=== PATIENT | male | born 1940 | race Caucasian/White ===

== ENCOUNTER → 2018-04-19 10:49 | Outpatient (BNVA) | payer MEDICARE, SELFPAY | PROVIDERS: PCP Nurse Practitioner Family; Referring Provider Nurse Practitioner Family; Visit Provider Student in an Organized Health Care Education/Training Program | DX: M25.551 Pain in right hip (principal); M25.552 Pain in left hip; M70.61 Trochanteric bursitis, right hip; M70.62 Trochanteric bursitis, left hip | CPT/HCPCS: 20610; 99213; J1040 ==

== ENCOUNTER 2018-10-06 12:19 | Outpatient (REF) | payer MEDICARE, SELFPAY | END 2018-10-06 12:39 | LOC: LBN 12:19 | PROVIDERS: PCP Nurse Practitioner Family; Visit Provider Nurse Practitioner Family | DX: R05 Cough (principal) | CPT/HCPCS: 87077; 87070; 87205 ==

== ENCOUNTER 2018-10-06 15:59 | Outpatient (CLI) | payer MEDICARE, SELFPAY ==
--- NOTE | 2018-10-06 10:42 | DI.RAD_ITS ---
SYMPTOMS/DIAGNOSIS: COPD EXACERBATION, ADVENTITIOUS BREATH SOUNDS, ? PNEUMONIA, ? COARSE CRACKLES LLL, J44.1, R06.89 PA AND LATERAL CHEST: Comparison 03/25/17. The heart size and pulmonary vasculature are within normal limits. The lungs are clear and well expanded. No effusions or pneumothoraces are identified. There is an old compression deformity at T 12. IMPRESSION: No acute pulmonary process.
== END 2018-10-06 16:19 ==
PROVIDERS: PCP Nurse Practitioner Family; Visit Provider Nurse Practitioner Family
DX: J44.1 Chronic obstructive pulmonary disease with (acute) exacerbation (principal); R06.89 Other abnormalities of breathing; R09.89 Other specified symptoms and signs involving the circulatory and respiratory systems
CPT/HCPCS: 71046

== ENCOUNTER 2018-10-27 09:00 | Outpatient (CLI) | payer MEDICARE, SELFPAY ==
[2018-10-27 10:09] LABS: Anion Gap 10.6 mmol/L (3-11); BUN 20 mg/dL (7-18); CO2 26.4 mmol/L (21.0-32.0); CREATININE 0.87 mg/dL (0.70-1.30); Calcium 8.9 mg/dL (8.5-10.1); Chloride 103 mmol/L (98-107); Cholesterol 136 mg/dL (50-200); Glucose 139 mg/dL (70-100); HDL Cholesterol 42 mg/dL (40-60); LDL CHOLESTEROL 74 mg/dL (<100); Magnesium 1.6 mg/dL (1.8-2.4); Potassium 4.1 mmol/L (3.5-5.1); Sodium 140 mmol/L (136-145); Triglyceride 95 mg/dL (30-150)
== END 2018-10-27 09:20 ==
PROVIDERS: PCP Nurse Practitioner Family; Visit Provider Nurse Practitioner Family
DX: I25.10 Atherosclerotic heart disease of native coronary artery without angina pectoris (principal); I10 Essential (primary) hypertension; E83.42 Hypomagnesemia
CPT/HCPCS: 36415; 80048; 80061; 83721; 83735

== ENCOUNTER 2018-12-06 02:02 | Outpatient (CLI) | payer MEDICARE, SELFPAY ==
--- NOTE | 2018-12-12 12:10 | DIABASSESS_ITS ---
DESCRIPTION/ASSESSMENT: Mr Villavicencio presents with his for Medical Nutrition Therapy for diabetes with focus on weight loss due to discomfort and inability to do some activities. He had lost 50 pounds, but has regained 20 over the past few years.A1c 6.6 BMI: NUTRITION: He and his have standard breakfast alternating between egg, potato cooked in olive oil, turkey mendoza with hot cereal, blueberries, banana, sausage, yogurt. Big meal at noon of meat, starch vegetable. Supper ice cream and nuts, cold meat [facility]; chips salsa, cereal and milk. Snacks on nuts. At bedtime he has chocolate milk, sujit crackers. PHYSICAL ACTIVITY: Walks the dog 1 mile every day and is active outside doing chores. MONITORING: Monitors blood sugars fasting in ~150s.; Denies stress. Overall healthy food choices and lifestyle. INTERVENTION: Reviewed food choices; hunger/fullness; times and amounts of food to see where decrease in amount consumed would not decrease satiety. PLAN: Cut out bedtime snack; cut out potatoes in AM; consider hunger when snacking. Monitor blood sugars occasionally at bedtime to assess impact of food choices if disired. IN 909: out 1000 - 3 MNT billed
== END 2018-12-06 02:22 ==
PROVIDERS: PCP Nurse Practitioner Family; Visit Provider Dietitian, Registered
DX: E11.9 Type 2 diabetes mellitus without complications (principal); Z71.3 Dietary counseling and surveillance
CPT/HCPCS: 97802

== ENCOUNTER → 2019-01-23 08:36 | Outpatient (BNVA) | payer MEDICARE, SELFPAY | PROVIDERS: PCP Nurse Practitioner Family; Visit Provider Psychiatry & Neurology Neurology | DX: G25.0 Essential tremor (principal); E11.9 Type 2 diabetes mellitus without complications; I10 Essential (primary) hypertension; J44.9 Chronic obstructive pulmonary disease, unspecified; Z87.891 Personal history of nicotine dependence | CPT/HCPCS: 99213 ==

== ENCOUNTER 2019-02-01 10:33 | Outpatient (REF) | payer MEDICARE, SELFPAY ==
[2019-02-01 12:33] LABS: COMMENT (LAB VIEW ONLY) 143.01 mg/dL; Microalb ug/mg Crea 4.6 ug/mg Cr
== END 2019-02-01 10:53 ==
LOC: LBN 10:33
PROVIDERS: PCP Nurse Practitioner Family; Visit Provider Nurse Practitioner Family
DX: E11.9 Type 2 diabetes mellitus without complications (principal)
CPT/HCPCS: 82043; 82570

== ENCOUNTER 2020-02-06 04:00 | Outpatient (CLI) | payer MEDICARE, SELFPAY ==
[2020-02-06 08:44] LABS: Hemoglobin A1C 6.3 % (3.8-5.6)
[2020-02-06 09:26] LABS: ALT 26 U/L (16-63); AST 18 U/L (15-37); Albumin 4.1 g/dL (3.4-5.0); Alkaline Phosphatase 81 U/L (46-116); Anion Gap 8.2 mmol/L (3-11); BUN 20 mg/dL (7-18); Bilirubin, Total 0.8 mg/dL (0.2-1.0); CO2 26.8 mmol/L (21.0-32.0); CREATININE 0.92 mg/dL (0.70-1.30); Calcium 9.1 mg/dL (8.5-10.1); Calculated LDL 53 mg/dL (<100); Chloride 105 mmol/L (98-107); Cholesterol 113 mg/dL (<200); Glucose 142 mg/dL (74-106); HDL Cholesterol 42 mg/dL (40-60); Magnesium 1.9 mg/dL (1.8-2.4); Potassium 4.3 mmol/L (3.5-5.1); Sodium 140 mmol/L (136-145); Total Protein 6.7 g/dL (6.4-8.2); Triglyceride 94 mg/dL (<150)
[2020-02-06 09:36] LABS: COMMENT (LAB VIEW ONLY) 127.31 mg/dL; Microalb ug/mg Crea 4.8 ug/mg Cr
== END 2020-02-06 04:20 ==
PROVIDERS: PCP Nurse Practitioner Family; Visit Provider Nurse Practitioner Family
DX: E11.9 Type 2 diabetes mellitus without complications (principal); E78.5 Hyperlipidemia, unspecified; E83.42 Hypomagnesemia
CPT/HCPCS: 80053; 80061; 82043; 82570; 83036; 83735

== ENCOUNTER 2020-04-07 09:04 | Outpatient (CLI) | payer MEDICARE, SELFPAY ==
[2020-04-09 13:41] LABS: Patient Race White; SARS-CoV-2 RNA Undetected (Undetected); SARS-CoV-2 Specimen Source Nasopharynx
== END 2020-04-07 09:24 ==
PROVIDERS: PCP Nurse Practitioner Family; Visit Provider Nurse Practitioner Family
DX: Z11.59 Encounter for screening for other viral diseases (principal)
CPT/HCPCS: U0003

== ENCOUNTER 2021-02-19 04:16 | Outpatient (CLI) | payer OTHER, SELFPAY ==
[2021-02-19 08:07] LABS: Abs Immature Grans 0.29 10^3/uL (0.0-0.06); Absolute Basophil Count 0.07 10^3/uL (0.0-0.2); Absolute Eosinophil Count 0.34 10^3/uL (0.0-0.7); Absolute Lymphocyte Count 1.46 10^3/uL (1.2-3.4); Absolute Monocyte Count 0.64 10^3/uL (0.1-0.8); Absolute Neutrophil Count 5.37 10^3/uL (1.2-6.7); Basophils % 0.9; Eosinophils % 4.2; HCT 40.1 % (40.0-50.0); HGB 13.1 g/dL (13.5-17.5); Immature Grans % 3.5; Lymphocytes % 17.9; MCH 30.5 pg (27.0-33.0); MCHC 32.7 % (32.0-36.0); MCV 93.5 fL (80-95); MPV 9.1 fL (8.0-11.0); Monocytes % 7.8; Neutrophils % 65.7; Nucleated RBC 0 %; Platelet Count 225 10^3/uL (130-400); RBC 4.29 10^6/uL (4.36-5.78); RDW 13.1 % (11.8-14.1); RDW-SD 44.8 fL; WBC 8.17 10^3/uL (4.4-10.8)
[2021-02-19 08:22] LABS: COMMENT (LAB VIEW ONLY) 106.43 mg/dL; Microalb ug/mg Crea 7.9 ug/mg Cr
[2021-02-19 08:25] LABS: Hemoglobin A1C 6.8 % (<5.7)
[2021-02-19 08:26] LABS: ALT 22 U/L (16-63); AST 14 U/L (15-37); Albumin 3.7 g/dL (3.4-5.0); Alkaline Phosphatase 95 U/L (46-116); Anion Gap 10.6 mmol/L (3-11); BUN 18 mg/dL (7-18); Bilirubin, Total 0.6 mg/dL (0.2-1.0); CO2 25.4 mmol/L (21.0-32.0); Calcium 8.7 mg/dL (8.5-10.1); Calculated LDL 65 mg/dL (<100); Chloride 103 mmol/L (98-107); Cholesterol 122 mg/dL (<200); Glucose 153 mg/dL (74-106); HDL Cholesterol 38 mg/dL (40-60); Potassium 4.3 mmol/L (3.5-5.1); Sodium 139 mmol/L (136-145); Total Protein 6.8 g/dL (6.4-8.2); Triglyceride 96 mg/dL (<150)
== END 2021-02-19 04:17 | disposition home or self-care (01) ==
PROVIDERS: PCP Nurse Practitioner Family; Visit Provider Nurse Practitioner Family
DX: E11.9 Type 2 diabetes mellitus without complications (principal); E78.5 Hyperlipidemia, unspecified; I10 Essential (primary) hypertension; K76.0 Fatty (change of) liver, not elsewhere classified; Z51.81 Encounter for therapeutic drug level monitoring
CPT/HCPCS: 36415; 80053; 80061; 82043; 82570; 83036; 85025

== ENCOUNTER 2021-02-20 01:22 | Outpatient (CLI) | payer OTHER, SELFPAY ==
[2021-02-20] MEDS: Albuterol HFA 18 GM 200 PUFF INH IH (11:17)
[2021-02-20] MEDS: Inhaler, Assist Device 1 EACH MC (11:17)
--- NOTE | 2021-02-22 18:37 | W.PFT ---
Date of service: 02/20/21 Time of Service: 10:13 Pulmonary Function Test Result Interpretation Spirometry: There is moderate airflow obstruction with significant bronchodilator response Lung Volumes: Lung volumes are normal Diffusion Capacity: Diffusion is normal Airway Pressure: Airway resistance is normal Impression Moderate airflow obstruction with a significant bronchodilator response. Note: When compared to 09/05/12, the FEV1, FVC and DLCO have all decreased. Clinical Correlation therefore is recommended.
== END 2021-02-20 01:23 | disposition home or self-care (01) ==
PROVIDERS: PCP Nurse Practitioner Family; Visit Provider Student in an Organized Health Care Education/Training Program
DX: J44.9 Chronic obstructive pulmonary disease, unspecified (principal)
CPT/HCPCS: 94060; 94618; 94726; 94729

== ENCOUNTER 2021-03-16 11:35 | Outpatient (CLI) | payer OTHER, SELFPAY ==
--- NOTE | 2021-03-16 15:13 | DI.RAD_ITS ---
Exam(s) XR RIBS LT W PA LAT CHEST EXAM: XR RIBS LT W PA LAT CHEST CLINICAL HISTORY: Pain on ribs 10-12 after a fall, r/o frx, R07.81PLEURODYNIA TECHNIQUE: 2D digital imaging was performed. COMPARISON: No exams were available for comparison FINDINGS: MEDIASTINUM: Normal. HEART: Normal. PULMONARY VASCULATURE: Normal. LUNGS: Clear. PLEURAL SPACE: No pleural effusion or pneumothorax. BONE:Normal. LEFT RIBS: Normal. OTHER FINDINGS:Sternal wires are in place. IMPRESSION: 1. No acute pulmonary findings. 2. Unremarkable left ribs. DATA REPOSITORY: RADIATION DOSE DELIVERED:
== END 2021-03-16 11:55 ==
PROVIDERS: PCP Nurse Practitioner Family; Visit Provider Family Medicine
DX: R07.81 Pleurodynia (principal)
CPT/HCPCS: 71046; 71100

== ENCOUNTER 2021-06-09 01:18 | Outpatient (CLI) | payer MEDICARE, SELFPAY ==
[2021-06-09 08:26] LABS: CREATININE 0.8 mg/dL (0.70-1.30)
[2021-06-09] MEDS: Normal Saline - Diluent 50 ML VIAL IV (08:40)
[2021-06-09] MEDS: Omnipaque 350 MG/ML 100 ML BTL IJ (08:41)
--- NOTE | 2021-06-09 08:59 | DI.CT_ITS ---
Exam(s) CT ABDOMEN WO/W EXAM: CT ABDOMEN WO/W CLINICAL HISTORY: adrenal nodule seen on LDCT,E27.8 TECHNIQUE: COMPARISON: CT RENAL COLIC WO CONTRAST from 04/27/2015 FINDINGS: CT examination of the upper abdomen was performed prior to and following intravenous infusion of 100 cc of Omnipaque 350. Venous phase images 15 minutes delayed images were obtained. A recent LD CT of the chest showed left adrenal nodule. On today's examination to left adrenal nodules are visible, each measuring 1.4 cm in diameter. These each have attenuation on noncontrast scanning between -30 and -40 Hounsfield units, these are consis tent with adrenal adenomas. Small nodules also show negative Hounsfield units on both venous phase a nd delayed imaging. Liver and spleen appear normal as does the pancreas. Gallbladder is contracted. No biliary dilatati on. No adenopathy identified. Multiple bilateral renal cysts and nonobstructing renal calculi are seen. IMPRESSION: There are 2 left adrenal nodules, these each have appearance consistent with adrenal adenomas and no further follow-up is recommended. RADIATION DOSE DELIVERED: 2,078.21mGy.cm Total DLP CTDIvol RADIATION OPTIMIZATION: All CT scans at this facility use at least one of these dose optimization te chniques: automated exposure control; mA and/or kV adjustment per patient size (includes targeted exa ms where dose is matched to clinical indication); or iterative reconstruction.
== END 2021-06-09 01:38 ==
PROVIDERS: PCP Nurse Practitioner Family; Visit Provider Student in an Organized Health Care Education/Training Program
DX: E27.8 Other specified disorders of adrenal gland (principal)
CPT/HCPCS: 74170; 82565; J3490

== ENCOUNTER 2021-06-22 15:30 | Outpatient (CLI) | payer MEDICARE, SELFPAY ==
--- NOTE | 2021-06-22 11:15 | DI.RAD_ITS ---
Exam(s) XR LUMBAR SPINE COMPLETE EXAM: XR LUMBAR SPINE COMPLETE CLINICAL HISTORY: assess bony alignment,decreased rom, acute lumbar radiculopathy,m54.16,. TECHNIQUE: 2D digital imaging was performed. COMPARISON: No exams were available for comparison FINDINGS: No evidence of acute fracture nor listhesis. Multilevel disc space narrowing noted at each level in the lumbosacral spine. Also degenerative facet joint [id number]. Bridging right-sided os teophytes at L2-3 level. Sacroiliac joints appear unremarkable. No osseous lesions. IMPRESSION: Multilevel chronic degenerative disc disease. At L3-4 level the amount of narrowing on the right nirali e of the disc space exceeds that on the left and this may imply asymmetric foraminal stenosis. There is probably also an element of central spinal canal stenosis in the lumbosacral spinal column. DATA REPOSITORY: RADIATION DOSE DELIVERED:
== END 2021-06-22 15:50 ==
PROVIDERS: PCP Nurse Practitioner Family; Visit Provider Nurse Practitioner Adult Health
DX: M51.36 Other intervertebral disc degeneration, lumbar region (principal); M25.78 Osteophyte, vertebrae
CPT/HCPCS: 72110

== ENCOUNTER 2021-07-25 09:08 | Emergency (ER) | payer OTHER, MEDICARE, SELFPAY ==
[2021-07-25 09:12] VITALS: BP 184/72; PULSE 69; RESP 20; TEMP 36; O2SAT 97
--- NOTE | 2021-07-25 09:30 | DI.CT_ITS ---
Exam(s) CT ABDOMEN PELVIS W EXAM: CT ABDOMEN PELVIS W CLINICAL HISTORY: L lower abd pain, L low back/sciatic pain. TECHNIQUE: Imaging Protocol: Axial computed tomography images with coronal and sagittal reformatted images were created and reviewed CONTRAST MATERIAL: Intravenous: Omnipaque 350 Contrast volume:100 ml Oral: / no COMPARISON: CT CT ABDOMEN WO/W from 06/09/2021 FINDINGS: ABDOMEN: Lung Bases: Mild dependent changes. Is dilated left ventricle and left atrium. Liver: Mild fatty infiltration.. No measurable mass. Gallbladder and biliary tract: No radiodense calculus or dilation. Pancreas: Normal density, no inflammatory process. Stable calcification in head. Spleen: Normal. Kidneys: Normal size, contour and axis. Bilateral cysts and nonobstructing stones. Adrenal glands: Stable small low-density nodule left. Abdominal Aorta: Abdominal portion non-dilated. Severe atherosclerotic changes Abdominal wall: There is a stable subxiphoid fatty containing hernia. PELVIS: Bladder: No gross wall thickening. No calculi.No focal mass. Bowel: Diverticulosis. No obstruction or bowel wall thickening. Appendix normal. Peritoneal cavity: No ascites, collection or mesenteric inflammatory response. Bones: Stable compression fracture of T11, moderate. Severe degenerative disc changes are noted thro ughout, most severe at L1-2. The prominent facet degenerative changes and disc bulging is also prese nt. Mild spondylolisthesis L4-5 secondary to facet degenerative changes. Severe central canal steno sis and severe neural foraminal narrowing is present at this level. Reproductive organs: Within normal limits. Lymph nodes: Unremarkable. Impression: Nonobstructing bilateral renal calculi. Severe degenerative changes in the spine causing neural foraminal and central canal stenosis. Stable appearing moderate compression fracture of T11. RADIATION DOSE DELIVERED: 1,514.52mGy.cm Total DLP DATA REPOSITORY: All CT scans at this facility are submitted to the National Radiology Data Registry (NRDR) Dose Index Registry (DIR) with the [employer] ([employer]). RADIATION OPTIMIZATION: All CT scans at this facility use at least one of these dose optimization te chniques: automated exposure control; mA and/or kV adjustment per patient size (includes targeted exa ms where dose is matched to clinical indication); or iterative reconstruction.
--- NOTE | 2021-07-25 09:35 | ED.GENADUL_ITS ---
Discharge Plan Disposition Patient Disposition: HOME Condition: Improving Discharge Details Clinical Impression: Acute left-sided back pain with sciatica Primary Care Provider: Sangita Rose ED Provider: Marko Romero Home Meds and New Rx's Prescriptions: New prednisone 20 mg tablet 20 mg PO BID 4 Days Qty: 8 RF: 0 Continued atorvastatin 80 mg tablet 80 mg PO DAILY RF: 0 magnesium oxide 500 mg capsule 500 mg PO DAILY Qty: 90 RF: 3 cbd 1,200 mg solution PO RF: 0 pantoprazole 20 mg tablet,delayed release (DR/EC) 20 mg PO DAILY Qty: 90 RF: 0 acetaminophen 500 mg tablet 1,000 mg PO TID PRNRF: 0 methocarbamol 500 mg tablet 500 - 1,000 mg PO TID PRN (Reason: muscle spasm) Qty: 40 RF: 0 albuterol sulfate 2.5 mg/0.5 mL solution for nebulization 2.5 mg Inhalation Q4-6H PRN Qty: 60 RF: 3 ibuprofen 200 mg tablet 400 mg PO BID PRNRF: 0 Hold Instructions: Home Medication placed on hold at Doctor's office aspirin 81 MG tablet,delayed release (DR/EC) 81 mg PO DAILY RF: 0 (DME) Aerochamber Plus Flow-Vu,S Msk 1 EACH spacer 1 ea Miscellaneous PRN RF: 0 polyethylene glycol 3350 [GlycoLax] 527 GM powder 17 g PO DAILY RF: 0 (DME) lancets [OneTouch Delica Lancets] 1 EACH misc 1 ea Miscellaneous DAILY Qty: 100 RF: 3 albuterol sulfate [ProAir HFA] 8.5 GM HFA aerosol inhaler 1 - 2 puff Inhalation Q4-6H PRN Qty: 1 RF: 3 Breo Ellipta 1 EACH blister with device 1 ea Inhalation DAILY RF: 0 Incruse Ellipta 62.5 MCG blister with device 62.5 mcg Inhalation DAILY RF: 0 cholecalciferol (vitamin D3) 25 mcg (1,000 unit) tablet 1,000 unit PO BID RF: 0 benzonatate 100 mg capsule 100 mg PO TID PRN (Reason: cough) Qty: 90 RF: 3 (DME) Blood Glucose Test Strip See Rx Instructions .ROUTE .MEDSUPPLY Qty: 100 RF: 3 metoprolol succinate 25 mg tablet extended release 24 hr 25 mg PO DAILY Qty: 90 RF: 3 losartan 25 mg tablet 12.5 mg PO DAILY Qty: 45 RF: 3 primidone 50 mg tablet 100 mg PO HS Qty: 180 RF: 3 citalopram 40 mg tablet 40 mg PO DAILY Qty: 90 RF: 3 Discharge Instructions Instructions: Back Pain (ED) Additional Instructions: Follow-up with physical therapy this week as planned. Avoid heavy lifting, bending over, prolonged car ride or sitting as these may exacerbate your discomfort. Take prednisone as prescribed until finished, next dose is tomorrow. You may use the provided hydrocodone if needed for severe or break pain. This medication contains 325 mg of Tylenol and you should not take it in addition to your Tylenol. May apply ice to area to reduce discomfort. Return to the emergency department for any acute concerns. Medical Decision Making 80-year-old male presents with his from home. He has had 2 weeks of left low back/left SI joint pain for which he has had a number of outpatient trials including physical therapy with water based treatment, an x-ray obtained on June 22 showing degenerative disease of the L-spine. He has also been placed on methocarbamol he states the pain was improved after physical therapy on Tuesday and over the past 2-1/2 days has worsened and now located in his left SI joint area with some radiation to the hip. He also endorses left lower quadrant abdominal pain that he began to feel this morning. Patient is slightly hypertensive and in some discomfort that he describes as mild to moderate. His vital signs show a blood pressure of 184/72, temp of 36. He is tender in the left SI joint, left sciatic notch and somewhat so although mildly in the left lower quadrant. Differential diagnosis is broad including sciatica, lumbar radiculopathy, bony disease, pyriformis syndrome, & must exclude mass or inflammation of the left lower quadrant. Patient IV established, given parenteral meds, further laboratory testing and CT imaging. The patient's diagnostic studies reveal reassuring chemistries, unremarkable CBC and urinalysis that is concentrated. CT imaging reveals multilevel degenerative disc disease of the spine. Chronic T11 compression deformity. Note of diverticulosis, note of right renal calculi, note of borderline splenomegaly. Most consistent with sciatica or piriformis syndrome. We will discussed with the patient low-dose steroids and ongoing NSAID, physical therapy stretching. Lab Data Lab results reviewed: Yes I reviewed the patient's lab results. Labs: Laboratory Results - last 24 hr 07/25/21 07/25/21 07/25/21 09:48 09:48 09:48 WBC 6.99 RBC 4.30 L Hgb 13.5 Hct 40.3 MCV 93.7 MCH 31.4 MCHC 33.5 RDW 13.0 Plt Count 188 MPV 9.4 Immature Gran % 1.1 Neutrophils % 71.7 Lymphocytes % 14.3 Monocytes % 8.7 Eosinophils % 3.6 Basophils % 0.6 Nucleated RBC % 0 Absolute Neutrophils 5.01 Absolute Lymphocytes 1.00 L Absolute Monocytes 0.61 Absolute Eosinophils 0.25 Absolute Basophils 0.04 VBG Lactate 1.4 Sodium 139 Potassium 4.3 Chloride 104 Carbon Dioxide 28.4 Anion Gap 6.6 BUN 14 Creatinine 0.9 Estimated GFR/1.73 m2 >= 60.00 Glucose 162 H Calcium 8.6 Total Bilirubin 0.7 AST 15 ALT 21 Alkaline Phosphatase 96 Total Protein 6.7 Albumin 3.8 Lipase 110 Urine Color Urine Clarity Urine pH Ur Specific [place] Urine Protein Urine Ketones Urine Blood Urine Nitrite Urine Bilirubin Urine Urobilinogen Ur Leukocyte Esterase Urine Glucose 07/25/21 09:50 WBC RBC Hgb Hct MCV MCH MCHC RDW Plt Count MPV Immature Gran % Neutrophils % Lymphocytes % Monocytes % Eosinophils % Basophils % Nucleated RBC % Absolute Neutrophils Absolute Lymphocytes Absolute Monocytes Absolute Eosinophils Absolute Basophils VBG Lactate Sodium Potassium Chloride Carbon Dioxide Anion Gap BUN Creatinine Estimated GFR/1.73 m2 Glucose Calcium Total Bilirubin AST ALT Alkaline Phosphatase Total Protein Albumin Lipase Urine Color Yellow Urine Clarity Clear Urine pH 5.5 Ur Specific [place] >= 1.030 H Urine Protein Negative Urine Ketones Negative Urine Blood Negative Urine Nitrite Negative Urine Bilirubin Negative Urine Urobilinogen 0.2 Ur Leukocyte Esterase Negative Urine Glucose Negative HPI General Mode of arrival: ambulatory . Date/Time Provider Initiated Documentation: 07/25/21 09:09 . Limitations to Documentation: no limitations . Information obtained by: patient . History of Present Illness 80 year old M presents to the emergency department with the chief complaint of Left lower quadrant and left low back pain, described as moderate and similar to prior episodes, Quality is described as dull and constant, and is localized to the back, abdomen and left. Patient distal. Patient started experiencing this week(s) and it has been intermittent. Rest improves symptom(s), Patient notes denies fever/chills and loss of appetite. Patient did receive the following treatments prior to arrival, other (Physical therapy, methocarbamol, [id number] pain medication) Related Data Home Medications Medication Instructions Recorded Confirmed Aerochamber Plus Flow-Vu,S Msk 09/28/12 07/25/21 aspirin 81 mg PO DAILY tab-cap 09/28/12 07/25/21 lancets [OneTouch Delica Lancets] #100 ea 10/13/16 07/15/21 polyethylene glycol 3350 [GlycoLax] 17 g PO DAILY 10/13/16 07/25/21 albuterol sulfate [ProAir HFA] 1 - 2 puff INHALATION Q4-6H PRN #1 04/18/17 07/25/21 inhaler Breo Ellipta 1 ea INHALATION DAILY 09/28/17 07/25/21 Incruse Ellipta 62.5 mcg INHALATION DAILY 09/28/17 07/25/21 atorvastatin 80 mg tablet 80 mg PO DAILY 04/07/18 07/25/21 magnesium oxide 500 mg capsule 500 mg PO DAILY #90 tab-cap 11/02/18 07/25/21 cholecalciferol (vitamin D3) 25 1,000 unit PO BID tab 11/01/19 07/25/21 mcg (1,000 unit) tablet benzonatate 100 mg capsule 100 mg PO TID PRN #90 tab-cap 11/08/19 07/25/21 blood sugar diagnostic #100 each 07/24/20 07/25/21 cbd PO 08/15/20 07/15/21 pantoprazole 20 mg tablet,delayed 20 mg PO DAILY #90 tab-cap 08/15/20 07/25/21 release metoprolol succinate 25 mg 25 mg PO DAILY #90 tab-cap 10/06/20 07/25/21 tablet,extended release 24 hr losartan 25 mg tablet 12.5 mg PO DAILY #45 tab-cap 11/10/20 07/25/21 primidone 50 mg tablet 100 mg PO HS #180 tab-cap 11/27/20 07/25/21 citalopram 40 mg tablet 40 mg PO DAILY #90 tab-cap 01/15/21 07/25/21 albuterol sulfate 2.5 mg/0.5 mL 2.5 mg INHALATION Q4-6H PRN #60 02/09/21 07/25/21 solution for nebulization vial ibuprofen 200 mg tablet 400 mg PO BID PRN tab 06/15/21 07/25/21 acetaminophen 500 mg tablet 1,000 mg PO TID PRN tab 07/15/21 07/25/21 methocarbamol 500 mg tablet 500 - 1,000 mg PO TID PRN #40 tab 07/15/21 07/25/21 prednisone 20 mg PO BID 4 Days #8 tab 07/25/21 Previous Rx's Medication Instructions Recorded albuterol sulfate [ProAir HFA] 1 - 2 puff INHALATION Q4-6H PRN #1 04/18/17 inhaler magnesium oxide 500 mg capsule 500 mg PO DAILY #90 tab-cap 11/02/18 benzonatate 100 mg capsule 100 mg PO TID PRN #90 tab-cap 11/08/19 blood sugar diagnostic #100 each 07/24/20 pantoprazole 20 mg tablet,delayed 20 mg PO DAILY #90 tab-cap 08/15/20 release metoprolol succinate 25 mg 25 mg PO DAILY #90 tab-cap 10/06/20 tablet,extended release 24 hr losartan 25 mg tablet 12.5 mg PO DAILY #45 tab-cap 11/10/20 primidone 50 mg tablet 100 mg PO HS #180 tab-cap 11/27/20 citalopram 40 mg tablet 40 mg PO DAILY #90 tab-cap 01/15/21 albuterol sulfate 2.5 mg/0.5 mL 2.5 mg INHALATION Q4-6H PRN #60 02/09/21 solution for nebulization vial methocarbamol 500 mg tablet 500 - 1,000 mg PO TID PRN #40 tab 07/15/21 prednisone 20 mg PO BID 4 Days #8 tab 07/25/21 Allergies Allergy/AdvReac Type Severity Reaction Status Date / Time codeine AdvReac Unknown Verified 07/25/21 09:17 General Stated Complaint: Nk/Back Pain YUE: 3 Review of Systems Narrative: 6 systems reviewed and otherwise negative, immunized against COVID-19 x3 PFSH All Active Problems (Updated 07/25/21 @ 11:27 by Marko Romero MD) Acute left-sided back pain with sciatica (Acute) Adrenal nodule (Acute) Rib pain on left side (Acute) Trochanteric bursitis of both hips (Chronic) Non-alcoholic fatty liver disease (Chronic 09/29/12) Type 2 diabetes mellitus (Chronic) Dx: 10/2018 Obesity (BMI 30-39.9) (Chronic) Advance directive in chart (Chronic 04/22/15) On-file with [facility] as of 04/22/2015 Sensorineural hearing loss, bilateral (Chronic 08/29/17) Osteoarthritis of knee (Chronic 08/13/13) Hypomagnesemia (Chronic 10/07/17) Hyperlipidemia, unspecified (Chronic 07/09/11) LDL GOAL 100 Gastroesophageal reflux disease (Chronic 07/09/11) Essential tremor (Chronic 07/27/11) Essential hypertension (Chronic 07/09/11) GOAL <130/80 Depression (Chronic 06/04/14) Long-term Celexa Rx Chronic obstructive pulmonary disease (COPD) (Chronic 09/29/12) MILD, 08/2012 PFTs FEV1 2.06 (70% pred and FVC), no response to bronchodilator; 11/17/15 bronchoscopy [facility]: NEG for [employer], fungus, & bacteria; cytology NEG for malignancy Cardiomyopathy (Chronic 04/10/12) BPH (benign prostatic hyperplasia) (Chronic 04/10/12) ASCVD (arteriosclerotic cardiovascular disease) (Chronic) S/p 5 vessel CABG 1995 Echo 09/27/2014 with normal LVEF Medical History Cataract 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 Essential tremor Sister Hypertensive disorder, systemic arterial Heart disease Brother , [place] at age 78. Heart disease Essential tremor Brother Heart disease Daughter Essential tremor Social History Smoking/Tobacco Use Status: Former Tobacco Use Smoking risk assessment performed?: Yes Alcohol Intake: current Alcohol Intake frequency: holidays/special occasions only Drug use: Never Substance use type: does not use Adopted: No Caregiver/Support person: No Foster care: No Household members: spouse Number of Children: 3 Communication Needs: Hard of Hearing Education Level: high school current occupation: Ret[employer] Pets and animals: Yes Pets and animals: dog(s) Current gender identity: male What type of physical activity do you participate in: walking Duration: > 90 minutes/day Frequency: daily Seatbelt use: always Water heater temp set <120 deg: Yes Working smoke detector in home: Yes Fire extinguisher in home: Yes Carbon monox detector in home: Yes Do you feel safe at home: Yes Do you feel safe in your relationship?: Yes Additional Social history: He has 5 step-children in addition to 3 biological. Exam Narrative Exam Narrative: GEN: awake, alert, oriented 3. Pleasant, well groomed, interactive. HEAD: Normocephalic, atraumatic ENT: Mucous membranes moist, oropharynx unremarkable, External ear exam unremarkable EYES: PERRL, EOMI NECK: Full ROM, no ANGELITO, no menigismus CHEST/RESP: Nontender, clear to auscultation bilateral, no wheeze/rhonchi/rales CARDIOVASCULAR: RRR, no murmur, rub [place]. 2+ Rad pulse bilateral ABDOMEN: Soft, tender left lower quadrant to deep palpation without rebound or guarding, no mass. +Bowel sounds EXT: Full ROM, no edema, no rash. No pain with internal or external rotation of hips. Sensation intact throughout including saddle distribution. Great toe proprioception intact bilaterally. Motor 5 out of 5 bilaterally. Tender at left sciatic notch, left SI joint. Back: No midline tenderness, step-off or deformity. Neuro: Grossly normal neurologic exam, conversant, interactive. Psych: Speech fluent, thoughts congruent, affect normal Course Vital Signs Vital signs: Vital Signs Temperature 36 C L 07/25/21 09:12 Pulse 69 07/25/21 09:12 Respiratory Rate 20 07/25/21 09:12 Blood Pressure 184/72 H 07/25/21 09:12 Pulse Oximetry 97 07/25/21 09:12 Temperature 36 C L 07/25/21 09:12 Temperature Source Temporal Artery Scan 07/25/21 09:12 Pulse 69 07/25/21 09:12 Respiratory Rate 20 07/25/21 09:12 Respiratory Effort Non-Labored 07/25/21 09:15 Blood Pressure 184/72 H 07/25/21 09:12 Blood Pressure Position Supine 07/25/21 09:12 Pulse Oximetry 97 07/25/21 09:12 Oxygen Delivery Method Room Air 07/25/21 09:12 Oxygen Flow Rate 0 07/25/21 09:12 Pain Level 9 07/25/21 09:18
[2021-07-25] MEDS: Normal Saline 1,000 ML 125 ML IV (09:48)
[2021-07-25 09:53] LABS: Lactate 1.4 mmol/L (0.6-1.4)
[2021-07-25] MEDS: ACETAMINOPHEN 1,000 MG/100 ML BTL 400 MG IVPB (09:53)
[2021-07-25 09:56] LABS: Abs Immature Grans 0.08 10^3/uL (0.0-0.06); Absolute Basophil Count 0.04 10^3/uL (0.0-0.2); Absolute Eosinophil Count 0.25 10^3/uL (0.0-0.7); Absolute Monocyte Count 0.61 10^3/uL (0.1-0.8); Absolute Neutrophil Count 5.01 10^3/uL (1.2-6.7); Basophils % 0.6; Eosinophils % 3.6; HCT 40.3 % (40.0-50.0); HGB 13.5 g/dL (13.5-17.5); Immature Grans % 1.1; Lymphocytes % 14.3; MCH 31.4 pg (27.0-33.0); MCHC 33.5 % (32.0-36.0); MCV 93.7 fL (80-95); MPV 9.4 fL (8.0-11.0); Monocytes % 8.7; Neutrophils % 71.7; Nucleated RBC 0 %; Platelet Count 188 10^3/uL (130-400); RDW-SD 44.7 fL; WBC 6.99 10^3/uL (4.4-10.8)
[2021-07-25 09:59] LABS: Bilirubin Negative (Negative); Blood Negative (Negative); Clarity Clear (Clear); Glucose Negative (Negative); Ketones Negative (Negative); Leukocyte Esterase Negative (Negative); Nitrite Negative (Negative); Specific Gravity >= 1.030 (1.005-1.025); Urobilinogen 0.2 EU/dL (Up TO 0.2); pH 5.5 (5-8)
[2021-07-25 10:10] LABS: ALT 21 U/L (16-63); AST 15 U/L (15-37); Albumin 3.8 g/dL (3.4-5.0); Alkaline Phosphatase 96 U/L (46-116); Anion Gap 6.6 mmol/L (3-11); BUN 14 mg/dL (7-18); Bilirubin, Total 0.7 mg/dL (0.2-1.0); CO2 28.4 mmol/L (21.0-32.0); CREATININE 0.9 mg/dL (0.70-1.30); Calcium 8.6 mg/dL (8.5-10.1); Chloride 104 mmol/L (98-107); Glucose 162 mg/dL (74-106); Lipase 110 U/L (73-393); Potassium 4.3 mmol/L (3.5-5.1); Sodium 139 mmol/L (136-145); Total Protein 6.7 g/dL (6.4-8.2)
[2021-07-25] MEDS: Omnipaque 350 MG/ML 100 ML BTL IJ (10:53)
--- NOTE | 2021-07-25 11:17 | DI.VRAD_ITS ---
PROCEDURE INFORMATION: Exam: CT Abdomen And Pelvis With Contrast Exam date and time: 07/25/2021 9:35 AM Age: 80 years old Clinical indication: Other: L lower abd pain, L low back/sciatic pain TECHNIQUE: Imaging protocol: Computed tomography of the abdomen and pelvis with contrast. Contrast material: OMNIPAQUE 350; Contrast volume: 100 ml; Contrast route: INTRAVENOUS (IV); COMPARISON: CT ABDOMEN WO/W 06/09/2021 8:41 AM FINDINGS: Lungs: Mild dependent changes at the lung bases. Liver: Stable subcentimeter low-attenuation structure in the lateral segment of left hepatic lobe, too small to characterize by CT, but likely benign. Otherwise unremarkable liver. Gallbladder and bile ducts: Normal. No calcified stones. No ductal dilation. Pancreas: Stable linear calcification in the pancreatic head. Otherwise unremarkable pancreas. Spleen: Calcified splenic granuloma. 13.1 cm maximum dimension of the spleen. Adrenal glands: Fat containing left adrenal nodule, consistent with a benign myelolipoma requiring no further follow-up, measuring 1.2 x 1.1 cm (-25 HU), stable. Unremarkable right adrenal gland. Kidneys and ureters: Rounded water attenuation cystic structures in the right kidney, requiring no further follow-up, measuring as large as 3 cm in the right lower pole. Rounded water attenuation simple cyst in the left kidney, which requires no further follow-up, measuring 1.4 cm in the lower pole. Two nonobstructive right kidney stones, measuring as large as 6 mm in the upper pole. Two nonobstructive left kidney stones, measuring as large as 3 mm. Otherwise unremarkable kidneys. Stomach and bowel: Scattered colonic diverticula, without evidence of diverticulitis. No other gross bowel abnormalities. No bowel obstruction. Appendix: A normal appendix is seen. Intraperitoneal space: Unremarkable. No free air. No significant fluid collection. Vasculature: Unremarkable. No abdominal aortic aneurysm. Lymph nodes: Unremarkable. No enlarged lymph nodes. Urinary bladder: Unremarkable as visualized. Reproductive: Unremarkable as visualized. Bones/joints: Demineralization of the osseous structures somewhat limits sensitivity for detection of fractures. Median sternotomy wires. No acute or suspicious osseous abnormalities. Chronic compression deformity of T11 superior vertebral endplate which demonstrates moderate loss of height. Severe degenerative disc disease is seen at L1-L2, with associated marked disc space narrowing and sclerosis of the vertebral endplates. Moderate disc space height loss at L2 through L4. Mild disc space height loss at L5/S1. Grade I degenerative anterior spondylolisthesis of L4 on L5. Soft tissues: Small to moderate size stable fat containing subxiphoid ventral midline hernia. IMPRESSION: 1. Diverticulosis. 2. Bilateral right renal calculi. 3. Borderline splenomegaly. 4. Chronic compression deformity of T11 superior vertebral endplate which demonstrates moderate loss of height. 5. Severe multilevel degenerative disc disease. Dictated and Authenticated by: Patience Martinez MD. Ordering:CHARLOTTE Zhu MD
[2021-07-25 11:32] VITALS: BP 129/65; RESP 16; O2SAT 96
[2021-07-25] MEDS: predniSONE 20 MG TAB 40 MG PO (11:32)
[2021-07-25 11:43] VITALS: BP 129/65; PULSE 69; RESP 16; TEMP 36; O2SAT 96
== END 2021-07-25 11:45 | disposition home or self-care (01) ==
PROVIDERS: Emergency Provider Emergency Medicine; PCP Nurse Practitioner Family
DX: M54.42 Lumbago with sciatica, left side (principal); R10.32 Left lower quadrant pain; I10 Essential (primary) hypertension; M51.36 Other intervertebral disc degeneration, lumbar region
CPT/HCPCS: 36415; 80053; 83690; 96365; 96375; 99285; 74177; 81003; 83605; 85025; 99284; J0131; J3490; J7512

== ENCOUNTER 2022-04-07 11:56 | Outpatient (REF) | payer MEDICARE, SELFPAY ==
[2022-04-08 20:00] LABS: Albumin ug/mg Crea 7 (<30); Albumin, Ur 0.9 mg/dL (See Note); Creatinine, Ur 132.8 mg/dL (See Note)
== END 2022-04-07 11:57 | disposition home or self-care (01) ==
LOC: LBN 11:56
PROVIDERS: PCP Nurse Practitioner Family; Visit Provider Nurse Practitioner Family
DX: E11.9 Type 2 diabetes mellitus without complications (principal)
CPT/HCPCS: 82043; 82570

== ENCOUNTER 2022-05-07 08:54 | Outpatient (CLI) | payer MEDICARE, SELFPAY ==
--- NOTE | 2022-05-07 08:45 | DI.RAD_ITS ---
Exam(s) XR KNEE RT 3V AP,LAT,YESY EXAM: XR KNEE RT 3V AP,LAT,YESY CLINICAL HISTORY: right knee DJD. TECHNIQUE: 2D digital imaging was performed. COMPARISON: CR KNEES BILAT AP STANDING LATS from 01/03/2017 FINDINGS: 3 views No evidence fracture. Small amount of joint fluid. There is no significant narrowing of the medial lateral compartments on the weight-bearing view. Mil d chondrocalcinosis noted in outer aspect of compartment. There is no marginal osteophytosis. Minim al degenerative changes noted patellofemoral compartment. Bone density normal. No osseous lesions. Vascular calcification noted in the popliteal artery and runoff vessels of the calf. IMPRESSION: DATA REPOSITORY: RADIATION DOSE DELIVERED:
--- NOTE | 2022-05-07 08:45 | DI.RAD_ITS ---
Exam(s) XR SHOULDER RT COMPLETE 2+V EXAM: XR SHOULDER RT COMPLETE 2+V CLINICAL HISTORY: right shoulder pain. TECHNIQUE: 2D digital imaging was performed. COMPARISON: No exams were available for comparison FINDINGS: 3 views No evidence of fracture or dislocation nor abnormal soft tissue calcification. There is no significa nt diminution of the subacromial space. There is some degenerative change in glenohumeral joint incl uding joint space narrowing and moderate size osteophyte on the inferior articular surface of humeral head. Also some degenerative change in the AC joint. IMPRESSION: Degenerative changes in the glenohumeral joint, as described above. Sternotomy wires incidentally noted. DATA REPOSITORY: RADIATION DOSE DELIVERED:
== END 2022-05-07 08:55 | disposition home or self-care (01) ==
LOC: DIORS 08:54
PROVIDERS: PCP Nurse Practitioner Family; Referring Provider Nurse Practitioner Family; Visit Provider Physician Assistant
DX: M17.11 Unilateral primary osteoarthritis, right knee; M19.011 Primary osteoarthritis, right shoulder
CPT/HCPCS: 20610; 73562; 99213; 73030; J1040

== ENCOUNTER → 2022-05-20 02:35 | Outpatient (CLI) | payer MEDICARE, SELFPAY ==
--- NOTE | 2022-05-20 08:30 | DI.RAD_ITS ---
Exam(s) RF JOINT INJECTION FLUORO GUID EXAM: RF JOINT INJECTION FLUORO GUID CLINICAL HISTORY: R SHOULDER INJ UNDER FLUORO,ARTHRITIS RT GLENOHUMERAL JOINT, M19.011 TECHNIQUE: 2D and realtime digital imaging was performed. COMPARISON: No exams were available for comparison FINDINGS: Fluoroscopy was utilized by Dr. Linn during right shoulder injection. Hard copy confirms intra-a rticular injection. IMPRESSION: RADIATION DOSE DELIVERED: gino Groves=0.24 mGy Total DLP
[2022-05-20] MEDS: Bupivacaine 0.5% Pres-Free 10 ML VIAL 5 ML IJ (15:42)
[2022-05-20] MEDS: Omnipaque 300 MG/ML 10 ML BTL IJ (15:42)
[2022-05-20] MEDS: methylPREDNISolone ACETATE 80 MG/ML VIAL IM (15:43)
--- NOTE | 2022-05-21 07:14 | W.PROCNOTE ---
Date of service: 05/20/22 Time of Service: 15:40 Procedure Note Date of procedure: 05/20/22 Procedure: Right Shoulder Injection Surgeon/Proceduralist/Physician: Mainor Linn Procedure Diagnosis: Right Shoulder Arthritis Procedure Indications: Mr. Villavicencio has had persistent pain of the RIGHT shoulder. Noninvasive measures have been tried. To serve as both diagnostic and therapeutic, an injection under fluoroscopy was recommended. I had discussed the risks of the procedure and the patient elected to proceed. Procedure Description: Mr. Villavicencio was greeted in the flouroscopy room. The correct side was identified and the consent was reviewed with the patient and signed. The patient was then placed in the supine position on the fluoroscopy table. The RIGHT shoulder was then prepped with Chloraprep. The anterior injection starting point was identiifed by bony landmarks and fluoroscopy. The skin and soft tissue in the tract of the injection was anesthetized with 1% Lidocaine. A spinal needle was then inserted deep into the shoulder joint at the level of the recess between the glenoid and superior humeral head. A small amount of Omnipaque solution was injected to confirm intraarticular placement. Once confirmed, the shoulder was injected with 5cc of 0.5% Bupivicaine and 80mg of Depo-Medrol. A bandaid was placed on the injection site. The patient tolerated the procedure well.
== END ==
PROVIDERS: PCP Nurse Practitioner Family; Visit Provider Student in an Organized Health Care Education/Training Program
DX: M19.011 Primary osteoarthritis, right shoulder (principal); M25.511 Pain in right shoulder
CPT/HCPCS: 20610; 77002; J1040

== ENCOUNTER 2022-06-02 16:21 | Outpatient (REF) | payer MEDICARE, SELFPAY ==
[2022-06-02 21:13] LABS: COVID-19 PCR Negative (Negative); Influenza A PCR Negative (Negative); Influenza B PCR Negative (Negative); RSV PCR Negative (Negative)
[2022-06-02 21:18] LABS: Source Nasopharynx
== END 2022-06-02 16:22 | disposition home or self-care (01) ==
LOC: LBN 16:21
PROVIDERS: Nurse Practitioner Adult Health; PCP Nurse Practitioner Family; Visit Provider Nurse Practitioner Family
DX: R68.83 Chills (without fever) (principal); R05.8 Other specified cough; Z20.822 Contact with and (suspected) exposure to COVID-19
CPT/HCPCS: 87637

== ENCOUNTER → 2022-06-07 13:09 | Outpatient (CLI) | payer MEDICARE, SELFPAY ==
--- NOTE | 2022-06-07 13:50 | DI.RAD_ITS ---
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 COMPARISON: CR XR RIBS LT W PA LAT CHEST from 03/16/2021 FINDINGS: HEART: Normal size. Aorta: Mildly ectatic. PULMONARY VASCULATURE: Normal. LUNGS: Areas of linear scarring bilaterally, otherwise clear. PLEURAL SPACE: No pleural effusion or pneumothorax. BONE:Stable T12 compression fracture. Degenerative disc changes. Sternal wires. IMPRESSION: No acute abnormality. DATA REPOSITORY: RADIATION DOSE DELIVERED:
== END ==
PROVIDERS: PCP Nurse Practitioner Family; Visit Provider Nurse Practitioner Adult Health
DX: R05.8 Other specified cough (principal); R68.83 Chills (without fever); J44.9 Chronic obstructive pulmonary disease, unspecified; I42.8 Other cardiomyopathies
CPT/HCPCS: 71046

== ENCOUNTER 2022-06-30 03:06 | Outpatient (CLI) | payer MEDICARE, SELFPAY ==
[2022-06-30 08:32] LABS: Abs Immature Grans 0.05 10^3/uL (0.0-0.06); Absolute Basophil Count 0.05 10^3/uL (0.0-0.2); Absolute Eosinophil Count 0.29 10^3/uL (0.0-0.7); Absolute Lymphocyte Count 1.05 10^3/uL (1.2-3.4); Absolute Monocyte Count 0.64 10^3/uL (0.1-0.8); Absolute Neutrophil Count 2.98 10^3/uL (1.2-6.7); Eosinophils % 5.7; HCT 40.7 % (40.0-50.0); HGB 13.3 g/dL (13.5-17.5); Lymphocytes % 20.8; MCH 31.1 pg (27.0-33.0); MCHC 32.7 % (32.0-36.0); MCV 95 fL (80-95); MPV 9.3 fL (8.0-11.0); Monocytes % 12.6; Neutrophils % 58.9; Platelet Count 185 10^3/uL (130-400); RBC 4.28 10^6/uL (4.36-5.78); RDW 13.4 % (11.8-14.1); RDW-SD 47.1 fL; WBC 5.06 10^3/uL (4.4-10.8)
[2022-06-30 08:47] LABS: Hemoglobin A1C 7.1 % (<5.7)
[2022-06-30 09:02] LABS: ALT 27 U/L (16-63); AST 22 U/L (15-37); Albumin 3.8 g/dL (3.4-5.0); Alkaline Phosphatase 106 U/L (46-116); Anion Gap 7.2 mmol/L (3-11); BUN 16 mg/dL (7-18); Bilirubin, Total 0.7 mg/dL (0.2-1.0); CO2 29.8 mmol/L (21.0-32.0); Calcium 8.9 mg/dL (8.5-10.1); Calculated LDL 71 mg/dL (<100); Chloride 102 mmol/L (98-107); Cholesterol 137 mg/dL (<200); Estimated GFR 74.68 (mL/min/1.73m2); Glucose 165 mg/dL (74-106); HDL Cholesterol 51 mg/dL (40-60); Potassium 4.6 mmol/L (3.5-5.1); Sodium 139 mmol/L (136-145); Total Protein 7.1 g/dL (6.4-8.2); Triglyceride 77 mg/dL (<150)
== END 2022-06-30 03:07 | disposition home or self-care (01) ==
LOC: LBO 03:06
PROVIDERS: PCP Nurse Practitioner Family; Visit Provider Nurse Practitioner Family
DX: I10 Essential (primary) hypertension (principal); E78.5 Hyperlipidemia, unspecified; E11.9 Type 2 diabetes mellitus without complications; E83.42 Hypomagnesemia
CPT/HCPCS: 36415; 80053; 80061; 83036; 83735; 85025

== ENCOUNTER 2022-07-16 00:33 | Outpatient (CLI) | payer MEDICARE, SELFPAY ==
--- NOTE | 2022-07-16 08:15 | DI.US_ITS ---
Exam(s) US LOWER EXTREMITY VENOUS RT EXAM: US LOWER EXTREMITY VENOUS RT CLINICAL HISTORY: lt sided rib pain, rt knee effusion,pleurodynia, r07.81,m25.461,?dvt. TECHNIQUE: Lower extremity venous ultrasound performed using grayscale, color-flow, and spectral Do ppler analysis. COMPARISON: No exams were available for comparison FINDINGS: The common femoral, femoral and popliteal veins demonstrate normal compressibility, augmentation, and color Doppler. The posterior tibial veins are patent. No saphenous vein thrombosis or other superfi cial venous thrombosis is seen. No hematoma or Ibarra's cyst is seen. IMPRESSION: Negative lower extremity ultrasound. No evidence of DVT. DATA REPOSITORY:
== END 2022-07-16 00:53 ==
LOC: DI 00:33
PROVIDERS: PCP Nurse Practitioner Family; Visit Provider Family Medicine
DX: R07.81 Pleurodynia (principal); M25.561 Pain in right knee; M25.461 Effusion, right knee
CPT/HCPCS: 93971

== ENCOUNTER 2022-07-17 10:47 | Emergency (ER) | payer MEDICARE, SELFPAY ==
[2022-07-17 11:08] VITALS: BP 161/68; PULSE 69; RESP 18; TEMP 37; O2SAT 97
--- NOTE | 2022-07-17 11:29 | W.ED.GENAD ---
Discharge Plan Disposition Patient Disposition: Home Condition: Stable Discharge Details Clinical Impression: Acute pain of right knee Primary Care Provider: Sangita Rose ED Provider: Elin Maxwell Home Meds and New Rx's Prescriptions: Continued magnesium oxide 500 mg capsule 500 mg PO DAILY Qty: 90 3RF acetaminophen 500 mg tablet 1,000 mg PO TID PRN acetylcysteine [NAC] 600 mg capsule 600 mg PO BID Qty: 60 7RF ibuprofen 200 mg tablet 400 mg PO BID PRN Hold Instructions: Home Medication placed on hold at Doctor's office Rx Instructions: noon and nighttime metoprolol succinate 25 mg tablet extended release 24 hr 12.5 mg PO DAILY Qty: 45 3RF Mucinex 1,200 mg tablet extended release 12hr 1,200 mg PO Q12H PRN (Reason: cold symptoms) Qty: 30 1RF aspirin 81 MG tablet,delayed release (DR/EC) 81 mg PO DAILY (DME) Aerochamber Plus Flow-Vu,S Msk 1 EACH spacer 1 ea Miscellaneous PRN polyethylene glycol 3350 [GlycoLax] 527 GM powder 17 g PO DAILY (DME) lancets [OneTouch Delica Lancets] 1 EACH misc 1 ea Miscellaneous DAILY Qty: 100 Rx Instructions: E11.9 to maintain A1C less than 7.0 albuterol sulfate [ProAir HFA] 8.5 GM HFA aerosol inhaler 1 - 2 puff Inhalation Q4-6H PRN Qty: 1 3RF Rx Instructions: DISPENSE ALBUTEROL INHALER BRAND COVERED BY INSURANCE cholecalciferol (vitamin D3) 25 mcg (1,000 unit) tablet 1,000 unit PO BID benzonatate 100 mg capsule 100 mg PO TID PRN (Reason: cough) Qty: 90 3RF (DME) Blood Glucose Test Strip See Rx Instructions .ROUTE .MEDSUPPLY Qty: 100 3RF Rx Instructions: As directed to check daily morning fasting blood glucose. No insulin. Dispense covered brand. atorvastatin 80 mg tablet 80 mg PO DAILY Qty: 90 3RF albuterol sulfate 2.5 mg/0.5 mL solution for nebulization 2.5 mg Inhalation Q4-6H PRN Qty: 60 3RF fluticasone furoate-vilanterol [Breo Ellipta] 100-25 mcg/dose blister with device 1 ea Inhalation DAILY Qty: 60 12RF Rx Instructions: [facility] Incruse Ellipta 62.5 mcg/actuation blister with device 62.5 mcg Inhalation DAILY Qty: 30 12RF losartan 25 mg tablet 12.5 mg PO DAILY Qty: 45 3RF (DME) nebulizer and accessories See Rx Instructions .Route .MEDSUPPLY Qty: 1 0RF Rx Instructions: As directed clotrimazole [Lotrimin AF (clotrimazole)] 1 % cream 1 applic TP BID Qty: 45 3RF Rx Instructions: Apply thin film to affected area until resolution (usually 4 weeks) + 3-4 days pantoprazole 20 mg tablet,delayed release (DR/EC) 20 mg PO DAILY Qty: 90 3RF Rx Instructions: Take 20 mg daily once daily in the morning at least 30-60 minutes before first meal of the day primidone 50 mg tablet 150 mg PO QHS MDD 150mg/24h Qty: 270 3RF Rx Instructions: Dose increase 01/21/22--essential tremor No Action cyclobenzaprine 10 mg tablet 10 mg PO TID PRNQty: 20 0RF Discharge Instructions Instructions: Knee Pain (ED) Additional Instructions: There is no indication of infection at this time. This is likely flare of arthritis. I am hoping that the steroids injected will be able to give you some long-lasting relief from your discomfort. Please encourage rest, ice, elevation. You may continue to alternate between Tylenol and ibuprofen as needed for discomfort. If you develop fever/chills, swelling, redness, warmth or the new/worsening symptom please seek care urgently once again. Otherwise, please keep your upcoming appointment with Dr. Linn. Referrals: Sangita Rose NP [Primary Care Provider] - Discharge Data Discharge Date/Time-TO BE ENTERED AT DEPARTURE: 07/17/22 15:24 Medical Decision Making Patient is a pleasant 81-year-old male presenting today with chief complaint of right knee pain. He reports that he has chronic arthritis in the right knee. Has had a few joint injections and most recent of which was June 18. He states that that alleviated his discomfort for about 2 weeks and then the pain began to increase once again. States that it became warm and swollen. Patient was seen by primary care and ultrasound was obtained to rule out DVT. This was found to be negative. Patient is currently on prednisone and he states that this does help with the swelling but that the pain has progressively increased. He denies any fevers or chills. Pain is now limiting his ability to get any sleep and perform his activities of daily living. He has been alternating between Tylenol and ibuprofen to help with pain without significant relief. On exam, patient appears uncomfortable. He is ambulating with an antalgic gait. He is 2+ distal pulses, intact sensation. Patient is hemodynamically stable and afebrile. She has no joint effusion, no erythema or warmth. However, he is quite point tender along the lateral aspect of the knee. Full extension, flexion limited to approximately 110 degrees. Ligamentously intact. Patient denies any recent trauma. Patient is also point tenderness over the greater trochanter but he feels that the pain seems to radiate more from the knee upward towards the hip rather than vice versa. Concerned about potential infection although his exam is not significantly supportive of this. Its more likely given his recent have the injection. I do feel that touching base with Dr. Linn would be appropriately and I will reach out to him. This may also be acute exacerbation of known OA. Reviewed recent notes from PCP and US. Alternatively, this may actually be hip involvement and patient may benefit from injection in the trochanteric bursa. Consulted Dr. Linn. He is primarily concern for CPPD. He reviewed the patient's chart and advised that the injection has been most recently completed in April. He recommended aspirating and sending for culture and analysis. However, based on physical exam he is more concerned with this being potential CPPD rather than infectious etiology. He advised injecting with Depo-Medrol 80 mg after aspiration. Patient and I discussed risks/benefits as well as expected procedural steps and alternatives. He voices understanding and wishes to proceed. Please see procedure note. This was completed using standard, sterile technique. Patient toelrataed this well. Fluid obtained, appears yellow/clear. No signficant cloudiness. He reports feeling improved. Labs without evidence o infection. Discussed with patient. Encouarged ROM. Encouraged supportive care. Strict return precautions discussed. Encoruaged close f/u with orhtopedic. All of his quesitons and concerns were addressed, he is in agreement with this plan. HPI General Date/Time Provider Initiated Documentation: 07/17/22 10:59. Limitations to Documentation: no limitations. Information obtained by: patient, RN notes reviewed and old records reviewed. History of Present Illness 81 year old M presents to the emergency department with the chief complaint of right knee pain, described as severe, with intensity rated at 7. Quality is described as aching, and is localized to the right and lower extremity. Patient reports no radiation. Patient started experiencing this week(s) (acute on chronic issue, signficantly worsening in recent weeks) and it has been constant. Immobilization improves symptom(s), Movement worsens symptoms . Patient notes no other symptoms.. Patient did receive the following treatments prior to arrival, NSAID Related Data Home Medications Medication Instructions Recorded Confirmed aspirin 81 mg tablet,delayed 81 mg PO DAILY 09/28/12 07/23/22 release inhalational spacing device 09/28/12 07/23/22 (Aerochamber Plus Flow-Vu,Small Mask) lancets 33 gauge (OneTouch Delica #100 ea 10/13/16 07/23/22 Lancets) polyethylene glycol 3350 17 17 g PO DAILY 10/13/16 07/23/22 gram/dose oral powder (GlycoLax) albuterol sulfate 90 mcg/actuation 1 - 2 puff inhalation Q4-6H PRN ##1 04/18/17 07/23/22 aerosol inhaler (ProAir HFA) magnesium oxide 500 mg capsule 500 mg PO DAILY #90 tab-caps 11/02/18 07/23/22 cholecalciferol (vitamin D3) 25 1,000 unit PO BID 11/01/19 07/23/22 mcg (1,000 unit) tablet benzonatate 100 mg capsule 100 mg PO TID PRN cough #90 11/08/19 07/23/22 tab-caps ibuprofen 200 mg tablet 400 mg PO BID PRN 06/15/21 07/23/22 acetaminophen 500 mg tablet 1,000 mg PO TID PRN 07/15/21 07/23/22 blood sugar diagnostic (Blood #100 ea 09/09/21 07/23/22 Glucose Test strips) atorvastatin 80 mg tablet 80 mg PO DAILY #90 tabs 10/14/21 07/23/22 acetylcysteine 600 mg capsule (NAC) 600 mg PO BID #60 caps 10/20/21 07/23/22 albuterol sulfate 2.5 mg/0.5 mL 2.5 mg (0.5 mL) inhalation Q4-6H 01/07/22 07/23/22 solution for nebulization PRN #60 vials fluticasone furoate 100 1 ea inhalation DAILY #60 ea 01/29/22 07/23/22 mcg-vilanterol 25 mcg/dose inhalation powder (Breo Ellipta) umeclidinium 62.5 mcg/actuation 62.5 mcg inhalation DAILY #30 ea 01/29/22 07/23/22 blister powder for inhalation (Incruse Ellipta) losartan 25 mg tablet 12.5 mg PO DAILY high blood 02/22/22 07/23/22 pressure #45 tab-caps metoprolol succinate 25 mg 12.5 mg PO DAILY #45 tab-caps 04/07/22 07/23/22 tablet,extended release 24 hr nebulizer and accessories #1 ea 04/16/22 07/23/22 clotrimazole 1 % topical cream 1 applic topical BID tinea #45 06/02/22 07/23/22 (Lotrimin AF (clotrimazole)) grams guaifenesin 1,200 mg tablet, 1,200 mg PO Q12H PRN cold symptoms 06/02/22 07/23/22 extended release 12 hr (Mucinex) #30 tabs pantoprazole 20 mg tablet,delayed 20 mg PO DAILY #90 tab-caps 06/21/22 07/23/22 release primidone 50 mg tablet 150 mg PO QHS #270 tabs 07/15/22 07/23/22 cyclobenzaprine 10 mg tablet 10 mg PO TID PRN #20 tabs 07/21/22 07/23/22 Previous Rx's Medication Instructions Recorded albuterol sulfate 90 mcg/actuation 1 - 2 puff inhalation Q4-6H PRN ##1 04/18/17 aerosol inhaler (ProAir HFA) magnesium oxide 500 mg capsule 500 mg PO DAILY #90 tab-caps 11/02/18 benzonatate 100 mg capsule 100 mg PO TID PRN cough #90 11/08/19 tab-caps blood sugar diagnostic (Blood #100 ea 09/09/21 Glucose Test strips) atorvastatin 80 mg tablet 80 mg PO DAILY #90 tabs 10/14/21 acetylcysteine 600 mg capsule (NAC) 600 mg PO BID #60 caps 10/20/21 albuterol sulfate 2.5 mg/0.5 mL 2.5 mg (0.5 mL) inhalation Q4-6H 01/07/22 solution for nebulization PRN #60 vials fluticasone furoate 100 1 ea inhalation DAILY #60 ea 01/29/22 mcg-vilanterol 25 mcg/dose inhalation powder (Breo Ellipta) umeclidinium 62.5 mcg/actuation 62.5 mcg inhalation DAILY #30 ea 01/29/22 blister powder for inhalation (Incruse Ellipta) losartan 25 mg tablet 12.5 mg PO DAILY high blood 02/22/22 pressure #45 tab-caps metoprolol succinate 25 mg 12.5 mg PO DAILY #45 tab-caps 04/07/22 tablet,extended release 24 hr nebulizer and accessories #1 ea 04/16/22 clotrimazole 1 % topical cream 1 applic topical BID tinea #45 06/02/22 (Lotrimin AF (clotrimazole)) grams guaifenesin 1,200 mg tablet, 1,200 mg PO Q12H PRN cold symptoms 06/02/22 extended release 12 hr (Mucinex) #30 tabs pantoprazole 20 mg tablet,delayed 20 mg PO DAILY #90 tab-caps 06/21/22 release primidone 50 mg tablet 150 mg PO QHS #270 tabs 07/15/22 cyclobenzaprine 10 mg tablet 10 mg PO TID PRN #20 tabs 07/21/22 Allergies Allergy/AdvReac Type Severity Reaction Status Date / Time codeine AdvReac Unknown Verified 07/23/22 08:58 General Stated Complaint: Orthopedic YUE: 4 Review of Systems Constitutional Constitutional: Reports as per HPI, Denies chills, Denies fever(s) and Denies weakness Cardiovascular Cardiovascular: Reports as per HPI Respiratory Respiratory: Reports as per HPI and Denies cough Musculoskeletal Musculoskeletal: Reports as per HPI and Denies tingling Integumentary/Breasts Skin/Breast: Reports as per HPI, Denies rash and Denies wounds Neurologic Neurologic: Reports as per HPI, Denies tingling, Denies paresthesias and Denies weakness PFSH All Active Problems Acute pain of right knee (Acute) Back pain (Acute) Hip pain, right (Acute) Effusion, right knee (Acute) Arthritis of right glenohumeral joint (Acute) Degenerative joint disease of right knee (Acute) Depo-Medrol injection: 05/07/2022 Bronchiectasis (Acute) Adrenal nodule (Acute) Rib pain on left side (Acute) Trochanteric bursitis of both hips (Chronic) Non-alcoholic fatty liver disease (Chronic 09/29/12) Type 2 diabetes mellitus (Chronic) Dx: 10/2018 Obesity (BMI 30-39.9) (Chronic) Advance directive in chart (Chronic 04/22/15) On-file with [facility] as of 04/22/2015 Sensorineural hearing loss, bilateral (Chronic 08/29/17) Osteoarthritis of knee (Chronic 08/13/13) Hypomagnesemia (Chronic 10/07/17) Hyperlipidemia, unspecified (Chronic 07/09/11) LDL GOAL 100 Gastroesophageal reflux disease (Chronic 07/09/11) Essential tremor (Chronic 07/27/11) Essential hypertension (Chronic 07/09/11) GOAL <130/80 Depression (Chronic 06/04/14) Long-term Celexa Rx Chronic obstructive pulmonary disease (COPD) (Chronic 09/29/12) MILD, 08/2012 PFTs FEV1 2.06 (70% pred and FVC), no response to bronchodilator; 11/17/15 bronchoscopy [facility]: NEG for [employer], fungus, & bacteria; cytology NEG for malignancy Cardiomyopathy (Chronic 04/10/12) BPH (benign prostatic hyperplasia) (Chronic 04/10/12) ASCVD (arteriosclerotic cardiovascular disease) (Chronic) S/p 5 vessel CABG 1995 Echo 09/27/2014 with normal LVEF Medical History Cataract 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 Essential tremor Heart disease Hypertension Sister Hypertensive disorder, systemic arterial Heart disease Brother , PR at age 78. Heart disease Essential tremor Brother Heart disease Daughter Essential tremor Social History Smoking/Tobacco Use Status: Former Tobacco Use Tobacco: How many years used: 30 Smoking risk assessment performed?: Yes Alcohol Intake: never Drug use: Never Substance use type: does not use Adopted: No Caregiver/Support person: No Foster care: No Household members: spouse Housing: house Number of Children: 7 number of grandchildren: 25 Communication Needs: Hard of Hearing Education Level: high school Do you need help understanding health information?: Rarely current occupation: Retired [employer] Pets and animals: Yes Pets and animals: dog(s) Sexually active: No Do you think of yourself as: straight/heterosexual Current gender identity: male What is your relationship status?: How often do you talk on the phone with friends or family?: three or more times per week How often do you get together with friends or relatives?: once per week Do you belong to any clubs or organized social groups?: yes Panel score (0-1 are the most socially isolated patients): 3 What type of physical activity do you participate in: walking and other Details: House work Duration: 15-30 minutes/day Frequency: 5-6 times per week Lindy/Hindu: Sikh Seatbelt use: always 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 Exam Const General: cooperative, healthy appearing, uncomfortable, no acute distress, well developed and well groomed Nutritional Appearance: average body habitus and well nourished Orientation: alert and awake Resp Effort & Inspection: normal respiratory effort, able to speak in complete sentences and no respiratory distress Cardio Rate: regular rate Rhythm: regular rhythm Skin General skin exam: no rashes or lesions noted Lesions: no lesions Rashes: no rashes Trauma: no lacerations or abrasions Neuro General: patient alert and patient awake Cognition: normal cognition Speech: speech normal Gait: normal gait Motor: muscle tone normal throughout Sensory Exam: no sensory deficits noted Extrem Right lower extremity: normal capillary refill, no joint enlargement, hip/thigh Details: normal to inspection, tenderness Location: of the hip Location: over the greater trochanter and normal ROM; no swelling, no ecchymosis, no crepitus and no unusual warmth, knee Details: tenderness Location: of the lateral joint line and knee ligament exam normal; no swelling, ROM abnormal (full extension, limited flexion), no lacerations, no ecchymosis, no crepitus, no deformity and no unusual warmth, lower leg Details: normal to inspection and no edema; no tenderness, no localized swelling, no pitting edema, no non-pitting edema and no unusual warmth, ankle Details: normal to inspection and normal ROM; no tenderness and no swelling and foot Details: normal capillary refill and vascular exam Details: dorsalis pedis pulse present and posterior tibial pulse present; ROM limited and no edema Psych Appearance: grossly normal and well kempt Mental Status: mental status grossly normal Speech and Movement: speech and movement normal Course Vital Signs Vital signs: Vital Signs Temperature 37.0 C 07/17/22 11:08 Pulse 69 07/17/22 11:08 Respiratory Rate 18 07/17/22 11:08 Blood Pressure 161/68 H 07/17/22 11:08 Pulse Oximetry 97 07/17/22 11:08 Temperature 37.0 C 07/17/22 11:08 Temperature Source Temporal Artery Scan 07/17/22 11:08 Pulse 69 07/17/22 11:08 Respiratory Rate 18 07/17/22 11:08 Blood Pressure 161/68 H 07/17/22 11:08 Blood Pressure Position Sitting 07/17/22 11:08 Pulse Oximetry 97 07/17/22 11:08 Oxygen Delivery Method Room Air 07/17/22 11:08 Oxygen Flow Rate 0 07/17/22 11:08 Pain Level 7 07/17/22 11:08 Procedures Joint Aspiration/Injection Joint Asp./Inject. 1: Time Out Performed: Yes Side of body: right Joint Aspirated: knee Ultrasound Guidance: No Skin Prep: Chlorhexidene Needle Size Used: 20G Fluid Obtained: clear Total fluid obtained (mL): 5 Medication Injected, if any: Lidocaine Amount of Medication Injected (mls): 5 Patient Tolerated Procedure: well and no complications
[2022-07-17] MEDS: Ibuprofen 600 MG TAB (14:18)
[2022-07-17] MEDS: Acetaminophen 500 MG TAB (14:18)
[2022-07-17] MEDS: Lidocaine 1% Pres-Free 5 ML VIAL (14:18)
[2022-07-17] MEDS: methylPREDNISolone ACETATE 80 MG/ML VIAL IJ (14:19)
[2022-07-17 14:34] VITALS: BP 170/90; PULSE 77; RESP 19; TEMP 36.9; O2SAT 94
[2022-07-17 14:37] LABS: Crystals (BF) No Crystals seen
[2022-07-17 14:38] LABS: Clarity Clear; Nucleated Cells 131 uL (0)
[2022-07-17 14:49] LABS: Mononuclear Cells 84 %
[2022-07-17 14:50] LABS: Polynuclear Cells 16 %
--- NOTE | 2022-07-24 10:09 | NUR.NOTE ---
Nursing Note: Accessed chart to look up whether or not on antibiotic.
== END 2022-07-17 15:24 | disposition home or self-care (01) ==
PROVIDERS: Emergency Provider Physician Assistant; PCP Nurse Practitioner Family
DX: M25.561 Pain in right knee (principal); M17.11 Unilateral primary osteoarthritis, right knee; M25.461 Effusion, right knee
CPT/HCPCS: 20610; 99284; 87070; 87075; 87205; 89051; 89060; J1040

== ENCOUNTER 2022-07-21 01:16 | Emergency (ER) | payer MEDICARE, SELFPAY ==
[2022-07-21 01:22] VITALS: BP 196/101; PULSE 71; RESP 22; TEMP 36.8; O2SAT 98
--- NOTE | 2022-07-21 01:30 | DI.CT_ITS ---
Exam(s) CT LUMBAR SPINE WO EXAM: CT LUMBAR SPINE WO CLINICAL HISTORY: lower back pain radiating down leg. TECHNIQUE: Imaging Protocol: Axial computed tomography images with coronal and sagittal reformatted images were created and reviewed COMPARISON: CT CT ABDOMEN PELVIS W from 07/25/2021 FINDINGS: Bones: The last intervertebral disc space is designated the L5/S1 level for the numbering purpose of this examination. Stable moderate compression fracture T11. The remaining vertebral body heights are well maintained. Alignment is satisfactory. No fracture is seen. T12-L1: Severe disc space narrowing. Endplate osteophytes. L1-2: Severe degenerative disc changes with obliteration of the disc space greater on the right. Prom inent endplate osteophytes greater on the right with endplate sclerosis. L2-3: Moderate disc space narrowing. Disc bulging and small endplate osteophytes. L3-4: Asymmetric narrowing of the disc on the right side of prominent endplate osteophytes and scler osis. Diffuse disc bulging. Severe central canal stenosis. L4-5: Mild loss of disc height. Concentric disc bulging. Facet degenerative changes cause mild spo ndylolisthesis. Severe central canal stenosis. L5-S1: Mild loss of disc height and mild disc bulging. The visualized SI joints and sacrum are will maintained. Visualized portions of the abdomen and pelvis: Nonobstructing right renal calculi. Small right renal cysts. Atherosclerotic changes of the aorta without evidence of aneurysm. Soft Tissues: The paraspinal soft tissues are unremarkable. IMPRESSION: Stable T11 compression fracture. Stable appearance of degenerative disc changes and facet degenerati ve changes causing neural foraminal narrowing at multiple levels. Severe central canal stenosis at L 3-4 and L4-5. RADIATION DOSE DELIVERED: 821.11mGy.cm Total DLP DATA REPOSITORY: All CT scans at this facility are submitted to the National Radiology Data Registry (NRDR) Dose Index Registry (DIR) with the [employer] (ACR). RADIATION OPTIMIZATION: All CT scans at this facility use at least one of these dose optimization te chniques: automated exposure control; mA and/or kV adjustment per patient size (includes targeted exa ms where dose is matched to clinical indication); or iterative reconstruction.
--- NOTE | 2022-07-21 01:30 | DI.RAD_ITS ---
Exam(s) XR PELVIS AP XR FEMUR RT EXAM: XR PELVIS AP CLINICAL HISTORY: pain. TECHNIQUE: 2D digital imaging was performed. COMPARISON: CR from 11/22/2016 CR,XR XR FEMUR RT from 07/21/2022 FINDINGS: BONES: No acute fracture is present. No bony destructive lesion is seen. JOINTS: No dislocation present. Mild degenerative changes are seen at the hips and knees as well as S I joints. More advanced degenerative changes are noted in the lower lumbar spine. SOFT TISSUE: Vascular calcifications and surgical clips. IMPRESSION: No acute abnormality. DATA REPOSITORY: RADIATION DOSE DELIVERED:
--- NOTE | 2022-07-21 01:39 | ED.GENADUL_ITS ---
Discharge Plan Disposition Patient Disposition: Home Condition: Stable Discharge Details Clinical Impression: Back pain, Hip pain, right Primary Care Provider: Sangita Rose ED Provider: Gonzales Khan Home Meds and New Rx's Prescriptions: New cyclobenzaprine 10 mg tablet 10 mg PO TID PRNQty: 20 0RF prednisone 20 mg tablet 60 mg PO DAILY 4 Days Qty: 12 0RF Continued magnesium oxide 500 mg capsule 500 mg PO DAILY Qty: 90 3RF acetaminophen 500 mg tablet 1,000 mg PO TID PRN acetylcysteine [NAC] 600 mg capsule 600 mg PO BID Qty: 60 7RF ibuprofen 200 mg tablet 400 mg PO BID PRN Hold Instructions: Home Medication placed on hold at Doctor's office Rx Instructions: noon and nighttime metoprolol succinate 25 mg tablet extended release 24 hr 12.5 mg PO DAILY Qty: 45 3RF Mucinex 1,200 mg tablet extended release 12hr 1,200 mg PO Q12H PRN (Reason: cold symptoms) Qty: 30 1RF aspirin 81 MG tablet,delayed release (DR/EC) 81 mg PO DAILY (DME) Aerochamber Plus Flow-Vu,S Msk 1 EACH spacer 1 ea Miscellaneous PRN polyethylene glycol 3350 [GlycoLax] 527 GM powder 17 g PO DAILY (DME) lancets [OneTouch Delica Lancets] 1 EACH misc 1 ea Miscellaneous DAILY Qty: 100 Rx Instructions: E11.9 to maintain A1C less than 7.0 albuterol sulfate [ProAir HFA] 8.5 GM HFA aerosol inhaler 1 - 2 puff Inhalation Q4-6H PRN Qty: 1 3RF Rx Instructions: DISPENSE ALBUTEROL INHALER BRAND COVERED BY INSURANCE cholecalciferol (vitamin D3) 25 mcg (1,000 unit) tablet 1,000 unit PO BID benzonatate 100 mg capsule 100 mg PO TID PRN (Reason: cough) Qty: 90 3RF (DME) Blood Glucose Test Strip See Rx Instructions .ROUTE .MEDSUPPLY Qty: 100 3RF Rx Instructions: As directed to check daily morning fasting blood glucose. No insulin. Dispense covered brand. atorvastatin 80 mg tablet 80 mg PO DAILY Qty: 90 3RF albuterol sulfate 2.5 mg/0.5 mL solution for nebulization 2.5 mg Inhalation Q4-6H PRN Qty: 60 3RF fluticasone furoate-vilanterol [Breo Ellipta] 100-25 mcg/dose blister with device 1 ea Inhalation DAILY Qty: 60 12RF Rx Instructions: [facility] Incruse Ellipta 62.5 mcg/actuation blister with device 62.5 mcg Inhalation DAILY Qty: 30 12RF losartan 25 mg tablet 12.5 mg PO DAILY Qty: 45 3RF (DME) nebulizer and accessories See Rx Instructions .Route .MEDSUPPLY Qty: 1 0RF Rx Instructions: As directed clotrimazole [Lotrimin AF (clotrimazole)] 1 % cream 1 applic TP BID Qty: 45 3RF Rx Instructions: Apply thin film to affected area until resolution (usually 4 weeks) + 3-4 days pantoprazole 20 mg tablet,delayed release (DR/EC) 20 mg PO DAILY Qty: 90 3RF Rx Instructions: Take 20 mg daily once daily in the morning at least 30-60 minutes before first meal of the day primidone 50 mg tablet 150 mg PO QHS MDD 150mg/24h Qty: 270 3RF Rx Instructions: Dose increase 01/21/22--essential tremor Discharge Instructions Instructions: Back Pain (ED) Additional Instructions: follow up with your primary care provider as soon as possible if you feel more ill, have severe worsening pain, fevers or difficulty urinating return to the emergency department Medical Decision Making 81 yo male with hx of cad, copd, htn, gerd, hld, prior episodes of bursitis of both knees who comes in with right leg pain. He had been having pain in his right knee, seen on 07/17 in the ED and had arthrocentesis and injection of steroids and he states his knee was feeling better after this. Cultures from the tap still no growth. He states tonight around 5pm he started to have pain in his right hip going down his leg. Denies falls, trauma, fevers, chills. He rica abdominal pain. He arrives stable speaking clearly caox4. He localizes the pain to the lateral thigh on the right, and also right lower back. HAs no visible or palpable deformities, no swelling of the leg or knee, no pain or tenderness in the knee and intact distal sensation and pulses, no saddle anesthesia, no abdominal tenderness. Suspect this could be bursitis or possible sciatica, will obtain xray and lumbar spine imaging though unlikley to be fracture. Has no findings on history or exam to suggest cauda equina or spinal epidural abscess. pt's imaging unremarkable for acute findings though he does have spincal canal stenosis and degenerative changes of his spine, he states pain is better after toradol and a dose of flexeril and is fully awake and alert. Still no saddle anesthia or other concerning findings on exam. Will trial short course of steroids, advised to f/u with his pcp and return precautions given Differential Diagnosis Differential Diagnosis: muscle spasm, sciatica, fracture Medical Records Medical records reviewed: Yes I reviewed the patient's medical records. Imaging Data Radiologic Study: Attestation: I personally reviewed and interpreted this imaging study as follows: Imaging: X-Ray Radiologist's impression: no acute findings hip xray Radiologic Study #2: Attestation: I personally reviewed and interpreted this imaging study as follows: Imaging: X-Ray Radiologist's impression: no acute findings femur Radiologic Study #3: Attestation: I personally reviewed and interpreted this imaging study as follows: Imaging: CT Scan Radiologist's impression: IMPRESSION: 1. No acute fracture. 2. Moderate-severe multilevel degenerative changes.3. Severe spinal canal stenosis L3-L4 and L4-L5 HPI General Mode of arrival: ambulatory . Date/Time Provider Initiated Documentation: 07/21/22 01:16 . Limitations to Documentation: no limitations . Information obtained by: patient . History of Present Illness 81 year old M presents to the emergency department with the chief complaint of right leg pain, described as moderate, Quality is described as aching, and is localized to the right and lower extremity. Patient started experiencing this hour(s) (6) and it has been constant. No relieving factors improve symptom(s), No exacerbating factors reported . Patient notes no other symptoms.. Patient did receive the following treatments prior to arrival, none Related Data Home Medications Medication Instructions Recorded Confirmed aspirin 81 mg tablet,delayed 81 mg PO DAILY 09/28/12 07/15/22 release inhalational spacing device 09/28/12 07/15/22 (Aerochamber Plus Flow-Vu,Small Mask) lancets 33 gauge (MoneyMail #100 ea 10/13/16 07/15/22 Lancets) polyethylene glycol 3350 17 17 g PO DAILY 10/13/16 07/15/22 gram/dose oral powder (GlycoLax) albuterol sulfate 90 mcg/actuation 1 - 2 puff inhalation Q4-6H PRN ##1 04/18/17 07/15/22 aerosol inhaler (ProAir HFA) magnesium oxide 500 mg capsule 500 mg PO DAILY #90 tab-caps 11/02/18 07/15/22 cholecalciferol (vitamin D3) 25 1,000 unit PO BID 11/01/19 07/15/22 mcg (1,000 unit) tablet benzonatate 100 mg capsule 100 mg PO TID PRN cough #90 11/08/19 07/15/22 tab-caps ibuprofen 200 mg tablet 400 mg PO BID PRN 06/15/21 07/15/22 acetaminophen 500 mg tablet 1,000 mg PO TID PRN 07/15/21 07/15/22 blood sugar diagnostic (Blood #100 ea 09/09/21 07/15/22 Glucose Test strips) atorvastatin 80 mg tablet 80 mg PO DAILY #90 tabs 10/14/21 07/15/22 acetylcysteine 600 mg capsule (NAC) 600 mg PO BID #60 caps 10/20/21 07/15/22 albuterol sulfate 2.5 mg/0.5 mL 2.5 mg (0.5 mL) inhalation Q4-6H 01/07/22 07/15/22 solution for nebulization PRN #60 vials fluticasone furoate 100 1 ea inhalation DAILY #60 ea 01/29/22 07/15/22 mcg-vilanterol 25 mcg/dose inhalation powder (Breo Ellipta) umeclidinium 62.5 mcg/actuation 62.5 mcg inhalation DAILY #30 ea 01/29/22 07/15/22 blister powder for inhalation (Incruse Ellipta) losartan 25 mg tablet 12.5 mg PO DAILY high blood 02/22/22 07/15/22 pressure #45 tab-caps metoprolol succinate 25 mg 12.5 mg PO DAILY #45 tab-caps 04/07/22 07/15/22 tablet,extended release 24 hr nebulizer and accessories #1 ea 04/16/22 07/15/22 clotrimazole 1 % topical cream 1 applic topical BID tinea #45 06/02/22 07/15/22 (Lotrimin AF (clotrimazole)) grams guaifenesin 1,200 mg tablet, 1,200 mg PO Q12H PRN cold symptoms 06/02/22 extended release 12 hr (Mucinex) #30 tabs pantoprazole 20 mg tablet,delayed 20 mg PO DAILY #90 tab-caps 06/21/22 07/15/22 release primidone 50 mg tablet 150 mg PO QHS #270 tabs 07/15/22 cyclobenzaprine 10 mg tablet 10 mg PO TID PRN #20 tabs 07/21/22 prednisone 20 mg tablet 60 mg PO DAILY 4 days #12 tabs 07/21/22 Previous Rx's Medication Instructions Recorded albuterol sulfate 90 mcg/actuation 1 - 2 puff inhalation Q4-6H PRN ##1 04/18/17 aerosol inhaler (ProAir HFA) magnesium oxide 500 mg capsule 500 mg PO DAILY #90 tab-caps 11/02/18 benzonatate 100 mg capsule 100 mg PO TID PRN cough #90 11/08/19 tab-caps blood sugar diagnostic (Blood #100 ea 09/09/21 Glucose Test strips) atorvastatin 80 mg tablet 80 mg PO DAILY #90 tabs 10/14/21 acetylcysteine 600 mg capsule (NAC) 600 mg PO BID #60 caps 10/20/21 albuterol sulfate 2.5 mg/0.5 mL 2.5 mg (0.5 mL) inhalation Q4-6H 01/07/22 solution for nebulization PRN #60 vials fluticasone furoate 100 1 ea inhalation DAILY #60 ea 01/29/22 mcg-vilanterol 25 mcg/dose inhalation powder (Breo Ellipta) umeclidinium 62.5 mcg/actuation 62.5 mcg inhalation DAILY #30 ea 01/29/22 blister powder for inhalation (Incruse Ellipta) losartan 25 mg tablet 12.5 mg PO DAILY high blood 02/22/22 pressure #45 tab-caps metoprolol succinate 25 mg 12.5 mg PO DAILY #45 tab-caps 04/07/22 tablet,extended release 24 hr nebulizer and accessories #1 ea 04/16/22 clotrimazole 1 % topical cream 1 applic topical BID tinea #45 06/02/22 (Lotrimin AF (clotrimazole)) grams guaifenesin 1,200 mg tablet, 1,200 mg PO Q12H PRN cold symptoms 06/02/22 extended release 12 hr (Mucinex) #30 tabs pantoprazole 20 mg tablet,delayed 20 mg PO DAILY #90 tab-caps 06/21/22 release primidone 50 mg tablet 150 mg PO QHS #270 tabs 07/15/22 cyclobenzaprine 10 mg tablet 10 mg PO TID PRN #20 tabs 07/21/22 prednisone 20 mg tablet 60 mg PO DAILY 4 days #12 tabs 07/21/22 Allergies Allergy/AdvReac Type Severity Reaction Status Date / Time codeine AdvReac Unknown Verified 07/15/22 13:16 General Stated Complaint: Orthopedic YUE: 4 Review of Systems All systems reviewed & are unremarkable except as noted in HPI and below Constitutional Constitutional: Denies chills, Denies fever(s) and Denies weakness Cardiovascular Cardiovascular: Denies chest pain and Denies dyspnea Respiratory Respiratory: Denies cough and Denies dyspnea Gastrointestinal Gastrointestinal: Denies abdominal pain, Denies nausea and Denies vomiting Musculoskeletal Musculoskeletal: Denies joint swelling Integumentary/Breasts Skin/Breast: Denies rash Neurologic Neurologic: Denies weakness PFSH All Active Problems (Updated 07/21/22 @ 04:55 by Gonzales Khan MD) Acute pain of right knee (Acute) Back pain (Acute) Hip pain, right (Acute) Effusion, right knee (Acute) Arthritis of right glenohumeral joint (Acute) Degenerative joint disease of right knee (Acute) Depo-Medrol injection: 05/07/2022 Bronchiectasis (Acute) Adrenal nodule (Acute) Rib pain on left side (Acute) Trochanteric bursitis of both hips (Chronic) Non-alcoholic fatty liver disease (Chronic 09/29/12) Type 2 diabetes mellitus (Chronic) Dx: 10/2018 Obesity (BMI 30-39.9) (Chronic) Advance directive in chart (Chronic 04/22/15) On-file with [facility] as of 04/22/2015 Sensorineural hearing loss, bilateral (Chronic 08/29/17) Osteoarthritis of knee (Chronic 08/13/13) Hypomagnesemia (Chronic 10/07/17) Hyperlipidemia, unspecified (Chronic 07/09/11) LDL GOAL 100 Gastroesophageal reflux disease (Chronic 07/09/11) Essential tremor (Chronic 07/27/11) Essential hypertension (Chronic 07/09/11) GOAL <130/80 Depression (Chronic 06/04/14) Long-term Celexa Rx Chronic obstructive pulmonary disease (COPD) (Chronic 09/29/12) MILD, 08/2012 PFTs FEV1 2.06 (70% pred and FVC), no response to bronchodilator; 11/17/15 bronchoscopy [facility]: NEG for [employer], fungus, & bacteria; cytology NEG for malignancy Cardiomyopathy (Chronic 04/10/12) BPH (benign prostatic hyperplasia) (Chronic 04/10/12) ASCVD (arteriosclerotic cardiovascular disease) (Chronic) S/p 5 vessel CABG 1995 Echo 09/27/2014 with normal LVEF Medical History Cataract 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 Essential tremor Heart disease Hypertension Sister Hypertensive disorder, systemic arterial Heart disease Brother , MT at age 78. Heart disease Essential tremor Brother Heart disease Daughter Essential tremor Social History Smoking/Tobacco Use Status: Former Tobacco Use Tobacco: How many years used: 30 Smoking risk assessment performed?: Yes Alcohol Intake: never Drug use: Never Substance use type: does not use Adopted: No Caregiver/Support person: No Foster care: No Household members: spouse Housing: house Number of Children: 7 number of grandchildren: 25 Communication Needs: Hard of Hearing Education Level: high school Do you need help understanding health information?: Rarely current occupation: Ret[employer] Pets and animals: Yes Pets and animals: dog(s) Sexually active: No Do you think of yourself as: straight/heterosexual Current gender identity: male What is your relationship status?: How often do you talk on the phone with friends or family?: three or more times per week How often do you get together with friends or relatives?: once per week Do you belong to any clubs or organized social groups?: yes Panel score (0-1 are the most socially isolated patients): 3 What type of physical activity do you participate in: walking and other Details: House work Duration: 15-30 minutes/day Frequency: 5-6 times per week Lindy/Zoroastrianism: Amish Seatbelt use: always Drive intox or ride w/intox escort vehicle driver: No Water heater temp set <120 deg: Yes Working smoke detector in home: Yes Fire extinguisher in home: Yes Carbon monox detector in home: Yes Do you feel safe at home: Yes Do you feel safe in your relationship?: Yes Additional Social history: He has 5 step-children in addition to 3 biological. Exam Const General: no acute distress Orientation: alert HENMT Head: normal to inspection Ears: external ears normal General nose exam: external nose normal Mouth: moist mucous membranes Eyes General: appearance normal, both eyes and all related structures Neck Neck: normal visual inspection Resp Effort & Inspection: normal respiratory effort and able to speak in complete sentences Cardio Rate: regular rate GI Palpation: soft and nontender Back/Spine/Pelvis Back: no CVA tenderness Skin General skin exam: no rashes or lesions noted Neuro General: patient alert and patient oriented x3 Extrem General: full ROM and capillary refill normal Psych Mental Status: mental status grossly normal Course Vital Signs Vital signs: Vital Signs Temperature 36.8 C 07/21/22 01:22 Pulse 71 07/21/22 01:22 Respiratory Rate 22 07/21/22 01:22 Blood Pressure 196/101 H 07/21/22 01:22 Pulse Oximetry 98 07/21/22 01:22 Temperature 36.8 C 07/21/22 01:22 Temperature Source Oral 07/21/22 01:22 Pulse 71 07/21/22 01:22 Respiratory Rate 22 07/21/22 01:22 Respiratory Effort 07/21/22 01:28 Blood Pressure 196/101 H 07/21/22 01:22 Pulse Oximetry 98 07/21/22 01:22 Oxygen Delivery Method Room Air 07/21/22 01:22 Oxygen Flow Rate 0 07/21/22 01:22 Pain Level 10 07/21/22 01:22
[2022-07-21] MEDS: Ketorolac 15 MG/ML VIAL IM (01:43)
[2022-07-21] MEDS: Cyclobenzaprine 10 MG TAB PO (03:35)
--- NOTE | 2022-07-21 04:34 | DI.VRAD_ITS ---
PROCEDURE INFORMATION: Exam: CT Lumbar Spine Without Contrast Exam date and time: 07/21/2022 2:09 AM Age: 81 years old Clinical indication: Low back pain and sciatica; Right; Patient HX: Lower back pain radiating down leg TECHNIQUE: Imaging protocol: Computed tomography of the lumbar spine without contrast. Radiation optimization: All CT scans at this facility use at least one of these dose optimization techniques: automated exposure control; mA and/or kV adjustment per patient size (includes targeted exams where dose is matched to clinical indication); or iterative reconstruction. COMPARISON: 1. CR XR LUMBAR SPINE COMPLETE 06/22/2021 11:[address] ABDOMEN PELVIS W 07/25/2021 10:40 AM FINDINGS: Bones/joints: Moderate compression deformity at T11 is unchanged. No new compression fractures are observed. Multilevel degenerative disc disease and facet arthropathy is noted, moderate-severe. Degenerative retrolisthesis of L1 on L2 measures 2 mm. Degenerative anterolisthesis of L4 on L5 measures 6 mm. Severe spinal canal stenosis is noted at L3-L4 and L4-L5. Neural foraminal narrowing noted at multiple levels. Kidneys and ureters: No hydronephrosis. Nonobstructive stones are noted in the right kidney, up to 4.5 mm diameter. Vasculature: Moderate vascular calcifications. Negative for abdominal aortic aneurysm. Soft tissues: Unremarkable. IMPRESSION: 1. No acute fracture. 2. Moderate-severe multilevel degenerative changes. 3. Severe spinal canal stenosis L3-L4 and L4-L5. Dictated and Authenticated by: Gonzales Sandvoal MD. Ordering:SIGRID Rolon MD
--- NOTE | 2022-07-21 04:35 | DI.VRAD_ITS ---
PROCEDURE INFORMATION: Exam: XR Right Femur Exam date and time: 07/21/2022 2:23 AM Age: 81 years old Clinical indication: Pain; Hip and thigh; Right TECHNIQUE: Imaging protocol: Radiologic exam of the Right femur. Views: 2 views. COMPARISON: US LOWER EXTREMITY VENOUS RT 07/16/2022 2:44 PM FINDINGS: Bones/joints: No acute fracture. Right femoral neck is intact. Pubic rami are intact on the right. Mild narrowing noted in the knee. Soft tissues: No abnormal soft tissue gas. Vasculature: Surgical clips are noted in the medial thigh, likely from greater saphenous venous harvest. Moderate arterial calcifications are noted. IMPRESSION: No acute osseous abnormality. If symptoms persist, follow-up imaging is advised. Dictated and Authenticated by: Gonzales Sandoval MD. Ordering:SIGRID Rolon MD
--- NOTE | 2022-07-21 04:36 | DI.VRAD_ITS ---
PROCEDURE INFORMATION: Exam: XR Right Pelvis Exam date and time: 07/21/2022 2:21 AM Age: 81 years old Clinical indication: Hip pain; Right hip TECHNIQUE: Imaging protocol: Right Radiologic exam of the pelvis. Views: 1 or 2 view. COMPARISON: CT ABDOMEN PELVIS W 07/25/2021 10:40 AM FINDINGS: Bones/joints: No evidence of fracture. Negative for dislocation. Negative for bony erosion or destructive change. Moderate degenerative changes are noted in the lumbar spine. Narrowing and osteophyte formation noted in both hips. Soft tissues: No soft tissue air. No foreign bodies. IMPRESSION: No acute osseous abnormality. If symptoms persist, follow-up imaging is advised. Dictated and Authenticated by: Gonzales Sandoval MD. Ordering:SIGRID Rolon MD
[2022-07-21 05:05] VITALS: BP 176/98; PULSE 74; RESP 21; O2SAT 99
== END 2022-07-21 05:08 | disposition home or self-care (01) ==
PROVIDERS: Emergency Provider Emergency Medicine; PCP Nurse Practitioner Family
DX: M25.551 Pain in right hip (principal); M54.9 Dorsalgia, unspecified; I10 Essential (primary) hypertension; J44.9 Chronic obstructive pulmonary disease, unspecified; I25.10 Atherosclerotic heart disease of native coronary artery without angina pectoris; Z79.82 Long term (current) use of aspirin; Z79.51 Long term (current) use of inhaled steroids
CPT/HCPCS: 73552; 96372; 99284; 72131; 72170; J1885

== ENCOUNTER → 2022-08-02 08:13 | Outpatient (BNVA) | payer MEDICARE, SELFPAY | PROVIDERS: PCP Nurse Practitioner Family; Referring Provider Nurse Practitioner Family; Visit Provider Physician Assistant | DX: M17.11 Unilateral primary osteoarthritis, right knee (principal); M47.816 Spondylosis without myelopathy or radiculopathy, lumbar region | CPT/HCPCS: 99214 ==

== ENCOUNTER 2022-08-25 03:08 | Outpatient (CLI) | payer MEDICARE, SELFPAY ==
--- NOTE | 2022-08-25 09:45 | DI.MRI_ITS ---
Exam(s) MR LUMBAR SPINE WO EXAM: MR LUMBAR SPINE WO CLINICAL HISTORY: BACK PAIN, DJD LUMBAR SPINE,SPONDYLOSIS, M47.816. TECHNIQUE: Multiplanar multisequence MRI of the Lumbar spine was performed. COMPARISON: CT CT ABDOMEN PELVIS W from 07/25/[address] LUMBAR SPINE WO from 07/21/2022 FINDINGS: Bones: The last intervertebral disc space is designated the L5/S1 level for the numbering purpose of this examination. There is an old anterior compression deformity of T11. There is mild spondylolist hesis of L4 on L5. Degenerative endplate signal changes are seen at multiple levels in the lumbar spi ne. The findings are most marked at L1-L2. Cord: The conus tip ends at the T12 level. It is of normal size and signal intensity. T12-L1: There is a mild diffuse disc bulge. No central spinal canal or neural foraminal stenosis. L1-2: No disc herniations or bulges are present. No significant central spinal canal stenosis is seen . There is mild right and moderate left neural foraminal stenosis. L2-3: There is a diffuse disc bulge. There are degenerative changes of the facets. There is very mi ld narrowing of the central spinal canal that results. There is moderate bilateral neural foraminal stenosis. L3-4: There is a diffuse disc bulge. There are hypertrophic changes of the facets and ligamentum fla vum. This results in moderate central spinal canal stenosis. There is marked right neural foraminal stenosis and [id number] left neural foraminal stenosis. L4-5: There is a diffuse disc bulge. There are hypertrophic changes of the facets and ligamentum fla vum. These all contribute to cause marked central spinal canal stenosis. Moderate bilateral neural foraminal stenosis is present. L5-S1: There is a diffuse disc bulge. There are degenerative changes of the facets noted. There is mild narrowing of the central spinal canal. No significant neural foraminal stenosis is present. Soft tissues: The visualized SI joints and sacrum are well maintained. The paraspinal soft tissues ar e unremarkable. Visualized abdominal organs: There are bilateral renal cysts again seen. IMPRESSION: 1. Multilevel degenerative changes in the lumbar spine as described above. 2. Marked central spinal canal and moderate bilateral neural foraminal stenosis at L4-L5. 3. Moderate central spinal canal, marked right and mild left neural foraminal stenosis at L3-L4. 4. Neural foraminal stenosis seen bilaterally at L2-1 2 and L2-L3. 5. Please see the above discussion for complete details. DATA REPOSITORY:
== END 2022-08-25 03:28 ==
PROVIDERS: PCP Nurse Practitioner Family; Visit Provider Student in an Organized Health Care Education/Training Program
DX: M47.816 Spondylosis without myelopathy or radiculopathy, lumbar region (principal); M48.061 Spinal stenosis, lumbar region without neurogenic claudication
CPT/HCPCS: 72148

== ENCOUNTER 2022-09-10 00:59 | Outpatient (CLI) | payer MEDICARE, SELFPAY ==
--- NOTE | 2022-09-10 07:30 | DI.DEXA_ITS ---
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 COMPARISON: MR LUMBAR SPINE WO from 08/25/2022 FINDINGS: Lateral view of the thoracic and lumbar spine shows no evidence of compression fractures. Bone mineral density measurements of the lumbar spine correspond to a total T-score of 2.5, in the n ormal range. There are osteophytes and sclerosis at the L2-3 level which could elevate the bone mine ral density measurements. Bone mineral density measurements of the left hip correspond to a total T-score of 1.3. The femoral neck T-score is 0.1, in the normal range.. The left forearm bone mineral density measurements correspond to a T-score of the distal 3rd of -1.2 , in the osteopenic range.. IMPRESSION: Normal bone mineral density of the lumbar spine and left hip. Osteopenia of the left forearm.
== END 2022-09-10 01:19 ==
LOC: DI 01:00
PROVIDERS: PCP Nurse Practitioner Family; Visit Provider Nurse Practitioner Family
DX: Z13.820 Encounter for screening for osteoporosis (principal); Z79.52 Long term (current) use of systemic steroids; Z87.81 Personal history of (healed) traumatic fracture; M85.88 Other specified disorders of bone density and structure, other site
CPT/HCPCS: 77080

== ENCOUNTER 2022-09-13 14:00 | Outpatient (RCR) | payer MEDICARE, SELFPAY | END 2022-09-14 23:59 | disposition home or self-care (01) | LOC: PRC 14:00 | PROVIDERS: PCP Nurse Practitioner Family; Visit Provider Student in an Organized Health Care Education/Training Program | DX: J44.9 Chronic obstructive pulmonary disease, unspecified (principal); Z51.89 Encounter for other specified aftercare | CPT/HCPCS: 94626 ==

== ENCOUNTER 2022-10-13 12:43 | Outpatient (CLI) | payer MEDICARE, SELFPAY ==
--- NOTE | 2022-10-13 12:15 | DI.RAD_ITS ---
Exam(s) XR LUMBAR SPINE COMP W FLEX/EX EXAM: XR LUMBAR SPINE COMP W FLEX/EX CLINICAL HISTORY: djd of lumbar spine, back pain, m47.816. TECHNIQUE: 2D digital imaging was performed of the lumbar spine. Eight images were obtained. AP, l ateral, right oblique, flexion and extension left oblique and L5-S1 spot views were obtained. COMPARISON: CT CT LUMBAR SPINE WO from 07/21/2022 MR MR LUMBAR SPINE WO from 08/25/2022 CR XR DEXA BONE DENSITY W/WO MARIBEL from 09/10/2022 FINDINGS: BONES: No acute fracture or subluxation. There is an old compression deformity of T11. There are end plate osteophytes throughout the lumbar spine. No facet hypertrophy identified. DISKS: There is narrowing of all the disc spaces, but most marked at L1-L2. Vacuum discs are seen at almost all the lumbar spine disc spaces. ALIGNMENT: There is grade 1 anterolisthesis of L4 on L5. There is also mild retrolisthesis of L1 on L2. There is no significant change with flexion or extension. No spondylolysis. SOFT TISSUE: Atherosclerosis is present. IMPRESSION: Marked degenerative changes in the lumbar spine. DATA REPOSITORY: RADIATION DOSE DELIVERED:
== END 2022-10-13 13:03 ==
LOC: DI 12:43
PROVIDERS: PCP Nurse Practitioner Family; Visit Provider Student in an Organized Health Care Education/Training Program
DX: M47.816 Spondylosis without myelopathy or radiculopathy, lumbar region (principal); M43.16 Spondylolisthesis, lumbar region
CPT/HCPCS: 72114

== ENCOUNTER 2022-10-15 14:33 | Outpatient (RCR) | payer MEDICARE, SELFPAY | END 2022-10-15 23:59 | disposition home or self-care (01) | LOC: PRC 14:33 | PROVIDERS: PCP Nurse Practitioner Family; Visit Provider Student in an Organized Health Care Education/Training Program | DX: J44.9 Chronic obstructive pulmonary disease, unspecified (principal) | CPT/HCPCS: 94626 ==

== ENCOUNTER 2022-10-20 15:13 | Outpatient (RCR) | payer MEDICARE, SELFPAY ==
--- NOTE | 2022-10-26 08:58 | W.PFT ---
Date of service: 10/26/22 Time of Service: 08:58 Pulmonary Function Test Result Indications: Post pulmonary rehab Interpretation Spirometry: There is moderate airflow limitation. Impression Moderate airflow obstruction. Note: When compared to 12/03/21, both FEV1 and FVC have significantly improved. Clinical Correlation therefore is recommended.
--- NOTE | 2022-11-07 10:55 | PRPHASE3_ITS ---
Date of service: 11/05/22 Time of Service: 12:05 Cardiopulmonary Rehabilitation Note Narrative: Pulmonary Rehab Discharge The patient completed the prescribed pulmonary rehab program at [facility]. Below is a summary of the patients pre program and post program data. Category Initial Discharge Weight 248 240 [place] index 3 2 6MWT Distance 850 ft 950 ft 6MWT METs 2.2 2.4 Peak METs during OR 2.7 2.8 mMRC 1 1 [place] RQ 33 36 PHQ9 0 4 The patient has been offered to take part in the maintenance program of pulmonary rehab if they are interested in continuing.
== END 2022-11-14 23:59 | disposition home or self-care (01) ==
LOC: PRC 15:13
PROVIDERS: PCP Nurse Practitioner Family; Visit Provider Student in an Organized Health Care Education/Training Program
DX: J44.9 Chronic obstructive pulmonary disease, unspecified (principal)
CPT/HCPCS: 94626

== ENCOUNTER 2022-12-10 01:47 | Outpatient (CLI) | payer MEDICARE, SELFPAY ==
[2022-12-13 11:08] LABS: Lyme Ab w Rflx to Lyme Confirm Negative (Negative)
== END 2022-12-10 01:48 | disposition home or self-care (01) ==
LOC: LBO 01:47
PROVIDERS: PCP Nurse Practitioner Family; Visit Provider Nurse Practitioner Family
DX: W57.XXXA Bitten or stung by nonvenomous insect and other nonvenomous arthropods, initial encounter (principal); T14.8XXA Other injury of unspecified body region, initial encounter
CPT/HCPCS: 36415; 86618

== ENCOUNTER 2022-12-10 10:56 | Outpatient (CLI) | payer MEDICARE, SELFPAY ==
--- NOTE | 2022-12-10 11:11 | DI.RAD_ITS ---
Exam(s) XR CHEST 2V PA LATERAL EXAM: XR CHEST 2V PA LATERAL CLINICAL HISTORY: preop, hx cardiopulm dz, COPD, Z01.818, J44.9. TECHNIQUE: 2D digital imaging was performed. COMPARISON: CR XR CHEST 2V PA LATERAL from 06/07/2022 FINDINGS: 2 views: Sternotomy wires again noted. Heart size is normal. The mediastinum is not widened. Lungs are clear. No new infiltrates nor pleural effusions. Mild scarring in the left lung base is unchanged. Possibly related to the prior sternotomy surgery. IMPRESSION: No acute pulmonary findings. DATA REPOSITORY: RADIATION DOSE DELIVERED:
== END 2022-12-10 11:16 ==
PROVIDERS: PCP Nurse Practitioner Family; Visit Provider Nurse Practitioner Family
DX: J44.9 Chronic obstructive pulmonary disease, unspecified (principal); Z01.818 Encounter for other preprocedural examination
CPT/HCPCS: 71046

== ENCOUNTER 2022-12-25 03:45 | Inpatient (IN) | payer MEDICARE, SELFPAY ==
[2022-12-25] VITALS (79 sets, daily range): BP systolic 99–148; BP diastolic 20–121; PULSE 73–104; RESP 13–26; TEMP 36.6–38.1; O2SAT 88–98
--- NOTE | 2022-12-25 03:45 | DI.CT_ITS ---
Exam(s) CT CHEST PE CTA EXAM: CT CHEST PE CTA CLINICAL HISTORY: sob, hypoxic, 3 days post surg, fever. TECHNIQUE: Imaging Protocol: Axial CT angiography was performed with multi-slice acquisition and mu lti-planar and/or 3D reconstructions. CONTRAST MATERIAL: Intravenous: Omnipaque 350 contrast volume:100 mL COMPARISON: CT CT ABDOMEN PELVIS W from 12/25/2022 FINDINGS: Tracheobronchial tree: Findings suggestive of tracheobronchomalacia. Pulmonary parenchyma: No consolidation or dominant measurable mass. Mild dependent atelectasis. Pulmonary Arteries: No evidence of filling defect to suggest pulmonary emboli. Mediastinum and Nohemi: No dominant adenopathy or fluid collection. The esophagus is unremarkable. Visualized thyroid gland: Unremarkable. Pleura: No effusion or pneumothorax. Heart: Mild cardiomegaly. Moderate coronary artery calcification. No pericardial effusion. Aorta: Thoracic aorta non-dilated. No evidence of dissection. Atherosclerosis. Upper abdomen: Unremarkable. Soft tissues: Mild gynecomastia. Bones: Within normal limits for the patient's age.Sternal wires are in place. IMPRESSION: 1. No evidence of pulmonary embolism, thoracic aortic dissection or aneurysm. 2. Mild basilar atelectasis. 3. Findings suggestive of moderate tracheobronchomalacia. RADIATION DOSE DELIVERED: Total DLP DATA REPOSITORY: All CT scans at this facility are submitted to the National Radiology Data Registry (NRDR) Dose Index Registry (DIR) with the [employer] ([employer]). RADIATION OPTIMIZATION: All CT scans at this facility use at least one of these dose optimization te chniques: automated exposure control; mA and/or kV adjustment per patient size (includes targeted exa ms where dose is matched to clinical indication); or iterative reconstruction.
--- NOTE | 2022-12-25 03:45 | RT.EKG_ITS ---
APPROVED REPORT Exam: Resting ECG Reason for Exam: fever Patient Location: E HR:93 bpm ECG Measurements Heart Rate 93 AXIS SC 171 P 39 QRSd 118 QRS -25 QT 375 T -8 QTc 466 Conclusion Sinus rhythm...normal P axis, V-rate 60- 99 Nonspecific intraventricular conduction delay...QRSd >115mS, not LBBB/RBBB Inferior infarct, old...Q >35mS, II III aVF Probable anterolateral infarct, old...Q>35mS, abnrm ST-T, V2-V6,I,aVL Physician: no stemi
--- NOTE | 2022-12-25 03:51 | DI.CT_ITS ---
Exam(s) CT LUMBAR SPINE RECONS CT ABDOMEN PELVIS W EXAM: CT ABDOMEN PELVIS W and lumbar spine recons CLINICAL HISTORY: fever, distended, post op spinal surg TECHNIQUE: Imaging Protocol: Axial computed tomography images with coronal and sagittal reformatted images were created and reviewed CONTRAST MATERIAL: Intravenous: Omnipaque 350 Contrast volume:100 mL Oral: No COMPARISON: CT CT ABDOMEN PELVIS W from 07/25/[address] LUMBAR SPINE RECONS from 12/25/2022 FINDINGS: ABDOMEN: Lung Bases: Please see the CT scan of the chest report from the same day. Liver: Normal density. No measurable mass. Portal, Superior Mesenteric, and Splenic Veins: Unremarkable. Gallbladder and Biliary Tract: No radiodense calculus or dilation. Pancreas: No evidence of a pancreatic mass or inflammation. Stable calcifications in the pancreas. Spleen: Calcified granuloma in the spleen. Adrenals: Stable left adrenal nodules likely reflecting adenomas. No follow-up is recommended. Unre markable right adrenal gland. Kidneys: Normal size, contour and axis. Bilateral nephrolithiasis. No hydronephrosis. Stable bilate ral renal cysts. No follow-up is recommended. Abdominal Aorta: Abdominal portion non-dilated. Atherosclerosis is present. Bowel: No obstruction or bowel wall thickening. There is some fluid seen in the bowel which may repr esent diarrhea. Appendix is unremarkable. Peritoneal Cavity: No ascites, collection or mesenteric inflammatory response. No free air. Lymph Nodes: Within normal limits. Bones: Within normal limits for the patient's age. Soft Tissues: There is a midline fat containing anterior abdominal wall hernia just inferior to the x iphoid process. PELVIS: Bladder: Symmetric distention, no gross wall thickening. There is air seen within the dependent urina ry bladder. This may represent recent catheterization. Please correlate clinically. Reproductive Organs: Unremarkable as visualized. Lymph Nodes: Within normal limits. Bones: Within normal limits for the patient's age. Lumbar spine CT recons: The patient is status post laminectomy at L3 and L4 with posterior spinal mila s and pedicle screws at L3, L4 and L5. There are degenerative changes seen throughout the lumbar spi ne with disc space narrowing, vacuum disc and endplate osteophytes. There is an old T11 compression deformity. No acute fracture or dislocation is seen. There is fluid and air seen in the soft tissue s posteriorly consistent with the recent surgery. There is a 1.5 x 2.1 cm air-fluid collection in th e spinal canal L3-L4. IMPRESSION: 1. Fluid seen within mildly distension distended colon which can be seen with a diarrheal state. 2. Air seen within the urinary bladder. This may reflect recent bladder instrumentation. Please cor relate clinically. In the absence of recent catheterization, infection should be considered. 3. Postsurgical changes with laminectomy and posterior fusion from L3 through L5. There is air in fl uid seen in the operative field which may simply be postoperative change. Please correlate clinicall y for the presence or absence of superimposed infection. RADIATION DOSE DELIVERED: Total DLP DATA REPOSITORY: All CT scans at this facility are submitted to the National Radiology Data Registry (NRDR) Dose Index Registry (DIR) with the [employer] (ACR). RADIATION OPTIMIZATION: All CT scans at this facility use at least one of these dose optimization te chniques: automated exposure control; mA and/or kV adjustment per patient size (includes targeted exa ms where dose is matched to clinical indication); or iterative reconstruction.
[2022-12-25] MEDS: Normal Saline 1,000 ML 1000 ML IV (04:01)
[2022-12-25] MEDS: MORPHine 4 MG/ML SYR IVP (04:02)
[2022-12-25] MEDS: PIPERACILLIN/TAZO 3.375 GM in Normal Saline 50 ML IVPB (04:02)
[2022-12-25 04:03] LABS: Lactate 1.2 mmol/L (0.6-1.4)
[2022-12-25 04:05] LABS: Abs Immature Grans 0.08 10^3/uL (0.0-0.06); Absolute Basophil Count 0.03 10^3/uL (0.0-0.2); Absolute Eosinophil Count 0.09 10^3/uL (0.0-0.7); Absolute Lymphocyte Count 0.74 10^3/uL (1.2-3.4); Absolute Monocyte Count 1.33 10^3/uL (0.1-0.8); Absolute Neutrophil Count 11.14 10^3/uL (1.2-6.7); Basophils % 0.2; Eosinophils % 0.7; HCT 35.2 % (40.0-50.0); HGB 11.9 g/dL (13.5-17.5); Immature Grans % 0.6; Lymphocytes % 5.5; MCH 31.7 pg (27.0-33.0); MCHC 33.8 % (32.0-36.0); MCV 94 fL (80-95); MPV 9.7 fL (8.0-11.0); Monocytes % 9.9; Neutrophils % 83.1; Platelet Count 128 10^3/uL (130-400); RBC 3.75 10^6/uL (4.36-5.78); RDW-SD 44.2 fL; WBC 13.41 10^3/uL (4.4-10.8)
--- NOTE | 2022-12-25 04:08 | NUR.NOTE ---
Nursing Note: pts family member states the pt was released to go home yesterday and that he has been having trouble getting around at home since the back surgery. At 0115 tonight the pt was medicated with 2mg po Dilaudid and x2 Tylenol, states he felt weak and hot at home and he nearly fell trying to get OOB to the BR. IV established by EMS, pt arrived afebrile, labs including x2 sets BC drawn iv meds infusing
--- NOTE | 2022-12-25 04:10 | W.ED.GENAD ---
Discharge Plan Discharge Details Chief Complaint: GenMedical Clinical Impression: Fever Primary Care Provider: Sangita Rose ED Provider: Alessandro Simeon Home Meds and New Rx's Prescriptions: No Action magnesium oxide 500 mg capsule 500 mg PO DAILY Qty: 90 3RF acetaminophen 500 mg tablet 1,000 mg PO TID PRN metoprolol succinate 25 mg tablet extended release 24 hr 25 mg PO DAILY Qty: 90 3RF primidone 50 mg tablet 150 mg PO QHS MDD 150 mg Qty: 270 3RF acetylcysteine [NAC] 600 mg capsule 600 mg PO BID Qty: 60 7RF aspirin 81 MG tablet,delayed release (DR/EC) 81 mg PO DAILY (DME) Aerochamber Plus Flow-Vu,S Msk 1 EACH spacer 1 ea Miscellaneous PRN polyethylene glycol 3350 [GlycoLax] 527 GM powder 17 g PO DAILY (DME) lancets [OneTouch Delica Lancets] 1 EACH misc 1 ea Miscellaneous DAILY Qty: 100 Rx Instructions: E11.9 to maintain A1C less than 7.0 albuterol sulfate [ProAir HFA] 8.5 GM HFA aerosol inhaler 1 - 2 puff Inhalation Q4-6H PRN Qty: 1 3RF Rx Instructions: DISPENSE ALBUTEROL INHALER BRAND COVERED BY INSURANCE cholecalciferol (vitamin D3) 25 mcg (1,000 unit) tablet 1,000 unit PO BID fluticasone furoate-vilanterol [Breo Ellipta] 100-25 mcg/dose blister with device 1 ea Inhalation DAILY Qty: 60 12RF Rx Instructions: [facility] Incruse Ellipta 62.5 mcg/actuation blister with device 62.5 mcg Inhalation DAILY Qty: 30 12RF (DME) nebulizer and accessories See Rx Instructions .Route .MEDSUPPLY Qty: 1 0RF Rx Instructions: As directed clotrimazole [Lotrimin AF (clotrimazole)] 1 % cream 1 applic TP BID Qty: 45 3RF Rx Instructions: Apply thin film to affected area until resolution (usually 4 weeks) + 3-4 days pantoprazole 20 mg tablet,delayed release (DR/EC) 20 mg PO DAILY Qty: 90 3RF Rx Instructions: Take 20 mg daily once daily in the morning at least 30-60 minutes before first meal of the day atorvastatin 80 mg tablet 80 mg PO DAILY Qty: 90 3RF (DME) Blood Glucose Test Strip See Rx Instructions .ROUTE .MEDSUPPLY Qty: 100 3RF Rx Instructions: As directed to check daily morning fasting blood glucose. No insulin. Dispense covered brand. celecoxib [Celebrex] 100 mg capsule 100 mg PO BID PRN (Reason: pain) Qty: 180 0RF albuterol sulfate 2.5 mg/0.5 mL solution for nebulization 2.5 mg Inhalation Q4-6H PRN Qty: 180 3RF gabapentin 300 mg capsule 300 mg PO TID Qty: 270 0RF citalopram 40 mg tablet 40 mg PO DAILY Qty: 90 3RF cyclobenzaprine 10 mg tablet 10 mg PO TID PRNQty: 20 0RF hydromorphone 2 mg tablet 2 mg PO Q4H PRN PRN sennosides [senna] 8.6 mg Tablet 8.6 mg PO BID PRN Medical Decision Making This is an 82-year-old male with a past medical history of cardiovascular disease status post CABG in 1995, hypertension, high cholesterol, nonalcoholic fatty liver disease, COPD, bronchiectasis, type 2 diabetes, essential tremor, and recent L3-L5 posterior lateral fusion, L3-L5 laminectomy with medial facetectomy's and foraminotomies with pedicle screw placement and local bone grafting which was performed 3 days ago with subsequent discharge yesterday. He did not have a bowel movement by the time of discharge, but was passing flatus. Unfortunately since he got home the patient has been having fevers as well as cough. Tmax is 102 at home at 1 AM. He did receive Tylenol shortly thereafter. He admits to shortness of breath. He denies any chest pain. He admits to chills. He admits to continued pain in his lower back. He denies vomiting or diarrhea. He presents tonight via EMS for continued pain and fevers and weakness. He denies any bowel or bladder incontinence. He denies any saddle anesthesia. No other complaints at this time. No history of blood clots. He is not on any blood thinners. On arrival patient is mildly hypoxic at 88%. Abdomen is mildly distended, crackles in the bases of his lungs. Differential includes pneumonia, pulmonary embolism, postoperative infection, or UTI. We will evaluate for these concerning etiologies. We will start vancomycin and Zosyn, will get blood cultures, monitor closely and reassess. We will get CT imaging of his back and chest. 7:40 AM Laboratory work-up has returned, elevated white count at 13, moderate left shift. Lactate is 1.2. Electrolyte and renal function is stable. Procalcitonin is 0.1. Pending urinalysis still. Patient is retaining about 800 cc of urine. We will place Fay catheter. Concern for postoperative retention versus neurologic retention. CT scan results have returned, chest is negative for significant abnormalities aside for minimal atelectatic changes, with some discoid atelectasis in the right middle lobe. No evidence of focal consolidation though. CT scan of the abdomen does demonstrate gaseous distention of the colon with mild fecal stasis but no obstruction. There are also some air-fluid levels in the operative field which may represent postoperative changes versus infection. Patient is still stable. No hypotension or tachycardia yet. We will reach out to [facility] for further discussion the images and the next step. Patient is already see vancomycin and Zosyn. Oxygenation is stable now. Patient will be signed out to my colleague Dr. Rose for follow-up on consult. FINDINGS: Bones/joints: Will continue with the designation of the last intervertebral disc space as L5-S1, as on the comparison MRI. There has been no interval change in the chronic wedge compression fracture of T11. Stable mild grade 1 anterolisthesis of L4 on L5. There is multilevel degenerative disc disease without significant spinal canal stenosis. This is most pronounced at L1-L2. Recent laminectomies at L3, L4 and L5 with orthopedic instrumentation for posterior fusion. Soft tissues: There are gas bubbles in the operative field. There is a small 15 x 21 mm collection with an air-fluid level in the spinal canal at L3-L4. There is a fluid collection in the paraspinous muscles at the site of surgery. IMPRESSION: 1. Postoperative changes from L3 - L5. There is fluid and gas in the spinal canal, in the operative field and paraspinous muscles. This may simply reflect postoperative hematoma/seroma; however, infection may present a similar picture. Clinical correlation and follow-up is recommended as clinically indicated. 2. Multilevel degenerative disc disease without severe central spinal canal stenosis, most pronounced at L1-L2. Thank you for allowing us to participate in the care of your patient. Dictated and Authenticated by: Carlton Duggan MD 12/25/2022 7:47 AM Eastern Time ([place] & [place]) FINDINGS: Pulmonary arteries: There are no filling defects in the pulmonary arteries to suggest pulmonary emboli. Aorta: There is no thoracic aortic aneurysm or dissection. Lungs: There is some tracheobronchomalacia, involving predominantly the distal trachea as well as the right and left mainstem bronchi (series 16, images [id number]). There are bibasilar dependent atelectatic changes. There is discoid atelectasis in the right middle lobe. There is dependent atelectasis in the left upper lobe along the major fissure. There is no evidence of focal pulmonary consolidation. Pleural spaces: Unremarkable. No pneumothorax. No pleural effusion. Heart: There are no pericardial fluid collections. Lymph nodes: No enlarged mediastinal or hilar lymph nodes are seen. Bones/joints: There has been a median sternotomy for coronary revascularization. Multilevel degenerative disc disease without significant spinal canal stenosis. Soft tissues: Unremarkable. IMPRESSION: 1. No evidence of pulmonary embolus. 2. Moderate tracheo-bronchomalacia. 3. Incomplete lung expansion and atelectatic changes as described above. 4. Status post median sternotomy. Thank you for allowing us to participate in the care of your patient. Dictated and Authenticated by: Carlton Duggan MD 12/25/2022 7:21 AM Eastern Time ([place] & [place]) FINDINGS: Lungs: The visualized lung ragland show mild bibasilar atelectasis. Liver: The liver is normal in size. There are no enhancing liver masses. Gallbladder and bile ducts: The gallbladder is normal. No gallstones are identified. Pancreas: The pancreas is normal. Spleen: The spleen is normal in size and density. 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 Kidneys and ureters: No hydronephrosis.There are multiple bilateral nonobstructing renal calculi, as large as 6 mm. Multiple bilateral simple appearing renal cysts are present as large size 2.9 cm. Stomach and bowel: There is no evidence of small bowel or colonic obstruction. There is moderate fecal stasis and mild gaseous distention of the colon, specially the ascending and transverse segments. There are some air-fluid levels suggestive of a diarrheal state. Appendix: A normal appendix is identified with an appendicular at the tip. No periappendiceal inflammatory changes. Intraperitoneal space: No free air. No significant fluid collection. Vasculature: There is moderate atherosclerotic calcification of the abdominal aorta and its branches without aneurysm. Lymph nodes: No enlarged retroperitoneal or mesenteric lymph nodes. Urinary bladder: The bladder is moderately distended with an air-fluid level. Reproductive: Unremarkable as visualized. Bones/joints: Multilevel degenerative disc disease without significant spinal canal stenosis. Recent laminectomies at L3, L4 and L5 with orthopedic instrumentation for posterior fusion. There are gas bubbles in the operative field of the may simply reflect postoperative changes. There is a small 15 mm collection with an air-fluid level in the spinal canal at L3-L4. There is fluid collection in the paraspinous muscles at the site of surgery. Soft tissues: See Bones/joints finding. IMPRESSION: 1. Mild gaseous distension of the colon with moderate fecal stasis and probable diarrheal state. 2. Moderately distended urinary bladder with an air-fluid level. In the absence of recent bladder instrumentation, this is suspicious for a urinary tract infection. 3. Status post recent laminectomy and posterior fusion from L3 -L5. Air and air-fluid levels in the operative field may simply reflect postoperative changes. However, correlate clinically as to the presence or absence of superimposed infection. 4. 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 5. Multiple bilateral renal cysts. 6. Multiple bilateral nonobstructive renal calculi. Thank you for allowing us to participate in the care of your patient. Dictated and Authenticated by: Carlton Duggan MD 12/25/2022 6:56 AM Eastern Time ([place] & [place]) HPI General Date/Time Provider Initiated Documentation: 12/25/22 03:55. HPI Narrative: This is an 82-year-old male with a past medical history of cardiovascular disease status post CABG in 1995, hypertension, high cholesterol, nonalcoholic fatty liver disease, COPD, bronchiectasis, type 2 diabetes, essential tremor, and recent L3-L5 posterior lateral fusion, L3-L5 laminectomy with medial facetectomy's and foraminotomies with pedicle screw placement and local bone grafting which was performed 3 days ago with subsequent discharge yesterday. He did not have a bowel movement by the time of discharge, but was passing flatus. Unfortunately since he got home the patient has been having fevers as well as cough. Tmax was 102 at home at 1 AM he admits to shortness of breath. He denies any chest pain. He admits to chills. He admits to continued pain in his lower back. He denies vomiting or diarrhea. He presents tonight via EMS for continued pain and fevers and weakness. He denies any bowel or bladder incontinence. He denies any saddle anesthesia. No other complaints at this time. No history of blood clots. He is not on any blood thinners. Related Data Home Medications Medication Instructions Recorded Confirmed aspirin 81 mg tablet,delayed 81 mg PO DAILY 09/28/12 12/25/22 release inhalational spacing device 09/28/12 12/25/22 (Aerochamber Plus Flow-Vu,Small Mask) lancets 33 gauge ([facility] [facility] #[facility] ea 10/13/16 12/25/22 Lancets) polyethylene glycol 3350 17 17 g PO DAILY 10/13/16 12/25/22 gram/dose oral powder (GlycoLax) albuterol sulfate 90 mcg/actuation 1 - 2 puff inhalation Q4-6H PRN ##1 04/18/17 12/25/22 aerosol inhaler (ProAir HFA) magnesium oxide 500 mg capsule 500 mg PO DAILY #90 tab-caps 11/02/18 12/25/22 cholecalciferol (vitamin D3) 25 1,000 unit PO BID 11/01/19 12/25/22 mcg (1,000 unit) tablet acetaminophen 500 mg tablet 1,000 mg PO TID PRN 07/15/21 12/25/22 acetylcysteine 600 mg capsule (NAC) 600 mg PO BID #60 caps 10/20/21 12/25/22 fluticasone furoate 100 1 ea inhalation DAILY #60 ea 01/29/22 12/25/22 mcg-vilanterol 25 mcg/dose inhalation powder (Breo Ellipta) umeclidinium 62.5 mcg/actuation 62.5 mcg inhalation DAILY #30 ea 01/29/22 12/25/22 blister powder for inhalation (Incruse Ellipta) nebulizer and accessories #1 ea 04/16/22 12/25/22 clotrimazole 1 % topical cream 1 applic topical BID tinea #45 06/02/22 12/25/22 (Lotrimin AF (clotrimazole)) grams pantoprazole 20 mg tablet,delayed 20 mg PO DAILY #90 tab-caps 06/21/22 12/25/22 release cyclobenzaprine 10 mg tablet 10 mg PO TID PRN #20 tabs 07/21/22 12/25/22 atorvastatin 80 mg tablet 80 mg PO DAILY #90 tabs 10/13/22 12/25/22 blood sugar diagnostic (Blood #100 ea 10/13/22 12/25/22 Glucose Test strips) metoprolol succinate 25 mg 25 mg PO DAILY #90 tab-caps 10/21/22 12/25/22 tablet,extended release 24 hr primidone 50 mg tablet 150 mg PO QHS #270 tabs 10/21/22 12/25/22 albuterol sulfate 2.5 mg/0.5 mL 2.5 mg (0.5 mL) inhalation Q4-6H 11/10/22 12/25/22 solution for nebulization PRN #180 vials celecoxib 100 mg capsule (Celebrex) 100 mg PO BID PRN pain #180 caps 11/10/22 12/25/22 gabapentin 300 mg capsule 300 mg PO TID #270 caps 11/24/22 12/25/22 citalopram 40 mg tablet 40 mg PO DAILY #90 tab-caps 11/26/22 12/25/22 hydromorphone 2 mg tablet 2 mg PO Q4H PRN PRN 12/25/22 12/25/22 sennosides 8.6 mg tablet (senna) 8.6 mg PO BID PRN 12/25/22 12/25/22 Previous Rx's Medication Instructions Recorded albuterol sulfate 90 mcg/actuation 1 - 2 puff inhalation Q4-6H PRN ##1 04/18/17 aerosol inhaler (ProAir HFA) magnesium oxide 500 mg capsule 500 mg PO DAILY #90 tab-caps 11/02/18 acetylcysteine 600 mg capsule (NAC) 600 mg PO BID #60 caps 10/20/21 fluticasone furoate 100 1 ea inhalation DAILY #60 ea 01/29/22 mcg-vilanterol 25 mcg/dose inhalation powder (Breo Ellipta) umeclidinium 62.5 mcg/actuation 62.5 mcg inhalation DAILY #30 ea 01/29/22 blister powder for inhalation (Incruse Ellipta) nebulizer and accessories #1 ea 04/16/22 clotrimazole 1 % topical cream 1 applic topical BID tinea #45 06/02/22 (Lotrimin AF (clotrimazole)) grams pantoprazole 20 mg tablet,delayed 20 mg PO DAILY #90 tab-caps 06/21/22 release cyclobenzaprine 10 mg tablet 10 mg PO TID PRN #20 tabs 07/21/22 atorvastatin 80 mg tablet 80 mg PO DAILY #90 tabs 10/13/22 blood sugar diagnostic (Blood #100 ea 10/13/22 Glucose Test strips) metoprolol succinate 25 mg 25 mg PO DAILY #90 tab-caps 10/21/22 tablet,extended release 24 hr primidone 50 mg tablet 150 mg PO QHS #270 tabs 10/21/22 albuterol sulfate 2.5 mg/0.5 mL 2.5 mg (0.5 mL) inhalation Q4-6H 11/10/22 solution for nebulization PRN #180 vials celecoxib 100 mg capsule (Celebrex) 100 mg PO BID PRN pain #180 caps 11/10/22 gabapentin 300 mg capsule 300 mg PO TID #270 caps 11/24/22 citalopram 40 mg tablet 40 mg PO DAILY #90 tab-caps 11/26/22 Allergies Allergy/AdvReac Type Severity Reaction Status Date / Time codeine AdvReac Unknown Verified 12/10/22 09:59 General Stated Complaint: GenMedical YUE: 3 Review of Systems All systems reviewed & are unremarkable except as noted in HPI and below PFSH All Active Problems (Updated 12/25/22 @ 07:56 by Alessandro Simeon DO) Fever (Acute) Degenerative spondylolisthesis (Acute) 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) Most recent MRI 08/25/2022 showing stenosis; Spine consult 11/01/2022 Degenerative joint disease (DJD) of lumbar spine (Acute) Effusion, right knee (Acute) Arthritis of right glenohumeral joint (Acute) Degenerative joint disease of right knee (Acute) Depo-Medrol injection: 05/07/2022 Bronchiectasis (Acute) Adrenal nodule (Acute) Rib pain on left side (Acute) Trochanteric bursitis of both hips (Chronic) Non-alcoholic fatty liver disease (Chronic 09/29/12) Type 2 diabetes mellitus (Chronic) Dx: 10/2018 Obesity (BMI 30-39.9) (Chronic) Advance directive in chart (Chronic 04/22/15) On-file with [facility] as of 04/22/2015 Sensorineural hearing loss, bilateral (Chronic 08/29/17) Osteoarthritis of knee (Chronic 08/13/13) Hypomagnesemia (Chronic 10/07/17) Hyperlipidemia, unspecified (Chronic 07/09/11) LDL GOAL 100 Gastroesophageal reflux disease (Chronic 07/09/11) Essential tremor (Chronic 07/27/11) Essential hypertension (Chronic 07/09/11) GOAL <130/80 Depression (Chronic 06/04/14) Long-term Celexa Rx Chronic obstructive pulmonary disease (COPD) (Chronic 09/29/12) MILD, 08/2012 PFTs FEV1 2.06 (70% pred and FVC), no response to bronchodilator; 11/17/15 bronchoscopy [facility]: NEG for [employer], fungus, & bacteria; cytology NEG for malignancy Cardiomyopathy (Chronic 04/10/12) BPH (benign prostatic hyperplasia) (Chronic 04/10/12) ASCVD (arteriosclerotic cardiovascular disease) (Chronic) S/p 5 vessel CABG 1995 Echo 09/27/2014 with normal LVEF Medical History Cataract 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 Essential tremor Heart disease Hypertension Sister Hypertensive disorder, systemic arterial Heart disease Brother , [place] at age 78. Heart disease Essential tremor Brother Heart disease Daughter Essential tremor Social History Smoking/Tobacco Use Status: Former Tobacco Use Tobacco: How many years used: 30 Smoking risk assessment performed?: Yes Alcohol Intake: never Drug use: Never Substance use type: does not use Adopted: No Caregiver/Support person: No Foster care: No Household members: spouse Housing: house Number of Children: 7 number of grandchildren: 25 Communication Needs: Hard of Hearing Education Level: high school Do you need help understanding health information?: Rarely current occupation: [employer] Pets and animals: Yes Pets and animals: dog(s) Sexually active: No Do you think of yourself as: straight/heterosexual Current gender identity: male What is your relationship status?: How often do you talk on the phone with friends or family?: three or more times per week How often do you get together with friends or relatives?: once per week Do you belong to any clubs or organized social groups?: yes Panel score (0-1 are the most socially isolated patients): 3 What type of physical activity do you participate in: walking and other Details: House work Duration: 15-30 minutes/day Frequency: 5-6 times per week Lindy/Muslim: Evangelical Seatbelt use: always Drive intox or ride w/intox van driver: No Water heater temp set <120 deg: Yes Working smoke detector in home: Yes Fire extinguisher in home: Yes Carbon monox detector in home: Yes Do you feel safe at home: Yes Do you feel safe in your relationship?: Yes Additional Social history: He has 5 step-children in addition to 3 biological. Exam Narrative Exam Narrative: 1.Const: Well-nourished, Well-developed, appearing stated age 2.Eyes: PERRL, no conjunctival injection, and symmetrical lids. 3.ENT: Atraumatic external nose and ears. Moist MM. Neck: Symmetric, trachea midline, No thyromegaly. 4.CVS: +S1/S2, No murmurs or gallops. Peripheral pulses 2+ and equal in all extremities. Brisk capillary refill in all extremities. 5.RESP: Unlabored respiratory effort. Minimal crackles at the bases. 6.GI: Soft, mildly distended, no guarding or rebound. 7.MSK: Normocephalic/Atraumatic, Extremities w/o deformity or ttp No cyanosis or clubbing, Normal movement of all extremities. No saddle anesthesia. Normal saddle and rectal sensation. Postoperative surgical sites are clean dry and intact with no redness erythema or drainage or discharge or warmth. 8.Skin: Warm, Dry. No rashes or lesions. Please see musculoskeletal 9.Neuro: set designer II-XII grossly intact. Sensation grossly intact, no focal neurologic deficits. 10.Psych: (AAO) x3. Appropriate mood and affect Course Vital Signs Vital signs: Vital Signs Temperature 36.8 C 12/25/22 03:50 Pulse 97 H 12/25/22 03:50 Respiratory Rate 18 12/25/22 03:50 Blood Pressure 125/60 12/25/22 03:50 Pulse Oximetry 88 L 12/25/22 03:50 Temperature 36.8 C 12/25/22 03:50 Temperature Source Oral 12/25/22 03:50 Pulse 97 H 12/25/22 03:50 Respiratory Rate 18 12/25/22 03:50 Respiratory Effort Normal, Non-Labored 12/25/22 03:55 Respiratory Depth Normal 12/25/22 03:55 Respiratory Pattern Normal 12/25/22 03:55 Blood Pressure 125/60 12/25/22 03:50 Blood Pressure Position Supine 12/25/22 03:50 Pulse Oximetry 88 L 12/25/22 03:50 Oxygen Delivery Method Room Air 12/25/22 03:50 Oxygen Flow Rate 0 12/25/22 03:50 Pain Level 6 12/25/22 03:50 Lab/Test Results Lab/Test Results: 12/25/22 03:53 Blood Blood Culture - Pending 12/25/22 03:50 Blood Blood Culture - Pending Laboratory Tests Range/Units 12/25/22 12/25/22 03:53 03:53 WBC (4.4-10.8) 10^3/uL 13.41 H RBC (4.36-5.78) 10^6/uL 3.75 L Hgb (13.5-17.5) g/dL 11.9 L Hct (40.0-50.0) % 35.2 L MCV (80-95) fL 94 MCH (27.0-33.0) pg 31.7 MCHC (32.0-36.0) % 33.8 RDW (11.8-14.1) % 13.0 Plt Count (130-400) 10^3/uL 128 L MPV (8.0-11.0) fL 9.7 Immature Gran % 0.6 Neutrophils % 83.1 Lymphocytes % 5.5 Monocytes % 9.9 Eosinophils % 0.7 Basophils % 0.2 Nucleated RBC % (0.0-0.3) % 0.0 Absolute Neutrophils (1.2-6.7) 10^3/uL 11.14 H Absolute Lymphocytes (1.2-3.4) 10^3/uL 0.74 L Absolute Monocytes (0.1-0.8) 10^3/uL 1.33 H Absolute Eosinophils (0.0-0.7) 10^3/uL 0.09 Absolute Basophils (0.0-0.2) 10^3/uL 0.03 VBG Lactate (0.6-1.4) mmol/L 1.2
[2022-12-25 04:25] LABS: INR 1.1 (0.9-1.1); PTT Activated 35.6 sec (21.5-31.9); Prothrombin Time 10.7 sec (9.3-11.0)
[2022-12-25 04:25] LABS: ALT 15 U/L (16-63); AST 21 U/L (15-37); Alkaline Phosphatase 82 U/L (46-116); Anion Gap 6.2 mmol/L (3-11); BUN 16 mg/dL (7-18); Bilirubin, Total 1.2 mg/dL (0.2-1.0); CO2 29.8 mmol/L (21.0-32.0); Calcium 8.7 mg/dL (8.5-10.1); Chloride 100 mmol/L (98-107); Estimated GFR 74.21 (mL/min/1.73m2); Glucose 195 mg/dL (74-106); Sodium 136 mmol/L (136-145); Total Protein 6.2 g/dL (6.4-8.2)
[2022-12-25] MEDS: VANCOMYCIN 2,000 MG in Normal Saline 500 ML 333.3333 MG IVPB (04:32)
[2022-12-25 04:41] LABS: COVID-19 PCR Negative (Negative); Influenza A PCR Negative (Negative); Influenza B PCR Negative (Negative); RSV PCR Negative (Negative)
[2022-12-25 04:52] LABS: Source Nasopharynx
[2022-12-25 05:00] LABS: Procalcitonin 0.1 ng/mL
[2022-12-25] MEDS: Normal Saline - Diluent 50 ML VIAL IJ (05:11)
[2022-12-25] MEDS: Omnipaque 350 MG/ML 100 ML BTL IJ (05:11)
--- NOTE | 2022-12-25 06:47 | NUR.NOTE ---
Nursing Note: resting, call sheth at bedside, pt aware need to give urine sample family member went to eat
--- NOTE | 2022-12-25 06:57 | DI.VRAD_ITS ---
Addendum created by Carlton Duggan MD on 12/25/2022 7:56:02 AM EDT: THIS REPORT CONTAINS FINDINGS THAT MAY BE CRITICAL TO PATIENT CARE. The findings were verbally communicated via telephone conference with HENRIK FLEMING at 7:55 AM EDT on 12/25/2022. The findings were acknowledged and understood. Initial report created on 12/25/2022 6:56:40 AM EDT: PROCEDURE INFORMATION: Exam: CT Abdomen And Pelvis With Contrast Exam date and time: 12/25/2022 4:58 AM Age: 82 years old Clinical indication: Other: Fever, distended, post op spinal surg; Prior surgery; Surgery date: 3-7 days post-operative; Surgery type: Lumbar surgery TECHNIQUE: Imaging protocol: Computed tomography of the abdomen and pelvis with contrast. Radiation optimization: All CT scans at this facility use at least one of these dose optimization techniques: automated exposure control; mA and/or kV adjustment per patient size (includes targeted exams where dose is matched to clinical indication); or iterative reconstruction. Contrast material: OMNI 350; Contrast volume: 100 ml; Contrast route: INTRAVENOUS (IV); COMPARISON: CT ABDOMEN PELVIS W 07/25/2021 10:40 AM FINDINGS: Lungs: The visualized lung ragland show mild bibasilar atelectasis. Liver: The liver is normal in size. There are no enhancing liver masses. Gallbladder and bile ducts: The gallbladder is normal. No gallstones are identified. Pancreas: The pancreas is normal. Spleen: The spleen is normal in size and density. 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 Kidneys and ureters: No hydronephrosis.There are multiple bilateral nonobstructing renal calculi, as large as 6 mm. Multiple bilateral simple appearing renal cysts are present as large size 2.9 cm. Stomach and bowel: There is no evidence of small bowel or colonic obstruction. There is moderate fecal stasis and mild gaseous distention of the colon, specially the ascending and transverse segments. There are some air-fluid levels suggestive of a diarrheal state. Appendix: A normal appendix is identified with an appendicular at the tip. No periappendiceal inflammatory changes. Intraperitoneal space: No free air. No significant fluid collection. Vasculature: There is moderate atherosclerotic calcification of the abdominal aorta and its branches without aneurysm. Lymph nodes: No enlarged retroperitoneal or mesenteric lymph nodes. Urinary bladder: The bladder is moderately distended with an air-fluid level. Reproductive: Unremarkable as visualized. Bones/joints: Multilevel degenerative disc disease without significant spinal canal stenosis. Recent laminectomies at L3, L4 and L5 with orthopedic instrumentation for posterior fusion. There are gas bubbles in the operative field of the may simply reflect postoperative changes. There is a small 15 mm collection with an air-fluid level in the spinal canal at L3-L4. There is fluid collection in the paraspinous muscles at the site of surgery. Soft tissues: See Bones/joints finding. IMPRESSION: 1. Mild gaseous distension of the colon with moderate fecal stasis and probable diarrheal state. 2. Moderately distended urinary bladder with an air-fluid level. In the absence of recent bladder instrumentation, this is suspicious for a urinary tract infection. 3. Status post recent laminectomy and posterior fusion from L3 -L5. Air and air-fluid levels in the operative field may simply reflect postoperative changes. However, correlate clinically as to the presence or absence of superimposed infection. 4. 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 5. Multiple bilateral renal cysts. 6. Multiple bilateral nonobstructive renal calculi. Dictated and Authenticated by: Carlton Duggan MD. Ordering:JOEL Francois MD
--- NOTE | 2022-12-25 07:19 | NUR.NOTE ---
Nursing Note: Pt resting comfortably, denies pain at this time, afebrile, VSS. Pt voided small amount to obtain urine specimen, sent. Pt requesting PO fluids, plan to F/U.
--- NOTE | 2022-12-25 07:21 | DI.VRAD_ITS ---
Addendum created by Carlton Duggan MD on 12/25/2022 7:57:27 AM EDT: THIS REPORT CONTAINS FINDINGS THAT MAY BE CRITICAL TO PATIENT CARE. The findings were verbally communicated via telephone conference with HENRIK FLEMING at 7:57 AM EDT on 12/25/2022. The findings were acknowledged and understood. Initial report created on 12/25/2022 7:21:07 AM EDT: PROCEDURE INFORMATION: Exam: CTA Chest With Contrast Exam date and time: 12/25/2022 4:58 AM Age: 82 years old Clinical indication: Shortness of breath and other: SOB, hypoxic, 3 days post surg, fever; Prior surgery; Surgery date: 6+ months; Surgery type: Open heart surgery; Patient HX: Lumbar surgery 3 days prior TECHNIQUE: Imaging protocol: Computed tomographic angiography of the chest with contrast. Exam focused on the arteries. 3D rendering (Not supervised by radiologist): MIP and/or 3D reconstructed images were created by the technologist. Radiation optimization: All CT scans at this facility use at least one of these dose optimization techniques: automated exposure control; mA and/or kV adjustment per patient size (includes targeted exams where dose is matched to clinical indication); or iterative reconstruction. Contrast material: OMNI 350; Contrast volume: 100 ml; Contrast route: INTRAVENOUS (IV); COMPARISON: CT CHEST WO 02/19/2021 1:08 PM FINDINGS: Pulmonary arteries: There are no filling defects in the pulmonary arteries to suggest pulmonary emboli. Aorta: There is no thoracic aortic aneurysm or dissection. Lungs: There is some tracheobronchomalacia, involving predominantly the distal trachea as well as the right and left mainstem bronchi (series 16, images [id number]). There are bibasilar dependent atelectatic changes. There is discoid atelectasis in the right middle lobe. There is dependent atelectasis in the left upper lobe along the major fissure. There is no evidence of focal pulmonary consolidation. Pleural spaces: Unremarkable. No pneumothorax. No pleural effusion. Heart: There are no pericardial fluid collections. Lymph nodes: No enlarged mediastinal or hilar lymph nodes are seen. Bones/joints: There has been a median sternotomy for coronary revascularization. Multilevel degenerative disc disease without significant spinal canal stenosis. Soft tissues: Unremarkable. IMPRESSION: 1. No evidence of pulmonary embolus. 2. Moderate tracheo-bronchomalacia. 3. Incomplete lung expansion and atelectatic changes as described above. 4. Status post median sternotomy. Dictated and Authenticated by: Carlton Duggan MD. Ordering:JOEL Francois MD
[2022-12-25 07:30] LABS: Bilirubin Negative (Negative); Blood Trace-intact (Negative); Clarity Clear (Clear); Glucose Negative (Negative); Ketones Negative (Negative); Leukocyte Esterase Negative (Negative); Nitrite Negative (Negative); pH 5.5 (5-8)
[2022-12-25] MEDS: Lidocaine 2% Jelly 11 ML SYR UR (07:41)
[2022-12-25 07:46] LABS: Bacteria Rare HPF (Negative); C & S Indicated? No; Casts Negative LPF (Negative); Crystals Negative HPF (Negative); Epithelial Cells Moderate HPF (Negative); Mucus Negative (Negative); WBC 0-2 HPF (0-5)
--- NOTE | 2022-12-25 07:47 | DI.VRAD_ITS ---
Addendum created by Carlton Duggan MD on 12/25/2022 7:56:56 AM EDT: THIS REPORT CONTAINS FINDINGS THAT MAY BE CRITICAL TO PATIENT CARE. The findings were verbally communicated via telephone conference with HENRIK FLEMING at 7:56 AM EDT on 12/25/2022. The findings were acknowledged and understood. Initial report created on 12/25/2022 7:47:30 AM EDT: PROCEDURE INFORMATION: Exam: CT Lumbar Spine Without Contrast Exam date and time: 12/25/2022 4:58 AM Age: 82 years old Clinical indication: Other: Fever, distended, post op spinal surg; Prior surgery; Surgery date: 3-7 days post-operative; Surgery type: Spinal surgery TECHNIQUE: Imaging protocol: Computed tomography of the lumbar spine without contrast. Radiation optimization: All CT scans at this facility use at least one of these dose optimization techniques: automated exposure control; mA and/or kV adjustment per patient size (includes targeted exams where dose is matched to clinical indication); or iterative reconstruction. COMPARISON: MR LUMBAR SPINE WO 08/25/2022 9:11 AM FINDINGS: Bones/joints: Will continue with the designation of the last intervertebral disc space as L5-S1, as on the comparison MRI. There has been no interval change in the chronic wedge compression fracture of T11. Stable mild grade 1 anterolisthesis of L4 on L5. There is multilevel degenerative disc disease without significant spinal canal stenosis. This is most pronounced at L1-L2. Recent laminectomies at L3, L4 and L5 with orthopedic instrumentation for posterior fusion. Soft tissues: There are gas bubbles in the operative field. There is a small 15 x 21 mm collection with an air-fluid level in the spinal canal at L3-L4. There is a fluid collection in the paraspinous muscles at the site of surgery. IMPRESSION: 1. Postoperative changes from L3 - L5. There is fluid and gas in the spinal canal, in the operative field and paraspinous muscles. This may simply reflect postoperative hematoma/seroma; however, infection may present a similar picture. Clinical correlation and follow-up is recommended as clinically indicated. 2. Multilevel degenerative disc disease without severe central spinal canal stenosis, most pronounced at L1-L2. Dictated and Authenticated by: Carlton Duggan MD. Ordering:JOEL Francois MD
--- NOTE | 2022-12-25 08:09 | NUR.NOTE ---
Nursing Note: Fay Catheter placed without difficulty, first attempt, draining clear yellow urine. Bladder scan prior to insertion ~ 800 ml; pt denied feeling bladder discomfort, denied pressure. Plan of care reviewed with pt, pt in agreement with catheter placement. Initial output [address] Simeon aware.
[2022-12-25] MEDS: Normal Saline 1,000 ML 125 ML IV (08:34)
--- NOTE | 2022-12-25 08:39 | ED.PROG_ITS ---
Date of service: 12/25/22 Time of Service: 08:39 Medical Decision Making I received signout on this 82-year-old male in the emergency department who is 3 dayspostop status post laminectomy and facetectomy at [facility]. He had taken acetaminophen 2 hours prior to arrival in the setting of a fever up to 102 ?F that occurred at 2 AM. His incision and drain sites since are reportedly clean dry and intact. He has had new urinary retention as he retained [address] scan was concerning for fluid and air in his lumbar piperacillin/tazobactam and vancomycin. He is pending consult with orthopedics at [facility] and likely transfer in the setting of postoperative fever. Labs significant for new leukocytosis with left shift. 9:20 AM I spoke with Dr. Jayy Lara From [facility] [place] who had spoken with his attending Dr. Cabrera. They were not concerned about a postoperative infection given that this would be unlikely at 3 days postop. They felt that his fever was likely secondary to his atelectasis or an inflammatory response from his surgery. They reported that his air-fluid level was to be expected and that his urinary retention was not uncommon based on the patient's age. Patient had no saddle anesthesia on Dr. Simeon's exam. On my reassessment patient was able to dorsi and plantarflex with 5 out of 5 strength bilaterally. He last took acetaminophen at 1:30 AM. He is also on outpatient hydromorphone. His [id number] is a nurse and reports that he is not mobilizing well and that she is concerned about him falling at home. As result we will have PT evaluate the patient but anticipate he will benefit from local hospitalization. Given no plan for any surgical intervention we will feed the patient. 10:52 AM Juan from PT is at bedside to evaluate the patient. 11:24 AM Juan from PT worked with patient and felt that he would benefit from placement in acute rehab given his requirement of a walker with assistance for ambulation. We will touch base with Renata from care management to determine whether or not patient could be placed today from the ED. 11:30 AM I spoke again with Renata from care management and advised her of physical therapy assessment. We will initiate referral process for acute rehab placement but feels that this is unlikely to happen on the weekend. I will reach out to Dr. Regalado again to advise him that the patient will likely require hospitalization. 11:38 AM I spoke again with Dr. Regalado who graciously agreed to accept the patient for hospitalization. Sign Out Sign Out Data: Sign Out Comment: Fever, recently discharged from [facility] for laminectomy. C oncern for postoperative infection. Follow-up on [facility] consult Last updated by Alessandro Simeon DO at 12/25/22 08:09 Discharge Plan Disposition Patient Disposition: Admit to [facility] Discharge Details Clinical Impression: Fever, Fever postop, Weakness Primary Care Provider: Sangita Rose ED Provider: Trevon Rose [place] Meds and New Rx's Prescriptions: No Action magnesium oxide 500 mg capsule 500 mg PO DAILY Qty: 90 3RF acetaminophen 500 mg tablet 1,000 mg PO TID PRN metoprolol succinate 25 mg tablet extended release 24 hr 25 mg PO DAILY Qty: 90 3RF primidone 50 mg tablet 150 mg PO QHS MDD 150 mg Qty: 270 3RF acetylcysteine [NAC] 600 mg capsule 600 mg PO BID Qty: 60 7RF aspirin 81 MG tablet,delayed release (DR/EC) 81 mg PO DAILY (DME) Aerochamber Plus Flow-Vu,S Msk 1 EACH spacer 1 ea Miscellaneous PRN polyethylene glycol 3350 [GlycoLax] 527 GM powder 17 g PO DAILY (DME) lancets [OneTouch Delica Lancets] 1 EACH misc 1 ea Miscellaneous DAILY Qty: 100 Rx Instructions: E11.9 to maintain A1C less than 7.0 albuterol sulfate [ProAir HFA] 8.5 GM HFA aerosol inhaler 1 - 2 puff Inhalation Q4-6H PRN Qty: 1 3RF Rx Instructions: DISPENSE ALBUTEROL INHALER BRAND COVERED BY INSURANCE cholecalciferol (vitamin D3) 25 mcg (1,000 unit) tablet 1,000 unit PO BID fluticasone furoate-vilanterol [Breo Ellipta] 100-25 mcg/dose blister with device 1 ea Inhalation DAILY Qty: 60 12RF Rx Instructions: [facility] Incruse Ellipta 62.5 mcg/actuation blister with device 62.5 mcg Inhalation DAILY Qty: 30 12RF (DME) nebulizer and accessories See Rx Instructions .Route .MEDSUPPLY Qty: 1 0RF Rx Instructions: As directed clotrimazole [Lotrimin AF (clotrimazole)] 1 % cream 1 applic TP BID Qty: 45 3RF Rx Instructions: Apply thin film to affected area until resolution (usually 4 weeks) + 3-4 days pantoprazole 20 mg tablet,delayed release (DR/EC) 20 mg PO DAILY Qty: 90 3RF Rx Instructions: Take 20 mg daily once daily in the morning at least 30-60 minutes before first meal of the day atorvastatin 80 mg tablet 80 mg PO DAILY Qty: 90 3RF (DME) Blood Glucose Test Strip See Rx Instructions .ROUTE .MEDSUPPLY Qty: 100 3RF Rx Instructions: As directed to check daily morning fasting blood glucose. No insulin. Dispense covered brand. celecoxib [Celebrex] 100 mg capsule 100 mg PO BID PRN (Reason: pain) Qty: 180 0RF albuterol sulfate 2.5 mg/0.5 mL solution for nebulization 2.5 mg Inhalation Q4-6H PRN Qty: 180 3RF gabapentin 300 mg capsule 300 mg PO TID Qty: 270 0RF citalopram 40 mg tablet 40 mg PO DAILY Qty: 90 3RF cyclobenzaprine 10 mg tablet 10 mg PO TID PRNQty: 20 0RF hydromorphone 2 mg tablet 2 mg PO Q4H PRN PRN sennosides [senna] 8.6 mg Tablet 8.6 mg PO BID PRN
[2022-12-25] MEDS: Acetaminophen 500 MG TAB 1000 MG PO (09:35)
[2022-12-25] MEDS: HYDROmorphone 2 MG TAB PO (09:36)
--- NOTE | 2022-12-25 10:13 | NUR.NOTE ---
Nursing Note: Pt received breakfast tray, enjoying, at home care provider at bedside, participating in cares.
--- NOTE | 2022-12-25 11:45 | PT.INIE ---
PT Notes Visit Reasons: On License Of [facility] Inpatient Physical Therapy Evaluation Date: December 25, 2022 Referring Doctor: Dr. Trevon Rose PT Orders: PT CONSULT: PT evaluate for functional mobility, ambulation capabilities Precautions: No bend lift or twist status post lumbar laminectomy fusion L3-5 Patient Profile/Admitting Diagnosis: Fever. ?82-year-old male in the emergency department who is 3 dayspostop status post laminectomy and facetectomy at [facility].? He had taken acetaminophen 2 hours prior to arrival in the setting of a fever up to 102 ?F that occurred at 2 AM.? His incision and drain? sites since are reportedly clean dry and intact.? He has had new urinary retention as he retained [address] scan was concerning for fluid and air in his lumbar piperacillin/tazobactam and vancomycin.? He is pending consult with orthopedics at [facility] and likely transfer in the setting of postoperative fever.? Labs significant for new leukocytosis with left shift. PMHX: Home Medications ?Medication ?Instructions ?Recorded ?Confirmed aspirin 81 mg tablet,delayed 81 mg PO DAILY 09/28/12 12/25/22 release ? ? ? inhalational spacing device ? 09/28/12 12/25/22 (Aerochamber Plus Flow-Vu,Small ? ? ? Mask) ? ? ? lancets 33 gauge (OneTouch Delica #100 ea 10/13/16 12/25/22 Lancets) ? ? ? polyethylene glycol 3350 17 17 g PO DAILY 10/13/16 12/25/22 gram/dose oral powder (GlycoLax) ? ? ? albuterol sulfate 90 mcg/actuation 1 - 2 puff inhalation Q4-6H PRN ##1 04/18/17 12/25/22 aerosol inhaler (ProAir HFA) ? ? ? magnesium oxide 500 mg capsule 500 mg PO DAILY #90 tab-caps 11/02/18 12/25/22 cholecalciferol (vitamin D3) 25 1,000 unit PO BID 11/01/19 12/25/22 mcg (1,000 unit) tablet ? ? ? acetaminophen 500 mg tablet 1,000 mg PO TID PRN 07/15/21 12/25/22 acetylcysteine 600 mg capsule (NAC) 600 mg PO BID #60 caps 10/20/21 12/25/22 fluticasone furoate 100 1 ea inhalation DAILY #60 ea 01/29/22 12/25/22 mcg-vilanterol 25 mcg/dose ? ? ? inhalation powder (Breo Ellipta) ? ? ? umeclidinium 62.5 mcg/actuation 62.5 mcg inhalation DAILY #30 ea 01/29/22 12/25/22 blister powder for inhalation ? ? ? (Incruse Ellipta) ? ? ? nebulizer and accessories #1 ea 04/16/22 12/25/22 clotrimazole 1 % topical cream 1 applic topical BID tinea #45 06/02/22 12/25/22 (Lotrimin AF (clotrimazole)) grams ? ? pantoprazole 20 mg tablet,delayed 20 mg PO DAILY #90 tab-caps 06/21/22 12/25/22 release ? ? ? cyclobenzaprine 10 mg tablet 10 mg PO TID PRN #20 tabs 07/21/22 12/25/22 atorvastatin 80 mg tablet 80 mg PO DAILY #90 tabs 10/13/22 12/25/22 blood sugar diagnostic (Blood #100 ea 10/13/22 12/25/22 Glucose Test strips) ? ? ? metoprolol succinate 25 mg 25 mg PO DAILY #90 tab-caps 10/21/22 12/25/22 tablet,extended release 24 hr ? ? ? primidone 50 mg tablet 150 mg PO QHS #270 tabs 10/21/22 12/25/22 albuterol sulfate 2.5 mg/0.5 mL 2.5 mg (0.5 mL) inhalation Q4-6H 11/10/22 12/25/22 solution for nebulization PRN #180 vials ? ? celecoxib 100 mg capsule (Celebrex) 100 mg PO BID PRN pain #180 caps 11/10/22 12/25/22 gabapentin 300 mg capsule 300 mg PO TID #270 caps 11/24/22 12/25/22 citalopram 40 mg tablet 40 mg PO DAILY #90 tab-caps 11/26/22 12/25/22 hydromorphone 2 mg tablet 2 mg PO Q4H PRN PRN 12/25/22 12/25/22 sennosides 8.6 mg tablet (senna) 8.6 mg PO BID PRN 12/25/22 12/25/22 Previous Rx's ?Medication ?Instructions ?Recorded albuterol sulfate 90 mcg/actuation 1 - 2 puff inhalation Q4-6H PRN ##1 04/18/17 aerosol inhaler (ProAir HFA) ? ? magnesium oxide 500 mg capsule 500 mg PO DAILY #90 tab-caps 11/02/18 acetylcysteine 600 mg capsule (NAC) 600 mg PO BID #60 caps 10/20/21 fluticasone furoate 100 1 ea inhalation DAILY #60 ea 01/29/22 mcg-vilanterol 25 mcg/dose ? ? inhalation powder (Breo Ellipta) ? ? umeclidinium 62.5 mcg/actuation 62.5 mcg inhalation DAILY #30 ea 01/29/22 blister powder for inhalation ? ? (Incruse Ellipta) ? ? nebulizer and accessories #1 ea 04/16/22 clotrimazole 1 % topical cream 1 applic topical BID tinea #45 06/02/22 (Lotrimin AF (clotrimazole)) grams ? pantoprazole 20 mg tablet,delayed 20 mg PO DAILY #90 tab-caps 06/21/22 release ? ? cyclobenzaprine 10 mg tablet 10 mg PO TID PRN #20 tabs 07/21/22 atorvastatin 80 mg tablet 80 mg PO DAILY #90 tabs 10/13/22 blood sugar diagnostic (Blood #100 ea 10/13/22 Glucose Test strips) ? ? metoprolol succinate 25 mg 25 mg PO DAILY #90 tab-caps 10/21/22 tablet,extended release 24 hr ? ? primidone 50 mg tablet 150 mg PO QHS #270 tabs 10/21/22 albuterol sulfate 2.5 mg/0.5 mL 2.5 mg (0.5 mL) inhalation Q4-6H 11/10/22 solution for nebulization PRN #180 vials ? celecoxib 100 mg capsule (Celebrex) 100 mg PO BID PRN pain #180 caps 11/10/22 gabapentin 300 mg capsule 300 mg PO TID #270 caps 11/24/22 citalopram 40 mg tablet 40 mg PO DAILY #90 tab-caps 11/26/22 ? Allergies Allergy/AdvReac Type Severity Reaction Status Date / Time codeine AdvReac Unknown ? 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) Most recent MRI 08/25/2022 showing stenosis; Spine consult 3Degenerative joint disease (DJD) of lumbar spine (Acute) Effusion, right knee (Acute) Arthritis of right glenohumeral joint (Acute) Degenerative joint disease of right knee (Acute) Depo-Medrol injection: 2Bronchiectasis (Acute) Adrenal nodule (Acute) Rib pain on left side (Acute) Trochanteric bursitis of both hips (Chronic) Non-alcoholic fatty liver disease (Chronic 09/29/12) Type 2 diabetes mellitus (Chronic) Dx: 10/2018Obesity (BMI 30-39.9) (Chronic) Advance directive in chart (Chronic 04/22/15) On-file with [facility] as of 04/22/2015 Sensorineural hearing loss, bilateral (Chronic 08/29/17) Osteoarthritis of knee (Chronic 08/13/13) Hypomagnesemia (Chronic 10/07/17) Hyperlipidemia, unspecified (Chronic 07/09/11) LDL GOAL 100 Gastroesophageal reflux disease (Chronic 07/09/11) Essential tremor (Chronic 07/27/11) Essential hypertension (Chronic 07/09/11) GOAL <130/80 Depression (Chronic 06/04/14) Long-term Celexa Rx Chronic obstructive pulmonary disease (COPD) (Chronic 09/29/12) MILD, 08/2012 PFTs FEV1 2.06 (70% pred and FVC), no response to bronchodilator; 11/17/15 bronchoscopy [facility]: NEG for [employer], fungus, & bacteria; cytology NEG for malignancy Cardiomyopathy (Chronic 04/10/12) BPH (benign prostatic hyperplasia) (Chronic 04/10/12) ASCVD (arteriosclerotic cardiovascular disease) (Chronic) S/p 5 vessel CABG 1995 Echo 09/27/2014 with normal LVEF Medical History? 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 Arthroplasty of knee Extraction of cataract Status post coronary artery bypass graft (~1995) Social History/Home Situation: Patient lives in multilevel home with . Has supportive children that live nearby. Current Functional Limitations: Bed mobility, transfer mobility, ambulation Equipment Owned/DME: Front wheel walker Subjective: Patient admits that he is not experiencing any significant pain which he rated 3/10. Feeling better than he was yesterday with regards to energy level. Is concerned with his overall functional ability and being unable to care for himself putting a great deal of stress on his . Does feel a little discomfort in the center of his low back but manageable. Objective: General Observation: Lying in bed, telemetry, IV left upper extremity, catheter Mental Status: Alert and oriented to person place and time Pain: 3/10 central low back Vital Signs: Monitored via nursing ROM: Right Upper Extremity: Within functional limits shoulder and elbow. Left Upper Extremity: Within functional limits shoulder and elbow. Right Lower Extremity: Patient performs heel slide to approximately 60 degrees hip flexion. Knee flexion 90 degrees, ankle range of motion within functional limits Left Lower Extremity: Patient performs heel slide to approximately 70 degrees of flexion, 95 degrees knee flexion and ankle range of motion within functional limits. Strength: Right Upper Extremity: Glenohumeral joint flexion, abduction, elbow flexion and extension 4/5. Good toeing stockings. Left Upper Extremity: Glenohumeral joint flexion, abduction, elbow flexion and extension 4/5. Good toeing stockings. Right Lower Extremity: Patient perform straight leg raise to 10 degrees limited due to pain with minimal lag. Knee flexion 4/5, knee extension 4 -/5, ankle dorsiflexion and plantarflexion 5/5, hip flexion 4 -/5. Left Lower Extremity: Patient perform straight leg raise to 15 degrees with pain and minimal lag. Hip flexion 4 -/5. Knee flexion 4 -/5, knee extension 4 -/5, ankle dorsiflexion and plantarflexion 5/5. Sensation: Patient reports intact sensation light touch bilateral lower extremities. Myotomes 5/5 ankle plantarflexion, dorsiflexion, great toe extension. Reports no saddle distribution of paresthesia. Bed Mobility/Transfers: Supine?sit: Mod assist x2 head of bed 40 degrees Sit?stand: Mod assist x1 to front wheel walker Stand?sit: Mod assist x1 from front wheel walker Gait: Ambulate with contact-guard and front wheel walker 60 feet. Patient had to rest periods. Denied any significant increased pain or shortness of breath. No lightheadedness reported. Balance: Static Sitting: Good Dynamic Sitting: Good Static Standing: Fair fair Dynamic Standing: Special Tests: Mobility Limitations Standardized Measure [facility] AM-PAC 6 clicks Basic Mobility Inpatient Short Form: Raw Score: 13 CMS Score: 65% Informed Consent/Education: Patient instructed in purpose of PT consult and plan of care. Assessment: Patient is a 82 maleyear old referred to physical therapy services with the diagnosis of status post lumbar fusion. Patient presents with clinical signs and symptoms consistent with admitting diagnosis that resulted to mobility limitations, gait instability, generalized weakness and overall ADL decline as demonstrated by the following impairment level findings:, Patient presents with clinical signs and symptoms consistent with current/admitting diagnoses that have resulted to mobility limitations, gait instability, generalized weakness, and overall ADL decline as demonstrated by the following impairment level findings: 1.? Decreased strength to B LE major muscle groups 2.? Impaired standing balance 3.? Impaired activity tolerance Impairments are contributing to the following functional limitations: 1.? Difficulty with ambulation without assistive device 2.? Increased completion time for mobility ADL performance 3.? Increased risk for falls 4.? Difficulty with managing steps alone safely At this point do not feel patient is safe for return to home as placement in senior care facility is unavailable at this time. Do recommend continued services via hospital stay. Patient is assessed as a 28340 moderate complexity based on the following: History: 82-year-old male with past medical history as indicated above Examination: Demonstrable impairment in strength, balance, and mobility level with underlying impairments and functional limitations as exhibited above as well as deficit score of 65% utilizing the [facility] Mobility Inpatient Short Form Presentation: Evolving Decision Makin moderate complexity Goals: Goals X1 week 1. Supine-Sit independent 2. Sit-Supine independent 3. Sit-Stand independent 4. Stand-Sit independent 5. Bed-Chair independent 6. Chair-Bed independent 7. Independent gait on level surface with use of least restrictive device for at least 300 feet without report of pain nor dyspnea maintaining nonweightbearing status 8. Independent stair negotiation while holding onto bilateral rails for at least 10 steps without report of pain nor dyspnea maintaining nonweightbearing status 9. Independent with home exercise program 10. Good static and dynamic standing balance/tolerance Plan of Care/Treatment Plan: 1-2x/day, 7 days/week x 1 week. Plan of care has been reviewed with the [employer] providing the service under Physical Therapy direction. Initiate Physical Therapy intervention for pain management as needed, strengthening, bed mobility, transfers, gait, stairs, balance training, and use of assistive device. DISCHARGE RECOMMENDATIONS: [] [] Home with no services [] [] Home with services [specify] [] Home with outpatient PT [] X SNF for continued rehabilitation [] [facility] [] [] SNF versus LTC based on ability to participate and progress [] TREATMENT CODE/TIME: [id number] 40 minutes 10:45-11:25 Gonzales Patterson PT, DPT Disclaimer: This note was created using [employer] voice recognition software. It was reviewed for major content. However, there may be multiple small discrepancies and errors due to the voice recognition aspects of the software.
--- NOTE | 2022-12-25 12:50 | W.EDPROG ---
Date of service: 12/25/22 Time of Service: 12:50 Medical Decision Making I met with the patient and he confirms that he is a full code. Sign Out Sign Out Data: Sign Out Comment: Fever, recently discharged from [facility] for laminectomy. Concern for postoperative infection. Follow-up on [facility] consult Last updated by Alessandro Simeon DO at 12/25/22 08:09 Discharge Plan Disposition Patient Disposition: Admit to [facility] Discharge Details Clinical Impression: Fever, Fever postop, Weakness Primary Care Provider: Sangita Rose ED Provider: Trevon Rose [place] Meds and New Rx's Prescriptions: No Action magnesium oxide 500 mg capsule 500 mg PO DAILY Qty: 90 3RF acetaminophen 500 mg tablet 1,000 mg PO TID PRN metoprolol succinate 25 mg tablet extended release 24 hr 25 mg PO DAILY Qty: 90 3RF primidone 50 mg tablet 150 mg PO QHS MDD 150 mg Qty: 270 3RF acetylcysteine [NAC] 600 mg capsule 600 mg PO BID Qty: 60 7RF aspirin 81 MG tablet,delayed release (DR/EC) 81 mg PO DAILY (DME) Aerochamber Plus Flow-Vu,S Msk 1 EACH spacer 1 ea Miscellaneous PRN polyethylene glycol 3350 [GlycoLax] 527 GM powder 17 g PO DAILY (DME) lancets [OneTouch Delica Lancets] 1 EACH misc 1 ea Miscellaneous DAILY Qty: 100 Rx Instructions: E11.9 to maintain A1C less than 7.0 albuterol sulfate [ProAir HFA] 8.5 GM HFA aerosol inhaler 1 - 2 puff Inhalation Q4-6H PRN Qty: 1 3RF Rx Instructions: DISPENSE ALBUTEROL INHALER BRAND COVERED BY INSURANCE cholecalciferol (vitamin D3) 25 mcg (1,000 unit) tablet 1,000 unit PO BID fluticasone furoate-vilanterol [Breo Ellipta] 100-25 mcg/dose blister with device 1 ea Inhalation DAILY Qty: 60 12RF Rx Instructions: [facility] Incruse Ellipta 62.5 mcg/actuation blister with device 62.5 mcg Inhalation DAILY Qty: 30 12RF (DME) nebulizer and accessories See Rx Instructions .Route .MEDSUPPLY Qty: 1 0RF Rx Instructions: As directed clotrimazole [Lotrimin AF (clotrimazole)] 1 % cream 1 applic TP BID Qty: 45 3RF Rx Instructions: Apply thin film to affected area until resolution (usually 4 weeks) + 3-4 days pantoprazole 20 mg tablet,delayed release (DR/EC) 20 mg PO DAILY Qty: 90 3RF Rx Instructions: Take 20 mg daily once daily in the morning at least 30-60 minutes before first meal of the day atorvastatin 80 mg tablet 80 mg PO DAILY Qty: 90 3RF (DME) Blood Glucose Test Strip See Rx Instructions .ROUTE .MEDSUPPLY Qty: 100 3RF Rx Instructions: As directed to check daily morning fasting blood glucose. No insulin. Dispense covered brand. celecoxib [Celebrex] 100 mg capsule 100 mg PO BID PRN (Reason: pain) Qty: 180 0RF albuterol sulfate 2.5 mg/0.5 mL solution for nebulization 2.5 mg Inhalation Q4-6H PRN Qty: 180 3RF gabapentin 300 mg capsule 300 mg PO TID Qty: 270 0RF citalopram 40 mg tablet 40 mg PO DAILY Qty: 90 3RF cyclobenzaprine 10 mg tablet 10 mg PO TID PRNQty: 20 0RF hydromorphone 2 mg tablet 2 mg PO Q4H PRN PRN sennosides [senna] 8.6 mg Tablet 8.6 mg PO BID PRN
[2022-12-25] MEDS: ACETAMINOPHEN 1,000 MG/100 ML BTL 400 MG IVPB (14:13)
[2022-12-25] MEDS: HYDROmorphone 2 MG/ML SYR IVP (14:13)
[2022-12-25] MEDS: Gabapentin 300 MG CAP PO ×2 (14:13→21:28)
[2022-12-25] MEDS: Methylnaltrexone 12 MG/0.6 ML VIAL SC (14:13)
[2022-12-25] MEDS: Enoxaparin 40 MG/0.4 ML SYR SC (17:58)
[2022-12-25 18:53] LABS: Lab Add On Test DONE
[2022-12-25 19:10] LABS: C-Reactive Protein 18.77 mg/dL (0.0-0.3)
--- NOTE | 2022-12-25 19:36 | HPE_ITS ---
Date of service: 12/25/22 Time of Service: 14:00 Assessment and Plan Assessment and plan (1) Fever: Status: Acute Assessment and plan: Post op fever - tylenol for fever [facility] orthopedics does not recommend abx Imaging completed and sent to [facility] BC pending Procalcitonin negative Fay catheter placed - urine negative Repeat cbc tomorrow Trend CRP Monitor VS (2) S/P laminectomy: Status: Acute Assessment and plan: 3d post op laminectomy @ [facility] ortho consulted - do not recommend abx; films were pushed and viewed; see ED note Weak, moves all extr, no saddle anesthesia [facility] not concerned re post op infection Consider MRI (3) Weakness: Status: Acute Assessment and plan: Assessed by PT - unable to go home safely, should be placed for rehab, patient is in agreement with this plan Care mgrs working on referrals (4) Constipation: Status: Acute Assessment and plan: No BM reported for 4d Taking hydromorphone Relistor Lara senna and miralax (5) Essential hypertension: Status: Chronic Assessment and plan: Stable, continue home meds (6) Gastroesophageal reflux disease: Status: Chronic Assessment and plan: Stable, continue home meds Qualifiers: Esophagitis presence: esophagitis presence not specified Qualified Code(s): K21.9 - Gastro-esophageal reflux disease without esophagitis (7) DVT prophylaxis: Status: Acute Assessment and plan: Enoxaparin (8) Discharge planning issues: Status: Acute Assessment and plan: SNF Referrals sent by care mgt Discussed with Dr Regalado History of Present Illness History of Present Illness Chief Complaint: Fever, weak Narrative: This is an 82-year-old male patient who presented to [facility] with over 1 year back pain rating to his lower extremities in the setting of severe stenosis from L3-L5 with a degenerative spine in the low left the cyst at L4-L5. He failed to improve despite nonoperative treatment elected to undergo surgery. He was admitted to [facility] on 12/22/2022 and underwent L3-L5 posterolateral fusion, L3 L5 laminectomy with medial fasciotomies and foraminotomies, pedicle screw instrumentation L3-L5. Local bone grafting. He was allowed out of bed and was doing well on postop day 3 and he was discharged to home. He was home for less than 4 hours when he developed fever and weakness and was unable to ambulate. He presented to the [facility] emergency department he had a white count of 13.4 H&H of 11 and 35 sodium 136 potassium 4 and a negative procalcitonin. He had a CT of the abdomen and pelvis with contrast which showed mild gaseous distention of the colon with moderate fecal stasis and probable diarrheal state, moderately distended urinary bladder with air-fluid level suspicious of a urinary tract infection, status post recent laminectomy and posterior fusion L3 L5 with air and air-fluid levels in the op field which could be normal postop changes or an infection, stable 12 mm angio my lipoma of the left adrenal, multiple bilateral renal cysts, multiple bilateral nonobstructive renal calculi, he had a CT of his chest with no evidence of pulmonary embolus, moderate tracheobronchial malacia, incomplete lung expansion atelectatic changes as described, status post median sternotomy. The ED provider consulted with [facility] orthopedics Jayy Lara MD who had spoken with his attending Dr. Cabrera. They were not concerned about a postop infection given that this would be unlikely at 3 days postop. They felt that his fever was likely secondary to his atelectasis or an inflammatory response of his surgery. They reported that his air-fluid level was to be expected and that his urinary retention was not uncommon based on the patient's age. They do not recommend antibiotics at this time. Patient has no saddle anesthesia. Patient was able to dorsi and plantarflex with 5 out of 5 strength bilateral. His last took acetaminophen at 0130 hrs. He did not have a fever in the emergency department. He is taking outpatient hydromorphone orally. He was not able to mobilize well at home and they are concerned about him falling. As result PT evaluated the patient in the ED and found that he is not safe to go home. He is placed on observation status pending placement at a rehab facility. The patient is willing to go to rehab. 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) Most recent MRI 08/25/2022 showing stenosis; Spine consult 11/01/2022 Degenerative joint disease (DJD) of lumbar spine (Acute) Effusion, right knee (Acute) Arthritis of right glenohumeral joint (Acute) Degenerative joint disease of right knee (Acute) Depo-Medrol injection: 05/07/2022 Bronchiectasis (Acute) Adrenal nodule (Acute) Rib pain on left side (Acute) Trochanteric bursitis of both hips (Chronic) Non-alcoholic fatty liver disease (Chronic 09/29/12) Type 2 diabetes mellitus (Chronic) Dx: 10/2018 Obesity (BMI 30-39.9) (Chronic) Advance directive in chart (Chronic 04/22/15) On-file with [facility] as of 04/22/2015 Sensorineural hearing loss, bilateral (Chronic 08/29/17) Osteoarthritis of knee (Chronic 08/13/13) Hypomagnesemia (Chronic 10/07/17) Hyperlipidemia, unspecified (Chronic 07/09/11) LDL GOAL 100 Gastroesophageal reflux disease (Chronic 07/09/11) Essential tremor (Chronic 07/27/11) Essential hypertension (Chronic 07/09/11) GOAL <130/80 Depression (Chronic 06/04/14) Long-term Celexa Rx Chronic obstructive pulmonary disease (COPD) (Chronic 09/29/12) MILD, 08/2012 PFTs FEV1 2.06 (70% pred and FVC), no response to bronchodilator; 11/17/15 bronchoscopy [facility]: NEG for Af[employer], fungus, & bacteria; cytology NEG for malignancy Cardiomyopathy (Chronic 04/10/12) BPH (benign prostatic hyperplasia) (Chronic 04/10/12) ASCVD (arteriosclerotic cardiovascular disease) (Chronic) S/p 5 vessel CABG 1995 Echo 09/27/2014 with normal LVEF Medical History Cataract 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 Essential tremor Heart disease Hypertension Sister Hypertensive disorder, systemic arterial Heart disease Brother , [place] at age 78. Heart disease Essential tremor Brother Heart disease Daughter Essential tremor Social History Smoking/Tobacco Use Status: Former Tobacco Use Tobacco: How many years used: 30 Smoking risk assessment performed?: Yes Alcohol Intake: never Drug use: Never Substance use type: does not use Adopted: No Caregiver/Support person: No Foster care: No Household members: spouse Housing: house Number of Children: 7 number of grandchildren: 25 Communication Needs: Hard of Hearing Education Level: high school Do you need help understanding health information?: Rarely current occupation: [employer] Pets and animals: Yes Pets and animals: dog(s) Sexually active: No Do you think of yourself as: straight/heterosexual Current gender identity: male What is your relationship status?: How often do you talk on the phone with friends or family?: three or more times per week How often do you get together with friends or relatives?: once per week Do you belong to any clubs or organized social groups?: yes Panel score (0-1 are the most socially isolated patients): 3 What type of physical activity do you participate in: walking and other Details: House work Duration: 15-30 minutes/day Frequency: 5-6 times per week Lindy/Hoahaoism: Religious Seatbelt use: always Drive intox or ride w/intox test car driver: No Water heater temp set <120 deg: Yes Working smoke detector in home: Yes Fire extinguisher in home: Yes Carbon monox detector in home: Yes Do you feel safe at home: Yes Do you feel safe in your relationship?: Yes Additional Social history: He has 5 step-children in addition to 3 biological. Meds Allergies and Home Medications Allergies Allergy/AdvReac Type Severity Reaction Status Date / Time codeine AdvReac Unknown Verified 12/10/22 09:59 Home Medications Medication Instructions Recorded Confirmed Type aspirin 81 mg tablet,delayed 81 mg PO DAILY 09/28/12 12/25/22 History release inhalational spacing device 09/28/12 12/25/22 History (Aerochamber Plus Flow-Vu,Small Mask) lancets 33 gauge (OneTouch Delica #100 ea 10/13/16 12/25/22 History Lancets) polyethylene glycol 3350 17 17 g PO DAILY 10/13/16 12/25/22 History gram/dose oral powder (GlycoLax) albuterol sulfate 90 mcg/actuation 1 - 2 puff inhalation Q4-6H PRN ##1 04/18/17 12/25/22 Rx aerosol inhaler (ProAir HFA) magnesium oxide 500 mg capsule 500 mg PO DAILY #90 tab-caps 11/02/18 12/25/22 Rx cholecalciferol (vitamin D3) 25 1,000 unit PO BID 11/01/19 12/25/22 History mcg (1,000 unit) tablet acetaminophen 500 mg tablet 1,000 mg PO TID PRN 07/15/21 12/25/22 History acetylcysteine 600 mg capsule (NAC) 600 mg PO BID #60 caps 10/20/21 12/25/22 Rx fluticasone furoate 100 1 ea inhalation DAILY #60 ea 01/29/22 12/25/22 Rx mcg-vilanterol 25 mcg/dose inhalation powder (Breo Ellipta) umeclidinium 62.5 mcg/actuation 62.5 mcg inhalation DAILY #30 ea 01/29/22 12/25/22 Rx blister powder for inhalation (Incruse Ellipta) nebulizer and accessories #1 ea 04/16/22 12/25/22 Rx clotrimazole 1 % topical cream 1 applic topical BID tinea #45 06/02/22 12/25/22 Rx (Lotrimin AF (clotrimazole)) grams pantoprazole 20 mg tablet,delayed 20 mg PO DAILY #90 tab-caps 06/21/22 12/25/22 Rx release cyclobenzaprine 10 mg tablet 10 mg PO TID PRN #20 tabs 07/21/22 12/25/22 Rx atorvastatin 80 mg tablet 80 mg PO DAILY #90 tabs 10/13/22 12/25/22 Rx blood sugar diagnostic (Blood #100 ea 10/13/22 12/25/22 Rx Glucose Test strips) metoprolol succinate 25 mg 25 mg PO DAILY #90 tab-caps 10/21/22 12/25/22 Rx tablet,extended release 24 hr primidone 50 mg tablet 150 mg PO QHS #270 tabs 10/21/22 12/25/22 Rx albuterol sulfate 2.5 mg/0.5 mL 2.5 mg (0.5 mL) inhalation Q4-6H 11/10/22 12/25/22 Rx solution for nebulization PRN #180 vials celecoxib 100 mg capsule (Celebrex) 100 mg PO BID PRN pain #180 caps 11/10/22 12/25/22 Rx gabapentin 300 mg capsule 300 mg PO TID #270 caps 11/24/22 12/25/22 Rx citalopram 40 mg tablet 40 mg PO DAILY #90 tab-caps 11/26/22 12/25/22 Rx hydromorphone 2 mg tablet 2 mg PO Q4H PRN PRN 12/25/22 12/25/22 History sennosides 8.6 mg tablet (senna) 8.6 mg PO BID PRN 12/25/22 12/25/22 History Exam Narrative Exam Narrative: 1.Const: Well-nourished, Well-developed, appearing stated age 2.Eyes: PERRL, no conjunctival injection, and symmetrical lids. 3.ENT: Atraumatic external nose and ears. Moist MM. Neck: Symmetric, trachea midline, No thyromegaly. 4.CVS: +S1/S2, No murmurs or gallops. Peripheral pulses 2+ and equal in all extremities. Brisk capillary refill in all extremities. 5.RESP: Unlabored respiratory effort. Minimal crackles at the bases. 6.GI: Soft, mildly distended, no guarding or rebound. 7.MSK: Normocephalic/Atraumatic, Extremities w/o deformity or ttp No cyanosis or clubbing, Normal movement of all extremities. No saddle anesthesia. Normal saddle and rectal sensation. Postoperative surgical sites are clean dry and intact with no redness erythema or drainage or discharge or warmth. 8.Skin: Warm, Dry. No rashes or lesions. 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 Sensation grossly intact, no focal neurologic deficits. 10.Psych: (AAO) x3. Appropriate mood and affect Results Labs 12/25/22 03:53 12/25/22 03:53 Labs: Laboratory Results - last 24 hr 12/25/22 12/25/22 12/25/22 03:50 03:52 03:53 WBC RBC Hgb Hct MCV MCH MCHC RDW Plt Count MPV Immature Gran % Neutrophils % Band Neutrophils % Lymphocytes % Atypical Lymphs % Monocytes % Eosinophils % Basophils % Metamyelocytes % Myelocytes % Promyelocytes % Other Cells % Nucleated RBC % Absolute Neutrophils Absolute Lymphocytes Absolute Monocytes Absolute Eosinophils Absolute Basophils RBC Morphology Polychromasia Hypochromasia Poikilocytosis Basophilic Stippling Anisocytosis Microcytosis Macrocytosis Spherocytes Tear Drop Cells Ovalocytes Stomatocytes [place] Bodies Darryl Cells/Echinocytes Acanthocytes (Spur) Schistocytes PT 10.7 INR 1.1 APTT 35.6 H VBG Lactate Sodium Potassium Chloride Carbon Dioxide Anion Gap BUN Creatinine Est GFR (CKD-EPI 2020) Glucose Calcium Magnesium Total Bilirubin AST ALT Alkaline Phosphatase C-Reactive Protein 18.77 H Total Protein Albumin Procalcitonin 0.1 Urine Color Urine Clarity Urine pH Ur Specific [place] Urine Protein Urine Ketones Urine Blood Urine Nitrite Urine Bilirubin Urine Urobilinogen Ur Leukocyte Esterase Urine RBC Urine WBC Ur Epithelial Cells Urine Crystals Urine Bacteria Urine Casts Urine Mucus Ur Culture Indicated? Urine Glucose COVID-19 Source SARS-CoV-2 (PCR) Influenza Type A (PCR) Influenza Type B (PCR) RSV (PCR) Add-On Test Request 12/25/22 12/25/22 12/25/22 03:53 03:53 03:53 WBC RBC Hgb Hct MCV MCH MCHC RDW Plt Count MPV Immature Gran % Neutrophils % Band Neutrophils % Lymphocytes % Atypical Lymphs % Monocytes % Eosinophils % Basophils % Metamyelocytes % Myelocytes % Promyelocytes % Other Cells % Nucleated RBC % Absolute Neutrophils Absolute Lymphocytes Absolute Monocytes Absolute Eosinophils Absolute Basophils RBC Morphology Polychromasia Hypochromasia Poikilocytosis Basophilic Stippling Anisocytosis Microcytosis Macrocytosis Spherocytes Tear Drop Cells Ovalocytes Stomatocytes [place] Bodies [place] Cells/Echinocytes Acanthocytes (Spur) Schistocytes PT INR APTT VBG Lactate 1.2 Sodium 136 Potassium 4.0 Chloride 100 Carbon Dioxide 29.8 Anion Gap 6.2 BUN 16 Creatinine 1.0 Est GFR (CKD-EPI 2020) 74.21 Glucose 195 H Calcium 8.7 Magnesium Total Bilirubin 1.2 H AST 21 ALT 15 L Alkaline Phosphatase 82 C-Reactive Protein Total Protein 6.2 L Albumin 3.0 L Procalcitonin Urine Color Urine Clarity Urine pH Ur Specific [place] Urine Protein Urine Ketones Urine Blood Urine Nitrite Urine Bilirubin Urine Urobilinogen Ur Leukocyte Esterase Urine RBC Urine WBC Ur Epithelial Cells Urine Crystals Urine Bacteria Urine Casts Urine Mucus Ur Culture Indicated? Urine Glucose COVID-19 Source Nasopharynx SARS-CoV-2 (PCR) Negative Influenza Type A (PCR) Negative Influenza Type B (PCR) Negative RSV (PCR) Negative Add-On Test Request 12/25/22 12/25/22 12/25/22 03:53 07:20 11:37 WBC 13.41 H Cancelled RBC 3.75 L Cancelled Hgb 11.9 L Cancelled Hct 35.2 L Cancelled MCV 94 Cancelled MCH 31.7 Cancelled MCHC 33.8 Cancelled RDW 13.0 Cancelled Plt Count 128 L Cancelled MPV 9.7 Cancelled Immature Gran % 0.6 Cancelled Neutrophils % 83.1 Cancelled Band Neutrophils % Cancelled Lymphocytes % 5.5 Cancelled Atypical Lymphs % Cancelled Monocytes % 9.9 Cancelled Eosinophils % 0.7 Cancelled Basophils % 0.2 Cancelled Metamyelocytes % Cancelled Myelocytes % Cancelled Promyelocytes % Cancelled Other Cells % Cancelled Nucleated RBC % 0.0 Cancelled Absolute Neutrophils 11.14 H Cancelled Absolute Lymphocytes 0.74 L Cancelled Absolute Monocytes 1.33 H Cancelled Absolute Eosinophils 0.09 Cancelled Absolute Basophils 0.03 Cancelled RBC Morphology Cancelled Polychromasia Cancelled Hypochromasia Cancelled Poikilocytosis Cancelled Basophilic Stippling Cancelled Anisocytosis Cancelled Microcytosis Cancelled Macrocytosis Cancelled Spherocytes Cancelled Tear Drop Cells Cancelled Ovalocytes Cancelled Stomatocytes Cancelled [place] Bodies Cancelled [place] Cells/Echinocytes Cancelled Acanthocytes (Spur) Cancelled Schistocytes Cancelled PT INR APTT VBG Lactate Sodium Potassium Chloride Carbon Dioxide Anion Gap BUN Creatinine Est GFR (CKD-EPI 2020) Glucose Calcium Magnesium Total Bilirubin AST ALT Alkaline Phosphatase C-Reactive Protein Total Protein Albumin Procalcitonin Urine Color Yellow Urine Clarity Clear Urine pH 5.5 Ur Specific [place] 1.010 Urine Protein Negative Urine Ketones Negative Urine Blood Trace-intact H Urine Nitrite Negative Urine Bilirubin Negative Urine Urobilinogen 1.0 H Ur Leukocyte Esterase Negative Urine RBC 3-5 H Urine WBC 0-2 Ur Epithelial Cells Moderate Urine Crystals Negative Urine Bacteria Rare Urine Casts Negative Urine Mucus Negative Ur Culture Indicated? No Urine Glucose Negative COVID-19 Source SARS-CoV-2 (PCR) Influenza Type A (PCR) Influenza Type B (PCR) RSV (PCR) Add-On Test Request 12/25/22 12/25/22 12/25/22 11:59 12:00 18:53 WBC RBC Hgb Hct MCV MCH MCHC RDW Plt Count MPV Immature Gran % Neutrophils % Band Neutrophils % Lymphocytes % Atypical Lymphs % Monocytes % Eosinophils % Basophils % Metamyelocytes % Myelocytes % Promyelocytes % Other Cells % Nucleated RBC % Absolute Neutrophils Absolute Lymphocytes Absolute Monocytes Absolute Eosinophils Absolute Basophils RBC Morphology Polychromasia Hypochromasia Poikilocytosis Basophilic Stippling Anisocytosis Microcytosis Macrocytosis Spherocytes Tear Drop Cells Ovalocytes Stomatocytes [place] Bodies Darryl Cells/Echinocytes Acanthocytes (Spur) Schistocytes PT INR APTT VBG Lactate Sodium Cancelled Potassium Cancelled Chloride Cancelled Carbon Dioxide Cancelled Anion Gap Cancelled BUN Cancelled Creatinine Cancelled Est GFR (CKD-EPI 2020) Cancelled Glucose Cancelled Calcium Cancelled Magnesium Cancelled Total Bilirubin Cancelled AST Cancelled ALT Cancelled Alkaline Phosphatase Cancelled C-Reactive Protein Total Protein Cancelled Albumin Cancelled Procalcitonin Urine Color Urine Clarity Urine pH Ur Specific [place] Urine Protein Urine Ketones Urine Blood Urine Nitrite Urine Bilirubin Urine Urobilinogen Ur Leukocyte Esterase Urine RBC Urine WBC Ur Epithelial Cells Urine Crystals Urine Bacteria Urine Casts Urine Mucus Ur Culture Indicated? Urine Glucose COVID-19 Source SARS-CoV-2 (PCR) Influenza Type A (PCR) Influenza Type B (PCR) RSV (PCR) Add-On Test Request DONE Last Vital Signs Temp 37.1 C 12/25/22 15:30 Pulse 94 H 12/25/22 15:30 Resp 18 12/25/22 15:30 BP 120/77 12/25/22 15:30 Pulse Ox 90 L 12/25/22 15:30 Time Spent Time spent with Patient: 55-74 minutes Time was spent: preparing to see the patient(eg.review tests), obtaining and/or reviewing separately otained hiistory, ordering medications,tests, procedures, referring, communicating with other health chronic care nurse, indepentently interpreting results, counseling the patient and care coordination
[2022-12-25] MEDS: Senna TAB 1 TAB PO (21:28)
[2022-12-25] MEDS: Cholecalciferol (Vitamin D3) 1,000 UNIT TAB 1000 UNITS PO (21:28)
[2022-12-25] MEDS: Primidone 50 MG TAB PO (21:28)
[2022-12-25] MEDS: Budesonide/Formoterol 80/4.5 6.9 GM 60 PUFF INH IH (21:28)
[2022-12-25] MEDS: Celecoxib 100 MG CAP PO (22:58)
[2022-12-26] VITALS (9 sets, daily range): BP systolic 118–146; BP diastolic 71–88; PULSE 63–91; RESP 18–20; TEMP 36.6–37.8; O2SAT 91–96
[2022-12-26 06:51] LABS: Magnesium 1.6 mg/dL (1.8-2.4)
[2022-12-26 06:53] LABS: ALT 17 U/L (16-63); AST 28 U/L (15-37); Albumin 2.5 g/dL (3.4-5.0); Alkaline Phosphatase 80 U/L (46-116); Anion Gap 7.8 mmol/L (3-11); BUN 14 mg/dL (7-18); Bilirubin, Total 1.1 mg/dL (0.2-1.0); C-Reactive Protein 23.41 mg/dL (0.0-0.3); CO2 26.2 mmol/L (21.0-32.0); CREATININE 0.8 mg/dL (0.70-1.30); Calcium 8.2 mg/dL (8.5-10.1); Chloride 100 mmol/L (98-107); Estimated GFR 87.27 (mL/min/1.73m2); Glucose 158 mg/dL (74-106); Potassium 3.7 mmol/L (3.5-5.1); Sodium 134 mmol/L (136-145); Total Protein 5.8 g/dL (6.4-8.2)
[2022-12-26 07:23] LABS: Abs Immature Grans 0.06 10^3/uL (0.0-0.06); Absolute Basophil Count 0.02 10^3/uL (0.0-0.2); Absolute Eosinophil Count 0.14 10^3/uL (0.0-0.7); Absolute Lymphocyte Count 0.99 10^3/uL (1.2-3.4); Absolute Monocyte Count 1.11 10^3/uL (0.1-0.8); Absolute Neutrophil Count 8.59 10^3/uL (1.2-6.7); Basophils % 0.2; Eosinophils % 1.3; HCT 42.2 % (40.0-50.0); HGB 14.5 g/dL (13.5-17.5); Immature Grans % 0.5; Lymphocytes % 9.1; MCH 31.6 pg (27.0-33.0); MCHC 34.4 % (32.0-36.0); MCV 92 fL (80-95); MPV 10.4 fL (8.0-11.0); Monocytes % 10.2; Neutrophils % 78.7; Platelet Count 107 10^3/uL (130-400); RBC 4.59 10^6/uL (4.36-5.78); RDW 12.8 % (11.8-14.1); RDW-SD 43.2 fL; WBC 10.91 10^3/uL (4.4-10.8)
[2022-12-26] MEDS: Atorvastatin 40 MG TAB 80 MG PO (07:54)
[2022-12-26] MEDS: Polyethylene Glycol 3350 17 GM PACKET PO (07:54)
[2022-12-26] MEDS: Magnesium Oxide 400 MG TAB PO (07:54)
[2022-12-26] MEDS: Gabapentin 300 MG CAP PO ×3 (07:54→20:33)
[2022-12-26] MEDS: Pantoprazole 20 MG TABCR PO (07:55)
[2022-12-26] MEDS: Citalopram 20 MG TAB 40 MG PO (07:55)
[2022-12-26] MEDS: Aspirin E.C. 81 MG TABEC PO (07:55)
[2022-12-26] MEDS: Senna TAB 1 TAB PO ×2 (07:55→20:32)
[2022-12-26] MEDS: Metoprolol CR 25 MG TABCR PO (07:55)
[2022-12-26] MEDS: Cholecalciferol (Vitamin D3) 1,000 UNIT TAB 1000 UNITS PO ×2 (07:56→20:32)
[2022-12-26] MEDS: Umeclidinium 7 CAP INHALER IH (08:33)
[2022-12-26] MEDS: Budesonide/Formoterol 80/4.5 6.9 GM 60 PUFF INH IH ×2 (08:34→19:14)
[2022-12-26] MEDS: ACETAMINOPHEN 1,000 MG/100 ML BTL 400 MG IVPB ×2 (08:48→20:34)
[2022-12-26] MEDS: MAGNESIUM SULFATE 2 GM/50 ML BAG IVPB (10:12)
--- NOTE | 2022-12-26 11:52 | PT.INTREAT ---
PT Notes Visit Reasons: Postop fever; possible perispinal abscess Inpatient Physical Therapy Treatment Note [facility] Date: 12/26/22 SUBJECTIVE:I feel better now that I am sitting up. Pt c/o weakness but willing to work with PT OBJECTIVE: [] PAIN: 4/10 BED MOBILITY/TRANSFERS pt seated in recliner Sit-stand: CGA Stand-sit: CGA GAIT Assistive Device: FWW Weight bearing: full Assist: CGA Distance: approx 100' ASSESSMENT: tolerated session well. Toileted with CGA. No LOB or SOB. PLAN: will continue to work functional mobility and strength per PT TREATMENT CODE/TIME: 20 min ([id number])
[2022-12-26] MEDS: Bisacodyl 10 MG SUPP PR (14:11)
[2022-12-26] MEDS: Methylnaltrexone 12 MG/0.6 ML VIAL SC (14:11)
--- NOTE | 2022-12-26 14:19 | PDOC.CMIN ---
Date of service: 12/26/22 Time of Service: 14:19 Care Management Initial Assmt Initial Assessment REASON FOR HOSPITALIZATION:: Postop fever, possible perispinal abscess PREVIOUS FUNCTIONAL STATUS/SOCIAL/FAMILY SUPPORTS:: Adolfo lives in [facility] with his , Letty. He has seven adult children, many of whom live locally and are supportive of him. Adolfo is retired but formerly worked for [employer] for many years. He is independent at baseline. CURRENT FUNCTIONAL STATUS:: Adolfo is lying in bed when CM comes to meet with him. A [id number] is present in the room. Adolfo is pleasant and easily engages in conversation. His ednpfbfh-dr-yct questions why he isn't being made inpatient and CM spends some time discussing it with her and Adolfo. ADVANCE DIRECTIVES:: On file; Letty is appointed as Health Care Agent. Has patient been provided with info about the portal/API?: Yes Did the patient sign up for the portal?: Yes CODE STATUS:: Full Code INSURANCE COVERAGE / FINANCIAL ISSUES:: [employer] Medicare Replacement Plan. CURRENT HOME/COMMUNITY SERVICES/EQUIPMENT:: Home Health services were ordered upon Adolfo's discharge from [facility] but Adolfo presented in the ED before services could start. He has a cane, walker, raised toilet seat, bed rails, and a commode at home. PRIMARY CARE PHYSICIAN:: Sangita Rose aprn POTENTIAL DISCHARGE NEEDS:: Follow up appointment with PCP and potential short term rehab for strengthening. PATIENT/FAMILY EDUCATION NEEDS:: Review of discharge instructions including medications, limitations, follow up plan of care; discuss Ask Me Three. ANTICIPATED BARRIERS TO DISCHARGE:: Inability to ambulate independently and lack of payor source. TRANSPORTATION:: To be determined based on disposition. PLAN:: Adolfo is in need of short term rehab due to difficulty getting in and out of bed and with ambulation. At the request of family, a referral was made to the [facility] where Adolfo's [id number] is a charge nurse. CM will continue to support Adolfo, his family and his discharge planning needs. 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) Most recent MRI 08/25/2022 showing stenosis; Spine consult 11/01/2022 Degenerative joint disease (DJD) of lumbar spine (Acute) Effusion, right knee (Acute) Arthritis of right glenohumeral joint (Acute) Degenerative joint disease of right knee (Acute) Depo-Medrol injection: 05/07/2022 Bronchiectasis (Acute) Adrenal nodule (Acute) Rib pain on left side (Acute) Trochanteric bursitis of both hips (Chronic) Non-alcoholic fatty liver disease (Chronic 09/29/12) Type 2 diabetes mellitus (Chronic) Dx: 10/2018 Obesity (BMI 30-39.9) (Chronic) Advance directive in chart (Chronic 04/22/15) On-file with [facility] as of 04/22/2015 Sensorineural hearing loss, bilateral (Chronic 08/29/17) Osteoarthritis of knee (Chronic 08/13/13) Hypomagnesemia (Chronic 10/07/17) Hyperlipidemia, unspecified (Chronic 07/09/11) LDL GOAL 100 Gastroesophageal reflux disease (Chronic 07/09/11) Essential tremor (Chronic 07/27/11) Essential hypertension (Chronic 07/09/11) GOAL <130/80 Depression (Chronic 06/04/14) Long-term Celexa Rx Chronic obstructive pulmonary disease (COPD) (Chronic 09/29/12) MILD, 08/2012 PFTs FEV1 2.06 (70% pred and FVC), no response to bronchodilator; 11/17/15 bronchoscopy [facility]: NEG for Afb, fungus, & bacteria; cytology NEG for malignancy Cardiomyopathy (Chronic 04/10/12) BPH (benign prostatic hyperplasia) (Chronic 04/10/12) ASCVD (arteriosclerotic cardiovascular disease) (Chronic) S/p 5 vessel CABG 1995 Echo 09/27/2014 with normal LVEF Medical History Cataract 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 Essential tremor Heart disease Hypertension Sister Hypertensive disorder, systemic arterial Heart disease Brother , [place] at age 78. Heart disease Essential tremor Brother Heart disease Daughter Essential tremor Social History Smoking/Tobacco Use Status: Former Tobacco Use Tobacco: How many years used: 30 Smoking risk assessment performed?: Yes Alcohol Intake: never Drug use: Never Substance use type: does not use Adopted: No Caregiver/Support person: No Foster care: No Household members: spouse Housing: house Number of Children: 7 number of grandchildren: 25 Communication Needs: Hard of Hearing Education Level: high school Do you need help understanding health information?: Rarely current occupation: [employer] Pets and animals: Yes Pets and animals: dog(s) Sexually active: No Do you think of yourself as: straight/heterosexual Current gender identity: male What is your relationship status?: How often do you talk on the phone with friends or family?: three or more times per week How often do you get together with friends or relatives?: once per week Do you belong to any clubs or organized social groups?: yes Panel score (0-1 are the most socially isolated patients): 3 What type of physical activity do you participate in: walking and other Details: House work Duration: 15-30 minutes/day Frequency: 5-6 times per week Lindy/Mormonism: Zoroastrianism Seatbelt use: always Drive intox or ride w/intox 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
--- NOTE | 2022-12-26 17:38 | PGE_ITS ---
Date of Service Date of service: 12/26/22 Time of Service: 17:39 Assessment and Plan Assessment and plan (1) Fever: Status: Acute Assessment and plan: Post op fever - tylenol for fever [facility] [place] not [place] abx Imaging completed and sent to [facility] pending Procalcitonin negative Continue rodriguez catheter - urine negative Repeat cbc tomorrow Trend CRP - up today from 18.77 to 23.41 Monitor VS (2) S/P laminectomy: Status: Acute Assessment and plan: 4d post op laminectomy @ [facility] ortho consulted - do not recommend abx; films were pushed and viewed; see ED note Weak, moves all extr, no saddle anesthesia [facility] [place] concerned re post op infection Consider MRI (3) Weakness: Status: Acute Assessment and plan: Assessed by PT - unable to go home safely, should be placed for rehab, patient is in agreement with this plan Care mgrs working on referrals [facility] on Tuesday (4) Constipation: Status: Acute Assessment and plan: No BM reported for now 5d Taking hydromorphone Relistor repeated - continued to not have BM Dulcolax supp Lara senna and miralax ?Ileus (5) Essential hypertension: Status: Chronic Assessment and plan: Stable, continue home meds (6) Gastroesophageal reflux disease: Status: Chronic Assessment and plan: Stable, continue home meds Qualifiers: Esophagitis presence: esophagitis presence not specified Qualified Code(s): K21.9 - Gastro-esophageal reflux disease without esophagitis (7) DVT prophylaxis: Status: Acute Assessment and plan: Enoxaparin (8) Discharge planning issues: Status: Acute Assessment and plan: SNF Referrals sent by care mgt [facility] on Tuesday ( daughter in law works there) Discussed with Dr Regalado Subjective Subjective Patient reports: no new complaints and pain is less Exam Narrative Exam Narrative: 1.Const: Well-nourished, Well-developed, appearing stated age 2.Eyes: PERRL, no conjunctival injection, and symmetrical lids. 3.ENT: Atraumatic external nose and ears. Moist MM. Neck: Symmetric, trachea midline, No thyromegaly. 4.CVS: +S1/S2, No murmurs or gallops. Peripheral pulses 2+ and equal in all extremities. Brisk capillary refill in all extremities. 5.RESP: Unlabored respiratory effort. Minimal crackles at the bases. 6.GI: Soft, mildly distended, no guarding or rebound. 7.MSK: Normocephalic/Atraumatic, Extremities w/o deformity or ttp No cyanosis or clubbing, Normal movement of all extremities. No saddle anesthesia. Normal saddle and rectal sensation. Postoperative surgical sites are clean dry and intact with no redness erythema or drainage or discharge or warmth. 8.Skin: Warm, Dry. No rashes or lesions. Please see musculoskeletal 9.Neuro: kids club attendant II-XII grossly intact. Sensation grossly intact, no focal neurologic deficits. 10.Psych: (AAO) x3. Appropriate mood and affect Objective Last Vital Signs Temp 37.5 C 12/26/22 15:34 Pulse 63 12/26/22 15:34 Resp 18 12/26/22 15:34 BP 138/71 12/26/22 15:34 Pulse Ox 96 12/26/22 15:34 Laboratory Results - last 24 hr 12/25/22 12/25/22 12/26/22 03:50 18:53 06:20 WBC RBC Hgb Hct MCV MCH MCHC RDW Plt Count MPV Immature Gran % Neutrophils % Band Neutrophils % Lymphocytes % Atypical Lymphs % Monocytes % Eosinophils % Basophils % Metamyelocytes % Myelocytes % Promyelocytes % Other Cells % Nucleated RBC % Absolute Neutrophils Absolute Lymphocytes Absolute Monocytes Absolute Eosinophils Absolute Basophils RBC Morphology Polychromasia Hypochromasia Poikilocytosis Basophilic Stippling Anisocytosis Microcytosis Macrocytosis Spherocytes Tear Drop Cells Ovalocytes Stomatocytes Dale-Milligan Bodies Morris Cells/Echinocytes Acanthocytes (Spur) Schistocytes Sodium Potassium Chloride Carbon Dioxide Anion Gap BUN Creatinine Est GFR (CKD-EPI 2020) Glucose Calcium Magnesium 1.6 L Total Bilirubin AST ALT Alkaline Phosphatase C-Reactive Protein 18.77 H Total Protein Albumin Add-On Test Request DONE 12/26/22 12/26/22 12/26/22 06:20 06:20 06:50 WBC Cancelled 10.91 H RBC Cancelled 4.59 Hgb Cancelled 14.5 D Hct Cancelled 42.2 MCV Cancelled 92 MCH Cancelled 31.6 MCHC Cancelled 34.4 RDW Cancelled 12.8 Plt Count Cancelled 107 L MPV Cancelled 10.4 Immature Gran % Cancelled 0.5 Neutrophils % Cancelled 78.7 Band Neutrophils % Cancelled Lymphocytes % Cancelled 9.1 Atypical Lymphs % Cancelled Monocytes % Cancelled 10.2 Eosinophils % Cancelled 1.3 Basophils % Cancelled 0.2 Metamyelocytes % Cancelled Myelocytes % Cancelled Promyelocytes % Cancelled Other Cells % Cancelled Nucleated RBC % Cancelled 0.0 Absolute Neutrophils Cancelled 8.59 H Absolute Lymphocytes Cancelled 0.99 L Absolute Monocytes Cancelled 1.11 H Absolute Eosinophils Cancelled 0.14 Absolute Basophils Cancelled 0.02 RBC Morphology Cancelled Polychromasia Cancelled Hypochromasia Cancelled Poikilocytosis Cancelled Basophilic Stippling Cancelled Anisocytosis Cancelled Microcytosis Cancelled Macrocytosis Cancelled Spherocytes Cancelled Tear Drop Cells Cancelled Ovalocytes Cancelled Stomatocytes Cancelled Dale-Milligan Bodies Cancelled Darryl Cells/Echinocytes Cancelled Acanthocytes (Spur) Cancelled Schistocytes Cancelled Sodium 134 L Potassium 3.7 Chloride 100 Carbon Dioxide 26.2 Anion Gap 7.8 BUN 14 Creatinine 0.8 Est GFR (CKD-EPI 2020) 87.27 Glucose 158 H Calcium 8.2 L Magnesium Total Bilirubin 1.1 H AST 28 ALT 17 Alkaline Phosphatase 80 C-Reactive Protein 23.41 H Total Protein 5.8 L Albumin 2.5 L Add-On Test Request Time Spent with Patient Time Spent with Patient: 35-49 minutes Time was spent: preparing to see the patient(eg.review tests), ordering medications,tests, procedures, referring, communicating with other health career technical supervisor, indepentently interpreting results, counseling the patient and care coordination
[2022-12-26] MEDS: Enoxaparin 40 MG/0.4 ML SYR SC (18:03)
[2022-12-26] MEDS: Celecoxib 100 MG CAP PO (20:32)
[2022-12-26] MEDS: Normal Saline Flush 10 ML SYR (20:35)
[2022-12-26] MEDS: Primidone 50 MG TAB PO (21:05)
[2022-12-27 03:25] VITALS: BP 158/83; PULSE 75; RESP 18; TEMP 36.7; O2SAT 96
[2022-12-27 06:57] LABS: Abs Immature Grans 0.09 10^3/uL (0.0-0.06); Absolute Basophil Count 0.04 10^3/uL (0.0-0.2); Absolute Lymphocyte Count 0.89 10^3/uL (1.2-3.4); Absolute Monocyte Count 1.04 10^3/uL (0.1-0.8); Absolute Neutrophil Count 8.07 10^3/uL (1.2-6.7); Basophils % 0.4; Eosinophils % 2.9; HGB 11.2 g/dL (13.5-17.5); Immature Grans % 0.9; Lymphocytes % 8.5; MCH 31.3 pg (27.0-33.0); MCHC 33.9 % (32.0-36.0); MCV 92 fL (80-95); MPV 9.7 fL (8.0-11.0); Neutrophils % 77.3; Platelet Count 145 10^3/uL (130-400); RBC 3.58 10^6/uL (4.36-5.78); RDW 12.7 % (11.8-14.1); RDW-SD 42.7 fL; WBC 10.43 10^3/uL (4.4-10.8)
[2022-12-27 07:18] LABS: Anion Gap 6.7 mmol/L (3-11); BUN 16 mg/dL (7-18); CO2 30.3 mmol/L (21.0-32.0); CREATININE 0.9 mg/dL (0.70-1.30); Calcium 8.4 mg/dL (8.5-10.1); Chloride 101 mmol/L (98-107); Estimated GFR 84.22 (mL/min/1.73m2); Glucose 148 mg/dL (74-106); Potassium 3.8 mmol/L (3.5-5.1); Sodium 138 mmol/L (136-145)
[2022-12-27] MEDS: Umeclidinium 7 CAP INHALER IH (07:45)
[2022-12-27] MEDS: Budesonide/Formoterol 80/4.5 6.9 GM 60 PUFF INH IH ×2 (07:46→19:21)
[2022-12-27 07:52] VITALS: BP 153/73; PULSE 80; RESP 16; TEMP 37.3; O2SAT 97
[2022-12-27] MEDS: Metoprolol CR 25 MG TABCR PO (09:10)
[2022-12-27] MEDS: Atorvastatin 40 MG TAB 80 MG PO (09:10)
[2022-12-27] MEDS: Gabapentin 300 MG CAP PO ×3 (09:10→19:22)
[2022-12-27] MEDS: Senna TAB 1 TAB PO (09:10)
[2022-12-27] MEDS: Citalopram 20 MG TAB 40 MG PO (09:10)
[2022-12-27] MEDS: Cholecalciferol (Vitamin D3) 1,000 UNIT TAB 1000 UNITS PO ×2 (09:10→19:22)
[2022-12-27] MEDS: Pantoprazole 20 MG TABCR PO (09:10)
[2022-12-27] MEDS: Aspirin E.C. 81 MG TABEC PO (09:10)
[2022-12-27] MEDS: Magnesium Oxide 400 MG TAB PO (09:11)
[2022-12-27] MEDS: Celecoxib 100 MG CAP PO ×2 (09:14→18:42)
[2022-12-27] MEDS: HYDROmorphone 2 MG/ML SYR IVP (11:07)
[2022-12-27 11:20] LABS: Lab Add On Test DONE
[2022-12-27 11:21] VITALS: BP 102/68; PULSE 82; RESP 20; TEMP 37.9; O2SAT 95
[2022-12-27 11:46] LABS: C-Reactive Protein 23.25 mg/dL (0.0-0.3)
[2022-12-27 11:58] LABS: Procalcitonin 0.1 ng/mL
--- NOTE | 2022-12-27 11:59 | CMPROGNOTE_ITS ---
Date of service: 12/27/22 Time of Service: 11:59 Care Management Progress Note Progress Note Text Progress Note Text: S/O:Adolfo was sitting up in a chair visiting with his [id number] Colette when CM met with him. He was alert and oriented and engaged easily in conversation. There was a lengthy discussion about discharge planning issues. Adolfo recently (last week) had back surgery at [facility] but was only there for 2 nights. He has a medicare replacement plan and generally they are required to follow Medicare rules, which state that a 3 night qualifying stay in a an acute care hospital is required in order for them to pay for a correction facility stay. Adolfo is unable to get in and out of bed independently and needs some assistance with ambulation as well. He and his family feel he needs rehab and the PT who completed the PT evaluation for him made the same recommendation. A referral was sent to the [facility] yesterday and it is possible he may receive a bed offer as soon as tomorrow. Adolfo was admitted as an observation patient, but today IV anti biotics were initiated for a positive blood culture which met inpatient criteria, so his status was changed to inpatient. CM has since learned that Adolfo's medicare replacement plan through [facility] does NOT require a 3 night stay so transfer to a SNF with or without the 3 night stay is possible. A: Daniel is an 82 year old man admitted on 12/26/22 with a post operative fever P:Adolfo is in need of short term rehab due to difficulty getting in and out of bed and with ambulation.? At the request of family, a referral was made to the [facility] where Adolfo's [id number]-tka is a charge nurse. A follow up call with the [facility] indicated that a bed may be available tomorrow. CM also learned that Adolfo's medicare replacement plan does NOT require a 3 night qualifying stay, so that will not be a barrier. CM will continue to support Adolfo, his family and his discharge planning needs.
[2022-12-27] MEDS: VANCOMYCIN/WATER (PEG) 1 GM/200 ML BAG IV ×2 (12:44→23:08)
--- NOTE | 2022-12-27 14:00 | PGE_ITS ---
Date of Service Date of service: 12/27/22 Time of Service: 14:00 Assessment and Plan Assessment and plan (1) Fever: Status: Acute Assessment and plan: Borderline fever in a patient who is s/p laminectomy on 12/22/22. Recheck UA now that the patient has a rodriguez. ENcourage IS - I personally instructed the patient on how to do it and placed it within his reach today. Continue to trend CRP. [facility] does not think that the blood culture represents a true infection and, therefore, do not think that the patient needs transfer. They did recommend obtaining an MRI should any new neurologic symptoms develop. I started empiric vancomycin until the speciation of the GPC in blood culture 12/25/22 is known. Repeat blood cultures are negative. (2) Positive blood culture: Status: Acute Assessment and plan: 1 bottles positive on presentation. GPR is likely a contaminant, but a GPC in clusters could be enterococcus. Repeat blood cultures are w/ NGTD. Continue to monitor blood cultures. Await speciation on the positive blood culture. Start empiric vancomycin and trend CRP. (3) S/P laminectomy: Status: Acute Assessment and plan: S/p laminectomy of thoracic spine 12/22/22. See above (4) Urinary retention: Status: Acute Assessment and plan: S/p rodriguez. C/s urology. The patient did have spine surgery - ?neurogenic bladder. Additionally, does have constipation - continue to address that. (5) Weakness: Status: Acute Assessment and plan: Continue to work with PT. (6) Constipation: Status: Acute Assessment and plan: The patient has two BMs documented yesterday. Consider scheduled bowel regimen. I do wonder if he does not have neurogenic bladder and bowel. (7) Essential hypertension: Status: Chronic Assessment and plan: Continue toprol XL, (8) Gastroesophageal reflux disease: Status: Chronic Assessment and plan: Continue protonix Qualifiers: Esophagitis presence: esophagitis presence not specified Qualified Code(s): K21.9 - Gastro-esophageal reflux disease without esophagitis (9) DVT prophylaxis: Status: Acute Assessment and plan: Enoxaparin (10) Discharge planning issues: Status: Acute Assessment and plan: Full code Await SNF placement. Subjective Subjective Interval history since last seen: Mr Villavicencio denies dizziness, CP, SOB, n/v, numbness/tingling. He has been ambulating with a walker. He did again have a borderline fever (37.9). His blood cultures done on presentation (12/25/22) are now growing 2 organisms from 1 bottle - gram positive mila, which is likely a contaminant, and a GPC in clusters, further speciation pending. Repeat blood cultures done on the same day were negative (4/4 bottles). I discussed the case with [facility] who do not recommend getting a repeat MRI in absence of new neurologic symptoms. They do not recommend transfer to [facility] at this time. They recommend treating the patient for atelectasis and urinary retention (which we already are). He has a rodriguez catheter, inserted in the ED. Exam Narrative Exam Narrative: General: Pleasant elderly male who is A&Ox3, appears comfortable in a chair HEENT: EOMI, MMM Heart: RRR, no m/r/g Lungs: CTAB Abdomen: soft, nontender, nondistended : has a rodriguez, draining clear yellow urine. Extremities: no edema BLEs, able to move BLEs, 5/5 strength B Objective Last Vital Signs Temp 37.9 C H 12/27/22 11:21 Pulse 82 12/27/22 11:21 Resp 20 12/27/22 11:21 BP 102/68 12/27/22 11:21 Pulse Ox 95 12/27/22 11:21 Laboratory Results - last 24 hr 12/27/22 12/27/22 12/27/22 06:45 06:45 06:45 WBC 10.43 RBC 3.58 L Hgb 11.2 L D Hct 33.0 L MCV 92 MCH 31.3 MCHC 33.9 RDW 12.7 Plt Count 145 MPV 9.7 Immature Gran % 0.9 Neutrophils % 77.3 Lymphocytes % 8.5 Monocytes % 10.0 Eosinophils % 2.9 Basophils % 0.4 Nucleated RBC % 0.0 Absolute Neutrophils 8.07 H Absolute Lymphocytes 0.89 L Absolute Monocytes 1.04 H Absolute Eosinophils 0.30 Absolute Basophils 0.04 Sodium 138 Potassium 3.8 Chloride 101 Carbon Dioxide 30.3 Anion Gap 6.7 BUN 16 Creatinine 0.9 Est GFR (CKD-EPI 2020) 84.22 Glucose 148 H Calcium 8.4 L Magnesium 2.0 C-Reactive Protein Procalcitonin Add-On Test Request DONE 12/27/22 12/27/22 06:45 06:45 WBC RBC Hgb Hct MCV MCH MCHC RDW Plt Count MPV Immature Gran % Neutrophils % Lymphocytes % Monocytes % Eosinophils % Basophils % Nucleated RBC % Absolute Neutrophils Absolute Lymphocytes Absolute Monocytes Absolute Eosinophils Absolute Basophils Sodium Potassium Chloride Carbon Dioxide Anion Gap BUN Creatinine Est GFR (CKD-EPI 2020) Glucose Calcium Magnesium C-Reactive Protein 23.25 H Procalcitonin 0.1 Add-On Test Request Time Spent with Patient Time Spent with Patient: 35-49 minutes Time was spent: preparing to see the patient(eg.review tests), obtaining and/or reviewing separately otained hiistory, ordering medications,tests, procedures, referring, communicating with other health manager critical care, indepentently interpreting results, counseling the patient and care coordination
[2022-12-27 15:45] VITALS: BP 108/53; PULSE 83; RESP 24; TEMP 36.1; O2SAT 94
--- NOTE | 2022-12-27 15:57 | PT.INTREAT ---
Date of service: 12/27/22 Time of Service: 15:13 PT Notes Visit Reasons: Postop fever; possible perispinal abscess Inpatient Physical Therapy Treatment Note [facility] Date: 12/27/22 PRECAUTIONS: Fall, standard, activity as tolerated. SUBJECTIVE: Patient supine in bed, has family member visiting, alert and agreeable to therapy. OBJECTIVE: PAIN: none reported initially, mid way through ambulation reports right hip pain. BED MOBILITY/TRANSFERS Rolling L/R: standby Supine-sit: min assist Sit-supine: contact guard Sit-stand: contact guard Stand-sit: contact guard Bed-Chair: contact guard Chair-bed: contact guard GAIT Assistive Device: fww Weight bearing: full Assist: contact guard Distance: 125 feet Deviation: Patient becomes short of breath, recovers with standing rest ASSESSMENT: Patient tolerates therapy well, reports fatigue after ambulation PLAN: Continue global strengthening per plan of care until patient is medically ready for discharge TREATMENT CODE/TIME: 40205 Gait 16 minutes beginning at 15:13
[2022-12-27] MEDS: Bisacodyl 10 MG SUPP PR ×2 (16:01→17:06)
[2022-12-27] MEDS: Enoxaparin 40 MG/0.4 ML SYR SC (17:45)
[2022-12-27] MEDS: Acetaminophen 325 MG TAB 650 MG PO (18:42)
[2022-12-27 19:45] VITALS: BP 111/61; PULSE 84; RESP 18; TEMP 38; O2SAT 92
[2022-12-27] MEDS: Primidone 50 MG TAB PO (23:08)
[2022-12-27 23:50] VITALS: BP 124/68; PULSE 74; RESP 18; TEMP 36.3; O2SAT 94
[2022-12-28] MEDS: HYDROmorphone 2 MG/ML SYR IVP ×2 (02:06→13:02)
[2022-12-28 06:47] LABS: Abs Immature Grans 0.14 10^3/uL (0.0-0.06); Absolute Basophil Count 0.03 10^3/uL (0.0-0.2); Absolute Eosinophil Count 0.46 10^3/uL (0.0-0.7); Absolute Lymphocyte Count 1.24 10^3/uL (1.2-3.4); Absolute Monocyte Count 1.05 10^3/uL (0.1-0.8); Absolute Neutrophil Count 6.83 10^3/uL (1.2-6.7); Basophils % 0.3; Eosinophils % 4.7; HCT 32.7 % (40.0-50.0); HGB 10.9 g/dL (13.5-17.5); Immature Grans % 1.4; Lymphocytes % 12.7; MCH 31.3 pg (27.0-33.0); MCHC 33.3 % (32.0-36.0); MCV 94 fL (80-95); Monocytes % 10.8; Neutrophils % 70.1; Platelet Count 173 10^3/uL (130-400); RBC 3.48 10^6/uL (4.36-5.78); RDW-SD 44.5 fL; WBC 9.75 10^3/uL (4.4-10.8)
[2022-12-28 06:55] LABS: Bilirubin Negative (Negative); Blood Small (Negative); Clarity Sl Cloudy (Clear); Glucose Negative (Negative); Ketones Negative (Negative); Leukocyte Esterase Negative (Negative); Nitrite Negative (Negative); Specific Gravity 1.015 (1.005-1.025); Urobilinogen >=8.0 mg/dL (Up to 0.2)
[2022-12-28 07:02] LABS: WBC 0-2 HPF (0-5)
[2022-12-28 07:03] LABS: Bacteria Few HPF (Negative); C & S Indicated? Yes; Casts Negative LPF (Negative); Crystals Negative HPF (Negative); Epithelial Cells Rare HPF (Negative); Mucus Negative (Negative)
[2022-12-28 07:05] LABS: Anion Gap 6.2 mmol/L (3-11); BUN 17 mg/dL (7-18); C-Reactive Protein 16.64 mg/dL (0.0-0.3); CO2 29.8 mmol/L (21.0-32.0); CREATININE 0.9 mg/dL (0.70-1.30); Calcium 8.4 mg/dL (8.5-10.1); Chloride 101 mmol/L (98-107); Estimated GFR 84.22 (mL/min/1.73m2); Glucose 131 mg/dL (74-106); Potassium 3.9 mmol/L (3.5-5.1); Sodium 137 mmol/L (136-145)
[2022-12-28 07:20] VITALS: BP 128/75; PULSE 73; RESP 16; TEMP 37.7; O2SAT 96
--- NOTE | 2022-12-28 07:28 | UCONE_ITS ---
Date of service: 12/27/22 Time of Service: 16:00 Assessment and Plan Assessment and plan (1) Urinary retention: Status: Acute Assessment and plan: His retention is likely multifactorial with immobility, constipation and an enlarged prostate all contributing. Tthere may also be a neurologic component from his recent surgery. In any event, he currently has an indwelling catheter and we generally recommend leaving the catheter in place until his bowels are functioning normally and his mobility has improved. We may want to consider a trial of tamsulosin, but I would not start the medicine until his blood pressure is adequate. I expect that the air that was seen in his bladder was related to c atheterization during his spinal surgery admission. At least on his initial urinalysis, there is no evidence of a gas-forming organism growing in the urine. History of Present Illness History of Present Illness Chief Complaint: Urinary retention Narrative: This is an 82-year-old gentleman who recently underwent spinal surgery at [facility]. I do not have access to the actual operative report just yet, but it looks like a lumbar decompression and fusion from L3-L5 was the planned procedure. The patient was hospitalized following the procedure and discharged on postoperative day #3. Within 24 hours, he presented back to our emergency department with weakness and constipation. He was found to have a moderately distended bladder on scanning. He now has an indwelling catheter. He does recall having had a catheter during his hospitalization at [facility]. Once the catheter was removed, he had no difficulty with urination. Prior to his spine surgery, he felt like he emptied his bladder reasonably well. He did get up an average of once a night to urinate. Review of Systems Narrative: Low grade fevers. No chills No vision change or dysphasia Diabetes. No thyroid dysfunction COPD. No hemoptysis Hx cardiomyopathy. No chest pain or palpitations GERD. 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) Most recent MRI 08/25/2022 showing stenosis; Spine consult 11/01/2022 Degenerative joint disease (DJD) of lumbar spine (Acute) Effusion, right knee (Acute) Arthritis of right glenohumeral joint (Acute) Degenerative joint disease of right knee (Acute) Depo-Medrol injection: 05/07/2022 Bronchiectasis (Acute) Adrenal nodule (Acute) Rib pain on left side (Acute) Trochanteric bursitis of both hips (Chronic) Non-alcoholic fatty liver disease (Chronic 09/29/12) Type 2 diabetes mellitus (Chronic) Dx: 10/2018 Obesity (BMI 30-39.9) (Chronic) Advance directive in chart (Chronic 04/22/15) On-file with [facility] as of 04/22/2015 Sensorineural hearing loss, bilateral (Chronic 08/29/17) Osteoarthritis of knee (Chronic 08/13/13) Hypomagnesemia (Chronic 10/07/17) Hyperlipidemia, unspecified (Chronic 07/09/11) LDL GOAL 100 Gastroesophageal reflux disease (Chronic 07/09/11) Essential tremor (Chronic 07/27/11) Essential hypertension (Chronic 07/09/11) GOAL <130/80 Depression (Chronic 06/04/14) Long-term Celexa Rx Chronic obstructive pulmonary disease (COPD) (Chronic 09/29/12) MILD, 08/2012 PFTs FEV1 2.06 (70% pred and FVC), no response to bronchodilator; 11/17/15 bronchoscopy [facility]: NEG for [employer], fungus, & bacteria; cytology NEG for malignancy Cardiomyopathy (Chronic 04/10/12) BPH (benign prostatic hyperplasia) (Chronic 04/10/12) ASCVD (arteriosclerotic cardiovascular disease) (Chronic) S/p 5 vessel CABG 1995 Echo 09/27/2014 with normal LVEF Medical History Cataract 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 Essential tremor Heart disease Hypertension Sister Hypertensive disorder, systemic arterial Heart disease Brother , [place] at age 78. Heart disease Essential tremor Brother Heart disease Daughter Essential tremor Social History Smoking/Tobacco Use Status: Former Tobacco Use Tobacco: How many years used: 30 Smoking risk assessment performed?: Yes Alcohol Intake: never Drug use: Never Substance use type: does not use Adopted: No Caregiver/Support person: No Foster care: No Household members: spouse Housing: house Number of Children: 7 number of grandchildren: 25 Communication Needs: Hard of Hearing Education Level: high school Do you need help understanding health information?: Rarely current occupation: [employer] Pets and animals: Yes Pets and animals: dog(s) Sexually active: No Do you think of yourself as: straight/heterosexual Current gender identity: male What is your relationship status?: How often do you talk on the phone with friends or family?: three or more times per week How often do you get together with friends or relatives?: once per week Do you belong to any clubs or organized social groups?: yes Panel score (0-1 are the most socially isolated patients): 3 What type of physical activity do you participate in: walking and other Details: House work Duration: 15-30 minutes/day Frequency: 5-6 times per week Lindy/Synagogue: Taoist Seatbelt use: always Drive intox or ride w/intox goat driver: No Water heater temp set <120 deg: Yes Working smoke detector in home: Yes Fire extinguisher in home: Yes Carbon monox detector in home: Yes Do you feel safe at home: Yes Do you feel safe in your relationship?: Yes Additional Social history: He has 5 step-children in addition to 3 biological. Exam Narrative Exam Narrative: By the bedside His vital signs are documented elsewhere His chest wall motion is normal. He is not short of breath at rest. His abdomen is obese but soft with no guarding or rebound tenderness. No abdominal masses found. There is a Fay catheter in place and it is draining clear urine He is awake and alert Results Last Vital Signs Temp 37.7 C H 12/28/22 07:20 Pulse 73 12/28/22 07:20 Resp 16 12/28/22 07:20 BP 128/75 12/28/22 07:20 Pulse Ox 96 12/28/22 07:20 Labs 12/28/22 06:23 12/28/22 06:23 Labs: Laboratory Results - last 24 hr 12/27/22 12/27/22 12/27/22 06:45 06:45 06:45 WBC RBC Hgb Hct MCV MCH MCHC RDW Plt Count MPV Immature Gran % Neutrophils % Lymphocytes % Monocytes % Eosinophils % Basophils % Nucleated RBC % Absolute Neutrophils Absolute Lymphocytes Absolute Monocytes Absolute Eosinophils Absolute Basophils Sodium Potassium Chloride Carbon Dioxide Anion Gap BUN Creatinine Est GFR (CKD-EPI 2020) Glucose Calcium Magnesium C-Reactive Protein 23.25 H Procalcitonin 0.1 Urine Color Urine Clarity Urine pH Ur Specific [place] Urine Protein Urine Ketones Urine Blood Urine Nitrite Urine Bilirubin Urine Urobilinogen Ur Leukocyte Esterase Urine RBC Urine WBC Ur Epithelial Cells Urine Crystals Urine Bacteria Urine Casts Urine Mucus Ur Culture Indicated? Urine Glucose Add-On Test Request DONE 12/28/22 12/28/22 12/28/22 06:04 06:23 06:23 WBC 9.75 RBC 3.48 L Hgb 10.9 L Hct 32.7 L MCV 94 MCH 31.3 MCHC 33.3 RDW 13.0 Plt Count 173 MPV 10.0 Immature Gran % 1.4 Neutrophils % 70.1 Lymphocytes % 12.7 Monocytes % 10.8 Eosinophils % 4.7 Basophils % 0.3 Nucleated RBC % 0.0 Absolute Neutrophils 6.83 H Absolute Lymphocytes 1.24 Absolute Monocytes 1.05 H Absolute Eosinophils 0.46 Absolute Basophils 0.03 Sodium 137 Potassium 3.9 Chloride 101 Carbon Dioxide 29.8 Anion Gap 6.2 BUN 17 Creatinine 0.9 Est GFR (CKD-EPI 2020) 84.22 Glucose 131 H Calcium 8.4 L Magnesium 2.0 C-Reactive Protein 16.64 H Procalcitonin Urine Color Yellow Urine Clarity Sl Cloudy Urine pH 6.0 Ur Specific [place] 1.015 Urine Protein Negative Urine Ketones Negative Urine Blood Small H Urine Nitrite Negative Urine Bilirubin Negative Urine Urobilinogen >=8.0 H Ur Leukocyte Esterase Negative Urine RBC 5-10 H Urine WBC 0-2 Ur Epithelial Cells Rare Urine Crystals Negative Urine Bacteria Few Urine Casts Negative Urine Mucus Negative Ur Culture Indicated? Yes Urine Glucose Negative Add-On Test Request
[2022-12-28] MEDS: Umeclidinium 7 CAP INHALER IH (07:35)
[2022-12-28] MEDS: Budesonide/Formoterol 80/4.5 6.9 GM 60 PUFF INH IH ×2 (07:35→19:19)
[2022-12-28] MEDS: Citalopram 20 MG TAB 40 MG PO (08:46)
[2022-12-28] MEDS: Aspirin E.C. 81 MG TABEC PO (08:46)
[2022-12-28] MEDS: Cholecalciferol (Vitamin D3) 1,000 UNIT TAB 1000 UNITS PO ×2 (08:46→20:17)
[2022-12-28] MEDS: Atorvastatin 40 MG TAB 80 MG PO (08:46)
[2022-12-28] MEDS: Gabapentin 300 MG CAP PO ×3 (08:47→20:17)
[2022-12-28] MEDS: Magnesium Oxide 400 MG TAB PO (08:47)
[2022-12-28] MEDS: Docusate Sodium 100 MG CAP PO (08:47)
[2022-12-28] MEDS: Polyethylene Glycol 3350 17 GM PACKET PO (08:48)
[2022-12-28] MEDS: Metoprolol CR 25 MG TABCR PO (08:48)
[2022-12-28] MEDS: Senna TAB 1 TAB PO (08:48)
[2022-12-28] MEDS: Pantoprazole 20 MG TABCR PO (08:48)
[2022-12-28] MEDS: Normal Saline Flush 10 ML SYR IVP ×3 (08:49→13:03)
--- NOTE | 2022-12-28 09:22 | PDOC.CMPRO ---
Date of service: 12/28/22 Time of Service: 09:22 Care Management Progress Note Progress Note Text Progress Note Text: S/O:Adolfo was sitting up in a chair when CM met with him. He stated that he is doing well today. He shared that he walked with PT and even did stairs. He admitted that he was pleased with his progress. Adolfo would still prefer to go to rehab, but thinks he may do alright if he goes home. CM informed him that he does have a bed at the [facility] but that they need to obtain authorization from his insurance company before he can be admitted. That process is underway. DANIELLE was able to provide needed information to [facility] to facilitate the process. CM updated [id number] Colette. A: Daniel is an 82 year old man admitted on 12/26/22 with a post operative fever P:Adolfo is in need of short term rehab due to difficulty getting in and out of bed and with ambulation.? At the request of family, a referral was made to the [facility] where Adolfo's [id number] is a charge nurse. A follow up call with the [facility] indicated that a bed may be available tomorrow. DANIELLE also learned that Adolfo's medicare replacement plan does NOT require a 3 night qualifying stay, so that will not be a barrier. CM will continue to support Adolfo, his family and his discharge planning needs.
[2022-12-28 11:08] VITALS: BP 96/53; PULSE 80; RESP 16; TEMP 38.2; O2SAT 94
[2022-12-28 11:20] VITALS: BP 124/56; TEMP 38.2
[2022-12-28] MEDS: Acetaminophen 325 MG TAB 650 MG PO (11:20)
[2022-12-28] MEDS: VANCOMYCIN/WATER (PEG) 1 GM/200 ML BAG IV ×2 (11:54→23:06)
--- NOTE | 2022-12-28 13:43 | W.PM.PROGNOT ---
Date of Service Date of service: 12/28/22 Time of Service: 13:44 Assessment and Plan Assessment and plan (1) Fever: Status: Acute Assessment and plan: Borderline fever in a patient who is s/p laminectomy on 12/22/22. Encourage IS Continue to trend CRP. [facility] [place] not think that the blood culture represents a true infection and, therefore, do not think that the patient needs transfer. They did recommend obtaining an MRI should any new neurologic symptoms develop. Empiric vancomycin was started until the speciation of the GPC in blood culture 12/25/22 is known. Repeat blood cultures are negative. (2) Positive blood culture: Status: Acute Assessment and plan: 1/ bottles positive on presentation. GPR is likely a contaminant, but a GPC in clusters could be enterococcus. Repeat blood cultures are w/ NGTD. Continue to monitor blood cultures. Await speciation on the positive blood culture. Continue vancomycin and trend CRP. (3) S/P laminectomy: Status: Acute Assessment and plan: S/p laminectomy of thoracic spine 12/22/22. See above (4) Urinary retention: Status: Acute Assessment and plan: S/p rodriguez. Seen by urology The patient did have spine surgery - ?neurogenic bladder. Additionally, does have constipation - continue scheduled bowel meds and pt did receive two doses of Relestor. Reported by nsg he had 2 large BMs. (5) Weakness: Status: Acute Assessment and plan: Continue to work with PT. (6) Constipation: Status: Acute Assessment and plan: The patient has two BMs documented yesterday. Scheduled bowel regimen. I (7) Essential hypertension: Status: Chronic Assessment and plan: Continue toprol XL, (8) Gastroesophageal reflux disease: Status: Chronic Assessment and plan: Continue protonix Qualifiers: Esophagitis presence: esophagitis presence not specified Qualified Code(s): K21.9 - Gastro-esophageal reflux disease without esophagitis (9) DVT prophylaxis: Status: Acute Assessment and plan: Enoxaparin (10) Discharge planning issues: Status: Acute Assessment and plan: Full code Await SNF placement. Discussed with Dr Pearson Subjective Subjective Patient reports: tolerating a regular diet and bowel movement (large); denies vomiting or fever Interval history since last seen: Adolfo is doing well, he is motivated to mobilize and work with PT so he can go home. He continues to want to go to short term rehab to regain strength Exam Narrative Exam Narrative: 1.Const: Well-nourished, Well-developed, appearing stated age 2.Eyes: PERRL, no conjunctival injection, and symmetrical lids. 3.ENT: Atraumatic external nose and ears. Moist MM. Neck: Symmetric, trachea midline, No thyromegaly. 4.CVS: +S1/S2, No murmurs or gallops. Peripheral pulses 2+ and equal in all extremities. Brisk capillary refill in all extremities. 5.RESP: Unlabored respiratory effort. Minimal crackles at the bases. 6.GI: Soft, mildly distended, no guarding or rebound. 7.MSK: Normocephalic/Atraumatic, Extremities w/o deformity. No cyanosis or clubbing, Normal movement of all extremities. No saddle anesthesia. Postoperative surgical sites are clean dry and intact with no redness erythema or drainage or discharge or warmth. 8.Skin: Warm, Dry. No rashes or lesions. Please see musculoskeletal 9.Neuro: photograph developer II-XII grossly intact. Sensation grossly intact, no focal neurologic deficits. 10.Psych: (AAO) x3. Appropriate mood and affect Objective Last Vital Signs Temp 38.2 C H 12/28/22 11:20 Pulse 80 12/28/22 11:08 Resp 16 12/28/22 11:08 BP 124/56 L 12/28/22 11:20 Pulse Ox 94 12/28/22 11:08 Laboratory Results - last 24 hr 12/28/22 12/28/22 12/28/22 06:04 06:23 06:23 WBC 9.75 RBC 3.48 L Hgb 10.9 L Hct 32.7 L MCV 94 MCH 31.3 MCHC 33.3 RDW 13.0 Plt Count 173 MPV 10.0 Immature Gran % 1.4 Neutrophils % 70.1 Lymphocytes % 12.7 Monocytes % 10.8 Eosinophils % 4.7 Basophils % 0.3 Nucleated RBC % 0.0 Absolute Neutrophils 6.83 H Absolute Lymphocytes 1.24 Absolute Monocytes 1.05 H Absolute Eosinophils 0.46 Absolute Basophils 0.03 Sodium 137 Potassium 3.9 Chloride 101 Carbon Dioxide 29.8 Anion Gap 6.2 BUN 17 Creatinine 0.9 Est GFR (CKD-EPI 2020) 84.22 Glucose 131 H Calcium 8.4 L Magnesium 2.0 C-Reactive Protein 16.64 H Urine Color Yellow Urine Clarity Sl Cloudy Urine pH 6.0 Ur Specific [place] 1.015 Urine Protein Negative Urine Ketones Negative Urine Blood Small H Urine Nitrite Negative Urine Bilirubin Negative Urine Urobilinogen >=8.0 H Ur Leukocyte Esterase Negative Urine RBC 5-10 H Urine WBC 0-2 Ur Epithelial Cells Rare Urine Crystals Negative Urine Bacteria Few Urine Casts Negative Urine Mucus Negative Ur Culture Indicated? Yes Urine Glucose Negative Time Spent with Patient Time Spent with Patient: 25-34 minutes Time was spent: preparing to see the patient(eg.review tests), ordering medications,tests, procedures, referring, communicating with other health home care associate, indepentently interpreting results, counseling the patient and care coordination
[2022-12-28 15:30] VITALS: BP 118/58; PULSE 70; RESP 18; TEMP 37; O2SAT 95
[2022-12-28] MEDS: Enoxaparin 40 MG/0.4 ML SYR SC (17:17)
[2022-12-28] MEDS: Celecoxib 100 MG CAP PO (17:17)
[2022-12-28] MEDS: HYDROmorphone 2 MG TAB PO (18:49)
[2022-12-28 20:00] VITALS: BP 118/61; PULSE 78; RESP 18; TEMP 38.1; O2SAT 95
--- NOTE | 2022-12-28 23:03 | PT.INTREAT ---
Date of service: 12/28/22 Time of Service: 15:16 PT Notes Visit Reasons: Postop fever; Possible Perispinal Abscess Inpatient Physical Therapy Treatment Note [facility] Date: 12/28/22 PRECAUTIONS: Fall, standard, activity as tolerated SUBJECTIVE: Patient supine in bed, agreeable to therapy OBJECTIVE: PAIN: none reported BED MOBILITY/TRANSFERS Rolling L/R: independent Supine-sit: independent Sit-supine: independent Sit-stand: standby Stand-sit: standby Bed-Chair: standby Chair-bed: standby GAIT Assistive Device: front wheeled walker Weight bearing: full Assist: standby Distance: 200 feet Deviation: no shortness of breath, no loss of balance, patient did report feeling fatigued towards end of ambulation STAIRS: Ascended and descended 13 stairs with reciprocal gait pattern and bilateral rails. Did experience some shortness of breath which resolved with brief standing rest. ASSESSMENT: Patient tolerates therapy well, returns to rest in bed at end of treatment PLAN: continue gloabl strengthening per plan of care TREATMENT CODE/TIME: 11176 Gait 20 minutes beginning at 15:16
[2022-12-28] MEDS: Primidone 50 MG TAB PO (23:06)
[2022-12-28 23:55] VITALS: BP 133/67; PULSE 78; RESP 18; TEMP 37; O2SAT 95
[2022-12-29 03:44] VITALS: BP 152/72; PULSE 76; RESP 18; TEMP 36.4; O2SAT 96
[2022-12-29 06:56] LABS: Abs Immature Grans 0.21 10^3/uL (0.0-0.06); Absolute Basophil Count 0.03 10^3/uL (0.0-0.2); Absolute Eosinophil Count 0.38 10^3/uL (0.0-0.7); Absolute Lymphocyte Count 1.02 10^3/uL (1.2-3.4); Absolute Monocyte Count 1.02 10^3/uL (0.1-0.8); Absolute Neutrophil Count 7.79 10^3/uL (1.2-6.7); Basophils % 0.3; Eosinophils % 3.6; HCT 32.3 % (40.0-50.0); HGB 10.9 g/dL (13.5-17.5); Lymphocytes % 9.8; MCH 31.2 pg (27.0-33.0); MCHC 33.7 % (32.0-36.0); MCV 93 fL (80-95); MPV 10.3 fL (8.0-11.0); Monocytes % 9.8; Neutrophils % 74.5; Platelet Count 198 10^3/uL (130-400); RBC 3.49 10^6/uL (4.36-5.78); RDW-SD 43.8 fL; WBC 10.45 10^3/uL (4.4-10.8)
[2022-12-29 07:19] LABS: Anion Gap 6.3 mmol/L (3-11); BUN 14 mg/dL (7-18); CO2 29.7 mmol/L (21.0-32.0); CREATININE 0.9 mg/dL (0.70-1.30); Calcium 8.4 mg/dL (8.5-10.1); Chloride 102 mmol/L (98-107); Estimated GFR 84.22 (mL/min/1.73m2); Glucose 151 mg/dL (74-106); Magnesium 1.9 mg/dL (1.8-2.4); Potassium 3.9 mmol/L (3.5-5.1); Sodium 138 mmol/L (136-145)
[2022-12-29] MEDS: Budesonide/Formoterol 80/4.5 6.9 GM 60 PUFF INH IH (07:59)
[2022-12-29 08:00] VITALS: O2SAT 95
[2022-12-29] MEDS: Umeclidinium 7 CAP INHALER IH (08:00)
[2022-12-29 08:32] LABS: Vancomycin, Random 12.9 ug/mL
[2022-12-29] MEDS: HYDROmorphone 2 MG TAB PO (08:44)
[2022-12-29] MEDS: Acetaminophen 325 MG TAB 650 MG PO (08:44)
[2022-12-29] MEDS: Citalopram 20 MG TAB 40 MG PO (08:49)
[2022-12-29] MEDS: Metoprolol CR 25 MG TABCR PO (08:57)
[2022-12-29] MEDS: Pantoprazole 20 MG TABCR PO (08:57)
[2022-12-29] MEDS: Cholecalciferol (Vitamin D3) 1,000 UNIT TAB 1000 UNITS PO (08:57)
[2022-12-29] MEDS: Atorvastatin 40 MG TAB 80 MG PO (08:58)
[2022-12-29] MEDS: Magnesium Oxide 400 MG TAB PO (08:58)
[2022-12-29] MEDS: Aspirin E.C. 81 MG TABEC PO (08:58)
[2022-12-29] MEDS: Gabapentin 300 MG CAP PO (08:58)
[2022-12-29] MEDS: Docusate Sodium 100 MG CAP PO (09:00)
[2022-12-29] MEDS: Polyethylene Glycol 3350 17 GM PACKET PO (09:01)
[2022-12-29 11:06] VITALS: BP 121/69; PULSE 76; RESP 18; TEMP 36.5; O2SAT 94
--- NOTE | 2022-12-29 13:54 | W.PM.DS.N ---
Date of service: 12/29/22 Time of Service: 13:54 DS: Diagnosis Discharge Diagnosis (1) Fever: Status: Acute (2) Positive blood culture: Status: Acute (3) S/P laminectomy: Status: Acute (4) Urinary retention: Status: Acute (5) Weakness: Status: Acute (6) Constipation: Status: Acute (7) Essential hypertension: Status: Chronic (8) Gastroesophageal reflux disease: Status: Chronic Discharge Plan Disposition Patient Disposition: Jail Facility(SNF) Condition: Stable Discharge Details Reason For Visit: Postop fever; Possible Perispinal Abscess Admit Date/Time: 12/27/22 15:55 Admit Provider: Sukhjinder Regalado Attending Provider: Sukhjinder Regalado Primary Care Provider: Sangita Rose Hospital Course Hospital Course: this is a 82-year-old gentleman who presented to the emergency department here at [facility] with complaints of fever and general malaise. He had just been discharged from [facility] where he underwent?L3-L5 posterolateral fusion, L3 L5 laminectomy with medial fasciotomies and foraminotomies, pedicle screw instrumentation L3-L5.? Local bone grafting.? His work-up in the emergency department included CAT scans which were reviewed by spine surgery at [facility] and they did not see any abscess or concern for infection and did not recommend ongoing antibiotics. He had received a dose of vancomycin and Zosyn in the emergency department. He was admitted to the medical surgical unit while blood cultures were pending. 1 set of his original blood cultures was positive for gram-positive cocci so vancomycin was continued while hospitalized. His inflammatory markers and white count were followed and his CRP did improve from 23 to 16, his white count remained normal and was 10.4 on day of discharge. Following blood cultures remained negative. he remained afebrile and hemodynamically stable and was slated for discharge today. ID and sensitivities on the first positive bottle did result prior to discharge and grew Enterococcus which was resistant to vancomycin. I did contact his orthopedic spine surgeon group at [facility] who do not feel that his surgical site has been compromised or is a concern and would defer any recommendations to ID. I did try to reach out to ID at [facility] but did not receive a call back prior to his planned discharge so I did discuss his case with Dr. Parra at [facility] who recommended repeating blood cultures today prior to discharge as he has not been being treated for this organism since admission and to initiate high-dose amoxicillin at 1000 mg 3 times daily for 2 weeks. He has been medically stable afebrile and normal pulse in the 70s and blood pressure of 120/69 and is stable for discharge back to the [facility] for on going rehabilitation. Spinal surgery at [facility] recommends routine previously scheduled follow-up in 2 weeks. Discharge is discussed with Dr. Becerra [place] Meds and New Rx's Prescriptions: New amoxicillin 500 mg capsule 1,000 mg PO TID 14 Days Qty: 84 0RF Continued magnesium oxide 500 mg capsule 500 mg PO DAILY Qty: 90 3RF acetaminophen 500 mg tablet 1,000 mg PO TID PRN metoprolol succinate 25 mg tablet extended release 24 hr 25 mg PO DAILY Qty: 90 3RF acetylcysteine [NAC] 600 mg capsule 600 mg PO BID Qty: 60 7RF aspirin 81 MG tablet,delayed release (DR/EC) 81 mg PO DAILY (DME) Aerochamber Plus Flow-Vu,S Msk 1 EACH spacer 1 ea Miscellaneous PRN polyethylene glycol 3350 [GlycoLax] 527 GM powder 17 g PO DAILY (DME) lancets [OneTouch Delica Lancets] 1 EACH misc 1 ea Miscellaneous DAILY Qty: 100 Rx Instructions: E11.9 to maintain A1C less than 7.0 albuterol sulfate [ProAir HFA] 8.5 GM HFA aerosol inhaler 1 - 2 puff Inhalation Q4-6H PRN Qty: 1 3RF Rx Instructions: DISPENSE ALBUTEROL INHALER BRAND COVERED BY INSURANCE cholecalciferol (vitamin D3) 25 mcg (1,000 unit) tablet 1,000 unit PO BID fluticasone furoate-vilanterol [Breo Ellipta] 100-25 mcg/dose blister with device 1 ea Inhalation DAILY Qty: 60 12RF Rx Instructions: [facility] Incruse Ellipta 62.5 mcg/actuation blister with device 62.5 mcg Inhalation DAILY Qty: 30 12RF (DME) nebulizer and accessories See Rx Instructions .Route .MEDSUPPLY Qty: 1 0RF Rx Instructions: As directed clotrimazole [Lotrimin AF (clotrimazole)] 1 % cream 1 applic TP BID Qty: 45 3RF Rx Instructions: Apply thin film to affected area until resolution (usually 4 weeks) + 3-4 days pantoprazole 20 mg tablet,delayed release (DR/EC) 20 mg PO DAILY Qty: 90 3RF Rx Instructions: Take 20 mg daily once daily in the morning at least 30-60 minutes before first meal of the day atorvastatin 80 mg tablet 80 mg PO DAILY Qty: 90 3RF (DME) Blood Glucose Test Strip See Rx Instructions .ROUTE .MEDSUPPLY Qty: 100 3RF Rx Instructions: As directed to check daily morning fasting blood glucose. No insulin. Dispense covered brand. celecoxib [Celebrex] 100 mg capsule 100 mg PO BID PRN (Reason: pain) Qty: 180 0RF albuterol sulfate 2.5 mg/0.5 mL solution for nebulization 2.5 mg Inhalation Q4-6H PRN Qty: 180 3RF gabapentin 300 mg capsule 300 mg PO TID Qty: 270 0RF citalopram 40 mg tablet 40 mg PO DAILY Qty: 90 3RF cyclobenzaprine 10 mg tablet 10 mg PO TID PRNQty: 20 0RF hydromorphone 2 mg tablet 2 mg PO Q4H PRN PRN sennosides [senna] 8.6 mg Tablet 8.6 mg PO BID PRN Changed primidone 50 mg tablet 50 mg PO QHS MDD 150 mg Qty: 270 3RF Discharge Instructions Instructions: Bacteremia (DC) Stand Alone Forms: Nursing Discharge Form Referrals: Sangita Rose NP [Primary Care Provider] - 01/07/23 11:00 am Activity:: Activity as Tolerated Equipment/Supplies:: No Equipment Needed Diet:: As Tolerated Discharge Orders Discharge Orders: Discharge Order (Routine); Ordered 12/29/22 Ordered By: Amber Mooney Discharge Data Discharge Date/Time-TO BE ENTERED AT DEPARTURE: 12/29/22 12:08 DS: Summary Time Spent with Patient providing and/or coordinating discharge services: Greater than 30 minutes Status at Discharge Functional status at discharge: uses cane/walker Overall status at discharge: patient is progressing back to baseline Mental Status: mental status grossly normal Speech and Movement: speech and movement normal Mood: congruent mood Affect: normal affect Exam Const General: no acute distress Orientation: alert HENMT Head: normal to inspection Ears: external ears normal General nose exam: external nose normal Mouth: moist mucous membranes Eyes General: appearance normal, both eyes and all related structures Neck Neck: normal visual inspection Resp Effort & Inspection: normal respiratory effort and able to speak in complete sentences Cardio Rate: regular rate GI Palpation: soft and nontender Back/Spine/Pelvis Back: no CVA tenderness Skin General skin exam: no rashes or lesions noted and other (dressings clean dry and intact) Neuro General: patient alert and patient oriented x3 Extrem General: full ROM and capillary refill normal Psych Mental Status: mental status grossly normal Speech and Movement: speech and movement normal Mood: congruent mood Affect: normal affect DS: Data Vitals/I&O Vitals and I&O: Vital Signs Temperature 36.5 C 12/29/22 11:06 Temperature Source Tympanic 12/29/22 11:06 Pulse 76 12/29/22 11:06 Pulse Rhythm Regular 12/29/22 09:03 Pulse Strength Normal 12/25/22 06:15 Pulse 89 12/25/22 12:31 Respiratory Rate 18 12/29/22 11:06 Respiratory Effort Normal 12/29/22 09:03 Respiratory Depth Normal 12/29/22 09:03 Respiratory Pattern Normal 12/29/22 09:03 Blood Pressure 121/69 12/29/22 11:06 Blood Pressure Mean 70 12/25/22 12:30 Blood Pressure Position Supine 12/25/22 06:15 Pulse Oximetry 94 12/29/22 11:06 Oxygen Delivery Method Room Air 12/29/22 11:06 Oxygen Flow Rate 0 12/29/22 11:06 Pain Level 0 12/29/22 11:06 Comment RN informed of temp and BP 12/28/22 11:08 Intake & Output 12/28/22 12/29/22 12/29/22 23:59 11:59 23:59 Intake Total 200 / 650 680 / 680 Output Total 550 / 1050 1450 / 1450 Balance -350 / -400 -770 / -770 Intake: IV 200 / 400 200 / 200 Oral 480 / 480 Output: Urine 550 / 1050 1450 / 1450 Other: Urine Color Yellow Yellow Urine Appearance Clear Cloudy Stool Size Copious Stool Characteristics Soft Data Completed and Pending Labs on day of discharge: Labs from last 24 hours 12/29/22 12/29/2223 06:13 06:13 06:13 WBC 10.45 RBC 3.49 L Hgb 10.9 L Hct 32.3 L MCV 93 MCH 31.2 MCHC 33.7 RDW 13.0 Plt Count 198 MPV 10.3 Immature Gran % 2.0 Neutrophils % 74.5 Lymphocytes % 9.8 Monocytes % 9.8 Eosinophils % 3.6 Basophils % 0.3 Nucleated RBC % 0.0 Absolute Neutrophils 7.79 H Absolute Lymphocytes 1.02 L Absolute Monocytes 1.02 H Absolute Eosinophils 0.38 Absolute Basophils 0.03 Sodium 138 Potassium 3.9 Chloride 102 Carbon Dioxide 29.7 Anion Gap 6.3 BUN 14 Creatinine 0.9 Est GFR (CKD-EPI 2020) 84.22 Glucose 151 H Calcium 8.4 L Magnesium 1.9 Random Vancomycin 12.9 12/29/22 11:50 Blood Blood Culture - Pending 12/29/22 11:38 Blood Blood Culture - Pending Preliminary micro results at discharge 12/28/22 06:04 Urine Culture - Preliminary Urine - Reflex from Ua 12/29/22 11:50 Blood Culture - Pending Blood 12/29/22 11:38 Blood Culture - Pending Blood 12/25/22 03:50 Blood Culture - Preliminary Blood Bacillus Sp., Not Anthracis Enterococcus Casseliflavus 12/25/22 03:53 Blood Culture - Preliminary Blood NO GROWTH 96 HOURS 12/25/22 22:45 Blood Culture - Preliminary Blood NO GROWTH 72 HOURS 12/25/22 22:50 Blood Culture - Preliminary Blood NO GROWTH 72 HOURS PFSH All Active Problems (Updated 12/27/22 @ 14:08 by Luz Owens MD) Urinary retention (Acute) Positive blood culture (Acute) S/P laminectomy (Acute) Constipation (Acute) Discharge planning issues (Acute) DVT prophylaxis (Acute) Fever (Acute) Fever postop (Acute) Weakness (Acute) Degenerative spondylolisthesis (Acute) 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) Most recent MRI 08/25/2022 showing stenosis; Spine consult 11/01/2022 Degenerative joint disease (DJD) of lumbar spine (Acute) Effusion, right knee (Acute) Arthritis of right glenohumeral joint (Acute) Degenerative joint disease of right knee (Acute) Depo-Medrol injection: 05/07/2022 Bronchiectasis (Acute) Adrenal nodule (Acute) Rib pain on left side (Acute) Trochanteric bursitis of both hips (Chronic) Non-alcoholic fatty liver disease (Chronic 09/29/12) Type 2 diabetes mellitus (Chronic) Dx: 10/2018 Obesity (BMI 30-39.9) (Chronic) Advance directive in chart (Chronic 04/22/15) On-file with [facility] as of 04/22/2015 Sensorineural hearing loss, bilateral (Chronic 08/29/17) Osteoarthritis of knee (Chronic 08/13/13) Hypomagnesemia (Chronic 10/07/17) Hyperlipidemia, unspecified (Chronic 07/09/11) LDL GOAL 100 Gastroesophageal reflux disease (Chronic 07/09/11) Essential tremor (Chronic 07/27/11) Essential hypertension (Chronic 07/09/11) GOAL <130/80 Depression (Chronic 06/04/14) Long-term Celexa Rx Chronic obstructive pulmonary disease (COPD) (Chronic 09/29/12) MILD, 08/2012 PFTs FEV1 2.06 (70% pred and FVC), no response to bronchodilator; 11/17/15 bronchoscopy [facility]: NEG for Afb, fungus, & bacteria; cytology NEG for malignancy Cardiomyopathy (Chronic 04/10/12) BPH (benign prostatic hyperplasia) (Chronic 04/10/12) ASCVD (arteriosclerotic cardiovascular disease) (Chronic) S/p 5 vessel CABG 1995 Echo 09/27/2014 with normal LVEF Medical History Cataract 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 Essential tremor Heart disease Hypertension Sister Hypertensive disorder, systemic arterial Heart disease Brother , [place] at age 78. Heart disease Essential tremor Brother Heart disease Daughter Essential tremor Social History Smoking/Tobacco Use Status: Former Tobacco Use Tobacco: How many years used: 30 Smoking risk assessment performed?: Yes Alcohol Intake: never Drug use: Never Substance use type: does not use Adopted: No Caregiver/Support person: No Foster care: No Household members: spouse Housing: house Number of Children: 7 number of grandchildren: 25 Communication Needs: Hard of Hearing Education Level: high school Do you need help understanding health information?: Rarely current occupation: [employer] Pets and animals: Yes Pets and animals: dog(s) Sexually active: No Do you think of yourself as: straight/heterosexual Current gender identity: male What is your relationship status?: How often do you talk on the phone with friends or family?: three or more times per week How often do you get together with friends or relatives?: once per week Do you belong to any clubs or organized social groups?: yes Panel score (0-1 are the most socially isolated patients): 3 What type of physical activity do you participate in: walking and other Details: House work Duration: 15-30 minutes/day Frequency: 5-6 times per week Lindy/Orthodox: Jewish Seatbelt use: always Drive intox or ride w/intox local company truck driver: No Water heater temp set <120 deg: Yes Working smoke detector in home: Yes Fire extinguisher in home: Yes Carbon monox detector in home: Yes Do you feel safe at home: Yes Do you feel safe in your relationship?: Yes Additional Social history: He has 5 step-children in addition to 3 biological. Time Spent with Patient Time Spent with Patient: 45-69 minutes Time was spent: preparing to see the patient(eg.review tests), ordering medications,tests, procedures, referring, communicating with other health health care facilities inspector, indepentently interpreting results, counseling the patient and care coordination
--- NOTE | 2022-12-29 17:30 | CMDISCH_ITS ---
Date of service: 12/29/22 Time of Service: 17:30 LACE Index Scoring Tool Questions: Length of Stay (in days): 2 Was the patient admitted via the E.D.?: Yes Comorbidities: Diabetes w/o Complication and Chronic Pulmonary Disease E.D. Visits: 3 Answers: Total Score: 11 Risk of Readmission: High Risk Care Management Discharge Plan Reason for Hospitalization: Postop fever, possible perispinal abscess Discharge Plan: Bill will be transferred to the [facility] via [facility] wheelchair van coordinated by CM. He will follow up with the facility providers and plan of care. Patient/Family Education Needs: Expectations and limitations. Services Needed at Discharge: [facility] Facility
--- NOTE | 2022-12-30 10:59 | PT.INTREAT ---
Date of service: 12/29/22 Time of Service: 09:33 PT Notes Visit Reasons: Postop fever; Possible Perispinal Abscess Inpatient Physical Therapy Treatment Note [facility] Date: 12/29/22 PRECAUTIONS: Fall, standard, activity as tolerated SUBJECTIVE: morning patient supine in bed, agreeable to therapy. Afternoon sitting up in chair, agreeable to therapy. OBJECTIVE: PAIN: Reports no pain at rest, posterior hip pain kept him up last night, anterior right hip pain with ambulation. BED MOBILITY/TRANSFERS Rolling L/R: independent Supine-sit: independent Sit-supine: independent Sit-stand: independent Stand-sit: independent Bed-Chair: independent Chair-bed: independent GAIT Assistive Device: front wheeled walker Weight bearing: full Assist: standby Distance: Morning 225 feet, afternoon 350 feet Deviation: forward leaning posture, right hip flexors appear to fatigue with ambulation resulting in decreased step length R>L. Becomes short of breath with exertion but recovers quickly with standing rest. THEREX: Instructed patient in HEP including modified Jose Manuel stretch for anterior right thigh. Patient reports relief from burning sensation after this stretch. ASSESSMENT: Patient tolerates therapy well PLAN: Continue global strengthening per plan of care until patient is medically cleared for discharge TREATMENT CODE/TIME: morning [id number] gait 18 minutes [id number] ther ex 14 minutes beginning at 9:33. Afternoon [id number] Gait 25 minutes beginning at 14:15
--- NOTE | 2022-12-30 17:58 | INDS_ITS ---
PT Notes Visit Reasons: Postop fever; Possible Perispinal Abscess Physical Therapy Inpatient Discharge Summary Date: 12/29/2022 Dates of service: 12/25/2022 through 12/29/2022 This is a clinical summary of care provided for the duration of dates listed above. No charge was made in the completion of this documentation. Referring Doctor: Dr. Trevon Rose PT Orders: PT CONSULT: PT evaluate for functional mobility, ambulation capabilities Precautions: No bend lift or twist status post lumbar laminectomy fusion L3-5 Patient Profile/Admitting Diagnosis:?Fever.? ?82-year-old male in the emergency department who is 3 dayspostop status post laminectomy and facetectomy at [facility].? He had taken acetaminophen 2 hours prior to arrival in the setting of a fever up to 102 ?F that occurred at 2 AM.? His incision and drain? sites since are reportedly clean dry and intact.? He has had new urinary retention as he retained [address] scan was concerning for fluid and air in his lumbar piperacillin/tazobactam and vancomycin.? He is pending consult with orthopedics at [facility] and likely transfer in the setting of postoperative fever.? Labs significant for new leukocytosis with left shift. 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 as of 04/22/2015 Sensorineural hearing loss, bilateral (Chronic 08/29/17) Osteoarthritis of knee (Chronic 08/13/13) Hypomagnesemia (Chronic 10/07/17) Hyperlipidemia, unspecified (Chronic 07/09/11) LDL GOAL 100 Gastroesophageal reflux disease (Chronic 07/09/11) Essential tremor (Chronic 07/27/11) Essential hypertension (Chronic 07/09/11) GOAL <130/80 Depression (Chronic 06/04/14) Long-term Celexa Rx Chronic obstructive pulmonary disease (COPD) (Chronic 09/29/12) MILD, 08/2012 PFTs FEV1 2.06 (70% pred and FVC), no response to bronchodilator; 11/17/15 bronchoscopy [facility]: NEG for Af[employer], fungus, & bacteria; cytology NEG for malignancy Cardiomyopathy (Chronic 04/10/12) BPH (benign prostatic hyperplasia) (Chronic 04/10/12) ASCVD (arteriosclerotic cardiovascular disease) (Chronic) S/p 5 vessel CABG 1995 Echo 09/27/2014 with normal LVEF Medical History? 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 Arthroplasty of knee Extraction of cataract Status post coronary artery bypass graft (~1995) Social History/Home Situation: Patient lives in multilevel home with .? Has supportive children that live nearby. Current Functional Limitations: Bed mobility, transfer mobility, ambulation Equipment Owned/DME: Front wheel walker Subjective: NT. See most recent [employer] notes. Objective:? General Observation: NT. See most recent [employer] notes. Mental Status: NT. See most recent [employer] notes. Pain: NT. See most recent [employer] notes. Vital Signs: NT. See most recent [employer] notes. ROM: Right Upper Extremity: Within functional limits shoulder and elbow. Left Upper Extremity: Within functional limits shoulder and elbow. Right Lower Extremity: Patient performs heel slide to approximately 60 degrees hip flexion.? Knee flexion 90 degrees, ankle range of motion within functional limits Left Lower Extremity: Patient performs heel slide to approximately 70 degrees of flexion, 95 degrees knee flexion and ankle range of motion within functional limits. Strength: Right Upper Extremity: Glenohumeral joint flexion, abduction, elbow flexion and extension 4/5.? Good dragger out. Left Upper Extremity: Glenohumeral joint flexion, abduction, elbow flexion and extension 4/5.? Good dragger out. Right Lower Extremity: Patient perform straight leg raise to 10 degrees limited due to pain with minimal lag.? Knee flexion 4/5, knee extension 4 -/5, ankle dorsiflexion and plantarflexion 5/5, hip flexion 4 -/5. Left Lower Extremity: Patient perform straight leg raise to 15 degrees with pain and minimal lag.? Hip flexion 4 -/5.? Knee flexion 4 -/5, knee extension 4 -/5, ankle dorsiflexion and plantarflexion 5/5. ? Sensation: Patient reports intact sensation light touch bilateral lower extremities.? Myotomes 5/5 ankle plantarflexion, dorsiflexion, great toe extension.? Reports no saddle distribution of paresthesia. BED MOBILITY/TRANSFERS? Rolling L/R: independent Supine-sit: independent? Sit-supine: independent ? Sit-stand: independent? Stand-sit: independent? Bed-Chair: independent? Chair-bed:? independent ? GAIT? Assistive Device: front wheeled walker? Weight bearing: full Assist: standby ? Distance:? Morning 225 feet, afternoon 350 feet? Deviation: forward leaning posture, right hip flexors appear to fatigue with ambulation resulting in decreased step length R>L. Becomes short of breath with exertion but recovers quickly with standing rest.? Balance:? Static Sitting: Good Dynamic Sitting:? Good Static Standing: Fair fair Dynamic Standing:? Assessment:?? Patient is a 82 maleyear old ? referred to physical therapy services with the di agnosis of status post lumbar fusion.? Patient presents with clinical signs and symptoms consistent with admitting diagnosis that resulted to mobility limitations, gait instability, generalized weakness and overall ADL decline as demonstrated by the following impairment level findings:, ? Patient presents with clinical signs and symptoms consistent with current/admitting diagnoses that have resulted to mobility limitations, gait instability, generalized weakness, and overall ADL decline as demonstrated by the following impairment level findings: 1.? Decreased strength to B LE major muscle groups 2.? Impaired standing balance 3.? Impaired activity tolerance Impairments are contributing to the following functional limitations: 1.? Difficulty with ambulation without assistive device 2.? Increased completion time for mobility ADL performance 3.? Increased risk for falls 4.? Difficulty with managing steps alone safely ? Goals: Goals X1 week 1. Supine-Sit independent MET 2. Sit-Supine independent MET 3. Sit-Stand independent MET 4. Stand-Sit independent MET 5. Bed-Chair independent MET 6. Chair-Bed independent MET 7. Independent gait on level surface with use of least restrictive device for at least 300 feet without report of pain nor dyspnea maintaining nonweightbearing status NOT MET 8. Independent stair negotiation while holding onto bilateral rails for at least 10 steps without report of pain nor dyspnea maintaining nonweightbearing status NOT MET 9. Independent with home exercise program NOT MET 10. Good static and dynamic standing balance/tolerance NOT MET DISCHARGE RECOMMENDATIONS: [] ? Home with no services [] [] ? Home with services [specify] [] ? Home with outpatient PT [] [X] ? SNF for continued rehabilitation [] ? Penitentiary Care [] [] ? SNF versus LTC based on ability to participate and progress [] TREATMENT CODE/TIME:? NC Thank you for the opportunity to participate in the care of this patient. Nona Sanders PT, DPT, CLT [facility] [place], [place]
== END 2022-12-29 12:08 | disposition skilled nursing facility (03) | DRG 864 ==
LOC: ER 12:04 → MS 13:45
PROVIDERS: Internal Medicine; Nurse Practitioner Family; Student in an Organized Health Care Education/Training Program; Admitting Provider Family Medicine; Emergency Provider Emergency Medicine; PCP Nurse Practitioner Family; Visit Provider Family Medicine
DX: R50.82 Postprocedural fever (principal); I42.9 Cardiomyopathy, unspecified; R78.81 Bacteremia; Z16.21 Resistance to vancomycin; I10 Essential (primary) hypertension; K76.0 Fatty (change of) liver, not elsewhere classified; J47.9 Bronchiectasis, uncomplicated; E11.9 Type 2 diabetes mellitus without complications; G25.0 Essential tremor; I25.10 Atherosclerotic heart disease of native coronary artery without angina pectoris; Z98.1 Arthrodesis status; E78.00 Pure hypercholesterolemia, unspecified; Z95.1 Presence of aortocoronary bypass graft; R09.02 Hypoxemia; R53.1 Weakness; K59.00 Constipation, unspecified; K21.9 Gastro-esophageal reflux disease without esophagitis; R33.9 Retention of urine, unspecified; M47.816 Spondylosis without myelopathy or radiculopathy, lumbar region; Z68.36 Body mass index [BMI] 36.0-36.9, adult; E66.9 Obesity, unspecified; M70.62 Trochanteric bursitis, left hip; M70.61 Trochanteric bursitis, right hip; H90.3 Sensorineural hearing loss, bilateral; E78.5 Hyperlipidemia, unspecified; E83.42 Hypomagnesemia; F32.A Depression, unspecified; N40.0 Benign prostatic hyperplasia without lower urinary tract symptoms; Z87.891 Personal history of nicotine dependence; B95.2 Enterococcus as the cause of diseases classified elsewhere
CPT/HCPCS: 36415; 71275; 80048; 80053; 84145; 87040; 87077; 87637; 93005; 94640; 97116; 97162; 97530; 99222; J1650; 74177; 80202; 81003; 81015; 83605; 83735; 85025; 85610; 85730; 86140; 87086; 87186; 93010; 94664; 94760; 99232; 99233; 99239; J0131; J1170; J2270; J2543; J3490

== ENCOUNTER → 2022-12-27 14:30 | Outpatient (BNVA) | payer MEDICARE, SELFPAY | PROVIDERS: PCP Nurse Practitioner Family; Referring Provider Nurse Practitioner Family; Visit Provider Urology ==

== ENCOUNTER 2022-12-31 12:55 | Inpatient (IN) | payer MEDICARE, SELFPAY ==
[2022-12-31] VITALS (31 sets, daily range): BP systolic 94–136; BP diastolic 46–99; PULSE 66–77; RESP 16–28; TEMP 36.1–36.7; O2SAT 92–96
--- NOTE | 2022-12-31 14:18 | ED.GENADUL_ITS ---
Discharge Plan Discharge Details Chief Complaint: AMS/LOC Primary Care Provider: Sangita Rose ED Provider: Jem Allen Home Meds and New Rx's Prescriptions: No Action magnesium oxide 500 mg capsule 500 mg PO DAILY Qty: 90 3RF acetaminophen 500 mg tablet 1,000 mg PO TID PRN metoprolol succinate 25 mg tablet extended release 24 hr 25 mg PO DAILY Qty: 90 3RF acetylcysteine [NAC] 600 mg capsule 600 mg PO BID Qty: 60 7RF aspirin 81 MG tablet,delayed release (DR/EC) 81 mg PO DAILY (DME) Aerochamber Plus Flow-Vu,S Msk 1 EACH spacer 1 ea Miscellaneous PRN polyethylene glycol 3350 [GlycoLax] 527 GM powder 17 g PO DAILY (DME) lancets [OneTouch Delica Lancets] 1 EACH misc 1 ea Miscellaneous DAILY Qty: 100 Rx Instructions: E11.9 to maintain A1C less than 7.0 albuterol sulfate [ProAir HFA] 8.5 GM HFA aerosol inhaler 1 - 2 puff Inhalation Q4-6H PRN Qty: 1 3RF Rx Instructions: DISPENSE ALBUTEROL INHALER BRAND COVERED BY INSURANCE cholecalciferol (vitamin D3) 25 mcg (1,000 unit) tablet 1,000 unit PO BID fluticasone furoate-vilanterol [Breo Ellipta] 100-25 mcg/dose blister with device 1 ea Inhalation DAILY Qty: 60 12RF Rx Instructions: [facility] Incruse Ellipta 62.5 mcg/actuation blister with device 62.5 mcg Inhalation DAILY Qty: 30 12RF (DME) nebulizer and accessories See Rx Instructions .Route .MEDSUPPLY Qty: 1 0RF Rx Instructions: As directed clotrimazole [Lotrimin AF (clotrimazole)] 1 % cream 1 applic TP BID Qty: 45 3RF Rx Instructions: Apply thin film to affected area until resolution (usually 4 weeks) + 3-4 days pantoprazole 20 mg tablet,delayed release (DR/EC) 20 mg PO DAILY Qty: 90 3RF Rx Instructions: Take 20 mg daily once daily in the morning at least 30-60 minutes before first meal of the day atorvastatin 80 mg tablet 80 mg PO DAILY Qty: 90 3RF (DME) Blood Glucose Test Strip See Rx Instructions .ROUTE .MEDSUPPLY Qty: 100 3RF Rx Instructions: As directed to check daily morning fasting blood glucose. No insulin. Dispense covered brand. celecoxib [Celebrex] 100 mg capsule 100 mg PO BID PRN (Reason: pain) Qty: 180 0RF albuterol sulfate 2.5 mg/0.5 mL solution for nebulization 2.5 mg Inhalation Q4-6H PRN Qty: 180 3RF gabapentin 300 mg capsule 300 mg PO TID Qty: 270 0RF citalopram 40 mg tablet 40 mg PO DAILY Qty: 90 3RF Trelegy Ellipta 100-62.5-25 mcg Blister With Device 1 inh INHALATION DAILY ipratropium-albuterol 0.5 mg-3 mg(2.5 mg base)/3 mL Solution For Nebulization 3 ml INHALATION PRN PRN cyclobenzaprine 10 mg tablet 10 mg PO TID PRNQty: 20 0RF hydromorphone 2 mg tablet 2 mg PO Q4H PRN PRN sennosides [senna] 8.6 mg Tablet 8.6 mg PO BID PRN amoxicillin 500 mg capsule 1,000 mg PO TID 14 Days Qty: 84 0RF primidone 50 mg tablet 50 mg PO QHS MDD 150 mg Qty: 270 3RF HPI General Date/Time Provider Initiated Documentation: 12/31/22 13:10 . HPI Narrative: This 82-year-old male presents with report of Related Data Home Medications Medication Instructions Recorded Confirmed aspirin 81 mg tablet,delayed 81 mg PO DAILY 09/28/12 12/31/22 release inhalational spacing device 09/28/12 12/25/22 (Aerochamber Plus Flow-Vu,Small Mask) lancets 33 gauge (OneTouch Delica #100 ea 10/13/16 12/25/22 Lancets) polyethylene glycol 3350 17 17 g PO DAILY 10/13/16 12/31/22 gram/dose oral powder (GlycoLax) albuterol sulfate 90 mcg/actuation 1 - 2 puff inhalation Q4-6H PRN ##1 04/18/17 12/25/22 aerosol inhaler (ProAir HFA) magnesium oxide 500 mg capsule 500 mg PO DAILY #90 tab-caps 11/02/18 12/31/22 cholecalciferol (vitamin D3) 25 1,000 unit PO BID 11/01/19 12/31/22 mcg (1,000 unit) tablet acetaminophen 500 mg tablet 1,000 mg PO TID PRN 07/15/21 12/31/22 acetylcysteine 600 mg capsule (NAC) 600 mg PO BID #60 caps 10/20/21 12/25/22 fluticasone furoate 100 1 ea inhalation DAILY #60 ea 01/29/22 12/25/22 mcg-vilanterol 25 mcg/dose inhalation powder (Breo Ellipta) umeclidinium 62.5 mcg/actuation 62.5 mcg inhalation DAILY #30 ea 01/29/2205/09 blister powder for inhalation (Incruse Ellipta) nebulizer and accessories #1 ea 04/16/22 12/25/22 clotrimazole 1 % topical cream 1 applic topical BID tinea #45 06/02/22 12/25/22 (Lotrimin AF (clotrimazole)) grams pantoprazole 20 mg tablet,delayed 20 mg PO DAILY #90 tab-caps 06/21/22 12/31/22 release cyclobenzaprine 10 mg tablet 10 mg PO TID PRN #20 tabs 07/21/22 12/31/22 atorvastatin 80 mg tablet 80 mg PO DAILY #90 tabs 10/13/22 12/31/22 blood sugar diagnostic (Blood #100 ea 10/13/22 12/25/22 Glucose Test strips) metoprolol succinate 25 mg 25 mg PO DAILY #90 tab-caps 10/21/22 12/31/22 tablet,extended release 24 hr albuterol sulfate 2.5 mg/0.5 mL 2.5 mg (0.5 mL) inhalation Q4-6H 11/10/22 12/31/22 solution for nebulization PRN #180 vials celecoxib 100 mg capsule (Celebrex) 100 mg PO BID PRN pain #180 caps 11/10/22 12/25/22 gabapentin 300 mg capsule 300 mg PO TID #270 caps 11/24/22 12/31/22 citalopram 40 mg tablet 40 mg PO DAILY #90 tab-caps 11/26/22 12/31/22 hydromorphone 2 mg tablet 2 mg PO Q4H PRN PRN 12/25/22 12/31/22 sennosides 8.6 mg tablet (senna) 8.6 mg PO BID PRN 12/25/22 12/31/22 amoxicillin 500 mg capsule 1,000 mg PO TID 14 days #84 caps 12/29/22 12/31/22 primidone 50 mg tablet 50 mg PO QHS #270 tabs 12/29/22 12/31/22 fluticasone fur. 100 mcg-umeclid 1 inh inhalation DAILY 12/31/22 12/31/22 62.5 mcg-vilant 25 mcg inhalat.powder (Trelegy Ellipta) ipratropium 0.5 mg-albuterol 3 mg 3 ml inhalation PRN PRN 12/31/22 12/31/22 (2.5 mg base)/3 mL nebulization soln Previous Rx's Medication Instructions Recorded albuterol sulfate 90 mcg/actuation 1 - 2 puff inhalation Q4-6H PRN ##1 04/18/17 aerosol inhaler (ProAir HFA) magnesium oxide 500 mg capsule 500 mg PO DAILY #90 tab-caps 11/02/18 acetylcysteine 600 mg capsule (NAC) 600 mg PO BID #60 caps 10/20/21 fluticasone furoate 100 1 ea inhalation DAILY #60 ea 01/29/22 mcg-vilanterol 25 mcg/dose inhalation powder (Breo Ellipta) umeclidinium 62.5 mcg/actuation 62.5 mcg inhalation DAILY #30 ea 01/29/22 blister powder for inhalation (Incruse Ellipta) nebulizer and accessories #1 ea 04/16/22 clotrimazole 1 % topical cream 1 applic topical BID tinea #45 06/02/22 (Lotrimin AF (clotrimazole)) grams pantoprazole 20 mg tablet,delayed 20 mg PO DAILY #90 tab-caps 06/21/22 release cyclobenzaprine 10 mg tablet 10 mg PO TID PRN #20 tabs 07/21/22 atorvastatin 80 mg tablet 80 mg PO DAILY #90 tabs 10/13/22 blood sugar diagnostic (Blood #100 ea 10/13/22 Glucose Test strips) metoprolol succinate 25 mg 25 mg PO DAILY #90 tab-caps 10/21/22 tablet,extended release 24 hr albuterol sulfate 2.5 mg/0.5 mL 2.5 mg (0.5 mL) inhalation Q4-6H 11/10/22 solution for nebulization PRN #180 vials celecoxib 100 mg capsule (Celebrex) 100 mg PO BID PRN pain #180 caps 11/10/22 gabapentin 300 mg capsule 300 mg PO TID #270 caps 11/24/22 citalopram 40 mg tablet 40 mg PO DAILY #90 tab-caps 11/26/22 amoxicillin 500 mg capsule 1,000 mg PO TID 14 days #84 caps 12/29/22 primidone 50 mg tablet 50 mg PO QHS #270 tabs 12/29/22 Allergies Allergy/AdvReac Type Severity Reaction Status Date / Time codeine AdvReac Unknown Verified 12/31/22 13:02 General Stated Complaint: AMS/LOC YUE: 3 PFSH All Active Problems (Updated 12/30/22 @ 00:20 by WICHO LIVE) Urinary retention (Acute) Positive blood culture (Acute) S/P laminectomy (Acute) Constipation (Acute) Fever (Acute) Fever postop (Acute) Weakness (Acute) Degenerative spondylolisthesis (Acute) 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) Most recent MRI 08/25/2022 showing stenosis; Spine consult 11/01/2022 Degenerative joint disease (DJD) of lumbar spine (Acute) Effusion, right knee (Acute) Arthritis of right glenohumeral joint (Acute) Degenerative joint disease of right knee (Acute) Depo-Medrol injection: 05/07/2022 Bronchiectasis (Acute) Adrenal nodule (Acute) Rib pain on left side (Acute) Trochanteric bursitis of both hips (Chronic) Non-alcoholic fatty liver disease (Chronic 09/29/12) Type 2 diabetes mellitus (Chronic) Dx: 10/2018 Obesity (BMI 30-39.9) (Chronic) Advance directive in chart (Chronic 04/22/15) On-file with [facility] as of 04/22/2015 Sensorineural hearing loss, bilateral (Chronic 08/29/17) Osteoarthritis of knee (Chronic 08/13/13) Hypomagnesemia (Chronic 10/07/17) Hyperlipidemia, unspecified (Chronic 07/09/11) LDL GOAL 100 Gastroesophageal reflux disease (Chronic 07/09/11) Essential tremor (Chronic 07/27/11) Essential hypertension (Chronic 07/09/11) GOAL <130/80 Depression (Chronic 06/04/14) Long-term Celexa Rx Chronic obstructive pulmonary disease (COPD) (Chronic 09/29/12) MILD, 08/2012 PFTs FEV1 2.06 (70% pred and FVC), no response to bronchodilator; 11/17/15 bronchoscopy TXH: NEG for [employer], fungus, & bacteria; cytology NEG for malignancy Cardiomyopathy (Chronic 04/10/12) BPH (benign prostatic hyperplasia) (Chronic 04/10/12) ASCVD (arteriosclerotic cardiovascular disease) (Chronic) S/p 5 vessel CABG 1995 Echo 09/27/2014 with normal LVEF Medical History Cataract 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 Essential tremor Heart disease Hypertension Sister Hypertensive disorder, systemic arterial Heart disease Brother , CA at age 78. Heart disease Essential tremor Brother Heart disease Daughter Essential tremor Social History Smoking/Tobacco Use Status: Former Tobacco Use Tobacco: How many years used: 30 Smoking risk assessment performed?: Yes Alcohol Intake: never Drug use: Never Substance use type: does not use Adopted: No Caregiver/Support person: No Foster care: No Household members: spouse Housing: house Number of Children: 7 number of grandchildren: 25 Communication Needs: Hard of Hearing Education Level: high school Do you need help understanding health information?: Rarely current occupation: [employer] Pets and animals: Yes Pets and animals: dog(s) Sexually active: No Do you think of yourself as: straight/heterosexual Current gender identity: male What is your relationship status?: How often do you talk on the phone with friends or family?: three or more times per week How often do you get together with friends or relatives?: once per week Do you belong to any clubs or organized social groups?: yes Panel score (0-1 are the most socially isolated patients): 3 What type of physical activity do you participate in: walking and other Details: House work Duration: 15-30 minutes/day Frequency: 5-6 times per week Lindy/Oriental [employer]: [employer] Seatbelt use: always Drive intox or ride w/intox auto driver: No Water heater temp set <120 deg: Yes Working smoke detector in home: Yes Fire extinguisher in home: Yes Carbon monox detector in home: Yes Do you feel safe at home: Yes Do you feel safe in your relationship?: Yes Additional Social history: He has 5 step-children in addition to 3 biological. Course Vital Signs Vital signs: Vital Signs Temperature 36.7 C 12/31/22 12:58 Pulse 70 12/31/22 12:58 Respiratory Rate 16 12/31/22 12:58 Blood Pressure 130/99 H 12/31/22 12:58 Pulse Oximetry 96 12/31/22 12:58 Temperature 36.7 C 12/31/22 12:58 Pulse 70 12/31/22 12:58 Respiratory Rate 16 12/31/22 13:10 Respiratory Effort Normal, Non-Labored 12/31/22 13:10 Respiratory Depth Normal 12/31/22 13:10 Respiratory Pattern Normal 12/31/22 13:10 Blood Pressure 130/99 H 12/31/22 12:58 Blood Pressure Position Supine 12/31/22 12:58 Pulse Oximetry 96 12/31/22 12:58 Oxygen Delivery Method Room Air 12/31/22 12:58 Oxygen Flow Rate 0 12/31/22 12:58 Pain Level 6 12/31/22 12:58 Lab/Test Results Lab/Test Results: 12/31/22 14:06 Blood Blood Culture - Pending 12/31/22 14:06 Blood Blood Culture - Pending
--- NOTE | 2022-12-31 14:18 | NUR.NOTE ---
is[place] dressing applied to surgical site
[2022-12-31 14:31] LABS: Abs Immature Grans 0.27 10^3/uL (0.0-0.06); Absolute Lymphocyte Count 1.33 10^3/uL (1.2-3.4); Absolute Neutrophil Count 10.26 10^3/uL (1.2-6.7); Basophils % 0.4; Eosinophils % 3.1; HCT 36.5 % (40.0-50.0); Lymphocytes % 9.9; MCH 30.8 pg (27.0-33.0); MCHC 32.9 % (32.0-36.0); MCV 94 fL (80-95); MPV 10.2 fL (8.0-11.0); Monocytes % 8.1; Neutrophils % 76.5; Platelet Count 279 10^3/uL (130-400); RBC 3.89 10^6/uL (4.36-5.78); RDW 12.9 % (11.8-14.1); RDW-SD 44.5 fL; WBC 13.41 10^3/uL (4.4-10.8)
[2022-12-31 14:32] LABS: Absolute Basophil Count 0.05 10^3/uL (0.0-0.2); Absolute Eosinophil Count 0.42 10^3/uL (0.0-0.7); Absolute Monocyte Count 1.09 10^3/uL (0.1-0.8)
--- NOTE | 2022-12-31 14:45 | ED.GENADUL_ITS ---
Discharge Plan Discharge Details Chief Complaint: AMS/LOC Primary Care Provider: Sangita Rose ED Provider: Jem Allen Home Meds and New Rx's Prescriptions: No Action magnesium oxide 500 mg capsule 500 mg PO DAILY Qty: 90 3RF acetaminophen 500 mg tablet 1,000 mg PO TID PRN metoprolol succinate 25 mg tablet extended release 24 hr 25 mg PO DAILY Qty: 90 3RF acetylcysteine [NAC] 600 mg capsule 600 mg PO BID Qty: 60 7RF aspirin 81 MG tablet,delayed release (DR/EC) 81 mg PO DAILY (DME) Aerochamber Plus Flow-Vu,S Msk 1 EACH spacer 1 ea Miscellaneous PRN polyethylene glycol 3350 [GlycoLax] 527 GM powder 17 g PO DAILY (DME) lancets [OneTouch Delica Lancets] 1 EACH misc 1 ea Miscellaneous DAILY Qty: 100 Rx Instructions: E11.9 to maintain A1C less than 7.0 albuterol sulfate [ProAir HFA] 8.5 GM HFA aerosol inhaler 1 - 2 puff Inhalation Q4-6H PRN Qty: 1 3RF Rx Instructions: DISPENSE ALBUTEROL INHALER BRAND COVERED BY INSURANCE cholecalciferol (vitamin D3) 25 mcg (1,000 unit) tablet 1,000 unit PO BID fluticasone furoate-vilanterol [Breo Ellipta] 100-25 mcg/dose blister with device 1 ea Inhalation DAILY Qty: 60 12RF Rx Instructions: [facility] Incruse Ellipta 62.5 mcg/actuation blister with device 62.5 mcg Inhalation DAILY Qty: 30 12RF (DME) nebulizer and accessories See Rx Instructions .Route .MEDSUPPLY Qty: 1 0RF Rx Instructions: As directed clotrimazole [Lotrimin AF (clotrimazole)] 1 % cream 1 applic TP BID Qty: 45 3RF Rx Instructions: Apply thin film to affected area until resolution (usually 4 weeks) + 3-4 days pantoprazole 20 mg tablet,delayed release (DR/EC) 20 mg PO DAILY Qty: 90 3RF Rx Instructions: Take 20 mg daily once daily in the morning at least 30-60 minutes before first meal of the day atorvastatin 80 mg tablet 80 mg PO DAILY Qty: 90 3RF (DME) Blood Glucose Test Strip See Rx Instructions .ROUTE .MEDSUPPLY Qty: 100 3RF Rx Instructions: As directed to check daily morning fasting blood glucose. No insulin. Dispense covered brand. celecoxib [Celebrex] 100 mg capsule 100 mg PO BID PRN (Reason: pain) Qty: 180 0RF albuterol sulfate 2.5 mg/0.5 mL solution for nebulization 2.5 mg Inhalation Q4-6H PRN Qty: 180 3RF gabapentin 300 mg capsule 300 mg PO TID Qty: 270 0RF citalopram 40 mg tablet 40 mg PO DAILY Qty: 90 3RF Trelegy Ellipta 100-62.5-25 mcg Blister With Device 1 inh INHALATION DAILY ipratropium-albuterol 0.5 mg-3 mg(2.5 mg base)/3 mL Solution For Nebulization 3 ml INHALATION PRN PRN cyclobenzaprine 10 mg tablet 10 mg PO TID PRNQty: 20 0RF hydromorphone 2 mg tablet 2 mg PO Q4H PRN PRN sennosides [senna] 8.6 mg Tablet 8.6 mg PO BID PRN amoxicillin 500 mg capsule 1,000 mg PO TID 14 Days Qty: 84 0RF primidone 50 mg tablet 50 mg PO QHS MDD 150 mg Qty: 270 3RF Medical Decision Making 1527??82-year-old male with multiple medical problems including history of COPD, coronary artery disease, diabetes, here 9 days status post lumbar spinal fusion, hospitalized 12/27-12/29 for generalized weakness and fever, found to have single blood culture positive for VRE, currently on high-dose amoxicillin at rehab facility, returns with persistent altered mental status and observed shaking concerning for rigors. Patient is saturating well in no respiratory distress. Hemodynamically stable. Afebrile currently. Concern for persistent infectious process. Initial labs reviewed and leukocytosis noted. We will send blood cultures. Considered potential postoperative infection. Surgical wound without significant inflammatory changes. I called and spoke with orthopedics on-call at [facility] and discussed ED presentation and course including recent prior hospitalization. He does not feel infection related to surgery. Plan to obtain CT of the chest, abdomen and pelvis with lumbar spinal recons. I will initiate broad-spectrum coverage with Zosyn IV. Lab Data Lab results reviewed: Yes I reviewed the patient's lab results. Labs: 12/31/22 15:15 Blood Blood Culture - Pending 12/31/22 14:45 Blood Blood Culture - Pending Laboratory Tests Range/Units 12/31/22 12/31/22 12/31/22 13:35 13:35 15:13 WBC (4.4-10.8) 10^3/uL 13.41 H RBC (4.36-5.78) 10^6/uL 3.89 L Hgb (13.5-17.5) g/dL 12.0 L Hct (40.0-50.0) % 36.5 L MCV (80-95) fL 94 MCH (27.0-33.0) pg 30.8 MCHC (32.0-36.0) % 32.9 RDW (11.8-14.1) % 12.9 Plt Count (130-400) 10^3/uL 279 MPV (8.0-11.0) fL 10.2 Immature Gran % 2.0 Neutrophils % 76.5 Lymphocytes % 9.9 Monocytes % 8.1 Eosinophils % 3.1 Basophils % 0.4 Nucleated RBC % (0.0-0.3) % 0.0 Absolute Neutrophils (1.2-6.7) 10^3/uL 10.26 H Absolute Lymphocytes (1.2-3.4) 10^3/uL 1.33 Absolute Monocytes (0.1-0.8) 10^3/uL 1.09 H Absolute Eosinophils (0.0-0.7) 10^3/uL 0.42 Absolute Basophils (0.0-0.2) 10^3/uL 0.05 VBG Lactate (0.6-1.4) mmol/L 1.0 Sodium (136-145) mmol/L 135 L Potassium (3.5-5.1) mmol/L 4.0 Chloride (98-107) mmol/L 100 Carbon Dioxide (21.0-32.0) mmol/L 30.0 Anion Gap (3-11) mmol/L 5.0 BUN (7-18) mg/dL 15 Creatinine (0.70-1.30) mg/dL 0.8 Est GFR (CKD-EPI 2020) (mL/min/1.73m2) 87.27 Glucose (74-106) mg/dL 124 H Calcium (8.5-10.1) mg/dL 8.8 Magnesium (1.8-2.4) mg/dL 2.1 Total Bilirubin (0.2-1.0) mg/dL 0.7 AST (15-37) U/L 61 H ALT (16-63) U/L 74 H Alkaline Phosphatase (46-116) U/L 113 Troponin I (<or=60) ng/L < 50 Total Protein (6.4-8.2) g/dL 6.8 Albumin (3.4-5.0) g/dL 2.7 L TSH (0.36-3.74) uIU/mL 1.58 Urine Color (Yellow) Urine Clarity (Clear) Urine pH (5-8) Ur Specific [place] (1.005-1.025) Urine Protein (Negative) mg/dL Urine Ketones (Negative) mg/dL Urine Blood (Negative) Urine Nitrite (Negative) Urine Bilirubin (Negative) Urine Urobilinogen (Up to 0.2) mg/dL Ur Leukocyte Esterase (Negative) Urine Glucose (Negative) mg/dL Range/Units 12/31/22 15:15 WBC (4.4-10.8) 10^3/uL RBC (4.36-5.78) 10^6/uL Hgb (13.5-17.5) g/dL Hct (40.0-50.0) % MCV (80-95) fL MCH (27.0-33.0) pg MCHC (32.0-36.0) % RDW (11.8-14.1) % Plt Count (130-400) 10^3/uL MPV (8.0-11.0) fL Immature Gran % Neutrophils % Lymphocytes % Monocytes % Eosinophils % Basophils % Nucleated RBC % (0.0-0.3) % Absolute Neutrophils (1.2-6.7) 10^3/uL Absolute Lymphocytes (1.2-3.4) 10^3/uL Absolute Monocytes (0.1-0.8) 10^3/uL Absolute Eosinophils (0.0-0.7) 10^3/uL Absolute Basophils (0.0-0.2) 10^3/uL VBG Lactate (0.6-1.4) mmol/L Sodium (136-145) mmol/L Potassium (3.5-5.1) mmol/L Chloride (98-107) mmol/L Carbon Dioxide (21.0-32.0) mmol/L Anion Gap (3-11) mmol/L BUN (7-18) mg/dL Creatinine (0.70-1.30) mg/dL Est GFR (CKD-EPI 2020) (mL/min/1.73m2) Glucose (74-106) mg/dL Calcium (8.5-10.1) mg/dL Magnesium (1.8-2.4) mg/dL Total Bilirubin (0.2-1.0) mg/dL AST (15-37) U/L ALT (16-63) U/L Alkaline Phosphatase (46-116) U/L Troponin I (<or=60) ng/L Total Protein (6.4-8.2) g/dL Albumin (3.4-5.0) g/dL TSH (0.36-3.74) uIU/mL Urine Color (Yellow) Yellow Urine Clarity (Clear) Clear Urine pH (5-8) 7.0 Ur Specific [place] (1.005-1.025) 1.015 Urine Protein (Negative) mg/dL Negative Urine Ketones (Negative) mg/dL Negative Urine Blood (Negative) Small H Urine Nitrite (Negative) Negative Urine Bilirubin (Negative) Negative Urine Urobilinogen (Up to 0.2) mg/dL 4.0 H Ur Leukocyte Esterase (Negative) Negative Urine Glucose (Negative) mg/dL Negative HPI General Mode of arrival: EMS . Date/Time Provider Initiated Documentation: 12/31/22 13:10 . Limitations to Documentation: altered mental status . Information obtained by: patient and family . HPI Narrative: 82-year-old male with history of diabetes, COPD, cardiomyopathy noted in the past, status post recent lumbar posterior fusion on 12/22/2022, admitted here to [facility] on 12/27/2022 for fever and weakness and had single positive blood culture growing VRE, was discharged on 12/29/2022 on high-dose amoxicillin. Patient has been at rehab facility since discharge and has been noted to have increasing confusion, altered mental status and intermittent shaking spells per his . History is limited secondary to altered mental status. Related Data Home Medications Medication Instructions Recorded Confirmed aspirin 81 mg tablet,delayed 81 mg PO DAILY 09/28/12 12/31/22 release inhalational spacing device 09/28/12 12/25/22 (Aerochamber Plus Flow-Vu,Small Mask) lancets 33 gauge (Vaniauch Delkera #100 ea 10/13/16 12/25/22 Lancets) polyethylene glycol 3350 17 17 g PO DAILY 10/13/16 12/31/22 gram/dose oral powder (GlycoLax) albuterol sulfate 90 mcg/actuation 1 - 2 puff inhalation Q4-6H PRN ##1 04/18/17 12/25/22 aerosol inhaler (ProAir HFA) magnesium oxide 500 mg capsule 500 mg PO DAILY #90 tab-caps 11/02/18 12/31/22 cholecalciferol (vitamin D3) 25 1,000 unit PO BID 11/01/19 12/31/22 mcg (1,000 unit) tablet acetaminophen 500 mg tablet 1,000 mg PO TID PRN 07/15/21 12/31/22 acetylcysteine 600 mg capsule (NAC) 600 mg PO BID #60 caps 10/20/21 12/25/22 fluticasone furoate 100 1 ea inhalation DAILY #60 ea 01/29/22 12/25/22 mcg-vilanterol 25 mcg/dose inhalation powder (Breo Ellipta) umeclidinium 62.5 mcg/actuation 62.5 mcg inhalation DAILY #30 ea 01/29/22 12/25/22 blister powder for inhalation (Incruse Ellipta) nebulizer and accessories #1 ea 04/16/22 12/25/22 clotrimazole 1 % topical cream 1 applic topical BID tinea #45 06/02/22 12/25/22 (Lotrimin AF (clotrimazole)) grams pantoprazole 20 mg tablet,delayed 20 mg PO DAILY #90 tab-caps 06/21/22 12/31/22 release cyclobenzaprine 10 mg tablet 10 mg PO TID PRN #20 tabs 07/21/22 12/31/22 atorvastatin 80 mg tablet 80 mg PO DAILY #90 tabs 10/13/22 12/31/22 blood sugar diagnostic (Blood #100 ea 10/13/22 12/25/22 Glucose Test strips) metoprolol succinate 25 mg 25 mg PO DAILY #90 tab-caps 10/21/22 12/31/22 tablet,extended release 24 hr albuterol sulfate 2.5 mg/0.5 mL 2.5 mg (0.5 mL) inhalation Q4-6H 11/10/22 12/31/22 solution for nebulization PRN #180 vials celecoxib 100 mg capsule (Celebrex) 100 mg PO BID PRN pain #180 caps 11/10/22 12/25/22 gabapentin 300 mg capsule 300 mg PO TID #270 caps 11/24/22 12/31/22 citalopram 40 mg tablet 40 mg PO DAILY #90 tab-caps 11/26/22 12/31/22 hydromorphone 2 mg tablet 2 mg PO Q4H PRN PRN 12/25/22 12/31/22 sennosides 8.6 mg tablet (senna) 8.6 mg PO BID PRN 12/25/22 12/31/22 amoxicillin 500 mg capsule 1,000 mg PO TID 14 days #84 caps 12/29/22 12/31/22 primidone 50 mg tablet 50 mg PO QHS #270 tabs 12/29/22 12/31/22 fluticasone fur. 100 mcg-umeclid 1 inh inhalation DAILY 12/31/22 12/31/22 62.5 mcg-vilant 25 mcg inhalat.powder (Trelegy Ellipta) ipratropium 0.5 mg-albuterol 3 mg 3 ml inhalation PRN PRN 12/31/22 12/31/22 (2.5 mg base)/3 mL nebulization soln Previous Rx's Medication Instructions Recorded albuterol sulfate 90 mcg/actuation 1 - 2 puff inhalation Q4-6H PRN ##1 04/18/17 aerosol inhaler (ProAir HFA) magnesium oxide 500 mg capsule 500 mg PO DAILY #90 tab-caps 11/02/18 acetylcysteine 600 mg capsule (NAC) 600 mg PO BID #60 caps 10/20/21 fluticasone furoate 100 1 ea inhalation DAILY #60 ea 01/29/22 mcg-vilanterol 25 mcg/dose inhalation powder (Breo Ellipta) umeclidinium 62.5 mcg/actuation 62.5 mcg inhalation DAILY #30 ea 01/29/22 blister powder for inhalation (Incruse Ellipta) nebulizer and accessories #1 ea 04/16/22 clotrimazole 1 % topical cream 1 applic topical BID tinea #45 06/02/22 (Lotrimin AF (clotrimazole)) grams pantoprazole 20 mg tablet,delayed 20 mg PO DAILY #90 tab-caps 06/21/22 release cyclobenzaprine 10 mg tablet 10 mg PO TID PRN #20 tabs 07/21/22 atorvastatin 80 mg tablet 80 mg PO DAILY #90 tabs 10/13/22 blood sugar diagnostic (Blood #100 ea 10/13/22 Glucose Test strips) metoprolol succinate 25 mg 25 mg PO DAILY #90 tab-caps 10/21/22 tablet,extended release 24 hr albuterol sulfate 2.5 mg/0.5 mL 2.5 mg (0.5 mL) inhalation Q4-6H 11/10/22 solution for nebulization PRN #180 vials celecoxib 100 mg capsule (Celebrex) 100 mg PO BID PRN pain #180 caps 11/10/22 gabapentin 300 mg capsule 300 mg PO TID #270 caps 11/24/22 citalopram 40 mg tablet 40 mg PO DAILY #90 tab-caps 11/26/22 amoxicillin 500 mg capsule 1,000 mg PO TID 14 days #84 caps 12/29/22 primidone 50 mg tablet 50 mg PO QHS #270 tabs 12/29/22 Allergies Allergy/AdvReac Type Severity Reaction Status Date / Time codeine AdvReac Unknown Verified 12/31/22 13:02 General Stated Complaint: AMS/LOC YUE: 3 Review of Systems All systems reviewed & are unremarkable except as noted in HPI and below (Although unreliable secondary ) Constitutional Constitutional: Reports as per HPI, Reports fatigue, Denies headache(s) and Reports weakness ENT Ears, Nose, Mouth, and Throat: Denies headache(s) Cardiovascular Cardiovascular: Denies chest pain Respiratory Respiratory: Denies cough Gastrointestinal Gastrointestinal: Denies abdominal pain Neurologic Neurologic: Denies headache(s) and Reports weakness Endocrine Endocrine: Reports fatigue PFSH All Active Problems Urinary retention (Acute) Positive blood culture (Acute) S/P laminectomy (Acute) Constipation (Acute) Fever (Acute) Fever postop (Acute) Weakness (Acute) Degenerative spondylolisthesis (Acute) 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) Most recent MRI 08/25/2022 showing stenosis; Spine consult 11/01/2022 Degenerative joint disease (DJD) of lumbar spine (Acute) Effusion, right knee (Acute) Arthritis of right glenohumeral joint (Acute) Degenerative joint disease of right knee (Acute) Depo-Medrol injection: 05/07/2022 Bronchiectasis (Acute) Adrenal nodule (Acute) Rib pain on left side (Acute) Trochanteric bursitis of both hips (Chronic) Non-alcoholic fatty liver disease (Chronic 09/29/12) Type 2 diabetes mellitus (Chronic) Dx: 10/2018 Obesity (BMI 30-39.9) (Chronic) Advance directive in chart (Chronic 04/22/15) On-file with [facility] as of 04/22/2015 Sensorineural hearing loss, bilateral (Chronic 08/29/17) Osteoarthritis of knee (Chronic 08/13/13) Hypomagnesemia (Chronic 10/07/17) Hyperlipidemia, unspecified (Chronic 07/09/11) LDL GOAL 100 Gastroesophageal reflux disease (Chronic 07/09/11) Essential tremor (Chronic 07/27/11) Essential hypertension (Chronic 07/09/11) GOAL <130/80 Depression (Chronic 06/04/14) Long-term Celexa Rx Chronic obstructive pulmonary disease (COPD) (Chronic 09/29/12) MILD, 08/2012 PFTs FEV1 2.06 (70% pred and FVC), no response to bronchodilator; 11/17/15 bronchoscopy NC: NEG for [employer], fungus, & bacteria; cytology NEG for malignancy Cardiomyopathy (Chronic 04/10/12) BPH (benign prostatic hyperplasia) (Chronic 04/10/12) ASCVD (arteriosclerotic cardiovascular disease) (Chronic) S/p 5 vessel CABG 1995 Echo 09/27/2014 with normal LVEF Medical History Cataract 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 Essential tremor Heart disease Hypertension Sister Hypertensive disorder, systemic arterial Heart disease Brother , [place] at age 78. Heart disease Essential tremor Brother Heart disease Daughter Essential tremor Social History Smoking/Tobacco Use Status: Former Tobacco Use Tobacco: How many years used: 30 Smoking risk assessment performed?: Yes Alcohol Intake: never Drug use: Never Substance use type: does not use Adopted: No Caregiver/Support person: No Foster care: No Household members: spouse Housing: house Number of Children: 7 number of grandchildren: 25 Communication Needs: Hard of Hearing Education Level: high school Do you need help understanding health information?: Rarely current occupation: Retired [employer] Pets and animals: Yes Pets and animals: dog(s) Sexually active: No Do you think of yourself as: straight/heterosexual Current gender identity: male What is your relationship status?: How often do you talk on the phone with friends or family?: three or more times per week How often do you get together with friends or relatives?: once per week Do you belong to any clubs or organized social groups?: yes Panel score (0-1 are the most socially isolated patients): 3 What type of physical activity do you participate in: walking and other Det ails: House work Duration: 15-30 minutes/day Frequency: 5-6 times per week Lindy/Shinto: Episcopalian Seatbelt use: always Drive intox or ride w/intox driver supervisor: No Water heater temp set <120 deg: Yes Working smoke detector in home: Yes Fire extinguisher in home: Yes Carbon monox detector in home: Yes Do you feel safe at home: Yes Do you feel safe in your relationship?: Yes Additional Social history: He has 5 step-children in addition to 3 biological. Exam Const General: cooperative Orientation: alert, awake and confused Limitations: altered mental status HENMT Mouth: moist mucous membranes Eyes Conjunctivae: normal conjunctivae Sclera: normal sclerae Neck Neck: trachea midline and supple Resp Auscultation: clear to auscultation bilaterally, no rales, no rhonchi and no wheezes Cardio Rate: regular rate and not tachycardic Rhythm: regular rhythm GI Palpation: soft, not firm, no guarding, no masses, not rigid and nontender Skin General skin exam: no rashes or lesions noted Other: Sacral decubitus ulcer noted with some surrounding area erythema. surgical wound with sutures intact, no induration, erythema or drainage. Neuro General: patient alert, patient awake and tone normal Cognition: abnormal cognition Speech: speech normal Motor: other (Jordan) Extrem General: edema Laterality: bilateral Psych Appearance: grossly normal Speech and Movement: speech and movement normal Course Vital Signs Vital signs: Vital Signs Temperature 36.7 C 12/31/22 12:58 Pulse 70 12/31/22 12:58 Respiratory Rate 16 12/31/22 12:58 Blood Pressure 130/99 H 12/31/22 12:58 Pulse Oximetry 96 12/31/22 12:58 Temperature 36.7 C 12/31/22 12:58 Pulse 70 12/31/22 12:58 Respiratory Rate 16 12/31/22 13:10 Respiratory Effort Normal, Non-Labored 12/31/22 13:10 Respiratory Depth Normal 12/31/22 13:10 Respiratory Pattern Normal 12/31/22 13:10 Blood Pressure 130/99 H 12/31/22 12:58 Blood Pressure Position Supine 12/31/22 12:58 Pulse Oximetry 96 12/31/22 12:58 Oxygen Delivery Method Room Air 12/31/22 12:58 Oxygen Flow Rate 0 12/31/22 12:58 Pain Level 6 12/31/22 12:58 Lab/Test Results Lab/Test Results: 12/31/22 14:06 Blood Blood Culture - Pending 12/31/22 14:06 Blood Blood Culture - Pending Laboratory Tests Range/Units 12/31/22 13:35 WBC (4.4-10.8) 10^3/uL 13.41 H RBC (4.36-5.78) 10^6/uL 3.89 L Hgb (13.5-17.5) g/dL 12.0 L Hct (40.0-50.0) % 36.5 L MCV (80-95) fL 94 MCH (27.0-33.0) pg 30.8 MCHC (32.0-36.0) % 32.9 RDW (11.8-14.1) % 12.9 Plt Count (130-400) 10^3/uL 279 MPV (8.0-11.0) fL 10.2 Immature Gran % 2.0 Neutrophils % 76.5 Lymphocytes % 9.9 Monocytes % 8.1 Eosinophils % 3.1 Basophils % 0.4 Nucleated RBC % (0.0-0.3) % 0.0 Absolute Neutrophils (1.2-6.7) 10^3/uL 10.26 H Absolute Lymphocytes (1.2-3.4) 10^3/uL 1.33 Absolute Monocytes (0.1-0.8) 10^3/uL 1.09 H Absolute Eosinophils (0.0-0.7) 10^3/uL 0.42 Absolute Basophils (0.0-0.2) 10^3/uL 0.05
--- NOTE | 2022-12-31 15:00 | DI.CT_ITS ---
Exam(s) CT HEAD WO EXAM: CT HEAD WO CLINICAL HISTORY: altered mentation. TECHNIQUE: Imaging Protocol: Axial computed tomography images with coronal and sagittal reformatted images were created and reviewed COMPARISON: No exams were available for comparison FINDINGS: There are no skull fractures. There is no fluid in the visualized paranasal sinuses. There is no evidence of intracranial hemorrhage, mass effect, or shift of midline structures. There are no extra-axial fluid collections. The ventricles are not enlarged or shifted and there is no blo od within the ventricular system nor within the basal cisterns. The main finding here is abnormal area of hypodensity in the right occipito-temporal lobe consistent with acute infarct. No hemorrhage. Area of abnormal hypodensity here measures approximately 5 x 2 x 2 cm. IMPRESSION: Findings are consistent with acute right occipital lobe infarct, nonhemorrhagic. Called by myself to ER to ER physician. RADIATION DOSE DELIVERED: 908.05mGy.cm Total DLP DATA REPOSITORY: All CT scans at this facility are submitted to the National Radiology Data Registry (NRDR) Dose Index Registry (DIR) with the [employer] (ACR). RADIATION OPTIMIZATION: All CT scans at this facility use at least one of these dose optimization te chniques: automated exposure control; mA and/or kV adjustment per patient size (includes targeted exa ms where dose is matched to clinical indication); or iterative reconstruction.
--- NOTE | 2022-12-31 15:00 | DI.CT_ITS ---
Exam(s) CT CHEST/ABD/PEL W EXAM: CT CHEST/ABD/PEL W CLINICAL HISTORY: rigors, altered mental status. TECHNIQUE: Imaging Protocol: Axial computed tomography images with coronal and sagittal reformatted images were created and reviewed CONTRAST MATERIAL: Intravenous: Omnipaque 350 Contrast volume:100 ml Oral: None COMPARISON: CT CT ABDOMEN PELVIS W from 12/25/[address] CHEST PE CTA from 12/25/2022 FINDINGS: CHEST: LUNGS: Mild atelectasis in the right upper lobe and lingular segment left lung. No confluent infiltr ates. Mild benign-appearing increased markings noted in the right lower lobe. Mild pleural based in creased markings noted in the left lower lobe posterior basal segment. There are no pleural effusion s. No findings in the trachea and mainstem bronchi.. MEDIASTINUM: There is no hilar nor mediastinal adenopathy. CARDIAC: Sternotomy wires. Heart size normal. No pericardial effusion.Caliber of the thoracic aorta is within normal limits. OSSEOUS: No acute fractures. Nonacute appearing wedge fracture T11 noted.. ABDOMEN: There is no ascites. LIVER: There are no focal hepatic lesions nor dilatation of intrahepatic ducts. GALLBLADDER/BILIARY: No obvious gallbladder pathology. CBD is not dilated. PANCREAS: Surgical clip or calcification noted in the head of the pancreas. No other significant devine creatic findings. Pancreatic duct is not dilated. SPLEEN: Spleen is not enlarged. There are no intrasplenic lesions. Splenic and portal veins are allison nt. ADRENALS: There is a nodule in the lateral limb of the left adrenal gland again noted which measures 1.0 x 1.0 cm. Right adrenal gland unremarkable. KIDNEYS:. Multiple cysts noted in the right kidney, ranging up to5 cm size. Do not require further workup. No solid renal masses. Multiple calculi are noted the in the upper pole of the right kidney. Similar to previous. Few smaller cysts are noted in the opposite-left kidney. No calculi in left kidn ey. No hydronephrosis on either side. No solid renal masses. ABDOMINAL AORTA: Calcified but not enlarged. LYMPH NODES: There is no retroperitoneal nor paraaortic adenopathy. ABDOMINAL WALL: No evidence of significant anterior abdominal wall nor inguinal hernia. GI: There is no evidence of bowel obstruction.Fluid-filled small bowel loops probably represent enter itis pattern. Upper limits normal diameter PELVIS: LYMPH NODES: There is no intrapelvic nor inguinal adenopathy. GI: No evidence of appendicitis.No evidence of sigmoid diverticulitis. URINARY BLADDER: Fay catheter in. Bladder is not distended. Prostate size no appearance seminal v esicles unremarkable. REPRODUCTIVE: Prostate size upper normal. OSSEOUS: Posterior fusion hardware in lumbar spine is again noted at L3-4-5 levels secured by bilater al intrapedicular screws at these levels. Again noted is fluid with gas bubbles at posterior aspect of this multilevel operative site. Possible infectious. IMPRESSION: 1. Mild lung findings. No prominent filtrates nor pleural effusions. 2. Tri level fusion hardware in the lower lumbar spine. There is associated abnormal fluid collectio n posteriorly at this level and this contains gas bubbles. Consider abscess at this level. 3. Multiple benign-appearing cysts in the kidneys, larger and more numerous on the right side. These do not require further workup as they are simple cysts. There are no solid lesions. There are a fe w nonobstructive calculi in the right kidney again noted. Report called by myself to ER physician. RADIATION DOSE DELIVERED: 1895.16 mGy.cm Total DLP DATA REPOSITORY: All CT scans at this facility are submitted to the National Radiology Data Registry (NRDR) Dose Index Registry (DIR) with the [employer] ([employer]). RADIATION OPTIMIZATION: All CT scans at this facility use at least one of these dose optimization te chniques: automated exposure control; mA and/or kV adjustment per patient size (includes targeted exa ms where dose is matched to clinical indication); or iterative reconstruction.
[2022-12-31 15:01] LABS: ALT 74 U/L (16-63); AST 61 U/L (15-37); Albumin 2.7 g/dL (3.4-5.0); Alkaline Phosphatase 113 U/L (46-116); BUN 15 mg/dL (7-18); Bilirubin, Total 0.7 mg/dL (0.2-1.0); CREATININE 0.8 mg/dL (0.70-1.30); Calcium 8.8 mg/dL (8.5-10.1); Chloride 100 mmol/L (98-107); Estimated GFR 87.27 (mL/min/1.73m2); Glucose 124 mg/dL (74-106); Magnesium 2.1 mg/dL (1.8-2.4); Sodium 135 mmol/L (136-145); TSH (W/Ref FT4) 1.58 uIU/mL (0.36-3.74); Total Protein 6.8 g/dL (6.4-8.2); Troponin I < 50 ng/L (<or=60)
[2022-12-31 15:24] LABS: ESR 30 mm/hr (0-20)
[2022-12-31 15:26] LABS: Bilirubin Negative (Negative); Blood Small (Negative); Clarity Clear (Clear); Glucose Negative (Negative); Ketones Negative (Negative); Leukocyte Esterase Negative (Negative); Nitrite Negative (Negative); Specific Gravity 1.015 (1.005-1.025)
[2022-12-31 15:35] LABS: Bacteria Negative HPF (Negative); C & S Indicated? No; Casts Negative LPF (Negative); Crystals Negative HPF (Negative); Epithelial Cells Rare HPF (Negative); Mucus Negative (Negative); WBC 0-2 HPF (0-5)
[2022-12-31 15:36] LABS: Ammonia < 10 umol/L (11-32)
[2022-12-31] MEDS: HYDROmorphone 2 MG/ML SYR 1 MG IVP (15:52)
[2022-12-31] MEDS: Normal Saline - Diluent 50 ML VIAL IJ (15:53)
[2022-12-31] MEDS: Normal Saline Flush 10 ML SYR IVP (15:53)
[2022-12-31 15:54] LABS: C-Reactive Protein 9.87 mg/dL (0.0-0.3)
[2022-12-31] MEDS: Omnipaque 350 MG/ML 500 ML BTL-Imaging package 100 ML IJ (15:54)
--- NOTE | 2022-12-31 16:01 | DI.CT_ITS ---
Exam(s) CT LUMBAR SPINE RECONS EXAM: CT LUMBAR SPINE RECONS CLINICAL HISTORY: recons, pain post op. TECHNIQUE: Imaging Protocol: Axial computed tomography images with coronal and sagittal reformatted images were created and reviewed COMPARISON: CT CT CHEST/ABD/PEL W from 12/31/2022 FINDINGS: There is tri level fusion hardware secured by bilateral intrapedicular screws at L3, L4, and L5 level s. Mild anterolisthesis L4 upon L5. Relationship of the screws relative to the superior endplates i s satisfactory at each of the 3 levels. Removal of posterior osseous elements evident at L3 and L4 l evels. There is a gas bubble seen along the anterior spinal canal at L3-4 level which may be related to post surgical changes or possible abscess. Poorly defined fluid collection containing multiple gas bubbles is again noted in the postsurgical po sterior bed in the region the posterior osseous elements between L2 and L5. Either related to postop erative seroma but cannot exclude abscess/infectious etiology. IMPRESSION: 1. Postsurgical fusion changes L3-L4-L5 with gas bubble containing fluid posteriorly between L2 and L 5. Possibility for infected fluid-abscess at this level. 2. There is also a gas bubble along the anterior spinal canal at L3-4 level, possibly related to prio r surgery but cannot exclude infectious etiology in the spinal canal at this level. Contrast infused MRI scan would add sensitivity and specificity if clinically indicated. First read by [facility]. RADIATION DOSE DELIVERED: Total DLP DATA REPOSITORY: All CT scans at this facility are submitted to the National Radiology Data Registry (NRDR) Dose Index Registry (DIR) with the [employer] ([employer]). RADIATION OPTIMIZATION: All CT scans at this facility use at least one of these dose optimization te chniques: automated exposure control; mA and/or kV adjustment per patient size (includes targeted exa ms where dose is matched to clinical indication); or iterative reconstruction.
[2022-12-31] MEDS: PIPERACILLIN/TAZO 4.5 GM in Normal Saline 100 ML IVPB (16:42)
[2022-12-31 16:47] LABS: Source Nasal/Nares
[2022-12-31 17:05] LABS: Troponin I < 50 ng/L (<or=60)
[2022-12-31] MEDS: DOXYCYCLINE 100 MG in Normal Saline 100 ML IVPB (17:25)
[2022-12-31 17:29] LABS: COVID-19 PCR Negative (Negative)
--- NOTE | 2022-12-31 17:49 | W.EDPROG ---
Date of service: 12/31/22 Time of Service: 17:49 Medical Decision Making Patient signed out to me pending CT scan results. Had presented to ED with altered mental status and chills. He is postop from spinal surgery and had been admitted here December 25 to December 29 for fevers. Currently on high-dose amoxicillin. Discussed radiology findings with Dr. Lucas. Patient has an acute right occipital lobe infarct non-hemorrhagic. This is apparently new. CT of the body continues to show fluid collection now with gas bubbles present in the area of his previous spinal surgery. Patient at this time is neurologically intact. I do not detect any visual field cuts and he is non-focal. Imaging has been sent to [facility]. Call has been placed to transfer center to discuss patient further with [facility] team. I have updated the patient and his family. 20:00 - discussed patient's stroke with neurology at [facility]. Recommend full dose aspirin and continue his atorvastatin at 80 mg. Recommends MRI of the brain and either MRA of head and neck or CTA of head and neck as well as TTE. Discussed with orthospine who is reviewed the films. They continue to feel that this is all postoperative change and that he does not have postoperative wound infection. From their standpoint, he does not need to be on antibiotics. May be able to discontinue his high-dose amoxicillin that he had been discharged on. Patient is okay to keep here. Call placed to hospitalist to discuss admission. Lab Data Lab results reviewed: Yes I reviewed the patient's lab results. Exam Narrative Exam Narrative: Const: WDWN male in NAD. HEENT: NC/AT. Normal facial exam. Eyes: PERRL and EOMI. VF in tact. Lungs: Normal respiratory effort. Neuro: A+O x 3. Normal speech. Mildly confused. Cranial nerves II - XII grossly intact. No gross motor or sensory deficit. Ext: No C/C/E. Narrative Signed out pending results of CT scan. Has received IV Zosyn and IV doxycycline. Has remained hemodynamically stable and neurologically intact. Sign Out Sign Out Data: Sign Out Comment: followup CTs and reassess patient for dispo Last updated by Jem Allen MD at 12/31/22 16:08 Discharge Plan Disposition Patient Disposition: [facility] to [facility] Condition: Poor Discharge Details Clinical Impression: CVA (cerebral vascular accident) Primary Care Provider: Sang[facility] ED Provider: Kyle Hernandez [place] Meds and New Rx's Prescriptions: No Action magnesium oxide 500 mg capsule 500 mg PO DAILY Qty: 90 3RF acetaminophen 500 mg tablet 1,000 mg PO TID PRN metoprolol succinate 25 mg tablet extended release 24 hr 25 mg PO DAILY Qty: 90 3RF acetylcysteine [NAC] 600 mg capsule 600 mg PO BID Qty: 60 7RF aspirin 81 MG tablet,delayed release (DR/EC) 81 mg PO DAILY (DME) Aerochamber Plus Flow-Vu,S Msk 1 EACH spacer 1 ea Miscellaneous PRN polyethylene glycol 3350 [GlycoLax] 527 GM powder 17 g PO DAILY (DME) lancets [OneTouch Delica Lancets] 1 EACH misc 1 ea Miscellaneous DAILY Qty: 100 Rx Instructions: E11.9 to maintain A1C less than 7.0 albuterol sulfate [ProAir HFA] 8.5 GM HFA aerosol inhaler 1 - 2 puff Inhalation Q4-6H PRN Qty: 1 3RF Rx Instructions: DISPENSE ALBUTEROL INHALER BRAND COVERED BY INSURANCE cholecalciferol (vitamin D3) 25 mcg (1,000 unit) tablet 1,000 unit PO BID fluticasone furoate-vilanterol [Breo Ellipta] 100-25 mcg/dose blister with device 1 ea Inhalation DAILY Qty: 60 12RF Rx Instructions: [facility] Incruse Ellipta 62.5 mcg/actuation blister with device 62.5 mcg Inhalation DAILY Qty: 30 12RF (DME) nebulizer and accessories See Rx Instructions .Route .MEDSUPPLY Qty: 1 0RF Rx Instructions: As directed clotrimazole [Lotrimin AF (clotrimazole)] 1 % cream 1 applic TP BID Qty: 45 3RF Rx Instructions: Apply thin film to affected area until resolution (usually 4 weeks) + 3-4 days pantoprazole 20 mg tablet,delayed release (DR/EC) 20 mg PO DAILY Qty: 90 3RF Rx Instructions: Take 20 mg daily once daily in the morning at least 30-60 minutes before first meal of the day atorvastatin 80 mg tablet 80 mg PO DAILY Qty: 90 3RF (DME) Blood Glucose Test Strip See Rx Instructions .ROUTE .MEDSUPPLY Qty: 100 3RF Rx Instructions: As directed to check daily morning fasting blood glucose. No insulin. Dispense covered brand. celecoxib [Celebrex] 100 mg capsule 100 mg PO BID PRN (Reason: pain) Qty: 180 0RF albuterol sulfate 2.5 mg/0.5 mL solution for nebulization 2.5 mg Inhalation Q4-6H PRN Qty: 180 3RF gabapentin 300 mg capsule 300 mg PO TID Qty: 270 0RF citalopram 40 mg tablet 40 mg PO DAILY Qty: 90 3RF Trelegy Ellipta 100-62.5-25 mcg Blister With Device 1 inh INHALATION DAILY ipratropium-albuterol 0.5 mg-3 mg(2.5 mg base)/3 mL Solution For Nebulization 3 ml INHALATION PRN PRN cyclobenzaprine 10 mg tablet 10 mg PO TID PRNQty: 20 0RF hydromorphone 2 mg tablet 2 mg PO Q4H PRN PRN sennosides [senna] 8.6 mg Tablet 8.6 mg PO BID PRN amoxicillin 500 mg capsule 1,000 mg PO TID 14 Days Qty: 84 0RF primidone 50 mg tablet 50 mg PO QHS MDD 150 mg Qty: 270 3RF
--- NOTE | 2022-12-31 18:12 | DI.VRAD_ITS ---
Addendum created by Ezio Bangura MD on 12/31/2022 6:12:42 PM EDT: THIS REPORT CONTAINS FINDINGS THAT MAY BE CRITICAL TO PATIENT CARE. The findings were verbally communicated via telephone conference with Dr. Hernandez at 6:12 PM EDT on 12/31/2022. The findings were acknowledged and understood. Initial report created on 12/31/2022 6:12:21 PM EDT: PROCEDURE INFORMATION: Exam: CT Lumbar Spine Without Contrast Exam date and time: 12/31/2022 4:22 PM Age: 82 years old Clinical indication: Low back pain; Prior surgery; Surgery date: 3-7 days post-operative; Surgery type: Recent lower back surgery on December 22; Patient HX: Pain post op TECHNIQUE: Imaging protocol: Computed tomography of the lumbar spine without contrast. COMPARISON: CT LUMBAR SPINE RECONS 12/25/2022 4:58 AM FINDINGS: Bones/joints: Mild S-shaped scoliotic curvature is again seen at lower thoracic and lumbar levels with chronic compression fracture deformity again seen involving the body of T11. There is mild anterolisthesis of L4 upon L5 again evident and there is gross preservation of vertebral body height throughout lumbar levels no acute lumbar fractures detected. Postsurgical changes are again identified with bilateral transpedicular screw and mila fixation assemblies uniting the 3rd, 4th and 5th lumbar segments in association with laminectomy defect involving the posterior elements between L2 and L5. L1-L2: There is loss of disc space height and vacuum disc phenomena with endplate eburnation and sclerosis seen to the left of midline. Posterior osteocartilaginous ridging and facet arthropathy produce severe central canal stenosis at L1-L2 with concern for possible mass effect upon the distal cord/conus. L2-L3: Broad-based posterior osteocartilaginous ridging and facet arthropathy produce severe central canal stenosis. L3-L4: Beam hardening artifact produces obscuration of anatomic detail in the region the spinal canal with a gas bubble seen along the anterior spinal canal at this level and no severe central canal stenosis evident. L4-L5: Beam hardening artifact produces obscuration of anatomic detail in the region of the spinal canal with no severe canal stenosis identified at this level. L5-S1: No severe canal stenosis evident at the lumbosacral junction. Soft tissues: Poorly defined fluid collection containing multiple small gas bubbles is again seen in the region of the postsurgical defect involving the posterior elements between L2 and L5 and while this could reflect postoperative seroma/hematoma, the possibility of this fluid being infected cannot be excluded. IMPRESSION: 1. There is mild anterolisthesis of L4 upon L5 again evident and there is gross preservation of vertebral body height throughout lumbar levels no acute lumbar fractures detected. Postsurgical changes are again identified with bilateral transpedicular screw and mila fixation assemblies uniting the 3rd, 4th and 5th lumbar segments in association with laminectomy defect involving the posterior elements between L2 and L5. 2. Canal stenoses at L1-L2 and L2-L3 could be better evaluated with contrast-enhanced MRI. 3. A gas bubble is seen along the anterior spinal canal at the L3-L4 level and could represent postsurgical changes related to recent surgery although epidural abscess or other intrathecal infection cannot be excluded on the basis of this noncontrast CT examination. Enhanced MRI could provide additional diagnostic information. 4. Poorly defined fluid collection containing multiple small gas bubbles is again seen in the region of the postsurgical defect involving the posterior elements between L2 and L5 and while this could reflect postoperative seroma/hematoma, the possibility of this fluid being infected cannot be excluded. Again, enhanced MRI could provide additional diagnostic information. Dictated and Authenticated by: Ezio Bangura MD. Ordering:ILIANA Parish MD
[2022-12-31] MEDS: Acetaminophen 500 MG TAB 1000 MG PO (18:35)
[2022-12-31] MEDS: Aspirin 325 MG TAB PO (19:46)
--- NOTE | 2022-12-31 22:08 | W.PM.HP.N ---
Date of service: 12/31/22 Time of Service: 22:08 Assessment and Plan Assessment and plan (1) Occipital cerebral infarction: Status: Acute Assessment and plan: recent right occipital CVA, non-hemorrhagic. continue aspirin (unclear as to whether or not Plavix has any role at this stage, [facility] neurology did not make recommendations for this); continue high dose statin, optimize DM; consult P.T. and SHOE REPAIRER APPRENTICE tomorrow and neurology on Tuesday. Get echo and MRI on Tuesday and CTA tomorrow. (2) Chronic low back pain with bilateral sciatica: Status: Chronic Assessment and plan: hold celebrex in setting of CVA; use topical voltaren gel, APAP, and prn hydrocodone. (3) S/P laminectomy: Status: Acute Assessment and plan: follow up w/ [facility] ortho upon discharge; they have reviewed repeat Lumbar CT and do not feel there is any evidence for infection (4) Fever: Status: Acute Assessment and plan: I think that the one bottle positive out of 8 bottles that grew an Enterococcus species which was not fecium and not faecalis probably was a contaminant. nevertheless I.D. recommended 2week course of amoxacillin. I think his fevers could be undertreated tick borne illness, tick panel drawn while in the ED. cont. doxycycline for now (5) Positive blood culture: Status: Acute Assessment and plan: as above (6) Type 2 diabetes mellitus: Status: Chronic Assessment and plan: patient did not appear to be on any DM meds. i see no recent HbA1c. I will put him on insulin sliding scale along w/ accuchecks ac/hs and check an A1C Qualifiers: Diabetes mellitus custodial insulin use: without custodial use Diabetes mellitus complication status: without complication Qualified Code(s): E11.9 - Type 2 diabetes mellitus without complications (7) Essential hypertension: Status: Chronic Assessment and plan: continue home med for his HTN and CAD (8) Urinary retention: Status: Acute Assessment and plan: continue indwelling rodriguez (9) Chronic obstructive pulmonary disease (COPD): Status: Chronic Assessment and plan: continue home inhalers (LABA/ICS, LAMA and prn MOHAN) Qualifiers: COPD type: unspecified COPD Qualified Code(s): J44.9 - Chronic obstructive pulmonary disease, unspecified History of Present Illness History of Present Illness Chief Complaint: confusion Narrative: 82 yr old male w/ PMH of 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 Local bone grafting performed at [facility] by Dr. Cabrera on 12/22/22. He was discharged 12/25 and within hours presented to the E.D. w/ complaints of fever and weakness. Workup doing hospitalization at [facility] 12/25-12/29/[address] of abdomen and pelvis, chest and lumbar spine. CT chest showed tracheobronchomalacia but no PE or aneurysm and no pneumonia. CT abdomen and pelvis demonstrated air in fluid within the operative field of the lumbar spine which was felt to be post surgical changes but superimposed infection could not be ruled out. Orthopedic at [facility] was contacted both by our ED dept and our hospitalist and ortho reviewed the finding and did not feel that this represented infection and did not recommend antibiotics for this. Further evaluation of his fevers included blood cultures 1 bottle aerobic bottle grew Bacillus species and Enterococcus casseliflavus. This was 1 bottle out of one set from a total of 4 sets (8 bottles) drawn on 12/25/22. Patient had WBC OF 13,400 on admission that declined to 10,450 by 12/29 after antibiotics.He was given Zosyn in the ED and subsequently treated w/ Vancomycin until the first culture came back w/ Enterococcus that was resistant to Vancomycin. I.D. at [facility] was contacted to discuss his optimum antibiotic regimen and they recommend repeat his blood cultures on the day of his discharge and treat him w/ high dose amoxacillin 1000 mg tid x 14 days. Patient was discharge to [facility] on 12/29 for resumption of his physical therapy and rehabilitation from his spine surgery w/ follow up w/ [facility] spine surgery in 2 weeks. He now presents back to the ED one day after discharge w/ symptoms of acute confusion, generalized weakness and chills. On arrival, he was afebrile and hemodynamically stable. Repeat CT scan non-contrast of his demonstrated mutliple air flud bubble over the epidural lumbar spine. These were reviewed by [facility] ortho who still feels that this does not represent an infection of his surgical site. They do not feel he needs to be on antibiotics. Patient was given dose of Zosyn while the ED provider was awaiting discussion w/ [facility] ortho. Patient then subsequently had CT of head to evaluate his acute confusion and this demonstrated an acute right occipital lobe non-hemorrhagic infarct. Dr. Hernandez who took over for Dr. Allen then spoke w/ [facility] neurology who recommended full dose aspirin and to follow up w/ either CTA of neck and brain and an MRI of the brain or both MRI and MRA (brain and cervical vessels) and an echo w/ bubble study and to keep on high dose statins and full strength aspirin. Note patient had already been on atorvastatin 80 mg daily along w/ aspirin 81 mg daily for his CAD. His co-morbidities include CAD s/p 5 vessel CABG in 1995, ischemic cardiomyopathy for which he has recovered (last echo 09/27/14 normal LV and RV size and function, no LVH, LVEF 65%), T2DM, HTN, HLD, NAFLD, COPD, bronchiectasis, & essential tremor. Also of note patient was treated for Tick bite 11/17/22 2 days after exposure and was on doxycycline prophylaxis but not full treatment. As part of his infectious workup a tick panel was drawn while he was in the ED today and he was given doxycyline iv. Patient is now admitted for evaluation of his stroke including follow up MRI brain, CTA brain and cervical vessels, echo w/ bubble study, PT and SHOE REPAIRER APPRENTICE evaluation. He is feeling better and seems to be more oriented and coherent in speech and though process since admission to the medical floor. Review of Systems All systems reviewed & are unremarkable except as noted in HPI and below 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) Most recent MRI 08/25/2022 showing stenosis; Spine consult 11/01/2022 Degenerative joint disease (DJD) of lumbar spine (Acute) Effusion, right knee (Acute) Arthritis of right glenohumeral joint (Acute) Degenerative joint disease of right knee (Acute) Depo-Medrol injection: 05/07/2022 Bronchiectasis (Acute) Adrenal nodule (Acute) Rib pain on left side (Acute) Trochanteric bursitis of both hips (Chronic) Non-alcoholic fatty liver disease (Chronic 09/29/12) Type 2 diabetes mellitus (Chronic) Dx: 10/2018 Obesity (BMI 30-39.9) (Chronic) Advance directive in chart (Chronic 04/22/15) On-file with [facility] as of 04/22/2015 Sensorineural hearing loss, bilateral (Chronic 08/29/17) Osteoarthritis of knee (Chronic 08/13/13) Hypomagnesemia (Chronic 10/07/17) Hyperlipidemia, unspecified (Chronic 07/09/11) LDL GOAL 100 Gastroesophageal reflux disease (Chronic 07/09/11) Essential tremor (Chronic 07/27/11) Essential hypertension (Chronic 07/09/11) GOAL <130/80 Depression (Chronic 06/04/14) Long-term Celexa Rx Chronic obstructive pulmonary disease (COPD) (Chronic 09/29/12) MILD, 08/2012 PFTs FEV1 2.06 (70% pred and FVC), no response to bronchodilator; 11/17/15 bronchoscopy [facility]: NEG for Af[employer], fungus, & bacteria; cytology NEG for malignancy Cardiomyopathy (Chronic 04/10/12) BPH (benign prostatic hyperplasia) (Chronic 04/10/12) ASCVD (arteriosclerotic cardiovascular disease) (Chronic) S/p 5 vessel CABG 1995 Echo 09/27/2014 with normal LVEF Medical History Cataract 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 Essential tremor Heart disease Hypertension Sister Hypertensive disorder, systemic arterial Heart disease Brother , [place] at age 78. Heart disease Essential tremor Brother Heart disease Daughter Essential tremor Social History Smoking/Tobacco Use Status: Former Tobacco Use Tobacco: How many years used: 30 Smoking risk assessment performed?: Yes Alcohol Intake: never Drug use: Never Substance use type: does not use Adopted: No Caregiver/Support person: No Foster care: No Household members: spouse Housing: house Number of Children: 7 number of grandchildren: 25 Communication Needs: Hard of Hearing Education Level: high school Do you need help understanding health information?: Rarely current occupation: [employer] Pets and animals: Yes Pets and animals: dog(s) Sexually active: No Do you think of yourself as: straight/heterosexual Current gender identity: male What is your relationship status?: How often do you talk on the phone with friends or family?: three or more times per week How often do you get together with friends or relatives?: once per week Do you belong to any clubs or organized social groups?: yes Panel score (0-1 are the most socially isolated patients): 3 What type of physical activity do you participate in: walking and other Details: House work Duration: 15-30 minutes/day Frequency: 5-6 times per week Lindy/Nondenominational: Restoration Seatbelt use: always Drive intox or ride w/intox jinrikisha driver: No Water heater temp set <120 deg: Yes Working smoke detector in home: Yes Fire extinguisher in home: Yes Carbon monox detector in home: Yes Do you feel safe at home: Yes Do you feel safe in your relationship?: Yes Additional Social history: He has 5 step-children in addition to 3 biological. Meds Allergies and Home Medications Allergies Allergy/AdvReac Type Severity Reaction Status Date / Time codeine AdvReac Unknown Verified 12/31/22 13:02 Home Medications Medication Instructions Recorded Confirmed Type aspirin 81 mg tablet,delayed 81 mg PO DAILY 09/28/12 12/31/22 History release inhalational spacing device 09/28/12 12/31/22 History (Aerochamber Plus Flow-Vu,Small Mask) lancets 33 gauge (OneTouch Delkera #100 ea 10/13/16 12/31/22 History Lancets) polyethylene glycol 3350 17 17 g PO DAILY 10/13/16 12/31/22 History gram/dose oral powder (GlycoLax) albuterol sulfate 90 mcg/actuation 1 - 2 puff inhalation Q4-6H PRN ##1 04/18/17 12/31/22 Rx aerosol inhaler (ProAir HFA) magnesium oxide 500 mg capsule 500 mg PO DAILY #90 tab-caps 11/02/18 12/31/22 Rx cholecalciferol (vitamin D3) 25 1,000 unit PO BID 11/01/19 12/31/22 History mcg (1,000 unit) tablet acetaminophen 500 mg tablet 1,000 mg PO TID PRN 07/15/21 12/31/22 History acetylcysteine 600 mg capsule (NAC) 600 mg PO BID #60 caps 10/20/21 12/31/22 Rx fluticasone furoate 100 1 ea inhalation DAILY #60 ea 01/29/22 12/31/22 Rx mcg-vilanterol 25 mcg/dose inhalation powder (Breo Ellipta) umeclidinium 62.5 mcg/actuation 62.5 mcg inhalation DAILY #30 ea 01/29/22 12/31/22 Rx blister powder for inhalation (Incruse Ellipta) nebulizer and accessories #1 ea 04/16/22 12/31/22 Rx clotrimazole 1 % topical cream 1 applic topical BID tinea #45 06/02/22 12/31/22 Rx (Lotrimin AF (clotrimazole)) grams pantoprazole 20 mg tablet,delayed 20 mg PO DAILY #90 tab-caps 06/21/22 12/31/22 Rx release cyclobenzaprine 10 mg tablet 10 mg PO TID PRN #20 tabs 07/21/22 12/31/22 Rx atorvastatin 80 mg tablet 80 mg PO DAILY #90 tabs 10/13/22 12/31/22 Rx blood sugar diagnostic (Blood #100 ea 10/13/22 12/31/22 Rx Glucose Test strips) metoprolol succinate 25 mg 25 mg PO DAILY #90 tab-caps 10/21/22 12/31/22 Rx tablet,extended release 24 hr albuterol sulfate 2.5 mg/0.5 mL 2.5 mg (0.5 mL) inhalation Q4-6H 11/10/22 12/31/22 Rx solution for nebulization PRN #180 vials celecoxib 100 mg capsule (Celebrex) 100 mg PO BID PRN pain #180 caps 11/10/22 12/31/22 Rx gabapentin 300 mg capsule 300 mg PO TID #270 caps 11/24/22 12/31/22 Rx citalopram 40 mg tablet 40 mg PO DAILY #90 tab-caps 11/26/22 12/31/22 Rx hydromorphone 2 mg tablet 2 mg PO Q4H PRN PRN 12/25/22 12/31/22 History sennosides 8.6 mg tablet (senna) 8.6 mg PO BID PRN 12/25/22 12/31/22 History amoxicillin 500 mg capsule 1,000 mg PO TID 14 days #84 caps 12/29/22 12/31/22 Rx primidone 50 mg tablet 50 mg PO QHS #270 tabs 12/29/22 12/31/22 Rx fluticasone fur. 100 mcg-umeclid 1 inh inhalation DAILY 12/31/22 12/31/22 History 62.5 mcg-vilant 25 mcg inhalat.powder (Trelegy Ellipta) ipratropium 0.5 mg-albuterol 3 mg 3 ml inhalation PRN PRN 12/31/22 12/31/22 History (2.5 mg base)/3 mL nebulization soln Exam Narrative Exam Narrative: Alert and oriented x4 HEENT: Atraumatic normocephalic, pupils equally round reactive to light and accommodation, extraocular motion intact, TMs intact, nares moist and patent without exudate or bleeding, oropharynx noninjected without exudate, dentures present Neck: Supple, nontender, without thyromegaly or lymphadenopathy or JVD. Normal carotid pulses Lungs: Clear to auscultation and percussion Heart: Regular rate and rhythm without murmur rub or gallop. Normal apical impulse; chest wall w/ well healed median sternotomy scar Abdomen: Nondistended, normal bowel sounds, nontender to palpation or percussion, no organomegaly, no bruits, no palpable masses Genitalia and rectal exam: Deferred Extremities: Normal range of motion with normal strength. No peripheral cyanosis or edema. decreased pedal pulses Neurologic: Cranial nerves II through XII grossly within normal limits. Normal strength and sensation over the face trunk and extremities. patient w/ intention tremors in both hands, no past pointing, Babinski on the right was absent but was positive on the left Results Labs 12/31/22 13:35 12/31/22 13:35 Labs: Laboratory Results - last 24 hr 12/31/22 12/31/22 12/31/22 13:35 13:35 15:13 WBC 13.41 H RBC 3.89 L Hgb 12.0 L Hct 36.5 L MCV 94 MCH 30.8 MCHC 32.9 RDW 12.9 Plt Count 279 MPV 10.2 Immature Gran % 2.0 Neutrophils % 76.5 Lymphocytes % 9.9 Monocytes % 8.1 Eosinophils % 3.1 Basophils % 0.4 Nucleated RBC % 0.0 Absolute Neutrophils 10.26 H Absolute Lymphocytes 1.33 Absolute Monocytes 1.09 H Absolute Eosinophils 0.42 Absolute Basophils 0.05 ESR VBG Lactate Sodium 135 L Potassium 4.0 Chloride 100 Carbon Dioxide 30.0 Anion Gap 5.0 BUN 15 Creatinine 0.8 Est GFR (CKD-EPI 2020) 87.27 Glucose 124 H Calcium 8.8 Magnesium 2.1 Total Bilirubin 0.7 AST 61 H ALT 74 H Alkaline Phosphatase 113 Ammonia < 10 L Troponin I < 50 C-Reactive Protein Total Protein 6.8 Albumin 2.7 L TSH 1.58 Urine Color Urine Clarity Urine pH Ur Specific [place] Urine Protein Urine Ketones Urine Blood Urine Nitrite Urine Bilirubin Urine Urobilinogen Ur Leukocyte Esterase Urine RBC Urine WBC Ur Epithelial Cells Urine Crystals Urine Bacteria Urine Casts Urine Mucus Ur Culture Indicated? Urine Glucose COVID-19 Source SARS-CoV-2 (PCR) 12/31/22 12/31/22 12/31/22 15:13 15:13 15:13 WBC RBC Hgb Hct MCV MCH MCHC RDW Plt Count MPV Immature Gran % Neutrophils % Lymphocytes % Monocytes % Eosinophils % Basophils % Nucleated RBC % Absolute Neutrophils Absolute Lymphocytes Absolute Monocytes Absolute Eosinophils Absolute Basophils ESR 30 H VBG Lactate 1.0 Sodium Potassium Chloride Carbon Dioxide Anion Gap BUN Creatinine Est GFR (CKD-EPI 2020) Glucose Calcium Magnesium Total Bilirubin AST ALT Alkaline Phosphatase Ammonia Troponin I C-Reactive Protein 9.87 H Total Protein Albumin TSH Urine Color Urine Clarity Urine pH Ur Specific [place] Urine Protein Urine Ketones Urine Blood Urine Nitrite Urine Bilirubin Urine Urobilinogen Ur Leukocyte Esterase Urine RBC Urine WBC Ur Epithelial Cells Urine Crystals Urine Bacteria Urine Casts Urine Mucus Ur Culture Indicated? Urine Glucose COVID-19 Source SARS-CoV-2 (PCR) 12/31/22 12/31/22 12/31/22 15:15 16:45 16:45 WBC RBC Hgb Hct MCV MCH MCHC RDW Plt Count MPV Immature Gran % Neutrophils % Lymphocytes % Monocytes % Eosinophils % Basophils % Nucleated RBC % Absolute Neutrophils Absolute Lymphocytes Absolute Monocytes Absolute Eosinophils Absolute Basophils ESR VBG Lactate Sodium Potassium Chloride Carbon Dioxide Anion Gap BUN Creatinine Est GFR (CKD-EPI 2020) Glucose Calcium Magnesium Total Bilirubin AST ALT Alkaline Phosphatase Ammonia Troponin I < 50 C-Reactive Protein Total Protein Albumin TSH Urine Color Yellow Urine Clarity Clear Urine pH 7.0 Ur Specific [place] 1.015 Urine Protein Negative Urine Ketones Negative Urine Blood Small H Urine Nitrite Negative Urine Bilirubin Negative Urine Urobilinogen 4.0 H Ur Leukocyte Esterase Negative Urine RBC 3-5 H Urine WBC 0-2 Ur Epithelial Cells Rare Urine Crystals Negative Urine Bacteria Negative Urine Casts Negative Urine Mucus Negative Ur Culture Indicated? No Urine Glucose Negative COVID-19 Source Nasal/Nares SARS-CoV-2 (PCR) Negative Last Vital Signs Temp 36.7 C 12/31/22 12:58 Pulse 67 12/31/22 21:16 Resp 17 12/31/22 21:20 BP 125/63 12/31/22 21:16 Pulse Ox 94 12/31/22 20:40 Time Spent Time spent with Patient: 55-74 minutes Time was spent: preparing to see the patient(eg.review tests), obtaining and/or reviewing separately otained hiistory, ordering medications,tests, procedures, referring, communicating with other health primary care coordinator, indepentently interpreting results, counseling the patient and care coordination
[2023-01-01] VITALS (10 sets, daily range): BP systolic 129–162; BP diastolic 66–90; PULSE 60–88; RESP 17–20; TEMP 36.5–37.2; O2SAT 93–98
[2023-01-01] MEDS: Primidone 50 MG TAB PO ×2 (00:12→21:44)
[2023-01-01] MEDS: Lactated Ringers 1,000 ML 100 ML IV (01:10)
[2023-01-01 06:40] LABS: Abs Immature Grans 0.24 10^3/uL (0.0-0.06); Absolute Lymphocyte Count 1.05 10^3/uL (1.2-3.4); Basophils % 0.6; Eosinophils % 4.2; HCT 34.6 % (40.0-50.0); HGB 11.6 g/dL (13.5-17.5); Immature Grans % 1.9; Lymphocytes % 8.4; MCH 31.2 pg (27.0-33.0); MCHC 33.5 % (32.0-36.0); MCV 93 fL (80-95); MPV 9.7 fL (8.0-11.0); Neutrophils % 76.9; Platelet Count 291 10^3/uL (130-400); RBC 3.72 10^6/uL (4.36-5.78); RDW 12.7 % (11.8-14.1); WBC 12.53 10^3/uL (4.4-10.8)
[2023-01-01 06:41] LABS: Absolute Basophil Count 0.08 10^3/uL (0.0-0.2); Absolute Eosinophil Count 0.53 10^3/uL (0.0-0.7); Absolute Neutrophil Count 9.64 10^3/uL (1.2-6.7)
[2023-01-01 07:00] LABS: Anion Gap 8.8 mmol/L (3-11); BUN 13 mg/dL (7-18); CO2 29.2 mmol/L (21.0-32.0); CREATININE 0.9 mg/dL (0.70-1.30); Calcium 8.7 mg/dL (8.5-10.1); Chloride 102 mmol/L (98-107); Estimated GFR 84.22 (mL/min/1.73m2); Glucose 145 mg/dL (74-106); Potassium 3.9 mmol/L (3.5-5.1); Sodium 140 mmol/L (136-145)
[2023-01-01 07:02] LABS: Calculated LDL 67 mg/dL (<100); Cholesterol 110 mg/dL (<200); HDL Cholesterol 26 mg/dL (40-60); Hemoglobin A1C 6.5 % (<5.7); Triglyceride 86 mg/dL (<150)
[2023-01-01 07:15] LABS: Procalcitonin < 0.1 ng/mL
--- NOTE | 2023-01-01 08:30 | DI.CT_ITS ---
Exam(s) CT BRAIN NECK CTA EXAM: CT BRAIN NECK CTA CLINICAL HISTORY: cva. TECHNIQUE: Imaging Protocol: Axial CT angiography was performed with multi-slice acquisition and mu lti-planar and/or 3D reconstructions. CONTRAST MATERIAL: Intravenous: Omnipaque 350 Contrast volume:structured data in ml COMPARISON: CT CT LUMBAR SPINE RECONS from 12/31/2022 FINDINGS: CTA Neck W: Aortic arch anatomy: The aortic arch anatomy is conventional and there is no significant stenosis at the origin of the great vessels off of the aortic arch. No intimal flap evident. Anterior circulation: Both common carotid arteries ascend with normal luminal diameters. At the right carotid bulb there some partially calcified plaque as well as in the proximal right ICA but amount of stenosis is estimated approximately only 10 percent. Right ICA above this level in the upper neck is patent as well as in the skull base. At the left carotid bulb there is minimal if any snuff plaque and also no significant stenosis in the proximal left ICA in the neck. Above this level in the neck the left ICA is somewhat tortuous but i ntact-without significant stenosis. Posterior circulation: Both vertebral arteries originate of the subclavian arteries. The left vertebral artery is dominant. It makes a 360 degree turn prior to entering the left foramen transverse area and where it ascends with normal luminal diameter of 4.8 mm and no evidence of intraluminal thrombus nor dissection and at the skull base is the sole contribute to the formation of the basilar artery. Some calcification is noted in the wall of this vessel at the skull base. The right vertebral artery is a thin 1 millimeter diameter vessel and is opacified up to the C2 level but not above this level. This may or may not be related to the right occipital lobe findings. CTA Brain W: Anterior circulation: Both internal carotid arteries are patent in the skull base-carotid canals as well as within the cave rnous sinuses. The supraclinoid aspects of the ICAs are patent. Both A1 segments are patent as are the anterior cer ebral arteries and there is no evidence of aneurysm at the level of the anterior communicating artery . Both middle cerebral arteries are patent with no evidence of significant stenosis nor intraluminal th rombus. There also no aneurysms of these vessels. Posterior circulation: The basilar artery is dolichoectatic. Distally gives off superior cerebellar arteries and above this level terminates as patent bilateral posterior cerebral arteries. Above this level the basilar artery terminates as patent bilateral posterior cerebral arteries. There is no evidence of aneurysm at the tip of the basilar artery nor elsewhere in the [id number] is. CT BRAIN: There is no evidence of intracranial hemorrhage, mass effect, or shift of midline structures. There are no extra-axial fluid collections. Ventricles are not enlarged or shifted. There are no ring enh ancing lesions in the brain and no abnormal meningeal enhancement. Right occipital lobe infarct again noted. IMPRESSION: 1. Patent carotid arteries in the neck. No hemodynamically significant stenosis. Only mild plaque. 2. Left vertebral artery is dominant. The right vertebral artery is a thin vessel which is only opa cified to the C2 level in the neck. This is either developmental or related to occlusion at this lev el. This may or may not be related to the right occipital lobe infarct. Intracranial findings as above. 3. RADIATION DOSE DELIVERED: 2,249.12mGy.cm Total DLP DATA REPOSITORY: All CT scans at this facility are submitted to the National Radiology Data Registry (NRDR) Dose Index Registry (DIR) with the [employer] (ACR). RADIATION OPTIMIZATION: All CT scans at this facility use at least one of these dose optimization te chniques: automated exposure control; mA and/or kV adjustment per patient size (includes targeted exa ms where dose is matched to clinical indication); or iterative reconstruction.
[2023-01-01] MEDS: Cholecalciferol (Vitamin D3) 1,000 UNIT TAB 1000 UNITS PO ×2 (08:31→21:40)
[2023-01-01] MEDS: Pantoprazole 20 MG TABCR PO (08:31)
[2023-01-01] MEDS: Gabapentin 300 MG CAP PO ×3 (08:31→21:40)
[2023-01-01] MEDS: Citalopram 20 MG TAB 40 MG PO (08:32)
[2023-01-01] MEDS: Acetylcysteine 600 MG CAP PO ×2 (08:32→21:41)
[2023-01-01] MEDS: Amoxicillin 500 MG CAP 1000 MG PO ×3 (08:32→21:41)
[2023-01-01] MEDS: Doxycycline Hyclate 100 MG CAP PO ×2 (08:32→21:41)
[2023-01-01] MEDS: Normal Saline Flush 10 ML SYR IVP ×2 (08:33→08:58)
[2023-01-01] MEDS: Metoprolol CR 25 MG TABCR PO (08:33)
[2023-01-01] MEDS: Budesonide/Formoterol 80/4.5 6.9 GM 60 PUFF INH IH ×2 (08:34→21:44)
[2023-01-01] MEDS: Umeclidinium 7 CAP INHALER IH (08:35)
[2023-01-01] MEDS: Acetaminophen 325 MG TAB PO (08:39)
[2023-01-01] MEDS: Aspirin E.C. 325 MG TABEC PO (08:40)
[2023-01-01] MEDS: Insulin Aspart 300 UNITS/3 ML PEN SC ×3 (08:41→21:40)
[2023-01-01] MEDS: Enoxaparin 40 MG/0.4 ML SYR SC (08:43)
[2023-01-01] MEDS: Omnipaque 350 MG/ML 100 ML BTL IJ (08:56)
[2023-01-01] MEDS: Normal Saline - Diluent 50 ML VIAL IJ (08:57)
--- NOTE | 2023-01-01 09:51 | PDOC.CMIN ---
Date of service: 01/01/23 Time of Service: 09:51 Care Management Initial Assmt Initial Assessment REASON FOR HOSPITALIZATION:: CVA PREVIOUS FUNCTIONAL STATUS/SOCIAL/FAMILY SUPPORTS:: Daniel discharged from [facility] to the [facility] on 12/29/22, for STR after having Spine Surgery at [facility]. The following day he was transported back to [facility], requiring admission for further medical work up. Daniel lives in [facility] with his , Letty. He has seven adult children, many of whom live locally and are supportive of him. Adolfo is retired but was a long time employee of [employer]. He is independent at baseline and drives. CURRENT FUNCTIONAL STATUS:: Adolfo was lying in bed when CM met with him. He is awake, pleasant and engages in conversation. He plans to return to the [facility] for STR, before he is discharged back home with his . ADVANCE DIRECTIVES:: On file; Letty is appointed as Health Care Agent. Has patient been provided with info about the portal/API?: Yes Did the patient sign up for the portal?: Yes (Prior to admission) CODE STATUS:: Full Code INSURANCE COVERAGE / FINANCIAL ISSUES:: [employer] Medicare Replacement Plan. CURRENT HOME/COMMUNITY SERVICES/EQUIPMENT:: SNF for STR at the [facility] He has a cane, walker, raised toilet seat, bed rails, and a commode at home. PRIMARY CARE PHYSICIAN:: Sangita Rose aprn POTENTIAL DISCHARGE NEEDS:: Return to SNF for STR PATIENT/FAMILY EDUCATION NEEDS:: Review of discharge instructions including medications, limitations, follow up plan of care; discuss Ask Me Three. ANTICIPATED BARRIERS TO DISCHARGE:: None identified at this time. TRANSPORTATION:: RCT w/c van PLAN:: Daniel requires close monitoring and further medical workup for CVA. Tick Panel is pending. Anticipate, he will return to the [facility] for STR, prior to returning home. He will transport via [employer] [facility] van and follow up with facility/community providers and his discharge plan of care as prescribed. CM will continue to support discharge planning needs. 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) Most recent MRI 08/25/2022 showing stenosis; Spine consult 11/01/2022 Degenerative joint disease (DJD) of lumbar spine (Acute) Effusion, right knee (Acute) Arthritis of right glenohumeral joint (Acute) Degenerative joint disease of right knee (Acute) Depo-Medrol injection: 05/07/2022 Bronchiectasis (Acute) Adrenal nodule (Acute) Rib pain on left side (Acute) Trochanteric bursitis of both hips (Chronic) Non-alcoholic fatty liver disease (Chronic 09/29/12) Type 2 diabetes mellitus (Chronic) Dx: 10/2018 Obesity (BMI 30-39.9) (Chronic) Advance directive in chart (Chronic 04/22/15) On-file with [facility] as of 04/22/2015 Sensorineural hearing loss, bilateral (Chronic 08/29/17) Osteoarthritis of knee (Chronic 08/13/13) Hypomagnesemia (Chronic 10/07/17) Hyperlipidemia, unspecified (Chronic 07/09/11) LDL GOAL 100 Gastroesophageal reflux disease (Chronic 07/09/11) Essential tremor (Chronic 07/27/11) Essential hypertension (Chronic 07/09/11) GOAL <130/80 Depression (Chronic 06/04/14) Long-term Celexa Rx Chronic obstructive pulmonary disease (COPD) (Chronic 09/29/12) MILD, 08/2012 PFTs FEV1 2.06 (70% pred and FVC), no response to bronchodilator; 11/17/15 bronchoscopy [facility]: NEG for Af[employer], fungus, & bacteria; cytology NEG for malignancy Cardiomyopathy (Chronic 04/10/12) BPH (benign prostatic hyperplasia) (Chronic 04/10/12) ASCVD (arteriosclerotic cardiovascular disease) (Chronic) S/p 5 vessel CABG 1995 Echo 09/27/2014 with normal LVEF Medical History Cataract 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 Essential tremor Heart disease Hypertension Sister Hypertensive disorder, systemic arterial Heart disease Brother , [place] at age 78. Heart disease Essential tremor Brother Heart disease Daughter Essential tremor Social History Smoking/Tobacco Use Status: Former Tobacco Use Tobacco: How many years used: 30 Smoking risk assessment performed?: Yes Alcohol Intake: never Drug use: Never Substance use type: does not use Adopted: No Caregiver/Support person: No Foster care: No Household members: spouse Housing: house Number of Children: 7 number of grandchildren: 25 Communication Needs: Hard of Hearing Education Level: high school Do you need help understanding health information?: Rarely current occupation: [employer] Pets and animals: Yes Pets and animals: dog(s) Sexually active: No Do you think of yourself as: straight/heterosexual Current gender identity: male What is your relationship status?: How often do you talk on the phone with friends or family?: three or more times per week How often do you get together with friends or relatives?: once per week Do you belong to any clubs or organized social groups?: yes Panel score (0-1 are the most socially isolated patients): 3 What type of physical activity do you participate in: walking and other Details: House work Duration: 15-30 minutes/day Frequency: 5-6 times per week Lindy/Muslim: Mandaeism Seatbelt use: always Drive intox or ride w/intox otr flatbed driver: No Water heater temp set <120 deg: Yes Working smoke detector in home: Yes Fire extinguisher in home: Yes Carbon monox detector in home: Yes Do you feel safe at home: Yes Do you feel safe in your relationship?: Yes Additional Social history: He has 5 step-children in addition to 3 biological. Readmission Within the Past 30 Days Yes or No: Yes Date of First Admission Date of 1st Admission: 12/27/22 Date of this Admission Date of Admission: 12/31/22 This admission was: Through ED Office Visit Since 1st Admission Have you seen your PCP in the office since discharge?: No Had an appointment Been Scheduled?: No Describe barriers for scheduling or getting an appointment: Daniel was discharged to SNF Speicalist Appointments Have you seen any other specialist since your 1st Admission?: No I. Interview patient and/or Family Difficulty reaching your doctor or getting an office appt?: No Have you had trouble purchasing/ or taking medication?: No Have you had trouble with getting meals at home?: No Did you feel ready for discharge when you left the last time: Yes Were services received that you thought were set up on disch: Yes Did you call your physician beore you came to the ED?: No Did your physician tell you to come in?: No If the patient had a VNA ordered Did the patient have a VNA order?: No Did you call the VNA before you came?: No Did the VNA tell you to come to the hospital?: No Do you know if the VNA called your physician?: No Ask the Care Team Members: What do you think caused the patient to be readmitted: Daniel was discharged to the [facility] on 12/29/22. He developed acute confusion and extreme weakness after discharge and requires further medical work up for CVA. [facility] Neurology is being consulted for recommendations. ED visits How many ED visits in the past 12 months: 2 Assessment for Readmission Summary of readmission circumstances, based upon interviews: Adolfo requires further medical work up of his stroke. He is also being treated with Doxy for a tick bite on 11/17/22 and has a tick panel pending. He is awake and able to engage in conversation. He appears oriented to time, place and reason for hospitalization. He shares with that he went to the [facility] 2 days ago and he's now back at the hospital because the doctors think he had a stroke. He is hoping to go back to the [facility] to get stronger, so he can go back home.
--- NOTE | 2023-01-01 11:00 | DI.VRAD_ITS ---
PROCEDURE INFORMATION: Exam: CT Head Without Contrast Exam date and time: 01/01/2023 9:30 AM Age: 82 years old Clinical indication: Condition or disease; Other: CVA; Additional info: 2 minute delay head images included per facility protocol TECHNIQUE: Imaging protocol: Computed tomography of the head without contrast. COMPARISON: CT HEAD WO 12/31/2022 4:18 PM FINDINGS: Brain: There is no acute intracranial hemorrhage, mass effect or midline shift. No large acute territorial infarct identified. There are patchy regions of hypodensity in the periventricular and subcortical white matter, likely on the basis of chronic microvascular ischemic disease. There is a region of hypodensity in the right occipital, likely from prior infarct. Cerebral ventricles: The ventricles and sulci are prominent in size, which is at least in part due to global cerebral volume loss. Paranasal sinuses: Visualized sinuses are unremarkable. No fluid levels. Mastoid air cells: Visualized mastoid air cells are well aerated. Bones/joints: Unremarkable. No acute fracture. Soft tissues: Unremarkable. IMPRESSION: 1. No acute intracranial hemorrhage, mass effect or midline shift. 2. Hypodensity again noted in the right occipital lobe, possibly due to subacute infarct. PROCEDURE INFORMATION: Exam: CTA Head With Contrast, Arteriography Exam date and time: 01/01/2023 9:30 AM Age: 82 years old Clinical indication: Condition or disease; Other: CVA; Additional info: 2 minute delay head images included per facility protocol TECHNIQUE: Imaging protocol: Computed tomographic angiography of the head with contrast. Exam focused on the arteries. 3D rendering (Not supervised by radiologist): MIP and/or 3D reconstructed images were created by the technologist. Radiation optimization: All CT scans at this facility use at least one of these dose optimization techniques: automated exposure control; mA and/or kV adjustment per patient size (includes targeted exams where dose is matched to clinical indication); or iterative reconstruction. Contrast material: OMNIPAQUE 350; Contrast volume: 85 ml; Contrast route: INTRAVENOUS (IV); COMPARISON: CT HEAD WO 12/31/2022 4:18 PM FINDINGS: ANTERIOR CIRCULATION: Right internal carotid artery: Intracranial segment is patent with no significant stenosis. No aneurysm. Right middle cerebral artery: No occlusion or significant stenosis in the right MCA. No aneurysm. Right anterior cerebral artery: No occlusion or significant stenosis in the right ARTIE. No aneurysm. Left internal carotid artery: The left internal carotid artery shows no evidence of occlusion or significant stenosis. No aneurysm. Left middle cerebral artery: No occlusion or significant stenosis in the left MCA. No aneurysm. Left anterior cerebral artery: No occlusion or significant stenosis in the left ARTIE. No aneurysm. POSTERIOR CIRCULATION: Right vertebral artery: Right vertebral artery is hypoplastic and not well visualized. Left vertebral artery: No occlusion or significant stenosis in the left vertebral artery. No aneurysm. Basilar artery: The basilar artery shows no evidence of occlusion or significant stenosis. No aneurysm. Right posterior cerebral artery: No occlusion or significant stenosis in the right MANUFACTURING SHIFT SUPERVISOR. No aneurysm. Left posterior cerebral artery: No occlusion or significant stenosis in the left MANUFACTURING SHIFT SUPERVISOR. No aneurysm. Brain: No definite mass, mass effect, or midline shift. Cerebral ventricles: No ventriculomegaly. Bones/joints: No acute fracture. Soft tissues: Unremarkable. IMPRESSION: 1. No large vessel occlusion. 2. Hypoplastic right vertebral artery, which is not well seen and could be occluded. Compare with prior imaging and correlate with clinical presentation. PROCEDURE INFORMATION: Exam: CTA Neck With Contrast Exam date and time: 01/01/2023 9:30 AM Age: 82 years old Clinical indication: Condition or disease; CVA; Additional info: 2 minute delay head images included per facility protocol TECHNIQUE: Imaging protocol: Computed tomographic angiography of the neck with contrast. 3D rendering (Not supervised by radiologist): MIP and/or 3D reconstructed images were created by the technologist. Radiation optimization: All CT scans at this facility use at least one of these dose optimization techniques: automated exposure control; mA and/or kV adjustment per patient size (includes targeted exams where dose is matched to clinical indication); or iterative reconstruction. Contrast material: OMNIPAQUE 350; Contrast volume: 85 ml; Contrast route: INTRAVENOUS (IV); COMPARISON: CT CHEST PE CTA 12/25/2022 4:58 AM FINDINGS: Right common carotid artery: No stenosis. No dissection or occlusion. Right internal carotid artery: No stenosis of the extracranial segment. No dissection or occlusion. Right external carotid artery: No occlusion or stenosis of the origin. Left common carotid artery: No stenosis. No dissection or occlusion. Left internal carotid artery: No stenosis of the extracranial segment. No dissection or occlusion. Left external carotid artery: No occlusion or stenosis of the origin. Right vertebral artery: Right vertebral artery is hypoplastic. No occlusion in the neck. Left vertebral artery: No significant stenosis in the left vertebral artery. No dissection or occlusion. Soft tissues: Normal. No significant soft tissue swelling. Bones/joints: No acute fracture. Lungs: Linear opacities partially visualized in the upper lobes, possibly atelectasis. IMPRESSION: 1. No evidence of occlusion or dissection in the neck. 2. No significant carotid arterial stenosis. REFERENCES: NASCET CRITERIA. The degree of stenosis in the cervical segment of the internal carotid artery is based on NASCET criteria. Normal is no stenosis. Mild is less than 50% stenosis. Moderate is 50-69% stenosis. Severe is 70% to 99% stenosis. Total occlusion is no detectable patent lumen. Dictated and Authenticated by: Tesha Parks MD. Ordering:[facility] Michel Montalvo MD
--- NOTE | 2023-01-01 11:34 | PT.INIE ---
Date of service: 01/01/23 Time of Service: 10:44 PT Notes Visit Reasons: Cerebrovascular accident Physical Therapy Inpatient Discharge Summary Date: 01/01/2023 Referring Doctor: Selvin Pearson MD PT Orders: PT CONSULT: Fall Safety Assessment Precautions: Remains on back precautions--No bending, lifting, or twisting. Patient Profile/Admitting Diagnosis:?Fever.? ? Adolfo is an 82-year-old male recently discharged from [facility] to [facility] with PT services from 12/25/2022 through 12/30/2022 S/P L3-L5 laminectomy with medial facetectomy and with foraminotomies with pedicale screw placement on POD 10 at [facility] [place]. He was discharged to the [facility] on 12/30/2022 for continued rehabilitation but needed rehospitalization for management of occipital cerebral infarction, chronic low back pain, fever, positive blood culture, type II DM, essential hypertension, urinary retention, and COPD. 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) Most recent MRI 08/25/2022 showing stenosis; Spine consult 3Degenerative joint disease (DJD) of lumbar spine (Acute) Effusion, right knee (Acute) Arthritis of right glenohumeral joint (Acute) Degenerative joint disease of right knee (Acute) Depo-Medrol injection: 2Bronchiectasis (Acute) Adrenal nodule (Acute) Rib pain on left side (Acute) Trochanteric bursitis of both hips (Chronic) Non-alcoholic fatty liver disease (Chronic 09/29/12) Type 2 diabetes mellitus (Chronic) Dx: 10/2018Obesity (BMI 30-39.9) (Chronic) Advance directive in chart (Chronic 04/22/15) On-file with [facility] as of 04/22/2015 Sensorineural hearing loss, bilateral (Chronic 08/29/17) Osteoarthritis of knee (Chronic 08/13/13) Hypomagnesemia (Chronic 10/07/17) Hyperlipidemia, unspecified (Chronic 07/09/11) LDL GOAL 100 Gastroesophageal reflux disease (Chronic 07/09/11) Essential tremor (Chronic 07/27/11) Essential hypertension (Chronic 07/09/11) GOAL <130/80 Depression (Chronic 06/04/14) Long-term Celexa Rx Chronic obstructive pulmonary disease (COPD) (Chronic 09/29/12) MILD, 08/2012 PFTs FEV1 2.06 (70% pred and FVC), no response to bronchodilator; 11/17/15 bronchoscopy [facility]: NEG for [employer], fungus, & bacteria; cytology NEG for malignancy Cardiomyopathy (Chronic 04/10/12) BPH (benign prostatic hyperplasia) (Chronic 04/10/12) ASCVD (arteriosclerotic cardiovascular disease) (Chronic) S/p 5 vessel CABG 1995 Echo 09/27/2014 with normal LVEF Medical History? 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 Arthroplasty of knee Extraction of cataract Status post coronary artery bypass graft (~1995) Social History/Home Situation: Patient lives in multilevel home with .? Has supportive children that live nearby. Equipment Owned/DME: Front wheel walker Subjective: Daughter, and patient agreed about some mild confusion limting ability of patient to follow instructions. Agreeable to getting out of bed with PT. DAughter and states that patient got seen by PT the following day of his arrival there. Patient states that he has had some skin issues in his sacral/coccygeal areas, reports continued soreness when he was cleaned after tthis morning's bowel movement. Daughter states that to her understanding patient may have a suspicious mass in his brain which may require transfer to [facility] [place] depennding on what the hospitalists decides. Adds that he hurts in B his hips with the R more sore than the L, adds that this ahs been going on for quite a while. Denies headache, chest pain, and lightheadednesss throughout session Objective:? General Observation: Resting in bed. Daughter and present in room during session. IV access in right UE. Fay catheter in place. Open areas in sacral/coccygeal and R gluteal areas seen. Nurse Rossana and Dianne aware. Telemetry monitoring in place. [place] intentional tremors observed in the L UE that resolved with rest. Mental Status: Alert, mildy confused but is able to follow single step-commands. Answers delayed. Pain: Moderate pain in the R hip with at rest and with movement; denies headache, chest pain, and lightheadednesss throughout session Vital Signs: [place] monitored via tele. ROM: Right Upper Extremity: Shoulder Flexion WFL. Shoulder abduction WFL. Elbow flexion WFL. Wrist flexion WFL. Functional opening and closing of hand WFL. Left Upper Extremity: Shoulder Flexion WFL. Shoulder abduction WFL. Elbow flexion WFL. Wrist flexion WFL. Functional opening and closing of hand WFL. Right Lower Extremity: Hip flexion WFL. Hip abduction WFL. Knee flexion WFL. Ankle dorsiflexion WFL. Ankle plantarflexion WFL. Left Lower Extremity: Hip flexion WFL. Hip abduction WFL. Knee flexion WFL. Ankle dorsiflexion WFL. Ankle plantarflexion WFL. Strength: Right Upper Extremity: Shoulder flexors 4-/5. Shoulder abductors 4-/5. Elbow flexors 4-/5. Elbow extensors 4-/5. [employer] strong. Left Upper Extremity: Shoulder flexors 4-/5. Shoulder abductors 4-/5. Elbow flexors 4-/5. Elbow extensors 4-/5. [employer] strong. Right Lower Extremity: Hip flexors 4-/5. Hip abductors 4-/5. Knee flexors 4-/5. Knee extensors 4-/5. Ankle dorsiflexors 4-/5. Ankle plantarflexors 4-/5. Left Lower Extremity: Hip flexors 4-/5. Hip abductors 4-/5. Knee flexors 4-/5. Knee extensors 4-/5. Ankle dorsiflexors 4-/5. Ankle plantarflexors 4-/5. Sensation: Inatct as to pain and light pressure in B LE Bed mobility/Transfers: Rolling minimal assist Supine to sit minimal assist with HOB at 30 degrees Sit to stand minimal assist, cues provided for hand placement, FWW Stand to sit contact gurad assist with FWW Bed to commode minimal assist with FWW Commode to bedside chair minimal assist with FWW ? GAIT? Assistive Device: Front wheeled walker? Weight bearing: FWB Assist: Minimal asssit ? Distance:? 5 feet + 10 feet ? Deviation: Unequal step length due to preexisting R hip pain, mildly kyphotic posture but is able to correct on command, reports fatigue and required moderate verbal cueing for walker management during turning ? Balance:? Static Sitting: Good Dynamic Sitting:? Good Static Standing: Fair Dynamic Standing:?Fair Special Tests: Mobility Limitations Standardized Measure [facility] AM-PAC 6 clicks Basic Mobility Inpatient Short Form: Raw Score: 18? CMS Score: 47%? ? Informed Consent/Education: Patient was instructed in purpose of PT consult and plan of care. Agreeable to proceed with established PT POC to achieve personal goals.Patient instructed in purpose of PT consult and plan of care. NEURO: 4-stage balance Test: Unable to maintain all 4 positions for 10 seconds each indincating high fall risk. Romberg Test: Deferred due to safety reasons Rapid alternating movement: Intact Pronator Drift: Negative in B UE Assessment:?? Strength deficit symmetric in B UE. R hip weaker than L due to pre-existing pain. Appeared more confused compared to previous episode of care. Adolfo is an 82-year-old male recently discharged from [facility] to SNF with PT services from 12/25/2022 through 12/30/2022 S/P L3-L5 laminectomy with medial facetectomy and with foraminotomies with pedicale screw placement on POD 10 at [facility] [place] He was discharged to the [facility] on 12/30/2022 for continued rehabilitation but needed rehospitalization for management of occipital cerebral infarction, chronic low back pain, fever, positive blood culture, type II DM, essential hypertension, urinary retention, and COPD. ? Patient presents with clinical signs and symptoms consistent with current/admitting diagnoses that have resulted to mobility limitations, gait instability, generalized weakness, and overall ADL decline as demonstrated by the following impairment level findings: 1.? Decreased strength to B LE major muscle groups 2.? Impaired standing balance 3.? Impaired activity tolerance Impairments are contributing to the following functional limitations: 1.? Difficulty with ambulation without assistive device 2.? Increased completion time for mobility ADL performance 3.? Increased risk for falls 4.? Difficulty with managing steps alone safely Patient is assessed as a 26635 moderate complexity based on the following: History: 82-year-old male with past medical history as indicated above Examination: Demonstrable impairment in strength, balance, and mobility level with underlying impairments and functional limitations as exhibited above as well as deficit score of 47% utilizing the [facility] Mobility Inpatient Short Form Presentation: Evolving Decision Makin moderate complexity Plan of Care/Treatment Plan: 1-2x/day, 7 days/week x 1 week. Plan of care has been reviewed with the [employer] providing the service under Physical Therapy direction. Initiate Physical Therapy intervention for pain management as needed, strengthening, bed mobility, transfers, gait, stairs, balance training, and use of assistive device. Goals: Goals X1 week 1. Supine-Sit independent 2. Sit-Supine independent 3. Sit-Stand independent 4. Stand-Sit independent 5. Bed-Chair independent 6. Chair-Bed independent 7. Independent gait on level surface with use of least restrictive device for at least 300 feet without report of pain nor dyspnea maintaining nonweightbearing status 8. Independent stair negotiation while holding onto bilateral rails for at least 10 steps without report of pain nor dyspnea maintaining nonweightbearing status 9. Independent with home exercise program 10. Good static and dynamic standing balance/tolerance DISCHARGE RECOMMENDATIONS: [] ? Home with no services [] [] ? Home with services [specify] [] ? Home with outpatient PT [] [X] ? SNF for continued rehabilitation [] ? [facility] [] [] ? SNF versus LTC based on ability to participate and progress [] TREATMENT CODE/TIME:? 78536 x 20 minutes, 62057 x 26 minutes begining at 10:44 AM. Thank you for the opportunity to participate in the care of this patient. Nona Sanders PT, DPT, CLT [facility] [place], [place]
--- NOTE | 2023-01-01 17:19 | PGE_ITS ---
Date of Service Date of service: 01/01/23 Time of Service: 17:19 Assessment and Plan Assessment and plan (1) Occipital cerebral infarction: Status: Acute Assessment and plan: subacute right occipital CVA, per CT, unclear if this is thrombotic or embolic. Discussed with [facility] neurology. Adding plavix, decreasing dose of asa, continue statin. Obtain echo, MRI brain. Await neurology consult on Tuesday. Monitor neurochecks. PT and speech consulted. (2) Chronic low back pain with bilateral sciatica: Status: Chronic Assessment and plan: Agree with holding celebrex. Continue tylenol, neurontin, prn hydrocodone. (3) S/P laminectomy: Status: Acute Assessment and plan: [facility] spine again feels that there is no evidence of infection in the spine. The patient remains on empiric amoxicillin for the 1 positive blood culture on last admission with VRE. Should the patient develop any neurological symptoms in LEs, would obtain an MRI of the spine. (4) Fever: Status: Acute Assessment and plan: Continue amoxicillin for the VRE in 1 blood culture on last admission. This may already be covering Lyme disease, but I agree with continuing doxycycline for now as, if there is a tick borne illness, it could be anaplasmosis as well. CRP has markedly improved on this admission. (5) Positive blood culture: Status: Acute Assessment and plan: as above (6) Type 2 diabetes mellitus: Status: Chronic Assessment and plan: Continue SSI Qualifiers: Diabetes mellitus senior care insulin use: without senior care use Diabetes mellitus complication status: without complication Qualified Code(s): E11.9 - Type 2 diabetes mellitus without complications (7) Essential hypertension: Status: Chronic Assessment and plan: Hold BB (permissive hypertension). (8) Urinary retention: Status: Acute Assessment and plan: On last admission. continue rodriguez (9) Chronic obstructive pulmonary disease (COPD): Status: Chronic Assessment and plan: continue home inhalers Qualifiers: COPD type: unspecified COPD Qualified Code(s): J44.9 - Chronic obstructive pulmonary disease, unspecified Subjective Subjective Interval history since last seen: Mr Villavicencio states he has difficulty focusing on his train of thought, is tired/sleepy and keeps falling asleep, and describes double vision which gets better when one of his eyes is closed. He denies dizziness, headache, numbness, tingling, CP, SOB, n, weakness. He has been able to walk today. His case was discussed with [facility] neurology, who recommend -starting plavix in addition to baby asa (no need to load) -obtaining an MRI -obtaining an echo I discussed the case with the patient's daughter in law Colette Holloway ([phone]) and updated her on the plan. Exam Narrative Exam Narrative: General: Pleasant elderly male who looks younger than his stated age, A&Ox3, does fall asleep in the middle of our conversation on a couple of occasions Neuro: somnolent, easily arousable, A&Ox3, EOMI, CN II-XII intact, Finger to nose impaired B, but worse so on the L, no pronator drift, 5/5 strength throughout, sensory intact HEENT: EOMI, MMM Heart: RRR, no m/r/g Lungs: CTAB Abdomen: soft, nontender, nondistended Extremities: no edema BLEs, 5/5 strength throughout Objective Last Vital Signs Temp 36.5 C 01/01/23 15:13 Pulse 72 01/01/23 16:19 Resp 18 01/01/23 15:13 BP 129/86 01/01/23 15:13 Pulse Ox 96 01/01/23 15:13 Laboratory Results - last 24 hr 12/31/22 01/01/23 01/01/23 16:45 06:30 06:30 WBC 12.53 H RBC 3.72 L Hgb 11.6 L Hct 34.6 L MCV 93 MCH 31.2 MCHC 33.5 RDW 12.7 Plt Count 291 MPV 9.7 Immature Gran % 1.9 Neutrophils % 76.9 Lymphocytes % 8.4 Monocytes % 8.0 Eosinophils % 4.2 Basophils % 0.6 Nucleated RBC % 0.0 Absolute Neutrophils 9.64 H Absolute Lymphocytes 1.05 L Absolute Monocytes 1.00 H Absolute Eosinophils 0.53 Absolute Basophils 0.08 Sodium 140 Potassium 3.9 Chloride 102 Carbon Dioxide 29.2 Anion Gap 8.8 BUN 13 Creatinine 0.9 Est GFR (CKD-EPI 2020) 84.22 Glucose 145 H Hemoglobin A1c Calcium 8.7 Triglycerides Total Cholesterol LDL Cholesterol, Calc HDL Cholesterol Procalcitonin SARS-CoV-2 (PCR) Negative 01/01/23 01/01/23 01/01/23 06:30 06:30 06:30 WBC RBC Hgb Hct MCV MCH MCHC RDW Plt Count MPV Immature Gran % Neutrophils % Lymphocytes % Monocytes % Eosinophils % Basophils % Nucleated RBC % Absolute Neutrophils Absolute Lymphocytes Absolute Monocytes Absolute Eosinophils Absolute Basophils Sodium Potassium Chloride Carbon Dioxide Anion Gap BUN Creatinine Est GFR (CKD-EPI 2020) Glucose Hemoglobin A1c 6.5 H Calcium Triglycerides 86 Total Cholesterol 110 LDL Cholesterol, Calc 67 HDL Cholesterol 26 L Procalcitonin < 0.1 SARS-CoV-2 (PCR) Time Spent with Patient Time Spent with Patient: 35-49 minutes Time was spent: preparing to see the patient(eg.review tests), obtaining and/or reviewing separately otained hiistory, ordering medications,tests, procedures, referring, communicating with other health director of managed care, indepentently interpreting results, counseling the patient and care coordination
[2023-01-01] MEDS: Clopidogrel 75 MG TAB PO (17:45)
[2023-01-01] MEDS: Clotrimazole 1% 15 GM TUBE TP (21:40)
[2023-01-01] MEDS: Atorvastatin 40 MG TAB 80 MG PO (21:41)
[2023-01-02] VITALS (7 sets, daily range): BP systolic 126–158; BP diastolic 60–84; PULSE 62–91; RESP 18–20; TEMP 36.5–37.2; O2SAT 93–98
--- NOTE | 2023-01-02 | DI.RAD_ITS ---
Exam(s) XR PORTABLE CHEST AP EXAM: XR PORTABLE CHEST AP CLINICAL HISTORY: productive cough. TECHNIQUE: 2D digital imaging was performed. COMPARISON: CR XR CHEST 2V PA LATERAL from 12/10/2022 FINDINGS: Single AP portable view. Sternotomy wires again noted. Heart size is upper normal. The mediastinum is not widened. Lungs are clear. No infiltrates nor obvious pleural effusions. Advanced degenerative changes in the right shoulder noted. IMPRESSION: No acute pulmonary findings on this single AP portable view of the chest.Sternotomy wires again noted . No pulmonary edema. Advanced degenerative changes in the right glenohumeral joint DATA REPOSITORY: RADIATION DOSE DELIVERED:
[2023-01-02 06:31] LABS: Abs Immature Grans 0.19 10^3/uL (0.0-0.06); Absolute Basophil Count 0.06 10^3/uL (0.0-0.2); Absolute Lymphocyte Count 1.18 10^3/uL (1.2-3.4); Absolute Monocyte Count 0.91 10^3/uL (0.1-0.8); Absolute Neutrophil Count 8.37 10^3/uL (1.2-6.7); Basophils % 0.5; Eosinophils % 3.9; HCT 35.9 % (40.0-50.0); HGB 11.9 g/dL (13.5-17.5); Immature Grans % 1.7; Lymphocytes % 10.6; MCH 30.5 pg (27.0-33.0); MCHC 33.1 % (32.0-36.0); MCV 92 fL (80-95); MPV 9.7 fL (8.0-11.0); Monocytes % 8.2; Neutrophils % 75.1; Platelet Count 336 10^3/uL (130-400); RDW 12.9 % (11.8-14.1); RDW-SD 42.8 fL; WBC 11.15 10^3/uL (4.4-10.8)
[2023-01-02 06:34] LABS: Absolute Eosinophil Count 0.43 10^3/uL (0.0-0.7)
[2023-01-02 06:47] LABS: Anion Gap 9.1 mmol/L (3-11); BUN 13 mg/dL (7-18); C-Reactive Protein 7.76 mg/dL (0.0-0.3); CO2 27.9 mmol/L (21.0-32.0); Calcium 8.8 mg/dL (8.5-10.1); Chloride 103 mmol/L (98-107); Estimated GFR 74.21 (mL/min/1.73m2); Glucose 152 mg/dL (74-106); Magnesium 1.9 mg/dL (1.8-2.4); Potassium 3.9 mmol/L (3.5-5.1); Sodium 140 mmol/L (136-145)
[2023-01-02] MEDS: Enoxaparin 40 MG/0.4 ML SYR SC (07:53)
[2023-01-02] MEDS: Doxycycline Hyclate 100 MG CAP PO ×2 (07:54→21:37)
[2023-01-02] MEDS: Acetylcysteine 600 MG CAP PO ×2 (07:54→21:37)
[2023-01-02] MEDS: Polyethylene Glycol 3350 17 GM PACKET PO (07:54)
[2023-01-02] MEDS: Clopidogrel 75 MG TAB PO (07:54)
[2023-01-02] MEDS: Magnesium Oxide 400 MG TAB PO (07:55)
[2023-01-02] MEDS: Acetaminophen 325 MG TAB PO ×3 (07:55→21:35)
[2023-01-02] MEDS: Cholecalciferol (Vitamin D3) 1,000 UNIT TAB 1000 UNITS PO ×2 (07:56→21:37)
[2023-01-02] MEDS: Gabapentin 300 MG CAP PO ×3 (07:56→21:37)
[2023-01-02] MEDS: Pantoprazole 20 MG TABCR PO (07:56)
[2023-01-02] MEDS: Citalopram 20 MG TAB 40 MG PO (07:56)
[2023-01-02] MEDS: Umeclidinium 7 CAP INHALER IH (08:01)
[2023-01-02] MEDS: Budesonide/Formoterol 80/4.5 6.9 GM 60 PUFF INH IH ×2 (08:01→21:37)
[2023-01-02] MEDS: Amoxicillin 500 MG CAP 1000 MG PO ×3 (09:31→21:37)
[2023-01-02] MEDS: Aspirin E.C. 81 MG TABEC PO (09:32)
[2023-01-02] MEDS: Clotrimazole 1% 15 GM TUBE TP ×2 (09:33→21:38)
[2023-01-02] MEDS: Insulin Aspart 300 UNITS/3 ML PEN SC ×3 (09:35→16:26)
--- NOTE | 2023-01-02 17:00 | PGE_ITS ---
Date of Service Date of service: 01/02/23 Time of Service: 17:01 Assessment and Plan Assessment and plan (1) Occipital cerebral infarction: Status: Acute Assessment and plan: subacute right occipital CVA, per CT, unclear if this is thrombotic or embolic. Continue aspirin, plavix, statin. Await echo, MRI brain. Await neurology consult tomorrow. Monitor neurochecks. PT and speech consulted. (2) Chronic low back pain with bilateral sciatica: Status: Chronic Assessment and plan: Agree with holding celebrex. Continue tylenol, neurontin, prn hydrocodone. (3) S/P laminectomy: Status: Acute Assessment and plan: [facility] [place] again feels that there is no evidence of infection in the spine. I am noting the positive blood culture (1 bottle/4) on admission. If not c/w contaminant, this would be a strong indication for obtaining an MRI and transferring. I am reassured by improvement in CRP. The patient remains on empiric amoxicillin for the 1 positive blood culture on last admission with VRE. (4) Fever: Status: Resolved Assessment and plan: On last admission. Afebrile on this admission. Continue amoxicillin for the VRE in 1 blood culture bottle/8 on last admission. Does have 1 positive blood culture on this admission as well. Await repeat blood culture results from this admission. Continue doxycycline. CRP has markedly improved on this admission. 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 (8) Urinary retention: Status: Acute Assessment and plan: On last admission. continue rodriguez (9) Chronic obstructive pulmonary disease (COPD): Status: Chronic Assessment and plan: continue home inhalers Qualifiers: COPD type: unspecified COPD Qualified Code(s): J44.9 - Chronic obstructive pulmonary disease, unspecified (10) DVT prophylaxis: Status: Acute Assessment and plan: Sc enoxaparin (11) Discharge planning issues: Status: Acute Assessment and plan: DNR/DNI Continues to require hospitalization Subjective Subjective Interval history since last seen: Mr Villavicencio states he is feeling better today. He thinks his speech is better - back to baseline. Denies dizziness, headache, double vision is better, denies CP, SOB, n/v. He was able to walk with PT. He does note that he is more tremulous than his baseline, states that he normally takes primidone 150 mg, not 50 mg as he was ordered here. He also endorses cough productive of yellow sputum. Exam Narrative Exam Narrative: General: Pleasant elderly male who is A&Ox3, sitting comfortably in a chair HEENT: EOMI, MMM Heart: RRR, no m/r/g Lungs: CTAB Abdomen: soft, nontender, nondistended Extremities: no edema BLEs Objective Last Vital Signs Temp 36.6 C 01/02/23 14:50 Pulse 88 01/02/23 14:50 Resp 18 01/02/23 14:50 BP 127/60 01/02/23 14:50 Pulse Ox 94 01/02/23 14:50 Laboratory Results - last 24 hr 01/02/23 01/02/23 06:25 06:25 WBC 11.15 H RBC 3.90 L Hgb 11.9 L Hct 35.9 L MCV 92 MCH 30.5 MCHC 33.1 RDW 12.9 Plt Count 336 MPV 9.7 Immature Gran % 1.7 Neutrophils % 75.1 Lymphocytes % 10.6 Monocytes % 8.2 Eosinophils % 3.9 Basophils % 0.5 Nucleated RBC % 0.0 Absolute Neutrophils 8.37 H Absolute Lymphocytes 1.18 L Absolute Monocytes 0.91 H Absolute Eosinophils 0.43 Absolute Basophils 0.06 Sodium 140 Potassium 3.9 Chloride 103 Carbon Dioxide 27.9 Anion Gap 9.1 BUN 13 Creatinine 1.0 Est GFR (CKD-EPI 2020) 74.21 Glucose 152 H Calcium 8.8 Magnesium 1.9 C-Reactive Protein 7.76 H Time Spent with Patient Time Spent with Patient: 35-49 minutes Time was spent: preparing to see the patient(eg.review tests), obtaining and/or reviewing separately otained hiistory, ordering medications,tests, procedures, referring, communicating with other health resident care assistant, indepentently interpreting results, counseling the patient and care coordination
--- NOTE | 2023-01-02 18:31 | DI.VRAD_ITS ---
PROCEDURE INFORMATION: Exam: XR Chest Exam date and time: 01/02/2023 5:24 PM Age: 82 years old Clinical indication: Patient HX: Productive cough TECHNIQUE: Imaging protocol: Radiologic exam of the chest. Views: 1 view. COMPARISON: CT CHEST/ABD/PEL W 12/31/2022 4:22 PM FINDINGS: Lungs: Unremarkable. No consolidation. Pleural spaces: Unremarkable. No pleural effusion. No pneumothorax. Heart/Mediastinum: Unremarkable. No cardiomegaly. Bones/joints: Status post median sternotomy. Degenerative changes noted right shoulder. IMPRESSION: No evidence for consolidation. Dictated and Authenticated by: Gloria Stallworth MD. Ordering:EMILY Escobar MD
[2023-01-02] MEDS: Primidone 50 MG TAB 150 MG PO (21:36)
[2023-01-02] MEDS: Atorvastatin 40 MG TAB 80 MG PO (21:37)
[2023-01-02] MEDS: guaiFENesin 600 MG TABCR PO (21:37)
--- NOTE | 2023-01-02 22:23 | PT.INTREAT ---
Date of service: 01/02/23 Time of Service: 10:36 PT Notes Visit Reasons: Cerebrovascular accident Inpatient Physical Therapy Treatment Note [facility] Date: 01/02/23 PRECAUTIONS: Fall, standard, activity as tolerated SUBJECTIVE: patient sitting up in chair, agreeable to therapy. OBJECTIVE: PAIN: none reported BED MOBILITY/TRANSFERS Rolling L/R: independent Supine-sit: independent Sit-supine: independent Sit-stand: independent Stand-sit: independent Bed-Chair: independent Chair-bed: independent GAIT Assistive Device: FWW Weight bearing: full Assist: standby Distance: 500 feet Deviation: reduced step height, reduced stride length, wide base of support VITALS: closely monitored via telemetry ASSESSMENT: patient tolerates therapy well PLAN: continue strengthening per plan of care TREATMENT CODE/TIME: 19933 Gait 24 minutes beginning at 10:36
[2023-01-03] VITALS (9 sets, daily range): BP systolic 125–163; BP diastolic 74–88; PULSE 84–99; RESP 17–20; TEMP 36–37.6; O2SAT 92–96
[2023-01-03 06:33] LABS: Absolute Basophil Count 0.05 10^3/uL (0.0-0.2); Absolute Lymphocyte Count 1.24 10^3/uL (1.2-3.4); Absolute Monocyte Count 1.01 10^3/uL (0.1-0.8); Absolute Neutrophil Count 8.62 10^3/uL (1.2-6.7); Basophils % 0.4; Eosinophils % 3.5; HCT 35.8 % (40.0-50.0); HGB 11.9 g/dL (13.5-17.5); Immature Grans % 1.7; Lymphocytes % 10.8; MCH 30.3 pg (27.0-33.0); MCHC 33.2 % (32.0-36.0); MCV 91 fL (80-95); MPV 9.4 fL (8.0-11.0); Monocytes % 8.8; Neutrophils % 74.8; Platelet Count 388 10^3/uL (130-400); RBC 3.93 10^6/uL (4.36-5.78); RDW 12.9 % (11.8-14.1); RDW-SD 42.8 fL; WBC 11.52 10^3/uL (4.4-10.8)
[2023-01-03 06:45] LABS: Anion Gap 10.4 mmol/L (3-11); BUN 14 mg/dL (7-18); CO2 26.6 mmol/L (21.0-32.0); Calcium 8.7 mg/dL (8.5-10.1); Chloride 103 mmol/L (98-107); Estimated GFR 74.21 (mL/min/1.73m2); Glucose 149 mg/dL (74-106); Magnesium 1.8 mg/dL (1.8-2.4); Sodium 140 mmol/L (136-145)
[2023-01-03] MEDS: Budesonide/Formoterol 80/4.5 6.9 GM 60 PUFF INH IH ×2 (07:50→21:34)
[2023-01-03] MEDS: Umeclidinium 7 CAP INHALER IH (07:50)
--- NOTE | 2023-01-03 08:00 | DI.US_ITS ---
APPROVED REPORT EXAM: Comprehensive 2D, Doppler, and color-flow Echocardiogram Patient Location: In-Patient Room/Bed: 229 Pasting Inspector: Danielle Zuniga RDCS (AE) Indications: CVA, HTN, COPD, CAD, CABG Echo Enhancing Agent Indication: Rule out Shunt Agent(s) / Amount(s) Used: Agitated Saline 40.0 cc Comments: Contrast study was performed with 4IV injections of 10ccs of agitated normal saline, at 3 r est and 1 Patient was unable to cooperate with maneuvers.with cough. Other Information Study Quality: Adequate Conclusion Normal left ventricular wall thickness and chamber size. Ejection fraction is 60%. Wall motion is n ormal Normal right ventricular size and systolic function Both atria are normal in size Aortic valve is sclerotic and trileaflet without stenosis or regurgitation Mild mitral annular calcification Mildly dilated ascending aorta 3.63 cm Wall motion Left Ventricle The left ventricle is normal size. The overall left ventricular systolic function appears normal. The re is normal left ventricular wall thickness. Regional wall motion is grossly normal. LVEF is 60%. Right Ventricle The right ventricle is normal size. Right ventricular systolic function is grossly normal. Atria The left atrium size is normal. The right atrium size is normal. Aortic Valve The Aortic valve is sclerotic. Aortic valve is trileaflet. There is no aortic valvular stenosis. No a ortic regurgitation is present. Mitral Valve Mild mitral annular calcification. No evidence of mitral valve stenosis. Trace mitral regurgitation. Tricuspid Valve The tricuspid valve is normal in structure. There is no tricuspid valve stenosis. Trace tricuspid reg urgitation. Pulmonic Valve The pulmonary valve is normal in structure. There is no pulmonic valvular stenosis. Trace to mild pul saleem regurgitation. Great Vessels The aortic root is normal in size. The ascending aorta is mildly dilated. Aortic arch is not well vis ualized. The IVC was not visualized. Pericardium Technically limited sub costal imaging. 2D Dimensions IVSD d PLAX 1.04 cm M: 0.6-1.2 LV Vol A2C d MOD 88.4 mL LVPW d PLAX 1.03 cm M: 0.6 - 1.2 LV Vol A4C d MOD 149.7 mL LVID d PLAX 5.16 cm M: 4.2 - 5.8 LA vol/ BSA A2C s A-L 21.0 mL/m2 LVDs 3.75 cm M: 2.5 - 4.0 LA vol/ BSA A4C s A-L 21.3 mL/m2 Ao Root d 3.07 cm M: 3.1 - 3.7 LA Vol/ BSA Biplane s A-L 21.8 mL/m2 RA Area A4C 15.93 cm2 LA Area A4C s MOD 17.51 cm2 RA Vol/ BSA A4C s A-L 17.1 mL/m2 LA Area A2C s MOD 17.89 cm2 Ao Asc Diam d 3.64 cm M: 2.6 - 3.4 LV EF A4C MOD 58.3 % LV EF Teichholz 51.6 % LV EF A2C MOD 59.8 % LVEF (Patel's) 59.14 % M: 52 - 72 LV EF Biplane MOD 59.1 % LV Volume 87.09 mL M: 62 - 150 SV 70.58 mL LV Volume Index 39.94 mL/m2 M: 34 - 74 SV Index 32.42 mL/m2 LV Vol Biplane MOD 119.3 mL FS 26.55 % LV Diastology MV E' medial 0.065 (>0.07 m/s) E/A Ratio 0.6 LV E/e MED 10.15 (<14) MV E Vmax 0.66 (0.4-1.3 m/s) MV E' lateral 0.139 (>0.1 m/s) MV A Vmax 1.20 (0.4-1.3 m/s) LV E/e LAT 4.70 (<14) MV E/A Ratio 0.53 MV E/E' medial 10.19 MV E/E' lateral 4.74 Aortic Valve LVOT Area 3.10 cm2 AoV Area Vmax 2.76 cm2 LVOT Vmax 1.40 m/s AoV Area/ BSA (Vmax) 1.27 cm2/m2 LVOT Mean Ellis. 0.91 m/s EMMA Mean Ellis. 2.49 cm2 LVOT Peak Grad 7.8 mmHg EMMA Mean Ellis. Index 1.14 cm2/m2 LVOT Mean Grad 3.8 mmHg LVOT VTI 0.230 m LVOT Diam s 1.95 cm AoV Vmax 1.57 m/s Velocity Ratio 0.89 AoV Mean Ellis. 1.13 m/s AoV Peak Grad 9.9 mmHg LVOT SV 71.31 mL AoV Mean Grad 5.6 mmHg AoV VTI 0.278 m AoV Area VTI 2.57 cm2 AoV Area/ BSA (VTI) 1.18 cm/m2 Mitral Valve MV DT 137 (160-240 msec) MV PHT 40 msec MV Area PHT 5.55 cm2 MV VTI 0.285 m MV Area VTI 2.51 (4.0-6.0 cm2) Pulmonary Valve PV Vmax 1.39 (0.5-1.5 m/s) RVOT Peak Gr. 2.36 mmHg PV Peak Grad 7.8 mmHg RVOT Mean Gr. 1.20 mmHg PV Mean Grad 3.7 mmHg RVOT VTI 0.151 m PV VTI 0.214 m RVOT Vmax 0.77 m/s Tricuspid Valve TR Peak Grad 29.9 mmHg TR Vmax 2.74 m/s
--- NOTE | 2023-01-03 08:00 | DI.MRI_ITS ---
Exam(s) MR BRAIN WO EXAM: MR BRAIN WO CLINICAL HISTORY: acute CVA TECHNIQUE: Multiplanar multisequence MRI of the brain was performed. COMPARISON: CT CT BRAIN NECK CTA from 01/01/2023 FINDINGS: VENTRICLES AND EXTRA AXIAL SPACES: Normal in size and morphology for the patient's age and degree of atrophy. MIDLINE SHIFT: None. CEREBRAL PARENCHYMA: Areas of restricted diffusion seen in the right occipital lobe and a small porti on of the inferior left temporal lobe. Edema is visible on T2 and FLAIR images in the right occipita l lobe. No mass lesion identified. [id number] atrophy. HEMORRHAGE: None. BRAINSTEM/CEREBELLUM: Normal. VISUALIZED PARANASAL SINUSES/MASTOIDS:Clear. Vasculature: Normal flow void. Tortuous and prominent basilar artery. PITUITARY GLAND: Unremarkable. ORBITS: Unremarkable. IMPRESSION: areas of acute infarct in the right occipital and inferior left temporal lobes. DATA REPOSITORY:
[2023-01-03] MEDS: guaiFENesin 600 MG TABCR PO ×2 (08:50→21:39)
[2023-01-03] MEDS: Cholecalciferol (Vitamin D3) 1,000 UNIT TAB 1000 UNITS PO ×2 (08:50→21:39)
[2023-01-03] MEDS: Amoxicillin 500 MG CAP 1000 MG PO ×3 (08:50→21:39)
[2023-01-03] MEDS: Acetylcysteine 600 MG CAP PO ×2 (08:50→21:39)
[2023-01-03] MEDS: Pantoprazole 20 MG TABCR PO (08:51)
[2023-01-03] MEDS: Aspirin E.C. 81 MG TABEC PO (08:51)
[2023-01-03] MEDS: Doxycycline Hyclate 100 MG CAP PO ×2 (08:51→21:39)
[2023-01-03] MEDS: Clopidogrel 75 MG TAB PO (08:51)
[2023-01-03] MEDS: Polyethylene Glycol 3350 17 GM PACKET PO (08:51)
[2023-01-03] MEDS: Citalopram 20 MG TAB 40 MG PO (08:51)
[2023-01-03] MEDS: Magnesium Oxide 400 MG TAB PO (08:51)
[2023-01-03] MEDS: Gabapentin 300 MG CAP PO ×3 (08:51→21:38)
[2023-01-03] MEDS: Enoxaparin 40 MG/0.4 ML SYR SC (08:51)
[2023-01-03] MEDS: Insulin Aspart 300 UNITS/3 ML PEN SC ×4 (08:52→21:36)
[2023-01-03 10:07] LABS: Lyme Ab w Rflx to Lyme Confirm Negative (Negative)
--- NOTE | 2023-01-03 11:42 | PT.INTREAT ---
Date of service: 01/03/23 Time of Service: 11:10 PT Notes Visit Reasons: Cerebrovascular accident Physical Therapy Inpatient Treatment Note Date: 01/03/2023 Precautions: Remains on back precautions--No bending, lifting, or twisting. Subjective: Feels much better. Denies headache, chest pain, and lightheadedness throughout. Objective:? General Observation: Sitting on bedside chair. Mental Status: Alert and oriented as to person, place and purpose Pain: None reported Vital Signs: After first walk BP 122/74 mmHg, 94% oxygen saturation, 101 bpm Bed mobility/Transfers: Stand to sit? contact gurad assist with FWW Sit to stand contact guard assist with FWW Bed to toilet seat contact guard assist with FWW ? GAIT? Assistive Device: Front-wheeled walker? Weight bearing: FWB Assist: Contact guard assist? Distance:? 50 feet + 50 feet + 50 feet ? Deviation: Unequal step length due to preexisting R hip pain,? mildly kyphotic posture but is able to correct on command,? walker management improving THERA EX: Room exercises writtent on white board in patient's room Seated marches x 5 every two hours LAQ x 5 every 2 hours Ankle DF x 5 Balance:? Static Sitting: Good Dynamic Sitting:? Good Static Standing: Fair Dynamic Standing:?Fair Assessment:?? Responses much more automatic, appears less confused. Posture much improved today. Able to perform when asked to do deep breaths while on standing rest x 2. Strength deficit symmetric in B UE.? R hip weaker than L due to pre-existing pain.? Much improved cognition since last seen. Activity tolerance improving. DISCHARGE RECOMMENDATIONS: [] ? Home with no services [] [] ? Home with services [specify] [] ? Home with outpatient PT [] [X] ? SNF for continued rehabilitation. Patient will benefit from home health PT services in order to progress mobility level using least restrictive assistive ambulatory device, assess home safety, identify additional equipment needs, and establish a functional maintenance program that will increase ability of patient to remain at home. [] ? [employer] Care [] [] ? SNF versus LTC based on ability to participate and progress [] TREATMENT CODE/TIME:? 33677 x 20 minutes, [id number] X 11 minutes beginning at 11:10 AM.
--- NOTE | 2023-01-03 12:21 | W.PM.PROGNOT ---
Date of Service Date of service: 01/03/23 Time of Service: 12:22 Assessment and Plan Assessment and plan (1) Occipital cerebral infarction: Status: Acute Assessment and plan: subacute right occipital CVA, per CT, unclear if this is thrombotic or embolic. Continue aspirin, plavix, statin. Await echo, MRI brain. Await neurology consult. Monitor neurochecks. PT and speech consulted. 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 Continue tylenol, neurontin, prn hydrocodone. (3) S/P laminectomy: Status: Acute Assessment and plan: [facility] [place] feels that there is no evidence of infection in the spine. I am noting the positive blood culture (1 bottle/4) on admission. This is possibly a micrococcus, but more information will be available tomorrow. If not c/w contaminant, this would be a strong indication for obtaining an MRI and transferring. I will talk to ID once I have more information. I am reassured by improvement in CRP. The patient remains on empiric amoxicillin for the 1 positive blood culture on last admission with VRE. (4) Fever: Status: Resolved Assessment and plan: On last admission. Afebrile on this admission. Continue amoxicillin for the VRE in 1 blood culture bottle/8 on last admission. Does have 1 positive blood culture on this admission as well - as above. Repeat blood cultures negative. Continue doxycycline for the tick borne illness (imperically). CRP has markedly improved on this admission. (5) Positive blood culture: Status: Acute Assessment and plan: as above (6) Type 2 diabetes mellitus: Status: Chronic Assessment and plan: Continue SSI Qualifiers: Diabetes mellitus termination clerk insulin use: without nursing home use Diabetes mellitus complication status: without complication Qualified Code(s): E11.9 - Type 2 diabetes mellitus without complications (7) Essential hypertension: Status: Chronic Assessment and plan: Hold BB (permissive hypertension). (8) Urinary retention: Status: Acute Assessment and plan: On last admission. continue rodriguez (9) Chronic obstructive pulmonary disease (COPD): Status: Chronic Assessment and plan: continue home inhalers Qualifiers: COPD type: unspecified COPD Qualified Code(s): J44.9 - Chronic obstructive pulmonary disease, unspecified (10) DVT prophylaxis: Status: Acute Assessment and plan: Sc enoxaparin (11) Discharge planning issues: Status: Acute Assessment and plan: DNR/DNI Continues to require hospitalization Subjective Subjective Interval history since last seen: Mr Villavicencio feels better today. Denies dizziness, headache, CP, SOB, nausea. He feels more consistently awake and has had no trouble keeping track of his thoughts/speech. I discussed his one positive blood culture from this admission with microbiology - it is probably a micrococcus, but more information will be available tomorrow. It looks like a contaminant. Exam Narrative Exam Narrative: General: Pleasant elderly male who is A&Ox3, sitting comfortably in a chair HEENT: EOMI, MMM Heart: RRR, no m/r/g Lungs: CTAB Abdomen: soft, nontender, nondistended Extremities: no edema BLEs Objective Last Vital Signs Temp 36.8 C 01/03/23 11:40 Pulse 99 H 01/03/23 11:40 Resp 17 01/03/23 11:40 BP 125/74 01/03/23 11:40 Pulse Ox 96 01/03/23 11:40 Laboratory Results - last 24 hr 01/03/23 01/03/23 06:25 06:25 WBC 11.52 H RBC 3.93 L Hgb 11.9 L Hct 35.8 L MCV 91 MCH 30.3 MCHC 33.2 RDW 12.9 Plt Count 388 MPV 9.4 Immature Gran % 1.7 Neutrophils % 74.8 Lymphocytes % 10.8 Monocytes % 8.8 Eosinophils % 3.5 Basophils % 0.4 Nucleated RBC % 0.0 Absolute Neutrophils 8.62 H Absolute Lymphocytes 1.24 Absolute Monocytes 1.01 H Absolute Eosinophils 0.40 Absolute Basophils 0.05 Sodium 140 Potassium 4.0 Chloride 103 Carbon Dioxide 26.6 Anion Gap 10.4 BUN 14 Creatinine 1.0 Est GFR (CKD-EPI 2020) 74.21 Glucose 149 H Calcium 8.7 Magnesium 1.8 C-Reactive Protein 5.90 H Time Spent with Patient Time Spent with Patient: 25-34 minutes Time was spent: preparing to see the patient(eg.review tests), obtaining and/or reviewing separately otained hiistory, ordering medications,tests, procedures, referring, communicating with other health care management specialist, indepentently interpreting results, counseling the patient and care coordination
--- NOTE | 2023-01-03 16:50 | PDOC.CMPRO ---
Date of service: 01/03/23 Time of Service: 16:50 Care Management Progress Note Progress Note Text Progress Note Text: S/O: Daniel continues to require hospitalization and further medical work up following his recent CVA. He is planning to discharge back to the [facility], when able. PT recommends SNF for STR, when medically ready for discharge. No answer at the [facility] today X 2, CM will follow up on bed status in the morning. A: 82 year old male admitted to [facility] on 12/31/22 for CVA. P: Daniel requires close monitoring and further medical workup for CVA. Tick Panel is pending. Anticipate, he will return to the [facility] for STR, prior to returning home. He will transport via [facility] W[facility] van and follow up with facility/community providers and his discharge plan of care as prescribed. CM will continue to support discharge planning needs.
--- NOTE | 2023-01-03 17:14 | NCONE_ITS ---
Date of service: 01/03/23 Time of Service: 17:14 Assessment and Plan Assessment and plan (1) Occipital cerebral infarction: Status: Acute Assessment and plan: #1. Ischemic R occipital stroke with no apparent clinical manifestations. Etiology unknown. He has a small R vert with ?occlusion, but unclear if this is contributing or not. Work-up: -Telemetry with 30 day monitoring manager at discharge Medications: -aspirin 81mg daily + clopidogrel 75mg daily for secondary stroke prevention x30 days, then aspirin 81mg daily alone thereafter - he does not represent an aspirin failure as he was off of it -atrovastatin 80mg daily for secondary stroke prevention - ok to titrate at d/c to goal LDL <70 Other: -Goal LDL <70. Goal SBP 120-140. Goal A1c <7. -Physical therapy for weakness/deconditioning, s/p lumbar spine surgery He should f/up in the neurology clinic in 6-8 weeks. History of Present Illness History of Present Illness Chief Complaint: stroke Narrative: Handedness: right. HPI: Mr. Villavicencio is an 82 year-old with hyperlipidemia, heart disease, DM, GERD, COPD, depression, and Essential Tremor. He underwent L3-5 fusion/lamincetomy/foraminotomy at [facility] on 12/22/22 and d/c to [facility] on 12/24/22 vs 12/25/22. He was subsequently admitted to [facility] 12/25-12/29/22 for fever and cough, with 1/8 blood cultures growing VRE for which he was recommended abx x 2 weeks. He was discharged to SNF. He was re-admitted on 12/31/22 for ?AMS, chills, weakness. Mr. Villavicencio notes that that morning he couldn't understand what anyone was saying and that when he spoke it was only gibberish. Per hospital notes, it appears he returned to baseline either late on the day of admission or by the next day. He underwent CTH imaging given the AMS for which he was found to have an acute ischemic stroke in the right occipital lobe. He stopped aspirin 12/13/22 in anticipation of his surgery - it is not clear when or if he re-started it post- operatively. It appears it was re-started upon admission at [facility] on 12/25/22. He has since been placed on DAPT, no loading of clopidogrel as per [facility] Neurology. He has a rodriguez catheter. He isn't sure when it was placed. Work-up: -CTH (12/31/22): R occipital hypodensity concerning for subacute stroke. I reviewed these images personally and this is my personal interpretation. -CTA head/neck (01/01/23): Very small R vertebral artery with ?occlusion at C2. I reviewed these images personally and this is my personal interpretation. -TTE (01/03/23): EF 60%, no wall motion abnormalities. LA normal. -MRI brain w/o (01/03/23): subacute R occipital stroke. Mild-moderate atrophy. I reviewed these images personally and this is my personal interpretation. 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) Most recent MRI 08/25/2022 showing stenosis; Spine consult 11/01/2022 Degenerative joint disease (DJD) of lumbar spine (Acute) Effusion, right knee (Acute) Arthritis of right glenohumeral joint (Acute) Degenerative joint disease of right knee (Acute) Depo-Medrol injection: 05/07/2022 Bronchiectasis (Acute) Adrenal nodule (Acute) Rib pain on left side (Acute) Trochanteric bursitis of both hips (Chronic) Non-alcoholic fatty liver disease (Chronic 09/29/12) Type 2 diabetes mellitus (Chronic) Dx: 10/2018 Obesity (BMI 30-39.9) (Chronic) Advance directive in chart (Chronic 04/22/15) On-file with [facility] as of 04/22/2015 Sensorineural hearing loss, bilateral (Chronic 08/29/17) Osteoarthritis of knee (Chronic 08/13/13) Hypomagnesemia (Chronic 10/07/17) Hyperlipidemia, unspecified (Chronic 07/09/11) LDL GOAL 100 Gastroesophageal reflux disease (Chronic 07/09/11) Essential tremor (Chronic 07/27/11) Essential hypertension (Chronic 07/09/11) GOAL <130/80 Depression (Chronic 06/04/14) Long-term Celexa Rx Chronic obstructive pulmonary disease (COPD) (Chronic 09/29/12) MILD, 08/2012 PFTs FEV1 2.06 (70% pred and FVC), no response to bronchodilator; 11/17/15 bronchoscopy [facility]: NEG for Af[employer], fungus, & bacteria; cytology NEG for malignancy Cardiomyopathy (Chronic 04/10/12) BPH (benign prostatic hyperplasia) (Chronic 04/10/12) ASCVD (arteriosclerotic cardiovascular disease) (Chronic) S/p 5 vessel CABG 1995 Echo 09/27/2014 with normal LVEF Medical History Cataract 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 Essential tremor Heart disease Hypertension Sister Hypertensive disorder, systemic arterial Heart disease Brother , [place] at age 78. Heart disease Essential tremor Brother Heart disease Daughter Essential tremor Social History Smoking/Tobacco Use Status: Former Tobacco Use Tobacco: How many years used: 30 Smoking risk assessment performed?: Yes Alcohol Intake: never Drug use: Never Substance use type: does not use Adopted: No Caregiver/Support person: No Foster care: No Household members: spouse Housing: house Number of Children: 7 number of grandchildren: 25 Communication Needs: Hard of Hearing Education Level: high school Do you need help understanding health information?: Rarely current occupation: Ret[employer] Pets and animals: Yes Pets and animals: dog(s) Sexually active: No Do you think of yourself as: straight/heterosexual Current gender identity: male What is your relationship status?: How often do you talk on the phone with friends or family?: three or more times per week How often do you get together with friends or relatives?: once per week Do you belong to any clubs or organized social groups?: yes Panel score (0-1 are the most socially isolated patients): 3 What type of physical activity do you participate in: walking and other Details: House work Duration: 15-30 minutes/day Frequency: 5-6 times per week Lindy/Jew: Quaker Seatbelt use: always Drive intox or ride w/intox trackless trolley driver: No Water heater temp set <120 deg: Yes Working smoke detector in home: Yes Fire extinguisher in home: Yes Carbon monox detector in home: Yes Do you feel safe at home: Yes Do you feel safe in your relationship?: Yes Additional Social history: He has 5 step-children in addition to 3 biological. Visit Medication and Allergies Active Medications Generic Name Dose Route Start Last Admin Trade Name Freq PRN Reason Stop Dose Admin Acetaminophen 0 mg 12/31/22 22:09 01/02/23 21:35 Acetaminophen 325 Mg Tab PO 650 mg Q4H PRN PRN Administration Acetylcysteine 600 mg 01/01/23 08:30 01/03/23 08:50 Acetylcysteine 600 Mg Cap PO 600 mg BID GURJIT Administration Al Hydrox/Mg Hydrox/Simethicone 30 ml 12/31/22 22:09 Mylanta Suspension 30 Ml Cup PO Q2H PRN PRN Albuterol Sulfate 1 - 2 puff 12/31/22 22:15 Albuterol Hfa 8 Gm 60 Puff Inh IH Q4H PRN PRN Albuterol Sulfate 3 mg 12/31/22 22:45 Albuterol 2.5 Mg/3 Ml Inh Soln Vial IH Q4H PRN PRN Albuterol/Ipratropium 3 ml 12/31/22 22:15 Albuterol/Ipratropium 3 Ml Upd Vial IH PRN PRN Amoxicillin 1,000 mg 01/01/23 08:30 01/03/23 14:24 Amoxicillin 500 Mg Cap PO 1,000 mg TID GURJIT Administration Aspirin 81 mg 01/02/23 08:30 01/03/23 08:51 Aspirin E.C. 81 Mg Tabec PO 81 mg DAILY GURJIT Administration Atorvastatin Calcium 80 mg 01/01/23 20:00 01/02/23 21:37 Atorvastatin 40 Mg Tab PO 80 mg QPM GURJIT Administration Budesonide/Formoterol Fumarate 2 puff 01/01/23 08:30 01/03/23 07:50 Budesonide/Formoterol 80/4.5 6.9 Gm 60 Puff Inh IH 2 puffs BID GURJIT Administration Celecoxib 100 mg 12/31/22 22:15 Celecoxib 100 Mg Cap PO BID PRN pain Cholecalciferol 1,000 units 01/01/23 08:30 01/03/23 08:50 Cholecalciferol (Vitamin D3) 1,000 Unit Tab PO 1,000 units BID [facility] Administration Citalopram Hydrobromide 40 mg 01/01/23 08:30 01/03/23 08:51 Citalopram 20 Mg Tab PO 40 mg DAILY [facility] Administration Clopidogrel Bisulfate 75 mg 01/02/23 08:30 01/03/23 08:51 Clopidogrel 75 Mg Tab PO 75 mg DAILY [facility] Administration Clotrimazole 0 gm 01/01/23 08:30 01/03/23 08:53 Clotrimazole 1% 15 Gm Tube TP Not Given BID [facility] Cyclobenzaprine HCl 10 mg 12/31/22 22:15 Cyclobenzaprine 10 Mg Tab PO TID PRN Device 1 each 12/31/22 23:00 Inhaler, Assist Device MC DIRECTED [facility] Dextrose 0 gm 01/01/23 00:59 Glucose Oral Gel 15 Gm/37.5 Gm Tube PO DIRECTED PRN Dextrose/Water 0 gm 01/01/23 00:59 Dextrose 50%-Water 25 Gm/50 Ml Syr IVP DIRECTED PRN Dimethicone/Zinc Oxide 0 gm 12/31/22 22:09 Yolie Protect Cream 142 Gm Tube TP PRN PRN Docusate Sodium 100 mg 12/31/22 22:09 Docusate Sodium 100 Mg Cap PO TID PRN PRN Doxycycline Hyclate 100 mg 01/01/23 08:30 01/03/23 08:51 Doxycycline Hyclate 100 Mg Cap PO 100 mg BID GURJIT Administration Enoxaparin Sodium 40 mg 01/01/23 08:30 01/03/23 08:51 Enoxaparin 40 Mg/0.4 Ml Syr SC 40 mg Q24H GURJIT Administration Gabapentin 300 mg 01/01/23 08:30 01/03/23 14:24 Gabapentin 300 Mg Cap PO 300 mg TID GURJIT Administration Guaifenesin 600 mg 01/02/23 20:00 01/03/23 08:50 Guaifenesin 600 Mg Tabcr PO 600 mg BID GURJIT Administration Hydromorphone HCl 2 mg 12/31/22 22:15 Hydromorphone 2 Mg Tab PO Q4H PRN PRN Sodium Chloride 500 mls @ 0 mls/hr 12/31/22 22:09 Saline 500ml Bag IV PRN PRN As Directed IV Miscellaneous Supplies 1 each 12/31/22 22:15 Iv Access IV DIRECTED [facility] Insulin Aspart 0 units 01/01/23 08:00 01/03/23 17:12 Insulin Aspart 300 Units/3 Ml Pen SC 1 units 0800,1200,1700,2200 [facility] Administration Protocol Magnesium Hydroxide 30 ml 12/31/22 22:09 Milk Of Magnesia 30 Ml Cup PO DAILY PRN PRN Magnesium Oxide 400 mg 01/01/23 08:30 01/03/23 08:51 Magnesium Oxide 400 Mg Tab PO 400 mg DAILY GURJIT Administration Metoprolol Succinate 25 mg 01/01/23 08:30 01/01/23 08:33 Metoprolol Cr 25 Mg Tabcr PO 25 mg DAILY GURJIT Administration Pantoprazole Sodium 20 mg 01/01/23 08:30 01/03/23 08:51 Pantoprazole 20 Mg Tabcr PO 20 mg DAILY GURJIT Administration Polyethylene Glycol 17 gm 12/31/22 22:09 Polyethylene Glycol 3350 17 Gm Packet PO DAILY PRN PRN Constipation Polyethylene Glycol 17 gm 01/01/23 08:30 01/03/23 08:51 Polyethylene Glycol 3350 17 Gm Packet PO 17 gm DAILY GURJIT Administration Primidone 150 mg 01/02/23 22:00 01/02/23 21:36 Primidone 50 Mg Tab PO 150 mg HS GURJIT Administration Sennosides 1 tab 12/31/22 22:15 Senna Tab PO BID PRN Sodium Chloride 50 ml 12/31/22 16:00 01/01/23 08:57 Normal Saline - Diluent 50 Ml Vial IJ 50 ml .FOR DI USE GURJIT Administration Sodium Chloride 0 ml 12/31/22 22:09 Normal Saline Flush 10 Ml Syr IVP PRN PRN Umeclidinium [place] 0 cap 01/01/23 08:30 01/03/23 07:50 Umeclidinium 7 Cap Inhaler IH 1 inh DAILY GURJIT Administration Allergies codeine Adverse Reaction (Unknown, Verified 12/31/22 13:02) Exam Narrative Exam Narrative: Physical Exam: Gen: Patient of apparent stated age, NAD, BMI 35 Head and face: no facial or cranial abnormalities Neck: Supple, no meningismus, no occipital tenderness CV: RRR Resp: CTA B/L Abd: soft, nontender, nondistended Ext: No edema. No clubbing or cyanosis. No bony deformity. Neuro Exam: Language: fluency, naming, repetition, and comprehension intact; Mental Status: AAOx3, current events and fund of knowledge limited Speech: no dysarthria Cranial nerves: Funduscopy: not performed CN II: visual ragland intact CN III, IV, : extraocular movements intact, no nystagmus, pupils symmetric and reactive to light CN V: face sensation intact to LT CN VII: no facial asymmetry noted CN VIII: hearing intact bilaterally CN IX, X: palate rises symmetrically CN XI: trapezius/SCM 5/5 bilaterally CN XII: protrudes tongue symmetrically Sensory: intact to LT in all extremities Motor: bulk and tone intact. Fine motor movements intact bilaterally. No pronator drift. Strength 5/5 throughout including the deltoids, biceps, triceps, wrist extensors, hip flexors, knee flexors, knee extensors, ankle flexors, and ankle extensors. Reflexes: hyporeflexic throughout; toes down going bilaterally; Coordination: FTN and HTS intact bilaterally Gait: not seen Results Last Vital Signs Temp 99.7 F H 01/03/23 15:52 Pulse 85 01/03/23 15:52 Resp 18 01/03/23 15:52 BP 145/78 H 01/03/23 15:52 Pulse Ox 94 01/03/23 15:52 Labs 01/03/23 06:25 01/03/23 06:25 Labs: Laboratory Results - last 24 hr 12/31/22 01/03/23 01/03/23 15:13 06:25 06:25 WBC 11.52 H RBC 3.93 L Hgb 11.9 L Hct 35.8 L MCV 91 MCH 30.3 MCHC 33.2 RDW 12.9 Plt Count 388 MPV 9.4 Immature Gran % 1.7 Neutrophils % 74.8 Lymphocytes % 10.8 Monocytes % 8.8 Eosinophils % 3.5 Basophils % 0.4 Nucleated RBC % 0.0 Absolute Neutrophils 8.62 H Absolute Lymphocytes 1.24 Absolute Monocytes 1.01 H Absolute Eosinophils 0.40 Absolute Basophils 0.05 Sodium 140 Potassium 4.0 Chloride 103 Carbon Dioxide 26.6 Anion Gap 10.4 BUN 14 Creatinine 1.0 Est GFR (CKD-EPI 2020) 74.21 Glucose 149 H Calcium 8.7 Magnesium 1.8 C-Reactive Protein 5.90 H Lyme Disease Antibody Negative
--- NOTE | 2023-01-03 18:12 | PT.INTREAT ---
Date of service: 01/03/23 Time of Service: 15:28 PT Notes Visit Reasons: Cerebrovascular accident Inpatient Physical Therapy Treatment Note [facility] Date: 01/03/23 PRECAUTIONS: Fall, standard, activity as tolerated SUBJECTIVE: Patient sitting up in chair, agreeable to therapy. OBJECTIVE: PAIN: none reported BED MOBILITY/TRANSFERS Rolling L/R: independent Supine-sit: independent Sit-supine: independent Sit-stand: independent Stand-sit: independent Bed-Chair: independent Chair-bed: independent GAIT Assistive Device: front wheeled walker Weight bearing: full Assist: standby Distance: 225 feet Deviation: reduced step length, reduced step height, wide base of support THEREX: Sit to stands, mini squats, side steps (monster walk), standing heel raises, seated LAQ's, marching, hip adduction against pillow. ASSESSMENT: Patient tolerates therapy well PLAN: continue strengthening per plan of care TREATMENT CODE/TIME: 61054 gait 15 minutes, 31001 Ther Ex 11 minutes beginning at 15:28
[2023-01-03] MEDS: Clotrimazole 1% 15 GM TUBE TP (21:35)
[2023-01-03] MEDS: Atorvastatin 40 MG TAB 80 MG PO (21:38)
[2023-01-03] MEDS: Primidone 50 MG TAB 150 MG PO (21:39)
[2023-01-04] VITALS (8 sets, daily range): BP systolic 125–150; BP diastolic 76–88; PULSE 82–100; RESP 18–20; TEMP 36.5–37.1; O2SAT 95–97
[2023-01-04 07:15] LABS: Abs Immature Grans 0.21 10^3/uL (0.0-0.06); Absolute Basophil Count 0.07 10^3/uL (0.0-0.2); Absolute Eosinophil Count 0.39 10^3/uL (0.0-0.7); Absolute Monocyte Count 0.93 10^3/uL (0.1-0.8); Basophils % 0.6; Eosinophils % 3.2; HCT 35.2 % (40.0-50.0); HGB 11.8 g/dL (13.5-17.5); Immature Grans % 1.7; Lymphocytes % 11.1; MCHC 33.5 % (32.0-36.0); MCV 92 fL (80-95); MPV 9.7 fL (8.0-11.0); Monocytes % 7.6; Neutrophils % 75.8; Platelet Count 437 10^3/uL (130-400); RBC 3.81 10^6/uL (4.36-5.78); RDW 13.1 % (11.8-14.1); RDW-SD 43.8 fL
[2023-01-04 07:16] LABS: Absolute Lymphocyte Count 1.35 10^3/uL (1.2-3.4); Absolute Neutrophil Count 9.25 10^3/uL (1.2-6.7)
[2023-01-04 07:24] LABS: Anion Gap 11.2 mmol/L (3-11); BUN 15 mg/dL (7-18); C-Reactive Protein 4.96 mg/dL (0.0-0.3); CO2 24.8 mmol/L (21.0-32.0); CREATININE 1.1 mg/dL (0.70-1.30); Calcium 8.8 mg/dL (8.5-10.1); Chloride 104 mmol/L (98-107); Estimated GFR 66.19 (mL/min/1.73m2); Glucose 144 mg/dL (74-106); Potassium 4.1 mmol/L (3.5-5.1); Sodium 140 mmol/L (136-145)
[2023-01-04] MEDS: Acetaminophen 325 MG TAB PO ×2 (07:40→12:15)
[2023-01-04] MEDS: Doxycycline Hyclate 100 MG CAP PO ×2 (07:41→20:22)
[2023-01-04] MEDS: Pantoprazole 20 MG TABCR PO (07:41)
[2023-01-04] MEDS: Citalopram 20 MG TAB 40 MG PO (07:41)
[2023-01-04] MEDS: Aspirin E.C. 81 MG TABEC PO (07:41)
[2023-01-04] MEDS: Cholecalciferol (Vitamin D3) 1,000 UNIT TAB 1000 UNITS PO ×2 (07:41→20:23)
[2023-01-04] MEDS: Amoxicillin 500 MG CAP 1000 MG PO (07:41)
[2023-01-04] MEDS: Acetylcysteine 600 MG CAP PO ×2 (07:41→20:23)
[2023-01-04] MEDS: Gabapentin 300 MG CAP PO ×3 (07:41→20:24)
[2023-01-04] MEDS: Magnesium Oxide 400 MG TAB PO (07:41)
[2023-01-04] MEDS: Clopidogrel 75 MG TAB PO (07:42)
[2023-01-04] MEDS: guaiFENesin 600 MG TABCR PO ×2 (07:42→20:24)
[2023-01-04] MEDS: Enoxaparin 40 MG/0.4 ML SYR SC (07:42)
[2023-01-04] MEDS: Polyethylene Glycol 3350 17 GM PACKET PO (07:42)
[2023-01-04] MEDS: Clotrimazole 1% 15 GM TUBE TP ×2 (07:43→20:22)
[2023-01-04] MEDS: Insulin Aspart 300 UNITS/3 ML PEN SC ×4 (07:43→21:52)
[2023-01-04] MEDS: Umeclidinium 7 CAP INHALER IH (07:54)
[2023-01-04] MEDS: Budesonide/Formoterol 80/4.5 6.9 GM 60 PUFF INH IH ×2 (07:54→20:22)
--- NOTE | 2023-01-04 08:48 | PT.INTREAT ---
PT Notes Visit Reasons: Cerebrovascular accident Date: 01/04/23 PRECAUTIONS: Fall, standard, activity as tolerated SUBJECTIVE: Pt in recliner when approached for therapy, pt agreeable to participating with session, OBJECTIVE: ? PAIN: pt reports incisional pain when seated but reports that the pain is manageable.? BED MOBILITY/TRANSFERS? Sit-stand: independent? Stand-sit: independent? Bed-Chair: independent? Chair-bed:? independent ? GAIT? Assistive Device: front wheeled walker? Weight bearing: full Assist: standby ? Distance:? Morning 100', and 400' ? Deviation: forward leaning posture, short step height and length and walking a little far from the FWW, Becomes short of breath with exertion but recovers quickly with standing rest.? THEREX: pt review and return demonstration of nSeated exercises, seated marching 5x 1set, LAQ 5x 1set, ankle pumps/heel raise/toe raise. ? Therapeutic activity 11956: pt able to go up and down 6 steps doing step throught gait pattern using bilateral handrail SBA? ASSESSMENT:? Patient tolerates therapy well PLAN: Continue global strengthening per plan of care until patient is medically cleared for discharge TREATMENT CODE/TIME: morning Therapeutic activity 44669 15mins, therapeutic procedures 71354 15 minutes beginning, Gait 34754 15 minutes (8:00-8:45am)
--- NOTE | 2023-01-04 13:05 | PDOC.CMPRO ---
Date of service: 01/04/23 Time of Service: 13:05 Care Management Progress Note Progress Note Text Progress Note Text: S/O: Daniel continues to require hospitalization and further medical work up following his recent CVA. He is planning to discharge back to the [facility], when able and CM confirmed that his bed is being held. CM updated his DIL Colette Holloway when she called this morning. Daniel will also need a 30 day hospital monitor on discharge, per provider. CM will follow.? A: 82 year old male admitted to [facility] on 12/31/22 for CVA. P: Daniel requires close monitoring and further medical workup for CVA. Tick Panel is still pending. Anticipate, he will return to the [facility] for STR, prior to returning home. He will transport via [facility] W[facility] van and follow up with facility/community providers and his discharge plan of care as prescribed. CM will continue to support discharge planning needs.
[2023-01-04] MEDS: AMPICILLIN SODIUM 2 GM in Normal Saline 100 ML IVPB ×3 (14:00→21:50)
--- NOTE | 2023-01-04 15:29 | PGE_ITS ---
Date of Service Date of service: 01/04/23 Time of Service: 15:29 Assessment and Plan Assessment and plan (1) Occipital cerebral infarction: Status: Acute Assessment and plan: subacute right occipital CVA, per CT and MRI. Evaluated by neurology. Continue aspirin, plavix, statin. Agree with ID that septic embolism could not be ruled out given VRE in blood on 12/25/22. TTE does not show obvious vegetations, but he would benefit from a MICHELLE and transfer to [facility] for further evaluation by ID, neuro, and spine. No beds are available today. Abx switched to ampicillin. PT and speech consulted. 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 Continue tylenol, neurontin, prn hydrocodone. (3) S/P laminectomy: Status: Acute Assessment and plan: [facility] ortho again states that there is no evidence of infection in the spine. Blood culture that was positive on this admission (micrococcus) is likely a contaminant, but the VRE on last admission is concerning. ID feels that spinal infection cannot be ruled out and that the patient would benefit from transfer to [facility] for further workup. I am reassured by improvement in CRP, but we will keep trying to transfer the patient. Abx changed to ampicillin IV, as above (4) Fever: Status: Resolved Assessment and plan: On last admission. Afebrile on this admission. Switched to ampicillin, as above for VRE on last admission. Positive blood culture on this admission (micrococcus) is a contaminant. Continue doxycycline for the tick borne illness (empirically). CRP has markedly improved on this admission. (5) Positive blood culture: Status: Acute Assessment and plan: as above (6) Type 2 diabetes mellitus: Status: Chronic Assessment and plan: Continue SSI Qualifiers: Diabetes mellitus detention insulin use: without detention use Diabetes mellitus complication status: without complication Qualified Code(s): E11.9 - Type 2 diabetes mellitus without complications (7) Essential hypertension: Status: Chronic Assessment and plan: Hold BB (permissive hypertension). (8) Urinary retention: Status: Acute Assessment and plan: On last admission. continue rodriguez (9) Chronic obstructive pulmonary disease (COPD): Status: Chronic Assessment and plan: continue home inhalers Qualifiers: COPD type: unspecified COPD Qualified Code(s): J44.9 - Chronic obstructive pulmonary disease, unspecified (10) DVT prophylaxis: Status: Acute Assessment and plan: Sc enoxaparin (11) Discharge planning issues: Status: Acute Assessment and plan: DNR/DNI Continues to require hospitalization May require a swing bed level stay for extended course of IV ampicillin; however, we will attempt to transfer to [facility] again tomorrow. Subjective Subjective Interval history since last seen: Mr Villavicencio states that he is feeling well. Denies dizziness, CP, SOB, n/v, new numbness/tingling. He did have a headache earlier, but it resolved. Vision is at baseline. Speech/thinking is 90% back to baseline. I discussed the case with ID at [facility]: Dr Lawson feels that the CVA on this admission is concerning given VRE in blood on last admission - he feels this could be a septic embolism or a mycotic aneurysm. He feels the patient should be transferred to [facility] where spine, neuro, and ID can all evaluate the patient in person, and that he might need a MICHELLE. Dr Lawson also recommended switching the patient to ampicillin. Unfortunately, there are no beds available on either stroke or medicine services today at [facility], and orthopedics/spine did not feel that the patient's positive blood culture represented an infection, so they did not accept the case in transfer. Exam Narrative Exam Narrative: General: Pleasant elderly male who is A&Ox3, laying comfortably in bed HEENT: EOMI, MMM Heart: RRR, no m/r/g Lungs: CTAB Back: midline incision with stitches looks like it is healing well - c/d/i Abdomen: soft, nontender, nondistended Extremities: no edema BLEs Objective Last Vital Signs Temp 36.6 C 01/04/23 15:26 Pulse 84 01/04/23 15:26 Resp 20 01/04/23 15:26 BP 140/76 01/04/23 15:26 Pulse Ox 97 01/04/23 15:26 Laboratory Results - last 24 hr 01/04/23 01/04/23 06:25 06:25 WBC 12.20 H RBC 3.81 L Hgb 11.8 L Hct 35.2 L MCV 92 MCH 31.0 MCHC 33.5 RDW 13.1 Plt Count 437 H MPV 9.7 Immature Gran % 1.7 Neutrophils % 75.8 Lymphocytes % 11.1 Monocytes % 7.6 Eosinophils % 3.2 Basophils % 0.6 Nucleated RBC % 0.0 Absolute Neutrophils 9.25 H Absolute Lymphocytes 1.35 Absolute Monocytes 0.93 H Absolute Eosinophils 0.39 Absolute Basophils 0.07 Sodium 140 Potassium 4.1 Chloride 104 Carbon Dioxide 24.8 Anion Gap 11.2 H BUN 15 Creatinine 1.1 Est GFR (CKD-EPI 2020) 66.19 Glucose 144 H Calcium 8.8 Magnesium 2.0 C-Reactive Protein 4.96 H Objective Narrative Objective Narrative: Brain MRI: areas of acute infarct in the right occipital and inferior left temporal lobes. (Per Dr Lewis, the L temporal lobe finding is an artifact). Echo: Normal left ventricular wall thickness and chamber size.? Ejection fraction is 60%.? Wall motion is normal Normal right ventricular size and systolic function Both atria are normal in size Aortic valve is sclerotic and trileaflet without stenosis or regurgitation Mild mitral annular calcification Mildly dilated ascending aorta 3.63 cm Time Spent with Patient Time Spent with Patient: 35-49 minutes Time was spent: preparing to see the patient(eg.review tests), obtaining and/or reviewing separately otained hiistory, ordering medications,tests, procedures, referring, communicating with other health insurance healthcare representative, indepentently interpreting results, counseling the patient and care coordination
--- NOTE | 2023-01-04 15:37 | PT.INTREAT ---
Date of service: 01/04/23 Time of Service: 15:28 PT Notes Visit Reasons: Cerebrovascular accident Inpatient Physical Therapy Treatment Note [facility] Date: 01/04/23 PRECAUTIONS: Fall, standard, activity as tolerated SUBJECTIVE: patient sitting up in chair, agreeable to therapy. OBJECTIVE: PAIN: none reported BED MOBILITY/TRANSFERS Sit-stand: independent Stand-sit: independent Bed-Chair: independent Chair-bed: independent GAIT Assistive Device: front wheeled walker Weight bearing: full Assist: standby Distance: 350 feet, seated rest, 325 feet Deviation: reduced stride length, reduced step height, becomes short of breath VITALS: closely monitored via telemetry, MICHI Bobbi takes blood pressure, SaO2, temp during seated break. THEREX: seated LE strengthening including sit to stands, LAQ's, heel raises, toe raises. STAIRS: ascends and descends 2 stairs with bilateral railings standby assist. ASSESSMENT: patient tolerates therapy well PLAN: continue strengthening per plan of care until patient is medically ready for discharge TREATMENT CODE/TIME: 29586 Ther ex 17 minutes, [id number] Gait 30 minutes beginning at 14:45
--- NOTE | 2023-01-04 15:47 | PHACLINREV_ITS ---
Pharmacy Admission Review Admission Clinical Review Admission Pharmacy Review: Discharge planning issues (Acute) DVT prophylaxis (Acute) Occipital cerebral infarction (Acute) Urinary retention (Acute) Positive blood culture (Acute) S/P laminectomy (Acute) codeine Adverse Reaction (Unknown, Verified 12/31/22 13:02) Resuscitation Status DNR/DNI Height 5 ft 8 in Weight 105.2 kg Pharmacy Admission Review Renal Dosing Renal Dosing: BUN 15 mg/dL (7-18) 01/04/23 06:25 Creatinine 1.1 mg/dL (0.70-1.30) 01/04/23 06:25 Medications needing adjustments: Reviewed (eCrCl 58 ml/min, all orders appropriately dosed) Anticoagulation Anticoagulation: Hgb 11.8 g/dL (13.5-17.5) L 01/04/23 06:25 Hct 35.2 % (40.0-50.0) L 01/04/23 06:25 Plt Count 437 10^3/uL (130-400) H 01/04/23 06:25 Creatinine 1.1 mg/dL (0.70-1.30) 01/04/23 06:25 DVT Prophylaxis: Reviewed Medications: Enoxaparin Opiate Usage Evaluate Pain Scale/Pains Meds: N/A Relevant Labs Relevant Labs: ESR 30 mm/hr (0-20) H 12/31/22 15:13 Sodium 140 mmol/L (136-145) 01/04/23 06:25 Potassium 4.1 mmol/L (3.5-5.1) 01/04/23 06:25 Chloride 104 mmol/L (98-107) 01/04/23 06:25 Magnesium 2.0 mg/dL (1.8-2.4) 01/04/23 06:25 C-Reactive Protein 4.96 mg/dL (0.0-0.3) H 01/04/23 06:25 DM Control DM Control: Fingersticks have been somewhat elevated, A1C is 6.5 Insulin Dosing: Reviewed Insulin Dosing, Diabetic Medication: aspart per SS (sensitive) -- patient has NIDM2 listed as a problem but does not appear to be on any ODAs at home, sliding scale and finger sticks ordered Cardiac Review Cardiac Review: Troponin I < 50 ng/L (<or=60) 12/31/22 16:45 EF%, DEWAYNE's, B-Blockers, Diuretics: Reviewed QTc Review If Elevated: N/A IV to PO Switch IV Medications: Reviewed Home Meds Home Med List reviewed: Reviewed Relevent Home Meds Not ordered & why?: All ordered. 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
[2023-01-04 16:50] LABS: Anaplasma phagocytophilum Negative (Negative); B. miyamotoi PCR Negative (Negative); Babesia divergens/MO-1 Negative (Negative); Babesia duncani Negative (Negative); Babesia microti Negative (Negative); Ehrlichia chaffeensis Negative (Negative); Ehrlichia ewingii/canis Negative (Negative); Ehrlichia muris eauclairensis Negative (Negative)
[2023-01-04] MEDS: HYDROmorphone 2 MG TAB PO (17:28)
[2023-01-04] MEDS: Atorvastatin 40 MG TAB 80 MG PO (20:28)
[2023-01-04] MEDS: Normal Saline Flush 10 ML SYR IVP (21:51)
[2023-01-04] MEDS: Primidone 50 MG TAB 150 MG PO (21:52)
[2023-01-05] VITALS (8 sets, daily range): BP systolic 112–154; BP diastolic 67–86; PULSE 70–103; RESP 18–21; TEMP 36.1–36.6; O2SAT 93–97
[2023-01-05] MEDS: Normal Saline Flush 10 ML SYR IVP ×6 (01:45→21:55)
[2023-01-05] MEDS: HYDROmorphone 2 MG TAB PO ×3 (01:45→18:06)
[2023-01-05] MEDS: AMPICILLIN SODIUM 2 GM in Normal Saline 100 ML IVPB ×6 (01:47→21:54)
[2023-01-05 07:14] LABS: Abs Immature Grans 0.22 10^3/uL (0.0-0.06); Absolute Eosinophil Count 0.47 10^3/uL (0.0-0.7); Absolute Neutrophil Count 8.22 10^3/uL (1.2-6.7); Basophils % 0.4; Eosinophils % 4.2; HCT 34.4 % (40.0-50.0); HGB 11.2 g/dL (13.5-17.5); Lymphocytes % 12.5; MCH 30.1 pg (27.0-33.0); MCHC 32.6 % (32.0-36.0); MCV 93 fL (80-95); MPV 9.3 fL (8.0-11.0); Monocytes % 7.7; Neutrophils % 73.2; Platelet Count 443 10^3/uL (130-400); RBC 3.72 10^6/uL (4.36-5.78); RDW 13.1 % (11.8-14.1); RDW-SD 43.8 fL; WBC 11.23 10^3/uL (4.4-10.8)
[2023-01-05 07:22] LABS: Absolute Basophil Count 0.04 10^3/uL (0.0-0.2); Absolute Monocyte Count 0.86 10^3/uL (0.1-0.8)
[2023-01-05] MEDS: Enoxaparin 40 MG/0.4 ML SYR SC (07:32)
[2023-01-05] MEDS: Pantoprazole 20 MG TABCR PO (07:33)
[2023-01-05] MEDS: Magnesium Oxide 400 MG TAB PO (07:33)
[2023-01-05] MEDS: Polyethylene Glycol 3350 17 GM PACKET PO (07:33)
[2023-01-05] MEDS: guaiFENesin 600 MG TABCR PO ×2 (07:33→20:35)
[2023-01-05] MEDS: Clopidogrel 75 MG TAB PO (07:33)
[2023-01-05] MEDS: Gabapentin 300 MG CAP PO ×3 (07:33→20:37)
[2023-01-05] MEDS: Citalopram 20 MG TAB 40 MG PO (07:33)
[2023-01-05] MEDS: Acetylcysteine 600 MG CAP PO ×2 (07:33→20:35)
[2023-01-05] MEDS: Acetaminophen 325 MG TAB PO (07:33)
[2023-01-05] MEDS: Clotrimazole 1% 15 GM TUBE TP ×2 (07:34→20:35)
[2023-01-05] MEDS: Doxycycline Hyclate 100 MG CAP PO ×2 (07:34→20:35)
[2023-01-05] MEDS: Insulin Aspart 300 UNITS/3 ML PEN SC ×2 (07:34→11:39)
[2023-01-05] MEDS: Aspirin E.C. 81 MG TABEC PO (07:34)
[2023-01-05] MEDS: Cholecalciferol (Vitamin D3) 1,000 UNIT TAB 1000 UNITS PO ×2 (07:34→20:35)
[2023-01-05 07:36] LABS: BUN 14 mg/dL (7-18); C-Reactive Protein 3.85 mg/dL (0.0-0.3); Calcium 8.4 mg/dL (8.5-10.1); Chloride 102 mmol/L (98-107); Estimated GFR 74.21 (mL/min/1.73m2); Glucose 145 mg/dL (74-106); Magnesium 1.9 mg/dL (1.8-2.4); Sodium 136 mmol/L (136-145)
[2023-01-05] MEDS: Umeclidinium 7 CAP INHALER IH (07:40)
[2023-01-05] MEDS: Budesonide/Formoterol 80/4.5 6.9 GM 60 PUFF INH IH ×2 (07:40→19:39)
--- NOTE | 2023-01-05 12:00 | PT.INTREAT ---
PT Notes Visit Reasons: Cerebrovascular accident Inpatient Physical Therapy Treatment Note [facility] Date: 01/05/23 SUBJECTIVE: Adolfo reports that he may be transferred [place] [facility] at some point today. He is feeling better. OBJECTIVE: [] BED MOBILITY/TRANSFERS pt sitting in recliner Sit-stand: SBA Stand-sit:SBA GAIT Assistive Device: FWW Weight bearing:full Assist: SBA Distance: approx 600' VITALS: monitored by nursing ASSESSMENT: tolerated session well. No LOB, SOB or fatigue. PLAN: continue to progress functional mobility as per PT POC TREATMENT CODE/TIME: 20 min. ([id number])
--- NOTE | 2023-01-05 15:03 | PDOC.CMPRO ---
Date of service: 01/05/23 Time of Service: 15:03 Care Management Progress Note Progress Note Text Progress Note Text: S/O: Daniel continues to require hospitalization. Per provider, potential transfer to [facility] for further evaluation by ID, neuro, and spine. He is planning to discharge back to the [facility], when able and CM confirmed that the [facility] is currently holding his bed. CM will follow.?? A: 82 year old male admitted to [facility] on 12/31/22 for CVA. P: Daniel requires close monitoring and further medical workup for CVA. Tick Panel is still pending. Anticipate, he will return to the [facility] for STR, prior to returning home. He will transport via [facility] W[facility]C van and follow up with facility/community providers and his discharge plan of care as prescribed. CM will continue to support discharge planning needs.
--- NOTE | 2023-01-05 15:16 | PT.INNT ---
PT Notes Visit Reasons: Cerebrovascular accident Date: 01/05/23 PRECAUTIONS: Fall, standard, activity as tolerated SUBJECTIVE: Pt in recliner when approached for therapy this afternoon, pt agreed to participating with therapy., OBJECTIVE: ? PAIN: on incision unrated .? BED MOBILITY/TRANSFERS? Sit-stand: independent? Stand-sit: independent? Bed-Chair: independent? Chair-bed:? independent ? GAIT? Assistive Device: front wheeled walker? Weight bearing: full Assist: standby ? Distance:? Morning 600', and 20' ? Deviation: forward leaning posture, short step height and length and walking a little far from the FWW, Becomes short of breath with exertion but recovers quickly with standing rest.? Therapeutic Activity 39438 Stair negotiation training going up 6 steps 2 up/down, 4 step 3steps down/up?bilateral handrail, step through gait pattern, tube management for rodriguez catheter supervision. ? ASSESSMENT:? Pt reports feeling frustrated, wanting to go home soon, did not have any complaint of fatigue or pain post session. PLAN: Continue global strengthening per plan of care until patient is medically cleared for discharge TREATMENT CODE/TIME: morning Therapeutic activity 41816 15mins, Gait 55044 16 minutes (3:10-3:41pm)
--- NOTE | 2023-01-05 17:22 | W.PM.PROGNOT ---
Date of Service Date of service: 01/05/23 Time of Service: 17:23 Assessment and Plan Assessment and plan (1) Occipital cerebral infarction: Status: Acute Assessment and plan: #1. Ischemic R occipital stroke with no apparent clinical manifestations. Etiology unknown. He has a small R vert with ?occlusion, but unclear if this is contributing or not. ID raised possibility of septic emboli from VRE (found in 07/25 bottles). Work-up: -Telemetry with 30 day chief librarian circulation department at discharge -MICHELLE Medications: -aspirin 81mg daily + clopidogrel 75mg daily for secondary stroke prevention x30 days, then aspirin 81mg daily alone thereafter - he does not represent an aspirin failure as he was off of it -atrovastatin 80mg daily for secondary stroke prevention - ok to titrate at d/c to goal LDL <70 -antibiotics as per ID Other: -Goal LDL <70. Goal SBP 120-140. Goal A1c <7. -Physical therapy for weakness/deconditioning, s/p lumbar spine surgery He should f/up in the neurology clinic in 6-8 weeks. Subjective Subjective Interval history since last seen: Mr. Villavicencio remains inhospital. He has been switched to IV ampicillin. ID raised concern that his stroke could have been secondary to septic emboli from the previously found VRE....They are recommending MICHELLE. He is awaiting transfer to [facility]. Mr. Villavicencio states that no one has told him anything about what is going on. I asked him what he remembered about his stroke, and I couldn't recall anything, though he did know that he did have a stroke. ?cognitive impairment which we should explore outpatient. His tremor remains stable. Exam Narrative Exam Narrative: Physical Exam: Constitutional: Patient of apparent stated age, well nourished, well developed, no acute distress Neuro: MS/Language/Speech: Alert, oriented, clear language (fluency and comprehension), no dysarthria Motor: Normal bulk and tone. FMM intact, no pronator drift. 5/5 strength in bilateral upper and lower extremities. Mild L>R UE postural and action tremor. Coordination: Finger to nose performed without dysmetria Objective Last Vital Signs Temp 97.9 F 01/05/23 14:56 Pulse 79 01/05/23 14:56 Resp 18 01/05/23 14:56 BP 121/77 01/05/23 14:56 Pulse Ox 95 01/05/23 14:56 Laboratory Results - last 24 hr 12/31/22 01/05/23 01/05/23 15:13 06:45 06:45 WBC 11.23 H RBC 3.72 L Hgb 11.2 L Hct 34.4 L MCV 93 MCH 30.1 MCHC 32.6 RDW 13.1 Plt Count 443 H MPV 9.3 Immature Gran % 2.0 Neutrophils % 73.2 Lymphocytes % 12.5 Monocytes % 7.7 Eosinophils % 4.2 Basophils % 0.4 Nucleated RBC % 0.0 Absolute Neutrophils 8.22 H Absolute Lymphocytes 1.40 Absolute Monocytes 0.86 H Absolute Eosinophils 0.47 Absolute Basophils 0.04 Sodium 136 Potassium 4.0 Chloride 102 Carbon Dioxide 25.0 Anion Gap 9.0 BUN 14 Creatinine 1.0 Est GFR (CKD-EPI 2020) 74.21 Glucose 145 H Calcium 8.4 L Magnesium 1.9 C-Reactive Protein 3.85 H B. divergens/MO-1 PCR Negative Babesia duncani (PCR) Negative Babesia microti DNA PCR Negative E.chaffeensis DNA (PCR) Negative E.ewingii/canis DNA PCR Negative E.muris eauclairensis (PCR) Negative A. phagocytophilum (PCR) Negative Blood B. miyamotoi (PCR) Negative Time Spent with Patient Time Spent with Patient: 25-34 minutes Time was spent: preparing to see the patient(eg.review tests), referring, communicating with other health ostomy care nurse and counseling the patient
--- NOTE | 2023-01-05 20:04 | PGE_ITS ---
Date of Service Date of service: 01/05/23 Time of Service: 20:07 Assessment and Plan Assessment and plan (1) Occipital cerebral infarction: Status: Acute Assessment and plan: subacute right occipital CVA, per CT and MRI. Evaluated by neurology. Continue aspirin, plavix, statin. [facility] ID: septic embolism could not be ruled out given VRE in blood on 12/25/22. TTE does not show obvious vegetations, but he would benefit from a MICHELLE and transfer to [facility] for further evaluation by ID, neuro, and spine. No beds are available again today. Continue IV ampicillin. PT and speech consulted. 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 Continue tylenol, neurontin, prn hydrocodone. (3) S/P laminectomy: Status: Acute Assessment and plan: [facility] ortho again stated on 01/04/23 that there is no evidence of infection in the spine. Blood culture that was positive on this admission (micrococcus) is likely a contaminant, but the VRE on last admission is concerning. ID feels that spinal infection cannot be ruled out and that the patient would benefit from transfer to [facility] for further workup. I am reassured by improvement in CRP, but we will keep trying to transfer the patient. Abx changed to ampicillin IV, as above Reattempt transfer again tomorrow. (4) Fever: Status: Resolved Assessment and plan: On last admission. Afebrile on this admission. Switched to ampicillin, as above for VRE on last admission. Positive blood culture on this admission (micrococcus) is a contaminant. Continue doxycycline for the tick borne illness (empirically). CRP has markedly improved on this admission. (5) Positive blood culture: Status: Acute Assessment and plan: as above (6) Type 2 diabetes mellitus: Status: Chronic Assessment and plan: Continue SSI Qualifiers: Diabetes mellitus snf insulin use: without intermediate manager use Diabetes mellitus complication status: without complication Qualified Code(s): E11.9 - Type 2 diabetes mellitus without complications (7) Essential hypertension: Status: Chronic Assessment and plan: Hold BB (permissive hypertension). (8) Urinary retention: Status: Acute Assessment and plan: On last admission. continue rodriguez (9) Chronic obstructive pulmonary disease (COPD): Status: Chronic Assessment and plan: continue home inhalers Qualifiers: COPD type: unspecified COPD Qualified Code(s): J44.9 - Chronic obstructive pulmonary disease, unspecified (10) DVT prophylaxis: Status: Acute Assessment and plan: Sc enoxaparin (11) Discharge planning issues: Status: Acute Assessment and plan: DNR/DNI Continues to require hospitalization May require a swing bed level stay for extended course of IV ampicillin; however, we will attempt to transfer to [facility] again tomorrow. Subjective Subjective Interval history since last seen: Mr Villavicencio thinks that his thinking is almost back to baseline. He does note that he has difficulty with some special words, but for the most part things are better. Denies headache, dizziness, CP, SOB, n/v. He has been ambulating with PT. Afebrile. Discussed case with Dr Lewis: the patient will need outpatient cognitive testing as he does appear to have a mild cognitive deficit. Exam Narrative Exam Narrative: General: Pleasant elderly male who is A&Ox3, laying comfortably in bed HEENT: EOMI, MMM Heart: RRR, no m/r/g Lungs: CTAB Abdomen: soft, nontender, nondistended Extremities: no edema BLEs Objective Last Vital Signs Temp 36.5 C 01/05/23 18:14 Pulse 86 01/05/23 18:14 Resp 18 01/05/23 18:14 BP 126/78 01/05/23 18:14 Pulse Ox 97 01/05/23 18:14 Laboratory Results - last 24 hr 12/31/22 01/05/23 01/05/23 15:13 06:45 06:45 WBC 11.23 H RBC 3.72 L Hgb 11.2 L Hct 34.4 L MCV 93 MCH 30.1 MCHC 32.6 RDW 13.1 Plt Count 443 H MPV 9.3 Immature Gran % 2.0 Neutrophils % 73.2 Lymphocytes % 12.5 Monocytes % 7.7 Eosinophils % 4.2 Basophils % 0.4 Nucleated RBC % 0.0 Absolute Neutrophils 8.22 H Absolute Lymphocytes 1.40 Absolute Monocytes 0.86 H Absolute Eosinophils 0.47 Absolute Basophils 0.04 Sodium 136 Potassium 4.0 Chloride 102 Carbon Dioxide 25.0 Anion Gap 9.0 BUN 14 Creatinine 1.0 Est GFR (CKD-EPI 2020) 74.21 Glucose 145 H Calcium 8.4 L Magnesium 1.9 C-Reactive Protein 3.85 H B. divergens/MO-1 PCR Negative Babesia duncani (PCR) Negative Babesia microti DNA PCR Negative E.chaffeensis DNA (PCR) Negative E.ewingii/canis DNA PCR Negative E.muris eauclairensis (PCR) Negative A. phagocytophilum (PCR) Negative Blood B. miyamotoi (PCR) Negative Time Spent with Patient Time Spent with Patient: 35-49 minutes Time was spent: preparing to see the patient(eg.review tests), obtaining and/or reviewing separately otained hiistory, ordering medications,tests, procedures, referring, communicating with other health health care sanitary technician, indepentently interpreting results, counseling the patient and care coordination
[2023-01-05] MEDS: Atorvastatin 40 MG TAB 80 MG PO (20:35)
[2023-01-05] MEDS: Primidone 50 MG TAB 150 MG PO (21:56)
[2023-01-06] VITALS (9 sets, daily range): BP systolic 124–157; BP diastolic 67–84; PULSE 80–89; RESP 18–20; TEMP 36.2–37.6; O2SAT 94–97
[2023-01-06] MEDS: AMPICILLIN SODIUM 2 GM in Normal Saline 100 ML IVPB ×6 (01:22→22:11)
[2023-01-06 06:50] LABS: Abs Immature Grans 0.19 10^3/uL (0.0-0.06); Absolute Basophil Count 0.05 10^3/uL (0.0-0.2); Absolute Eosinophil Count 0.52 10^3/uL (0.0-0.7); Absolute Lymphocyte Count 1.31 10^3/uL (1.2-3.4); Absolute Monocyte Count 0.94 10^3/uL (0.1-0.8); Basophils % 0.5; HCT 32.9 % (40.0-50.0); HGB 11.1 g/dL (13.5-17.5); Immature Grans % 1.8; Lymphocytes % 12.6; MCHC 33.7 % (32.0-36.0); MCV 92 fL (80-95); MPV 9.4 fL (8.0-11.0); Neutrophils % 71.1; Platelet Count 425 10^3/uL (130-400); RBC 3.58 10^6/uL (4.36-5.78); RDW-SD 43.3 fL; WBC 10.41 10^3/uL (4.4-10.8)
[2023-01-06 07:38] LABS: Anion Gap 7.1 mmol/L (3-11); BUN 13 mg/dL (7-18); CO2 25.9 mmol/L (21.0-32.0); CREATININE 0.9 mg/dL (0.70-1.30); Calcium 8.3 mg/dL (8.5-10.1); Chloride 104 mmol/L (98-107); Estimated GFR 84.22 (mL/min/1.73m2); Glucose 141 mg/dL (74-106); Magnesium 1.8 mg/dL (1.8-2.4); Potassium 3.9 mmol/L (3.5-5.1); Sodium 137 mmol/L (136-145)
[2023-01-06] MEDS: Pantoprazole 20 MG TABCR PO (07:38)
[2023-01-06] MEDS: Cholecalciferol (Vitamin D3) 1,000 UNIT TAB 1000 UNITS PO ×2 (07:38→19:33)
[2023-01-06] MEDS: Magnesium Oxide 400 MG TAB PO (07:38)
[2023-01-06] MEDS: Enoxaparin 40 MG/0.4 ML SYR SC (07:38)
[2023-01-06] MEDS: guaiFENesin 600 MG TABCR PO ×2 (07:38→19:34)
[2023-01-06] MEDS: Doxycycline Hyclate 100 MG CAP PO ×2 (07:38→19:33)
[2023-01-06] MEDS: Clopidogrel 75 MG TAB PO (07:38)
[2023-01-06] MEDS: Citalopram 20 MG TAB 40 MG PO (07:38)
[2023-01-06] MEDS: Gabapentin 300 MG CAP PO ×3 (07:38→19:34)
[2023-01-06] MEDS: Acetylcysteine 600 MG CAP PO ×2 (07:38→19:33)
[2023-01-06] MEDS: Aspirin E.C. 81 MG TABEC PO (07:38)
[2023-01-06] MEDS: Polyethylene Glycol 3350 17 GM PACKET PO (07:39)
[2023-01-06] MEDS: Nystatin POWDER 60 GM JAR TP ×3 (07:39→19:34)
[2023-01-06] MEDS: Clotrimazole 1% 15 GM TUBE TP ×2 (07:40→19:34)
[2023-01-06] MEDS: Insulin Aspart 300 UNITS/3 ML PEN SC ×3 (07:41→22:28)
[2023-01-06] MEDS: Umeclidinium 7 CAP INHALER IH (09:15)
[2023-01-06] MEDS: Budesonide/Formoterol 80/4.5 6.9 GM 60 PUFF INH IH ×2 (09:15→19:21)
[2023-01-06] MEDS: Acetaminophen 325 MG TAB PO ×2 (09:21→22:37)
--- NOTE | 2023-01-06 09:49 | PT.INTREAT ---
Date of service: 01/06/23 Time of Service: 09:27 PT Notes Visit Reasons: Cerebrovascular accident Inpatient Physical Therapy Treatment Note [facility] Date: 01/06/23 PRECAUTIONS: Fall, standard, activity as tolerated SUBJECTIVE: Patient sitting up in recliner, Fay in place, IV access right arm, IV connected. Agreeable to therapy. OBJECTIVE: PAIN: 09/24, reports it has improved some, they just gave me a Tylenol. C/o stiffness in the back. BED MOBILITY/TRANSFERS Rolling L/R: independent Supine-sit: independent Sit-supine: independent Sit-stand: independent Stand-sit: independent Bed-Chair: independent Chair-bed: independent GAIT Assistive Device: FWW Weight bearing: full Assist: Standby - help to manage IV pole Distance: 350 feet Deviation: Patient becomes slightly short of breath VITALS: closely monitored via telemetry STAIRS: ascends and descends 2 six inch steps and 3 four inch steps with bilateral railing and standby assist ASSESSMENT: Discussed clearing patient to maneuver independently within facility with supervising PT Rica on 01/04, discussed with patient and RN Angela slaughter [email or web address] Patient cleared to walk independently with FWW as long as his IV is not connected. Patient verbalizes understanding and agreement. PLAN: Continue strengthening per plan of care until patient is medically ready to discharge home with [facility] TREATMENT CODE/TIME: 86508 Gait 19 minutes beginning at 9:27
--- NOTE | 2023-01-06 11:34 | CMPROGNOTE_ITS ---
Date of service: 01/06/23 Time of Service: 11:34 Care Management Progress Note Progress Note Text Progress Note Text: S/O: Adolfo has been ambulating independently in the hallway with his walker. He was sitting up in a chair when CM met with him. He stated that he is feeling well and is just waiting for a bed at [facility].??Per provider, ID feels that spinal infection cannot be ruled out and that the patient would benefit from transfer to [facility] for further workup. Adolfo remains afebrile, his vital signs are stable and his WBC has normalized. A: 82 year old male admitted to [facility] on 12/31/22 for CVA. P: Daniel requires close monitoring and further medical workup for CVA. Tick Panel is still pending. Anticipate, he will return to the [facility] for STR, prior to returning home. He will transport via [facility] W/C van and follow up with facility/community providers and his discharge plan of care as prescribed. CM will continue to support discharge planning needs.
--- NOTE | 2023-01-06 17:31 | PGE_ITS ---
Date of Service Date of service: 01/06/23 Time of Service: 17:32 Assessment and Plan Assessment and plan (1) Occipital cerebral infarction: Status: Acute Assessment and plan: subacute right occipital CVA, per CT and MRI. Evaluated by neurology. Continue aspirin, plavix, statin. [facility] ID: septic embolism could not be ruled out given VRE in blood on 12/25/22. TTE does not show obvious vegetations, but he would benefit from a MICHELLE and transfer to [facility] for further evaluation by ID, neuro, and spine. No beds are available again today. Continue IV ampicillin. PT and speech consulted. Now cleared to ambulate independently. 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 Continue tylenol, neurontin, prn hydrocodone. (3) S/P laminectomy: Status: Acute Assessment and plan: [facility] ortho again stated on 01/04/23 that there is no evidence of infection in the spine. Blood culture that was positive on this admission (micrococcus) is likely a contaminant, but the VRE on last admission is concerning. ID feels that spinal infection cannot be ruled out and that the patient would benefit from transfer to [facility] for further workup. Some reassurance by improvement in CRP, but we will keep trying to transfer the patient. Cont to trend CrP. Abx changed to ampicillin IV, as above Reattempt transfer again tomorrow. (4) Fever: Status: Resolved Assessment and plan: On last admission. Afebrile on this admission. Switched to ampicillin, as above for VRE on last admission. Positive blood culture on this admission (micrococcus) is a contaminant. Continue doxycycline for the tick borne illness (empirically). CRP has markedly improved on this admission. (5) Positive blood culture: Status: Acute Assessment and plan: as above (6) Type 2 diabetes mellitus: Status: Chronic Assessment and plan: Continue SSI Qualifiers: Diabetes mellitus fpc insulin use: without adjunct faculty for medical terminology use Diabetes mellitus complication status: without complication Qualified Code(s): E11.9 - Type 2 diabetes mellitus without complications (7) Essential hypertension: Status: Chronic Assessment and plan: Hold BB (permissive hypertension). (8) Urinary retention: Status: Acute Assessment and plan: On last admission. continue rodriguez (9) Chronic obstructive pulmonary disease (COPD): Status: Chronic Assessment and plan: continue home inhalers Stable. Qualifiers: COPD type: unspecified COPD Qualified Code(s): J44.9 - Chronic obstructive pulmonary disease, unspecified (10) DVT prophylaxis: Status: Acute Assessment and plan: Sc enoxaparin (11) Discharge planning issues: Status: Acute Assessment and plan: DNR/DNI Continues to require hospitalization May require a swing bed level stay for extended course of IV ampicillin; however, we will attempt to transfer to [facility] again tomorrow. Subjective Subjective Patient reports: no new complaints, feels better, tolerating a regular diet and afebrile; denies nausea, vomiting or shortness of breath Interval history since last seen: Cleared to walk independently Exam Narrative Exam Narrative: General: Sitting in recliner. Pleasant, cooperative and conversant. HEENT: sclera clear, MMM. Heart: RRR, no murmur. Lungs: CTAB Abdomen: soft, nontender, nondistended Extremities: no edema BLEs Objective Last Vital Signs Temp 36.8 C 01/06/23 15:22 Pulse 82 01/06/23 15:22 Resp 18 01/06/23 08:00 BP 146/67 H 01/06/23 15:22 Pulse Ox 96 01/06/23 15:22 Laboratory Results - last 24 hr 01/06/23 01/06/23 06:05 06:05 WBC 10.41 RBC 3.58 L Hgb 11.1 L Hct 32.9 L MCV 92 MCH 31.0 MCHC 33.7 RDW 13.0 Plt Count 425 H MPV 9.4 Immature Gran % 1.8 Neutrophils % 71.1 Lymphocytes % 12.6 Monocytes % 9.0 Eosinophils % 5.0 Basophils % 0.5 Nucleated RBC % 0.0 Absolute Neutrophils 7.40 H Absolute Lymphocytes 1.31 Absolute Monocytes 0.94 H Absolute Eosinophils 0.52 Absolute Basophils 0.05 Sodium 137 Potassium 3.9 Chloride 104 Carbon Dioxide 25.9 Anion Gap 7.1 BUN 13 Creatinine 0.9 Est GFR (CKD-EPI 2020) 84.22 Glucose 141 H Calcium 8.3 L Magnesium 1.8 Time Spent with Patient Time Spent with Patient: 25-34 minutes Time was spent: preparing to see the patient(eg.review tests), obtaining and/or reviewing separately otained hiistory, ordering medications,tests, procedures, referring, communicating with other health career development engineer and indepentently interpreting results
[2023-01-06] MEDS: Cyclobenzaprine 10 MG TAB PO (17:34)
[2023-01-06] MEDS: HYDROmorphone 2 MG TAB PO (17:34)
[2023-01-06] MEDS: Atorvastatin 40 MG TAB 80 MG PO (19:33)
[2023-01-06] MEDS: Primidone 50 MG TAB 150 MG PO (22:14)
[2023-01-07] VITALS (11 sets, daily range): BP systolic 127–149; BP diastolic 62–78; PULSE 52–99; RESP 18–22; TEMP 36.3–36.8; O2SAT 92–96
[2023-01-07] MEDS: AMPICILLIN SODIUM 2 GM in Normal Saline 100 ML IVPB ×5 (02:02→18:01)
[2023-01-07] MEDS: Acetaminophen 325 MG TAB PO ×2 (06:02→20:28)
[2023-01-07 07:22] LABS: ALT 41 U/L (16-63); AST 22 U/L (15-37); Albumin 2.6 g/dL (3.4-5.0); Alkaline Phosphatase 113 U/L (46-116); Anion Gap 6.6 mmol/L (3-11); BUN 13 mg/dL (7-18); Bilirubin, Total 0.5 mg/dL (0.2-1.0); C-Reactive Protein 3.24 mg/dL (0.0-0.3); CO2 28.4 mmol/L (21.0-32.0); Calcium 8.5 mg/dL (8.5-10.1); Chloride 105 mmol/L (98-107); Estimated GFR 74.21 (mL/min/1.73m2); Glucose 151 mg/dL (74-106); Potassium 3.9 mmol/L (3.5-5.1); Sodium 140 mmol/L (136-145)
[2023-01-07] MEDS: Polyethylene Glycol 3350 17 GM PACKET PO (07:41)
[2023-01-07] MEDS: Enoxaparin 40 MG/0.4 ML SYR SC (07:41)
[2023-01-07] MEDS: guaiFENesin 600 MG TABCR PO ×2 (07:42→20:24)
[2023-01-07] MEDS: Cholecalciferol (Vitamin D3) 1,000 UNIT TAB 1000 UNITS PO ×2 (07:42→20:23)
[2023-01-07] MEDS: Clopidogrel 75 MG TAB PO (07:42)
[2023-01-07] MEDS: Doxycycline Hyclate 100 MG CAP PO (07:42)
[2023-01-07] MEDS: Pantoprazole 20 MG TABCR PO (07:42)
[2023-01-07] MEDS: Citalopram 20 MG TAB 40 MG PO (07:42)
[2023-01-07] MEDS: Magnesium Oxide 400 MG TAB PO (07:42)
[2023-01-07] MEDS: Gabapentin 300 MG CAP PO ×3 (07:42→20:23)
[2023-01-07] MEDS: Acetylcysteine 600 MG CAP PO ×2 (07:42→20:23)
[2023-01-07] MEDS: Aspirin E.C. 81 MG TABEC PO (07:43)
[2023-01-07] MEDS: Nystatin POWDER 60 GM JAR TP ×3 (07:44→22:20)
[2023-01-07] MEDS: Clotrimazole 1% 15 GM TUBE TP (07:44)
[2023-01-07] MEDS: Budesonide/Formoterol 80/4.5 6.9 GM 60 PUFF INH IH ×2 (07:54→19:24)
[2023-01-07] MEDS: Umeclidinium 7 CAP INHALER IH (07:54)
[2023-01-07] MEDS: Insulin Aspart 300 UNITS/3 ML PEN SC ×4 (08:11→22:25)
--- NOTE | 2023-01-07 09:58 | CMPROGNOTE_ITS ---
Date of service: 01/07/23 Time of Service: 09:58 Care Management Progress Note Progress Note Text Progress Note Text: S/O: Adolfo has been ambulating independently in the hallway with his walker. He was sitting up in a chair visiting with a friend when CM met with him. He remains in good spirits and is still waiting for a bed at [facility]. A: 82 year old male admitted to [facility] on 12/31/22 for CVA. P: Adolfo's discharge plan remains unclear. He has been waiting for a bed at [facility] since Tuesday. If no beds open up he may return to the [facility] or discharge home qwith home health services. he will likely require an extended course of IV antibiotics and that may affect the final plan. CM will continue to support discharge planning needs.
[2023-01-07] MEDS: HYDROmorphone 2 MG TAB PO (12:38)
[2023-01-07] MEDS: Cyclobenzaprine 10 MG TAB PO (12:39)
--- NOTE | 2023-01-07 14:28 | PT.INTREAT ---
Date of service: 01/07/23 Time of Service: 14:00 PT Notes Visit Reasons: Cerebrovascular accident Inpatient Physical Therapy Treatment Note [facility] Date: 01/07/23 PRECAUTIONS: Fall, standard, activity as tolerated, spine precautions (no lifting, bending, twisting) SUBJECTIVE: Patient laying in bed, appears cold, agreeable to therapy. Does c/o being cold. Offered a robe, which patient accepted. OBJECTIVE: PAIN: none BED MOBILITY/TRANSFERS Rolling L/R: independent Supine-sit: independent Sit-supine: independent Sit-stand: independent Stand-sit: independent Bed-Chair: independent Chair-bed: independent] GAIT Assistive Device: FWW Weight bearing: full Assist: independent Distance: 650 feet THEREX: unsupported sit to stands 2x5, with arms crossed in front, glute set at the top. ASSESSMENT: Patient tolerates therapy well PLAN: progress balance activities per consultation with supervising PT Nona Sanders TREATMENT CODE/TIME: 44408 TherEx 25 minutes beginning at 14:00
--- NOTE | 2023-01-07 16:31 | W.PM.PROGNOT ---
Date of Service Date of service: 01/07/23 Time of Service: 16:32 Assessment and Plan Assessment and plan (1) Occipital cerebral infarction: Status: Acute Assessment and plan: subacute right occipital CVA, per CT and MRI. Evaluated by neurology. Continue aspirin, plavix, statin. [facility] ID: septic embolism could not be ruled out given VRE in blood on 12/25/22. TTE does not show obvious vegetations, but he would benefit from a MICHELLE and transfer to [facility] for further evaluation by ID, neuro, and spine. No beds are available again today, 01/07. ID consulted; waiting for call back. Continue IV ampicillin. PT and speech consulted. Now cleared to ambulate independently. 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 Continue tylenol, neurontin, prn hydrocodone. (3) S/P laminectomy: Status: Acute Assessment and plan: [facility] ortho again stated on 01/04/23 that there is no evidence of infection in the spine. Blood culture that was positive on this admission (micrococcus) is likely a contaminant, but the VRE on last admission is concerning. ID feels that spinal infection cannot be ruled out and that the patient would benefit from transfer to [facility] for further workup. Some reassurance by improvement in CRP, but we will keep trying to transfer the patient. Cont to trend CrP. Abx changed to ampicillin IV, as above Reattempt transfer again tomorrow. (4) Fever: Status: Resolved Assessment and plan: On last admission. Afebrile on this admission. Switched to ampicillin, as above for VRE on last admission. Positive blood culture on this admission (micrococcus) is a contaminant. D/C doxycycline; tick borne panel neg. CRP has markedly improved on this admission. (5) Positive blood culture: Status: Acute Assessment and plan: as above (6) Type 2 diabetes mellitus: Status: Chronic Assessment and plan: Continue SSI Qualifiers: Diabetes mellitus assistant terminal manager insulin use: without fdc use Diabetes mellitus complication status: without complication Qualified Code(s): E11.9 - Type 2 diabetes mellitus without complications (7) Essential hypertension: Status: Chronic Assessment and plan: BB was held; permissive HTN initially. Can now restart. (8) Urinary retention: Status: Acute Assessment and plan: On last admission. continue rodriguez (9) Chronic obstructive pulmonary disease (COPD): Status: Chronic Assessment and plan: continue home inhalers Stable. Qualifiers: COPD type: unspecified COPD Qualified Code(s): J44.9 - Chronic obstructive pulmonary disease, unspecified (10) DVT prophylaxis: Status: Acute Assessment and plan: Sc enoxaparin (11) Discharge planning issues: Status: Acute Assessment and plan: DNR/DNI Continues to require hospitalization May require a swing bed level stay for extended course of IV ampicillin; however, we will attempt to transfer to [facility] again tomorrow. Subjective Subjective Patient reports: no new complaints and afebrile; denies nausea, vomiting or shortness of breath Interval history since last seen: Walking in hallway frequently with walker unassisted. Exam Narrative Exam Narrative: General: Walking in hallway. Pleasant, cooperative and conversant. HEENT: sclera clear, MMM. Heart: RRR, no murmur. Lungs: CTAB Extremities: no edema BLEs Pscyh: A&O x 3. Affect appropriate. Objective Last Vital Signs Temp 36.8 C 01/07/23 15:06 Pulse 97 H 01/07/23 15:06 Resp 22 01/07/23 15:06 BP 141/73 H 01/07/23 15:06 Pulse Ox 96 01/07/23 15:06 Laboratory Results - last 24 hr 01/07/23 06:40 Sodium 140 Potassium 3.9 Chloride 105 Carbon Dioxide 28.4 Anion Gap 6.6 BUN 13 Creatinine 1.0 Est GFR (CKD-EPI 2020) 74.21 Glucose 151 H Calcium 8.5 Total Bilirubin 0.5 AST 22 ALT 41 Alkaline Phosphatase 113 C-Reactive Protein 3.24 H Total Protein 6.0 L Albumin 2.6 L Time Spent with Patient Time Spent with Patient: 25-34 minutes Time was spent: preparing to see the patient(eg.review tests), obtaining and/or reviewing separately otained hiistory, ordering medications,tests, procedures, referring, communicating with other health residential caregiver, indepentently interpreting results and counseling the patient
[2023-01-07] MEDS: Atorvastatin 40 MG TAB 80 MG PO (20:23)
[2023-01-07] MEDS: Normal Saline Flush 10 ML SYR IVP (20:24)
[2023-01-07] MEDS: Primidone 50 MG TAB 150 MG PO (22:20)
[2023-01-08] VITALS (9 sets, daily range): BP systolic 129–158; BP diastolic 60–87; PULSE 75–93; RESP 18–22; TEMP 36.2–36.9; O2SAT 94–97
--- NOTE | 2023-01-08 | DI.RAD_ITS ---
Exam(s) XR PORTABLE CHEST AP POST LINE EXAM: XR PORTABLE CHEST AP POST LINE CLINICAL HISTORY: PICC placement TECHNIQUE: 2D digital imaging was performed. COMPARISON: CR,XR XR PORTABLE CHEST AP from 01/02/2023 FINDINGS: Exam limited by poor penetration. LUNGS: No focal area of consolidation. No pleural abnormality seen. A PICC line has been placed via the left arm. The tip projects in the superior vena cava. HEART: Normal size. AORTA: Normal diameter. BONES: Unremarkable for age. Soft tissues: Unremarkable. IMPRESSION: Satisfactory placement of PICC line. DATA REPOSITORY: RADIATION DOSE DELIVERED:
[2023-01-08] MEDS: AMPICILLIN SODIUM 2 GM in Normal Saline 100 ML IVPB ×6 (00:03→21:41)
[2023-01-08] MEDS: Citalopram 20 MG TAB 40 MG PO (07:48)
[2023-01-08] MEDS: Aspirin E.C. 81 MG TABEC PO (07:48)
[2023-01-08] MEDS: Gabapentin 300 MG CAP PO ×3 (07:48→21:35)
[2023-01-08] MEDS: Metoprolol CR 25 MG TABCR PO (07:48)
[2023-01-08] MEDS: Acetylcysteine 600 MG CAP PO ×2 (07:48→21:35)
[2023-01-08] MEDS: Clopidogrel 75 MG TAB PO (07:48)
[2023-01-08] MEDS: Acetaminophen 325 MG TAB PO ×2 (07:48→21:36)
[2023-01-08] MEDS: Magnesium Oxide 400 MG TAB PO (07:49)
[2023-01-08] MEDS: Enoxaparin 40 MG/0.4 ML SYR SC (07:50)
[2023-01-08] MEDS: Cholecalciferol (Vitamin D3) 1,000 UNIT TAB 1000 UNITS PO ×2 (07:50→21:35)
[2023-01-08] MEDS: Clotrimazole 1% 15 GM TUBE TP ×2 (07:50→21:37)
[2023-01-08] MEDS: Nystatin POWDER 60 GM JAR TP ×3 (07:51→21:37)
[2023-01-08] MEDS: Polyethylene Glycol 3350 17 GM PACKET PO (07:51)
[2023-01-08] MEDS: Pantoprazole 20 MG TABCR PO (07:51)
[2023-01-08] MEDS: guaiFENesin 600 MG TABCR PO ×2 (07:51→21:35)
[2023-01-08] MEDS: Budesonide/Formoterol 80/4.5 6.9 GM 60 PUFF INH IH (08:01)
[2023-01-08] MEDS: Umeclidinium 7 CAP INHALER IH (08:01)
[2023-01-08] MEDS: Insulin Aspart 300 UNITS/3 ML PEN SC ×4 (08:16→21:50)
--- NOTE | 2023-01-08 14:54 | DI.VRAD_ITS ---
PROCEDURE INFORMATION: Exam: XR Chest Exam date and time: 01/08/2023 2:20 PM Age: 82 years old Clinical indication: Device placement; Picc TECHNIQUE: Imaging protocol: Radiologic exam of the chest. Views: 1 view. COMPARISON: CR XR PORTABLE CHEST AP 01/02/2023 5:24 PM FINDINGS: Tubes, catheters and devices: Left peripherally inserted central venous catheter tip in the midportion of the superior vena cava. Lungs: Unremarkable. No consolidation. Pleural spaces: Unremarkable. No pleural effusion. No pneumothorax. Heart/Mediastinum: Unremarkable. No cardiomegaly. Bones/joints: Unremarkable. IMPRESSION: Standard placement of the PICC. Dictated and Authenticated by: Lance Watson MD. Ordering:YAN Slaughter MD
--- NOTE | 2023-01-08 17:35 | PGE_ITS ---
Date of Service Date of service: 01/08/23 Time of Service: 17:35 Assessment and Plan Assessment and plan (1) Occipital cerebral infarction: Status: Acute Assessment and plan: subacute right occipital CVA, per CT and MRI. Evaluated by neurology. Continue aspirin, plavix, statin. [facility] ID: septic embolism could not be ruled out given VRE in blood on 12/25/22. TTE does not show obvious vegetations, but he would benefit from a MICHELLE and transfer to [facility] for further evaluation by ID, neuro, and spine. No beds are available again today, 01/07. ID consulted; Now OK with forgoing MICHELLE since improving and cultures negative. Continue IV ampicillin. Considered linezolid but incompatible with his citalopram. PT Now cleared to ambulate independently. 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 Continue tylenol, neurontin, prn hydrocodone. He states much improvement in back pain and ability to ambulate since laminectomy. (3) S/P laminectomy: Status: Acute Assessment and plan: [facility] ortho again stated on 01/04/23 that there is no evidence of infection in the spine. Blood culture that was positive on this admission (micrococcus) is likely a contaminant, but the VRE on last admission is concerning. ID felt that spinal infection cannot be ruled out and that the patient would benefit from transfer to [facility] for further workup including a MICHELLE. No bed has been available at [facility] and ID now OK with forgoing MICHELLE. WBC count normalized and CRP improved. Abx changed to ampicillin IV, as above (4) Fever: Status: Resolved Assessment and plan: On last admission. Afebrile on this admission. Switched to ampicillin, as above for VRE on last admission. Positive blood culture on this admission (micrococcus) is a contaminant. D/C doxycycline; tick borne panel neg. CRP has markedly improved on this admission. (5) Positive blood culture: Status: Acute Assessment and plan: as above (6) Type 2 diabetes mellitus: Status: Chronic Assessment and plan: Continue SSI Qualifiers: Diabetes mellitus termination clerk insulin use: without fci use Diabetes mellitus complication status: without complication Qualified Code(s): E11.9 - Type 2 diabetes mellitus without complications (7) Essential hypertension: Status: Chronic Assessment and plan: BB was held; permissive HTN initially. Can now restart. (8) Urinary retention: Status: Acute Assessment and plan: On last admission. continue rodriguez (9) Chronic obstructive pulmonary disease (COPD): Status: Chronic Assessment and plan: continue home inhalers Stable. Qualifiers: COPD type: unspecified COPD Qualified Code(s): J44.9 - Chronic obstructive pulmonary disease, unspecified (10) DVT prophylaxis: Status: Acute Assessment and plan: Sc enoxaparin (11) Discharge planning issues: Status: Acute Assessment and plan: DNR/DNI Continues to require hospitalization May require a swing bed level stay for extended course of IV ampicillin; however, we will attempt to transfer to [facility] again tomorrow. Subjective Subjective Patient reports: no new complaints, tolerating a regular diet and afebrile; denies nausea, vomiting or shortness of breath Interval history since last seen: Walks solo in hallway with walker. Exam Narrative Exam Narrative: General: Walking in hallway. Pleasant, cooperative and conversant. HEENT: sclera clear, MMM. Heart: RRR, no murmur. Lungs: CTAB Extremities: no edema BLEs Pscyh: A&O x 3. Affect appropriate. Objective Last Vital Signs Temp 36.8 C 01/08/23 15:41 Pulse 75 01/08/23 15:41 Resp 18 01/08/23 15:41 BP 132/77 01/08/23 15:41 Pulse Ox 97 01/08/23 15:41 Time Spent with Patient Time Spent with Patient: 25-34 minutes Time was spent: preparing to see the patient(eg.review tests), obtaining and/or reviewing separately otained hiistory, ordering medications,tests, procedures, referring, communicating with other health interior plant caretaker, indepentently interpreting results, counseling the patient and care coordination
[2023-01-08] MEDS: Primidone 50 MG TAB 150 MG PO (21:36)
[2023-01-08] MEDS: Atorvastatin 40 MG TAB 80 MG PO (21:36)
[2023-01-09] VITALS (8 sets, daily range): BP systolic 115–131; BP diastolic 71–77; PULSE 69–88; RESP 16–18; TEMP 36.2–37; O2SAT 93–96
[2023-01-09] MEDS: Budesonide/Formoterol 80/4.5 6.9 GM 60 PUFF INH IH ×3 (00:15→19:20)
[2023-01-09] MEDS: HYDROmorphone 2 MG TAB PO ×4 (00:15→20:42)
[2023-01-09] MEDS: AMPICILLIN SODIUM 2 GM in Normal Saline 100 ML IVPB ×6 (00:44→20:35)
[2023-01-09] MEDS: Normal Saline Flush 10 ML SYR IVP (00:44)
[2023-01-09] MEDS: Normal Saline 500 ML 30 ML IV (00:44)
[2023-01-09 07:35] LABS: C-Reactive Protein 1.98 mg/dL (0.0-0.3)
[2023-01-09] MEDS: Polyethylene Glycol 3350 17 GM PACKET PO (07:43)
[2023-01-09] MEDS: Acetylcysteine 600 MG CAP PO ×2 (07:43→20:26)
[2023-01-09] MEDS: Pantoprazole 20 MG TABCR PO (07:43)
[2023-01-09] MEDS: Magnesium Oxide 400 MG TAB PO (07:43)
[2023-01-09] MEDS: guaiFENesin 600 MG TABCR PO ×2 (07:43→20:26)
[2023-01-09] MEDS: Gabapentin 300 MG CAP PO ×3 (07:43→20:26)
[2023-01-09] MEDS: Cholecalciferol (Vitamin D3) 1,000 UNIT TAB 1000 UNITS PO ×2 (07:43→20:26)
[2023-01-09] MEDS: Aspirin E.C. 81 MG TABEC PO (07:43)
[2023-01-09] MEDS: Clopidogrel 75 MG TAB PO (07:43)
[2023-01-09] MEDS: Nystatin POWDER 60 GM JAR TP ×2 (07:44→13:16)
[2023-01-09] MEDS: Citalopram 20 MG TAB 40 MG PO (07:44)
[2023-01-09] MEDS: Cyclobenzaprine 10 MG TAB PO (07:44)
[2023-01-09] MEDS: Enoxaparin 40 MG/0.4 ML SYR SC (07:44)
[2023-01-09] MEDS: Clotrimazole 1% 15 GM TUBE TP (07:57)
[2023-01-09] MEDS: Metoprolol CR 25 MG TABCR PO (07:58)
[2023-01-09] MEDS: Umeclidinium 7 CAP INHALER IH (08:18)
[2023-01-09 11:07] LABS: HCT 33.1 % (40.0-50.0); MCHC 33.2 % (32.0-36.0); MCV 93 fL (80-95); MPV 9.5 fL (8.0-11.0); Platelet Count 420 10^3/uL (130-400); RBC 3.55 10^6/uL (4.36-5.78); RDW 13.2 % (11.8-14.1); RDW-SD 44.9 fL; WBC 9.16 10^3/uL (4.4-10.8)
[2023-01-09] MEDS: Insulin Aspart 300 UNITS/3 ML PEN SC (13:04)
--- NOTE | 2023-01-09 15:13 | W.PM.PROGNOT ---
Date of Service Date of service: 01/09/23 Time of Service: 15:13 Assessment and Plan Assessment and plan (1) Occipital cerebral infarction: Status: Acute Assessment and plan: subacute right occipital CVA, per CT and MRI. Evaluated by neurology. Continue aspirin, plavix, statin. [facility] ID: septic embolism could not be ruled out given VRE in blood on 12/25/22. TTE does not show obvious vegetations, but he would benefit from a MICHELLE and transfer to [facility] for further evaluation by ID, neuro, and spine. No beds are available again today, 01/07. ID consulted; Now OK with forgoing MICHELLE since improving and cultures negative. Continue IV ampicillin. Considered linezolid but incompatible with his citalopram. PT Now cleared to ambulate independently. 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 Continue tylenol, neurontin, prn hydrocodone. He states much improvement in back pain and ability to ambulate since laminectomy. (3) S/P laminectomy: Status: Acute Assessment and plan: [facility] ortho again stated on 01/04/23 that there is no evidence of infection in the spine. Blood culture that was positive on this admission (micrococcus) is likely a contaminant, but the VRE on last admission is concerning. ID felt that spinal infection cannot be ruled out and that the patient would benefit from transfer to [facility] for further workup including a MICHELLE. No bed has been available at [facility] and ID now OK with forgoing MICHELLE. WBC count normalized and CRP improved (23.25 >>>1.98). Abx changed to ampicillin IV, as above (4) Fever: Status: Resolved Assessment and plan: On last admission. Afebrile on this admission. Switched to ampicillin, as above for VRE on last admission. Positive blood culture on this admission (micrococcus) is a contaminant. D/C doxycycline; tick borne panel neg. CRP has markedly improved on this admission. (5) Positive blood culture: Status: Acute Assessment and plan: as above Second cultures negative drawn on 01/02/23. Will need 5 weeks outpt antibiotics. 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 Can now restart. (8) Urinary retention: Status: Acute Assessment and plan: On last admission. continue rodriguez (9) Chronic obstructive pulmonary disease (COPD): Status: Chronic Assessment and plan: continue home inhalers Stable. Qualifiers: COPD type: unspecified COPD Qualified Code(s): J44.9 - Chronic obstructive pulmonary disease, unspecified (10) DVT prophylaxis: Status: Acute Assessment and plan: Sc enoxaparin (11) Discharge planning issues: Status: Acute Assessment and plan: DNR/DNI Home tomorrow or the following day; when antibiotic for home infusion ready. Home with HH. Subjective Subjective Patient reports: no new complaints, tolerating a regular diet and afebrile; denies diarrhea, nausea, vomiting or shortness of breath Exam Narrative Exam Narrative: General: Walking in hallway with FWW. Pleasant, cooperative and conversant. HEENT: sclera clear, MMM. Heart: RRR, no murmur. Lungs: CTAB Extremities: no edema BLEs Pscyh: A&O x 3. Affect appropriate. Objective Last Vital Signs Temp 36.2 C L 01/09/23 06:15 Pulse 80 01/09/23 08:00 Resp 18 01/09/23 06:15 BP 115/71 01/09/23 08:00 Pulse Ox 96 01/09/23 08:00 Laboratory Results - last 24 hr 01/09/23 01/09/23 06:05 06:05 WBC 9.16 RBC 3.55 L Hgb 11.0 L Hct 33.1 L MCV 93 MCH 31.0 MCHC 33.2 RDW 13.2 Plt Count 420 H MPV 9.5 C-Reactive Protein 1.98 H Time Spent with Patient Time Spent with Patient: <25 minutes Time was spent: preparing to see the patient(eg.review tests), ordering medications,tests, procedures, referring, communicating with other health care center manager, indepentently interpreting results, counseling the patient and care coordination
--- NOTE | 2023-01-09 16:23 | PDOC.CMPRO ---
Date of service: 01/09/23 Time of Service: 16:23 Care Management Progress Note Progress Note Text Progress Note Text: Home IV ABX referrals faxed to [facility] and [facility], respectively. PICC line information and orders faxed as well. Awaiting determination for patient cost, coordination of medication, supplies. CM will need to notify [facility] of discharge planning and fax clinical PICC and orders to [facility] for further review, as well.
[2023-01-09] MEDS: Primidone 50 MG TAB 150 MG PO (20:25)
[2023-01-09] MEDS: Atorvastatin 40 MG TAB 80 MG PO (20:26)
[2023-01-10] VITALS (9 sets, daily range): BP systolic 113–160; BP diastolic 65–87; PULSE 77–100; RESP 16–20; TEMP 36.4–37.3; O2SAT 95–98
[2023-01-10] MEDS: AMPICILLIN SODIUM 2 GM in Normal Saline 100 ML IVPB ×6 (00:09→20:13)
[2023-01-10] MEDS: Budesonide/Formoterol 80/4.5 6.9 GM 60 PUFF INH IH ×2 (07:25→19:17)
[2023-01-10] MEDS: Umeclidinium 7 CAP INHALER IH (07:25)
[2023-01-10 07:28] LABS: ALT 31 U/L (16-63); AST 19 U/L (15-37); Albumin 2.7 g/dL (3.4-5.0); Alkaline Phosphatase 124 U/L (46-116); Anion Gap 10.2 mmol/L (3-11); BUN 14 mg/dL (7-18); Bilirubin, Total 0.5 mg/dL (0.2-1.0); CO2 25.8 mmol/L (21.0-32.0); CREATININE 0.9 mg/dL (0.70-1.30); Calcium 8.6 mg/dL (8.5-10.1); Chloride 101 mmol/L (98-107); Estimated GFR 84.22 (mL/min/1.73m2); Glucose 137 mg/dL (74-106); Potassium 4.1 mmol/L (3.5-5.1); Sodium 137 mmol/L (136-145); Total Protein 6.1 g/dL (6.4-8.2)
[2023-01-10] MEDS: Enoxaparin 40 MG/0.4 ML SYR SC (09:24)
[2023-01-10] MEDS: Aspirin E.C. 81 MG TABEC PO (09:25)
[2023-01-10] MEDS: Polyethylene Glycol 3350 17 GM PACKET PO (09:25)
[2023-01-10] MEDS: Clopidogrel 75 MG TAB PO (09:25)
[2023-01-10] MEDS: Metoprolol CR 25 MG TABCR PO (09:25)
[2023-01-10] MEDS: Cholecalciferol (Vitamin D3) 1,000 UNIT TAB 1000 UNITS PO ×2 (09:26→20:12)
[2023-01-10] MEDS: Acetaminophen 325 MG TAB PO ×2 (09:26→18:34)
[2023-01-10] MEDS: Acetylcysteine 600 MG CAP PO ×2 (09:27→20:12)
[2023-01-10] MEDS: Pantoprazole 20 MG TABCR PO (09:28)
[2023-01-10] MEDS: Cyclobenzaprine 10 MG TAB PO ×2 (09:28→18:35)
[2023-01-10] MEDS: Magnesium Oxide 400 MG TAB PO (09:28)
[2023-01-10] MEDS: Citalopram 20 MG TAB 40 MG PO (09:29)
[2023-01-10] MEDS: Normal Saline Flush 10 ML SYR IVP (09:30)
[2023-01-10] MEDS: Gabapentin 300 MG CAP PO ×3 (09:30→20:12)
[2023-01-10] MEDS: guaiFENesin 600 MG TABCR PO ×2 (09:30→20:12)
[2023-01-10] MEDS: Nystatin POWDER 60 GM JAR TP ×3 (09:30→20:13)
[2023-01-10] MEDS: Insulin Aspart 300 UNITS/3 ML PEN SC (11:33)
--- NOTE | 2023-01-10 11:47 | INPN_ITS ---
PT Notes Visit Reasons: Cerebrovascular accident Physical Therapy Inpatient Progress Note Date: 01/01/2023 Date of Service: 01/01/2023 through 01/10/2023 Referring Doctor: Selvin Pearson MD PT Orders: PT CONSULT: Fall Safety Assessment Precautions: Remains on back precautions--No bending, lifting, or twisting. Subjective: Feels comfortable while sitting on bedisde chair. States that his back still is not 100% comfortable, reports minimal pain present. Hopeful about being able to go home soon, either today or tomorrow. Feels safe about using FWW inside room on his own. Okay with PT/OT for continued PT. Objective:? General Observation: Sitting on bedside chair. Nurse Torrie putting telemetry monitoring back in place. Mental Status: Alertand oriented as to person, place, and time. Able to follow double-step commands/instrcutions. Pain: Miinimal pain in low back that is being managed Vital Signs: Closely monitored via tele. ROM: Right Upper Extremity: ? Shoulder Flexion WFL. Shoulder abduction WFL. Elbow flexion WFL. Wrist flexion WFL. Functional opening and closing of hand WFL. Left Upper Extremity:? Shoulder Flexion WFL. Shoulder abduction WFL. Elbow flexion WFL. Wrist flexion WFL. Functional opening and closing of hand WFL. Right Lower Extremity: Hip flexion WFL. Hip abduction WFL. Knee flexion WFL. Ankle dorsiflexion WFL. Ankle plantarflexion WFL. Left Lower Extremity: Hip flexion WFL. Hip abduction WFL. Knee flexion WFL. Ankle dorsiflexion WFL. Ankle plantarflexion WFL. Strength: Right Upper Extremity: Shoulder flexors 44/5. Shoulder abductors 4/5. Elbow flexors 4/5. Elbow extensors 4/5. Wet Mix Operator strong. Left Upper Extremity: Shoulder flexors 44/5. Shoulder abductors 4/5. Elbow flexors 4/5. Elbow extensors 4/5. Wet Mix Operator strong. Right Lower Extremity: Hip flexors 4/5. Hip abductors 4/5. Knee flexors 4/5. Knee extensors 4/5. Ankle dorsiflexors 4/5. Ankle plantarflexors 4/5. Left Lower Extremity: Hip flexors 4/5. Hip abductors 4/5. Knee flexors 4/5. Knee extensors 4/5. Ankle dorsiflexors 4/5. Ankle plantarflexors 4/5. Sensation: Intact as to pain and light pressure in B LE Bed mobility/Transfers: Rolling? independent Supine to sit independent Sit to stand independent with FWW Stand to sit? independent with FWW Bed to commode independent with FWW Commode to bedside chair?independent with FWW ? GAIT? Assistive Device: Front-wheeled walker? Weight bearing: FWB Assist: Minimal asssit ? Distance:? ? Up to 600 feet ? Deviation: Mary improved. Gait no longer antalgic. ? Balance:? Static Sitting: Good Dynamic Sitting:? Good Static Standing: Fair Dynamic Standing:?Fair Special Tests: Mobility Limitations Standardized Measure [facility] AM-PAC 6 clicks Basic Mobility Inpatient Short Form: Raw Score: 24? CMS Score: 0%? ? Informed Consent/Education:? Patient was instructed in purpose of PT consult and plan of care. Agreeable to proceed with established PT POC to achieve personal goals. NEURO: 4-stage balance Test: Able to maintain feet together and semi-tandem stance for 10 seconds but is unable to do so with full tandem and one-legged stance indincating high fall risk without use of FWW. Romberg Test: Negative Rapid alternating movement: Intact Pronator Drift: Negative in B UE THERA EX: Instrcuced patient with HEP performance and provided illustrated HEP using [employer] program as follows: Access Code: [email or web address] URL: [email or web address] Date: 01/10/2023 Prepared by: Nona Sanders Exercises - Seated March with Resistance - 1 x daily - 7 x weekly - 1 sets - 10 reps - 5 hold - Seated Hip Abduction with Resistance - 1 x daily - 7 x weekly - 1 sets - 10 reps - 5 hold - Seated Knee Flexion with Anchored Resistance - 1 x daily - 7 x weekly - 1 sets - 10 reps - 5 hold - Standing Heel Raise - 1 x daily - 7 x weekly - 3 sets - 10 reps - Mini Squat with Counter Support - 1 x daily - 7 x weekly - 1 sets - 10 reps - 5 hold - Standing Hip Abduction - 1 x daily - 7 x weekly - 1 sets - 10 reps - 5 hold - Standing Hip Extension with Counter Support - 1 x daily - 7 x weekly - 1 sets - 10 reps - 5 hold Assessment:?? Now modified independent on level surface ambulation on the [place] hallway using FWW. Able to perform HEP with guidance of written/illustrated HEP. ? Patient presents with clinical signs and symptoms consistent with current/ admitting diagnoses that have resulted to mobility limitations, gait instability, generalized weakness, and overall ADL decline as demonstrated by the following impairment level findings: 1.? Decreased strength to B LE major muscle groups 2.? Impaired standing balance Impairments are contributing to the following functional limitations: 1.? Difficulty with ambulation without assistive device 2.? Increased completion time for mobility ADL performance 3.? Increased risk for falls Patient is assessed as a 65658 low complexity based on the following: History: 82-year-old male with past medical history as indicated above Examination: As above Presentation: Evolving Decision Makin low complexity Plan of Care/Treatment Plan: 1-2x/day, 7 days/week x 1 week. Plan of care has been reviewed with the CASHIER ASSISTANT providing the service under Physical Therapy direction. Initiate Physical Therapy intervention for pain management as needed, strengthening, bed mobility, transfers, gait, stairs, balance training, and use of assistive device. Goals: Goals X1 week 1. Supine-Sit independent MET 2. Sit-Supine independent MET 3. Sit-Stand independent MET 4. Stand-Sit independent MET 5. Bed-Chair independent MET 6. Chair-Bed independent MET 7. Independent gait on level surface with use of least restrictive device for at least 300 feet without report of pain nor dyspnea MET 8. Independent stair negotiation while holding onto bilateral rails for at least 10 steps without report of pain nor dyspnea MET 9. Independent with home exercise program NOT MET, CONTINUE 10. Good static and dynamic standing balance/tolerance NOT MET, CONTINUE DISCHARGE RECOMMENDATIONS: [] ? Home with no services [] [X] ? Home with services. Patient will benefit from home health PT services in order to progress mobility level using least restrictive assistive ambulatory device, assess home safety, identify additional equipment needs, and establish a functional maintenance program that will increase ability of patient to remain at home. [] ? Home with outpatient PT [] [] ? SNF for continued rehabilitation [] ? Failure Analysis Engineer Care [] [] ? SNF versus LTC based on ability to participate and progress [] TREATMENT CODE/TIME:? 69941 x 26 minutes beginning at 11:24 AM. Thank you for the opportunity to participate in the care of this patient. Nona Sanders PT, DPT, CLT [facility] [place], [place]
--- NOTE | 2023-01-10 12:46 | CMPROGNOTE_ITS ---
Date of service: 01/10/23 Time of Service: 12:46 Care Management Progress Note Progress Note Text Progress Note Text: S/O: Daniel was visiting with his when CM met with him. He is awake, sitting in his chair and easily engages in conversation. He is eager to discharge home. Home IV ABX referrals is submitted to [facility]. Weekly cost is $146, which is accepted by patient and family. CM also reviewed with patients DONTE, Colette Holloway who is a nurse and plans to be very involved with his home infusions. CM notified Marcelo at [facility] of anticipated discharge in 1-2 days. PICC info and orders are faxed to . 1630: [facility] [place] needs to reauthorize medication through [facility]. A: 82 year old male admitted to [facility] on 12/31/22 for CVA. P: Anticipate, Daniel will discharge home with home IV ABX and [facility] RN/PT. He will follow up with outpatient providers and his discharge plan of care as instructed. CM will follow.
--- NOTE | 2023-01-10 17:30 | PGE_ITS ---
Date of Service Date of service: 01/10/23 Time of Service: 17:30 Assessment and Plan Assessment and plan (1) Occipital cerebral infarction: Status: Acute Assessment and plan: subacute right occipital CVA, per CT and MRI. Evaluated by neurology. Continue aspirin, plavix, statin. [facility] ID: septic embolism could not be ruled out given VRE in blood on 12/25/22. TTE does not show obvious vegetations, but he would benefit from a MICHELLE and transfer to [facility] for further evaluation by ID, neuro, and spine. No beds are available again today, 01/07. ID consulted; Now OK with forgoing MICHELLE since improving and cultures negative. Continue IV ampicillin. Considered linezolid but incompatible with his citalopram. PT Now cleared to ambulate independently. 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 Continue tylenol, neurontin, prn hydrocodone. He states much improvement in back pain and ability to ambulate since laminectomy. (3) S/P laminectomy: Status: Acute Assessment and plan: [facility] ortho again stated on 01/04/23 that there is no evidence of infection in the spine. Blood culture that was positive on this admission (micrococcus) is likely a contaminant, but the VRE on last admission is concerning. ID felt that spinal infection cannot be ruled out and that the patient would benefit from transfer to [facility] for further workup including a MICHELLE. No bed has been available at [facility] and ID now OK with forgoing MICHELLE. WBC count normalized and CRP improved (23.25 >>>1.98). Abx changed to ampicillin IV, as above (4) Fever: Status: Resolved Assessment and plan: On last admission. Afebrile on this admission. Switched to ampicillin, as above for VRE on last admission. Positive blood culture on this admission (micrococcus) is a contaminant. D/C doxycycline; tick borne panel neg. CRP has markedly improved on this admission. (5) Positive blood culture: Status: Acute Assessment and plan: as above Second cultures negative drawn on 01/02/23. Will need 5 weeks outpt antibiotics. 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 (8) Urinary retention: Status: Acute Assessment and plan: On last admission. continue rodriguez (9) Chronic obstructive pulmonary disease (COPD): Status: Chronic Assessment and plan: continue home inhalers Stable. Qualifiers: COPD type: unspecified COPD Qualified Code(s): J44.9 - Chronic obstructive pulmonary disease, unspecified (10) DVT prophylaxis: Status: Acute Assessment and plan: Sc enoxaparin (11) Discharge planning issues: Status: Acute Assessment and plan: DNR/DNI Home tomorrow or the following day; when antibiotic for home infusion ready. Home with HH. Subjective Subjective Patient reports: no new complaints, tolerating a regular diet and bowel moveme nt; denies shortness of breath Interval history since last seen: Disappointed that he won't be discharged home until Tue when HH will have the pump required for administrating his IV Ampicillin. Exam Narrative Exam Narrative: General: Sitting in recliner. present. Pleasant, cooperative and conversant. HEENT: sclera clear, MMM. Heart: RRR, no murmur. Lungs: CTAB Extremities: no edema BLEs Pscyh: A&O x 3. Affect appropriate. Objective Last Vital Signs Temp 36.6 C 01/10/23 15:38 Pulse 77 01/10/23 15:38 Resp 17 01/10/23 15:38 BP 123/68 01/10/23 15:38 Pulse Ox 96 01/10/23 15:38 Laboratory Results - last 24 hr 01/09/23 01/10/23 21:07 06:25 Sodium 137 Potassium 4.1 Chloride 101 Carbon Dioxide 25.8 Anion Gap 10.2 BUN 14 Creatinine 0.9 Est GFR (CKD-EPI 2020) 84.22 Glucose Cancelled 137 H Calcium 8.6 Total Bilirubin 0.5 AST 19 ALT 31 Alkaline Phosphatase 124 H Total Protein 6.1 L Albumin 2.7 L Time Spent with Patient Time Spent with Patient: <25 minutes Time was spent: preparing to see the patient(eg.review tests), obtaining and/or reviewing separately otained hiistory, referring, communicating with other health pet caretaker and counseling the patient
--- NOTE | 2023-01-10 17:40 | WOUNDCONS ---
- If Service Date Differs Date of service: 01/10/23 Time of Service: 16:30 Wound Initial Evaluation Narrative: This is an 82 male who had a back fusion on 12/22/22. He was initially discharged home from [facility] but then was admitted to [facility] with fever and weakness on 12/25-12/29. He had one bottle of blood cultures that showed VRE but was thought to be a contaminant. He was transferred to a Shelter. Within a couple of days returned to the ED for confusion and increased weakness. Found to be positive for a right occipital infarct. Was readmitted on 12/31. During all the hospitalizations and the nursing facility, he developed two open areas, one over the coccyx and one over the left ischial tuberosity. Possibly caused by shearing from being in bed for prolonged periods of time. Pt history: Occipital cerebral infarction (Acute) CVA (cerebral vascular accident) (Chronic) Urinary retention (Acute) Positive blood culture (Acute) S/P laminectomy (Acute) Constipation (Acute) Fever (Acute) Fever postop (Acute) Weakness (Acute) Degenerative spondylolisthesis (Acute) 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) Most recent MRI 08/25/2022 showing stenosis; Spine consult 11/01/2022 Degenerative joint disease (DJD) of lumbar spine (Acute) Effusion, right knee (Acute) Arthritis of right glenohumeral joint (Acute) Degenerative joint disease of right knee (Acute) Depo-Medrol injection: 05/07/2022 Bronchiectasis (Acute) Adrenal nodule (Acute) Rib pain on left side (Acute) Trochanteric bursitis of both hips (Chronic) Non-alcoholic fatty liver disease (Chronic 09/29/12) Type 2 diabetes mellitus (Chronic) Dx: 10/2018 Obesity (BMI 30-39.9) (Chronic) Advance directive in chart (Chronic 04/22/15) On-file with [facility] as of 04/22/2015 Sensorineural hearing loss, bilateral (Chronic 08/29/17) Osteoarthritis of knee (Chronic 08/13/13) Hypomagnesemia (Chronic 10/07/17) Hyperlipidemia, unspecified (Chronic 07/09/11) LDL GOAL 100 Gastroesophageal reflux disease (Chronic 07/09/11) Essential tremor (Chronic 07/27/11) Essential hypertension (Chronic 07/09/11) GOAL <130/80 Depression (Chronic 06/04/14) Long-term Celexa Rx Chronic obstructive pulmonary disease (COPD) (Chronic 09/29/12) MILD, 08/2012 PFTs FEV1 2.06 (70% pred and FVC), no response to bronchodilator; 11/17/15 bronchoscopy [facility]: NEG for Af[employer], fungus, & bacteria; cytology NEG for malignancy Cardiomyopathy (Chronic 04/10/12) BPH (benign prostatic hyperplasia) (Chronic 04/10/12) ASCVD (arteriosclerotic cardiovascular disease) (Chronic) S/p 5 vessel CABG 1995 Echo 09/27/2014 with normal LVEF Medical History Cataract 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 Body Four View: 1 - left ischial tuberosity 2 - coccyx - Wound left ischial tuberosity Wound Type: Other (shear injury) Wound General Appearance: Open to air, Clean/Dry, Unapproximated, Other (yellow slough) Wound Bed Greatest Portion: Yellow (Slough) Wound Bed Lesser Portion: Red (Granulation) Wound Surrounding Tissue Appearance: [place] Percent of Wound Bed Granulated/Red: 10 Percent of Wound Bed Slough/Yellow: 90 Percent of Wound Bed Eschar/Black: 0 Wound Length: 0.63 in (1.6cm) Wound Width: 0.55 in (1.4cm) Wound Depth: 0.04 in (0.1cm) Wound Drainage Amount: None Wound Drainage Odor: None/Absent Wound Drainage Description: No drainage Wound Topical Solution/Irrigant: Other (Anasept cleanser) Wound Debridement Method: Gauze Wound Debridement Result: Yellow Sloughing Remains Wound Debridement Amount of Tissue Removed: None coccyx Wound Type: Partial Thickness, Other (shear injury) Wound General Appearance: Open to air, Clean/Dry, Unapproximated, Other (yellow slough) Wound Bed Greatest Portion: Yellow (Slough) Wound Bed Lesser Portion: Pale [place] Wound Surrounding Tissue Appearance: [place], Macerated Percent of Wound Bed Granulated/Red: 0 Percent of Wound Bed Slough/Yellow: 100 Percent of Wound Bed Eschar/Black: 0 Wound Length: 0.59 in (1.5cm) Wound Width: 0.24 in (0.6cm) Wound Depth: 0.04 in (0.1cm) Wound Drainage Amount: None Wound Drainage Odor: None/Absent Wound Drainage Description: No drainage Wound Topical Solution/Irrigant: Other (Anasept cleanser) Wound Debridement Method: Gauze Wound Debridement Result: Yellow Sloughing Remains Wound Debridement Amount of Tissue Removed: None - Pain Pain Level: 4 Pain Scale Used: Adult Pain Description: Burning, Dull, Achy Pain Duration/Frequency: Intermittent Pt has two areas that appear to be from shearing. No drainage from either site. Due to location, it would be very difficult to keep a dressing clean and intact. The area over the coccyx appears macerated with white tissue surrounding the area. Both wounds with yellow slough. Applied Triad Coloplast to both areas to protect the areas from stool or other body fluids from contaminating the areas. - Photo Photo: - Treatment/Dressing Change Topicals/Ointments: Other (Triad Coloplast) Cleanse With: Anasept Dressing Types: Other (Triad Coloplast) - Nutrition Education Reviewed Nutrition Education: Yes Note: Discussed keeping his blood sugars under good controlled and to increase protein for wound healing. - Recomendation Recomendation:: Coccyx and left ischial tuberosity 1. Clean area with Anasept cleanser and allow to dwell for 2 minutes. 2. Pat area dry. 3. Apply nickel thickness of Triad Coloplast to area, leave uncovered. Encourage pt to change position frequently. When seated, pt instructed to get up every 30-60 minutes to walk around the room. Encouraged to lie on his sides while in bed and to change position frequently. Pt's has ordered a ROHO cushion for pt's chair as recommended. Physcian/Nurse Practioner Notified: Yes (Dr. Regalado) Referrals: Dietary Treatment Time - Time Total Time Spent with Patient: 50 minutes - Patient Will be Seen Weekly Treatment: bid - For: For:: 2 weeks
[2023-01-10] MEDS: HYDROmorphone 2 MG TAB PO (20:11)
[2023-01-10] MEDS: Atorvastatin 40 MG TAB 80 MG PO (20:12)
[2023-01-10] MEDS: Primidone 50 MG TAB 150 MG PO (20:12)
[2023-01-10] MEDS: Clotrimazole 1% 15 GM TUBE TP (20:13)
[2023-01-11] VITALS (11 sets, daily range): BP systolic 106–138; BP diastolic 68–82; PULSE 72–86; RESP 15–18; TEMP 35.9–37; O2SAT 94–96
[2023-01-11] MEDS: AMPICILLIN SODIUM 2 GM in Normal Saline 100 ML IVPB ×6 (00:54→20:01)
[2023-01-11] MEDS: HYDROmorphone 2 MG TAB PO ×2 (01:49→16:43)
[2023-01-11] MEDS: Polyethylene Glycol 3350 17 GM PACKET PO (07:38)
[2023-01-11] MEDS: Citalopram 20 MG TAB 40 MG PO (07:39)
[2023-01-11] MEDS: Clopidogrel 75 MG TAB PO (07:39)
[2023-01-11] MEDS: Gabapentin 300 MG CAP PO ×3 (07:39→20:00)
[2023-01-11] MEDS: Metoprolol CR 25 MG TABCR PO (07:39)
[2023-01-11] MEDS: Enoxaparin 40 MG/0.4 ML SYR SC (07:39)
[2023-01-11] MEDS: Magnesium Oxide 400 MG TAB PO (07:40)
[2023-01-11] MEDS: Aspirin E.C. 81 MG TABEC PO (07:40)
[2023-01-11] MEDS: Pantoprazole 20 MG TABCR PO (07:40)
[2023-01-11] MEDS: Cholecalciferol (Vitamin D3) 1,000 UNIT TAB 1000 UNITS PO ×2 (07:40→20:00)
[2023-01-11] MEDS: Cyclobenzaprine 10 MG TAB PO ×2 (07:40→15:14)
[2023-01-11] MEDS: guaiFENesin 600 MG TABCR PO ×2 (07:40→20:00)
[2023-01-11] MEDS: Acetaminophen 325 MG TAB PO ×2 (07:41→15:16)
[2023-01-11] MEDS: Acetylcysteine 600 MG CAP PO ×2 (07:41→20:00)
[2023-01-11] MEDS: Nystatin POWDER 60 GM JAR TP ×3 (07:42→20:01)
[2023-01-11] MEDS: Clotrimazole 1% 15 GM TUBE TP ×2 (07:42→20:00)
[2023-01-11] MEDS: Umeclidinium 7 CAP INHALER IH (08:15)
[2023-01-11] MEDS: Budesonide/Formoterol 80/4.5 6.9 GM 60 PUFF INH IH ×2 (08:15→19:16)
[2023-01-11] MEDS: Normal Saline 500 ML 30 ML IV (11:45)
[2023-01-11] MEDS: Insulin Aspart 300 UNITS/3 ML PEN SC ×3 (11:46→21:29)
[2023-01-11] MEDS: Normal Saline Flush 10 ML SYR IVP ×2 (11:46→20:01)
--- NOTE | 2023-01-11 13:04 | CMPROGNOTE_ITS ---
Date of service: 01/11/23 Time of Service: 13:04 Care Management Progress Note Progress Note Text Progress Note Text: S/O: Daniel remains at [facility] on IV ABX, while awaiting for coordination of home IV ABX through [facility]. Per [facility], a prior Auth is required by his insurance for IV Ampicillin. CM submitted clinical documentation to Cover My Meds, and will send a letter of medical necessity once completed by MD. Prior Auth may take 1-3 days per [facility]. Anticipate discharge delay of 2-3 days. Update and delay is communicated with Colette Holloway at patients request. A: 82 year old male admitted to [facility] on 12/31/22 for CVA. P: Anticipate, Daniel will discharge home with home IV ABX and New [facility] RN/PT. He will follow up with outpatient providers and his discharge plan of care as instructed. CM will follow.
--- NOTE | 2023-01-11 13:48 | PT.INTREAT ---
Date of service: 01/11/23 Time of Service: 13:08 PT Notes Visit Reasons: Cerebrovascular accident Inpatient Physical Therapy Treatment Note [facility] Date: 01/11/23 PRECAUTIONS: Fall, standard, activity as tolerated, spine precautions (no lifting, bending, twisting) SUBJECTIVE: Patient sitting up in chair, agreeable to therapy. Expresses desire to go home, frustration that the discharge plan keeps changing. OBJECTIVE: PAIN: None reported initially, HEP review limited by discomfort which resolves when patient sits. BED MOBILITY/TRANSFERS Sit-stand: independent Stand-sit: independent Bed-Chair: independent Chair-bed: independent GAIT Assistive Device: front wheeled walker Weight bearing: full Assist: none Distance: 325 feet Deviation: reduced sandi NEURO: Static and dynamic standing balance challenges including feet together eyes open for 30 seconds static, then same against perturbations applied at shoulder level by therapist, tandem stance with right foot forward for 30 seconds, left foot forward for 26 seconds. Around the clocks with taps every hour 1-6-1 right leg, 11-6-11 left leg x2 to challenge dynamic feed forward balance. THEREX: Reviewed HEP established yesterday by Nona Sanders. Patient indicates good understanding of exercises. ASSESSMENT: Patient tolerates therapy well, is resting in recliner at end of session. PLAN: Continue balance training per plan of care until patient is ready for discharge. TREATMENT CODE/TIME: [id number] Neuro 20 minutes beginning at 13:08
--- NOTE | 2023-01-11 14:30 | CHAPLAIN ---
Adolfo was visiting with his when I stopped in. They are both very pleasant and easily engaged in a conversation. Adolfo is waiting to hear if his medications will be covered by his insurance. Adolfo is a member of [facility] [place]. He has been visited by Fr. Reid, and Deacon Roberto Carlos Wagner.
--- NOTE | 2023-01-11 16:00 | PGE_ITS ---
Date of Service Date of service: 01/11/23 Time of Service: 16:00 Assessment and Plan Assessment and plan (1) Occipital cerebral infarction: Status: Acute Assessment and plan: subacute right occipital CVA, per CT and right occipital as well as left inferior temporal CVA seen on MRI CTA of head and neck: patient bilateral carotid arteries w/ mild plaque and no hemodynamic stenosis; dominant left vertebral and thin right vertebral which only opacifies to C2 level (may be congenital vs occluded at this level) Evaluated by neurology, Dr. Lewis on 01/03 who recommended 30 day event recorder upon discharge, DAPT (ASA 81 mg + Plavix 75 mg) x 30 days then ASA 81 mg daily thereafter (she indicated that he was not a failure of aspirin as he had been off ASA prior to presentation), continue atorvastatin, follow up in Neuro clinic in 6 to 8 weeks [facility] ID: septic embolism could not be ruled out given VRE in blood on 12/25/22. TTE does not show obvious vegetations, but he would benefit from a MICHELLE and transfer to [facility] for further evaluation by ID, neuro, and spine. No beds were available repeatedly during this admission and upon re-consult w/ID ID consulted; Now OK with forgoing MICHELLE since improving and cultures negative. Continue IV ampicillin 2 gm iv q4hr, Considered linezolid but incompatible with his citalopram. PT Now cleared to ambulate independently. 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 Continue tylenol, neurontin, prn hydrocodone, add prn voltaren gel He states much improvement in back pain and ability to ambulate since laminectomy. (3) S/P laminectomy: Status: Acute Assessment and plan: [facility] ortho again stated on 01/04/23 that there is no evidence of infection in the spine. Blood culture that was positive on this admission (micrococcus) is likely a contaminant, but the VRE on last admission is concerning. ID felt that spinal infection cannot be ruled out and that the patient would benefit from transfer to [facility] for further workup including a MICHELLE. No bed has been available at [facility] and ID now OK with forgoing MICHELLE. WBC count normalized and CRP improved (23.25 >>>1.98). Abx changed to ampicillin IV, as above (4) Fever: Status: Resolved Assessment and plan: On last admission. Afebrile on this admission. Switched to ampicillin, as above for VRE on last admission. Positive blood culture on this admission (micrococcus) is a contaminant. D/C doxycycline; tick borne panel neg. CRP has markedly improved on this admission. (5) Positive blood culture: Status: Acute Assessment and plan: as above Second cultures negative drawn on 01/02/23. Will need 5 more weeks outpt antibiotics. 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 At present no beds have been available for transfer to [facility] and ID has indicated that MICHELLE probably is not needed at this time as we are treating him for [address] and he is already improving and his bacteremia has cleared. Unfortunately his insurance is balking at approving home ampicillin 2 gm iv q4h. their formulary calls for ampicillin 1 gm injection, or Unasyn 1.5 gm or 3 gm injections or use of nafcillin or oxacillin. Nafcillin and oxacillin would not be acceptable for VRE endocarditis or VRE septic emboli. Also Unasyn which contains ampicillin would not be given at the same frequency as ampicillin alone. I will call their durable medical equipment repairer tomorrow and discuss their rationale for refusing coverage. 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 (9) Urinary retention: Status: Acute Assessment and plan: On last admission. continue rodriguez (10) Chronic obstructive pulmonary disease (COPD): Status: Chronic Assessment and plan: continue home inhalers Stable. Qualifiers: COPD type: unspecified COPD Qualified Code(s): J44.9 - Chronic obstructive pulmonary disease, unspecified (11) DVT prophylaxis: Status: Acute Assessment and plan: Sc enoxaparin (12) Discharge planning issues: Status: Acute Assessment and plan: DNR/DNI Home when antibiotic for home infusion is approved, otherwise will continue hospitalization until approval. Home with HH. Subjective Subjective Interval history since last seen: Adolfo states that he is doing well in P.T., he is looking forward to returning home. His dc his being held up d/t insurance wanting prior authorization for coverage of his home infusion of ampicillin for treatment of his VRE bacteremia. He is having some increased lower back pain this afternoon. He says that it was not bothering him for P.T. earlier. Exam Narrative Exam Narrative: Adolfo is sitting up in his chair, alert and oriented Lungs: clear Heart: regular, no murmur or rub or gallop Abdomen: soft, nontender Back: no point tenderness over thoracic or lumbar spine, no erythema or induration Objective Last Vital Signs Temp 36.4 C L 01/11/23 15:10 Pulse 85 01/11/23 15:10 Resp 17 01/11/23 15:10 BP 106/70 01/11/23 15:10 Pulse Ox 96 01/11/23 15:10 Time Spent with Patient Time Spent with Patient: 25-34 minutes Time was spent: preparing to see the patient(eg.review tests), ordering medications,tests, procedures, referring, communicating with other health child day care provider, indepentently interpreting results, counseling the patient and care coordination
[2023-01-11] MEDS: Diclofenac 1% Gel 100 GM TUBE TP (20:00)
[2023-01-11] MEDS: Atorvastatin 40 MG TAB 80 MG PO (20:00)
[2023-01-11] MEDS: Primidone 50 MG TAB 150 MG PO (21:28)
[2023-01-12] VITALS (7 sets, daily range): BP systolic 127–159; BP diastolic 65–89; PULSE 75–95; RESP 15–20; TEMP 36.4–36.8; O2SAT 95–99
[2023-01-12] MEDS: AMPICILLIN SODIUM 2 GM in Normal Saline 100 ML IVPB ×6 (00:50→20:11)
[2023-01-12 06:57] LABS: Platelet Count 319 10^3/uL (130-400)
[2023-01-12] MEDS: Umeclidinium 7 CAP INHALER IH (07:25)
[2023-01-12] MEDS: Budesonide/Formoterol 80/4.5 6.9 GM 60 PUFF INH IH ×2 (07:25→19:32)
[2023-01-12] MEDS: Polyethylene Glycol 3350 17 GM PACKET PO (08:47)
[2023-01-12] MEDS: Enoxaparin 40 MG/0.4 ML SYR SC (08:47)
[2023-01-12] MEDS: Citalopram 20 MG TAB 40 MG PO (08:48)
[2023-01-12] MEDS: Clopidogrel 75 MG TAB PO (08:48)
[2023-01-12] MEDS: Magnesium Oxide 400 MG TAB PO (08:48)
[2023-01-12] MEDS: Cyclobenzaprine 10 MG TAB PO (08:49)
[2023-01-12] MEDS: Aspirin E.C. 81 MG TABEC PO (08:49)
[2023-01-12] MEDS: Cholecalciferol (Vitamin D3) 1,000 UNIT TAB 1000 UNITS PO ×2 (08:49→20:11)
[2023-01-12] MEDS: Metoprolol CR 25 MG TABCR PO (08:49)
[2023-01-12] MEDS: guaiFENesin 600 MG TABCR PO ×2 (08:49→20:11)
[2023-01-12] MEDS: Pantoprazole 20 MG TABCR PO (08:49)
[2023-01-12] MEDS: Acetylcysteine 600 MG CAP PO ×2 (08:49→20:11)
[2023-01-12] MEDS: Acetaminophen 325 MG TAB PO (08:50)
[2023-01-12] MEDS: Gabapentin 300 MG CAP PO ×3 (08:50→20:11)
[2023-01-12] MEDS: Clotrimazole 1% 15 GM TUBE TP ×2 (08:52→20:39)
[2023-01-12] MEDS: Nystatin POWDER 60 GM JAR TP ×3 (08:53→20:10)
[2023-01-12] MEDS: Normal Saline Flush 10 ML SYR IVP ×3 (08:59→20:11)
[2023-01-12] MEDS: Diclofenac 1% Gel 100 GM TUBE TP ×4 (08:59→20:10)
[2023-01-12] MEDS: Insulin Aspart 300 UNITS/3 ML PEN SC ×3 (09:00→22:54)
--- NOTE | 2023-01-12 13:16 | CMPROGNOTE_ITS ---
Date of service: 01/12/23 Time of Service: 13:16 Care Management Progress Note Progress Note Text Progress Note Text: S/O: Daniel remains at [facility] on IV ABX, while awaiting for coordination of home IV ABX through [facility]. His visited today and the two walked the hallway together. He remains eager to discharge home. Dr. Pearson, updated IV Ampicillin order using formulary provided by [facility] because the PA for IV Ampicillin 2gm, was not approved. Updated order is faxed to [facility] and [facility]. CM spoke to [facility] and [facility] by phone. Anticipate discharge delay of 1-2 days. Update and delay is communicated with Colette Holloway at patients request. 1400: CM received confirmation from [facility] that IV medication and DME will be delivered to [facility] tomorrow by [address] [facility] RN is coordinated, and plan to arrive at Daniel's home to start their intake around 1pm. Patients DONTE Alvarenga is a nurse and she is planning on supporting his home IV infusions and daily cartridge changes. CM reviewed with Hospitalist, [facility] and Colette and will continue to support discharge process. A: 82 year old male admitted to [facility] on 12/31/22 for CVA. P: Anticipate, Daniel will discharge home with home IV ABX and New [facility] RN/PT on 01/13/23. DME will be delivered by 12pm, [facility] RN will go out to see Daniel at 1pm. Daniel will be transported home via private vehicle with his DONTE Alvarenga. He will follow up with outpatient providers and his discharge plan of care as instructed. CM will follow.
--- NOTE | 2023-01-12 14:52 | W.PM.PROGNOT ---
Date of Service Date of service: 01/12/23 Time of Service: 14:52 Assessment and Plan Assessment and plan (1) Occipital cerebral infarction: Status: Acute Assessment and plan: subacute right occipital CVA, per CT and right occipital as well as left inferior temporal CVA seen on MRI CTA of head and neck: patient bilateral carotid arteries w/ mild plaque and no hemodynamic stenosis; dominant left vertebral and thin right vertebral which only opacifies to C2 level (may be congenital vs occluded at this level) Evaluated by neurology, Dr. Lewis on 01/03 who recommended 30 day event recorder upon discharge, DAPT (ASA 81 mg + Plavix 75 mg) x 30 days then ASA 81 mg daily thereafter (she indicated that he was not a failure of aspirin as he had been off ASA prior to presentation), continue atorvastatin, follow up in Neuro clinic in 6 to 8 weeks [facility] ID: septic embolism could not be ruled out given VRE in blood on 12/25/22. TTE does not show obvious vegetations, but he would benefit from a MICHELLE and transfer to [facility] for further evaluation by ID, neuro, and spine. No beds were available repeatedly during this admission and upon re-consult w/ID ID consulted; Now OK with forgoing MICHELLE since improving and cultures negative. Continue IV ampicillin 2 gm iv q4hr, Considered linezolid but incompatible with his citalopram. PT Likely septic emboli rather than thromboembolism. Patient will be treated for total of 6 weeks of ampicillin continuos infusion 12 gm daily. 6 weeks will be counted from his last negative blood culture which was on 01/02, although the culture of micrococcus from 12/31 was probably a contaminant so his first negative culture after his initial Enterococcus bacteremia would have been 12/28. Nevertheless we will count from 01/02, thus his end date will be February 12. Professional time spent interviewing and examining patient, discussion of goals of care with hospital team (care management, nursing and consulting professionals) was 20 minutes. (2) Chronic low back pain with bilateral sciatica: Status: Chronic Assessment and plan: low back pain has improved since his laminectomy and does not limit his walking. He does get intermittent discomfort which is helped by Tylenol or Voltaren gel. (3) S/P laminectomy: Status: Acute Assessment and plan: [facility] ortho again stated on 01/04/23 that there is no evidence of infection in the spine. Blood culture that was positive on this admission (micrococcus) is likely a contaminant, but the VRE on last admission is concerning. ID felt that spinal infection cannot be ruled out and that the patient would benefit from transfer to [facility] for further workup including a MICHELLE. No bed has been available at [facility] and ID now OK with forgoing MICHELLE. WBC count normalized and CRP improved (23.25 >>>1.98). Abx changed to ampicillin IV, as above (4) Fever: Status: Resolved Assessment and plan: On last admission. Afebrile on this admission. Switched to ampicillin, as above for VRE on last admission. Positive blood culture on this admission (micrococcus) is a contaminant. D/C doxycycline; tick borne panel neg. CRP has markedly improved on this admission. (5) Positive blood culture: Status: Acute Assessment and plan: as above Second cultures negative drawn on 01/02/23. Will need 5 more weeks outpt antibiotics. 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 At present no beds have been available for transfer to [facility] and ID has indicated that MICHELLE probably is not needed at this time as we are treating him for [address] and he is already improving and his bacteremia has cleared. Unfortunately his insurance is balking at approving home ampicillin 2 gm iv q4h. their formulary calls for ampicillin 1 gm injection, or Unasyn 1.5 gm or 3 gm injections or use of nafcillin or oxacillin. Nafcillin and oxacillin would not be acceptable for VRE endocarditis or VRE septic emboli. Also Unasyn which contains ampicillin would not be given at the same frequency as ampicillin alone. I will call their director of medical staff services tomorrow and discuss their rationale for refusing coverage. (7) Type 2 diabetes mellitus: Status: Chronic Assessment and plan: Continue SSI Qualifiers: Diabetes mellitus jail insulin use: without jail use Diabetes mellitus complication status: without complication Qualified Code(s): E11.9 - Type 2 diabetes mellitus without complications (8) Essential hypertension: Status: Chronic Assessment and plan: BB was held; permissive HTN initially; subsequently restarted. (9) Urinary retention: Status: Acute Assessment and plan: On last admission. continue rodriguez (10) Chronic obstructive pulmonary disease (COPD): Status: Chronic Assessment and plan: continue home inhalers Stable. Qualifiers: COPD type: unspecified COPD Qualified Code(s): J44.9 - Chronic obstructive pulmonary disease, unspecified (11) DVT prophylaxis: Status: Acute Assessment and plan: Sc enoxaparin (12) Discharge planning issues: Status: Acute Assessment and plan: DNR/DNI Home when antibiotic for home infusion is approved, otherwise will continue hospitalization until approval. Home with HH. Subjective Subjective Interval history since last seen: Patient feels frustrated over the problems w/ his insurance not approving his intermittent infusions of his ampicillin for home infusion. However, I spoke w/ the pharmacist at the home infusion company, it seems that his insurance will approve for continuous infusion of ampicillin 12 gm continuous infusion daily. this would be the equivalent of 2 gm IV q4h. He will be discharged after his 12 noon dose. As for his lower back pains from yesterday this seems to be improved w/ voltaren gel. I will give him an Rx for this although it is now OTC . Exam Narrative Exam Narrative: Daniel is sitting up in the chair having completed ambulation w/ his walker on his own. He denies any pain or dyspnea Lungs: clear Heart: RRR, distant heart tones, no murmur or rub Abdomen: obese, soft, nontender Legs: he has bilateral lower leg edema, right>left 1+ to 2 on right, 1 on the left Objective Last Vital Signs Temp 36.5 C 01/12/23 11:13 Pulse 90 01/12/23 11:13 Resp 20 01/12/23 11:13 BP 159/89 H 01/12/23 11:13 Pulse Ox 95 01/12/23 11:13 Laboratory Results - last 24 hr 01/12/23 06:17 Plt Count 319 Time Spent with Patient Time Spent with Patient: <25 minutes Time was spent: ordering medications,tests, procedures, referring, communicating with other health daytime caregiver, indepentently interpreting results, counseling the patient and care coordination
--- NOTE | 2023-01-12 15:29 | PT.INTREAT ---
Date of service: 01/12/23 Time of Service: 15:10 PT Notes Visit Reasons: Cerebrovascular accident Inpatient Physical Therapy Treatment Note [facility] Date: 01/12/23 PRECAUTIONS: Standard SUBJECTIVE: Patient sitting up in chair, agreeable to therapy. Reports rumor has it I'll be headed home before noon tomorrow. Is eager to get home but afraid to get his hopes up. OBJECTIVE: PAIN: None reported. BED MOBILITY/TRANSFERS Rolling L/R: independent Supine-sit: independent Sit-supine: independent Sit-stand: independent Stand-sit: independent Bed-Chair: independent Chair-bed: independent GAIT Assistive Device: front wheeled walker Weight bearing: full Assist: independent Distance: 550 feet NEURO: balance clocks x3 each side STAIRS: ascends and descends 26 stairs with bilateral hand rails and reciprocal gait pattern. ASSESSMENT: Patient tolerates therapy well. Becomes short of breath on stairs, but recovers easily during flat ground ambulation. PLAN: Continue uilding activity tolerance and balance training per plan of care until patient is ready for discharge. TREATMENT CODE/TIME: [id number] Ther ex 12 minutes beginning at 1510
--- NOTE | 2023-01-12 16:43 | NUR.NOTE ---
notifed charge nurse of pt shaking. pt states that he is having some anxiety with being lied to about his discharge process. states it might be stress/anxiety
[2023-01-12] MEDS: Atorvastatin 40 MG TAB 80 MG PO (20:11)
[2023-01-12] MEDS: Primidone 50 MG TAB 150 MG PO (22:53)
[2023-01-13] VITALS: PULSE 92
[2023-01-13] MEDS: AMPICILLIN SODIUM 2 GM in Normal Saline 100 ML IVPB ×4 (00:58→11:40)
[2023-01-13 03:11] VITALS: BP 162/77; PULSE 87; RESP 18; TEMP 37.2; O2SAT 97
[2023-01-13] MEDS: Normal Saline 500 ML 30 ML IV (04:00)
[2023-01-13 06:00] VITALS: PULSE 80
[2023-01-13 06:45] LABS: Abs Immature Grans 0.05 10^3/uL (0.0-0.06); Absolute Basophil Count 0.04 10^3/uL (0.0-0.2); Absolute Eosinophil Count 0.41 10^3/uL (0.0-0.7); Absolute Lymphocyte Count 1.19 10^3/uL (1.2-3.4); Absolute Monocyte Count 0.73 10^3/uL (0.1-0.8); Absolute Neutrophil Count 5.15 10^3/uL (1.2-6.7); Basophils % 0.5; Eosinophils % 5.4; HCT 34.1 % (40.0-50.0); HGB 11.1 g/dL (13.5-17.5); Immature Grans % 0.7; Lymphocytes % 15.7; MCH 30.4 pg (27.0-33.0); MCHC 32.6 % (32.0-36.0); MCV 93 fL (80-95); MPV 9.6 fL (8.0-11.0); Monocytes % 9.6; Neutrophils % 68.1; Platelet Count 300 10^3/uL (130-400); RBC 3.65 10^6/uL (4.36-5.78); RDW 13.3 % (11.8-14.1); RDW-SD 45.4 fL; WBC 7.57 10^3/uL (4.4-10.8)
[2023-01-13 07:07] LABS: Anion Gap 7.5 mmol/L (3-11); BUN 14 mg/dL (7-18); C-Reactive Protein 1.66 mg/dL (0.0-0.3); CO2 29.5 mmol/L (21.0-32.0); CREATININE 0.9 mg/dL (0.70-1.30); Calcium 8.6 mg/dL (8.5-10.1); Chloride 102 mmol/L (98-107); Estimated GFR 84.22 (mL/min/1.73m2); Glucose 146 mg/dL (74-106); Sodium 139 mmol/L (136-145)
[2023-01-13 07:25] VITALS: BP 155/78; PULSE 70; RESP 18; TEMP 36.5; O2SAT 97
[2023-01-13] MEDS: Normal Saline Flush 10 ML SYR IVP (07:56)
[2023-01-13] MEDS: Polyethylene Glycol 3350 17 GM PACKET PO (07:57)
[2023-01-13] MEDS: Aspirin E.C. 81 MG TABEC PO (07:59)
[2023-01-13] MEDS: Enoxaparin 40 MG/0.4 ML SYR SC (07:59)
[2023-01-13] MEDS: guaiFENesin 600 MG TABCR PO (07:59)
[2023-01-13] MEDS: Metoprolol CR 25 MG TABCR PO (07:59)
[2023-01-13] MEDS: Acetylcysteine 600 MG CAP PO (07:59)
[2023-01-13] MEDS: Citalopram 20 MG TAB 40 MG PO (07:59)
[2023-01-13] MEDS: Gabapentin 300 MG CAP PO (07:59)
[2023-01-13] MEDS: Cholecalciferol (Vitamin D3) 1,000 UNIT TAB 1000 UNITS PO (07:59)
[2023-01-13] MEDS: Clopidogrel 75 MG TAB PO (08:00)
[2023-01-13] MEDS: Magnesium Oxide 400 MG TAB PO (08:00)
[2023-01-13] MEDS: Diclofenac 1% Gel 100 GM TUBE TP ×2 (08:00→12:35)
[2023-01-13] MEDS: Pantoprazole 20 MG TABCR PO (08:00)
[2023-01-13] MEDS: Nystatin POWDER 60 GM JAR TP (08:00)
[2023-01-13] MEDS: Clotrimazole 1% 15 GM TUBE TP (08:54)
[2023-01-13] MEDS: Umeclidinium 7 CAP INHALER IH (08:57)
[2023-01-13] MEDS: Budesonide/Formoterol 80/4.5 6.9 GM 60 PUFF INH IH (08:57)
[2023-01-13 11:24] VITALS: BP 144/84; PULSE 78; RESP 18; TEMP 36; O2SAT 98
[2023-01-13] MEDS: Hydrogen Peroxide 3% 480 ML BTL TP (12:36)
--- NOTE | 2023-01-13 12:36 | W.PM.DS.N ---
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 (3) S/P laminectomy: Status: Acute (4) Fever: Status: Resolved (5) Positive blood culture: Status: Acute (6) Vancomycin resistant enterococcus culture positive: Status: Acute (7) Type 2 diabetes mellitus: Status: Chronic (8) Essential hypertension: Status: Chronic (9) Urinary retention: Status: Acute (10) Chronic obstructive pulmonary disease (COPD): Status: Chronic (11) DVT prophylaxis: Status: Acute (12) Discharge planning issues: Status: Acute Discharge Plan Disposition Patient Disposition: Home W/Home Health Services Condition: Good Discharge Details Reason For Visit: CVA Admit Date/Time: 12/31/22 20:54 Admit Provider: Selvin Pearson Attending Provider: Selvin Pearson Primary Care Provider: Sangita Rose Hospital Course Hospital Course: 82-year-old male with a history of 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 Cabrera at [facility] 12/22/2022. Subsequently discharged on 12/25/2022 and within hours present emergency department with complaints of fever weakness and work-up at [facility] included CT scan of the abdomen pelvis chest and lumbar spine. He was hospitalized from 12/25 to 12/29/2022 at [facility]. CT scan of his lumbar spine was reviewed by orthopedics at [facility] who felt that this did not represent perioperative infection and they did not feel he needed antibiotics however further work-up included blood cultures that showed 1 bottle aerobic bottle that grew bacillus species as well as Enterococcus casseliflavus. This was 1 bottle from 1 set out of a total of 4 sets or 8 bottles that were drawn on 12/25/2022. Patient was started on Zosyn in the emergency department and then subsequently put on vancomycin. White cell count declined from 13,004 on admission down to 10,004 and 50. He did improve remarkably. Infectious disease at at [facility] was contacted to discuss his optimum antibiotic regimen and they recommended repeating his blood cultures on the day of discharge and continue him on high-dose amoxicillin to 1000 mg 3 times daily for 14 days. Patient was discharged to [facility] on 12/29/2022 for resumption of his physical therapy and rehabilitation from his spine surgery. Patient then represented emergency department 1 day after discharge with symptoms of confusion, generalized weakness, chills. On admission was hemodynamically stable and afebrile and repeat CT scan noncontrast of his lumbar spine continue to show multiple air-fluid bubbles with epidural lumbar spine. [facility] Ortho was recontacted and again they felt this did not represent an infection of his surgical site. They felt this was a surgical seroma. Subsequent CT scan of his head to evaluate his acute confusion demonstrated a subacute right occipital lobe nonhemorrhagic infarct. Neurology at [facility] was contacted and recommended full dose aspirin and a follow-up CT of his neck and brain and MRI of the brain. I also recommend echocardiogram with bubble study and to continue full-strength aspirin and high-dose statins. Dr. Priscilla Lewis from neurology consult on the case on 01/03/2023. She felt that he had an ischemic right occipital stroke she reviewed his CTA of the brain and neck which demonstrated small right vertebral artery with questionable occlusion versus congenital abnormality. She recommends the patient remain on aspirin 81 mg daily and clopidogrel 75 mg daily for 30 days and then aspirin 81 mg daily thereafter. She also recommend continue high-dose atorvastatin 80 mg daily but upon discharge it was okay to titrate his atorvastatin down to a goal LDL of less than 70. She recommended physical therapy and Occupational Therapy for rehabilitation for his weakness and deconditioning from his lumbar spine surgery and recommend follow-up in neurology clinic in 6 to 8 weeks and to obtain outpatient 30-day cardiac event monitor at discharge. Patient received physical therapy throughout his hospital stay and at the time of discharge he was doing quite well independent ambulation with a front wheel walker he was able to do stairs ascending and descending 26 stairs with bilateral handrails and reciprocal gait pattern. PT recommended continue outpatient home physical therapy. With regard to his VRE bacteremia further blood cultures were obtained on admission and multiple blood cultures from 12/31/2022 and 01/02/2023 came back no growth for any Enterococcus. A single culture grew Micrococcus luteus from 12/31/2022 which was felt to be a contaminant. Follow-up cultures from 01/02/2023 showed no growth. Infectious disease was consulted via telephone through [facility] and their recommendation was to treat him for 6 weeks of IV antibiotics with ampicillin at 2 g IV every 4 hours. Cardiology at [facility] was also contacted to discuss obtaining a MICHELLE to rule out endocarditis. Attempts were made to try to transfer him to [facility] but because of lack of bed availability he was never able to be transferred down to [facility] where all the specialties could see him including ID and cardiology as well as his spine surgeon. CTA of the neck showed patent carotid arteries bilaterally with no hemodynamically significant stenosis he has a dominant left vertebral artery and is already mention his right vertebral artery was then and only opacified to the C2 level suggesting either a chronic occlusion or developmental abnormality. Brain MRI was performed and demonstrated subacute infarct in the right occipital as well as the left inferotemporal lobes. A transthoracic echocardiogram was performed showed normal LV size and function with an EF of 60% and normal RV size and function. Normal atria bilaterally. Aortic valve is sclerotic and trileaflet without stenosis or regurgitation and he has mild mitral annular calcification. We had problems with obtaining home IV infusion from his insurance company they would not approve ampicillin 2 g IV every 4 hours for 6 weeks nevertheless we were able to get approval for continuous infusion of ampicillin 12 g IV daily to be given continuously over 24. Which will be continued daily for 6 weeks. Counting the time he was in the hospital and from his last negative blood culture his end date will be February 12, 2023. At the time of discharge she was doing markedly well had no fevers he had stable vital signs and had no shortness of breath. He has some mild back pains that seem to resolve with physical activity as well as topical Voltaren gel. His sutures were removed from his back on the day of discharge. Follow-up with should be with his PCP in the next week and with Dr. Lewis in 6 weeks. Patient should make and keep follow-up with his spine surgeon as previously directed. Home Meds and New Rx's Prescriptions: New ampicillin sodium 2 gram recon soln 2 g IV Q4H 31 Days Qty: 10 0RF clopidogrel 75 mg Tablet 75 mg PO DAILY Qty: 28 0RF diclofenac sodium 1 % Gel 4 g topical QID Qty: 100 0RF Continued magnesium oxide 500 mg capsule 500 mg PO DAILY Qty: 90 3RF acetaminophen 500 mg tablet 1,000 mg PO TID PRN metoprolol succinate 25 mg tablet extended release 24 hr 25 mg PO DAILY Qty: 90 3RF acetylcysteine [NAC] 600 mg capsule 600 mg PO BID Qty: 60 7RF aspirin 81 MG tablet,delayed release (DR/EC) 81 mg PO DAILY (DME) Aerochamber Plus Flow-Vu,S Msk 1 EACH spacer 1 ea Miscellaneous PRN polyethylene glycol 3350 [GlycoLax] 527 GM powder 17 g PO DAILY (DME) lancets [OneTouch Delica Lancets] 1 EACH misc 1 ea Miscellaneous DAILY Qty: 100 Rx Instructions: E11.9 to maintain A1C less than 7.0 albuterol sulfate [ProAir HFA] 8.5 GM HFA aerosol inhaler 1 - 2 puff Inhalation Q4-6H PRN Qty: 1 3RF Rx Instructions: DISPENSE ALBUTEROL INHALER BRAND COVERED BY INSURANCE cholecalciferol (vitamin D3) 25 mcg (1,000 unit) tablet 1,000 unit PO BID fluticasone furoate-vilanterol [Breo Ellipta] 100-25 mcg/dose blister with device 1 ea Inhalation DAILY Qty: 60 12RF Rx Instructions: [facility] Incruse Ellipta 62.5 mcg/actuation blister with device 62.5 mcg Inhalation DAILY Qty: 30 12RF (DME) nebulizer and accessories See Rx Instructions .Route .MEDSUPPLY Qty: 1 0RF Rx Instructions: As directed clotrimazole [Lotrimin AF (clotrimazole)] 1 % cream 1 applic TP BID Qty: 45 3RF Rx Instructions: Apply thin film to affected area until resolution (usually 4 weeks) + 3-4 days pantoprazole 20 mg tablet,delayed release (DR/EC) 20 mg PO DAILY Qty: 90 3RF Rx Instructions: Take 20 mg daily once daily in the morning at least 30-60 minutes before first meal of the day atorvastatin 80 mg tablet 80 mg PO DAILY Qty: 90 3RF (DME) Blood Glucose Test Strip See Rx Instructions .ROUTE .MEDSUPPLY Qty: 100 3RF Rx Instructions: As directed to check daily morning fasting blood glucose. No insulin. Dispense covered brand. gabapentin 300 mg capsule 300 mg PO TID Qty: 270 0RF citalopram 40 mg tablet 40 mg PO DAILY Qty: 90 3RF albuterol sulfate 2.5 mg /3 mL (0.083 %) solution for nebulization 2.5 mg inhalation Q4H PRN (Reason: shortness of breath or wheezing) Qty: 180 3RF Trelegy Ellipta 100-62.5-25 mcg Blister With Device 1 inh INHALATION DAILY ipratropium-albuterol 0.5 mg-3 mg(2.5 mg base)/3 mL Solution For Nebulization 3 ml INHALATION PRN PRN cyclobenzaprine 10 mg tablet 10 mg PO TID PRNQty: 20 0RF hydromorphone 2 mg tablet 2 mg PO Q4H PRN PRN sennosides [senna] 8.6 mg Tablet 8.6 mg PO BID PRN primidone 50 mg tablet 50 mg PO QHS MDD 150 mg Qty: 270 3RF Discontinued celecoxib [Celebrex] 100 mg capsule 100 mg PO BID PRN (Reason: pain) Qty: 180 0RF amoxicillin 500 mg capsule 1,000 mg PO TID 14 Days Qty: 84 0RF Discharge Instructions Instructions: Endocarditis (DC), Ischemic Stroke (DC), Holter Monitor (GEN) Additional Instructions: You sustained an embolic stroke in which you had a stroke of the right occipital lobe and left inferior temporal lobe. you have been treated for a Vancomycin resisant Enterococcus (Enterococcus Casseliflavus) blood stream infection. Although you had a surface echocardiogram (ultrasound of your heart) which did not show any vegetations on your heart valves, we are treating you as if you did and the stroke may have come from septic vegetations that embolized to the brain. No abscess were seen on your brain imaging. For your stroke you should remain on high dose atorvastatin and for the next month you should remain on combination of aspirin and Plavix. These are antiplatelet drugs that work syndergistically to prevent thrombi from forming and causing a stroke. After one month, you should stop the Plavix (clopidogrel) but remain on aspirin 81 mg daily for the remainder of your life. You should stop your Celebrex and not take any oral antiinflammatory medications as they will lower the effectiveness of the Plavix and aspirin and may increase your risk of gastrointestinal bleeding. Please follow up w/ Dr. Priscilla Lewis in the next 6 weeks for follow up in the neurology clinic at [facility]. You should see your PCP in the next week. Keep your previously scheduled appointments w/ your spine surgeon at [facility]. You have been ordered a heart monitor to wear for the next 30 days to monitor for any atrial arrythmias. Stand Alone Forms: Nursing Discharge Form Referrals: Sangita Rose NP [Primary Care Provider] - 01/19/23 11:30 am Priscilla Lewis MD [ [facility] STAFF PHYSICIAN] - (follow up in 6 weeks; [phone] ) Activity:: Activity as Tolerated Equipment/Supplies:: No Equipment Needed Diet:: Carb Counting Discharge Orders Discharge Orders: Discharge Order (Routine); Ordered 01/13/23 Ordered By: Selvin Pearson Other Ambulatory Orders: Cardiac Event Recorder (Routine) Timeframe: 1 Day Facility: [facility] - Location: Respiratory Therapy Ordered By: Selvin Pearson DS: Summary Time Spent with Patient providing and/or coordinating discharge services: Greater than 30 minutes Status at Discharge Functional status at discharge: uses cane/walker Overall status at discharge: patient is progressing back to baseline Mental Status: mental status grossly normal Speech and Movement: speech and movement normal Mood: congruent mood Affect: normal affect Exam Psych Mental Status: mental status grossly normal Speech and Movement: speech and movement normal Mood: congruent mood Affect: normal affect DS: Data Vitals/I&O Vitals and I&O: Vital Signs Temperature 36 C L 01/13/23 11:24 Temperature Source Tympanic 01/13/23 11:24 Pulse 78 01/13/23 11:24 Pulse Rhythm Regular 01/13/23 03:20 Pulse 67 12/31/22 21:20 Respiratory Rate 18 01/13/23 11:24 Respiratory Effort Normal, Non-Labored 01/13/23 03:20 Respiratory Depth Normal 01/13/23 03:20 Respiratory Pattern Normal 01/13/23 03:20 Blood Pressure 144/84 H 01/13/23 11:24 Blood Pressure Mean 79 12/31/22 21:16 Blood Pressure Position Supine 12/31/22 12:58 Pulse Oximetry 98 01/13/23 11:24 Oxygen Delivery Method Room Air 01/13/23 11:24 Oxygen Flow Rate 0 01/13/23 11:24 Pain Level 0 01/13/23 11:24 Comment RN Notified 01/01/23 22:40 Intake & Output 01/12/23 01/13/23 01/13/23 23:59 11:59 23:59 Intake Total 970 / 1620 379 / 379 Output Total 1200 / 1200 Balance 970 / 120 -821 / -821 Intake: IV 320 / 620 379 / 379 Oral 650 / 1000 Output: Urine 1200 / 1200 Other: Urine Color Yellow Urine Appearance Clear Clear Urine Odor Normal Stool Size Moderate Stool Characteristics Formed Brown Voiding Methods Urinal Data Completed and Pending Labs on day of discharge: Labs from last 24 hours 01/13/23 01/13/23 06:00 06:00 WBC 7.57 RBC 3.65 L Hgb 11.1 L Hct 34.1 L MCV 93 MCH 30.4 MCHC 32.6 RDW 13.3 Plt Count 300 MPV 9.6 Immature Gran % 0.7 Neutrophils % 68.1 Lymphocytes % 15.7 Monocytes % 9.6 Eosinophils % 5.4 Basophils % 0.5 Nucleated RBC % 0.0 Absolute Neutrophils 5.15 Absolute Lymphocytes 1.19 L Absolute Monocytes 0.73 Absolute Eosinophils 0.41 Absolute Basophils 0.04 Sodium 139 Potassium 4.0 Chloride 102 Carbon Dioxide 29.5 Anion Gap 7.5 BUN 14 Creatinine 0.9 Est GFR (CKD-EPI 2020) 84.22 Glucose 146 H Calcium 8.6 C-Reactive Protein 1.66 H PFSH All Active Problems (Updated 01/11/23 @ 18:56 by Selvin Pearson MD) Vancomycin resistant enterococcus culture positive (Acute) Discharge planning issues (Acute) DVT prophylaxis (Acute) Occipital cerebral infarction (Acute) CVA (cerebral vascular accident) (Chronic) Urinary retention (Acute) Positive blood culture (Acute) S/P laminectomy (Acute) Constipation (Acute) Fever postop (Acute) Weakness (Acute) Degenerative spondylolisthesis (Acute) 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) Most recent MRI 08/25/2022 showing stenosis; Spine consult 11/01/2022 Degenerative joint disease (DJD) of lumbar spine (Acute) Effusion, right knee (Acute) Arthritis of right glenohumeral joint (Acute) Degenerative joint disease of right knee (Acute) Depo-Medrol injection: 05/07/2022 Bronchiectasis (Acute) Adrenal nodule (Acute) Rib pain on left side (Acute) Trochanteric bursitis of both hips (Chronic) Non-alcoholic fatty liver disease (Chronic 09/29/12) Type 2 diabetes mellitus (Chronic) Dx: 10/2018 Obesity (BMI 30-39.9) (Chronic) Advance directive in chart (Chronic 04/22/15) On-file with [facility] as of 04/22/2015 Sensorineural hearing loss, bilateral (Chronic 08/29/17) Osteoarthritis of knee (Chronic 08/13/13) Hypomagnesemia (Chronic 10/07/17) Hyperlipidemia, unspecified (Chronic 07/09/11) LDL GOAL 100 Gastroesophageal reflux disease (Chronic 07/09/11) Essential tremor (Chronic 07/27/11) Essential hypertension (Chronic 07/09/11) GOAL <130/80 Depression (Chronic 06/04/14) Long-term Celexa Rx Chronic obstructive pulmonary disease (COPD) (Chronic 09/29/12) MILD, 08/2012 PFTs FEV1 2.06 (70% pred and FVC), no response to bronchodilator; 11/17/15 bronchoscopy [facility]: NEG for Af[employer], fungus, & bacteria; cytology NEG for malignancy Cardiomyopathy (Chronic 04/10/12) BPH (benign prostatic hyperplasia) (Chronic 04/10/12) ASCVD (arteriosclerotic cardiovascular disease) (Chronic) S/p 5 vessel CABG 1995 Echo 09/27/2014 with normal LVEF Medical History Cataract 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 Essential tremor Heart disease Hypertension Sister Hypertensive disorder, systemic arterial Heart disease Brother , [place] at age 78. Heart disease Essential tremor Brother Heart disease Daughter Essential tremor Social History Smoking/Tobacco Use Status: Former Tobacco Use Tobacco: How many years used: 30 Smoking risk assessment performed?: Yes Alcohol Intake: never Drug use: Never Substance use type: does not use Adopted: No Caregiver/Support person: No Foster care: No Household members: spouse Housing: house Number of Children: 7 number of grandchildren: 25 Communication Needs: Hard of Hearing Education Level: high school Do you need help understanding health information?: Rarely current occupation: Retired [employer] Pets and animals: Yes Pets and animals: dog(s) Sexually active: No Do you think of yourself as: straight/heterosexual Current gender identity: male What is your relationship status?: How often do you talk on the phone with friends or family?: three or more times per week How often do you get together with friends or relatives?: once per week Do you belong to any clubs or organized social groups?: yes Panel score (0-1 are the most socially isolated patients): 3 What type of physical activity do you participate in: walking and other Details: House work Duration: 15-30 minutes/day Frequency: 5-6 times per week Lindy/Tenriism: Nondenominational Seatbelt use: always Drive intox or ride w/intox wheelchair driver: No Water heater temp set <120 deg: Yes Working smoke detector in home: Yes Fire extinguisher in home: Yes Carbon monox detector in home: Yes Do you feel safe at home: Yes Do you feel safe in your relationship?: Yes Additional Social history: He has 5 step-children in addition to 3 biological. Time Spent with Patient Time Spent with Patient: <45 minutes Time was spent: ordering medications,tests, procedures, referring, communicating with other health home care chaplain, indepentently interpreting results, counseling the patient and care coordination
--- NOTE | 2023-01-13 12:50 | PDOC.CMDIS ---
Date of service: 01/13/23 Time of Service: 12:50 LACE Index Scoring Tool Questions: Length of Stay (in days): 14 or more Was the patient admitted via the E.D.?: Yes Comorbidities: Cerebrovascular Disease, Diabetes w/o Complication (DM type 2), Chronic Pulmonary Disease and Any Tumor (HX adrenal nodule) E.D. Visits: 2 Answers: Total Score: 17 Risk of Readmission: High Risk Care Management Discharge Plan Reason for Hospitalization: CVA Discharge Plan: Daniel is discharged home on a course of IV Ampicillin. He will follow up with outpatient providers and his discharge plan of care as instructed. He is driven home by private vehicle with Colette. New [facility] RN/PT services are ordered. Home IV therapy is discussed with [facility] prior to discharge. Colette Holloway is agreeable to support Daniel with his home IV therapy under the direction of [facility]. Patient/Family Education Needs: Review discharge instructions, medications, limitations and plan to follow up with community providers and [facility]. Discuss ask me three. Services Needed at Discharge: Home Health Care Services (New [facility] RN/PT, Home Infusion therapy. Mynor Fitzgerald [facility] RN will go to patient home at 1pm.) and Infusion Therapy ( Option Care: Arrived at pts home morning of discharge. )
--- NOTE | 2023-01-13 14:50 | PDOC.HHF2F_ITS ---
Home Health Referral Home Health Orders Clinical synopsis of why skilled professionals are needed: VRE bacteremia, CVA Medical diagnosis necessitation home health referral: as above Registered Nurse: Check all that apply Instruct on new or changed medication(s)/assess compliance: Ordered IV therapy, consisting of: daily set up of continuous infusion of ampicillin 12 gm to be delivered over 24hr period. continue daily through 02/12/23 Physical Therapist: Check all that apply Increase strength & endurance for safe mobility at home: Ordered To design/establish home maintenance program: Ordered Occupational Therapist: Evaluate and treat for patient unable to perform ADL/IADL/self-care: Ordered Bioinformatics Software Engineer: Assist with community resources: Ordered Home Bound Status Requires the aid of supportive device (check all that apply): Walker Patient has a condition such that leaving home is medically contraindicated (Describe): due to recent CVA and VRE bacteremia, patient has become debilitated to the point that travel outside of his home puts undo risk of injury from falls, patient needs home P.T. and O.T. and nursing. He needs daily 24 hour infusions of ampicillin 12 gm continuous infusion over 24h and this needs done daily through 02/12/23 Describe why leaving home would require a considerable and taxing effort: Requires frequent rest periods and Safety Concerns: describe (increased risks of falls d/t general weakness and gait instability d/t recent CVA) Encounter Date and Reason: I certify that a FTF encounter for this patient was performed on January 13, 2023 and that such encounter was related to the primary reason the patient requires home health services. The encounter was conducted in the following manner: * By me as the certifying physician, SLOTTER OPERATOR HELPER, PA or * By an inpatient physician, SLOTTER OPERATOR HELPER or PA during an inpatient stay who communicated findings to me, Certification And Authentication I certify that I composed the above information based on my clinical judgment relating to this patient's medical condition and, if applicable, clinical findings communicated to me by the NPP or inpatient physician who performed the FTF encounter. Name of Provider that will be monitoring home health services: Sangita Rose
--- NOTE | 2023-01-14 09:24 | INDS_ITS ---
Date of service: 01/12/23 PT Notes Visit Reasons: Cerebrovascular accident Physical Therapy Inpatient Discharge Summary Date: 01/13/2023 Dates of Service: 01/07/2023 through 01/12/2023 This is a clinical summary of care provided for the duration of dates listed above. No charge was made in the completion of this documentation. Referring Doctor: Selvin Pearson MD PT Orders: PT CONSULT: Fall Safety Assessment Precautions: Remains on back precautions--No bending, lifting, or twisting. Patient Profile/Admitting Diagnosis:?Fever.? ? Adolfo is an 82-year-old male recently discharged from [facility] to [facility] with PT services from 12/25/2022 through 12/30/2022 S/P L3-L5 laminectomy with medial facetectomy and with foraminotomies with pedicale screw placement on POD 10 at [facility].? He was discharged to the [facility] on 12/30/2022 for continued rehabilitation but needed rehospitalization for management of occipital cerebral infarction, chronic low back pain, fever, positive blood culture, type II DM, essential hypertension, urinary retention, and COPD. 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) Most recent MRI 08/25/2022 showing stenosis; Spine consult 3Degenerative joint disease (DJD) of lumbar spine (Acute) Effusion, right knee (Acute) Arthritis of right glenohumeral joint (Acute) Degenerative joint disease of right knee (Acute) Depo-Medrol injection: 2Bronchiectasis (Acute) Adrenal nodule (Acute) Rib pain on left side (Acute) Trochanteric bursitis of both hips (Chronic) Non-alcoholic fatty liver disease (Chronic 09/29/12) Type 2 diabetes mellitus (Chronic) Dx: 10/2018Obesity (BMI 30-39.9) (Chronic) Advance directive in chart (Chronic 04/22/15) On-file with [facility] as of 04/22/2015 Sensorineural hearing loss, bilateral (Chronic 08/29/17) Osteoarthritis of knee (Chronic 08/13/13) Hypomagnesemia (Chronic 10/07/17) Hyperlipidemia, unspecified (Chronic 07/09/11) LDL GOAL 100 Gastroesophageal reflux disease (Chronic 07/09/11) Essential tremor (Chronic 07/27/11) Essential hypertension (Chronic 07/09/11) GOAL <130/80 Depression (Chronic 06/04/14) Long-term Celexa Rx Chronic obstructive pulmonary disease (COPD) (Chronic 09/29/12) MILD, 08/2012 PFTs FEV1 2.06 (70% pred and FVC), no response to bronchodilator; 11/17/15 bronchoscopy [facility]: NEG for [employer], fungus, & bacteria;? cytology NEG for malignancy Cardiomyopathy (Chronic 04/10/12) BPH (benign prostatic hyperplasia) (Chronic 04/10/12) ASCVD (arteriosclerotic cardiovascular disease) (Chronic) S/p 5 vessel CABG 1995 Echo 09/27/2014 with normal LVEF Medical History? 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 Arthroplasty of knee Extraction of cataract Status post coronary artery bypass graft (~1995) Social History/Home Situation: Patient lives in multilevel home with .? Has supportive children that live nearby. Equipment Owned/DME: Front wheel walker Subjective: NT. See most recent DELIVERY ROOM CLERK notes. Objective:? General Observation: NT. See most recent DELIVERY ROOM CLERK notes. Mental Status: NT. See most recent DELIVERY ROOM CLERK notes. Pain: NT. See most recent DELIVERY ROOM CLERK notes. Vital Signs: NT. See most recent DELIVERY ROOM CLERK notes. ROM: Right Upper Extremity: ? Shoulder Flexion WFL. Shoulder abduction WFL. Elbow flexion WFL. Wrist flexion WFL. Functional opening and closing of hand WFL. Left Upper Extremity:? Shoulder Flexion WFL. Shoulder abduction WFL. Elbow flexion WFL. Wrist flexion WFL. Functional opening and closing of hand WFL. Right Lower Extremity: Hip flexion WFL. Hip abduction WFL. Knee flexion WFL. Ankle dorsiflexion WFL. Ankle plantarflexion WFL. Left Lower Extremity: Hip flexion WFL. Hip abduction WFL. Knee flexion WFL. Ankle dorsiflexion WFL. Ankle plantarflexion WFL. Strength: Right Upper Extremity: Shoulder flexors 4-/5. Shoulder abductors 4-/5. Elbow flexors 4-/5. Elbow extensors 4-/5. Bioassayist strong. Left Upper Extremity: Shoulder flexors 4-/5. Shoulder abductors 4-/5. Elbow flexors 4-/5. Elbow extensors 4-/5. Bioassayist strong. Right Lower Extremity: Hip flexors 4-/5. Hip abductors 4-/5. Knee flexors 4-/5. Knee extensors 4-/5. Ankle dorsiflexors 4-/5. Ankle plantarflexors 4-/5. Left Lower Extremity: Hip flexors 4-/5. Hip abductors 4-/5. Knee flexors 4-/5. Knee extensors 4-/5. Ankle dorsiflexors 4-/5. Ankle plantarflexors 4-/5. Sensation: Inatct as to pain and light pressure in B LE BED MOBILITY/TRANSFERS? Rolling L/R: independent Supine-sit: independent? Sit-supine: independent ? Sit-stand: independent? Stand-sit: independent ? Bed-Chair: independent ? Chair-bed: independent ? GAIT? Assistive Device: front wheeled walker? Weight bearing: full Assist: independent ? Distance:? 550 feet? STAIRS: ascends and descends 26 stairs with bilateral hand rails and reciprocal gait pattern.? Balance:? Static Sitting: Good Dynamic Sitting:? Good Static Standing: Fair Dynamic Standing:?Fair Assessment:?? Now modified independent on level surface ambulation on the [facility] [address] using FWW.? Able to perform HEP with guidance of written/illustrated HEP. Goals: Goals X1 week 1. Supine-Sit independent MET 2. Sit-Supine independent MET 3. Sit-Stand independent MET 4. Stand-Sit independent MET 5. Bed-Chair independent MET 6. Chair-Bed independent MET 7. Independent gait on level surface with use of least restrictive device for at least 300 feet without report of pain nor dyspnea maintaining non weightbearing status MET 8. Independent stair negotiation while holding onto bilateral rails for at least 10 steps without report of pain nor dyspnea maintaining nonweightbearing status MET 9. Independent with home exercise program MET 10. Good static and dynamic standing balance/tolerance MET DISCHARGE RECOMMENDATIONS: [] ? Home with no services [] [X] ? Home with services patient will benefit from home health PT services in order to progress mobility level using least restrictive assistive ambulatory device, assess home safety, identify additional equipment needs, and establish a functional maintenance program that will increase ability of patient to remain at home. [] ? Home with outpatient PT [] [] ? SNF for continued rehabilitation [] ? Longterm Care [] [] ? SNF versus LTC based on ability to participate and progress [] TREATMENT CODE/TIME:? NC Thank you for the opportunity to participate in the care of this patient. Nona Sanders PT, DPT, CLT [facility] [place], [place]
== END 2023-01-13 13:29 | disposition home health service (06) | DRG 65 ==
LOC: ER 21:09 → MS 22:17
PROVIDERS: Family Medicine; Internal Medicine; Student in an Organized Health Care Education/Training Program; Admitting Provider Internal Medicine; Emergency Provider Emergency Medicine; PCP Nurse Practitioner Family; Visit Provider Internal Medicine
DX: I63.9 Cerebral infarction, unspecified (principal); I76 Septic arterial embolism; R78.81 Bacteremia; Z16.21 Resistance to vancomycin; M54.41 Lumbago with sciatica, right side; M54.42 Lumbago with sciatica, left side; G89.29 Other chronic pain; J44.9 Chronic obstructive pulmonary disease, unspecified; I25.10 Atherosclerotic heart disease of native coronary artery without angina pectoris; E11.9 Type 2 diabetes mellitus without complications; Z98.1 Arthrodesis status; R53.1 Weakness; D72.829 Elevated white blood cell count, unspecified; I25.5 Ischemic cardiomyopathy; R33.9 Retention of urine, unspecified; K59.00 Constipation, unspecified; K75.81 Nonalcoholic steatohepatitis (NASH); E66.9 Obesity, unspecified; Z68.36 Body mass index [BMI] 36.0-36.9, adult; H90.3 Sensorineural hearing loss, bilateral; M70.62 Trochanteric bursitis, left hip; M70.61 Trochanteric bursitis, right hip; E83.42 Hypomagnesemia; E78.5 Hyperlipidemia, unspecified; K21.9 Gastro-esophageal reflux disease without esophagitis; G25.0 Essential tremor; Z95.1 Presence of aortocoronary bypass graft; N40.0 Benign prostatic hyperplasia without lower urinary tract symptoms; I65.01 Occlusion and stenosis of right vertebral artery; Z66 Do not resuscitate; L89.151 Pressure ulcer of sacral region, stage 1; L89.221 Pressure ulcer of left hip, stage 1; B95.2 Enterococcus as the cause of diseases classified elsewhere
CPT/HCPCS: 36410; 36415; 36569; 70496; 70498; 71045; 74177; 80048; 80053; 80061; 82947; 84145; 85027; 85652; 87040; 87077; 87081; 87635; 87798; 93306; 94640; 96365; 96367; 96375; 97110; 97112; 97116; 97162; 97530; 99223; 99232; 99285; J1650; 70450; 70551; 71260; 81003; 81015; 82140; 83036; 83605; 83735; 84443; 84484; 85025; 85049; 86140; 86618; 87186; 94664; 94667; 94668; 99231; 99233; 99239; J0290; J1170; J2543; J3490

== ENCOUNTER → 2023-01-03 06:59 | Outpatient (BNVA) | payer MEDICARE, SELFPAY | PROVIDERS: PCP Nurse Practitioner Family; Referring Provider Nurse Practitioner Family; Visit Provider Psychiatry & Neurology Neurology ==

== ENCOUNTER 2023-01-13 13:32 | Outpatient (RCR) | payer MEDICARE, SELFPAY | END 2023-01-14 23:59 | disposition home or self-care (01) | LOC: RT 13:32 | PROVIDERS: PCP Nurse Practitioner Family; Visit Provider Internal Medicine | DX: I63.9 Cerebral infarction, unspecified (principal) | CPT/HCPCS: 93270 ==

== ENCOUNTER 2023-01-21 14:56 | Outpatient (REF) | payer MEDICARE, SELFPAY ==
[2023-01-21 14:26] LABS: ALT 22 U/L (16-63); AST 19 U/L (15-37); Albumin 3.5 g/dL (3.4-5.0); Alkaline Phosphatase 146 U/L (46-116); Anion Gap 11.1 mmol/L (3-11); BUN 20 mg/dL (7-18); Bilirubin, Total 0.5 mg/dL (0.2-1.0); C-Reactive Protein 0.54 mg/dL (0.0-0.3); CO2 25.9 mmol/L (21.0-32.0); Chloride 104 mmol/L (98-107); Estimated GFR 74.21 (mL/min/1.73m2); Glucose 181 mg/dL (74-106); Potassium 4.3 mmol/L (3.5-5.1); Sodium 141 mmol/L (136-145); TSH 0.77 uIU/mL (0.36-3.74); Total Protein 6.7 g/dL (6.4-8.2)
== END 2023-01-21 14:57 | disposition home or self-care (01) ==
LOC: NCHCN 14:56
PROVIDERS: PCP Nurse Practitioner Family; Visit Provider Nurse Practitioner Family
DX: Z51.81 Encounter for therapeutic drug level monitoring (principal)
CPT/HCPCS: 80053; 84443; 85025; 86140

== ENCOUNTER 2023-01-22 15:09 | Outpatient (REF) | payer MEDICARE, SELFPAY ==
[2023-01-22 15:27] LABS: Abs Immature Grans 0.03 10^3/uL (0.0-0.06); Absolute Basophil Count 0.03 10^3/uL (0.0-0.2); Absolute Eosinophil Count 0.25 10^3/uL (0.0-0.7); Absolute Lymphocyte Count 1.42 10^3/uL (1.2-3.4); Absolute Monocyte Count 0.56 10^3/uL (0.1-0.8); Absolute Neutrophil Count 5.46 10^3/uL (1.2-6.7); Basophils % 0.4; Eosinophils % 3.2; HCT 36.9 % (40.0-50.0); HGB 12.4 g/dL (13.5-17.5); Immature Grans % 0.4; Lymphocytes % 18.3; MCH 30.8 pg (27.0-33.0); MCHC 33.6 % (32.0-36.0); MCV 92 fL (80-95); MPV 9.9 fL (8.0-11.0); Monocytes % 7.2; Neutrophils % 70.5; Platelet Count 250 10^3/uL (130-400); RBC 4.03 10^6/uL (4.36-5.78); RDW 13.6 % (11.8-14.1); RDW-SD 45.6 fL; WBC 7.75 10^3/uL (4.4-10.8)
== END 2023-01-22 15:10 | disposition home or self-care (01) ==
LOC: LBN 15:09
PROVIDERS: PCP Nurse Practitioner Family; Visit Provider Nurse Practitioner Family
DX: R53.1 Weakness (principal); Z79.899 Other long term (current) drug therapy
CPT/HCPCS: 85025

== ENCOUNTER 2023-01-28 15:03 | Outpatient (REF) | payer MEDICARE, SELFPAY ==
[2023-01-28 10:41] LABS: Abs Immature Grans 0.03 10^3/uL (0.0-0.06); Absolute Basophil Count 0.02 10^3/uL (0.0-0.2); Absolute Eosinophil Count 0.29 10^3/uL (0.0-0.7); Absolute Lymphocyte Count 0.98 10^3/uL (1.2-3.4); Absolute Monocyte Count 0.55 10^3/uL (0.1-0.8); Absolute Neutrophil Count 4.81 10^3/uL (1.2-6.7); Basophils % 0.3; Eosinophils % 4.3; HCT 38.8 % (40.0-50.0); HGB 12.7 g/dL (13.5-17.5); Immature Grans % 0.4; Lymphocytes % 14.7; MCH 30.6 pg (27.0-33.0); MCHC 32.7 % (32.0-36.0); MCV 94 fL (80-95); MPV 9.7 fL (8.0-11.0); Monocytes % 8.2; Neutrophils % 72.1; Platelet Count 255 10^3/uL (130-400); RBC 4.15 10^6/uL (4.36-5.78); RDW 13.8 % (11.8-14.1); RDW-SD 47.1 fL; WBC 6.68 10^3/uL (4.4-10.8)
[2023-01-28 11:18] LABS: ALT 17 U/L (16-63); AST 18 U/L (15-37); Albumin 3.3 g/dL (3.4-5.0); Alkaline Phosphatase 158 U/L (46-116); Anion Gap 10.1 mmol/L (3-11); BUN 16 mg/dL (7-18); Bilirubin, Total 0.6 mg/dL (0.2-1.0); C-Reactive Protein 0.57 mg/dL (0.0-0.3); CO2 26.9 mmol/L (21.0-32.0); CREATININE 1.1 mg/dL (0.70-1.30); Calcium 8.9 mg/dL (8.5-10.1); Chloride 103 mmol/L (98-107); Estimated GFR 66.19 (mL/min/1.73m2); Glucose 159 mg/dL (74-106); Potassium 4.6 mmol/L (3.5-5.1); Sodium 140 mmol/L (136-145); Total Protein 6.6 g/dL (6.4-8.2)
== END 2023-01-28 15:04 | disposition home or self-care (01) ==
LOC: LBN 15:03
PROVIDERS: PCP Nurse Practitioner Family; Visit Provider Nurse Practitioner Family
DX: I63.9 Cerebral infarction, unspecified (principal); R50.9 Fever, unspecified; Z51.81 Encounter for therapeutic drug level monitoring; Z79.899 Other long term (current) drug therapy; R53.1 Weakness; Z98.1 Arthrodesis status; R79.82 Elevated C-reactive protein (CRP)
CPT/HCPCS: 80053; 85025; 86140

== ENCOUNTER 2023-02-05 13:51 | Outpatient (REF) | payer MEDICARE, SELFPAY ==
[2023-02-05 15:06] LABS: Abs Immature Grans 0.02 10^3/uL (0.0-0.06); Absolute Basophil Count 0.04 10^3/uL (0.0-0.2); Absolute Eosinophil Count 0.22 10^3/uL (0.0-0.7); Absolute Lymphocyte Count 1.15 10^3/uL (1.2-3.4); Absolute Monocyte Count 0.52 10^3/uL (0.1-0.8); Absolute Neutrophil Count 4.57 10^3/uL (1.2-6.7); Basophils % 0.6; Eosinophils % 3.4; HCT 36.8 % (40.0-50.0); HGB 12.1 g/dL (13.5-17.5); Immature Grans % 0.3; Lymphocytes % 17.6; MCH 30.4 pg (27.0-33.0); MCHC 32.9 % (32.0-36.0); MCV 93 fL (80-95); MPV 10.1 fL (8.0-11.0); Neutrophils % 70.1; Platelet Count 241 10^3/uL (130-400); RBC 3.98 10^6/uL (4.36-5.78); RDW 13.8 % (11.8-14.1); RDW-SD 47.2 fL; WBC 6.52 10^3/uL (4.4-10.8)
[2023-02-05 15:16] LABS: ALT 18 U/L (16-63); AST 19 U/L (15-37); Albumin 3.4 g/dL (3.4-5.0); Alkaline Phosphatase 154 U/L (46-116); BUN 18 mg/dL (7-18); Bilirubin, Total 0.7 mg/dL (0.2-1.0); C-Reactive Protein 0.48 mg/dL (0.0-0.3); CREATININE 0.9 mg/dL (0.70-1.30); Calcium 8.8 mg/dL (8.5-10.1); Chloride 104 mmol/L (98-107); Estimated GFR 84.22 (mL/min/1.73m2); Glucose 104 mg/dL (74-106); Potassium 4.4 mmol/L (3.5-5.1); Sodium 139 mmol/L (136-145); Total Protein 6.4 g/dL (6.4-8.2)
== END 2023-02-05 13:52 | disposition home or self-care (01) ==
LOC: LBN 13:51
PROVIDERS: PCP Nurse Practitioner Family; Visit Provider Nurse Practitioner Family
DX: Z51.81 Encounter for therapeutic drug level monitoring (principal)
CPT/HCPCS: 80053; 85025; 86140

== ENCOUNTER 2023-02-15 03:46 | Outpatient (CLI) | payer MEDICARE, SELFPAY ==
[2023-02-15 12:41] LABS: Anion Gap 8.2 mmol/L (3-11); BUN 20 mg/dL (7-18); CO2 28.8 mmol/L (21.0-32.0); CREATININE 0.9 mg/dL (0.70-1.30); Calcium 9.1 mg/dL (8.5-10.1); Chloride 103 mmol/L (98-107); Estimated GFR 84.22 (mL/min/1.73m2); Glucose 134 mg/dL (74-106); Potassium 4.2 mmol/L (3.5-5.1); Sodium 140 mmol/L (136-145); TSH (W/Ref FT4) 1.16 uIU/mL (0.36-3.74)
== END 2023-02-15 03:47 | disposition home or self-care (01) ==
LOC: LBO 03:48
PROVIDERS: Student in an Organized Health Care Education/Training Program; PCP Nurse Practitioner Family; Referring Provider Nurse Practitioner Family; Visit Provider Nurse Practitioner Family
DX: Z51.81 Encounter for therapeutic drug level monitoring; R79.89 Other specified abnormal findings of blood chemistry
CPT/HCPCS: 36415; 80048; 84443

== ENCOUNTER 2023-02-17 13:08 | Outpatient (CLI) | payer MEDICARE, SELFPAY ==
--- NOTE | 2023-02-17 15:07 | W.CARDEVENT ---
Date of service: 02/17/23 Time of Service: 15:07 Cardiac Event Recorder Referring Provider:: Sangita Rose Indications:: Stroke Cardiac Event Note: This is a 30-day cardiac event monitor ordered because of stroke Patient was monitored for 23 days 23 hours Predominant rhythm was sinus with an average heart rate of 75. Minimum was 57, maximum 105 There was no atrial fibrillation There appeared to be 3 episodes of nonsustained ventricular tachycardia. These were 4, 6, and 10 beats in duration. It was possible that 1 of these runs was SVT given the fact that the patient has a baseline interventricular conduction delay There was no high-grade AV block, no pauses greater than 3 seconds There were no patient symptoms
== END 2023-02-17 13:09 | disposition home or self-care (01) ==
LOC: CARDOPNVT 13:08
PROVIDERS: PCP Nurse Practitioner Family; Visit Provider Internal Medicine Cardiovascular Disease
DX: I63.9 Cerebral infarction, unspecified (principal); I47.20 Ventricular tachycardia, unspecified
CPT/HCPCS: 93272

== ENCOUNTER → 2023-03-01 12:19 | Outpatient (BNVA) | payer MEDICARE, SELFPAY | PROVIDERS: PCP Nurse Practitioner Family; Referring Provider Nurse Practitioner Family; Visit Provider Psychiatry & Neurology Neurology | DX: G25.0 Essential tremor (principal); Z86.73 Personal history of transient ischemic attack (TIA), and cerebral infarction without residual deficits; Z79.02 Long term (current) use of antithrombotics/antiplatelets; Z79.82 Long term (current) use of aspirin; E78.5 Hyperlipidemia, unspecified; E11.9 Type 2 diabetes mellitus without complications; I10 Essential (primary) hypertension; J44.9 Chronic obstructive pulmonary disease, unspecified | CPT/HCPCS: 99214 ==

== ENCOUNTER 2023-04-26 13:52 | Emergency (ER) | payer MEDICARE, SELFPAY ==
[2023-04-26] VITALS (26 sets, daily range): BP systolic 159–200; BP diastolic 67–85; PULSE 72–98; RESP 14–25; TEMP 36.6; O2SAT 92–99
--- NOTE | 2023-04-26 14:00 | RT.EKG_ITS ---
APPROVED REPORT Exam: Resting ECG Reason for Exam: sob Patient Location: E HR:75 bpm ECG Measurements Heart Rate 75 AXIS NV 175 P 31 QRSd 124 QRS -16 QT 428 T 28 QTc 479 Conclusion Sinus rhythm...normal P axis, V-rate 60- 99 Nonspecific intraventricular conduction delay...QRSd >115mS, not LBBB/RBBB Anterolateral infarct, old...Q>40mS, abnrm ST-T, V3-V6,I,aVL Normal sinus rhythm at a rate of 75. Interventricular conduction delay. Left axis deviation. QTc w ithin normal limits. NV within normal limits. No signs of LVH based on voltage criteria. Poor R wa ve progression. No acute injury pattern. Appears similar to prior dated earlier this year.
--- NOTE | 2023-04-26 14:08 | W.ED.GENAD ---
Discharge Plan Disposition Patient Disposition: Home Discharge Details Clinical Impression: Ureterolithiasis, Right kidney stone Primary Care Provider: Sangita Rose ED Provider: Trevon Rose Home Meds and New Rx's Prescriptions: Continued magnesium oxide 500 mg capsule 500 mg PO DAILY Qty: 90 3RF acetaminophen 500 mg tablet 1,000 mg PO TID PRN chlorhexidine gluconate [Hibiclens] 4 % liquid 1 applic topical ONCE PRN (Reason: Tinea) Patient Comments: Pt states not taking - ML 04/26/23 Rx Instructions: as a single dose metoprolol succinate 25 mg tablet extended release 24 hr 25 mg PO DAILY Qty: 90 3RF acetylcysteine [NAC] 600 mg capsule 600 mg PO BID Qty: 60 7RF gabapentin 300 mg capsule 300 mg PO TID Qty: 270 3RF aspirin 81 MG tablet,delayed release (DR/EC) 81 mg PO DAILY (DME) Aerochamber Plus Flow-Vu,S Msk 1 EACH spacer 1 ea Miscellaneous PRN polyethylene glycol 3350 [GlycoLax] 527 GM powder 17 g PO DAILY (DME) lancets [OneTouch Delica Lancets] 1 EACH misc 1 ea Miscellaneous DAILY Qty: 100 Rx Instructions: E11.9 to maintain A1C less than 7.0 albuterol sulfate [ProAir HFA] 8.5 GM HFA aerosol inhaler 1 - 2 puff Inhalation Q4-6H PRN Qty: 1 3RF Rx Instructions: DISPENSE ALBUTEROL INHALER BRAND COVERED BY INSURANCE cholecalciferol (vitamin D3) 25 mcg (1,000 unit) tablet 1,000 unit PO BID (DME) nebulizer and accessories See Rx Instructions .Route .MEDSUPPLY Qty: 1 0RF Rx Instructions: As directed atorvastatin 80 mg tablet 80 mg PO DAILY Qty: 90 3RF (DME) Blood Glucose Test Strip See Rx Instructions .ROUTE .MEDSUPPLY Qty: 100 3RF Rx Instructions: As directed to check daily morning fasting blood glucose. No insulin. Dispense covered brand. albuterol sulfate 2.5 mg /3 mL (0.083 %) solution for nebulization 2.5 mg inhalation Q4H PRN (Reason: shortness of breath or wheezing) Qty: 180 3RF fluticasone furoate-vilanterol [Breo Ellipta] 100-25 mcg/dose blister with device 1 ea Inhalation DAILY Qty: 3 12RF Rx Instructions: 3 month supply Incruse Ellipta 62.5 mcg/actuation blister with device 62.5 mcg Inhalation DAILY Qty: 3 12RF Rx Instructions: 3 month supply Trelegy Ellipta 100-62.5-25 mcg Blister With Device 1 inh INHALATION DAILY ipratropium-albuterol 0.5 mg-3 mg(2.5 mg base)/3 mL Solution For Nebulization 3 ml INHALATION PRN PRN cyclobenzaprine 10 mg tablet 10 mg PO TID PRNQty: 20 0RF Patient Comments: Pt states not taking - ML 04/26/23 primidone 50 mg tablet 50 mg PO QHS MDD 150 mg Qty: 270 3RF citalopram [Celexa] 40 mg tablet 40 mg PO DAILY pantoprazole [Protonix] 20 mg tablet,delayed release (DR/EC) 20 mg PO DAILY Rx Instructions: Take 20 mg daily once daily in the morning at least 30-60 minutes before first meal of the day Discharge Instructions Instructions: Kidney Stones (ED) Additional Instructions: You were seen in the emergency department for your flank pain and frequent urination. You were found to have a kidney stone for which you are receiving medicines you should take as directed for pain. For your pain please take medications as follows: 1. Take acetaminophen (Tylenol), 1,000 mg (two 500 mg tabs) every 6 hours You are also receiving some opiate medicines which you should take as needed for additional pain. Please not drive or drink alcohol after taking her opiates. If you become nauseous have worsening pain cannot eat or drink or any other concerns please return to the emergency department. Discharge Data Discharge Date/Time-TO BE ENTERED AT DEPARTURE: 04/26/23 17:41 HPI General Date/Time Provider Initiated Documentation: 04/26/23 14:06. HPI Narrative: HPI This is a diabetic 82-year-old male with a history of BPH and prior CVA arriving to the emergency department via private vehicle in the setting of multiple medical complaints. Patient reports that he had a COVID booster 4 days ago. He reports that 2 days ago he began feeling short of breath. Also he noticed increased urinary frequency. He is occasionally had some cramping lower abdominal pain and some nausea. He reported that his abdominal pain improved with Pepto-Bismol. He is not sure whether he has had ureterolithiasis or cholelithiasis in the past. He has never had a PE nor DVT. He has remotely had a urinary tract infection. He has not taken any falls recently. He has not noticed any bloody urine. He denies chest pain fevers and vomiting. Exam General: Well-appearing in no acute distress speaking in complete sentences. Head: Normocephalic, atraumatic. Eye: Extraocular eye movements intact. No conjunctival injection. No scleral icterus. Ear, nose, mouth, throat: Grossly normal inspection. Normal voice, handling secretions normally. Neck: Trachea midline. Cardiovascular: Well-perfused distal extremities.Regular rate and rhythm. No murmurs. Respiratory: Nonlabored respiration. Clear lungs bilaterally. Gastrointestinal: Nondistended abdomen. Minimal suprapubic discomfort. No rebound. No guarding. Musculoskeletal: No edema. Moving all 4 extremities spontaneously. Skin: Normal for age and race, grossly normal temperature and turgor. No acute rash. Neurologic: Alert and appropriate, no apparent acute deficits. Psychiatric: Mood and manner are appropriate. Grooming and personal hygiene are appropriate. MDM This is an overall well-appearing normothermic and not tachycardic 82-year-old male with shortness of breath abdominal pains and urinary frequency concerning for multiple etiologies. His urinary frequency is concerning for the possibility of UTI for which patient will undergo urinalysis to assess for nitrites. Furthermore his BPH makes him at increased risk for UTI. His shortness of breath is concerning for multiple etiologies. Given the current uptake in COVID cases it is certainly possible that the patient could have COVID so we will send a respiratory viral swab. He does not endorse chest pain although based on his age will obtain ECG and single troponin to assess for ACS. Will also obtain a two-view chest x-ray though he denies fevers to assess for pneumonia. He also has had cramping lower abdominal pain based on his age will obtain a CT abdomen pelvis. PE is also a possibility so we will obtain a D-dimer as patient is otherwise low risk. He has had no lower extremity swelling nor weight gain to suggest acute heart failure so we will defer proBNP and diuresis at this point time. No pain out of proportion to suggest necrotizing soft tissue infection. No trauma and equal breath sounds so doubt pneumothorax. No black nor bloody stools so my suspicion is low for acute blood loss anemia and the patient is not anticoagulated beyond 81 mg of aspirin. No focal neurological deficits to suggest CVA. Will obtain basic labs and reassess. Given lower quadrant abdominal pain appendicitis and diverticulitis is certainly in the differential. Patient has not been vomiting to suggest SBO. No rash to abdomen to suggest zoster. Patient is not septic so I did not order lactate, blood cultures nor treat empirically with IV antibiotics. We will continue to monitor the patient's blood pressure as he reports that he had been adherent with his home antihypertensive earlier today. 2:57 PM CBC lacks anemia thrombocytopenia and leukocytosis. 3:15 PM Negative troponin. Comprehensive metabolic panel showing no NATANAEL. Mild hyperglycemia but no anion gap and normal bicarbonate??not consistent with DKA. Very mild alkaline phosphatase elevation. Similar to prior. No acute electrolyte abnormalities. Positive D-dimer for which patient will undergo CTA to assess for PE. COVID influenza RSV all negative. 3:37 PM Urinalysis showing small blood but nitrite negative no leuk esterase. Microscopy pending. 3:45 PM Chest x-ray read as no acute process. 5-10 RBCs per high-power field. Given concerns for urinary symptoms we will treat with 2 g ceftriaxone to cover acute UTI. 5:[address] scan patient did have a 6 mm right UVJ stone. This certainly could be the cause of his hematuria rather than a urinary tract infection so we will observe off of antibiotics. His pain was improved following fentanyl. He takes aspirin so we will defer ketorolac and ibuprofen at this point time. I have asked health community sports coordinator Shireen to have the patient seen within the next week by urology. Otherwise we will provide several doses of outpatient opiates and advised scheduled acetaminophen. Given stone less than 10 mm no NATANAEL will proceed with empiric trial of expectant outpatient management. Chronic conditions affecting the care of the patient: Diabetes BPH History obtained from an outside historian: N/A External record review: [facility] [place] EMR [Diagnostic interpretations performed by me:] [Per my independent interpretation chest x-ray shows:] No acute cardiopulmonary process [Per my independent interpretation EKG shows:] Normal sinus rhythm at a rate of 75. Interventricular conduction delay. Left axis deviation. QTc within normal limits. [place] within normal limits. No signs of LVH based on voltage criteria. Poor R wave progression. No acute injury pattern. Appears similar to prior dated earlier this year. Medications: Fentanyl Social determinants of health affecting disposition: N/A Management discussed with: N/A Treatment/interventions considered: Blood pressure control but deferred given asymptomatic hypertension Response to therapies provided: Improved pain in the ED Related Data Home Medications Medication Instructions Recorded Confirmed aspirin 81 mg tablet,delayed 81 mg PO DAILY 09/28/12 04/26/23 release inhalational spacing device 09/28/12 04/26/23 (Aerochamber Plus Flow-Vu,Small Mask) lancets 33 gauge (OneTouch [facility] [facility] [facility] #100 ea 10/13/16 04/26/23 Lancets) polyethylene glycol 3350 17 17 g PO DAILY 10/13/16 04/26/23 gram/dose oral powder (GlycoLax) albuterol sulfate 90 mcg/actuation 1 - 2 puff inhalation Q4-6H PRN ##1 04/18/17 04/26/23 aerosol inhaler (ProAir HFA) magnesium oxide 500 mg capsule 500 mg PO DAILY #90 tab-caps 11/02/18 04/26/23 cholecalciferol (vitamin D3) 25 1,000 unit PO BID 11/01/19 04/26/23 mcg (1,000 unit) tablet acetaminophen 500 mg tablet 1,000 mg PO TID PRN 07/15/21 04/26/23 acetylcysteine 600 mg capsule (NAC) 600 mg PO BID #60 caps 10/20/21 04/26/23 nebulizer and accessories #1 ea 04/16/22 04/26/23 cyclobenzaprine 10 mg tablet 10 mg PO TID PRN #20 tabs 07/21/22 04/06/23 atorvastatin 80 mg tablet 80 mg PO DAILY #90 tabs 10/13/22 04/26/23 blood sugar diagnostic (Blood #100 ea 10/13/22 04/26/23 Glucose Test strips) metoprolol succinate 25 mg 25 mg PO DAILY #90 tab-caps 10/21/22 04/26/23 tablet,extended release 24 hr primidone 50 mg tablet 50 mg PO QHS #270 tabs 12/29/22 04/26/23 fluticasone fur. 100 mcg-umeclid 1 inh inhalation DAILY 12/31/22 04/26/23 62.5 mcg-vilant 25 mcg inhalat.powder (Trelegy Ellipta) ipratropium 0.5 mg-albuterol 3 mg 3 ml inhalation PRN PRN 12/31/22 04/26/23 (2.5 mg base)/3 mL nebulization soln albuterol sulfate 2.5 mg/3 mL 2.5 mg (3 mL) inhalation Q4H PRN 01/05/23 04/26/23 (0.083 %) solution for nebulization shortness of breath or wheezing #180 vials gabapentin 300 mg capsule 300 mg PO TID #270 caps 01/19/23 04/26/23 fluticasone furoate 100 1 ea inhalation DAILY #3 units 02/07/23 04/26/23 mcg-vilanterol 25 mcg/dose inhalation powder (Breo Ellipta) umeclidinium 62.5 mcg/actuation 62.5 mcg inhalation DAILY #3 units 02/07/23 04/26/23 blister powder for inhalation (Incruse Ellipta) chlorhexidine gluconate 4 % 1 applic topical ONCE PRN Tinea 04/06/23 04/06/23 topical liquid (Hibiclens) citalopram 40 mg tablet (Celexa) 40 mg PO DAILY 04/26/23 04/26/23 pantoprazole 20 mg tablet,delayed 20 mg PO DAILY 04/26/23 04/26/23 release (Protonix) Previous Rx's Medication Instructions Recorded albuterol sulfate 90 mcg/actuation 1 - 2 puff inhalation Q4-6H PRN ##1 04/18/17 aerosol inhaler (ProAir HFA) magnesium oxide 500 mg capsule 500 mg PO DAILY #90 tab-caps 11/02/18 acetylcysteine 600 mg capsule (NAC) 600 mg PO BID #60 caps 10/20/21 nebulizer and accessories #1 ea 04/16/22 cyclobenzaprine 10 mg tablet 10 mg PO TID PRN #20 tabs 07/21/22 atorvastatin 80 mg tablet 80 mg PO DAILY #90 tabs 10/13/22 blood sugar diagnostic (Blood #100 ea 10/13/22 Glucose Test strips) metoprolol succinate 25 mg 25 mg PO DAILY #90 tab-caps 10/21/22 tablet,extended release 24 hr primidone 50 mg tablet 50 mg PO QHS #270 tabs 12/29/22 albuterol sulfate 2.5 mg/3 mL 2.5 mg (3 mL) inhalation Q4H PRN 01/05/23 (0.083 %) solution for nebulization shortness of breath or wheezing #180 vials gabapentin 300 mg capsule 300 mg PO TID #270 caps 01/19/23 fluticasone furoate 100 1 ea inhalation DAILY #3 units 02/07/23 mcg-vilanterol 25 mcg/dose inhalation powder (Breo Ellipta) umeclidinium 62.5 mcg/actuation 62.5 mcg inhalation DAILY #3 units 02/07/23 blister powder for inhalation (Incruse Ellipta) Allergies Allergy/AdvReac Type Severity Reaction Status Date / Time codeine AdvReac Unknown Verified 04/26/23 14:05 General Stated Complaint: RespSymp YUE: 3 PFSH All Active Problems (Updated 04/26/23 @ 17:34 by Trevon Rose MD) Ureterolithiasis (Acute) Right kidney stone (Acute) Hip pain (Acute) Vancomycin resistant enterococcus culture positive (Acute) Occipital cerebral infarction (Acute) CVA (cerebral vascular accident) (Chronic) Weakness (Acute) Degenerative spondylolisthesis (Acute) 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) Most recent MRI 08/25/2022 showing stenosis; Spine consult 11/01/2022 Degenerative joint disease (DJD) of lumbar spine (Acute) Effusion, right knee (Acute) Arthritis of right glenohumeral joint (Acute) Degenerative joint disease of right knee (Acute) Depo-Medrol injection: 05/07/2022 Bronchiectasis (Acute) Adrenal nodule (Acute) Rib pain on left side (Acute) Trochanteric bursitis of both hips (Chronic) Non-alcoholic fatty liver disease (Chronic 09/29/12) Type 2 diabetes mellitus (Chronic) Dx: 10/2018 Obesity (BMI 30-39.9) (Chronic) Advance directive in chart (Chronic 04/22/15) On-file with [facility] as of 04/22/2015 Sensorineural hearing loss, bilateral (Chronic 08/29/17) Osteoarthritis of knee (Chronic 08/13/13) Hypomagnesemia (Chronic 10/07/17) Hyperlipidemia, unspecified (Chronic 07/09/11) LDL GOAL 100 Gastroesophageal reflux disease (Chronic 07/09/11) Essential tremor (Chronic 01/10/12) Essential hypertension (Chronic 07/09/11) GOAL <130/80 Depression (Chronic 06/04/14) Long-term Celexa Rx Chronic obstructive pulmonary disease (COPD) (Chronic 09/29/12) MILD, 08/2012 PFTs FEV1 2.06 (70% pred and FVC), no response to bronchodilator; 11/17/15 bronchoscopy [facility]: NEG for [employer], fungus, & bacteria; cytology NEG for malignancy Cardiomyopathy (Chronic 04/10/12) BPH (benign prostatic hyperplasia) (Chronic 04/10/12) ASCVD (arteriosclerotic cardiovascular disease) (Chronic) S/p 5 vessel CABG 1995 Echo 09/27/2014 with normal LVEF Medical History Actinic keratosis Cataract 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 Done at [facility] by Jimmy Cabrera MD Status post coronary artery bypass graft (~1995) Family History Father , CVA at age 80. Essential tremor Heart disease Hypertension Sister Hypertensive disorder, systemic arterial Heart disease Brother , MD at age 78. Heart disease Essential tremor Brother Heart disease Daughter Essential tremor Social History Smoking/Tobacco Use Status: Former Tobacco Use Tobacco: How many years used: 30 Smoking risk assessment performed?: Yes Alcohol Intake: never Drug use: Never Substance use type: does not use Adopted: No Caregiver/Support person: No Foster care: No Household members: spouse Housing: house Number of Children: 7 number of grandchildren: 25 Communication Needs: Hard of Hearing Education Level: high school Do you need help understanding health information?: Rarely current occupation: [employer] Pets and animals: Yes Pets and animals: dog(s) Sexually active: No Do you think of yourself as: straight/heterosexual Current gender identity: male What is your relationship status?: How often do you talk on the phone with friends or family?: three or more times per week How often do you get together with friends or relatives?: once per week Do you belong to any clubs or organized social groups?: yes Panel score (0-1 are the most socially isolated patients): 3 What type of physical activity do you participate in: walking and other Details: House work Duration: 15-30 minutes/day Frequency: 5-6 times per week Lindy/Buddhism: Church Seatbelt use: always Drive intox or ride w/intox 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 Course Vital Signs Vital signs: Vital Signs Temperature 36.6 C 04/26/23 13:57 Pulse 79 04/26/23 13:57 Respiratory Rate 20 04/26/23 13:57 Blood Pressure 200/85 H 04/26/23 13:57 Pulse Oximetry 99 04/26/23 13:57 Temperature 36.6 C 04/26/23 13:57 Temperature Source Oral 04/26/23 13:57 Pulse 79 04/26/23 13:57 Respiratory Rate 20 04/26/23 13:57 Blood Pressure 200/85 H 04/26/23 13:57 Blood Pressure Position Sitting 04/26/23 13:57 Pulse Oximetry 99 04/26/23 13:57 Oxygen Delivery Method Room Air 04/26/23 13:57 Oxygen Flow Rate 0 04/26/23 13:57
[2023-04-26 14:46] LABS: Abs Immature Grans 0.03 10^3/uL (0.0-0.06); Absolute Basophil Count 0.03 10^3/uL (0.0-0.2); Absolute Eosinophil Count 0.16 10^3/uL (0.0-0.7); Absolute Lymphocyte Count 0.76 10^3/uL (1.2-3.4); Absolute Monocyte Count 0.72 10^3/uL (0.1-0.8); Absolute Neutrophil Count 7.08 10^3/uL (1.2-6.7); Basophils % 0.3; Eosinophils % 1.8; HCT 41.3 % (40.0-50.0); HGB 13.6 g/dL (13.5-17.5); Immature Grans % 0.3; Lymphocytes % 8.7; MCHC 32.9 % (32.0-36.0); MCV 91 fL (80-95); MPV 9.7 fL (8.0-11.0); Monocytes % 8.2; Neutrophils % 80.7; Platelet Count 227 10^3/uL (130-400); RBC 4.53 10^6/uL (4.36-5.78); RDW 14.7 % (11.8-14.1); RDW-SD 49.3 fL; WBC 8.78 10^3/uL (4.4-10.8)
[2023-04-26] MEDS: fentaNYL 100 MCG/2 ML VIAL 50 MCG IVP (14:53)
[2023-04-26 15:04] LABS: ALT 17 U/L (16-63); AST 17 U/L (15-37); Albumin 3.9 g/dL (3.4-5.0); Alkaline Phosphatase 133 U/L (46-116); Anion Gap 7.7 mmol/L (3-11); BUN 20 mg/dL (7-18); Bilirubin, Total 0.8 mg/dL (0.2-1.0); CO2 28.3 mmol/L (21.0-32.0); CREATININE 0.9 mg/dL (0.70-1.30); Calcium 9.7 mg/dL (8.5-10.1); Chloride 103 mmol/L (98-107); Estimated GFR 84.22 (mL/min/1.73m2); Glucose 164 mg/dL (74-106); Potassium 4.1 mmol/L (3.5-5.1); Sodium 139 mmol/L (136-145); Total Protein 7.8 g/dL (6.4-8.2); Troponin I < 50 ng/L (<or=60)
[2023-04-26 15:05] LABS: COVID-19 PCR Negative (Negative); Influenza A PCR Negative (Negative); Influenza B PCR Negative (Negative); RSV PCR Negative (Negative)
[2023-04-26 15:06] LABS: Source Nasopharynx
[2023-04-26 15:15] LABS: D-Dimer 1069 ng/mlFEU (<500)
--- NOTE | 2023-04-26 15:17 | DI.CT_ITS ---
Exam(s) CT CHEST PE ABD PELVIS W EXAM: CT CHEST PE ABD PELVIS W CLINICAL HISTORY: Positive dimer shortness of breath. TECHNIQUE: Imaging Protocol: Axial CT angiography was performed with multi-slice acquisition and mu lti-planar and/or 3D reconstructions. CONTRAST MATERIAL: Intravenous: Omnipaque 350 Contrast volume:100 ml COMPARISON: CT CT CHEST/ABD/PEL W from 12/31/[address] LUMBAR SPINE RECONS from 12/31/[address] BRAIN NECK CTA from 01/01/2023 FINDINGS: CHEST: Pulmonary Arteries: No evidence of filling defects to suggest pulmonary emboli. Tracheobronchial tree: No bronchiectasis or mucus plugging. Mediastinum and Nohemi: No dominant adenopathy or fluid collection. Pulmonary parenchyma: Evaluation somewhat limited due to expiratory changes. Areas of atelectasis. No consolidation or dominant measurable mass. Pleura: No effusion. No pneumothorax. Heart: The heart is mildlydilated. No pericardial effusion. Coronary artery calcifications. CABG . Aorta: Thoracic aorta non-dilated. Bones: Old T11 compression fracture. Sternotomy wires. Tubes, Catheters, and Lines: None. ABDOMEN and PELVIS: Liver: Normal size. Normal density. No suspicious measurable mass. Portal, Superior Mesenteric, and Splenic Veins: Unremarkable. Gallbladder and Biliary Tract: No radiodense calculus. No biliary dilatation. Pancreas: Normal density, no abnormal calcifications or inflammatory process. Spleen: Normal. Adrenals: No masses seen. Kidneys: Normal size, contour and axis. Mild right hydronephrosis. Right ureter is dilated down to the ureterovesical junction where there is a 6 millimeter stone. A few additional calculi are noted in both kidneys. Bilateral renal cysts again noted. No follow-up recommended. No masses seen. Vasculature: Abdominal aorta non-dilated. Bowel: No obstruction or bowel wall thickening. Appendix is unremarkable. Peritoneal Cavity: No ascites, collection or mesenteric inflammatory response. Lymph Nodes: Within normal limits. Soft Tissues: Unremarkable. Bladder: Mild wall thickening. 5 millimeter calcification on the right side of the bladder/UVJ. Reproductive Organs: Prostate mildly enlarged. Lymph Nodes: Within normal limits. Bones: Postsurgical and degenerative changes. IMPRESSION: 1. No evidence of pulmonary embolism. . No acute abnormality in the chest. 2. Mild right hydronephrosis secondary to a 6 millimeter stone at the ureterovesical junction. RADIATION DOSE DELIVERED: Total DLP DATA REPOSITORY: All CT scans at this facility are submitted to the National Radiology Data Registry (NRDR) Dose Index Registry (DIR) with the [employer] (ACR). RADIATION OPTIMIZATION: All CT scans at this facility use at least one of these dose optimization te chniques: automated exposure control; mA and/or kV adjustment per patient size (includes targeted exa ms where dose is matched to clinical indication); or iterative reconstruction.
[2023-04-26 15:19] LABS: Bilirubin Negative (Negative); Blood Small (Negative); Clarity Clear (Clear); Glucose Negative (Negative); Ketones Negative (Negative); Leukocyte Esterase Negative (Negative); Nitrite Negative (Negative); Specific Gravity 1.025 (1.005-1.025)
--- NOTE | 2023-04-26 15:25 | DI.RAD_ITS ---
Exam(s) XR CHEST 2V PA LATERAL EXAM: XR CHEST 2V PA LATERAL CLINICAL HISTORY: Shortness of breath TECHNIQUE: 2D digital imaging was performed of the chest. Two images were obtained. PA and lateral views were obtained. COMPARISON: CR XR CHEST 2V PA LATERAL from 12/10/2022 CR,XR XR PORTABLE CHEST AP POST LINE from 01/08/2023 FINDINGS: MEDIASTINUM: Normal. HEART: Normal. PULMONARY VASCULATURE: Normal. LUNGS: Stable scarring is seen in the lungs. No focal consolidating infiltrates are present. PLEURAL SPACE: No pleural effusion or pneumothorax. BONE:Within normal limits for the patient's age. There is an old lower thoracic compression fracture deformity. Sternal wires are in place. OTHER FINDINGS:Normal. IMPRESSION: No acute pulmonary findings. DATA REPOSITORY: RADIATION DOSE DELIVERED:
[2023-04-26 15:39] LABS: Bacteria Negative HPF (Negative); C & S Indicated? No; Casts Negative LPF (Negative); Crystals Negative HPF (Negative); Epithelial Cells Rare HPF (Negative); Mucus Negative (Negative); WBC 0-2 HPF (0-5)
[2023-04-26] MEDS: Normal Saline - Diluent 50 ML VIAL IJ (15:42)
[2023-04-26] MEDS: Omnipaque 350 MG/ML 100 ML BTL IJ (15:43)
[2023-04-26] MEDS: cefTRIAXone 2 GM/50 ML BAG IVPB (16:13)
--- NOTE | 2023-04-26 17:31 | NUR.NOTE ---
Referral faxed to [facility]rology for right UVJ stone; within 1 week. Nursing Note:
== END 2023-04-26 17:41 | disposition home or self-care (01) ==
PROVIDERS: Emergency Provider Emergency Medicine; PCP Nurse Practitioner Family
DX: N13.2 Hydronephrosis with renal and ureteral calculous obstruction (principal); N40.1 Benign prostatic hyperplasia with lower urinary tract symptoms; R35.0 Frequency of micturition; I10 Essential (primary) hypertension; E11.9 Type 2 diabetes mellitus without complications; Z86.73 Personal history of transient ischemic attack (TIA), and cerebral infarction without residual deficits; Z79.84 Long term (current) use of oral hypoglycemic drugs; Z87.891 Personal history of nicotine dependence; Z20.822 Contact with and (suspected) exposure to COVID-19
CPT/HCPCS: 71275; 74177; 80053; 87637; 93005; 96365; 96375; 99285; 71046; 81003; 81015; 84484; 85025; 85379; 93010; 99284; J3010; J3490

== ENCOUNTER → 2023-05-09 10:32 | Outpatient (BNVA) | payer MEDICARE, SELFPAY | PROVIDERS: PCP Nurse Practitioner Family; Referring Provider Nurse Practitioner Family; Visit Provider Physician Assistant Surgical | DX: J44.9 Chronic obstructive pulmonary disease, unspecified (principal); J47.9 Bronchiectasis, uncomplicated; R91.1 Solitary pulmonary nodule | CPT/HCPCS: 99214 ==

== ENCOUNTER → 2023-05-19 12:54 | Outpatient (BNVA) | payer MEDICARE, SELFPAY | PROVIDERS: PCP Nurse Practitioner Adult Health; Referring Provider Nurse Practitioner Family; Visit Provider Nurse Practitioner Gerontology | DX: N20.1 Calculus of ureter (principal) | CPT/HCPCS: 99214 ==

== ENCOUNTER → 2023-06-08 12:27 | Outpatient (CLI) | payer MEDICARE, SELFPAY ==
--- NOTE | 2023-06-08 11:45 | DI.RAD_ITS ---
Exam(s) XR LUMBAR SPINE COMPLETE EXAM: XR LUMBAR SPINE COMPLETE CLINICAL HISTORY: pain in lower back and left hip, bilateral sciatica, G89.29 chronic pain. TECHNIQUE: 2D digital imaging was performed. Five views. COMPARISON: CR XR LUMBAR SPINE COMP W FLEX/EX from 10/13/2022 FINDINGS: Posterior fusion rods are now seen spanning L3 through L5. Laminectomy defects noted at these levels . Moderate narrowing of the L2-3 and L5-S1 disc spaces. Severe narrowing of the T12-L1 and L1-2 dis c spaces. Stable compression fracture of T11. No new compression fractures. No spondylolysis or sp ondylolisthesis. Aorta is calcified and normal in diameter.. IMPRESSION: Postsurgical and degenerative changes. DATA REPOSITORY: RADIATION DOSE DELIVERED:
--- NOTE | 2023-06-08 12:10 | DI.RAD_ITS ---
Exam(s) XR HIP LT COMPLETE AP PELVIS EXAM: XR HIP LT COMPLETE AP PELVIS CLINICAL HISTORY: lower back and left hip, chronic pain, M54.41, M54.42, bilateral sciatica. TECHNIQUE: 2D digital imaging was performed. Two views. COMPARISON: CT CT CHEST PE ABD PELVIS W from 04/26/2023 FINDINGS: BONES: No acute fracture is present. No bony destructive lesion is seen. Hardware lower lumbar spin e. JOINTS: No dislocation present. Mild bilateral hip joint space narrowing. Mild bilateral acetabula r spurring. Mild spurring at the SI joints. SOFT TISSUE: Vascular calcifications IMPRESSION: [id number] degenerative changes of both hips. DATA REPOSITORY: RADIATION DOSE DELIVERED:
== END ==
PROVIDERS: PCP Nurse Practitioner Adult Health; Visit Provider Physician Assistant
DX: M16.0 Bilateral primary osteoarthritis of hip (principal); M54.41 Lumbago with sciatica, right side; M54.42 Lumbago with sciatica, left side; Z98.890 Other specified postprocedural states
CPT/HCPCS: 72110; 73502

== ENCOUNTER 2023-06-11 05:30 | Emergency (ER) | payer MEDICARE, SELFPAY ==
[2023-06-11 05:38] VITALS: BP 179/128; PULSE 73; RESP 16; TEMP 36.8; O2SAT 99
--- NOTE | 2023-06-11 05:45 | ED.GENADUL_ITS ---
Discharge Plan Disposition Patient Disposition: Home Condition: Good Discharge Details Clinical Impression: Sciatic pain Primary Care Provider: Jennifer Ruiz ED Provider: Rossana Peguero Home Meds and New Rx's Prescriptions: New oxycodone 5 mg tablet 5 mg PO Q8H PRNQty: 10 0RF No Action magnesium oxide 500 mg capsule 500 mg PO DAILY Qty: 90 3RF acetaminophen 500 mg tablet 1,000 mg PO TID PRN chlorhexidine gluconate [Hibiclens] 4 % liquid 1 applic topical ONCE PRN (Reason: Tinea) Patient Comments: Pt states not taking - ML 04/26/23 Rx Instructions: as a single dose metoprolol succinate 25 mg tablet extended release 24 hr 25 mg PO DAILY Qty: 90 3RF methylprednisolone [Medrol (Pastor)] 4 mg tablets,dose pack See Rx Instructions PO PER PKG DIR Qty: 21 0RF Rx Instructions: PO PER PKG DIR acetylcysteine [NAC] 600 mg capsule 600 mg PO BID Qty: 60 7RF gabapentin 300 mg capsule 300 mg PO TID Qty: 270 3RF methylprednisolone [Medrol (Pastor)] 4 mg tablets,dose pack See Rx Instructions PO DIRECTED Qty: 21 0RF Rx Instructions: 1 pack PO as directed; aspirin 81 MG tablet,delayed release (DR/EC) 81 mg PO DAILY (DME) Aerochamber Plus Flow-Vu,S Msk 1 EACH spacer 1 ea Miscellaneous PRN polyethylene glycol 3350 [GlycoLax] 527 GM powder 17 g PO DAILY (DME) lancets [OneTouch Delica Lancets] 1 EACH misc 1 ea Miscellaneous DAILY Qty: 100 Rx Instructions: E11.9 to maintain A1C less than 7.0 albuterol sulfate [ProAir HFA] 8.5 GM HFA aerosol inhaler 1 - 2 puff Inhalation Q4-6H PRN Qty: 1 3RF Rx Instructions: DISPENSE ALBUTEROL INHALER BRAND COVERED BY INSURANCE cholecalciferol (vitamin D3) 25 mcg (1,000 unit) tablet 1,000 unit PO BID (DME) nebulizer and accessories See Rx Instructions .Route .MEDSUPPLY Qty: 1 0RF Rx Instructions: As directed atorvastatin 80 mg tablet 80 mg PO DAILY Qty: 90 3RF (DME) Blood Glucose Test Strip See Rx Instructions .ROUTE .MEDSUPPLY Qty: 100 3RF Rx Instructions: As directed to check daily morning fasting blood glucose. No insulin. Dispense covered brand. albuterol sulfate 2.5 mg /3 mL (0.083 %) solution for nebulization 2.5 mg inhalation Q4H PRN (Reason: shortness of breath or wheezing) Qty: 180 3RF fluticasone furoate-vilanterol [Breo Ellipta] 100-25 mcg/dose blister with device 1 ea Inhalation DAILY Qty: 3 12RF Rx Instructions: 3 month supply Incruse Ellipta 62.5 mcg/actuation blister with device 62.5 mcg Inhalation DAILY Qty: 3 12RF Rx Instructions: 3 month supply pantoprazole 20 mg tablet,delayed release (DR/EC) See Rx Instructions .ROUTE .COMPLEX Qty: 90 3RF Dose Instruction: TAKE 1 TABLET EVERY MORNINGAT LEAST 30 TO 60 MINUTES BEFORE FIRST MEAL OF THE DAY Rx Instructions: TAKE 1 TABLET EVERY MORNINGAT LEAST 30 TO 60 MINUTES BEFORE FIRST MEAL OF THE DAY Trelegy Ellipta 100-62.5-25 mcg Blister With Device 1 inh INHALATION DAILY ipratropium-albuterol 0.5 mg-3 mg(2.5 mg base)/3 mL Solution For Nebulization 3 ml INHALATION PRN PRN cyclobenzaprine 10 mg tablet 10 mg PO TID PRNQty: 20 0RF Patient Comments: Pt states not taking - ML 04/26/23 primidone 50 mg tablet 50 mg PO QHS MDD 150 mg Qty: 270 3RF citalopram [Celexa] 40 mg tablet 40 mg PO DAILY Discharge Instructions Instructions: Sciatica (ED) Additional Instructions: Take tylenol and ibuprofen over the counter for pain; follow the directions on the bottle. You can take oxycodone if your pain is severe, a prescription has been sent to your pharmacy. Keep your PT appointment. Call your primary care doctor on Tuesday to schedule an appointment for next week to follow up on your visit today. Return to the emergency department for new or worsening symptoms including inability to walk, severe uncontrolled pain, numbness in your leg, weakness, or if you have any other concerns. Referrals: Jennifer Ruiz NP [Primary Care Provider] - Medical Decision Making 82yo M with hx of sciatica, CVA, DM, HTN, HLD, COPD, CAD, spinal fusion in December, presenting for worsening sciatica x one month. No trauma. Radicular low back pain radiating into both hips, worse on left. Started on medrol dose pack 3 days ago without improvement. No neurologic symptoms, no red flags for back pain. Hypertensive on arrival, vital signs otherwise reassuring. Normal neurologic exam. Express care note and xrays from 06/08 reviewed, xray reads below, no acute findings/fracture/dislocation. Will not repeat imaging today, no indication for labs based on history or exam. Will treat symptoms with toradol, oxycodone 5mg, lidocaine patch, flexeril. Took tylenol [employer]. On reassessment he reports his pain is much improved. Has PT appointment scheduled for next week. Will discharge with short course of oxycodone, advised to fo llowup with PCP. Opiates not without risk in this age group however his symptoms are borderline debilitating and have not responded to steroids. Discharged home; discharge instructions including return precautions were reviewed with patient who verbalized understanding. All questions were answered and they are in full agreement with the plan. Medical Records Medical records reviewed: Yes I reviewed the patient's medical records. Imaging Data Radiologic Study: Imaging: X-Ray Radiologist's impression: IMPRESSION: [id number] degenerative changes of both hips. Radiologic Study #2: Imaging: X-Ray Radiologist's impression: FINDINGS: Posterior fusion rods are now seen spanning L3 through L5. Laminectomy defects noted at these levels. Moderate narrowing of the L2-3 and L5-S1 disc spaces. Severe narrowing of the T12-L1 and L1-2 disc spaces. Stable compression fracture of T11. No new compression fractures. No spondylolysis or spondylolisthesis. Aorta is calcified and normal in diameter.. IMPRESSION: Postsurgical and degenerative changes. HPI General Mode of arrival: ambulatory . Date/Time Provider Initiated Documentation: 06/11/23 05:41 . Limitations to Documentation: no limitations . Information obtained by: patient and old records reviewed . HPI Narrative: 82yo M with hx of sciatica, CVA, DM, HTN, HLD, COPD, CAD, presenting for worsening sciatic pain. Hx spinal fusion in December. Pain has been getting worse over the past month, tonight unable to sleep. Pain is burning, radiates down both hips but is worse on the left. Able to ambulate but it is painful. Seen at walk-in clinic on Tuesday where he was started on medrol dosepak medicati on. Seemed to help yesterday but today pain became more severe. No numbness, tingling, or weakness. No bowel/bladder issues. No falls. Systemically well, no fevers, chills, nausea, vomiting. He is otherwise in his usual state of health. Related Data Home Medications Medication Instructions Recorded Confirmed aspirin 81 mg tablet,delayed 81 mg PO DAILY 09/28/12 06/11/23 release inhalational spacing device 09/28/12 06/08/23 (Aerochamber Plus Flow-Vu,Small Mask) lancets 33 gauge (OneTouch [facility] ea 10/13/16 06/08/23 Lancets) polyethylene glycol 3350 17 17 g PO DAILY 10/13/16 06/08/23 gram/dose oral powder (GlycoLax) albuterol sulfate 90 mcg/actuation 1 - 2 puff inhalation Q4-6H PRN ##1 04/18/17 06/11/23 aerosol inhaler (ProAir HFA) magnesium oxide 500 mg capsule 500 mg PO DAILY #90 tab-caps 11/02/18 06/11/23 cholecalciferol (vitamin D3) 25 1,000 unit PO BID 11/01/19 06/11/23 mcg (1,000 unit) tablet acetaminophen 500 mg tablet 1,000 mg PO TID PRN 07/15/21 06/11/23 acetylcysteine 600 mg capsule (NAC) 600 mg PO BID #60 caps 10/20/21 06/11/23 nebulizer and accessories #1 ea 04/16/22 06/08/23 cyclobenzaprine 10 mg tablet 10 mg PO TID PRN #20 tabs 07/21/22 06/11/23 atorvastatin 80 mg tablet 80 mg PO DAILY #90 tabs 10/13/22 06/11/23 blood sugar diagnostic (Blood #100 ea 10/13/22 06/08/23 Glucose Test strips) metoprolol succinate 25 mg 25 mg PO DAILY #90 tab-caps 10/21/22 06/08/23 tablet,extended release 24 hr primidone 50 mg tablet 50 mg PO QHS #270 tabs 12/29/22 06/08/23 fluticasone fur. 100 mcg-umeclid 1 inh inhalation DAILY 12/31/22 06/11/23 62.5 mcg-vilant 25 mcg inhalat.powder (Trelegy Ellipta) ipratropium 0.5 mg-albuterol 3 mg 3 ml inhalation PRN PRN 12/31/22 06/11/23 (2.5 mg base)/3 mL nebulization soln albuterol sulfate 2.5 mg/3 mL 2.5 mg (3 mL) inhalation Q4H PRN 01/05/23 06/11/23 (0.083 %) solution for nebulization shortness of breath or wheezing #180 vials gabapentin 300 mg capsule 300 mg PO TID #270 caps 01/19/23 06/11/23 fluticasone furoate 100 1 ea inhalation DAILY #3 units 02/07/23 06/11/23 mcg-vilanterol 25 mcg/dose inhalation powder (Breo Ellipta) umeclidinium 62.5 mcg/actuation 62.5 mcg inhalation DAILY #3 units 02/07/23 06/08/23 blister powder for inhalation (Incruse Ellipta) chlorhexidine gluconate 4 % 1 applic topical ONCE PRN Tinea 04/06/23 06/08/23 topical liquid (Hibiclens) citalopram 40 mg tablet (Celexa) 40 mg PO DAILY 04/26/23 06/11/23 methylprednisolone 4 mg tablets in See Rx Instructions PO DIRECTED 05/09/23 06/11/23 a dose pack (Medrol (Pastor)) #21 dose pk pantoprazole 20 mg tablet,delayed See Rx Instructions .Route 06/06/23 06/08/23 release .COMPLEX #90 tabs methylprednisolone 4 mg tablets in See Rx Instructions PO PER PKG DIR 06/08/23 06/08/23 a dose pack (Medrol (Pastor)) #21 dose pk oxycodone 5 mg tablet 5 mg PO Q8H PRN #10 tabs 06/11/23 Previous Rx's Medication Instructions Recorded albuterol sulfate 90 mcg/actuation 1 - 2 puff inhalation Q4-6H PRN ##1 04/18/17 aerosol inhaler (ProAir HFA) magnesium oxide 500 mg capsule 500 mg PO DAILY #90 tab-caps 11/02/18 acetylcysteine 600 mg capsule (NAC) 600 mg PO BID #60 caps 10/20/21 nebulizer and accessories #1 ea 04/16/22 cyclobenzaprine 10 mg tablet 10 mg PO TID PRN #20 tabs 07/21/22 atorvastatin 80 mg tablet 80 mg PO DAILY #90 tabs 10/13/22 blood sugar diagnostic (Blood #100 ea 10/13/22 Glucose Test strips) metoprolol succinate 25 mg 25 mg PO DAILY #90 tab-caps 10/21/22 tablet,extended release 24 hr primidone 50 mg tablet 50 mg PO QHS #270 tabs 12/29/22 albuterol sulfate 2.5 mg/3 mL 2.5 mg (3 mL) inhalation Q4H PRN 01/05/23 (0.083 %) solution for nebulization shortness of breath or wheezing #180 vials gabapentin 300 mg capsule 300 mg PO TID #270 caps 01/19/23 fluticasone furoate 100 1 ea inhalation DAILY #3 units 02/07/23 mcg-vilanterol 25 mcg/dose inhalation powder (Breo Ellipta) umeclidinium 62.5 mcg/actuation 62.5 mcg inhalation DAILY #3 units 02/07/23 blister powder for inhalation (Incruse Ellipta) methylprednisolone 4 mg tablets in See Rx Instructions PO DIRECTED 05/09/23 a dose pack (Medrol (Pastor)) #21 dose pk pantoprazole 20 mg tablet,delayed See Rx Instructions .Route 06/06/23 release .COMPLEX #90 tabs methylprednisolone 4 mg tablets in See Rx Instructions PO PER PKG DIR 06/08/23 a dose pack (Medrol (Pastor)) #21 dose pk oxycodone 5 mg tablet 5 mg PO Q8H PRN #10 tabs 06/11/23 Allergies Allergy/AdvReac Type Severity Reaction Status Date / Time codeine AdvReac Unknown Verified 06/11/23 05:44 General Stated Complaint: Nk/Back Pain YUE: 3 Review of Systems Narrative: see HPI PFSH All Active Problems (Updated 06/11/23 @ 07:33 by Rossana Peguero MD) Sciatic pain (Acute) Hip pain (Acute) Vancomycin resistant enterococcus culture positive (Acute) Occipital cerebral infarction (Acute) CVA (cerebral vascular accident) (Chronic) Weakness (Acute) Degenerative spondylolisthesis (Acute) 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) Most recent MRI 08/25/2022 showing stenosis; Spine consult 11/01/2022 Degenerative joint disease (DJD) of lumbar spine (Acute) Effusion, right knee (Acute) Arthritis of right glenohumeral joint (Acute) Degenerative joint disease of right knee (Acute) Depo-Medrol injection: 05/07/2022 Bronchiectasis (Acute) Adrenal nodule (Acute) Rib pain on left side (Acute) Trochanteric bursitis of both hips (Chronic) Non-alcoholic fatty liver disease (Chronic 09/29/12) Type 2 diabetes mellitus (Chronic) Dx: 10/2018 Obesity (BMI 30-39.9) (Chronic) Advance directive in chart (Chronic 04/22/15) On-file with [facility] as of 04/22/2015 Sensorineural hearing loss, bilateral (Chronic 08/29/17) Osteoarthritis of knee (Chronic 08/13/13) Hypomagnesemia (Chronic 10/07/17) Hyperlipidemia, unspecified (Chronic 07/09/11) LDL GOAL 100 Gastroesophageal reflux disease (Chronic 07/09/11) Essential tremor (Chronic 07/27/11) Essential hypertension (Chronic 07/09/11) GOAL <130/80 Depression (Chronic 06/04/14) Long-term Celexa Rx Chronic obstructive pulmonary disease (COPD) (Chronic 09/29/12) MILD, 08/2012 PFTs FEV1 2.06 (70% pred and FVC), no response to bronchodilator; 11/17/15 bronchoscopy [facility]: NEG for [employer], fungus, & bacteria; cytology NEG for malignancy Cardiomyopathy (Chronic 04/10/12) BPH (benign prostatic hyperplasia) (Chronic 04/10/12) ASCVD (arteriosclerotic cardiovascular disease) (Chronic) S/p 5 vessel CABG 1995 Echo 09/27/2014 with normal LVEF Medical History Actinic keratosis History of squamous cell carcinoma Tobacco use disorder Congenital calculus of kidney (07/09/11) IFG (impaired fasting glucose) Cataract Surgical History S/P laminectomy (12/22/22) L3-5. Done at [facility] by Jimmy Cabrera MD Status post coronary artery bypass graft (~1995) Extraction of cataract Arthroplasty of knee Family History Father , CVA at age 80. Essential tremor Heart disease Hypertension Sister Hypertensive disorder, systemic arterial Heart disease Brother , [place] at age 78. Heart disease Essential tremor Brother Heart disease Daughter Essential tremor Social History Smoking/Tobacco Use Status: Former Tobacco Use Tobacco: How many years used: 30 Smoking risk assessment performed?: Yes Alcohol Intake: never Drug use: Never Substance use type: does not use Adopted: No Caregiver/Support person: No Foster care: No Household members: spouse Housing: house Number of Children: 7 number of grandchildren: 25 Communication Needs: Hard of Hearing Education Level: high school Do you need help understanding health information?: Rarely current occupation: [employer] Pets and animals: Yes Pets and animals: dog(s) Sexually active: No Do you think of yourself as: straight/heterosexual Current gender identity: male What is your relationship status?: How often do you talk on the phone with friends or family?: three or more times per week How often do you get together with friends or relatives?: once per week Do you belong to any clubs or organized social groups?: yes Panel score (0-1 are the most socially isolated patients): 3 What type of physical activity do you participate in: walking and other Details: House work Duration: 15-30 minutes/day Frequency: 5-6 times per week Lindy/Latter Day: Quaker Seatbelt use: always Drive intox or ride w/intox port cdl a driver: No Water heater temp set <120 deg: Yes Working smoke detector in home: Yes Fire extinguisher in home: Yes Carbon monox detector in home: Yes Do you feel safe at home: Yes Do you feel safe in your relationship?: Yes Additional Social history: He has 5 step-children in addition to 3 biological. Exam Narrative Exam Narrative: General: Alert, well appearing, well nourished, in no acute distress. Head: Normocephalic, atraumatic Neck: Trachea midline, Neck supple. Cardiac: RRR, no murmurs appreciated Resp: No respiratory distress. CTAB. Abd: Soft, non-distended, nontender : No suprapubic tenderness. No CVA tenderness. Back/Hip: Midline low lumbar and sacral tenderness. Left hip mildly TTP. Extremities: No deformities. No peripheral edema. Neuro: GCS 15. Motor- 5/5 strength symmetric bilateral upper and lower extremities Sensation- Intact to light touch and symmetric multiple dermatomes including upper and lower extremities Gait/station: Normal stance. No truncal ataxia. Steady gait with equal normal steps. No foot drop. Course Vital Signs Vital signs: Vital Signs Temperature 36.8 C 06/11/23 05:38 Pulse 73 06/11/23 05:38 Respiratory Rate 16 06/11/23 05:38 Blood Pressure 179/128 H 06/11/23 05:38 Pulse Oximetry 99 06/11/23 05:38 Temperature 36.8 C 06/11/23 05:38 Temperature Source Tympanic 06/11/23 05:38 Pulse 73 06/11/23 05:38 Respiratory Rate 16 06/11/23 05:38 Respiratory Effort Normal 06/11/23 05:43 Blood Pressure 179/128 H 06/11/23 05:38 Blood Pressure Position Sitting 06/11/23 05:38 Pulse Oximetry 99 06/11/23 05:38 Oxygen Delivery Method Room Air 06/11/23 05:38 Oxygen Flow Rate 0 06/11/23 05:38 Pain Level 9 06/11/23 05:38
[2023-06-11] MEDS: Ketorolac 15 MG/ML VIAL IM (06:06)
[2023-06-11] MEDS: Cyclobenzaprine 10 MG TAB 5 MG PO (06:06)
[2023-06-11] MEDS: Lidocaine 5% Patch 2 PATCH TP (06:06)
[2023-06-11] MEDS: oxyCODONE 5 MG TAB PO (06:07)
[2023-06-11 07:27] VITALS: BP 168/82; PULSE 82; RESP 20; TEMP 37; O2SAT 99
--- NOTE | 2023-06-11 07:28 | SUR.PHASEI ---
Pt ambulated to bathroom area and back with appropriate gait. States some tenderness still but pain has improved greatly. New VS documented. Provider aware.
== END 2023-06-11 08:18 | disposition home or self-care (01) ==
PROVIDERS: Emergency Provider Student in an Organized Health Care Education/Training Program; PCP Nurse Practitioner Adult Health
DX: M54.32 Sciatica, left side (principal)
CPT/HCPCS: 96372; 99283; 99284; J1885

== ENCOUNTER → 2023-07-05 01:47 | Outpatient (CLI) | payer MEDICARE, SELFPAY ==
--- NOTE | 2023-07-05 07:35 | DI.CT_ITS ---
Exam(s) CT LUMBAR SPINE WO EXAM: CT LUMBAR SPINE WO CLINICAL HISTORY: bilateral leg numbness M54.41/M54.42 lumbago with scitica,G89.29 pain. TECHNIQUE: Imaging Protocol: Axial computed tomography images with coronal and sagittal reformatted images were created and reviewed COMPARISON: CT CT LUMBAR SPINE WO from 07/21/2022 CR XR CHEST 2V PA LATERAL from 04/26/2023 CR XR LUMBAR SPINE COMPLETE from 06/08/2023 FINDINGS: Bones: There is posterior fusion hardware L3-L5, inclusive, consisting of posterior fusion rods supp orted by bilateral intrapedicular screws at all 3 levels and the screws appear to be in satisfactory position relative to the superior endplates of these vertebral bodies. There is no hardware fracture evident. Bone graft material is also seen bilaterally at these 3 levels and there has been removal of posterior osseous elements at these 3 levels.. No evidence of acute fractures nor listhesis.Wedge compression fracture of T11 is again noted, unchanged. INDIVIDUAL LEVELS: T12-L1:Advanced disc space narrowing. No disc herniation. Central canal dimensions lower normal. F acets unremarkable. No prominent foraminal stenosis. L1-2: This level exhibits advanced disc space narrowing with vacuum phenomenon and Modic type 3 scle rotic sub endplate marrow changes on both sides of this disc space. There is also mild retrolisthesi s of L1 upon L2. There is central spinal canal stenosis-moderate at this level. This is related to posterior annular bulging and the retrolisthesis of approximately 4 millimeters. There does not appe ar to be an additional focal disc herniation. L2-3: This is 1 level above the fusion. There is moderate disc space narrowing evident. More so po steriorly than anteriorly. There is severe central spinal canal stenosis at this level related to re latively symmetrical broad annular bulging, short AP dimensions of the pedicles and some degenerative changes in the facet joints bilaterally. L3-4: There has been surgical removal of posterior osseous elements at this level and there are bila teral intrapedicular screws at this level. The amount of artifact makes it difficult to assess for d isc herniations. However, there is no central canal stenosis as the posterior osseous elements inclu ding both laminae a and the spinous process have been removed.. No prominent foraminal stenosis. L4-5: This level is also fused. There is mild anterolisthesis of L4 upon L5, approximately 3 mm. T here is broad annular bulging but no central canal stenosis as the posterior osseous elements have be en removed. There is mild-moderate bilateral foraminal stenosis at this level. L5-S1: This level is not fused. The lower most screws are within the bilateral L5 pedicles. There is relative preservation of disc height. There is vacuum phenomenon within the disc space. There is moderate central spinal canal stenosis at this level due to broad annular bulging, short AP dimensio ns of the pedicles and moderate degenerative changes in the facet joints bilaterally. There is no li sthesis at this level. However, there are subtle pars defects at L5 evident. The visualized sacroiliac joints and sacrum appear unremarkable. PARASPINAL SOFT TISSUES: Visualized paraspinal tissues appear unremarkable. Incidentally noted are nonobstructive calculi in both kidneys is also a small benign cyst in the part ially visualized left kidney. IMPRESSION: 1. Multilevel fusion L3-L5, inclusive. 2. Multilevel spinal canal stenosis at the levels above and below the fusion as described above. 3. Pars defects versus fractures at L5 level bilaterally. Other findings as above. RADIATION DOSE DELIVERED: Total DLP DATA REPOSITORY: All CT scans at this facility are submitted to the National Radiology Data Registry (NRDR) Dose Index Registry (DIR) with the [employer] (ACR). RADIATION OPTIMIZATION: All CT scans at this facility use at least one of these dose optimization te chniques: automated exposure control; mA and/or kV adjustment per patient size (includes targeted exa ms where dose is matched to clinical indication); or iterative reconstruction.
== END ==
PROVIDERS: PCP Nurse Practitioner Adult Health; Visit Provider Emergency Medicine
DX: M43.26 Fusion of spine, lumbar region (principal)
CPT/HCPCS: 72131

== ENCOUNTER → 2023-07-08 10:37 | Outpatient (BNVA) | payer MEDICARE, SELFPAY | PROVIDERS: PCP Nurse Practitioner Adult Health; Referring Provider Nurse Practitioner Adult Health | DX: M70.62 Trochanteric bursitis, left hip (principal); M54.16 Radiculopathy, lumbar region | CPT/HCPCS: 20610; J1040 ==

== ENCOUNTER → 2023-11-08 14:49 | Outpatient (BNVA) | payer MEDICARE, SELFPAY | PROVIDERS: PCP Nurse Practitioner Adult Health; Referring Provider Nurse Practitioner Family; Visit Provider Student in an Organized Health Care Education/Training Program | DX: J44.1 Chronic obstructive pulmonary disease with (acute) exacerbation (principal); J47.9 Bronchiectasis, uncomplicated; R91.1 Solitary pulmonary nodule | CPT/HCPCS: 99214 ==

== ENCOUNTER → 2023-11-25 11:16 | Outpatient (BNVA) | payer MEDICARE, SELFPAY | PROVIDERS: PCP Nurse Practitioner Adult Health; Referring Provider Nurse Practitioner Adult Health | DX: M19.011 Primary osteoarthritis, right shoulder (principal) | CPT/HCPCS: 20611; J1010 ==

== ENCOUNTER → 2023-12-09 08:49 | Outpatient (BNVA) | payer MEDICARE, SELFPAY | PROVIDERS: PCP Nurse Practitioner Adult Health; Referring Provider Nurse Practitioner Adult Health | DX: M70.61 Trochanteric bursitis, right hip (principal) | CPT/HCPCS: 20610; J1010 ==

== ENCOUNTER 2024-02-19 15:32 | Inpatient (IN) | payer OTHER, MEDICARE, SELFPAY ==
[2024-02-19] VITALS (35 sets, daily range): BP systolic 113–141; BP diastolic 42–58; PULSE 81–99; RESP 2–37; TEMP 36.2–37; O2SAT 91–98
--- NOTE | 2024-02-19 15:30 | RT.EKG_ITS ---
APPROVED REPORT Exam: Resting ECG Reason for Exam: sob Patient Location: E HR:81 bpm ECG Measurements Heart Rate 81 AXIS AR 193 P 39 QRSd 124 QRS -11 QT 401 T 27 QTc 465 Conclusion Sinus rhythm...normal P axis, V-rate 60- 99 Nonspecific intraventricular conduction delay...QRSd >115mS, not LBBB/RBBB Inferior infarct, old...Q >35mS, II III aVF Probable anterior infarct, old...Q >40mS, V2-V5 sinus rhythm, left axis, non ischemic
[2024-02-19 16:08] LABS: Lactate 1.4 mmol/L (0.6-1.4)
[2024-02-19 16:10] LABS: Abs Immature Grans 0.06 10^3/uL (0.0-0.06); Absolute Eosinophil Count 0.11 10^3/uL (0.0-0.7); Absolute Lymphocyte Count 0.67 10^3/uL (1.2-3.4); Absolute Monocyte Count 0.85 10^3/uL (0.1-0.8); Absolute Neutrophil Count 14.32 10^3/uL (1.2-6.7); Basophils % 0.2 %; Eosinophils % 0.7 %; HCT 41.6 % (40.0-50.0); Immature Grans % 0.4 %; Lymphocytes % 4.2 %; MCH 32.5 pg (27.0-33.0); MCHC 33.7 % (32.0-36.0); MCV 97 fL (80-95); MPV 9.7 fL (8.0-11.0); Monocytes % 5.3 %; Neutrophils % 89.2 %; Platelet Count 189 10^3/uL (130-400); RBC 4.31 10^6/uL (4.36-5.78); RDW 13.3 % (11.8-14.1); RDW-SD 48.4 fL; WBC 16.05 10^3/uL (4.4-10.8)
[2024-02-19 16:12] LABS: Absolute Basophil Count 0.03 10^3/uL (0.0-0.2)
[2024-02-19] MEDS: Albuterol/Ipratropium 3 ML UPD VIAL 6 ML UPD (16:15)
[2024-02-19] MEDS: methylPREDNISolone SUCC 125 MG VIAL 80 MG IVP (16:15)
--- NOTE | 2024-02-19 16:15 | DI.RAD_ITS ---
Exam(s) XR CHEST 2V PA LATERAL EXAM: XR CHEST 2V PA LATERAL CLINICAL HISTORY: rhonchi right, shortness of breath, leukocytosis TECHNIQUE: 2D digital imaging was performed. Two views. COMPARISON: CT CT CHEST PE ABD PELVIS W from 04/26/2023 FINDINGS: Exam is limited by a under penetration and multiple leads coiled over the chest. HEART: Normal size. Aorta: Not dilated. PULMONARY VASCULATURE: Normal. MEDIASTINUM: Unremarkable. LUNGS: Clear. PLEURAL SPACE: No pleural effusion or pneumothorax. BONE:Sternal wires. Stable T12 compression fracture. SOFT TISSUES: Unremarkable. IMPRESSION: No acute abnormality. DATA REPOSITORY: RADIATION DOSE DELIVERED:
[2024-02-19 16:31] LABS: COVID-19 PCR Negative (Negative); Influenza A PCR Negative (Negative); Influenza B PCR Negative (Negative); RSV PCR Negative (Negative)
[2024-02-19 16:33] LABS: Source Nasopharynx
[2024-02-19 16:38] LABS: ALT 21 U/L (16-63); AST 17 U/L (15-37); Albumin 4.2 g/dL (3.4-5.0); Alkaline Phosphatase 106 U/L (46-116); Anion Gap 7.8 mmol/L (3-11); BUN 19 mg/dL (7-18); Bilirubin, Total 1.26 mg/dL (0.2-1.0); CO2 28.2 mmol/L (21.0-32.0); CREATININE 1.1 mg/dL (0.70-1.30); Calcium 9.2 mg/dL (8.5-10.1); Chloride 101 mmol/L (98-107); Estimated GFR 65.79 (mL/min/1.73m2); Glucose 144 mg/dL (74-106); NT-proBNP 687 pg/mL (<300); Sodium 137 mmol/L (136-145); Total Protein 7.2 g/dL (6.4-8.2); Troponin I < 50 ng/L (< or =60)
[2024-02-19 16:48] LABS: Bilirubin Negative (Negative); Blood Negative (Negative); Clarity Clear (Clear); Glucose Negative (Negative); Ketones Negative (Negative); Leukocyte Esterase Negative (Negative); Nitrite Negative (Negative); Specific Gravity 1.025 (1.005-1.025); pH 5.5 (5-8)
[2024-02-19] MEDS: Albuterol/Ipratropium 3 ML UPD VIAL UPD ×2 (17:42→21:15)
[2024-02-19] MEDS: Doxycycline Hyclate 100 MG CAP PO (18:06)
--- NOTE | 2024-02-19 18:25 | DI.VRAD_ITS ---
PROCEDURE INFORMATION: Exam: XR Chest Exam date and time: 02/19/2024 4:52 PM Age: 83 years old Clinical indication: Shortness of breath TECHNIQUE: Imaging protocol: Radiologic exam of the chest. Views: 2 views. COMPARISON: CT CHEST PE ABD PELVIS W 04/26/2023 3:56 PM FINDINGS: Lungs: Mild linear opacity in the left lower lung with low lung volumes, suggesting subsegmental atelectasis. Lungs are otherwise clear. Pleural spaces: Trace amount of pleural fluid or thickening along the pulmonary fissures. No pneumothorax. Heart/Mediastinum: Unremarkable. No cardiomegaly. Bones/joints: Moderate degenerative changes of the spine and shoulders. Sternotomy wires remain in place. IMPRESSION: Minimal left lower lobe atelectasis and persistent trace amount of pleural fluid or thickening as described. No significant consolidation. Dictated and Authenticated by: Andrew Ashton MD. Ordering:CICI Walker MD
[2024-02-19] MEDS: Acetaminophen 325 MG TAB 650 MG PO (18:36)
[2024-02-19] MEDS: cefTRIAXone 2 GM/50 ML BAG IVPB (18:36)
--- NOTE | 2024-02-19 18:50 | W.PM.HP.N ---
Date of service: 02/19/24 Time of Service: 18:50 Assessment and Plan Assessment and plan (1) Pneumonia: Status: Acute Assessment and plan: Pneumonia, with element of COPD. Will continue current antibiotic regimen of Rocephin/Doxy, continue steroids and updrafts, check Legionella urinary antigen and sputum Gram stain. Usual medications otherwise as is. Reviewed ADs, requests continuing DNR status. History of Present Illness History of Present Illness Chief Complaint: cough, SOB Narrative: 83 male with COPD, here with 2 days of cough and OSCAR. No CP. Did have chills this afternoon. Here in ER initially reported to be quite rhonchorous on right, diminished otherwise, and then developed temp tp 101 (verbal reprot). W/u of note for white count 16 and CXR showing definite infiltrate posteriorly on lateral view (formal report is negative). Patient given steroids, updrafts (which he says helped quite a bit) and started on Rocephin/Doxy. Viral swab triple negative. Staff report that restng sats are low 90s but drop to 80s with minimal activity. I was asked to evaluate for admission. Patient states he feels distinctly better but still quite SOB with activity. 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) Most recent MRI 08/25/2022 showing stenosis; Spine consult 11/01/2022 Degenerative joint disease (DJD) of lumbar spine (Acute) Effusion, right knee (Acute) Arthritis of right glenohumeral joint (Acute) POCUS INJECTION: 11/25/2023 Injection under fluoroscopy: 05/21/2022 Degenerative joint disease of right knee (Acute) Depo-Medrol injection: 05/07/2022 Bronchiectasis (Acute) Adrenal nodule (Acute) Rib pain on left side (Acute) Trochanteric bursitis of both hips (Chronic) Non-alcoholic fatty liver disease (Chronic 09/29/12) Type 2 diabetes mellitus (Chronic) Dx: 10/2018 Obesity (BMI 30-39.9) (Chronic) Advance directive in chart (Chronic 04/22/15) On-file with [facility] as of 04/22/2015 Sensorineural hearing loss, bilateral (Chronic 08/29/17) Osteoarthritis of knee (Chronic 08/13/13) Hypomagnesemia (Chronic 10/07/17) Hyperlipidemia, unspecified (Chronic 07/09/11) LDL GOAL 100 Gastroesophageal reflux disease (Chronic 07/09/11) Essential tremor (Chronic 07/27/11) Essential hypertension (Chronic 07/09/11) GOAL <130/80 Depression (Chronic 06/04/14) Long-term Celexa Rx; Wellbutrin started 12/2023 Chronic obstructive pulmonary disease (COPD) (Chronic 09/29/12) MILD, 08/2012 PFTs FEV1 2.06 (70% pred and FVC), no response to bronchodilator; 11/17/15 bronchoscopy [facility]: NEG for Af[employer], fungus, & bacteria; cytology NEG for malignancy Cardiomyopathy (Chronic 04/10/12) BPH (benign prostatic hyperplasia) (Chronic 04/10/12) ASCVD (arteriosclerotic cardiovascular disease) (Chronic) S/p 5 vessel CABG 1995 Echo 09/27/2014 with normal LVEF Medical History Drusen of macula of both eyes (~01/2024) 02/15/24 [facility] Actinic keratosis 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 Done at [facility] by Jimmy Cabrera MD Status post coronary artery bypass graft (~1995) Extraction of cataract Arthroplasty of knee Family History Father , CVA at age 80. Essential tremor Heart disease Hypertension Sister Hypertensive disorder, systemic arterial Heart disease Brother , [place] at age 78. Heart disease Essential tremor Brother Heart disease Daughter Essential tremor Social History Smoking/Tobacco Use Status: Former Tobacco Use Tobacco: How many years used: 30 Smoking risk assessment performed?: Yes Alcohol Intake: never Drug use: Never Substance use type: does not use Adopted: No Caregiver/Support person: No Foster care: No Household members: spouse Housing: house Number of Children: 7 number of grandchildren: 25 Communication Needs: Hard of Hearing Education Level: high school Do you need help understanding health information?: Rarely current occupation: Retired [employer] Pets and animals: Yes Pets and animals: dog(s) Sexually active: No Do you think of yourself as: straight/heterosexual Current gender identity: male What is your relationship status?: How often do you talk on the phone with friends or family?: three or more times per week How often do you get together with friends or relatives?: once per week Do you belong to any clubs or organized social groups?: yes Panel score (0-1 are the most socially isolated patients): 3 What type of physical activity do you participate in: walking and other Details: House work Duration: 15-30 minutes/day Frequency: 5-6 times per week Lindy/Jew: [employer] Seatbelt use: always Drive intox or ride w/intox jinriksha driver: No Water heater temp set <120 deg: Yes Working smoke detector in home: Yes Fire extinguisher in home: Yes Carbon monox detector in home: Yes Do you feel safe at home: Yes Do you feel safe in your relationship?: Yes Additional Social history: He has 5 step-children in addition to 3 biological. Meds Allergies and Home Medications Allergies Allergy/AdvReac Type Severity Reaction Status Date / Time codeine AdvReac Unknown Makes pts Verified 02/19/24 15:40 head feel crazy Home Medications ?Medication ?Instructions ?Recorded ?Confirmed ?Type aspirin 81 mg tablet,delayed 81 mg PO DAILY 09/28/12 02/19/24 History release inhalational spacing device 09/28/12 02/19/24 History (Aerochamber Plus Flow-Vu,Small Mask) lancets 33 gauge (OneTouch Delica #100 ea 10/13/16 02/19/24 History Lancets) polyethylene glycol 3350 17 17 g PO DAILY 10/13/16 02/19/24 History gram/dose oral powder (GlycoLax) albuterol sulfate 90 mcg/actuation 1 - 2 puff inhalation Q4-6H PRN ##1 04/18/17 02/19/24 Rx aerosol inhaler (ProAir HFA) magnesium oxide 500 mg capsule 500 mg PO DAILY #90 tab-caps 11/02/18 02/19/24 Rx cholecalciferol (vitamin D3) 25 1,000 unit PO BID 11/01/19 02/19/24 History mcg (1,000 unit) tablet acetaminophen 500 mg tablet 1,000 mg PO TID PRN 07/15/21 02/19/24 History acetylcysteine 600 mg capsule (NAC) 600 mg PO BID #60 caps 10/20/21 02/19/24 Rx nebulizer and accessories #1 ea 04/16/22 02/19/24 Rx ipratropium 0.5 mg-albuterol 3 mg 3 ml inhalation PRN PRN 12/31/22 02/19/24 History (2.5 mg base)/3 mL nebulization soln albuterol sulfate 2.5 mg/3 mL 2.5 mg (3 mL) inhalation Q4H PRN 01/05/23 02/19/24 Rx (0.083 %) solution for nebulization shortness of breath or wheezing #180 vials citalopram 40 mg tablet (Celexa) 40 mg PO DAILY 04/26/23 02/19/24 History primidone 50 mg tablet 50 - 150 mg (1 - 3 x 50 mg) PO QHS 07/05/23 02/19/24 Rx #270 tabs atorvastatin 80 mg tablet See Rx Instructions .Route 08/04/23 02/19/24 Rx .COMPLEX #90 tabs metoprolol succinate 25 mg 25 mg PO DAILY #90 tab-caps 08/07/23 02/19/24 Rx tablet,extended release 24 hr cyanocobalamin (vitamin B-12) 1 cap PO DAILY 11/08/23 02/19/24 History omega-3 fatty acids 1 cap PO DAILY 11/08/23 02/19/24 History fluticasone furoate 100 1 inh inhalation DAILY #90 ea 11/14/23 02/19/24 Rx mcg-vilanterol 25 mcg/dose inhalation powder (Breo Ellipta) umeclidinium 62.5 mcg/actuation 1 inh inhalation DAILY #90 ea 11/14/23 02/19/24 Rx blister powder for inhalation (Incruse Ellipta) blood sugar diagnostic (OneTouch #100 ea 12/30/23 02/19/24 Rx Ultra Test strips) bupropion HCl 150 mg 24 hr tablet, 150 mg PO QAM #90 tabs 01/10/24 02/19/24 Rx extended release pantoprazole 20 mg tablet,delayed See Rx Instructions .Route 01/23/24 02/19/24 Rx release .COMPLEX #90 tabs vit C 250 mg-vit E 90 mg-zinc 40 1 tab PO BID 02/16/24 02/19/24 History mg-copper 1 [id number] capsule (PreserVision AREDS-2) Exam Narrative Exam Narrative: 125/42, 90, 36.2 (last recorded; again, verbal from ER temp to 101); 25, 94% (RA, at rest). HEENT unremarkable; neck supple; lungs few bibasilar fine rales, clear otherwise; heart RRR; abdomen soft and NT; extremities trace pedal edema; neuro Ox3, lucid, moves all 4s Results Labs 02/19/24 16:00 02/19/24 16:00 Labs: Laboratory Results - last 24 hr 02/19/24 02/19/24 02/19/24 15:48 15:55 15:58 WBC RBC Hgb Hct MCV MCH MCHC RDW Plt Count MPV Immature Gran % Neutrophils % Lymphocytes % Monocytes % Eosinophils % Basophils % Nucleated RBC % Absolute Neutrophils Absolute Lymphocytes Absolute Monocytes Absolute Eosinophils Absolute Basophils VBG Lactate Sodium Potassium Chloride Carbon Dioxide Anion Gap BUN Creatinine Est GFR (CKD-EPI 2020) Glucose Calcium Total Bilirubin AST ALT Alkaline Phosphatase Troponin I NT-Pro-B Natriuret Pep Total Protein Albumin Urine Color Urine Clarity Urine pH Ur Specific Sims Urine Protein Urine Ketones Urine Blood Urine Nitrite Urine Bilirubin Urine Urobilinogen Ur Leukocyte Esterase Urine Glucose COVID-19 Source Nasopharynx Cancelled Cancelled SARS-CoV-2 (PCR) Negative Cancelled Cancelled Influenza Type A (PCR) Negative Cancelled Cancelled Influenza Type B (PCR) Negative Cancelled Cancelled RSV (PCR) Negative Cancelled Cancelled 02/19/24 02/19/24 02/19/24 16:00 16:13 16:42 WBC 16.05 H RBC 4.31 L Hgb 14.0 Hct 41.6 MCV 97 H MCH 32.5 MCHC 33.7 RDW 13.3 Plt Count 189 MPV 9.7 Immature Gran % 0.4 Neutrophils % 89.2 Lymphocytes % 4.2 Monocytes % 5.3 Eosinophils % 0.7 Basophils % 0.2 Nucleated RBC % 0.0 Absolute Neutrophils 14.32 H Absolute Lymphocytes 0.67 L Absolute Monocytes 0.85 H Absolute Eosinophils 0.11 Absolute Basophils 0.03 VBG Lactate 1.4 Sodium 137 Potassium 4.0 Chloride 101 Carbon Dioxide 28.2 Anion Gap 7.8 BUN 19 H Creatinine 1.1 Est GFR (CKD-EPI 2020) 65.79 Glucose 144 H Calcium 9.2 Total Bilirubin 1.26 H AST 17 ALT 21 Alkaline Phosphatase 106 Troponin I < 50 NT-Pro-B Natriuret Pep 687 H Total Protein 7.2 Albumin 4.2 Urine Color Yellow Urine Clarity Clear Urine pH 5.5 Ur Specific Sims 1.025 Urine Protein Negative Urine Ketones Negative Urine Blood Negative Urine Nitrite Negative Urine Bilirubin Negative Urine Urobilinogen 1.0 H Ur Leukocyte Esterase Negative Urine Glucose Negative COVID-19 Source Cancelled SARS-CoV-2 (PCR) Cancelled Influenza Type A (PCR) Cancelled Influenza Type B (PCR) Cancelled RSV (PCR) Cancelled Last Vital Signs Temp 36.2 C L 02/19/24 15:39 Pulse 90 02/19/24 18:19 Resp 25 H 02/19/24 18:20 BP 125/42 L 02/19/24 18:19 Pulse Ox 94 02/19/24 18:20 Time Spent Time spent with Patient: 40-54 minutes Time was spent: preparing to see the patient(eg.review tests), obtaining and/or reviewing separately otained hiistory, ordering medications,tests, procedures, referring, communicating with other health career development consultant and indepentently interpreting results
[2024-02-19 19:21] LABS: Troponin I < 50 ng/L (< or =60)
--- NOTE | 2024-02-19 20:03 | ED.GENADUL_ITS ---
Discharge Plan Disposition Patient Disposition: Home Condition: Stable Discharge Details Clinical Impression: Pneumonia, COPD (chronic obstructive pulmonary disease), Sepsis Primary Care Provider: Jennifer Ruiz ED Provider: Denise White Home Meds and New Rx's Prescriptions: No Action magnesium oxide 500 mg capsule 500 mg PO DAILY Qty: 90 3RF acetaminophen 500 mg tablet 1,000 mg PO TID PRN omega-3 fatty acids [Fish Oil] 1 cap PO DAILY cyanocobalamin (vitamin B-12) 1 cap PO DAILY fluticasone furoate-vilanterol [Breo Ellipta] 100-25 mcg/dose blister with device 1 inh inhalation DAILY Qty: 90 3RF Incruse Ellipta 62.5 mcg/actuation blister with device 1 inh inhalation DAILY Qty: 90 3RF bupropion HCl 150 mg tablet extended release 24 hr 150 mg PO QAM Qty: 90 1RF acetylcysteine [NAC] 600 mg capsule 600 mg PO BID Qty: 60 7RF PreserVision AREDS-2 250-90-40-1 mg capsule 1 tab PO BID aspirin 81 MG tablet,delayed release (DR/EC) 81 mg PO DAILY (DME) Aerochamber Plus Flow-Vu,S Msk 1 EACH spacer 1 ea Miscellaneous PRN polyethylene glycol 3350 [GlycoLax] 527 GM powder 17 g PO DAILY (DME) lancets [OneTouch Delica Lancets] 1 EACH misc 1 ea Miscellaneous DAILY Qty: 100 Rx Instructions: E11.9 to maintain A1C less than 7.0 albuterol sulfate [ProAir HFA] 8.5 GM HFA aerosol inhaler 1 - 2 puff Inhalation Q4-6H PRN Qty: 1 3RF Rx Instructions: DISPENSE ALBUTEROL INHALER BRAND COVERED BY INSURANCE cholecalciferol (vitamin D3) 25 mcg (1,000 unit) tablet 1,000 unit PO BID (DME) nebulizer and accessories See Rx Instructions .Route .MEDSUPPLY Qty: 1 0RF Rx Instructions: As directed albuterol sulfate 2.5 mg /3 mL (0.083 %) solution for nebulization 2.5 mg inhalation Q4H PRN (Reason: shortness of breath or wheezing) Qty: 180 3RF primidone 50 mg tablet 50 - 150 mg PO QHS MDD 150 mg Qty: 270 3RF atorvastatin 80 mg tablet See Rx Instructions .ROUTE .COMPLEX Qty: 90 3RF Dose Instruction: TAKE 1 TABLET DAILY Rx Instructions: TAKE 1 TABLET DAILY metoprolol succinate 25 mg tablet extended release 24 hr 25 mg PO DAILY Qty: 90 3RF (DME) OneTouch Ultra Test Strip See Rx Instructions .Route Qty: 100 3RF Rx Instructions: to check daily morning fasting blood glucose. No insulin. pantoprazole 20 mg tablet,delayed release (DR/EC) See Rx Instructions .ROUTE .COMPLEX Qty: 90 3RF Dose Instruction: TAKE 1 TABLET EVERY MORNINGAT LEAST 30 TO 60 MINUTES BEFORE FIRST MEAL OF THE DAY Rx Instructions: TAKE 1 TABLET EVERY MORNINGAT LEAST 30 TO 60 MINUTES BEFORE FIRST MEAL OF THE DAY ipratropium-albuterol 0.5 mg-3 mg(2.5 mg base)/3 mL Solution For Nebulization 3 ml INHALATION PRN PRN citalopram [Celexa] 40 mg tablet 40 mg PO DAILY HPI General Date/Time Provider Initiated Documentation: 02/19/24 15:36 . HPI Narrative: This 83-year-old male presents with report of shortness of breath which started today has had cough for the past several days and history of COPD. Denies any hemoptysis. Denies any calf pain or swelling. Has had some chills and feels weak per patient. Denies fever at home. Denies recent antibiotics or admissions. Does not use oxygen at home per patient. No longer smokes tobacco Related Data Home Medications ?Medication ?Instructions ?Recorded ?Confirmed aspirin 81 mg tablet,delayed 81 mg PO DAILY 09/28/12 02/19/24 release inhalational spacing device 09/28/12 02/19/24 (Aerochamber Plus Flow-Vu,Small Mask) lancets 33 gauge (OneTouch Delica #100 ea 10/13/16 02/19/24 Lancets) polyethylene glycol 3350 17 17 g PO DAILY 10/13/16 02/19/24 gram/dose oral powder (GlycoLax) albuterol sulfate 90 mcg/actuation 1 - 2 puff inhalation Q4-6H PRN ##1 04/18/17 02/19/24 aerosol inhaler (ProAir HFA) magnesium oxide 500 mg capsule 500 mg PO DAILY #90 tab-caps 11/02/18 02/19/24 cholecalciferol (vitamin D3) 25 1,000 unit PO BID 11/01/19 02/19/24 mcg (1,000 unit) tablet acetaminophen 500 mg tablet 1,000 mg PO TID PRN 07/15/21 02/19/24 acetylcysteine 600 mg capsule (NAC) 600 mg PO BID #60 caps 10/20/21 02/19/24 nebulizer and accessories #1 ea 04/16/22 02/19/24 ipratropium 0.5 mg-albuterol 3 mg 3 ml inhalation PRN PRN 12/31/22 02/19/24 (2.5 mg base)/3 mL nebulization soln albuterol sulfate 2.5 mg/3 mL 2.5 mg (3 mL) inhalation Q4H PRN 01/05/23 02/19/24 (0.083 %) solution for nebulization shortness of breath or wheezing #180 vials citalopram 40 mg tablet (Celexa) 40 mg PO DAILY 04/26/23 02/19/24 primidone 50 mg tablet 50 - 150 mg (1 - 3 x 50 mg) PO QHS 07/05/23 02/19/24 #270 tabs atorvastatin 80 mg tablet See Rx Instructions .Route 08/04/23 02/19/24 .COMPLEX #90 tabs metoprolol succinate 25 mg 25 mg PO DAILY #90 tab-caps 08/07/23 02/19/24 tablet,extended release 24 hr cyanocobalamin (vitamin B-12) 1 cap PO DAILY 11/08/23 02/19/24 omega-3 fatty acids 1 cap PO DAILY 11/08/23 02/19/24 fluticasone furoate 100 1 inh inhalation DAILY #90 ea 11/14/23 02/19/24 mcg-vilanterol 25 mcg/dose inhalation powder (Breo Ellipta) umeclidinium 62.5 mcg/actuation 1 inh inhalation DAILY #90 ea 11/14/23 02/19/24 blister powder for inhalation (Incruse Ellipta) blood sugar diagnostic (OneTouch #100 ea 12/30/23 02/19/24 Ultra Test strips) bupropion HCl 150 mg 24 hr tablet, 150 mg PO QAM #90 tabs 01/10/24 02/19/24 extended release pantoprazole 20 mg tablet,delayed See Rx Instructions .Route 01/23/24 02/19/24 release .COMPLEX #90 tabs vit C 250 mg-vit E 90 mg-zinc 40 1 tab PO BID 02/16/24 02/19/24 mg-copper 1 by-[id number] capsule (PreserVision AREDS-2) Previous Rx's ?Medication ?Instructions ?Recorded albuterol sulfate 90 mcg/actuation 1 - 2 puff inhalation Q4-6H PRN ##1 04/18/17 aerosol inhaler (ProAir HFA) magnesium oxide 500 mg capsule 500 mg PO DAILY #90 tab-caps 11/02/18 acetylcysteine 600 mg capsule (NAC) 600 mg PO BID #60 caps 10/20/21 nebulizer and accessories #1 ea 04/16/22 albuterol sulfate 2.5 mg/3 mL 2.5 mg (3 mL) inhalation Q4H PRN 01/05/23 (0.083 %) solution for nebulization shortness of breath or wheezing #180 vials primidone 50 mg tablet 50 - 150 mg (1 - 3 x 50 mg) PO QHS 07/05/23 #270 tabs atorvastatin 80 mg tablet See Rx Instructions .Route 08/04/23 .COMPLEX #90 tabs metoprolol succinate 25 mg 25 mg PO DAILY #90 tab-caps 08/07/23 tablet,extended release 24 hr fluticasone furoate 100 1 inh inhalation DAILY #90 ea 11/14/23 mcg-vilanterol 25 mcg/dose inhalation powder (Breo Ellipta) umeclidinium 62.5 mcg/actuation 1 inh inhalation DAILY #90 ea 11/14/23 blister powder for inhalation (Incruse Ellipta) blood sugar diagnostic (OneTouch #100 ea 12/30/23 Ultra Test strips) bupropion HCl 150 mg 24 hr tablet, 150 mg PO QAM #90 tabs 01/10/24 extended release pantoprazole 20 mg tablet,delayed See Rx Instructions .Route 01/23/24 release .COMPLEX #90 tabs Allergies Allergy/AdvReac Type Severity Reaction Status Date / Time codeine AdvReac Unknown Makes pts Verified 02/19/24 15:40 head feel crazy General Stated Complaint: RespSymp YUE: 3 Exam Narrative Exam Narrative: 83-year-old male alert and oriented, dyspneic and rhonchorous, pupils equal round reactive to light and accommodation, mild respiratory distress peripheral edema bilateral lower extremities 2+, alert and oriented x 4, no skin rashes or lesions, no abdominal tenderness, no murmurs or rubs, rate rhythm regular Course Vital Signs Vital signs: Vital Signs Temperature 36.2 C L 02/19/24 15:34 Pulse 87 02/19/24 15:34 Respiratory Rate 21 02/19/24 15:34 Blood Pressure 141/54 H 02/19/24 15:34 Pulse Oximetry 95 02/19/24 15:34 Temperature 36.2 C L 02/19/24 15:39 Temperature Source Temporal Artery Scan 02/19/24 15:39 Pulse 88 02/19/24 19:48 Pulse 89 02/19/24 19:50 Respiratory Rate 24 02/19/24 19:50 Respiratory Effort Short of Breath 02/19/24 16:36 Respiratory Depth Normal 02/19/24 16:36 Blood Pressure 123/56 L 02/19/24 19:48 Blood Pressure Mean 73 02/19/24 19:48 Pulse Oximetry 93 02/19/24 19:50 Pain Level 2 02/19/24 15:39 Lab/Test Results Lab/Test Results: 02/19/24 16:35 Blood Blood Culture - Pending 02/19/24 16:00 Blood Blood Culture - Pending Laboratory Tests Range/Units 02/19/24 02/19/24 02/19/24 15:48 15:55 15:58 WBC (4.4-10.8) 10^3/uL RBC (4.36-5.78) 10^6/uL Hgb (13.5-17.5) g/dL Hct (40.0-50.0) % MCV (80-95) fL MCH (27.0-33.0) pg MCHC (32.0-36.0) % RDW (11.8-14.1) % Plt Count (130-400) 10^3/uL MPV (8.0-11.0) fL Immature Gran % % Neutrophils % % Lymphocytes % % Monocytes % % Eosinophils % % Basophils % % Nucleated RBC % (0.0-0.3) % Absolute Neutrophils (1.2-6.7) 10^3/uL Absolute Lymphocytes (1.2-3.4) 10^3/uL Absolute Monocytes (0.1-0.8) 10^3/uL Absolute Eosinophils (0.0-0.7) 10^3/uL Absolute Basophils (0.0-0.2) 10^3/uL VBG Lactate (0.6-1.4) mmol/L Sodium (136-145) mmol/L Potassium (3.5-5.1) mmol/L Chloride (98-107) mmol/L Carbon Dioxide (21.0-32.0) mmol/L Anion Gap (3-11) mmol/L BUN (7-18) mg/dL Creatinine (0.70-1.30) mg/dL Est GFR (CKD-EPI 2020) (mL/min/1.73m2) Glucose (74-106) mg/dL Calcium (8.5-10.1) mg/dL Total Bilirubin (0.2-1.0) mg/dL AST (15-37) U/L ALT (16-63) U/L Alkaline Phosphatase (46-116) U/L Troponin I (< or =60) ng/L NT-Pro-B Natriuret Pep (<300) pg/mL Total Protein (6.4-8.2) g/dL Albumin (3.4-5.0) g/dL Urine Color (Yellow) Urine Clarity (Clear) Urine pH (5-8) Ur Specific [place] (1.005-1.025) Urine Protein (Neg-Trace) mg/dL Urine Ketones (Negative) mg/dL Urine Blood (Negative) Urine Nitrite (Negative) Urine Bilirubin (Negative) Urine Urobilinogen (Up to 0.2) mg/dL Ur Leukocyte Esterase (Negative) Urine Glucose (Negative) mg/dL COVID-19 Source Nasopharynx Cancelled Cancelled SARS-CoV-2 (PCR) (Negative) Negative Cancelled Cancelled Influenza Type A (PCR) (Negative) Negative Cancelled Cancelled Influenza Type B (PCR) (Negative) Negative Cancelled Cancelled RSV (PCR) (Negative) Negative Cancelled Cancelled Range/Units 02/19/24 02/19/24 02/19/24 16:00 16:13 16:42 WBC (4.4-10.8) 10^3/uL 16.05 H RBC (4.36-5.78) 10^6/uL 4.31 L Hgb (13.5-17.5) g/dL 14.0 Hct (40.0-50.0) % 41.6 MCV (80-95) fL 97 H MCH (27.0-33.0) pg 32.5 MCHC (32.0-36.0) % 33.7 RDW (11.8-14.1) % 13.3 Plt Count (130-400) 10^3/uL 189 MPV (8.0-11.0) fL 9.7 Immature Gran % % 0.4 Neutrophils % % 89.2 Lymphocytes % % 4.2 Monocytes % % 5.3 Eosinophils % % 0.7 Basophils % % 0.2 Nucleated RBC % (0.0-0.3) % 0.0 Absolute Neutrophils (1.2-6.7) 10^3/uL 14.32 H Absolute Lymphocytes (1.2-3.4) 10^3/uL 0.67 L Absolute Monocytes (0.1-0.8) 10^3/uL 0.85 H Absolute Eosinophils (0.0-0.7) 10^3/uL 0.11 Absolute Basophils (0.0-0.2) 10^3/uL 0.03 VBG Lactate (0.6-1.4) mmol/L 1.4 Sodium (136-145) mmol/L 137 Potassium (3.5-5.1) mmol/L 4.0 Chloride (98-107) mmol/L 101 Carbon Dioxide (21.0-32.0) mmol/L 28.2 Anion Gap (3-11) mmol/L 7.8 BUN (7-18) mg/dL 19 H Creatinine (0.70-1.30) mg/dL 1.1 Est GFR (CKD-EPI 2020) (mL/min/1.73m2) 65.79 Glucose (74-106) mg/dL 144 H Calcium (8.5-10.1) mg/dL 9.2 Total Bilirubin (0.2-1.0) mg/dL 1.26 H AST (15-37) U/L 17 ALT (16-63) U/L 21 Alkaline Phosphatase (46-116) U/L 106 Troponin I (< or =60) ng/L < 50 NT-Pro-B Natriuret Pep (<300) pg/mL 687 H Total Protein (6.4-8.2) g/dL 7.2 Albumin (3.4-5.0) g/dL 4.2 Urine Color (Yellow) Yellow Urine Clarity (Clear) Clear Urine pH (5-8) 5.5 Ur Specific [place] (1.005-1.025) 1.025 Urine Protein (Neg-Trace) mg/dL Negative Urine Ketones (Negative) mg/dL Negative Urine Blood (Negative) Negative Urine Nitrite (Negative) Negative Urine Bilirubin (Negative) Negative Urine Urobilinogen (Up to 0.2) mg/dL 1.0 H Ur Leukocyte Esterase (Negative) Negative Urine Glucose (Negative) mg/dL Negative COVID-19 Source Cancelled SARS-CoV-2 (PCR) (Negative) Cancelled Influenza Type A (PCR) (Negative) Cancelled Influenza Type B (PCR) (Negative) Cancelled RSV (PCR) (Negative) Cancelled Range/Units 02/19/24 18:59 WBC (4.4-10.8) 10^3/uL RBC (4.36-5.78) 10^6/uL Hgb (13.5-17.5) g/dL Hct (40.0-50.0) % MCV (80-95) fL MCH (27.0-33.0) pg MCHC (32.0-36.0) % RDW (11.8-14.1) % Plt Count (130-400) 10^3/uL MPV (8.0-11.0) fL Immature Gran % % Neutrophils % % Lymphocytes % % Monocytes % % Eosinophils % % Basophils % % Nucleated RBC % (0.0-0.3) % Absolute Neutrophils (1.2-6.7) 10^3/uL Absolute Lymphocytes (1.2-3.4) 10^3/uL Absolute Monocytes (0.1-0.8) 10^3/uL Absolute Eosinophils (0.0-0.7) 10^3/uL Absolute Basophils (0.0-0.2) 10^3/uL VBG Lactate (0.6-1.4) mmol/L Sodium (136-145) mmol/L Potassium (3.5-5.1) mmol/L Chloride (98-107) mmol/L Carbon Dioxide (21.0-32.0) mmol/L Anion Gap (3-11) mmol/L BUN (7-18) mg/dL Creatinine (0.70-1.30) mg/dL Est GFR (CKD-EPI 2020) (mL/min/1.73m2) Glucose (74-106) mg/dL Calcium (8.5-10.1) mg/dL Total Bilirubin (0.2-1.0) mg/dL AST (15-37) U/L ALT (16-63) U/L Alkaline Phosphatase (46-116) U/L Troponin I (< or =60) ng/L < 50 NT-Pro-B Natriuret Pep (<300) pg/mL Total Protein (6.4-8.2) g/dL Albumin (3.4-5.0) g/dL Urine Color (Yellow) Urine Clarity (Clear) Urine pH (5-8) Ur Specific [place] (1.005-1.025) Urine Protein (Neg-Trace) mg/dL Urine Ketones (Negative) mg/dL Urine Blood (Negative) Urine Nitrite (Negative) Urine Bilirubin (Negative) Urine Urobilinogen (Up to 0.2) mg/dL Ur Leukocyte Esterase (Negative) Urine Glucose (Negative) mg/dL COVID-19 Source SARS-CoV-2 (PCR) (Negative) Influenza Type A (PCR) (Negative) Influenza Type B (PCR) (Negative) RSV (PCR) (Negative) Medical Decision Making 83-year-old male presenting with shortness of breath weakness and presence of COPD with chills. Lactate within normal limits, white blood cell count of 16,000, temperature of 101 orally on my assessment, with a likely right lower lobe infiltrate seen on the lateral view of chest x-ray. Ambulatory trial, patient became hypoxemic, 88 to 89% on room air, patient's baseline. He did rebound quickly up to 90 to 91% and speaking complete sentences, patient is weak, elderly, and has COPD has pneumonia with a leukocytosis and meets sepsis criteria. I think he benefit from overnight admission with observation, nebs, telemetry monitoring and IV antibiotics. Ceftriaxone and doxycycline were administered. Case discussed with Dr. Young, hospitalist who will admit patient to his care Quality:SDOH Health Related Social Needs: No Data to Display Critical Care Time Critical Care Time Attestation: Approximately 35 minutes of critical care time secondary to sepsis in the presence of pneumonia and respiratory failure requiring nebs, IV antibiotics, and admission to the hospital. 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) Most recent MRI 08/25/2022 showing stenosis; Spine consult 11/01/2022 Degenerative joint disease (DJD) of lumbar spine (Acute) Effusion, right knee (Acute) Arthritis of right glenohumeral joint (Acute) POCUS INJECTION: 11/25/2023 Injection under fluoroscopy: 05/21/2022 Degenerative joint disease of right knee (Acute) Depo-Medrol injection: 05/07/2022 Bronchiectasis (Acute) Adrenal nodule (Acute) Rib pain on left side (Acute) Trochanteric bursitis of both hips (Chronic) Non-alcoholic fatty liver disease (Chronic 09/29/12) Type 2 diabetes mellitus (Chronic) Dx: 10/2018 Obesity (BMI 30-39.9) (Chronic) Advance directive in chart (Chronic 04/22/15) On-file with [facility] as of 04/22/2015 Sensorineural hearing loss, bilateral (Chronic 08/29/17) Osteoarthritis of knee (Chronic 08/13/13) Hypomagnesemia (Chronic 10/07/17) Hyperlipidemia, unspecified (Chronic 07/09/11) LDL GOAL 100 Gastroesophageal reflux disease (Chronic 07/09/11) Essential tremor (Chronic 07/27/11) Essential hypertension (Chronic 07/09/11) GOAL <130/80 Depression (Chronic 06/04/14) Long-term Celexa Rx; Wellbutrin started 12/2023 Chronic obstructive pulmonary disease (COPD) (Chronic 09/29/12) MILD, 08/2012 PFTs FEV1 2.06 (70% pred and FVC), no response to [facility] hodilator; 11/17/15 bronchoscopy [facility]: [facility]G for [employer], fungus, & bacteria; cytology NEG for malignancy Cardiomyopathy (Chronic 04/10/12) BPH (benign prostatic hyperplasia) (Chronic 04/10/12) ASCVD (arteriosclerotic cardiovascular disease) (Chronic) S/p 5 vessel CABG 1995 Echo 09/27/2014 with normal LVEF Medical History Drusen of macula of both eyes (~01/2024) 02/15/24 [facility] Actinic keratosis 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 Done at [facility] by Jimmy Cabrera MD Status post coronary artery bypass graft (~1995) Extraction of cataract Arthroplasty of knee Family History Father , CVA at age 80. Essential tremor Heart disease Hypertension Sister Hypertensive disorder, systemic arterial Heart disease Brother , [place] at age 78. Heart disease Essential tremor Brother Heart disease Daughter Essential tremor Social History Smoking/Tobacco Use Status: Former Tobacco Use Tobacco: How many years used: 30 Smoking risk assessment performed?: Yes Alcohol Intake: never Drug use: Never Substance use type: does not use Adopted: No Caregiver/Support person: No Foster care: No Household members: spouse Housing: house Number of Children: 7 number of grandchildren: 25 Communication Needs: Hard of Hearing Education Level: high school Do you need help understanding health information?: Rarely current occupation: [employer] Pets and animals: Yes Pets and animals: dog(s) Sexually active: No Do you think of yourself as: straight/heterosexual Current gender identity: male What is your relationship status?: How often do you talk on the phone with friends or family?: three or more times per week How often do you get together with friends or relatives?: once per week Do you belong to any clubs or organized social groups?: yes Panel score (0-1 are the most socially isolated patients): 3 What type of physical activity do you participate in: walking and other Details: House work Duration: 15-30 minutes/day Frequency: 5-6 times per week Lindy/Islam: Scientologist Seatbelt use: always Drive intox or ride w/intox crude oil driver: No Water heater temp set <120 deg: Yes Working smoke detector in home: Yes Fire extinguisher in home: Yes Carbon monox detector in home: Yes Do you feel safe at home: Yes Do you feel safe in your relationship?: Yes Additional Social history: He has 5 step-children in addition to 3 biological.
[2024-02-19] MEDS: Cholecalciferol (Vitamin D3) 1,000 UNIT TAB 1000 UNITS PO (21:57)
[2024-02-19] MEDS: Acetylcysteine 600 MG CAP PO (21:57)
[2024-02-19] MEDS: cefTRIAXone 1,000 MG in Normal Saline 50 ML 100 MG IVPB (21:58)
--- NOTE | 2024-02-19 22:39 | W.PC.ACHO ---
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) IFG (impaired fasting glucose) Cataract (Last Reviewed 02/19/24 @ 18:55 by Nathaniel Young MD) History of biopsy (09/09/23) S/P laminectomy (12/22/22) Status post coronary artery bypass graft (~1995) Extraction of cataract Arthroplasty of knee Most Recent Vital Signs Temperature 37.0 C 02/19/24 20:19 Temperature Source Oral 02/19/24 20:19 Pulse 88 02/19/24 19:48 Pulse 89 02/19/24 20:00 Respiratory Rate 20 02/19/24 20:00 Respiratory Effort Short of Breath 02/19/24 16:36 Respiratory Depth Normal 02/19/24 16:36 Blood Pressure 123/56 L 02/19/24 19:48 Blood Pressure Mean 73 02/19/24 19:48 Pulse Oximetry 94 02/19/24 20:00 Pain Level 2 02/19/24 15:39 Allergies codeine Adverse Reaction (Unknown, Verified 02/19/24 15:40) Makes pts head feel crazy pt states It makes my head crazy. Precautions Isolation PUI 02/19/24 15:40 IV IV Catheter Type [Left Forearm Saline Lock ] IV Catheter Gauge [Left 18 Forearm] Diet Orders Category Date Time Status Regular/Normal [DIET] Nutrition 02/20/24 Breakfast Ordered Diagnostics 02/19/24 02/19/24 02/19/24 Range/Units 18:59 16:42 16:13 WBC (4.4-10.8) 10^3/uL RBC (4.36-5.78) 10^6/uL Hgb (13.5-17.5) g/dL Hct (40.0-50.0) % MCV (80-95) fL MCH (27.0-33.0) pg MCHC (32.0-36.0) % RDW (11.8-14.1) % Plt Count (130-400) 10^3/uL MPV (8.0-11.0) fL Immature Gran % % Neutrophils % % Lymphocytes % % Monocytes % % Eosinophils % % Basophils % % Nucleated RBC % (0.0-0.3) % Absolute Neutrophils (1.2-6.7) 10^3/uL Absolute Lymphocytes (1.2-3.4) 10^3/uL Absolute Monocytes (0.1-0.8) 10^3/uL Absolute Eosinophils (0.0-0.7) 10^3/uL Absolute Basophils (0.0-0.2) 10^3/uL VBG Lactate (0.6-1.4) mmol/L Sodium (136-145) mmol/L Potassium (3.5-5.1) mmol/L Chloride (98-107) mmol/L Carbon Dioxide (21.0-32.0) mmol/L Anion Gap (3-11) mmol/L BUN (7-18) mg/dL Creatinine (0.70-1.30) mg/dL Est GFR (CKD-EPI 2020) (mL/min/1.73m2) Glucose (74-106) mg/dL Calcium (8.5-10.1) mg/dL Total Bilirubin (0.2-1.0) mg/dL AST (15-37) U/L ALT (16-63) U/L Alkaline Phosphatase (46-116) U/L Troponin I < 50 (< or =60) ng/L NT-Pro-B Natriuret Pep (<300) pg/mL Total Protein (6.4-8.2) g/dL Albumin (3.4-5.0) g/dL Urine Color Yellow (Yellow) Urine Clarity Clear (Clear) Urine pH 5.5 (5-8) Ur Specific [place] 1.025 (1.005-1.025) Urine Protein Negative (Neg-Trace) mg/dL Urine Ketones Negative (Negative) mg/dL Urine Blood Negative (Negative) Urine Nitrite Negative (Negative) Urine Bilirubin Negative (Negative) Urine Urobilinogen 1.0 H (Up to 0.2) mg/dL Ur Leukocyte Esterase Negative (Negative) Urine Glucose Negative (Negative) mg/dL COVID-19 Source Cancelled SARS-CoV-2 (PCR) Cancelled (Negative) Influenza Type A (PCR) Cancelled (Negative) Influenza Type B (PCR) Cancelled (Negative) RSV (PCR) Cancelled (Negative) 02/19/24 02/19/24 02/19/24 Range/Units 16:00 15:58 15:55 WBC 16.05 H (4.4-10.8) 10^3/uL RBC 4.31 L (4.36-5.78) 10^6/uL Hgb 14.0 (13.5-17.5) g/dL Hct 41.6 (40.0-50.0) % MCV 97 H (80-95) fL MCH 32.5 (27.0-33.0) pg MCHC 33.7 (32.0-36.0) % RDW 13.3 (11.8-14.1) % Plt Count 189 (130-400) 10^3/uL MPV 9.7 (8.0-11.0) fL Immature Gran % 0.4 % Neutrophils % 89.2 % Lymphocytes % 4.2 % Monocytes % 5.3 % Eosinophils % 0.7 % Basophils % 0.2 % Nucleated RBC % 0.0 (0.0-0.3) % Absolute Neutrophils 14.32 H (1.2-6.7) 10^3/uL Absolute Lymphocytes 0.67 L (1.2-3.4) 10^3/uL Absolute Monocytes 0.85 H (0.1-0.8) 10^3/uL Absolute Eosinophils 0.11 (0.0-0.7) 10^3/uL Absolute Basophils 0.03 (0.0-0.2) 10^3/uL VBG Lactate 1.4 (0.6-1.4) mmol/L Sodium 137 (136-145) mmol/L Potassium 4.0 (3.5-5.1) mmol/L Chloride 101 (98-107) mmol/L Carbon Dioxide 28.2 (21.0-32.0) mmol/L Anion Gap 7.8 (3-11) mmol/L BUN 19 H (7-18) mg/dL Creatinine 1.1 (0.70-1.30) mg/dL Est GFR (CKD-EPI 2021) 65.79 (mL/min/1.73m2) Glucose 144 H (74-106) mg/dL Calcium 9.2 (8.5-10.1) mg/dL Total Bilirubin 1.26 H (0.2-1.0) mg/dL AST 17 (15-37) U/L ALT 21 (16-63) U/L Alkaline Phosphatase 106 (46-116) U/L Troponin I < 50 (< or =60) ng/L NT-Pro-B Natriuret Pep 687 H (<300) pg/mL Total Protein 7.2 (6.4-8.2) g/dL Albumin 4.2 (3.4-5.0) g/dL Urine Color (Yellow) Urine Clarity (Clear) Urine pH (5-8) Ur Specific [place] (1.005-1.025) Urine Protein (Neg-Trace) mg/dL Urine Ketones (Negative) mg/dL Urine Blood (Negative) Urine Nitrite (Negative) Urine Bilirubin (Negative) Urine Urobilinogen (Up to 0.2) mg/dL Ur Leukocyte Esterase (Negative) Urine Glucose (Negative) mg/dL COVID-19 Source Cancelled Cancelled SARS-CoV-2 (PCR) Cancelled Cancelled (Negative) Influenza Type A (PCR) Cancelled Cancelled (Negative) Influenza Type B (PCR) Cancelled Cancelled (Negative) RSV (PCR) Cancelled Cancelled (Negative) 02/19/24 Range/Units 15:48 WBC (4.4-10.8) 10^3/uL RBC (4.36-5.78) 10^6/uL Hgb (13.5-17.5) g/dL Hct (40.0-50.0) % MCV (80-95) fL MCH (27.0-33.0) pg MCHC (32.0-36.0) % RDW (11.8-14.1) % Plt Count (130-400) 10^3/uL MPV (8.0-11.0) fL Immature Gran % % Neutrophils % % Lymphocytes % % Monocytes % % Eosinophils % % Basophils % % Nucleated RBC % (0.0-0.3) % Absolute Neutrophils (1.2-6.7) 10^3/uL Absolute Lymphocytes (1.2-3.4) 10^3/uL Absolute Monocytes (0.1-0.8) 10^3/uL Absolute Eosinophils (0.0-0.7) 10^3/uL Absolute Basophils (0.0-0.2) 10^3/uL VBG Lactate (0.6-1.4) mmol/L Sodium (136-145) mmol/L Potassium (3.5-5.1) mmol/L Chloride (98-107) mmol/L Carbon Dioxide (21.0-32.0) mmol/L Anion Gap (3-11) mmol/L BUN (7-18) mg/dL Creatinine (0.70-1.30) mg/dL Est GFR (CKD-EPI 2020) (mL/min/1.73m2) Glucose (74-106) mg/dL Calcium (8.5-10.1) mg/dL Total Bilirubin (0.2-1.0) mg/dL AST (15-37) U/L ALT (16-63) U/L Alkaline Phosphatase (46-116) U/L Troponin I (< or =60) ng/L NT-Pro-B Natriuret Pep (<300) pg/mL Total Protein (6.4-8.2) g/dL Albumin (3.4-5.0) g/dL Urine Color (Yellow) Urine Clarity (Clear) Urine pH (5-8) Ur Specific [place] (1.005-1.025) Urine Protein (Neg-Trace) mg/dL Urine Ketones (Negative) mg/dL Urine Blood (Negative) Urine Nitrite (Negative) Urine Bilirubin (Negative) Urine Urobilinogen (Up to 0.2) mg/dL Ur Leukocyte Esterase (Negative) Urine Glucose (Negative) mg/dL COVID-19 Source Nasopharynx SARS-CoV-2 (PCR) Negative (Negative) Influenza Type A (PCR) Negative (Negative) Influenza Type B (PCR) Negative (Negative) RSV (PCR) Negative (Negative) 02/19/24 16:35 Blood Culture - Pending Blood 02/19/24 16:00 Blood Culture - Pending Blood Intake and Output - 24 Hour Total 02/19/24 15:31 thru 02/19/24 19:51 Intake Total 60 Balance 60 Weight 101.151 kg Intake: IV 60 Falls Risk Assessment History of Falls No History 02/19/24 16:36 Contributing Factors No Factors 02/19/24 16:36 Ambulatory Aids Independent 02/19/24 16:36 Tubes/Lines W/no contributing factors 02/19/24 16:36 Gait Evaluation No gait disturbance 02/19/24 16:36 Cognition No cognitive impairment 02/19/24 16:36 Fall Total Score 10 02/19/24 16:36 Level of Risk Standard/Low Risk 02/19/24 16:36 Problems (Last Reviewed 02/19/24 @ 18:55 by Nathaniel Young MD) Pneumonia (Acute) v v v v v v v v v Sending and/or Receiving Nurses: Please use comment section below to note any information pertinent to the patient hand-off not included above. Information / Comments: ambulates with cane; pt O2 sat stable on RA Report received from: Veronica Adamson RN
[2024-02-20] VITALS (11 sets, daily range): BP systolic 116–132; BP diastolic 71–94; PULSE 62–85; RESP 2–22; TEMP 36.1–36.4; O2SAT 93–99
[2024-02-20] MEDS: methylPREDNISolone SUCC 40 MG VIAL IVP ×4 (01:01→23:24)
[2024-02-20] MEDS: Normal Saline Flush 10 ML SYR (01:01)
[2024-02-20] MEDS: Albuterol/Ipratropium 3 ML UPD VIAL UPD ×4 (01:42→20:39)
[2024-02-20] MEDS: DOXYCYCLINE 100 MG in Normal Saline 100 ML IVPB ×2 (05:44→18:04)
[2024-02-20] MEDS: Atorvastatin 40 MG TAB 80 MG PO (07:46)
[2024-02-20] MEDS: Acetylcysteine 600 MG CAP PO ×2 (07:47→19:45)
[2024-02-20] MEDS: Polyethylene Glycol 3350 17 GM PACKET PO (07:47)
[2024-02-20] MEDS: Metoprolol CR 25 MG TABCR PO (07:47)
[2024-02-20] MEDS: Cholecalciferol (Vitamin D3) 1,000 UNIT TAB 1000 UNITS PO ×2 (07:47→19:45)
[2024-02-20] MEDS: Aspirin E.C. 81 MG TABEC PO (07:47)
[2024-02-20] MEDS: Cyanocobalamin 100 MCG TABLET PO (07:47)
[2024-02-20] MEDS: Magnesium Oxide 400 MG TAB PO (07:47)
[2024-02-20] MEDS: Citalopram 20 MG TAB 40 MG PO (07:47)
[2024-02-20] MEDS: buPROPion-XL 150 MG TABCR PO (07:47)
[2024-02-20] MEDS: Budesonide/Formoterol 80/4.5 6.9 GM 60 PUFF INH IH ×2 (08:21→20:42)
[2024-02-20] MEDS: Umeclidinium 7 CAP INHALER IH (08:22)
--- NOTE | 2024-02-20 10:50 | PGE_ITS ---
Date of Service Date of service: 02/20/24 Time of Service: 10:50 Assessment and Plan Assessment and plan (1) Pneumonia: Status: Acute Assessment and plan: Continue Ceftriaxone and doxycylclin continue updrafts, Legionella urinary antigen, strep pneumoniae and mycoplasma pending sputum Gram stain completed : GPC Blood cultures: results pending (2) COPD (chronic obstructive pulmonary disease): Status: Chronic Assessment and plan: Transition to oral steroids in AM and as above PRN updraft Continue Budesonide/formoterol Continue Umeclidinium (3) Occipital cerebral infarction: Assessment and plan: On ASA and Statin at home on primidone at home continue current regimen (4) Diabetes: Assessment and plan: Control with lifestyle modification A1C 6.6 in 09/2023 Glucometer before meals and at bedtime with sliding scale insulin coverage while the patient is on steroids. (5) Hypertension: Assessment and plan: Continue home metoprolol dose (6) Depression: Assessment and plan: Continue bupropion and citalopram Licensed Life And Health Agent consult Discussed with Dr. 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 No neurological focal deficit Resp: Normal respiratory pattern, speaks in full sentences, unlabored breathing, clear upper lung bilaterally, right base fine -velcro like crackles Cardio: regular rhythm, S1, S2, no murmur, capillary refill<3 sec., bilateral radial and dorsalis pedis pulses are positive GI: Abdomen is not distended, soft and non tender, bowel sounds are present Psych: RASS 0, congruent mood and sad affect. Objective Last Vital Signs Temp 36.1 C L 02/20/24 08:00 Pulse 63 02/20/24 08:00 Resp 20 02/20/24 08:00 BP 132/81 02/20/24 08:00 Pulse Ox 96 02/20/24 08:00 Laboratory Results - last 24 hr 02/19/24 02/19/24 02/19/24 15:48 15:55 15:58 WBC RBC Hgb Hct MCV MCH MCHC RDW Plt Count MPV Immature Gran % Neutrophils % Lymphocytes % Monocytes % Eosinophils % Basophils % Nucleated RBC % Absolute Neutrophils Absolute Lymphocytes Absolute Monocytes Absolute Eosinophils Absolute Basophils VBG Lactate Sodium Potassium Chloride Carbon Dioxide Anion Gap BUN Creatinine Est GFR (CKD-EPI 2020) Glucose Calcium Total Bilirubin AST ALT Alkaline Phosphatase Troponin I NT-Pro-B Natriuret Pep Total Protein Albumin Urine Color Urine Clarity Urine pH Ur Specific [place] Urine Protein Urine Ketones Urine Blood Urine Nitrite Urine Bilirubin Urine Urobilinogen Ur Leukocyte Esterase Urine Glucose COVID-19 Source Nasopharynx Cancelled Cancelled SARS-CoV-2 (PCR) Negative Cancelled Cancelled Influenza Type A (PCR) Negative Cancelled Cancelled Influenza Type B (PCR) Negative Cancelled Cancelled RSV (PCR) Negative Cancelled Cancelled 02/19/24 02/19/24 02/19/24 16:00 16:13 16:42 WBC 16.05 H RBC 4.31 L Hgb 14.0 Hct 41.6 MCV 97 H MCH 32.5 MCHC 33.7 RDW 13.3 Plt Count 189 MPV 9.7 Immature Gran % 0.4 Neutrophils % 89.2 Lymphocytes % 4.2 Monocytes % 5.3 Eosinophils % 0.7 Basophils % 0.2 Nucleated RBC % 0.0 Absolute Neutrophils 14.32 H Absolute Lymphocytes 0.67 L Absolute Monocytes 0.85 H Absolute Eosinophils 0.11 Absolute Basophils 0.03 VBG Lactate 1.4 Sodium 137 Potassium 4.0 Chloride 101 Carbon Dioxide 28.2 Anion Gap 7.8 BUN 19 H Creatinine 1.1 Est GFR (CKD-EPI 2020) 65.79 Glucose 144 H Calcium 9.2 Total Bilirubin 1.26 H AST 17 ALT 21 Alkaline Phosphatase 106 Troponin I < 50 NT-Pro-B Natriuret Pep 687 H Total Protein 7.2 Albumin 4.2 Urine Color Yellow Urine Clarity Clear Urine pH 5.5 Ur Specific [place] 1.025 Urine Protein Negative Urine Ketones Negative Urine Blood Negative Urine Nitrite Negative Urine Bilirubin Negative Urine Urobilinogen 1.0 H Ur Leukocyte Esterase Negative Urine Glucose Negative COVID-19 Source Cancelled SARS-CoV-2 (PCR) Cancelled Influenza Type A (PCR) Cancelled Influenza Type B (PCR) Cancelled RSV (PCR) Cancelled 02/19/24 18:59 WBC RBC Hgb Hct MCV MCH MCHC RDW Plt Count MPV Immature Gran % Neutrophils % Lymphocytes % Monocytes % Eosinophils % Basophils % Nucleated RBC % Absolute Neutrophils Absolute Lymphocytes Absolute Monocytes Absolute Eosinophils Absolute Basophils VBG Lactate Sodium Potassium Chloride Carbon Dioxide Anion Gap BUN Creatinine Est GFR (CKD-EPI 2020) Glucose Calcium Total Bilirubin AST ALT Alkaline Phosphatase Troponin I < 50 NT-Pro-B Natriuret Pep Total Protein Albumin Urine Color Urine Clarity Urine pH Ur Specific [place] Urine Protein Urine Ketones Urine Blood Urine Nitrite Urine Bilirubin Urine Urobilinogen Ur Leukocyte Esterase Urine Glucose COVID-19 Source SARS-CoV-2 (PCR) Influenza Type A (PCR) Influenza Type B (PCR) RSV (PCR) Time Spent with Patient Time Spent with Patient: >50 minutes Time was spent: preparing to see the patient(eg.review tests), obtaining and/or reviewing separately otained hiistory, ordering medications,tests, procedures, referring, communicating with other health child care sitter, indepentently interpreting results, counseling the patient and care coordination
[2024-02-20 12:06] LABS: Abs Immature Grans 0.12 10^3/uL (0.0-0.06); Absolute Lymphocyte Count 0.36 10^3/uL (1.2-3.4); Basophils % 0.1 %; HCT 37.1 % (40.0-50.0); HGB 12.5 g/dL (13.5-17.5); Immature Grans % 0.8 %; Lymphocytes % 2.4 %; MCH 32.6 pg (27.0-33.0); MCHC 33.7 % (32.0-36.0); MCV 97 fL (80-95); MPV 10.3 fL (8.0-11.0); Monocytes % 2.1 %; Neutrophils % 94.6 %; Platelet Count 176 10^3/uL (130-400); RBC 3.84 10^6/uL (4.36-5.78); RDW 13.3 % (11.8-14.1); RDW-SD 47.5 fL; WBC 15.01 10^3/uL (4.4-10.8)
[2024-02-20 12:16] LABS: Absolute Basophil Count 0.02 10^3/uL (0.0-0.2); Absolute Monocyte Count 0.32 10^3/uL (0.1-0.8)
--- NOTE | 2024-02-20 18:14 | PDOC.CMIN ---
Date of service: 02/20/24 Time of Service: 18:14 Care Management Initial Assmt Initial Assessment Reason for Hospitalization: Pneumonia Functional Status/Living Situation Patient Presentation: Adolfo was sitting up in his chair, about to eat dinner with his , Letty, who was visiting. Adolfo stated that he is feeling much better today, and that per MD, he may be ready for discharge tomorrow, if he continues to improve. Adolfo reported that he is independent at home, and continues to drive; he does not anticipate the need for any services at this time. CM reviewed resources in the community, for awareness. Adolfo reported that his , Letty, will drive him home once he is medically cleared. CM will continue to follow. Town of Residence: [facility] Resides with: Spouse (Letty) Natural Supports: Chloe have seven children, most of which live locally and are supportive. Employment Status: Retired ([employer]) Instrumental Activities of Daily Living (ADLs): Independent Medications Medication Management: No Issues/Barriers identified Advance Directives Advance Directives: Do you have an Advance Directive: Y 02/19/24 16:08 AD On File at [facility]: Y 02/19/24 16:08 Date Asked 12/31/22 12/31/22 12:58 AD Date Reviewed 02/19/24 02/19/24 16:08 COLST On File at [facility] COLST Date Scanned Code Status Resuscitation Status DNR/DNI Insurance Coverage/Financial Issues Insurance: MVP; Financial assistance 57%. 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 His will drive him home via private vehicle when ready. He will follow up with his PCP and discharge plan of care. CM will continue to follow. 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) Most recent MRI 08/25/2022 showing stenosis; Spine consult 11/01/2022 Degenerative joint disease (DJD) of lumbar spine (Acute) Effusion, right knee (Acute) Arthritis of right glenohumeral joint (Acute) POCUS INJECTION: 11/25/2023 Injection under fluoroscopy: 05/21/2022 Degenerative joint disease of right knee (Acute) Depo-Medrol injection: 05/07/2022 Bronchiectasis (Acute) Adrenal nodule (Acute) Rib pain on left side (Acute) Trochanteric bursitis of both hips (Chronic) Non-alcoholic fatty liver disease (Chronic 09/29/12) Type 2 diabetes mellitus (Chronic) Dx: 10/2018 Obesity (BMI 30-39.9) (Chronic) Advance directive in chart (Chronic 04/22/15) On-file with [facility] as of 04/22/2015 Sensorineural hearing loss, bilateral (Chronic 08/29/17) Osteoarthritis of knee (Chronic 08/13/13) Hypomagnesemia (Chronic 10/07/17) Hyperlipidemia, unspecified (Chronic 07/09/11) LDL GOAL 100 Gastroesophageal reflux disease (Chronic 07/09/11) Essential tremor (Chronic 07/27/11) Essential hypertension (Chronic 07/09/11) GOAL <130/80 Depression (Chronic 06/04/14) Long-term Celexa Rx; Wellbutrin started 12/2023 Chronic obstructive pulmonary disease (COPD) (Chronic 09/29/12) MILD, 08/2012 PFTs FEV1 2.06 (70% pred and FVC), no response to bronchodilator; 11/17/15 bronchoscopy [facility]: NEG for Af[employer], fungus, & bacteria; cytology NEG for malignancy Cardiomyopathy (Chronic 04/10/12) BPH (benign prostatic hyperplasia) (Chronic 04/10/12) ASCVD (arteriosclerotic cardiovascular disease) (Chronic) S/p 5 vessel CABG 1995 Echo 09/27/2014 with normal LVEF Medical History Drusen of macula of both eyes (~01/2024) 02/15/24 [facility] Actinic keratosis 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 Done at [facility] by Jimmy Cabrera MD Status post coronary artery bypass graft (~1995) Extraction of cataract Arthroplasty of knee Family History Father , CVA at age 80. Essential tremor Heart disease Hypertension Sister Hypertensive disorder, systemic arterial Heart disease Brother , [place] at age 78. Heart disease Essential tremor Brother Heart disease Daughter Essential tremor Social History Smoking/Tobacco Use Status: Former Tobacco Use Tobacco: How many years used: 30 Smoking risk assessment performed?: Yes Alcohol Intake: never Drug use: Never Substance use type: does not use Adopted: No Caregiver/Support person: No Foster care: No Household members: spouse Housing: house Number of Children: 7 number of grandchildren: 25 Communication Needs: Hard of Hearing Education Level: high school Do you need help understanding health information?: Rarely current occupation: Ret[employer] Pets and animals: Yes Pets and animals: dog(s) Sexually active: No Do you think of yourself as: straight/heterosexual Current gender identity: male What is your relationship status?: How often do you talk on the phone with friends or family?: three or more times per week How often do you get together with friends or relatives?: once per week Do you belong to any clubs or organized social groups?: yes Panel score (0-1 are the most socially isolated patients): 3 What type of physical activity do you participate in: walking and other Details: House work Duration: 15-30 minutes/day Frequency: 5-6 times per week Lindy/Church: [employer] Seatbelt use: always Drive intox or ride w/intox charter driver: No Water heater temp set <120 deg: Yes Working smoke detector in home: Yes Fire extinguisher in home: Yes Carbon monox detector in home: Yes Do you feel safe at home: Yes Do you feel safe in your relationship?: Yes Additional Social history: He has 5 step-children in addition to 3 biological. SDOH(Care Management) Screening Will the Patient Participate in the Screening?: Yes Do you worry about having a steady place to live?: yes Problems where you live: no known problems In the past 12 months, have you had to go without electric, gas, oil or water in your home?: no Have you or anyone in your house had to go without enough food to eat?: no Has lack of transportation kept you from medical appointments or from doing things needed for daily living?: no Has anyone in your support network made you feel unsafe for any reason?: no Health Related Social Needs Health related social needs: housing instability, housed, with risk of homelessness(Z59.811)
[2024-02-20] MEDS: Melatonin 3 MG TAB 6 MG PO (19:45)
[2024-02-20] MEDS: Primidone 50 MG TAB 150 MG PO (19:45)
[2024-02-20] MEDS: cefTRIAXone 1 GM/50 ML BAG IVPB (19:46)
[2024-02-20 22:10] LABS: Legionella Ag Detection Urine Negative (Negative)
[2024-02-20] MEDS: Enoxaparin 40 MG/0.4 ML SYR SC (23:24)
[2024-02-21] VITALS (7 sets, daily range): BP systolic 124–153; BP diastolic 64–69; PULSE 66–75; RESP 3–18; TEMP 35.9–36.3; O2SAT 93–99
[2024-02-21] MEDS: Albuterol/Ipratropium 3 ML UPD VIAL UPD ×2 (02:33→07:43)
[2024-02-21] MEDS: DOXYCYCLINE 100 MG in Normal Saline 100 ML IVPB (06:11)
[2024-02-21 07:20] LABS: Abs Immature Grans 0.11 10^3/uL (0.0-0.06); Absolute Basophil Count 0.01 10^3/uL (0.0-0.2); Absolute Lymphocyte Count 0.57 10^3/uL (1.2-3.4); Absolute Monocyte Count 0.63 10^3/uL (0.1-0.8); Absolute Neutrophil Count 13.34 10^3/uL (1.2-6.7); Basophils % 0.1 %; Eosinophils % 0.3 %; HCT 36.5 % (40.0-50.0); HGB 12.5 g/dL (13.5-17.5); Immature Grans % 0.7 %; Lymphocytes % 3.9 %; MCH 32.2 pg (27.0-33.0); MCHC 34.2 % (32.0-36.0); MCV 94 fL (80-95); MPV 10.1 fL (8.0-11.0); Monocytes % 4.3 %; Neutrophils % 90.7 %; Platelet Count 185 10^3/uL (130-400); RBC 3.88 10^6/uL (4.36-5.78); RDW 13.3 % (11.8-14.1); RDW-SD 45.7 fL; WBC 14.71 10^3/uL (4.4-10.8)
[2024-02-21 07:29] LABS: Absolute Eosinophil Count 0.04 10^3/uL (0.0-0.7)
[2024-02-21 07:39] LABS: Anion Gap 9.2 mmol/L (3-11); BUN 22 mg/dL (7-18); CO2 26.8 mmol/L (21.0-32.0); CREATININE 0.9 mg/dL (0.70-1.30); Calcium 9.3 mg/dL (8.5-10.1); Chloride 102 mmol/L (98-107); Glucose 213 mg/dL (74-106); Potassium 4.4 mmol/L (3.5-5.1); Sodium 138 mmol/L (136-145)
[2024-02-21] MEDS: Budesonide/Formoterol 80/4.5 6.9 GM 60 PUFF INH IH (07:42)
[2024-02-21] MEDS: Umeclidinium 7 CAP INHALER IH (07:43)
[2024-02-21] MEDS: Acetylcysteine 600 MG CAP PO (07:57)
[2024-02-21] MEDS: buPROPion-XL 150 MG TABCR PO (07:57)
[2024-02-21] MEDS: Polyethylene Glycol 3350 17 GM PACKET PO (07:57)
[2024-02-21] MEDS: Metoprolol CR 25 MG TABCR PO (07:57)
[2024-02-21] MEDS: Cholecalciferol (Vitamin D3) 1,000 UNIT TAB 1000 UNITS PO (07:57)
[2024-02-21] MEDS: Atorvastatin 40 MG TAB 80 MG PO (07:58)
[2024-02-21] MEDS: predniSONE 20 MG TAB 40 MG PO (07:58)
[2024-02-21] MEDS: Cyanocobalamin 100 MCG TABLET PO (07:58)
[2024-02-21] MEDS: Pantoprazole 20 MG TABCR PO (07:58)
[2024-02-21] MEDS: Aspirin E.C. 81 MG TABEC PO (07:58)
[2024-02-21] MEDS: Magnesium Oxide 400 MG TAB PO (07:58)
[2024-02-21] MEDS: Insulin Aspart 300 UNITS/3 ML PEN SC ×2 (07:59→12:28)
[2024-02-21] MEDS: Citalopram 20 MG TAB PO (07:59)
--- NOTE | 2024-02-21 12:36 | W.PM.DS.N ---
Date of service: 02/21/24 Time of Service: 12:36 DS: Diagnosis Discharge Diagnosis (1) Pneumonia: Status: Acute (2) COPD (chronic obstructive pulmonary disease): Status: Chronic (3) Occipital cerebral infarction: Status: Acute (4) Diabetes: Status: Chronic (5) Hypertension: Status: Chronic (6) Depression: Status: Chronic Discharge Plan Disposition Patient Disposition: Home Condition: Improving Discharge Details Reason For Visit: Pneumonia Admit Date/Time: 02/19/24 19:02 Admit Provider: Nathaniel Young Attending Provider: Nathaniel Young Primary Care Provider: Jennifer Ruiz Hospital Course Hospital Course: 83-year-old male with COPD presenting with a 2-day history of cough and dyspnea on exertion. Developed chills and a fever up to 38c. On examination, noted to have rhonchi on the right and diminished breath sounds elsewhere. Initial workup revealed leukocytosis and CXR findings consistent with a posterior infiltrate. Treatment initiated with antibiotics, steroids, and updrafts, with reported improvement in symptoms. Patient improved and was discharged to home with cefpodoxime and doxycycline as well as prednisone. Patient had no oxygen requirement. Vital signs stable. Home Meds and New Rx's Prescriptions: New prednisone 20 mg Tablet 40 mg PO DAILY Qty: 10 0RF cefpodoxime 200 mg tablet 200 mg PO BID Qty: 10 0RF Rx Instructions: must administer with a meal/food doxycycline hyclate 100 mg tablet 100 mg PO BID 5 Days Qty: 10 0RF Continued magnesium oxide 500 mg capsule 500 mg PO DAILY Qty: 90 3RF acetaminophen 500 mg tablet 1,000 mg PO TID PRN omega-3 fatty acids [Fish Oil] 1 cap PO DAILY cyanocobalamin (vitamin B-12) 1 cap PO DAILY fluticasone furoate-vilanterol [Breo Ellipta] 100-25 mcg/dose blister with device 1 inh inhalation DAILY Qty: 90 3RF Incruse Ellipta 62.5 mcg/actuation blister with device 1 inh inhalation DAILY Qty: 90 3RF bupropion HCl 150 mg tablet extended release 24 hr 150 mg PO QAM Qty: 90 1RF acetylcysteine [NAC] 600 mg capsule 600 mg PO BID Qty: 60 7RF PreserVision AREDS-2 250-90-40-1 mg capsule 1 tab PO BID aspirin 81 MG tablet,delayed release (DR/EC) 81 mg PO DAILY (DME) Aerochamber Plus Flow-Vu,S Msk 1 EACH spacer 1 ea Miscellaneous PRN polyethylene glycol 3350 [GlycoLax] 527 GM powder 17 g PO DAILY (DME) lancets [OneTouch Delica Lancets] 1 EACH misc 1 ea Miscellaneous DAILY Qty: 100 Rx Instructions: E11.9 to maintain A1C less than 7.0 albuterol sulfate [ProAir HFA] 8.5 GM HFA aerosol inhaler 1 - 2 puff Inhalation Q4-6H PRN Qty: 1 3RF Rx Instructions: DISPENSE ALBUTEROL INHALER BRAND COVERED BY INSURANCE cholecalciferol (vitamin D3) 25 mcg (1,000 unit) tablet 1,000 unit PO BID (DME) nebulizer and accessories See Rx Instructions .Route .MEDSUPPLY Qty: 1 0RF Rx Instructions: As directed albuterol sulfate 2.5 mg /3 mL (0.083 %) solution for nebulization 2.5 mg inhalation Q4H PRN (Reason: shortness of breath or wheezing) Qty: 180 3RF primidone 50 mg tablet 50 - 150 mg PO QHS MDD 150 mg Qty: 270 3RF atorvastatin 80 mg tablet See Rx Instructions .ROUTE .COMPLEX Qty: 90 3RF Dose Instruction: TAKE 1 TABLET DAILY Rx Instructions: TAKE 1 TABLET DAILY metoprolol succinate 25 mg tablet extended release 24 hr 25 mg PO DAILY Qty: 90 3RF (DME) OneTouch Ultra Test Strip See Rx Instructions .Route Qty: 100 3RF Rx Instructions: to check daily morning fasting blood glucose. No insulin. pantoprazole 20 mg tablet,delayed release (DR/EC) See Rx Instructions .ROUTE .COMPLEX Qty: 90 3RF Dose Instruction: TAKE 1 TABLET EVERY MORNINGAT LEAST 30 TO 60 MINUTES BEFORE FIRST MEAL OF THE DAY Rx Instructions: TAKE 1 TABLET EVERY MORNINGAT LEAST 30 TO 60 MINUTES BEFORE FIRST MEAL OF THE DAY ipratropium-albuterol 0.5 mg-3 mg(2.5 mg base)/3 mL Solution For Nebulization 3 ml INHALATION PRN PRN citalopram [Celexa] 40 mg tablet 40 mg PO DAILY Discharge Instructions Instructions: Pneumonia, Adult (DC), Cefpodoxime, Doxycycline Additional Instructions: Take Guaifenesen to relieve chest congestion. Stand Alone Forms: Nursing Discharge Form Referrals: Jennifer Ruiz [employer]IVER [Primary Care Provider] - 03/08/24 10:00 am (1-2 weeks post inpt visit for pneumonia) Activity:: Activity as Tolerated Equipment/Supplies:: No Equipment Needed Diet:: As Tolerated Discharge Orders Discharge Orders: Discharge Order (Routine); Ordered 02/21/24 Ordered By: Arielle Fishman Discharge Data Discharge Date/Time-TO BE ENTERED AT DEPARTURE: 02/21/24 14:15 DS: Summary Time Spent with Patient providing and/or coordinating discharge services: Greater than 30 minutes Status at Discharge Functional status at discharge: uses cane/walker Overall status at discharge: patient is progressing back to baseline Mental Status: mental status grossly normal Speech and Movement: speech and movement normal Mood: congruent mood Affect: normal affect Quality:SDOH Health Related Social Needs: Health related social needs risk of homeless Exam Narrative Exam Narrative: Constitutional The patient is sitting in chair without acute distress Neuro:alert and oriented to self, person, place time and situation. No neurological focal deficit Resp: Normal respiratory pattern, speaks in full sentences, unlabored breathing, clear lungs bilaterally Cardio: regular rhythm, S1, S2, no murmur, capillary refill<3 sec., bilateral radial and dorsalis pedis pulses are positive GI: Abdomen is not distended, soft and non tender, bowel sounds are present Psych: RASS 0, congruent mood and sad affect. Psych Mental Status: mental status grossly normal Speech and Movement: speech and movement normal Mood: congruent mood Affect: normal affect DS: Data Vitals/I&O Vitals and I&O: Vital Signs Temperature 36.3 C L 02/21/24 11:29 Temperature Source Temporal Artery Scan 02/21/24 11:29 Pulse 70 02/21/24 11:29 Pulse Rhythm Irregular 02/21/24 08:00 Pulse 89 02/19/24 20:00 Respiratory Rate 17 02/21/24 11:29 Respiratory Effort Normal, Non-Labored 02/21/24 08:00 Respiratory Depth Normal 02/21/24 08:00 Respiratory Pattern Normal 02/21/24 08:00 Blood Pressure 124/68 02/21/24 11:29 Blood Pressure Mean 73 02/19/24 19:48 Pulse Oximetry 94 02/21/24 11:29 Oxygen Delivery Method Room Air 02/21/24 11:29 Oxygen Flow Rate 0 02/21/24 11:29 Pain Level 0 02/20/24 00:18 Comment Accidental input 02/20/24 19:33 Intake & Output 02/20/24 02/21/24 02/21/24 23:59 11:59 23:59 Intake Total 340 / 700 250 / 250 Balance 340 / 700 250 / 250 Intake: IV 100 / 220 250 / 250 Oral 240 / 480 Other: Urine Appearance Clear Clear Data Completed and Pending Labs on day of discharge: Labs from last 24 hours 02/21/24 02/20/24 02/20/24 06:50 11:00 00:00 WBC 14.71 H RBC 3.88 L Hgb 12.5 L Hct 36.5 L MCV 94 MCH 32.2 MCHC 34.2 RDW 13.3 Plt Count 185 MPV 10.1 Immature Gran % 0.7 Neutrophils % 90.7 Lymphocytes % 3.9 Monocytes % 4.3 Eosinophils % 0.3 Basophils % 0.1 Nucleated RBC % 0.0 Absolute Neutrophils 13.34 H Absolute Lymphocytes 0.57 L Absolute Monocytes 0.63 Absolute Eosinophils 0.04 Absolute Basophils 0.01 Sodium 138 Potassium 4.4 Chloride 102 Carbon Dioxide 26.8 Anion Gap 9.2 BUN 22 H Creatinine 0.9 Est GFR (CKD-EPI 2020) 83.70 Glucose 213 H Calcium 9.3 Urine Legionella Ag Negative M. pneumoniae Source Pending M. pneumoniae (PCR) Pending Preliminary micro results at discharge 02/20/24 05:52 Sputum Culture - Preliminary Sputum Normal Ana 02/19/24 16:35 Blood Culture - Preliminary Blood NO GROWTH 24 HOURS 02/19/24 16:00 Blood Culture - Preliminary Blood NO GROWTH 24 HOURS PFSH All Active Problems (Updated 02/20/24 @ 20:07 by Beatrice Oliver APRN) Hypertension (Chronic) Diabetes (Chronic) Sepsis (Acute) COPD (chronic obstructive pulmonary disease) (Chronic) Pneumonia (Acute) Pneumonia (Acute) Trochanteric bursitis, right hip (Acute) DEPO MEDROL 12/09/23 Trochanteric bursitis, left hip (Acute) Steroid injection: 07/08/2023 Lumbar radiculopathy, acute (Acute ~05/2023) Hip pain (Acute ~05/2023) Vancomycin resistant enterococcus culture positive (Acute) Occipital cerebral infarction (Acute) CVA (cerebral vascular accident) (Chronic) Weakness (Acute) Degenerative spondylolisthesis (Acute) 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) Most recent MRI 08/25/2022 showing stenosis; Spine consult 11/01/2022 Degenerative joint disease (DJD) of lumbar spine (Acute) Effusion, right knee (Acute) Arthritis of right glenohumeral joint (Acute) POCUS INJECTION: 11/25/2023 Injection under fluoroscopy: 05/21/2022 Degenerative joint disease of right knee (Acute) Depo-Medrol injection: 05/07/2022 Bronchiectasis (Acute) Adrenal nodule (Acute) Rib pain on left side (Acute) Trochanteric bursitis of both hips (Chronic) Non-alcoholic fatty liver disease (Chronic 09/29/12) Type 2 diabetes mellitus (Chronic) Dx: 10/2018 Obesity (BMI 30-39.9) (Chronic) Advance directive in chart (Chronic 04/22/15) On-file with [facility] as of 04/22/2015 Sensorineural hearing loss, bilateral (Chronic 08/29/17) Osteoarthritis of knee (Chronic 08/13/13) Hypomagnesemia (Chronic 10/07/17) Hyperlipidemia, unspecified (Chronic 07/09/11) LDL GOAL 100 Gastroesophageal reflux disease (Chronic 07/09/11) Essential tremor (Chronic 07/27/11) Essential hypertension (Chronic 07/09/11) GOAL <130/80 Depression (Chronic 06/04/14) Long-term Celexa Rx; Wellbutrin started 12/2023 Chronic obstructive pulmonary disease (COPD) (Chronic 09/29/12) MILD, 08/2012 PFTs FEV1 2.06 (70% pred and FVC), no response to bronchodilator; 11/17/15 bronchoscopy [facility]: NEG for [employer], fungus, & bacteria; cytology NEG for malignancy Cardiomyopathy (Chronic 04/10/12) BPH (benign prostatic hyperplasia) (Chronic 04/10/12) ASCVD (arteriosclerotic cardiovascular disease) (Chronic) S/p 5 vessel CABG 1995 Echo 09/27/2014 with normal LVEF Medical History Drusen of macula of both eyes (~01/2024) 02/15/24 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 Done at [facility] by Jimmy Cabrera MD Status post coronary artery bypass graft (~1995) Extraction of cataract Arthroplasty of knee Family History Father , CVA at age 80. Essential tremor Heart disease Hypertension Sister Hypertensive disorder, systemic arterial Heart disease Brother , [place] at age 78. Heart disease Essential tremor Brother Heart disease Daughter Essential tremor Social History Smoking/Tobacco Use Status: Former Tobacco Use Tobacco: How many years used: 30 Smoking risk assessment performed?: Yes Alcohol Intake: never Drug use: Never Substance use type: does not use Adopted: No Caregiver/Support person: No Foster care: No Household members: spouse Housing: house Number of Children: 7 number of grandchildren: 25 Communication Needs: Hard of Hearing Education Level: high school Do you need help understanding health information?: Rarely current occupation: [employer] Pets and animals: Yes Pets and animals: dog(s) Sexually active: No Do you think of yourself as: straight/heterosexual Current gender identity: male What is your relationship status?: How often do you talk on the phone with friends or family?: three or more times per week How often do you get together with friends or relatives?: once per week Do you belong to any clubs or organized social groups?: yes Panel score (0-1 are the most socially isolated patients): 3 What type of physical activity do you participate in: walking and other Details: House work Duration: 15-30 minutes/day Frequency: 5-6 times per week [employer] Seatbelt use: always Drive intox or ride w/intox test driver: No Water heater temp set <120 deg: Yes Working smoke detector in home: Yes Fire extinguisher in home: Yes Carbon monox detector in home: Yes Do you feel safe at home: Yes Do you feel safe in your relationship?: Yes Additional Social history: He has 5 step-children in addition to 3 biological. Time Spent with Patient Time Spent with Patient: 45-69 minutes Time was spent: preparing to see the patient(eg.review tests), ordering medications,tests, procedures, referring, communicating with other health patient care representative, indepentently interpreting results, counseling the patient and care coordination
--- NOTE | 2024-02-21 18:29 | CMDISCH_ITS ---
Date of service: 02/21/24 Time of Service: 18:29 LACE Index Scoring Tool Questions: Length of Stay (in days): 2 Was the patient admitted via the E.D.?: Yes Comorbidities: Cerebrovascular Disease, Diabetes w/o Complication, Chronic Pulmonary Disease and Liver or Renal Disease E.D. Visits: 0 Answers: Total Score: 10 Risk of Readmission: High Risk Care Management Discharge Plan Reason for Hospitalization: pneumonia Discharge Plan: Bill returned home today with no new services. His drove him home via private vehicle. He will follow up with his PCP and discharge plan of care. He is happy to be going home. Patient/Family Education Needs: Review discharge instructions and limitations, discussion of self care needs including ask me three. SDOH Health Related Social Needs: Health related social needs risk of homeless Health related social needs: housing instability, housed, with risk of homeles maris(Z59.811)
[2024-02-22 00:20] LABS: Streptococcus Pneumoniae Ag, U Negative (Negative)
== END 2024-02-21 14:15 | disposition home or self-care (01) | DRG 194 ==
LOC: ER 20:22 → MS 20:38
PROVIDERS: Nurse Practitioner Acute Care; Admitting Provider General Practice; Emergency Provider Physician Assistant; PCP Nurse Practitioner Adult Health; Visit Provider General Practice
DX: J18.9 Pneumonia, unspecified organism (principal); I42.9 Cardiomyopathy, unspecified; J44.0 Chronic obstructive pulmonary disease with (acute) lower respiratory infection; E11.9 Type 2 diabetes mellitus without complications; I10 Essential (primary) hypertension; F32.A Depression, unspecified; M70.61 Trochanteric bursitis, right hip; M54.16 Radiculopathy, lumbar region; Z86.73 Personal history of transient ischemic attack (TIA), and cerebral infarction without residual deficits; M48.061 Spinal stenosis, lumbar region without neurogenic claudication; M54.42 Lumbago with sciatica, left side; M54.41 Lumbago with sciatica, right side; M19.011 Primary osteoarthritis, right shoulder; M17.11 Unilateral primary osteoarthritis, right knee; K76.0 Fatty (change of) liver, not elsewhere classified; I25.10 Atherosclerotic heart disease of native coronary artery without angina pectoris; Z95.1 Presence of aortocoronary bypass graft; N40.0 Benign prostatic hyperplasia without lower urinary tract symptoms
CPT/HCPCS: 00123; 36415; 80048; 80053; 87040; 87449; 87637; 93005; 94640; 96365; 96375; 99291; J1650; 71046; 81003; 83605; 83880; 84484; 85025; 87070; 87205; 87581; 87899; 93010; 94664; 94760; 99222; 99233; 99239; J0696; J1815; J2919; J3490; J7512; J7620

== ENCOUNTER 2024-02-27 14:22 | Emergency (ER) | payer OTHER, SELFPAY ==
[2024-02-27 14:27] VITALS: BP 147/66; PULSE 65; TEMP 36.5; O2SAT 97
--- NOTE | 2024-02-27 14:27 | W.ED.GENAD ---
Discharge Plan Disposition Patient Disposition: Home Discharge Details Clinical Impression: Acute pain of right hip Primary Care Provider: Jennifer Ruiz ED Provider: Trevon Rose Home Meds and New Rx's Prescriptions: Continued magnesium oxide 500 mg capsule 500 mg PO DAILY Qty: 90 3RF acetaminophen 500 mg tablet 1,000 mg PO TID PRN omega-3 fatty acids [Fish Oil] 1 cap PO DAILY cyanocobalamin (vitamin B-12) 1 cap PO DAILY fluticasone furoate-vilanterol [Breo Ellipta] 100-25 mcg/dose blister with device 1 inh inhalation DAILY Qty: 90 3RF Incruse Ellipta 62.5 mcg/actuation blister with device 1 inh inhalation DAILY Qty: 90 3RF bupropion HCl 150 mg tablet extended release 24 hr 150 mg PO QAM Qty: 90 1RF acetylcysteine [NAC] 600 mg capsule 600 mg PO BID Qty: 60 7RF PreserVision AREDS-2 250-90-40-1 mg capsule 1 tab PO BID aspirin 81 MG tablet,delayed release (DR/EC) 81 mg PO DAILY (DME) Aerochamber Plus Flow-Vu,S Msk 1 EACH spacer 1 ea Miscellaneous PRN polyethylene glycol 3350 [GlycoLax] 527 GM powder 17 g PO DAILY (DME) lancets [OneTouch Delica Lancets] 1 EACH misc 1 ea Miscellaneous DAILY Qty: 100 Rx Instructions: E11.9 to maintain A1C less than 7.0 albuterol sulfate [ProAir HFA] 8.5 GM HFA aerosol inhaler 1 - 2 puff Inhalation Q4-6H PRN Qty: 1 3RF Rx Instructions: DISPENSE ALBUTEROL INHALER BRAND COVERED BY INSURANCE cholecalciferol (vitamin D3) 25 mcg (1,000 unit) tablet 1,000 unit PO BID (DME) nebulizer and accessories See Rx Instructions .Route .MEDSUPPLY Qty: 1 0RF Rx Instructions: As directed albuterol sulfate 2.5 mg /3 mL (0.083 %) solution for nebulization 2.5 mg inhalation Q4H PRN (Reason: shortness of breath or wheezing) Qty: 180 3RF primidone 50 mg tablet 50 - 150 mg PO QHS MDD 150 mg Qty: 270 3RF atorvastatin 80 mg tablet See Rx Instructions .ROUTE .COMPLEX Qty: 90 3RF Dose Instruction: TAKE 1 TABLET DAILY Rx Instructions: TAKE 1 TABLET DAILY metoprolol succinate 25 mg tablet extended release 24 hr 25 mg PO DAILY Qty: 90 3RF (DME) OneTouch Ultra Test Strip See Rx Instructions .Route Qty: 100 3RF Rx Instructions: to check daily morning fasting blood glucose. No insulin. pantoprazole 20 mg tablet,delayed release (DR/EC) See Rx Instructions .ROUTE .COMPLEX Qty: 90 3RF Dose Instruction: TAKE 1 TABLET EVERY MORNINGAT LEAST 30 TO 60 MINUTES BEFORE FIRST MEAL OF THE DAY Rx Instructions: TAKE 1 TABLET EVERY MORNINGAT LEAST 30 TO 60 MINUTES BEFORE FIRST MEAL OF THE DAY ipratropium-albuterol 0.5 mg-3 mg(2.5 mg base)/3 mL solution for nebulization 3 ml INHALATION TID PRN (Reason: shortness of breath or wheezing) Qty: 90 0RF citalopram [Celexa] 40 mg tablet 40 mg PO DAILY cefpodoxime 200 mg tablet 200 mg PO BID Qty: 10 0RF Rx Instructions: must administer with a meal/food Discharge Instructions Additional Instructions: You were seen in the emergency department for your hip pain. Your CAT scan and x-ray showed no sign of any hip fractures. As we discussed please follow-up with your primary care provider later this week. Please return to emergency department if you develop any weakness or any subsequent falls. For your pain please take medications as follows: 1. Take acetaminophen (Tylenol), 1,000 mg (two 500 mg tabs) every 6 hours Discharge Data Discharge Date/Time-TO BE ENTERED AT DEPARTURE: 02/27/24 19:27 HPI General Date/Time Provider Initiated Documentation: 02/27/24 14:27. HPI Narrative: MDM This is an overall well-appearing normothermic and not tachycardic 83-year-old male with right hip and groin pain concerning for the possibility of fracture for which patient will undergo plain films of his femur and pelvis. If plain films are unremarkable will increase sensitivity CT of his pelvis to assess for fragility fracture. Of note patient does have a history of trochanteric bursitis of the bilateral hips and this certainly could be causing his pain. No pain out of proportion to suggest necrotizing soft tissue infection. No preceding nausea dizziness chest pain or shortness of breath so my suspicion is low for ACS and PE and I did not obtain an ECG nor send a D-dimer. No head strike to suggest benefit from CT head. No rash to head to suggest zoster. No dysuria no frequency to suggest urinary tract infection so I did not send a urinalysis. Right foot warm well-perfused so I am not concerned for critical limb ischemia so I do not feel that the patient requires a CT angiogram with runoffs. No fevers no history of prosthetic hip so doubt septic joint. No nausea vomiting or abdominal pain so doubt referred source of pain from intra-abdominal infection. No midline thoracic nor lumbar spinal tenderness so doubt vertebral body fracture. Patient has no history of anticoagulation and is not experiencing any flank pains my suspicion for retroperitoneal hemorrhage is low so I did not feel that the patient required a CT scan of his abdomen pelvis with IV contrast. 11:10 PM I spoke with health community health program representative Dana and I have asked her to have the patient seen later this week by his primary care provider as he may or may not benefit from an outpatient MRI to increase sensitivity for geriatric frailty fractures and hip fractures given his fall and negative CT. Chronic conditions affecting the care of the patient: Cardiomyopathy History obtained from an outside historian: Dr. Santos [facility] internal External record review: N/A Medications: Acetaminophen Social determinants of health affecting disposition: N/A Management discussed with: N/A Treatment/interventions considered: Hospitalization but deferred given good mobility Response to therapies provided: N/A HPI This is an 83-year-old male with a history of trochanteric bursitis coronary artery disease cardiomyopathy arrives emergency department via private vehicle in setting of right hip pain. Patient reports that he fell 3 days ago while outside in his garden. He was reportedly standing on some soft ground and blocks his balance. He landed on his right hip. He has been ambulating with a cane subsequently. He denies any preceding chest pain loss of consciousness nausea or vomiting. No shortness of breath. He is not anticoagulated but takes 81 mg of aspirin every day. He denies routine ethanol. He has not had any abdominal pain. Denies dysuria and frequency. No back pain. No chest pain. Exam General: Chronically ill-appearing in no acute distress speaking in complete sentences. Head: Normocephalic, atraumatic. Eye: Extraocular eye movements intact. No conjunctival injection. No scleral icterus. Ear, nose, mouth, throat: Grossly normal inspection. Normal voice, handling secretions normally. Neck: Trachea midline. No cervical spinal tenderness. Cardiovascular: Well-perfused distal extremities. Regular rate and rhythm Respiratory: Nonlabored respiration. Clear lungs bilaterally Gastrointestinal: Nondistended abdomen. Soft nontender. Back: No midline thoracic nor lumbar spinal tenderness. Musculoskeletal: Right hip with ecchymosis overlying buttocks. Patient has tenderness radiating into his left groin. No rash to left hip. Patient has some pain with internal rotation. He can tolerate passive flexion and extension of his right hip. No tenderness throughout distal right lower extremity. Knee nontender. 5 out of 5 strength dorsi and plantarflexion right foot. Right foot warm well-perfused with less than 2-second capillary refill. 2+ right PT and DP pulses. Skin: Normal for age and race, grossly normal temperature and turgor. No acute rash. Neurologic: Alert and appropriate, no apparent acute deficits. Psychiatric: Mood and manner are appropriate. Grooming and personal hygiene are appropriate. Related Data Home Medications ?Medication ?Instructions ?Recorded ?Confirmed aspirin 81 mg tablet,delayed 81 mg PO DAILY 09/28/12 02/27/24 release inhalational spacing device 09/28/12 02/27/24 (Aerochamber Plus Flow-Vu,Small Mask) lancets 33 gauge ([facility] #[facility] ea 10/13/16 02/27/24 Lancets) polyethylene glycol 3350 17 17 g PO DAILY 10/13/16 02/27/24 gram/dose oral powder (GlycoLax) albuterol sulfate 90 mcg/actuation 1 - 2 puff inhalation Q4-6H PRN ##1 04/18/17 02/27/24 aerosol inhaler (ProAir HFA) magnesium oxide 500 mg capsule 500 mg PO DAILY #90 tab-caps 11/02/18 02/27/24 cholecalciferol (vitamin D3) 25 1,000 unit PO BID 11/01/19 02/27/24 mcg (1,000 unit) tablet acetaminophen 500 mg tablet 1,000 mg PO TID PRN 07/15/21 02/27/24 acetylcysteine 600 mg capsule (NAC) 600 mg PO BID #60 caps 10/20/21 02/27/24 nebulizer and accessories #1 ea 04/16/22 02/27/24 albuterol sulfate 2.5 mg/3 mL 2.5 mg (3 mL) inhalation Q4H PRN 01/05/23 02/27/24 (0.083 %) solution for nebulization shortness of breath or wheezing #180 vials citalopram 40 mg tablet (Celexa) 40 mg PO DAILY 04/26/23 02/27/24 primidone 50 mg tablet 50 - 150 mg (1 - 3 x 50 mg) PO QHS 07/05/23 02/27/24 #270 tabs atorvastatin 80 mg tablet See Rx Instructions .Route 08/04/23 02/27/24 .COMPLEX #90 tabs metoprolol succinate 25 mg 25 mg PO DAILY #90 tab-caps 08/07/23 02/27/24 tablet,extended release 24 hr cyanocobalamin (vitamin B-12) 1 cap PO DAILY 11/08/23 02/27/24 omega-3 fatty acids 1 cap PO DAILY 11/08/23 02/27/24 fluticasone furoate 100 1 inh inhalation DAILY #90 ea 11/14/23 02/27/24 mcg-vilanterol 25 mcg/dose inhalation powder (Breo Ellipta) umeclidinium 62.5 mcg/actuation 1 inh inhalation DAILY #90 ea 11/14/23 02/27/24 blister powder for inhalation (Incruse Ellipta) blood sugar diagnostic (OneTouch #100 ea 12/30/23 02/27/24 Ultra Test strips) bupropion HCl 150 mg 24 hr tablet, 150 mg PO QAM #90 tabs 01/10/24 02/27/24 extended release pantoprazole 20 mg tablet,delayed See Rx Instructions .Route 01/23/24 02/27/24 release .COMPLEX #90 tabs vit C 250 mg-vit E 90 mg-zinc 40 1 tab PO BID 02/16/24 02/27/24 mg-copper 1 [id number] capsule (PreserVision AREDS-2) cefpodoxime 200 mg tablet 200 mg PO BID #10 tabs 02/21/24 02/27/24 ipratropium 0.5 mg-albuterol 3 mg 3 ml inhalation TID PRN shortness 02/24/24 02/27/24 (2.5 mg base)/3 mL nebulization of breath or wheezing #90 mL soln Previous Rx's ?Medication ?Instructions ?Recorded albuterol sulfate 90 mcg/actuation 1 - 2 puff inhalation Q4-6H PRN ##1 04/18/17 aerosol inhaler (ProAir HFA) magnesium oxide 500 mg capsule 500 mg PO DAILY #90 tab-caps 11/02/18 acetylcysteine 600 mg capsule (NAC) 600 mg PO BID #60 caps 10/20/21 nebulizer and accessories #1 ea 04/16/22 albuterol sulfate 2.5 mg/3 mL 2.5 mg (3 mL) inhalation Q4H PRN 01/05/23 (0.083 %) solution for nebulization shortness of breath or wheezing #180 vials primidone 50 mg tablet 50 - 150 mg (1 - 3 x 50 mg) PO QHS 07/05/23 #270 tabs atorvastatin 80 mg tablet See Rx Instructions .Route 08/04/23 .COMPLEX #90 tabs metoprolol succinate 25 mg 25 mg PO DAILY #90 tab-caps 08/07/23 tablet,extended release 24 hr fluticasone furoate 100 1 inh inhalation DAILY #90 ea 11/14/23 mcg-vilanterol 25 mcg/dose inhalation powder (Breo Ellipta) umeclidinium 62.5 mcg/actuation 1 inh inhalation DAILY #90 ea 11/14/23 blister powder for inhalation (Incruse Ellipta) blood sugar diagnostic (OneTouch #100 ea 12/30/23 Ultra Test strips) bupropion HCl 150 mg 24 hr tablet, 150 mg PO QAM #90 tabs 01/10/24 extended release pantoprazole 20 mg tablet,delayed See Rx Instructions .Route 01/23/24 release .COMPLEX #90 tabs cefpodoxime 200 mg tablet 200 mg PO BID #10 tabs 02/21/24 ipratropium 0.5 mg-albuterol 3 mg 3 ml inhalation TID PRN shortness 02/24/24 (2.5 mg base)/3 mL nebulization of breath or wheezing #90 mL soln Allergies Allergy/AdvReac Type Severity Reaction Status Date / Time codeine AdvReac Unknown Makes pts Verified 02/27/24 14:30 head feel crazy General YUE: 3 Medical Decision Making Quality:SDOH Health Related Social Needs: Health related social needs risk of homeless PFSH All Active Problems (Updated 02/27/24 @ 18:24 by Trevon Rose MD) Acute pain of right hip (Acute) Sepsis (Acute) COPD (chronic obstructive pulmonary disease) (Chronic) Pneumonia (Acute) Pneumonia (Acute) Trochanteric bursitis, right hip (Acute) DEPO MEDROL 12/09/23 Trochanteric bursitis, left hip (Acute) Steroid injection: 07/08/2023 Lumbar radiculopathy, acute (Acute ~05/2023) Hip pain (Acute ~05/2023) Vancomycin resistant enterococcus culture positive (Acute) CVA (cerebral vascular accident) (Chronic) Weakness (Acute) Degenerative spondylolisthesis (Acute) 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) Most recent MRI 08/25/2022 showing stenosis; Spine consult 11/01/2022 Degenerative joint disease (DJD) of lumbar spine (Acute) Effusion, right knee (Acute) Arthritis of right glenohumeral joint (Acute) POCUS INJECTION: 11/25/2023 Injection under fluoroscopy: 05/21/2022 Degenerative joint disease of right knee (Acute) Depo-Medrol injection: 05/07/2022 Bronchiectasis (Acute) Adrenal nodule (Acute) Rib pain on left side (Acute) Trochanteric bursitis of both hips (Chronic) Non-alcoholic fatty liver disease (Chronic 09/29/12) Type 2 diabetes mellitus (Chronic) Dx: 10/2018 Obesity (BMI 30-39.9) (Chronic) Advance directive in chart (Chronic 04/22/15) On-file with [facility] as of 04/22/2015 Sensorineural hearing loss, bilateral (Chronic 08/29/17) Osteoarthritis of knee (Chronic 08/13/13) Hypomagnesemia (Chronic 10/07/17) Hyperlipidemia, unspecified (Chronic 07/09/11) LDL GOAL 100 Gastroesophageal reflux disease (Chronic 07/09/11) Essential tremor (Chronic 07/27/11) Essential hypertension (Chronic 07/09/11) GOAL <130/80 Chronic obstructive pulmonary disease (COPD) (Chronic 09/29/12) MILD, 08/2012 PFTs FEV1 2.06 (70% pred and FVC), no response to bronchodilator; 11/17/15 bronchoscopy NC: NEG for [employer], fungus, & bacteria; cytology NEG for malignancy Cardiomyopathy (Chronic 04/10/12) BPH (benign prostatic hyperplasia) (Chronic 04/10/12) ASCVD (arteriosclerotic cardiovascular disease) (Chronic) S/p 5 vessel CABG 1995 Echo 09/27/2014 with normal LVEF Medical History Drusen of macula of both eyes (~01/2024) 02/15/24 [facility] Actinic keratosis 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 Done at [facility] by Jimmy Cabrera MD Status post coronary artery bypass graft (~1995) Extraction of cataract Arthroplasty of knee Family History Father , CVA at age 80. Essential tremor Heart disease Hypertension Sister Hypertensive disorder, systemic arterial Heart disease Brother , MD at age 78. Heart disease Essential tremor Brother Heart disease Daughter Essential tremor Social History Smoking/Tobacco Use Status: Former Tobacco Use Tobacco: How many years used: 30 Smoking risk assessment performed?: Yes Alcohol Intake: never Drug use: Never Substance use type: does not use Adopted: No Caregiver/Support person: No Foster care: No Household members: spouse Housing: house Number of Children: 7 number of grandchildren: 25 Communication Needs: Hard of Hearing Education Level: high school Do you need help understanding health information?: Rarely current occupation: Ret[employer] Pets and animals: Yes Pets and animals: dog(s) Sexually active: No Do you think of yourself as: straight/heterosexual Current gender identity: male What is your relationship status?: How often do you talk on the phone with friends or family?: three or more times per week How often do you get together with friends or relatives?: once per week Do you belong to any clubs or organized social groups?: yes Panel score (0-1 are the most socially isolated patients): 3 What type of physical activity do you participate in: walking and other Details: House work Duration: 15-30 minutes/day Frequency: 5-6 times per week Lindy/Amish: L[employer] Day Seatbelt use: always Drive intox or ride w/intox 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
[2024-02-27] MEDS: Acetaminophen 500 MG TAB 1000 MG PO (14:51)
[2024-02-27 14:55] VITALS: RESP 18
--- NOTE | 2024-02-27 15:45 | DI.RAD_ITS ---
Exam(s) XR HIP RT COMPLETE AP PELVIS EXAM: XR HIP RT COMPLETE AP PELVIS CLINICAL HISTORY: Right hip pain. TECHNIQUE: 2D digital imaging was performed. COMPARISON: CR XR HIP LT COMPLETE AP PELVIS from 06/08/2023 FINDINGS: Two views Multilevel fusion hardware in the lumbar spine again noted. There is no evidence of pelvic nor hip fracture. Minimal degenerative changes in the hips. No osteo phytes. Bone density is age-appropriate. No osseous lesions. Symmetrical vascular calcification in the femoral arteries noted bilaterally. IMPRESSION: No acute osseous findings in the pelvis and hips. If there is significant clinical consideration for fracture then CT or MRI would be recommended. DATA REPOSITORY: RADIATION DOSE DELIVERED:
--- NOTE | 2024-02-27 17:04 | DI.CT_ITS ---
Exam(s) CT PELVIC WO EXAM: CT PELVIC WO CLINICAL HISTORY: Right hip pain fall. TECHNIQUE: Imaging Protocol: Axial computed tomography images with coronal and sagittal reformatted images were created and reviewed CONTRAST MATERIAL: Intravenous: none COMPARISON: CT CT CHEST PE ABD PELVIS W from 04/26/2023 CR XR HIP RT COMPLETE AP PELVIS from 02/27/2024 FINDING: PELVIS: OSSEOUS: Tri level fusion hardware noted in the lower lumbar spine at L3-L5 comprised bilateral poste rior fusion mila secured by bilateral intrapedicular screws at these 3 levels. The relationship of th e screws relative to the superior endplates is satisfactory at all levels of the fusion. There has b een removal of posterior osseous elements at the fused levels..Appearance levels is similar to CT sca n of 04/26/2023there is no evidence of sacral fracture. No fractures of the pubic rami evident. Sac roiliac joints appear unremarkable. No hip fractures evident. No hip joint effusions. No evidence of avascular necrosis of the femoral heads. No significant soft tissue hematomas adjacent to the hip s, given the trauma history. Ischial tuberosities appear unremarkable as do the inferior and superio r pubic rami. There are no abnormal soft tissue densities around the right hip. There is, however, a [address] osteophytic density in the soft tissues just lateral to the greater trochanter of the left hip. This having more the appearance of calcific tendinitis-bursitis at this level than an actual fracture fragment. There is no hematoma at this level. No hip joint effusion. ANTERIOR ABDOMINAL WALL/GI:No evidence of significant anterior abdominal wall nor inguinal hernia in the pelvis evident.No obvious bowel obstruction. No evidence of appendicitis.No evidence of acute si gmoid diverticulitis.No free fluid in the pelvis. LYMPH NODES: There is no intrapelvic nor inguinal adenopathy. URINARY BLADDER: No calculi nor obvious masses evident REPRODUCTIVE: Prostate size unremarkable. Seminal vesicles unremarkable.. No obturator adenopathy. No inguinal adenopathy. No evidence of intrapelvic hematoma. IMPRESSION: 1. Small calcific density seen just lateral to the greater trochanter of the LEFT hip. This has more the appearance of calcific tendinitis more so than an actual fracture fragment. 2. Evidence of fracture the opposite-right hip nor elsewhere in the pelvis. No intrapelvic hematomas . 3. Other findings as above. RADIATION DOSE DELIVERED: Total DLP DATA REPOSITORY: All CT scans at this facility are submitted to the National Radiology Data Registry (NRDR) Dose Index Registry (DIR) with the [employer] (ACR). RADIATION OPTIMIZATION: All CT scans at this facility use at least one of these dose optimization te chniques: automated exposure control; mA and/or kV adjustment per patient size (includes targeted exa ms where dose is matched to clinical indication); or iterative reconstruction.
--- NOTE | 2024-02-27 17:10 | DI.CT_ITS ---
Exam(s) CT LOWER EXTREMITY RT WO EXAM: CT LOWER EXTREMITY RT WO CLINICAL HISTORY: Femur,Right hip pain fall. TECHNIQUE: Imaging Protocol: Axial computed tomography images with coronal and sagittal reformatted images were created and reviewed. CONTRAST MATERIAL: Intravenous: None COMPARISON: CR XR HIP RT COMPLETE AP PELVIS from 02/27/2024 FINDINGS: OSSEOUS: There is no evidence of right hip nor right femur. There are minimal degenerative changes i n the right hip. No joint effusion. No evidence of avascular necrosis. There are degenerative dalton ges in the knee. Most evident in the medial and in the lateral aspect of the patellofemoral compartm ent. No osseous lesions. There is a small knee joint effusion evident in the lateral aspect of the suprap atellar bursa. SOFT TISSUES: Over the medial aspect of the knee there is some subcutaneous soft tissue induration. There is also a small calcific density measuring 2.5 x 1.5 mm located in the deep subcutaneous soft t issue just superficial to the left medial patellar retinaculum. This may represent a foreign body gi karo that there is surrounding soft tissue edema. No abscess. No evidence of osteomyelitis. IMPRESSION: No fractures evident in the right hip and femur. Mild degenerative changes in the hip Moderate degenerative changes in the right knee and small right knee joint effusion. Subcutaneous ex tra-articular calcific density versus foreign body over the medial aspect of the knee with some surro unding fat stranding. Findings discussed with ER physician 02/27/2024 5:55 p.m. RADIATION DOSE DELIVERED: Total DLP DATA REPOSITORY: All CT scans at this facility are submitted to the National Radiology Data Registry (NRDR) Dose Index Registry (DIR) with the [employer] (ACR). RADIATION OPTIMIZATION: All CT scans at this facility use at least one of these dose optimization te chniques: automated exposure control; mA and/or kV adjustment per patient size (includes targeted exa ms where dose is matched to clinical indication); or iterative reconstruction.
--- NOTE | 2024-02-27 23:19 | NUR.NOTE ---
Referral per Dr. Rose to PCP this week. Patient fell and has hip pain, Negative x-ray and negative CT. Put the referral in the Comptometer Operator's box for follow up assistance. Faxed the referral to [facility].Nursing Note:
== END 2024-02-27 19:27 | disposition home or self-care (01) ==
PROVIDERS: Emergency Provider Emergency Medicine; PCP Nurse Practitioner Adult Health
DX: M25.551 Pain in right hip (principal); W19.XXXA Unspecified fall, initial encounter
CPT/HCPCS: 99284; 72192; 73502; 73700; 99283

== ENCOUNTER → 2024-02-28 11:26 | Outpatient (BNVA) | payer MEDICARE, SELFPAY | PROVIDERS: PCP Nurse Practitioner Adult Health; Visit Provider Psychiatry & Neurology Neurology | DX: G25.0 Essential tremor (principal); I63.9 Cerebral infarction, unspecified | CPT/HCPCS: 99213 ==

== ENCOUNTER 2024-03-21 02:58 | Outpatient (CLI) | payer MEDICARE, SELFPAY ==
[2024-03-21 09:27] LABS: COMMENT (LAB VIEW ONLY) 101.36 mg/dL; Microalb ug/mg Crea 19.4 ug/mg Cr
[2024-03-21 09:30] LABS: Hemoglobin A1C 6.3 % (<5.7)
[2024-03-21 09:57] LABS: ALT 21 U/L (16-63); AST 16 U/L (15-37); Albumin 3.7 g/dL (3.4-5.0); Alkaline Phosphatase 107 U/L (46-116); Anion Gap 2.6 mmol/L (3-11); BUN 19 mg/dL (7-18); Bilirubin, Total 0.61 mg/dL (0.2-1.0); CO2 32.4 mmol/L (21.0-32.0); Calcium 9.3 mg/dL (8.5-10.1); Calculated LDL 65 mg/dL (<100); Chloride 101 mmol/L (98-107); Cholesterol 138 mg/dL (<200); Estimated GFR 73.76 (mL/min/1.73m2); Folate 9.8 ng/mL (8.6-20.0); Glucose 143 mg/dL (74-106); HDL Cholesterol 45 mg/dL (40-60); Potassium 4.5 mmol/L (3.5-5.1); Sodium 136 mmol/L (136-145); Total Protein 6.8 g/dL (6.4-8.2); Triglyceride 141 mg/dL (<150); Vitamin B12 730 pg/mL (193-986)
== END 2024-03-21 02:59 | disposition home or self-care (01) ==
LOC: LBO 02:58
PROVIDERS: PCP Nurse Practitioner Adult Health; Referring Provider Nurse Practitioner Adult Health; Visit Provider Nurse Practitioner Adult Health
DX: E11.9 Type 2 diabetes mellitus without complications (principal); F32.9 Major depressive disorder, single episode, unspecified; I10 Essential (primary) hypertension; I25.10 Atherosclerotic heart disease of native coronary artery without angina pectoris; E78.5 Hyperlipidemia, unspecified; K21.9 Gastro-esophageal reflux disease without esophagitis; J44.9 Chronic obstructive pulmonary disease, unspecified
CPT/HCPCS: 36415; 80053; 80061; 82043; 82570; 82607; 82746; 83036

== ENCOUNTER 2024-04-18 11:09 | Outpatient (CLI) | payer MEDICARE, SELFPAY ==
--- NOTE | 2024-04-18 | DI.RAD_ITS ---
Exam(s) XR CHEST 2V PA LATERAL EXAM: XR CHEST 2V PA LATERAL CLINICAL HISTORY: COUGH R05.9 TECHNIQUE: 2D digital imaging was performed. Two views. COMPARISON: CR,XR XR CHEST 2V PA LATERAL from 02/19/2024 FINDINGS: HEART: Normal size. Aorta: Mildly tortuous. PULMONARY VASCULATURE: Normal. MEDIASTINUM: Unremarkable. LUNGS: Patchy increased density seen above the right diaphragm could represent right middle or lower lobe pneumonia. There is scarring the left lung base. PLEURAL SPACE: No pleural effusion or pneumothorax. BONE:Sternal wires. SOFT TISSUES: Unremarkable. IMPRESSION: Findings suspicious for right basilar pneumonia. DATA REPOSITORY: RADIATION DOSE DELIVERED:
== END 2024-04-18 11:29 ==
LOC: DI 11:14
PROVIDERS: PCP Nurse Practitioner Adult Health; Visit Provider Physician Assistant Medical
DX: R05.9 Cough, unspecified (principal)
CPT/HCPCS: 71046

== ENCOUNTER 2024-04-18 15:12 | Outpatient (REF) | payer MEDICARE, SELFPAY ==
[2024-04-18 15:10] LABS: COVID-19 PCR Negative (Negative); Influenza A PCR Negative (Negative); Influenza B PCR Negative (Negative); RSV PCR Negative (Negative)
[2024-04-18 16:47] LABS: Source Nasopharynx
== END 2024-04-18 15:13 | disposition home or self-care (01) ==
LOC: LBN 15:12
PROVIDERS: PCP Nurse Practitioner Adult Health; Visit Provider Physician Assistant Medical
DX: R05.9 Cough, unspecified (principal)
CPT/HCPCS: 87637

== ENCOUNTER → 2024-05-08 13:04 | Outpatient (BNVA) | payer MEDICARE, SELFPAY | PROVIDERS: PCP Nurse Practitioner Adult Health; Referring Provider Nurse Practitioner Adult Health; Visit Provider Physician Assistant Surgical | DX: J47.9 Bronchiectasis, uncomplicated (principal); R91.1 Solitary pulmonary nodule; J44.1 Chronic obstructive pulmonary disease with (acute) exacerbation | CPT/HCPCS: 99214 ==

== ENCOUNTER 2024-05-16 00:58 | Outpatient (CLI) | payer MEDICARE, SELFPAY ==
--- NOTE | 2024-05-16 11:00 | DI.US_ITS ---
Exam(s) US RENAL EXAM: US RENAL CLINICAL HISTORY: monitoring renal calculi,URETEROLITHIASIS,N20.1. TECHNIQUE: Rosales scale, color and spectral Doppler were used. COMPARISON: CT CT CHEST PE ABD PELVIS W from 04/26/2023 FINDINGS: Right kidney: 9.9cm Echogenicity: Normal Hydronephrosis: No Cyst or mass: 4.4 centimeter cyst lower pole adjacent cyst measuring 3.4 cm. Small cyst at superior pole. Nephrolithiasis: 6 millimeter stone near upper pole. Additional questionable stone measuring 6 beata meters in the mid right kidney. Left kidney: 10.8cm Echogenicity: Normal Hydronephrosis: No Cyst or mass: 12 millimeter cyst posterior mid left kidney. Nephrolithiasis: 3 millimeter stone near lower pole left kidney. Bladder:Normal. Prevoid vol:151 cc Postvoid vol:0 cc IMPRESSION: Bilateral nephrolithiasis. Bilateral renal cysts. No evidence of hydronephrosis. DATA REPOSITORY:
== END 2024-05-16 01:18 ==
LOC: DI 00:58
PROVIDERS: PCP Nurse Practitioner Adult Health; Visit Provider Nurse Practitioner Gerontology
DX: N20.1 Calculus of ureter (principal)
CPT/HCPCS: 76770

== ENCOUNTER → 2024-05-23 09:47 | Outpatient (BNVA) | payer MEDICARE, SELFPAY | PROVIDERS: PCP Nurse Practitioner Adult Health; Referring Provider Nurse Practitioner Adult Health; Visit Provider Nurse Practitioner Gerontology | DX: N20.0 Calculus of kidney (principal); N20.1 Calculus of ureter | CPT/HCPCS: 99213 ==

== ENCOUNTER → 2024-05-24 14:55 | Outpatient (BNVA) | payer MEDICARE, SELFPAY | PROVIDERS: PCP Nurse Practitioner Adult Health; Referring Provider Nurse Practitioner Adult Health; Visit Provider Student in an Organized Health Care Education/Training Program | DX: M70.61 Trochanteric bursitis, right hip (principal); M70.62 Trochanteric bursitis, left hip | CPT/HCPCS: 20610; J1010 ==

== ENCOUNTER 2024-09-09 10:05 | Emergency (ER) | payer MEDICARE, SELFPAY ==
[2024-09-09 10:07] VITALS: BP 129/70; PULSE 75; RESP 20; TEMP 36.4; O2SAT 97
[2024-09-09 10:12] VITALS: BP 129/70; PULSE 75; RESP 20; TEMP 36.4; O2SAT 97
--- NOTE | 2024-09-09 10:30 | DI.RAD_ITS ---
Exam(s) XR CHEST 2V PA LATERAL EXAM: XR CHEST 2V PA LATERAL CLINICAL HISTORY: Productive cough TECHNIQUE: 2D digital imaging was performed of the chest. Two images were obtained. PA and lateral views were obtained. COMPARISON: CR,XR XR CHEST 2V PA LATERAL from 02/19/2024 CR XR CHEST 2V PA LATERAL from 04/18/2024 FINDINGS: MEDIASTINUM: Normal. HEART: Normal. PULMONARY VASCULATURE: Normal. LUNGS: Linear scarring is seen in the left lung base. No focal consolidating infiltrates are present . There is mild bronchial wall thickening seen particularly on the right which can be seen with bron chitis. PLEURAL SPACE: No pleural effusion or pneumothorax. BONE:Within normal limits for the patient's age. Sternal wires are in place. There is an old T12 co mpression deformity. OTHER FINDINGS:Normal. IMPRESSION: Bronchial wall thickening in the perihilar region which can be seen with bronchitis. No focal consol idating infiltrates are present. DATA REPOSITORY: RADIATION DOSE DELIVERED:
--- NOTE | 2024-09-09 10:39 | W.ED.GENAD ---
Discharge Plan Disposition Patient Disposition: Home Condition: Stable Discharge Details Clinical Impression: Bronchitis Primary Care Provider: Jennifer Ruiz ED Provider: Lamar Smith Home Meds and New Rx's Prescriptions: New doxycycline hyclate 100 mg capsule 100 mg PO BID 10 Days Qty: 20 0RF Rx Instructions: Please take 1 capsule by mouth twice daily for the next 10 days Continued magnesium oxide 500 mg capsule 500 mg PO DAILY Qty: 90 3RF acetaminophen 500 mg tablet 1,000 mg PO TID PRN primidone 50 mg tablet 150 mg PO QHS MDD 150 mg Qty: 270 3RF omega-3 fatty acids [Fish Oil] 1 cap PO DAILY cyanocobalamin (vitamin B-12) 1 cap PO DAILY fluticasone furoate-vilanterol [Breo Ellipta] 100-25 mcg/dose blister with device 1 inh inhalation DAILY Qty: 90 3RF Incruse Ellipta 62.5 mcg/actuation blister with device 1 inh inhalation DAILY Qty: 90 3RF acetylcysteine [NAC] 600 mg capsule 600 mg PO BID Qty: 60 7RF albuterol sulfate 2.5 mg /3 mL (0.083 %) solution for nebulization 2.5 mg inhalation Q4H PRN (Reason: shortness of breath or wheezing) Qty: 180 3RF metoprolol succinate 25 mg tablet extended release 24 hr 25 mg PO HS Qty: 90 3RF PreserVision AREDS-2 250-90-40-1 mg capsule 1 tab PO BID aspirin 81 MG tablet,delayed release (DR/EC) 81 mg PO DAILY (DME) Aerochamber Plus Flow-Vu,S Msk 1 EACH spacer 1 ea Miscellaneous PRN polyethylene glycol 3350 [GlycoLax] 527 GM powder 17 g PO DAILY (DME) lancets [OneTouch Delica Lancets] 1 EACH misc 1 ea Miscellaneous DAILY Qty: 100 Rx Instructions: E11.9 to maintain A1C less than 7.0 albuterol sulfate [ProAir HFA] 8.5 GM HFA aerosol inhaler 1 - 2 puff Inhalation Q4-6H PRN Qty: 1 3RF Rx Instructions: DISPENSE ALBUTEROL INHALER BRAND COVERED BY INSURANCE cholecalciferol (vitamin D3) 25 mcg (1,000 unit) tablet 1,000 unit PO BID (DME) nebulizer and accessories See Rx Instructions .Route .MEDSUPPLY Qty: 1 0RF Rx Instructions: As directed (DME) OneTouch Ultra Test Strip See Rx Instructions .Route Qty: 100 3RF Rx Instructions: to check daily morning fasting blood glucose. No insulin. pantoprazole 20 mg tablet,delayed release (DR/EC) See Rx Instructions .ROUTE .COMPLEX Qty: 90 3RF Dose Instruction: TAKE 1 TABLET EVERY MORNINGAT LEAST 30 TO 60 MINUTES BEFORE FIRST MEAL OF THE DAY Rx Instructions: TAKE 1 TABLET EVERY MORNINGAT LEAST 30 TO 60 MINUTES BEFORE FIRST MEAL OF THE DAY ipratropium-albuterol 0.5 mg-3 mg(2.5 mg base)/3 mL solution for nebulization 3 ml INHALATION TID PRN (Reason: shortness of breath or wheezing) Qty: 90 0RF atorvastatin 80 mg tablet See Rx Instructions .ROUTE .COMPLEX Qty: 90 3RF Dose Instruction: TAKE 1 TABLET DAILY Rx Instructions: TAKE 1 TABLET DAILY bupropion HCl 150 mg tablet extended release 24 hr 150 mg PO QAM Qty: 90 3RF citalopram [Celexa] 40 mg tablet 40 mg PO DAILY Discharge Instructions Instructions: Bronchitis, Adult ED Additional Instructions: X-ray shows bronchitis however I am concerned for possible early pneumonia due to your fever body aches and lab work. Please take the antibiotic twice daily with yogurt or probiotic as directed. Continue to use your albuterol inhalers 1 or 2 puffs every 4-6 hours as needed. Please take Tylenol or Ibuprofen with food every 4-6 hours as needed for pain and swelling. You were given a first dose of antibiotic here in the emergency department. Please return to the ER for any worsening shortness of breath, confusion, fever over 100.8 or concerns. Follow up with primary care provider in 3-5 days. Return to ED sooner if any worsening or concerns. Thank you for allowing us to care for you today. Referrals: Jennifer Ruiz MINE TECHNICIAN [Primary Care Provider] - 3 days Discharge Data Discharge Date/Time-TO BE ENTERED AT DEPARTURE: 09/09/24 12:46 HPI General Mode of arrival: ambulatory. Date/Time Provider Initiated Documentation: 09/09/24 10:18. Limitations to Documentation: no limitations. Information obtained by: patient, RN notes reviewed and old records reviewed. HPI Narrative: 84-year-old male presents to the ER with a chief complaint of productive cough, body aches chills and shortness of breath for the last 24 to 48 hours. He reports some sore throat. Also reports that his is ill she has a history of asthma. He does have a history of CAD and has had a bypass in the 90. Denies any chest pain denies any lower extremity swelling. He does have rhonchi auscultated in the bases bilaterally. He is speaking in full sentences no increased work of breathing. Denies any nausea vomiting diarrhea or abdominal pain. Other past medical history includes pneumonia, sepsis, squamous cell carcinoma skin, hypertension diabetes history of CVA, COPD. Related Data Home Medications ?Medication ?Instructions ?Recorded ?Confirmed aspirin 81 mg tablet,delayed 81 mg PO DAILY 09/28/12 09/09/24 release inhalational spacing device 09/28/12 09/09/24 (Aerochamber Plus Flow-Vu,Small Mask) lancets 33 gauge ([employer] ea 10/13/16 09/09/24 Lancets) polyethylene glycol 3350 17 17 g PO DAILY 10/13/16 09/09/24 gram/dose oral powder (GlycoLax) albuterol sulfate 90 mcg/actuation 1 - 2 puff inhalation Q4-6H PRN ##1 04/18/17 09/09/24 aerosol inhaler (ProAir HFA) magnesium oxide 500 mg capsule 500 mg PO DAILY #90 tab-caps 11/02/18 09/09/24 cholecalciferol (vitamin D3) 25 1,000 unit PO BID 11/01/19 09/09/24 mcg (1,000 unit) tablet acetaminophen 500 mg tablet 1,000 mg PO TID PRN 07/15/21 09/09/24 acetylcysteine 600 mg capsule (NAC) 600 mg PO BID #60 caps 10/20/21 09/09/24 nebulizer and accessories #1 ea 04/16/22 09/09/24 citalopram 40 mg tablet (Celexa) 40 mg PO DAILY 04/26/23 09/09/24 cyanocobalamin (vitamin B-12) 1 cap PO DAILY 11/08/23 09/09/24 omega-3 fatty acids 1 cap PO DAILY 11/08/23 09/09/24 fluticasone furoate 100 1 inh inhalation DAILY #90 ea 11/14/23 09/09/24 mcg-vilanterol 25 mcg/dose inhalation powder (Breo Ellipta) umeclidinium 62.5 mcg/actuation 1 inh inhalation DAILY #90 ea 11/14/23 09/09/24 blister powder for inhalation (Incruse Ellipta) blood sugar diagnostic (OneTouch #100 ea 12/30/23 09/09/24 Ultra Test strips) pantoprazole 20 mg tablet,delayed See Rx Instructions .Route 01/23/24 09/09/24 release .COMPLEX #90 tabs vit C 250 mg-vit E 90 mg-zinc 40 1 tab PO BID 02/16/24 09/09/24 mg-copper 1 [id number] capsule (PreserVision AREDS-2) ipratropium 0.5 mg-albuterol 3 mg 3 ml inhalation TID PRN shortness 02/24/24 09/09/24 (2.5 mg base)/3 mL nebulization of breath or wheezing #90 mL soln primidone 50 mg tablet 150 mg (3 x 50 mg) PO QHS #270 tabs 02/28/24 09/09/24 albuterol sulfate 2.5 mg/3 mL 2.5 mg (3 mL) inhalation Q4H PRN 03/28/24 09/09/24 (0.083 %) solution for nebulization shortness of breath or wheezing #180 vials metoprolol succinate 25 mg 25 mg PO HS #90 tab-caps 03/28/24 09/09/24 tablet,extended release 24 hr atorvastatin 80 mg tablet See Rx Instructions .Route 05/28/24 09/09/24 .COMPLEX #90 tabs bupropion HCl 150 mg 24 hr tablet, 150 mg PO QAM #90 tabs 07/16/24 09/09/24 extended release doxycycline hyclate 100 mg capsule 100 mg PO BID Bronchitis 10 days 09/09/24 #20 caps Previous Rx's ?Medication ?Instructions ?Recorded albuterol sulfate 90 mcg/actuation 1 - 2 puff inhalation Q4-6H PRN ##1 04/18/17 aerosol inhaler (ProAir HFA) magnesium oxide 500 mg capsule 500 mg PO DAILY #90 tab-caps 11/02/18 acetylcysteine 600 mg capsule (NAC) 600 mg PO BID #60 caps 10/20/21 nebulizer and accessories #1 ea 04/16/22 fluticasone furoate 100 1 inh inhalation DAILY #90 ea 11/14/23 mcg-vilanterol 25 mcg/dose inhalation powder (Breo Ellipta) umeclidinium 62.5 mcg/actuation 1 inh inhalation DAILY #90 ea 11/14/23 blister powder for inhalation (Incruse Ellipta) blood sugar diagnostic (OneTouch #100 ea 12/30/23 Ultra Test strips) pantoprazole 20 mg tablet,delayed See Rx Instructions .Route 01/23/24 release .COMPLEX #90 tabs ipratropium 0.5 mg-albuterol 3 mg 3 ml inhalation TID PRN shortness 02/24/24 (2.5 mg base)/3 mL nebulization of breath or wheezing #90 mL soln primidone 50 mg tablet 150 mg (3 x 50 mg) PO QHS #270 tabs 02/28/24 albuterol sulfate 2.5 mg/3 mL 2.5 mg (3 mL) inhalation Q4H PRN 03/28/24 (0.083 %) solution for nebulization shortness of breath or wheezing #180 vials metoprolol succinate 25 mg 25 mg PO HS #90 tab-caps 03/28/24 tablet,extended release 24 hr atorvastatin 80 mg tablet See Rx Instructions .Route 05/28/24 .COMPLEX #90 tabs bupropion HCl 150 mg 24 hr tablet, 150 mg PO QAM #90 tabs 07/16/24 extended release doxycycline hyclate 100 mg capsule 100 mg PO BID Bronchitis 10 days 09/09/24 #20 caps Allergies Allergy/AdvReac Type Severity Reaction Status Date / Time codeine AdvReac Unknown Makes pts Verified 09/09/24 10:13 head feel crazy General Stated Complaint: RespSymp YUE: 4 Review of Systems All systems reviewed & are unremarkable except as noted in HPI and below Constitutional Constitutional: Reports as per HPI, Reports body ache(s), Reports chills and Reports fatigue Cardiovascular Cardiovascular: Reports dyspnea on exertion Respiratory Respiratory: Reports chest congestion, Reports cough and Reports dyspnea on exertion Endocrine Endocrine: Reports fatigue Exam Narrative Exam Narrative: Constitutional: Alert and oriented x3. Appears stated age. Normal body habitus. Head: Normocephalic, no trauma. Eyes: Pupils PERRL, Red reflex noted, EOM's intact. Eyelids symmetrical without lesions, discharge, or swelling. ENT: Bilateral TM's WNL, External ear normal to inspection, no mastoid TTP, swelling, or erythema, Nasal turbinates WNL, no nasal discharge. Normal dentition, Posterior pharynx WNL, no exudate. Chest: RRR, Normal S1, S2, distal pulses intact. Resp: Rhonchi noted to bilateral lung bases. Abdomen: Soft, non-distended, Normoactive bowel sounds all 4 quads. Musculoskeletal: Normal gait, Moves all 4 extremities without difficulty. Skin: No suspicious rashes or lesions. Capillary refill less than 2 sec. Neurologic: Cranial nerves II-XII intact. Alert and oriented x 3. Motor: No deficits noted. Sensory: Intact bilaterally all 4 extremities. Hematologic/Lymphatic: No ecchymosis, no lymphadenopathy. Course Vital Signs Vital signs: Vital Signs Temperature 36.4 C 09/09/24 10:07 Pulse 75 09/09/24 10:07 Respiratory Rate 20 09/09/24 10:07 Blood Pressure 129/70 09/09/24 10:07 Pulse Oximetry 97 09/09/24 10:07 Temperature 36.4 C 09/09/24 10:12 Temperature Source Oral 09/09/24 10:12 Pulse 75 09/09/24 10:12 Respiratory Rate 20 09/09/24 10:12 Respiratory Effort Labored 09/09/24 10:32 Respiratory Depth Deep 09/09/24 10:32 Blood Pressure 129/70 09/09/24 10:12 Blood Pressure Position Sitting 09/09/24 10:12 Pulse Oximetry 97 09/09/24 10:12 Oxygen Delivery Method Room Air 09/09/24 10:12 Oxygen Flow Rate 0 09/09/24 10:12 Pain Level 4 09/09/24 10:12 Lab/Test Results Lab/Test Results: 09/09/24 10:32 Blood Blood Culture - Pending 09/09/24 10:32 Blood Blood Culture - Pending Medical Decision Making 84-year-old male presents to the ER with a chief complaint of productive cough, body aches chills and shortness of breath for the last 24 to 48 hours. He reports some sore throat. Also reports that his is ill she has a history of asthma. He does have a history of CAD and has had a bypass in the 90s. Denies any chest pain denies any lower extremity swelling. He does have rhonchi auscultated in the bases bilaterally. He is speaking in full sentences no increased work of breathing. Denies any nausea vomiting diarrhea or abdominal pain. Other past medical history includes pneumonia, sepsis, squamous cell carcinoma skin, hypertension diabetes history of CVA, COPD. Workup ordered including CBC CMP lactate blood cultures x 2, fluid swab chest x-ray. Differential diagnose includes not into COVID, flu, pneumonia, COPD exacerbation, CHF. Will add on a BNP. BNP is 688 which is at patient's baseline, will give 500 cc normal saline bolus. Heart rate 74 patient has maintained his oxygen saturation from 93 to 95% on room air. A gram of ceftriaxone given IV piggyback, will also give doxycycline for most probable pneumonia. Patient does have a elevated white count with the body aches fever and elevated lactate I am more inclined to treat him for pneumonia. Patient remained hemodynamically stable throughout remainder of stay. Given instructions for strict return verbalized understanding. This text was generated using Syntasiaation system, please disregard any oddities of phrase or misspellings. Medical Records Medical records reviewed: Yes I reviewed the patient's medical records. Imaging Data Radiologic Study: Imaging: X-Ray Radiologist's impression: TECHNIQUE: 2D digital imaging was performed of the chest. Two images were obtained. PA and lateral views were obtained. COMPARISON: CR,XR XR CHEST 2V PA LATERAL from 02/19/2024 CR XR CHEST 2V PA LATERAL from 04/18/2024 FINDINGS: MEDIASTINUM: Normal. HEART: Normal. PULMONARY VASCULATURE: Normal. LUNGS: Linear scarring is seen in the left lung base. No focal consolidating infiltrates are present. There is mild bronchial wall thickening seen particularly on the right which can be seen with bronchitis. PLEURAL SPACE: No pleural effusion or pneumothorax. BONE:Within normal limits for the patient's age. Sternal wires are in place. There is an old T12 compression deformity. OTHER FINDINGS:Normal. IMPRESSION: Bronchial wall thickening in the perihilar region which can be seen with bronchitis. No focal consolidating infiltrates are present. Lab Data Lab results reviewed: Yes I reviewed the patient's lab results. Labs: 09/09/24 10:32 Blood Blood Culture - Pending 09/09/24 10:32 Blood Blood Culture - Pending Laboratory Tests Range/Units 09/09/24 09/09/24 10:13 10:55 WBC (4.4-10.8) 10^3/uL 15.46 H RBC (4.36-5.78) 10^6/uL 4.08 L Hgb (13.5-17.5) g/dL 13.1 L Hct (40.0-50.0) % 39.6 L MCV (80-95) fL 97 H MCH (27.0-33.0) pg 32.1 MCHC (32.0-36.0) % 33.1 RDW (11.8-14.1) % 13.1 Plt Count (130-400) 10^3/uL 183 MPV (8.0-11.0) fL 9.6 Immature Gran % % 0.5 Neutrophils % % 85.6 Lymphocytes % % 5.9 Monocytes % % 6.9 Eosinophils % % 0.8 Basophils % % 0.3 Nucleated RBC % (0.0-0.3) % 0.0 Absolute Neutrophils (1.2-6.7) 10^3/uL 13.23 H Absolute Lymphocytes (1.2-3.4) 10^3/uL 0.91 L Absolute Monocytes (0.1-0.8) 10^3/uL 1.07 H Absolute Eosinophils (0.0-0.7) 10^3/uL 0.12 Absolute Basophils (0.0-0.2) 10^3/uL 0.05 VBG Lactate (<or=2.0) mmol/L 2.6 H* Sodium (136-145) mmol/L 140 Potassium (3.5-5.1) mmol/L 4.6 Chloride (98-107) mmol/L 105 Carbon Dioxide (21.0-32.0) mmol/L 24.0 Anion Gap (3-11) mmol/L 11.0 BUN (7-18) mg/dL 24 H Creatinine (0.70-1.30) mg/dL 1.1 Est GFR (CKD-EPI 2020) (mL/min/1.73m2) 65.38 Glucose (74-106) mg/dL 179 H Calcium (8.5-10.1) mg/dL 8.6 Total Bilirubin (0.2-1.0) mg/dL 1.12 H AST (15-37) U/L 23 ALT (16-63) U/L 21 Alkaline Phosphatase (46-116) U/L 92 NT-Pro-B Natriuret Pep (<300) pg/mL 688 H Total Protein (6.4-8.2) g/dL 6.4 Albumin (3.4-5.0) g/dL 3.6 COVID-19 Source Nasopharynx SARS-CoV-2 (PCR) (Negative) Negative Influenza Type A (PCR) (Negative) Negative Influenza Type B (PCR) (Negative) Negative RSV (PCR) (Negative) Negative Quality:SDOH Health Related Social Needs: Health related social needs details N/A PFSH All Active Problems (Updated 09/09/24 @ 12:12 by Lamar Smith NP) Bronchitis (Acute) Subjective memory complaints (Acute ~03/2024) COPD (chronic obstructive pulmonary disease) (Chronic) Trochanteric bursitis, right hip (Acute) DEPO MEDROL 12/09/23; 05/24/24 Trochanteric bursitis, left hip (Acute) Steroid injection: 07/08/2023 Lumbar radiculopathy, acute (Acute ~05/2023) Hip pain (Acute ~05/2023) Vancomycin resistant enterococcus culture positive (Acute) CVA (cerebral vascular accident) (Chronic) Weakness (Acute) Degenerative spondylolisthesis (Acute) 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) Most recent MRI 08/25/2022 showing stenosis; Spine consult 11/01/2022 Degenerative joint disease (DJD) of lumbar spine (Acute) Effusion, right knee (Acute) Arthritis of right glenohumeral joint (Acute) POCUS INJECTION: 11/25/2023 Injection under fluoroscopy: 05/21/2022 Degenerative joint disease of right knee (Acute) Depo-Medrol injection: 05/07/2022 Bronchiectasis (Acute) Adrenal nodule (Acute) Rib pain on left side (Acute) Trochanteric bursitis of both hips (Chronic) Non-alcoholic fatty liver disease (Chronic 09/29/12) Type 2 diabetes mellitus (Chronic) Dx: 10/2018 Obesity (BMI 30-39.9) (Chronic) Advance directive in chart (Chronic 04/22/15) On-file with [facility] as of 04/22/2015 Sensorineural hearing loss, bilateral (Chronic 08/29/17) Osteoarthritis of knee (Chronic 08/13/13) Hypomagnesemia (Chronic 10/07/17) Hyperlipidemia, unspecified (Chronic 07/09/11) LDL GOAL 100 Gastroesophageal reflux disease (Chronic 07/09/11) Essential tremor (Chronic 07/27/11) Essential hypertension (Chronic 07/09/11) GOAL <130/80 Chronic obstructive pulmonary disease (COPD) (Chronic 09/29/12) MILD, 08/2012 PFTs FEV1 2.06 (70% pred and FVC), no response to bronchodilator; 11/17/15 bronchoscopy NC: NEG for [employer], fungus, & bacteria; cytology NEG for malignancy Cardiomyopathy (Chronic 04/10/12) BPH (benign prostatic hyperplasia) (Chronic 04/10/12) ASCVD (arteriosclerotic cardiovascular disease) (Chronic) S/p 5 vessel CABG 1995 Echo 09/27/2014 with normal LVEF Medical History Sepsis Pneumonia Pneumonia Actinic keratitis H/O squamous cell carcinoma of skin 03/09/24 Dr Watkins, [place] Bx to area L upper back Hypertension Diabetes Occipital cerebral infarction Depression (06/04/14) Long-term Celexa Rx; Wellbutrin started 12/2023 [place] of macula of both eyes (~01/2024) 02/15/24 [facility] Actinic keratosis 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 Done at [facility] by Jimmy Cabrera MD Status post coronary artery bypass graft (~1995) Extraction of cataract Arthroplasty of knee Family History Father , CVA at age 80. Essential tremor Heart disease Hypertension Sister Hypertensive disorder, systemic arterial Heart disease Brother , [place] at age 78. Heart disease Essential tremor Brother Heart disease Daughter Essential tremor Social History Smoking/Tobacco Use Status: Former Tobacco Use Tobacco: How many years used: 0 Quit status: quit date established Smoking risk assessment performed?: Yes Alcohol Intake: never Drug use: Never Substance use type: does not use Adopted: No Caregiver/Support person: No Foster care: No Household members: spouse Housing: house Number of Children: 7 number of grandchildren: 25 Communication Needs: Hard of Hearing Education Level: high school Do you need help understanding health information?: Rarely current occupation: Retired [employer] Pets and animals: Yes Pets and animals: dog(s) Sexually active: No Do you think of yourself as: straight/heterosexual Current gender identity: male What is your relationship status?: How often do you talk on the phone with friends or family?: three or more times per week How often do you get together with friends or relatives?: once per week How often do you attend orthodoxy or zoroastrianism services?: 4 or more times per year Do you belong to any clubs or organized social groups?: yes Panel score (0-1 are the most socially isolated patients): 4 What type of physical activity do you participate in: walking and other Details: House work Duration: 15-30 minutes/day Frequency: 3-4 times per week Lindy/Hoahaoism: Religion Seatbelt use: always Helmet use: Yes Helmet use: other Details: No reason Drive intox or ride w/intox driver license technician: No Water heater temp set <120 deg: Yes Working smoke detector in home: Yes Fire extinguisher in home: Yes Carbon monox detector in home: Yes Do you feel safe at home: Yes Do you feel safe in your relationship?: Yes Additional Social history: He has 5 step-children in addition to 3 biological.
[2024-09-09 10:57] LABS: COVID-19 PCR Negative (Negative); Influenza A PCR Negative (Negative); Influenza B PCR Negative (Negative); RSV PCR Negative (Negative)
[2024-09-09 10:58] LABS: Source Nasopharynx
[2024-09-09 11:04] LABS: Abs Immature Grans 0.07 10^3/uL (0.0-0.06); Absolute Basophil Count 0.05 10^3/uL (0.0-0.2); Absolute Lymphocyte Count 0.91 10^3/uL (1.2-3.4); Basophils % 0.3 %; Eosinophils % 0.8 %; HCT 39.6 % (40.0-50.0); HGB 13.1 g/dL (13.5-17.5); Immature Grans % 0.5 %; Lymphocytes % 5.9 %; MCH 32.1 pg (27.0-33.0); MCHC 33.1 % (32.0-36.0); MCV 97 fL (80-95); MPV 9.6 fL (8.0-11.0); Monocytes % 6.9 %; Neutrophils % 85.6 %; Platelet Count 183 10^3/uL (130-400); RBC 4.08 10^6/uL (4.36-5.78); RDW 13.1 % (11.8-14.1); RDW-SD 46.5 fL; WBC 15.46 10^3/uL (4.4-10.8)
[2024-09-09 11:07] LABS: Lactate 2.6 mmol/L (<or=2.0)
[2024-09-09 11:08] LABS: Absolute Eosinophil Count 0.12 10^3/uL (0.0-0.7); Absolute Monocyte Count 1.07 10^3/uL (0.1-0.8); Absolute Neutrophil Count 13.23 10^3/uL (1.2-6.7)
[2024-09-09 11:30] LABS: ALT 21 U/L (16-63); AST 23 U/L (15-37); Albumin 3.6 g/dL (3.4-5.0); Alkaline Phosphatase 92 U/L (46-116); BUN 24 mg/dL (7-18); Bilirubin, Total 1.12 mg/dL (0.2-1.0); CREATININE 1.1 mg/dL (0.70-1.30); Calcium 8.6 mg/dL (8.5-10.1); Chloride 105 mmol/L (98-107); Estimated GFR 65.38 (mL/min/1.73m2); Glucose 179 mg/dL (74-106); Potassium 4.6 mmol/L (3.5-5.1); Sodium 140 mmol/L (136-145); Total Protein 6.4 g/dL (6.4-8.2)
[2024-09-09 11:32] LABS: NT-proBNP 688 pg/mL (<300)
[2024-09-09 11:34] VITALS: PULSE 68; RESP 0; O2SAT 95
[2024-09-09 11:40] VITALS: PULSE 68; O2SAT 95
[2024-09-09 11:46] VITALS: BP 118/52; PULSE 67; PULSE 69; O2SAT 92
[2024-09-09] MEDS: Normal Saline 500 ML IV (11:48)
[2024-09-09] MEDS: cefTRIAXone 1 GM/50 ML BAG IVPB (11:48)
[2024-09-09] MEDS: Albuterol/Ipratropium 3 ML UPD VIAL UPD (11:48)
[2024-09-09] MEDS: methylPREDNISolone SUCC 125 MG VIAL IVP (11:49)
[2024-09-09 11:50] VITALS: PULSE 66; RESP 23; O2SAT 92
[2024-09-09] MEDS: Doxycycline Hyclate 100 MG, 2 CAPS/BTL PO (12:21)
[2024-09-09] MEDS: Doxycycline Hyclate 100 MG CAP PO (12:21)
== END 2024-09-09 12:46 | disposition home or self-care (01) ==
PROVIDERS: Emergency Provider Registered Nurse Emergency; PCP Nurse Practitioner Adult Health
DX: J40 Bronchitis, not specified as acute or chronic (principal); R06.02 Shortness of breath; Z87.09 Personal history of other diseases of the respiratory system; Z86.79 Personal history of other diseases of the circulatory system
CPT/HCPCS: 36415; 80053; 87040; 87637; 94640; 96365; 96375; 99284; 71046; 83605; 83880; 85025; J0696; J2919; J7620

== ENCOUNTER → 2024-10-11 14:24 | Outpatient (BNVA) | payer MEDICARE, SELFPAY | PROVIDERS: PCP Nurse Practitioner Adult Health; Referring Provider Nurse Practitioner Adult Health; Visit Provider Student in an Organized Health Care Education/Training Program | DX: M19.011 Primary osteoarthritis, right shoulder (principal) | CPT/HCPCS: 20611; J1010 ==

== ENCOUNTER → 2024-10-16 13:04 | Outpatient (BNVA) | payer MEDICARE, SELFPAY | PROVIDERS: PCP Nurse Practitioner Adult Health; Referring Provider Nurse Practitioner Adult Health; Visit Provider Student in an Organized Health Care Education/Training Program | DX: M70.61 Trochanteric bursitis, right hip (principal); M70.62 Trochanteric bursitis, left hip; M54.41 Lumbago with sciatica, right side; M54.42 Lumbago with sciatica, left side; G89.29 Other chronic pain; J44.9 Chronic obstructive pulmonary disease, unspecified | CPT/HCPCS: 99214 ==

== ENCOUNTER → 2024-11-07 12:42 | Outpatient (BNVA) | payer MEDICARE, SELFPAY | PROVIDERS: PCP Nurse Practitioner Adult Health; Referring Provider Nurse Practitioner Adult Health; Visit Provider Physician Assistant Surgical ==

== ENCOUNTER 2024-11-07 13:35 | Outpatient (CLI) | payer MEDICARE, SELFPAY ==
[2024-11-07 13:59] LABS: Abs Immature Grans 0.03 10^3/uL (0.0-0.06); Absolute Basophil Count 0.05 10^3/uL (0.0-0.2); Absolute Eosinophil Count 0.25 10^3/uL (0.0-0.7); Absolute Lymphocyte Count 1.22 10^3/uL (1.2-3.4); Absolute Monocyte Count 0.51 10^3/uL (0.1-0.8); Absolute Neutrophil Count 5.77 10^3/uL (1.2-6.7); Basophils % 0.6 %; Eosinophils % 3.2 %; HCT 40.8 % (40.0-50.0); HGB 13.9 g/dL (13.5-17.5); Immature Grans % 0.4 %; Lymphocytes % 15.6 %; MCH 32.1 pg (27.0-33.0); MCHC 34.1 % (32.0-36.0); MCV 94 fL (80-95); MPV 9.5 fL (8.0-11.0); Monocytes % 6.5 %; Neutrophils % 73.7 %; Platelet Count 226 10^3/uL (130-400); RBC 4.33 10^6/uL (4.36-5.78); RDW 13.2 % (11.8-14.1); RDW-SD 45.5 fL; WBC 7.83 10^3/uL (4.4-10.8)
[2024-11-07 14:36] LABS: NT-proBNP 305 pg/mL (<300)
== END 2024-11-07 13:36 | disposition home or self-care (01) ==
LOC: LBO 13:36
PROVIDERS: PCP Nurse Practitioner Adult Health; Visit Provider Physician Assistant Surgical
DX: J44.9 Chronic obstructive pulmonary disease, unspecified (principal); I50.9 Heart failure, unspecified
CPT/HCPCS: 36415; 99214; 83880; 85025

== ENCOUNTER 2024-11-20 00:32 | Outpatient (CLI) | payer MEDICARE, SELFPAY ==
--- NOTE | 2024-11-20 06:15 | DI.MRI_ITS ---
Exam(s) MR LUMBAR SPINE WO EXAM: MR LUMBAR SPINE WO CLINICAL HISTORY: Pain,LUMBAR RADICULOPATHY,ACUTE,POST LAMINECTOMY SYNDROME. TECHNIQUE: Multiplanar multisequence MRI of the Lumbar spine was performed. COMPARISON: MR MR LUMBAR SPINE WO from 08/25/2022 CR XR LUMBAR SPINE COMPLETE from 06/08/[address] LOWER EXTREMITY RT WO from 02/27/2024 FINDINGS: There are multilevel posterior fusion rods spanning L3 through L5 with laminectomy defects at these l evels and the intrapedicular screws at these levels appear to remain in satisfactory position relativ e to the vertebral endplates. Posteriorly there is a partially septated extradural fluid collection at the laminectomy sites which measures 5 cm craniocaudal by 3 cm AP by 5 cm wide. It does not appear to communicate with the spina l canal and is most probably postoperative seroma Conus medullaris is at normal level. There is no evidence of conus mass nor subjacent clumping of in trathecal nerve roots to suggest arachnoiditis. The distal thecal sac appears unremarkable.There is no evidence of Tarlov intrasacral cysts nor other significant findings within the sacral canal Bones:There are no fractures nor ominous osseous lesions in the lumbar vertebral bodies and visualize d sacrum. T11 wedge compression fracture appears unchanged from MRI of 08/25/2022 there is no marrow edema within this vertebral body With respect to the individual levels... T11-12: Unremarkable T12-L1: There is chronic disc space narrowing and anterior osseous lipping at this level again noted. Posteriorly there is broad annular bulging again noted, similar to previous. Central canal dimensi ons are lower normal. There is no significant foraminal stenosis on either side at this level. This level exhibits minimal if any significant change compared to the August 2022 MRI. L1-2: This level exhibits chronic disc height loss and anterior osseous lipping. Posteriorly there i s retrolisthesis of L1 upon L2 again noted. There is mild-moderate central canal stenosis at this le taylor due to the retrolisthesis. There is also moderate bilateral foraminal stenosis again evident. M ild degenerative changes in both facet joints. L2-3: This is 1 level above the fusion and exhibits moderate disc space narrowing. There is severe s curt canal stenosis at this level due to broad annular bulging at this level, this extending into th e exiting right neural foramen causing severe right-sided foraminal stenosis. Moderate left-sided fo raminal stenosis is also noted this level. There is facet arthropathy. No listhesis but there are M odic type on sub endplate marrow edema changes at this level. L3-4: Fused level. Bilateral laminectomies at this level. There is broad annular bulging at this le taylor again noted but there is presently no spinal canal stenosis, this due to the bilateral laminectom ies. The thecal sac exhibits normal round diameter at this level. There is severe right-sided ariana inal stenosis at this level. Mild left-sided foraminal stenosis. L4-5: This is a fused level with bilateral laminectomy which exhibits preserved disc height and uncha nged mild anterolisthesis of L4 upon L5. There is mild annular bulging. Central canal dimensions ar e lower normal. There is moderate bilateral foraminal stenosis on this side, similar to previous. L5-S1: This level is 1 below the fusion. There is preserved disc height. There is no disc herniatio n. Central canal dimensions are lower normal. Mild bilateral foraminal stenosis. Degenerative dalton ges in both facet joints. Soft tissues: No evidence of paraspinal mass nor fluid collections. Multiple cysts are noted in the kidneys IMPRESSION: 1. Compared to the prior MRI scan of August 2022 there has been interval multilevel laminectomies a nd multilevel posterior fusion at L3 through L5, inclusive. There is significantly less spinal canal stenosis at these levels now evident. There is, however, severe spinal canal stenosis at the L2-3 l evel, this being 1 level above the fusion. This is related to broad annular bulging at this level an d there is also an element of bilateral foraminal stenosis at this level noted more severe on the rig ht side. 2. There is a posterior extradural fluid collection at the L3-4-5 level at the laminectomy sites whic h does not appear to communicate with the spinal canal-thecal sac and exhibits some internal septatio ns and is probably postoperative seroma. 3. Other findings as above. DATA REPOSITORY:
== END 2024-11-20 00:52 ==
LOC: DI 00:32
PROVIDERS: PCP Nurse Practitioner Adult Health; Visit Provider Anesthesiology Pain Medicine
DX: M54.16 Radiculopathy, lumbar region (principal); M96.1 Postlaminectomy syndrome, not elsewhere classified
CPT/HCPCS: 72148

== ENCOUNTER → 2025-01-08 10:42 | Outpatient (BNVA) | payer MEDICARE, SELFPAY | PROVIDERS: PCP Nurse Practitioner Adult Health; Referring Provider Nurse Practitioner Adult Health; Visit Provider Physician Assistant Surgical | DX: J47.9 Bronchiectasis, uncomplicated (principal); R91.1 Solitary pulmonary nodule; J44.1 Chronic obstructive pulmonary disease with (acute) exacerbation | CPT/HCPCS: 99214 ==

== ENCOUNTER → 2025-01-15 13:29 | Outpatient (BNVA) | payer MEDICARE, SELFPAY | PROVIDERS: PCP Nurse Practitioner Adult Health; Referring Provider Nurse Practitioner Adult Health; Visit Provider Student in an Organized Health Care Education/Training Program | DX: M70.61 Trochanteric bursitis, right hip (principal); M70.62 Trochanteric bursitis, left hip; M54.42 Lumbago with sciatica, left side; M54.41 Lumbago with sciatica, right side; G89.29 Other chronic pain | CPT/HCPCS: 99213 ==

== ENCOUNTER → 2025-01-21 09:51 | Outpatient (BNVA) | payer MEDICARE, SELFPAY | PROVIDERS: PCP Nurse Practitioner Adult Health; Referring Provider Nurse Practitioner Adult Health; Visit Provider Internal Medicine Pulmonary Disease | DX: J44.1 Chronic obstructive pulmonary disease with (acute) exacerbation (principal); J39.8 Other specified diseases of upper respiratory tract; R05.3 Chronic cough | CPT/HCPCS: 99214 ==

== ENCOUNTER 2025-01-29 14:38 | Outpatient (CLI) | payer MEDICARE, SELFPAY ==
--- NOTE | 2025-01-29 14:15 | DI.RAD_ITS ---
Exam(s) XR SHOULDER RT COMPLETE 2+V EXAM: XR SHOULDER RT COMPLETE 2+V CLINICAL HISTORY: evaluation of right shoulder. TECHNIQUE: 2D digital imaging was performed. COMPARISON: CR XR SHOULDER RT COMPLETE 2+V from 05/07/2022 FINDINGS: Two views No evidence of acute fracture or dislocation glenohumeral joint. No abnormal soft tissue calcifications. There are advanced osteoarthritic degenerative changes in the glenohumeral joint with joint space narrowing and osteophytes on the inferior articular surface of the humeral head and inferior osseous glenoid. Also noted are degenerative subarticular cysts in the osseous glenoid. Minimal degenerative changes are noted in the AC joint. No osseous lesions Sternotomy wires are noted. 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 This was also evident on prior x-rays of 05/07/2022. Other findings as above. DATA REPOSITORY: RADIATION DOSE DELIVERED:
== END 2025-01-29 14:39 | disposition home or self-care (01) ==
LOC: DIORS 14:38
PROVIDERS: PCP Nurse Practitioner Adult Health; Referring Provider Nurse Practitioner Adult Health; Visit Provider Student in an Organized Health Care Education/Training Program
DX: M19.011 Primary osteoarthritis, right shoulder (principal); M75.101 Unspecified rotator cuff tear or rupture of right shoulder, not specified as traumatic; Z98.890 Other specified postprocedural states
CPT/HCPCS: 99214; 73030

== ENCOUNTER → 2025-02-26 11:07 | Outpatient (BNVA) | payer MEDICARE, SELFPAY | PROVIDERS: PCP Nurse Practitioner Adult Health; Visit Provider Psychiatry & Neurology Neurology | DX: I63.9 Cerebral infarction, unspecified (principal); G25.0 Essential tremor; E11.59 Type 2 diabetes mellitus with other circulatory complications; I10 Essential (primary) hypertension; Z79.02 Long term (current) use of antithrombotics/antiplatelets | CPT/HCPCS: 99214 ==

== ENCOUNTER 2025-03-21 11:42 | Outpatient (CLI) | payer MEDICARE, SELFPAY ==
--- NOTE | 2025-03-21 06:00 | DI.RAD_ITS ---
Exam(s) XR PAIN CLINIC LUMBAR SP 2V EXAM: XR PAIN CLINIC LUMBAR SP 2V CLINICAL HISTORY: DX: Lumbar Spondylosis. TECHNIQUE: Fluoroscopy was provided for the referring physician for guidance with performing pain clinic injection procedure. COMPARISON: No exams were available for comparison FINDINGS: Please see procedure note for details. Fluoro time: 58.7 seconds RADIATION DOSE DELIVERED: gino Groves=26.8 mGy
[2025-03-21 12:08] VITALS: BP 117/70; PULSE 86; RESP 20; TEMP 36.6; O2SAT 98
[2025-03-21 12:33] VITALS: PULSE 93; PULSE 94; O2SAT 94
[2025-03-21 12:34] VITALS: BP 140/82; PULSE 93; RESP 25; O2SAT 95
[2025-03-21 12:40] VITALS: PULSE 90; RESP 23; O2SAT 93
[2025-03-21 12:46] VITALS: BP 138/73; PULSE 92; RESP 24; O2SAT 93
[2025-03-21 12:50] VITALS: PULSE 91; RESP 20; O2SAT 92
[2025-03-21] MEDS: Bupivacaine 0.5% Pres-Free 10 ML VIAL IJ (13:01)
[2025-03-21] MEDS: Nerve Block Tray 1 EACH MC (13:01)
[2025-03-21] MEDS: Omnipaque 240 MG/ML 50 ML BTL IJ (13:01)
--- NOTE | 2025-03-21 13:04 | PDOC.PAIN ---
Date of service: 03/21/25 Time of Service: 13:04 Pain Managment Procedure Note Procedure Note Procedure Note: PROCEDURE NOTE Bilateral Lumbar Medial Branch Blocks Date of Service: March 21, 2025 Patient: Daniel Villavicencio Provider: Nathaniel Conley DO, MPH Daniel Villavicencio has been [facility] to the [facility] for lumbar medial branch blocks. Pre-operative diagnosis: Lumbar Spondylosis without Myelopathy ICD-10 M47.816 Post-operative diagnosis: Same Pre-procedure pain: VAS= 7/10 COMMENTS: I previously evaluated him in the clinic. He has L3-L5 fusion. Maikol was interviewed and the medical records were reviewed. There were no medical, pharmacologic, radiographic or other structural contraindications to attempting fluoroscopically guided local anesthetic lumbar medial branch blocks. Risks and potential side effects were discussed. I also discussed the potential benefit(s) of the procedure with Daniel, and voiced concerns were addressed. After Daniel was completely informed about the procedure, the printed consent form was signed. A standard time-out procedure was performed. Daniel was placed in the prone position on the fluoroscopy table. Automated blood pressure cuff and pulse oximeter were applied. The skin entry points for approaching the anatomic target points of the segmental medial branches of bilateral L1, L2, L4, andL5 were identified with fluoroscopy and marked. The skin at the target site area was thoroughly prepared with Chlorhexadine. The skin was then draped. Next, a 25 gauge 3.5 spinal needle was placed under fluoroscopic guidance down on to the target point (the articular pillar) for each respective segmental medial branch. Position was confirmed in A/P and lateral views. Aspiration revealed no blood or clear fluid. Next, 0.25ml of omnipaque 240 was injected at each level. No contrast following a vascular or neural pattern was visualized under continuous fluoroscopy. Next, 0.25 ml of preservative-free 0.5% bupivicaine was injected at each level. There was no unusual discomfort expressed by Daniel. The needles were withdrawn without difficulty. (49 mls of Omnipaque was wasted) Daniel was observed and was without hemodynamic, neurologic, or allergic reactions.? Fluoroscopic images were digitally archived. Provacative testing using the Modified Peoples's facet loading test- Left side Right Side Directly before the block VAS (0-10) = 7/10 VAS (0-10) = 7/10 Five minutes after the block VAS (0-10) = 1/10 VAS (0-10) = 1/10 Percentage relief obtained with this diagnostic block 90% 90% Any improved physical functioning directly after the blocks? Able to move his low back with ease. Follow up plans and appointments were discussed with Daniel. Daniel was instructed to keep careful note of how the usual pain was modified by these injections. Specifically, to keep a pain diary for the next 4 hours using a numeric pain scale of 0-10 and report these results. Post procedure instruction was given as documented in the nursing documentation and having met discharge criteria, the patient was [facility]. Based on the medial branches blocked today, if they patient has adequate relief and we are able to proceed to radiofrequency ablation, the treatment should result in the denervation of the bilateral L2-L3 and L5-S1 facet joints. We would expect to denervate a total of 4 facets during the radiofrequency ablation. COMMENTS: No apparent complications. Post-procedure pain: VAS= 1/10 Daniel will call back with 0-4 hour post-procedure pain scores. I personally performed the entire procedure. NATHANIEL CONLEY DO, MPH ABPM&R-subspecialty board certification in Pain Medicine [facility] Coding Conscious Sedation used for procedure: No CPT Codes: LMBB (includes Fluoro) Lumbar/Sacral, 2nd lvl - 35392 (3092416 ~G) LMBB (includes Fluoro) Lumbar/Sacral, single lvl *BILATERAL* - 6662641 (7633803~G5) Additional Codes: Date of Service (83884) Date of service: 03/21/25 Diagnoses: Lumbosacral spondylosis without myelopathy
== END 2025-03-21 11:43 | disposition home or self-care (01) ==
PROVIDERS: PCP Nurse Practitioner Adult Health; Visit Provider Preventive Medicine Occupational Medicine
DX: M54.50 Low back pain, unspecified (principal); M47.816 Spondylosis without myelopathy or radiculopathy, lumbar region
CPT/HCPCS: 64493; 64494; 72100; J0665; Q9967

== ENCOUNTER 2025-04-04 10:26 | Outpatient (CLI) | payer MEDICARE, SELFPAY ==
--- NOTE | 2025-04-04 06:00 | DI.RAD_ITS ---
Exam(s) XR PAIN CLINIC LUMBAR SP 2V EXAM: XR PAIN CLINIC LUMBAR SP 2V CLINICAL HISTORY: DX: Lumbar Spondylosis TECHNIQUE: 2D and realtime digital imaging was performed. CONTRAST MATERIAL: Refer to procedure report. COMPARISON: No exams were available for comparison FINDINGS: Fluoroscopy was provided for Dr. Conley during the performance of a lumbar medial branch block. Please refer to the procedure report for complete details. Ka,r=35.6 mGy IMPRESSION: RADIATION DOSE DELIVERED: 0.0 0.0 0
[2025-04-04 10:41] VITALS: BP 122/62; PULSE 72; RESP 19; TEMP 36.4; O2SAT 97
[2025-04-04 11:17] VITALS: PULSE 69; PULSE 75; RESP 12; O2SAT 96
[2025-04-04 11:18] VITALS: BP 138/66; PULSE 69; PULSE 70; RESP 22; O2SAT 96
[2025-04-04 11:20] VITALS: PULSE 69; PULSE 70; RESP 21; O2SAT 95
[2025-04-04 11:30] VITALS: BP 146/76; PULSE 70; RESP 18; O2SAT 93
[2025-04-04 11:31] VITALS: PULSE 69; PULSE 70; RESP 19; O2SAT 95
[2025-04-04] MEDS: Omnipaque 240 MG/ML 50 ML BTL IJ (11:46)
[2025-04-04] MEDS: Nerve Block Tray 1 EACH MC (11:46)
[2025-04-04] MEDS: Bupivacaine 0.5% Pres-Free 10 ML VIAL IJ (11:46)
--- NOTE | 2025-04-08 07:35 | PDOC.PAIN ---
Date of service: 04/04/25 Time of Service: 11:30 Pain Managment Procedure Note Procedure Note Procedure Note: PROCEDURE NOTE Bilateral Lumbar Medial Branch Blocks Date of Service: April 04, 2025 Patient: Daniel Villavicencio Provider: Nathaniel Conley DO, MPH Daniel Villavicencio has been referred to the [facility] for lumbar medial branch blocks. Pre-operative diagnosis: Lumbar Spondylosis without Myelopathy ICD-10 M47.816 Post-operative diagnosis: Same Pre-procedure pain: VAS= 5/10 COMMENTS: He did very well with his first LMBB on 03/21/25. He does have L3-L5 fusion. Daniel? was interviewed and the medical records were reviewed. There were no medical, pharmacologic, radiographic or other structural contraindications to attempting fluoroscopically guided local anesthetic lumbar medial branch blocks. Risks and potential side effects were discussed. I also discussed the potential benefit(s) of the procedure with Daniel, and voiced concerns were addressed. After Daniel was completely informed about the procedure, the printed consent form was signed. A standard time-out procedure was performed. Daniel was placed in the prone position on the fluoroscopy table. Automated blood pressure cuff and pulse oximeter were applied. The skin entry points for approaching the anatomic target points of the segmental medial branches of bilateral L1, L2, L4 and L5 were identified with fluoroscopy and marked. The skin at the target site area was thoroughly prepared with Chlorhexadine. The skin was then draped. Next, a 25 gauge 3.5 spinal needle was placed under fluoroscopic guidance down on to the target point (the articular pillar) for each respective segmental medial branch. Position was confirmed in A/P and lateral views. Aspiration revealed no blood or clear fluid. Next, 0.25ml of omnipaque 240 was injected at each level. No contrast following a vascular or neural pattern was visualized under continuous fluoroscopy. Next, 0.25 ml of preservative-free 0.5% bupivicaine was injected at each level. There was no unusual discomfort expressed by Daniel. The needles were withdrawn without difficulty. (49 mls of Omnipaque was wasted) Daniel was observed and was without hemodynamic, neurologic, or allergic reactions.? Fluoroscopic images were digitally archived. Provacative testing using the Modified Peoples's facet loading test- Left side Right Side Directly before the block VAS (0-10) = 5/10 VAS (0-10) = 5/10 Five minutes after the block VAS (0-10) = 1/10 VAS (0-10) = 1/10 Percentage relief obtained with this diagnostic block 90% 90% Any improved physical functioning directly after the blocks? Able to move his low back with ease. Follow up plans and appointments were discussed with Daniel. Daniel was instructed to keep careful note of how the usual pain was modified by these injections. Specifically, to keep a pain diary for the next 4 hours using a numeric pain scale of 0-10 and report these results. Post procedure instruction was given as documented in the nursing documentation and having met discharge criteria, the patient was discharged from the [facility]. Based on the medial branches blocked today, if they patient has adequate relief and we are able to proceed to radiofrequency ablation, the treatment should result in the denervation of the bilateral L2-L3 and L5-S1 facet joints. We would expect to denervate a total of 4 facets during the radiofrequency ablation. COMMENTS: No apparent complications. Post-procedure pain: VAS= 1/10 Daniel will call back with 0-4 hour post-procedure pain scores. I personally performed the entire procedure. NATHANIEL CONLEY DO, MPH ABPM&R-subspecialty board certification in Pain Medicine [facility] [facility] Coding Conscious Sedation used for procedure: No CPT Codes: LMBB (includes Fluoro) Lumbar/Sacral, 2nd lvl - 46626 (6106061 ~G) LMBB (includes Fluoro) Lumbar/Sacral, single lvl *BILATERAL* - 7197517 (1827825~G5) Additional Codes: Date of Service (73709) Date of service: 04/04/25 Diagnoses: Lumbosacral spondylosis without myelopathy
== END 2025-04-04 10:27 | disposition home or self-care (01) ==
LOC: PC 10:26
PROVIDERS: PCP Nurse Practitioner Adult Health; Visit Provider Preventive Medicine Occupational Medicine
DX: M54.50 Low back pain, unspecified (principal); M47.816 Spondylosis without myelopathy or radiculopathy, lumbar region
CPT/HCPCS: 64493; 64494; 72100; J0665; Q9967

== ENCOUNTER → 2025-04-19 09:49 | Outpatient (BNVA) | payer MEDICARE, SELFPAY | PROVIDERS: PCP Nurse Practitioner Adult Health; Referring Provider Nurse Practitioner Adult Health; Visit Provider Physician Assistant | DX: M17.0 Bilateral primary osteoarthritis of knee (principal) | CPT/HCPCS: 20610; J1010 ==

== ENCOUNTER 2025-04-25 07:10 | Outpatient (CLI) | payer MEDICARE, SELFPAY ==
[2025-04-25] VITALS (15 sets, daily range): BP systolic 124–150; BP diastolic 65–86; PULSE 64–74; RESP 14–22; TEMP 37; O2SAT 91–96
--- NOTE | 2025-04-25 06:00 | DI.RAD_ITS ---
Exam(s) XR PAIN CLINIC LUMBAR SP 2V EXAM: XR PAIN CLINIC LUMBAR SP 2V CLINICAL HISTORY: DX: Lumbar Spondylosis TECHNIQUE: 2D and realtime digital imaging was performed. CONTRAST MATERIAL: Refer to procedure report. COMPARISON: No exams were available for comparison FINDINGS: Fluoroscopy was provided for Dr. Conley during the performance of a lumbar radiofrequency ablation. Please refer to the procedure report for complete details. Ka,r=27 mGy IMPRESSION: RADIATION DOSE DELIVERED: 0.0 0.0 0
[2025-04-25] MEDS: Midazolam 2 MG/2 ML VIAL IVP (08:30)
[2025-04-25] MEDS: fentaNYL 100 MCG/2 ML VIAL IJ (08:30)
[2025-04-25] MEDS: Lactated Ringers 500 ML 30 ML IV (08:42)
[2025-04-25] MEDS: Nerve Block Tray 1 EACH MC (08:42)
[2025-04-25] MEDS: methylPREDNISolone ACETATE 40 MG/ML VIAL IJ (09:14)
[2025-04-25] MEDS: Lidocaine 2% Multi-Dose 20 ML VIAL IJ (09:14)
[2025-04-25] MEDS: Bupivacaine 0.5% Pres-Free 10 ML VIAL IJ (09:15)
--- NOTE | 2025-04-28 20:02 | PDOC.PAIN ---
Date of service: 04/28/25 Time of Service: 09:50 Pain Managment Procedure Note Procedure Note Procedure Note: PROCEDURE NOTE BILATERAL LUMBAR RADIOFREQUENCY ABLATION Date of Service: April 25, 2025 Patient:Daniel Ontiveros? Provider:? Nathaniel Conley DO, MPH Daniel Villavicencio has been referred to the [facility] for Bilateral Lumbar Radiofrequency Ablation with the Avanos Machine.? Pre Operative Diagnosis: Lumbosacral Spondylosis without Myelopathy ICD-10 M47.816 Post Operative Diagnosis: Same Pre procedure pain; VAS= 8/10 Comments: He did very well with the LMBBs X 2 PROCEDURE: Radiofrequency Ablation of medial branches - bilateral L1, L2, L4, and L5 Daniel?was interviewed and the medical record was reviewed.? There were no medical, pharmacologic, radiographic or other structural contraindications to attempting fluoroscopically guided BILATERAL Lumbar Radiofrequency Ablation.?Risks and expected side effects as well as potential benefit of the procedure were reviewed with Daniel, and the patient's voiced concerns were addressed.? The printed consent form was signed.? Standard time-out procedure was performed. Daniel was brought into the fluoroscopy suite and positioned into the prone position on the fluoroscopy table and allowed to adjust to a position of comfort. A grounding pad was placed on the left abdomen. The sterile field was prepared using chlorhexidine preparation of the skin and sterile draping. Local anesthesia superficial and deep was provided by local infiltration of 2% lidocaine. A 17g 100 mm radiofrequency introducer needle was placed to the planned anatomic targets guided with intermittent fluoroscopy with a perpendicular approach to terminally place at the junction of the superior articular process and the transverse process of the bilateral L2. L3, and L5 and the base of the sacral ala on the bilateral for the L5 medial branch nerve and the area between base of the sacral ala to the S1 foramen bilaterally. The stylets were removed and radiofrequency probes with a 4mm active tip were then inserted. Needle tip position of the probes was verified in the AP, oblique, and lateral views. At each site, the medial branch nerve was stimulated at 2 Hz to a maximum 1-2 volts determined to finalize safe needle and electrode placement. The patient was awake and responsive during this portion of the procedure. Each target was anesthetized with 1-2 mL of 2 % Lidocaine for anesthesia for lesioning and then each target was lesioned at 80 degrees Celsius for 2 minutes and 30 seconds. Tissue impedances were noted to be between 250 and 500 Ohms. Next I injected 1/4 cc of Depomedrol (40 mg/cc) followed by 1/2 cc of 0.5% Bupivacaine. There was no unusual discomfort expressed by Daniel. The needles were withdrawn without difficulty and bandages placed over the needle placement sites, the patient was observed and was without hemodynamic, neurologic, or allergic reactions. Fluoroscopic images were digitally archived. POST PROCEDURE EVALUATION: IMPRESSION: 1. Summary of procedure. Medication given is documented in the MAR. 2. Follow up plan: Daniel to contact [facility] as needed.?This procedure may be repeated if the patient achieves at least 50% improvement in pain/function for at least 6 months. 3. Estimated Blood Loss: <5 mls 4. Fluoroscopy time: Documented in the EMR. Follow up plans and appointments were discussed with the Daniel. Post procedure instruction was given as documented in nursing documentation and having met discharge criteria, Daniel was discharged from the [facility]. This advanced procedure uses cooled radiofrequency energy to safely target the sensory nerves responsible for sending pain signals.1 A radiofrequency generator transmits a small current of Radiofrequency energy through an insulated electrode, or probe, placed within tissue. Ionic heating, produced by the friction of charged molecules, thermally deactivates the nerves responsible for sending pain signals to the brain. Radiofrequency energy heats and cools the tissue at the site of pain. Unlike other Radiofrequency procedures, Coolief circulates water through the device while heating nervous tissue to create a larger treatment area, increasing the opportunity to help with pain. This combination targets the pain-transmitting nerves without excessive heating, leading to pain relief. COMMENTS: No apparent complications. Post-procedure pain: VAS= 0/10. The bilateral L3-L4 and L5-S1 facet joints were targeted. He has an L4-L5 fusion. I personally completed the entire procedure. NATHANIEL CONLEY DO, MPH ABPM&R - Subspecialty board certification in Pain Medicine [facility] Coding Conscious Sedation used for procedure: Yes CPT Codes: Single Facet Joint, Lumbar/Sacral *BILATERAL* - 793549K (4032755U~G) Single Facet Joint, Lumbar/Sacral cool each add'l - 95269I (09603L10~G) Additional Codes: Date of Service (26248) Date of service: 04/28/25 Diagnoses: Lumbosacral spondylosis without myelopathy
== END 2025-04-25 07:11 | disposition home or self-care (01) ==
LOC: PC 07:11
PROVIDERS: PCP Nurse Practitioner Adult Health; Visit Provider Preventive Medicine Occupational Medicine
DX: M54.50 Low back pain, unspecified (principal); M47.816 Spondylosis without myelopathy or radiculopathy, lumbar region
CPT/HCPCS: 64635; 64636; 72100; J0665; J1010; J2003; J2250; J3010

== ENCOUNTER 2025-05-13 03:28 | Outpatient (CLI) | payer MEDICARE, SELFPAY ==
--- NOTE | 2025-05-13 06:45 | DI.US_ITS ---
Exam(s) US RENAL EXAM: US RENAL CLINICAL HISTORY: monitoring calculi,NEPHROLITHASIS,N20.0. TECHNIQUE: Rosales scale, color and spectral Doppler were used. COMPARISON: CT CT CHEST PE ABD PELVIS W from 04/26/2023 US US RENAL from 05/16/2024 FINDINGS: Renal size in cm: Right: 10.0. Left: 10.2. Echogenicity: Normal. Hydronephrosis: No. Cyst or mass: On the right kidney, there are several cysts present. The largest measures 3.6 x 4.2 x 4.4 cm and is located inferiorly. On the left kidney there is a single 1.3 x 1.3 x 1.3 cm simple cyst present. Nephrolithiasis: There are echogenic foci seen in the right kidney consistent with nephrolithiasis. The largest measures 4 mm. Other findings: None. Bladder:The bladder was incompletely distended limiting evaluation. No gross abnormalities identified. Ureteral jets: Right: Visualized and unremarkable. Left: Visualized and unremarkable. Prevoid vol:71 cc Postvoid vol:0 cc Prostate: Prostate gland was not well visualized. It was not enlarged. Renal color flow: Symmetric and within normal limits. IMPRESSION: 1. Right nephrolithiasis. No hydronephrosis. 2. Bilateral renal cysts. No follow-up is recommended. DATA REPOSITORY:
== END 2025-05-13 03:48 ==
LOC: DI 03:28
PROVIDERS: PCP Nurse Practitioner Adult Health; Visit Provider Nurse Practitioner Gerontology
DX: N20.0 Calculus of kidney (principal)
CPT/HCPCS: 76770

== ENCOUNTER → 2025-05-21 09:59 | Outpatient (BNVA) | payer MEDICARE, SELFPAY | PROVIDERS: PCP Nurse Practitioner Adult Health; Referring Provider Nurse Practitioner Adult Health; Visit Provider Physician Assistant Surgical | DX: J44.1 Chronic obstructive pulmonary disease with (acute) exacerbation (principal); J39.8 Other specified diseases of upper respiratory tract; R05.3 Chronic cough; R91.1 Solitary pulmonary nodule; Z87.891 Personal history of nicotine dependence; I25.10 Atherosclerotic heart disease of native coronary artery without angina pectoris | CPT/HCPCS: 99214 ==

== ENCOUNTER → 2025-05-22 10:20 | Outpatient (BNVA) | payer MEDICARE, SELFPAY | PROVIDERS: PCP Nurse Practitioner Adult Health; Visit Provider Nurse Practitioner Gerontology | DX: N20.2 Calculus of kidney with calculus of ureter (principal) | CPT/HCPCS: 99213 ==

== ENCOUNTER 2025-05-23 11:23 | Outpatient (RCR) | payer MEDICARE, SELFPAY ==
--- NOTE | 2025-05-23 11:30 | RT.EKG_ITS ---
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
--- NOTE | 2025-05-28 12:16 | W.HOLTRPT ---
Date of service: 05/28/25 Time of Service: 12:16 Holter Monitor Report Referring Provider:: Adrianne Dejesus Indications:: COPD Holter Monitor Note: This is a 48-hour Holter monitor Rhythm throughout was sinus with an average heart rate of 93. Minimum was 62, maximum 138 There were occasional premature ventricular contractions. A total of 5 brief runs of nonsustained ventricular tachycardia were recorded, all less than 5 beats in length There were rare atrial premature beats There was no atrial fibrillation, no high-grade AV block, no pauses greater than 3 seconds Reported symptoms correlated to sinus rhythm
== END 2025-06-16 23:59 | disposition home or self-care (01) ==
LOC: CARDOPNVT 11:23
PROVIDERS: PCP Nurse Practitioner Adult Health; Visit Provider Physician Assistant Surgical
DX: I25.10 Atherosclerotic heart disease of native coronary artery without angina pectoris (principal); R06.09 Other forms of dyspnea; I47.29 Other ventricular tachycardia
CPT/HCPCS: 93227; 93005; 93010; 93225; 93226

== ENCOUNTER → 2025-06-20 10:40 | Outpatient (BNVA) | payer MEDICARE, SELFPAY | PROVIDERS: PCP Nurse Practitioner Adult Health; Referring Provider Nurse Practitioner Adult Health; Visit Provider Physician Assistant Surgical | DX: J44.1 Chronic obstructive pulmonary disease with (acute) exacerbation (principal); J39.8 Other specified diseases of upper respiratory tract; R05.3 Chronic cough; R91.1 Solitary pulmonary nodule; Z87.891 Personal history of nicotine dependence | CPT/HCPCS: 99214; 94618 ==

== ENCOUNTER 2025-06-24 01:39 | Outpatient (CLI) | payer MEDICARE, SELFPAY ==
[2025-06-24] MEDS: Inhaler, Assist Device 1 EACH MC (09:02)
[2025-06-24] MEDS: Levalbuterol HFA 15 GM INH 4 PUFF IH (09:02)
--- NOTE | 2025-06-25 08:29 | W.PFT ---
Date of service: 06/24/25 Time of Service: 08:04 Pulmonary Function Test Result Indications: COPD Impression 1. Good patient effort was noted. ATS standards for reproducibility were met. 2. Spirometry showed moderate obstructive lung disease with an FEV1 of 53% (1.22 L) 3. Following the administration of a bronchodilator there was not a significant response 4. TLC was normal. No evidence of restrictive lung disease 5. DLCO was 79%, consistent with a very mild defect in alveolar gas exchange
== END 2025-06-24 01:40 | disposition home or self-care (01) ==
PROVIDERS: PCP Nurse Practitioner Adult Health; Visit Provider Physician Assistant Surgical
DX: J44.9 Chronic obstructive pulmonary disease, unspecified (principal)
CPT/HCPCS: 94060; 94726; 94729

== ENCOUNTER → 2025-07-01 07:20 | Outpatient (CLI) | payer MEDICARE, SELFPAY ==
--- NOTE | 2025-07-01 08:55 | DI.CT_ITS ---
Exam(s) CT CHEST WO EXAM: CT CHEST WO CLINICAL HISTORY: worsening dyspnea,copd,j44.9. TECHNIQUE: Imaging protocol: Axial computed tomography images were obtained and coronal and sagittal reformatted images were created and reviewed. Lung Computer Aided Detection (CAD) was utilized. COMPARISON: CT CT CHEST PE ABD PELVIS W from 04/26/2023 CR XR CHEST 2V PA LATERAL from 09/09/2024 FINDINGS: Tracheobronchial tree: Patent where visualized. No bronchiectasis is present. Pulmonary parenchyma: There are no focal consolidating infiltrates present. There are linear areas of atelectasis and scarring present in the lungs. There are calcified granulomas present. Mediastinum and Nohemi: No dominant adenopathy or fluid collection. The esophagus is unremarkable. Thyroid gland: Unremarkable. Pleura: No effusion or pneumothorax. Heart: There is cardiomegaly. Coronary artery calcification and/or stents are present. No pericardial effusion. Aorta: The ascending thoracic aorta measures 4.1 x 3.7 cm. Atherosclerotic calcification is present. Upper abdomen: There is bilateral nephrolithiasis. There are again seen right renal cysts. No follow-up is recommended. Lymph nodes: Within normal limits. Tubes, Catheters, and Lines: Soft tissues: There is mild bilateral gynecomastia. Bones:Within normal limits for the patient's age. There are marked degenerative changes seen at the right glenohumeral joint. Sternal wires are in place. There is an old anterior wedging of T11. IMPRESSION: 1. There is no acute pulmonary process. 2. Cardiomegaly, coronary artery calcification and atherosclerotic calcification. 3. Mild cardiomegaly. RADIATION DOSE DELIVERED: 596.7mGy.cm Total DLP 596.7mGy.cm Total DLP DATA REPOSITORY: All CT scans at this facility are submitted to the National Radiology Data Registry (NRDR) Dose Index Registry (DIR) with the [employer] ([employer]). RADIATION OPTIMIZATION: All CT scans at this facility use at least one of these dose optimization techniques: automated exposure control; mA and/or kV adjustment per patient size (includes targeted exams where dose is matched to clinical indication); or iterative reconstruction.
== END ==
LOC: DI 07:20
PROVIDERS: PCP Nurse Practitioner Adult Health; Visit Provider Physician Assistant Surgical
DX: J44.9 Chronic obstructive pulmonary disease, unspecified (principal); I51.7 Cardiomegaly
CPT/HCPCS: 71250